=== PATIENT | male | born 1955 | race Caucasian/White ===

== ENCOUNTER 2017-04-26 12:38 | Inpatient (IN) | payer OTHER ==
[~2017-04-26] VITALS: Ht 182.9 cm; Wt 77.1 kg
[2017-04-26] MEDS ORDERED: Morphine Sulfate 10mg/ml Inj IVP ONE (13:15)
[2017-04-26 14:29] LABS: BASOPHILS % (AUTO) 1.2 % (0.0-2.0); EOSINOPHILS % (AUTO) 3.4 % (0.0-3.0); LYMPHOCYTES % (AUTO) 35.4 % (20.0-45.0); MEAN CORPUSCULAR HEMOGLOBIN 37.7 PG (27.0-31.0); MEAN CORPUSCULAR HGB CONC 34.9 G/DL (32.0-36.0); MEAN CORPUSCULAR VOLUME 108 FL (80-99); MONOCYTES % (AUTO) 9.2 % (1.0-10.0); NEUTROPHILS % (AUTO) 50.8 % (45.0-75.0); PLATELET COUNT 184 K/UL (150-450); RED BLOOD COUNT 4.31 M/UL (4.70-6.10); RED CELL DISTRIBUTION WIDTH 10.5 % (11.6-14.8); WHITE BLOOD COUNT 5.6 K/UL (4.8-10.8)
[2017-04-26 14:30] VITALS: BP 120/73
[2017-04-26 14:38] LABS: APPEARANCE,URINE CLEAR; KETONES,URINE NEGATIVE (NEGATIVE); LEUKOCYTE ESTERASE ,URINE NEGATIVE (NEGATIVE); NITRITE,URINE NEGATIVE (NEGATIVE); PH,URINE 5 (4.5-8.0); PROTEIN,URINE NEGATIVE (NEGATIVE); UROBILINOGEN,URINE NORMAL MG/DL (0.0-1.0)
[2017-04-26 14:48] LABS: ALANINE AMINOTRANSFERASE 189 U/L (12-78); ALBUMIN/GLOBULIN RATIO 0.9 (1.0-2.7); AMYLASE 159 U/L (25-115); ANION GAP 12 mmol/L (5-15); ASPARTATE AMINO TRANSFERASE 104 U/L (15-37); CALCIUM 9.3 MG/DL (8.5-10.1); CARBON DIOXIDE 22 MMOL/L (21-32); CHLORIDE 107 MMOL/L (98-107); CREATININE 0.9 MG/DL (0.55-1.30); GLOMERULAR FILTRATION RATE > 60 mL/min (>60); LIPASE 690 U/L (73-393); POTASSIUM 4.2 MMOL/L (3.5-5.1); SODIUM 141 MMOL/L (136-145); TOTAL PROTEIN 9.3 G/DL (6.4-8.2)
[2017-04-26] MEDS ORDERED: Morphine Sulfate 4mg/ml Inj IVP ONE (16:00)
--- NOTE | 2017-04-26 16:20 | Diagnostic Imaging Report ---
Indication: Abdominal pain Technique: Continuous helical transaxial imaging of the abdomen and pelvis was obtained from the lung bases to the pubic symphysis during intravenous contrast administration. Coronal 2-D reformats were also obtained. Study obtained in a Siemens sensation [address] Automatic Exposure Control was utilized. Total Dose length Product (DLP): [address] Dose Index Volume (CTDIvol): 12.57, 0.15 mGy Comparison: None Findings: There is mild posterior basilar atelectasis. Gallbladder is distended but otherwise unremarkable. The liver is low in attenuation consistent with fatty infiltration. Surgical clips noted at the gastric hiatus at the diaphragm level. A small hiatal hernia is noted. The pancreas and spleen unremarkable. There is no adrenal mass. Tiny low-density lesions demonstrated within both kidneys. The above the umbilicus the linea alba is markedly attenuated with suggestion of multiple small areas of mesenteric fat herniation into the subcutaneous fat. There is also an umbilical hernia containing fat. Diverticula noted in the sigmoid colon. No free fluid or free air identified. Moderate arterial calcifications are present. Moderate facet hypertrophy and sclerosis noted at the lower lumbar spine. Impression: Is fatty liver. Atherosclerotic disease. Multiple epigastric fat-containing hernias and a small umbilical hernia containing fat Diverticulosis of the colon. Surgery at the diaphragmatic hiatus. Small hiatal hernia noted. Lower lumbar facet arthropathy The CT scanner at [facility] is accredited by the [employer] and the scans are performed using dose optimization techniques as appropriate to a performed exam including Automatic Exposure control.
[2017-04-26 16:29] VITALS: BP 97/66
[2017-04-26 17:00] VITALS: BP 110/74
[2017-04-26] MEDS ORDERED: Miralax 17gm pkt ORAL PRN (17:00)
[2017-04-26] MEDS ORDERED: Mylanta II UD 30ml ORAL PRN (17:00)
[2017-04-26] MEDS ORDERED: D5 1/2NS 1,000 ML IV SCH (17:30)
[2017-04-26] MEDS: D5 1/2NS 1,000 ML IV SCH (18:43)
[2017-04-26 20:00] VITALS: BP 110/74
--- NOTE | 2017-04-26 20:22 | History and Physical ---
History of Present Illness General Reason for Hospitalization: Abdominal Pain Present Illness Allergies: Coded Allergies: No Known Allergies (Unverified , 06/01/16) Medication History No Active Prescriptions or Reported Meds Patient History Healthcare decision maker Resuscitation status Full Code Advanced Directive on File Family History Family History: Patient reports no known family medical history. Physical Exam Last 24 Hour Vital Signs Date Time Temp Pulse Resp B/P (MAP) Pulse Ox O2 Delivery O2 Flow Rate FiO2 04/26/17 20:00 97.3 72 19 110/74 95 Room Air 04/26/17 17:00 97.3 82 18 110/74 93 Room Air 04/26/17 16:30 98.1 78 20 113/72 94 Room Air 04/26/17 16:29 98.1 78 20 97/66 94 Room Air 04/26/17 14:30 97.9 90 15 120/73 98 Room Air 04/26/17 12:47 97.9 106 20 119/71 98 Room Air Intake and Output 04/26/17 04/27/17 19:00 07:00 Intake Total 1000 ml Output Total 550 ml Balance 450 ml Intake IV Total 1000 ml Output Urine Total 550 ml # Voids 3 Laboratory Tests Test 04/26/17 13:25 04/26/17 13:29 Urine Color Pale yellow Urine Appearance Clear Urine pH 5 (4.5-8.0) Urine Specific [place] 1.005 (1.005-1.035) Urine Protein Negative (NEGATIVE) Urine Glucose (UA) Negative (NEGATIVE) Urine Ketones Negative (NEGATIVE) Urine Occult Blood Negative (NEGATIVE) Urine Nitrite Negative (NEGATIVE) Urine Bilirubin Negative (NEGATIVE) Urine Urobilinogen Normal MG/DL (0.0-1.0) Urine Leukocyte Esterase Negative (NEGATIVE) White Blood Count 5.6 K/UL (4.8-10.8) Red Blood Count 4.31 M/UL (4.70-6.10) L Hemoglobin 16.2 G/DL (14.2-18.0) Hematocrit 46.6 % (42.0-52.0) Mean Corpuscular Volume 108 FL (80-99) H Mean Corpuscular Hemoglobin 37.7 PG (27.0-31.0) H Mean Corpuscular Hemoglobin Concent 34.9 G/DL (32.0-36.0) Red Cell Distribution Width 10.5 % (11.6-14.8) L Platelet Count 184 K/UL (150-450) Mean Platelet Volume 7.0 FL (6.5-10.1) Neutrophils (%) (Auto) 50.8 % (45.0-75.0) Lymphocytes (%) (Auto) 35.4 % (20.0-45.0) Monocytes (%) (Auto) 9.2 % (1.0-10.0) Eosinophils (%) (Auto) 3.4 % (0.0-3.0) H Basophils (%) (Auto) 1.2 % (0.0-2.0) Prothrombin Time 10.0 SEC (9.30-11.50) Prothromb Time International Ratio 1.0 (0.9-1.1) Activated Partial Thromboplast Time 28 SEC (23-33) Sodium Level 141 MMOL/L (136-145) Potassium Level 4.2 MMOL/L (3.5-5.1) Chloride Level 107 MMOL/L (98-107) Carbon Dioxide Level 22 MMOL/L (21-32) Anion Gap 12 mmol/L (5-15) Blood Urea Nitrogen 11 mg/dL (7-18) Creatinine 0.9 MG/DL (0.55-1.30) Estimat Glomerular Filtration Rate > 60 mL/min (>60) Glucose Level 85 MG/DL (74-106) Calcium Level 9.3 MG/DL (8.5-10.1) Total Bilirubin 0.3 MG/DL (0.2-1.0) Aspartate Amino Transf (AST/SGOT) 104 U/L (15-37) H Alanine Aminotransferase (ALT/SGPT) 189 U/L (12-78) H Alkaline Phosphatase 55 U/L (46-116) Troponin I 0.000 ng/mL (0.000-0.056) Total Protein 9.3 G/DL (6.4-8.2) H Albumin 4.3 G/DL (3.4-5.0) Globulin 5.0 g/dL Albumin/Globulin Ratio 0.9 (1.0-2.7) L Amylase Level 159 U/L (25-115) H Lipase 690 U/L (73-393) H Serum Alcohol 340 mg/dL Height (Feet): 6 Height (Inches): 0.00 Weight (Pounds): 170 Medications Current Medications Medications (Trade) Dose Ordered Sig/Mukesh Route PRN Reason Start Time Stop Time Status Last Admin Dose Admin Acetaminophen (Tylenol) 650 mg Q4H PRN ORAL Mild Pain (Pain Scale 1-3) 04/26/17 17:00 05/26/17 16:59 Al Hydroxide/Mg Hydroxide (Mylanta II) 30 ml Q6H PRN ORAL dyspepsia 04/26/17 17:00 05/26/17 16:59 Dextrose (Dextrose 50%) STAT PRN IV Hypoglycemia 04/26/17 17:00 05/26/17 16:59 Dextrose/Sodium Chloride 1,000 ml @ 125 mls/hr Q8H IV 04/26/17 17:30 05/26/17 17:29 04/26/17 18:43 Diphenhydramine HCl (Benadryl) 25 mg Q6H PRN ORAL Itching/Pruritis 04/26/17 17:00 05/26/17 16:59 Docusate Sodium (Colace) 100 mg EVERY 12 HOURS ORAL 04/26/17 21:00 05/26/17 20:59 Folic Acid 1 mg/ Magnesium Sulfate 2000 mg/ Multivitamins 10 ml/Sodium Chloride 1,014.2 ml @ 125 mls/ hr Q24H IV 04/26/17 20:00 05/26/17 19:59 Ondansetron HCl (Zofran) 4 mg Q6H PRN IVP Nausea & Vomiting 04/26/17 17:00 05/26/17 16:59 Pantoprazole (Protonix) 40 mg DAILY IV 04/26/17 18:00 05/26/17 17:59 Polyethylene Glycol (Miralax) 17 gm HSPRN PRN ORAL Constipation 04/26/17 17:00 05/26/17 16:59 Thiamine HCl 100 mg/Dextrose 56 ml @ 112 mls/hr Q24H IVPB 04/26/17 20:00 05/26/17 19:59 Guzman Garcia M.D. Apr 26, 2017 20:22
[2017-04-26] MEDS: Thiamine 100mg in D5W 55ml IVPB SCH (20:49)
[2017-04-26] MEDS: Folic Acid 1 MG, Magnesium Sulfate 2,000 MG, Multivitamin - 12 Injection 10 ML in NS w/... IV SCH (20:49)
[2017-04-26] MEDS: Docusate 100mg cap ORAL SCH (20:50)
[2017-04-26] MEDS: Pantoprazole Inj IV SCH (20:51)
[2017-04-26] MEDS: Morphine Sulfate 4mg/ml Inj IVP PRN (22:08)
[2017-04-26 23:53] VITALS: BP 125/84
[2017-04-27] MEDS: D5 1/2NS 1,000 ML IV SCH ×3 (01:28→17:57)
[2017-04-27 04:00] VITALS: BP 116/81
[2017-04-27] MEDS: Morphine Sulfate 4mg/ml Inj IVP PRN ×2 (05:54→11:45)
[2017-04-27 07:14] LABS: MEAN CORPUSCULAR HEMOGLOBIN 36.1 PG (27.0-31.0); MEAN CORPUSCULAR HGB CONC 31.8 G/DL (32.0-36.0); MEAN CORPUSCULAR VOLUME 114 FL (80-99); MEAN PLATELET VOLUME 6.7 FL (6.5-10.1); PLATELET COUNT 137 K/UL (150-450); RED BLOOD COUNT 3.92 M/UL (4.70-6.10); RED CELL DISTRIBUTION WIDTH 10.8 % (11.6-14.8); WHITE BLOOD COUNT 5.6 K/UL (4.8-10.8)
[2017-04-27 07:43] LABS: ALANINE AMINOTRANSFERASE 157 U/L (12-78); ANION GAP 12 mmol/L (5-15); ASPARTATE AMINO TRANSFERASE 80 U/L (15-37); CALCIUM 8.6 MG/DL (8.5-10.1); CARBON DIOXIDE 22 MMOL/L (21-32); CHLORIDE 110 MMOL/L (98-107); CREATININE 0.9 MG/DL (0.55-1.30); GLOMERULAR FILTRATION RATE > 60 mL/min (>60); MAGNESIUM 2.7 MG/DL (1.8-2.4); POTASSIUM 4.6 MMOL/L (3.5-5.1); SODIUM 144 MMOL/L (136-145); TOTAL PROTEIN 7.5 G/DL (6.4-8.2)
[2017-04-27] MEDS: Docusate 100mg cap ORAL SCH ×2 (08:39→21:58)
[2017-04-27] MEDS: Pantoprazole Inj IV SCH (08:39)
[2017-04-27 08:46] VITALS: BP 135/89
[2017-04-27 10:29] LABS: ANISOCYTOSIS 1+; BAND NEUTROPHILS % (MANUAL) 0 % (0-8); BASOPHILS % (MANUAL) 0 % (0-2); EOSINOPHILS % (MANUAL) 2 % (0-3); LYMPHOCYTES % (MANUAL) 22 % (20-45); MACROCYTES 2+; NEUTROPHILS % (MANUAL) 68 % (45-75); PLATELET ESTIMATE DECREASED; TOTAL CELLS COUNTED 100
[2017-04-27 10:30] LABS: PLATELET MORPHOLOGY NORMAL
[2017-04-27 12:02] VITALS: BP 134/83
[2017-04-27] MEDS ORDERED: chlordiazePOXIDE 25mg Cap ORAL PRN (12:45)
[2017-04-27] MEDS ORDERED: Thiamine HCl 100 MG, Folic Acid 1 MG, Magnesium Sulfate 2,000 MG, Multivitamin - 12 Inj... IV SCH ×5 (12:45)
--- NOTE | 2017-04-27 12:53 | GI Initial Consult Note ---
History of Present Illness General Date patient seen: Apr 27, 2017 Time patient seen: 12:48 Reason for Hospitalization: Abdominal Pain Referring physician: CAREN DUBON Reason for Consultation: PANCREATITIS Present Illness HPI Patient is a 61-year-old male presented after increased abdominal pain after recent heavy alcohol intake. Patient reported having increased abdominal bloating. Patient prior history of pancreatitis. Patient states that he had a partial gastrectomy in the past and had prior abdominal surgery. Pain did not radiate he denied any hematemesis or bloody stools. Patient reports having a no fever he reported having pain for several days. Pt seen this morning awake A &Ox4 NAD c/o of LUQ 5/10 pain. The patient denies any medical history. However , states he's been a heavy drinker his entire life; approximately 4-5 40 ounces of beer per day over the past 30+ years. Pt is also a tobacco user, denies any drug above. Denies any N/V or any diarrhea at this time. States he's had a colonoscopy within the past 5 years with unremarkable results. History of Hep C. He presents today with elevated lipase levels of 690 , transaminitis, and serum alcohol of 340. Home Meds No Active Prescriptions or Reported Meds Med list reviewed/reconciled: Yes Allergies: Coded Allergies: No Known Allergies (Unverified , 06/01/16) Patient History History Provided By: Patient, Medical Record Family History Narrative Past Medical History: No History, Except For Social History: Reports: alcohol use, smoking Review of Systems All Other Systems: negative except mentioned in HPI Physical Exam Vital Signs Date Time Temp Pulse Resp B/P (MAP) Pulse Ox O2 Delivery O2 Flow Rate FiO2 04/26/17 12:47 97.9 106 20 119/71 98 Room Air Sp02 EP Interpretation: reviewed, normal Labs Laboratory Tests Test 04/26/17 13:25 04/26/17 13:29 04/27/17 05:15 Urine Color Pale yellow Urine Appearance Clear Urine pH 5 (4.5-8.0) Urine Specific [place] 1.005 (1.005-1.035) Urine Protein Negative (NEGATIVE) Urine Glucose (UA) Negative (NEGATIVE) Urine Ketones Negative (NEGATIVE) Urine Occult Blood Negative (NEGATIVE) Urine Nitrite Negative (NEGATIVE) Urine Bilirubin Negative (NEGATIVE) Urine Urobilinogen Normal MG/DL (0.0-1.0) Urine Leukocyte Esterase Negative (NEGATIVE) White Blood Count 5.6 K/UL (4.8-10.8) 5.6 K/UL (4.8-10.8) Red Blood Count 4.31 M/UL (4.70-6.10) L 3.92 M/UL (4.70-6.10) L Hemoglobin 16.2 G/DL (14.2-18.0) 14.2 G/DL (14.2-18.0) Hematocrit 46.6 % (42.0-52.0) 44.5 % (42.0-52.0) Mean Corpuscular Volume 108 FL (80-99) H 114 FL (80-99) H Mean Corpuscular Hemoglobin 37.7 PG (27.0-31.0) H 36.1 PG (27.0-31.0) H Mean Corpuscular Hemoglobin Concent 34.9 G/DL (32.0-36.0) 31.8 G/DL (32.0-36.0) L Red Cell Distribution Width 10.5 % (11.6-14.8) L 10.8 % (11.6-14.8) L Platelet Count 184 K/UL (150-450) 137 K/UL (150-450) L Mean Platelet Volume 7.0 FL (6.5-10.1) 6.7 FL (6.5-10.1) Neutrophils (%) (Auto) 50.8 % (45.0-75.0) % (45.0-75.0) Lymphocytes (%) (Auto) 35.4 % (20.0-45.0) % (20.0-45.0) Monocytes (%) (Auto) 9.2 % (1.0-10.0) % (1.0-10.0) Eosinophils (%) (Auto) 3.4 % (0.0-3.0) H % (0.0-3.0) Basophils (%) (Auto) 1.2 % (0.0-2.0) % (0.0-2.0) Prothrombin Time 10.0 SEC (9.30-11.50) Prothromb Time International Ratio 1.0 (0.9-1.1) Activated Partial Thromboplast Time 28 SEC (23-33) Sodium Level 141 MMOL/L (136-145) 144 MMOL/L (136-145) Potassium Level 4.2 MMOL/L (3.5-5.1) 4.6 MMOL/L (3.5-5.1) Chloride Level 107 MMOL/L (98-107) 110 MMOL/L (98-107) H Carbon Dioxide Level 22 MMOL/L (21-32) 22 MMOL/L (21-32) Anion Gap 12 mmol/L (5-15) 12 mmol/L (5-15) Blood Urea Nitrogen 11 mg/dL (7-18) 9 mg/dL (7-18) Creatinine 0.9 MG/DL (0.55-1.30) 0.9 MG/DL (0.55-1.30) Estimat Glomerular Filtration Rate > 60 mL/min (>60) > 60 mL/min (>60) Glucose Level 85 MG/DL (74-106) 71 MG/DL (74-106) L Calcium Level 9.3 MG/DL (8.5-10.1) 8.6 MG/DL (8.5-10.1) Total Bilirubin 0.3 MG/DL (0.2-1.0) 0.5 MG/DL (0.2-1.0) Aspartate Amino Transf (AST/SGOT) 104 U/L (15-37) H 80 U/L (15-37) H Alanine Aminotransferase (ALT/SGPT) 189 U/L (12-78) H 157 U/L (12-78) H Alkaline Phosphatase 55 U/L (46-116) 47 U/L (46-116) Troponin I 0.000 ng/mL (0.000-0.056) Total Protein 9.3 G/DL (6.4-8.2) H 7.5 G/DL (6.4-8.2) Albumin 4.3 G/DL (3.4-5.0) 3.7 G/DL (3.4-5.0) Globulin 5.0 g/dL 3.8 g/dL Albumin/Globulin Ratio 0.9 (1.0-2.7) L 1.0 (1.0-2.7) Amylase Level 159 U/L (25-115) H Lipase 690 U/L (73-393) H Serum Alcohol 340 mg/dL Differential Total Cells Counted 100 Neutrophils % (Manual) 68 % (45-75) Lymphocytes % (Manual) 22 % (20-45) Monocytes % (Manual) 8 % (1-10) Eosinophils % (Manual) 2 % (0-3) Basophils % (Manual) 0 % (0-2) Band Neutrophils 0 % (0-8) Platelet Estimate Decreased L Platelet Morphology Normal Anisocytosis 1+ Macrocytosis 2+ Phosphorus Level 3.5 MG/DL (2.5-4.9) Magnesium Level 2.7 MG/DL (1.8-2.4) H General Appearance: well appearing, no apparent distress, alert Head: normocephalic EENT: PERRL/EOMI, normal ENT inspection Neck: supple Respiratory: normal breath sounds, no respiratory distress Cardiovascular: normal rate Gastrointestinal: normal inspection, non tender, soft, normal bowel sounds, non -distended Rectal: deferred Genitourinary: deferred Musculoskeletal: normal inspection, back normal Neurologic: normal inspection, alert, oriented x3, responsive Psychiatric: normal inspection, judgement/insight normal, memory normal Skin: normal inspection, normal color, no rash, warm/dry, palpation normal, well hydrated Lymphatic: normal inspection, no adenopathy Current Medications Current Medications Medications (Trade) Dose Ordered Sig/M[place]esh Route PRN Reason Start Time Stop Time Status Last Admin Dose Admin Acetaminophen (Tylenol) 650 mg Q4H PRN ORAL Mild Pain (Pain Scale 1-3) 04/26/17 17:00 05/26/17 16:59 Al Hydroxide/Mg Hydroxide (Mylanta II) 30 ml Q6H PRN ORAL dyspepsia 04/26/17 17:00 05/26/17 16:59 Dextrose (Dextrose 50%) STAT PRN IV Hypoglycemia 04/26/17 17:00 05/26/17 16:59 Dextrose/Sodium Chloride 1,000 ml @ 125 mls/hr Q8H IV 04/26/17 17:30 05/26/17 17:29 04/27/17 06:20 Diphenhydramine HCl (Benadryl) 25 mg Q6H PRN ORAL Itching/Pruritis 04/26/17 17:00 05/26/17 16:59 Docusate Sodium (Colace) 100 mg EVERY 12 HOURS ORAL 04/26/17 21:00 05/26/17 20:59 04/27/17 08:39 Folic Acid 1 mg/ Magnesium Sulfate 2000 mg/ Multivitamins 10 ml/Sodium Chloride 1,014.2 ml @ 125 mls/ hr Q24H IV 04/26/17 20:00 05/26/17 19:59 04/26/17 20:49 Morphine Sulfate (Morphine Sulfate) 4 mg Q4H PRN IVP For Moderate to Severe Pain 04/26/17 21:30 05/03/17 21:29 04/27/17 11:45 Ondansetron HCl (Zofran) 4 mg Q6H PRN IVP Nausea & Vomiting 04/26/17 17:00 05/26/17 16:59 04/27/17 08:38 Pantoprazole (Protonix) 40 mg DAILY IV 04/26/17 18:00 05/26/17 17:59 04/27/17 08:39 Polyethylene Glycol (Miralax) 17 gm HSPRN PRN ORAL Constipation 04/26/17 17:00 05/26/17 16:59 Thiamine HCl 100 mg/Dextrose 56 ml @ 112 mls/hr Q24H IVPB 04/26/17 20:00 05/26/17 19:59 04/26/17 20:49 GI: Plan Problems: (1) Pancreatitis, acute (2) Alcohol abuse (3) Abnormal LFTs Plan CT AP noted >> fatty liver abdominal U/S pending serum ETOH 340 elevated lipase 360 CLD, adv as tolerated banana bag IV pain mgmt Librium prn hepatitis panel ppi fu labs, lipase Discussed with Dr. Yip. Thank you for this patient referral, we will follow. Keyana Neely N.P. Apr 27, 2017 12:53
[2017-04-27 15:39] VITALS: BP 111/73
--- NOTE | 2017-04-27 15:43 | History and Physical ---
History of Present Illness General Date patient seen: Apr 27, 2017 Reason for Hospitalization: Abdominal Pain Present Illness HPI 61 y/o male with a PMH of Hepatitis C, gastric ulcer s/p partial gastrectomy, and appendectomy who presents with recent heavy alcohol intake. He reports prior history of pancreatitis x 2. He reports epigastric pain that is constant and stabbing in nature. Reports non-bloody, nonbilious emesis. Reports tremors. States that he has been a heavy drinker for the last 40 years Denies diarrhea, constipation, fevers, chills, sob, cp. States that he had a colonoscopy several years ago with unremarkable results. He presents today with elevated lipase levels of 690, transaminitis, and serum alcohol of 340. Allergies: Coded Allergies: No Known Allergies (Unverified , 06/01/16) Medication History No Active Prescriptions or Reported Meds Patient History History Provided By: Patient Healthcare decision maker Resuscitation status Full Code Advanced Directive on File Family History Family History: Patient reports no known family medical history. Review of Systems Constitutional: Reports: other - tremors Eye: Reports: no symptoms ENT: Reports: no symptoms Respiratory: Reports: no symptoms Cardiovascular: Reports: no symptoms Gastrointestinal: Reports: abdominal pain, nausea, vomiting Genitourinary: Reports: no symptoms Musculoskeletal: Reports: no symptoms Skin: Reports: no symptoms Psychiatric: Reports: no symptoms Neurological: Reports: no symptoms Endocrine: Reports: no symptoms Physical Exam General Appearance: no apparent distress HEENT: normocephalic, atraumatic Neck: non-tender, normal alignment, supple Respiratory/Chest: chest wall non-tender, lungs clear, normal breath sounds Cardiovascular/Chest: normal peripheral pulses, regular rhythm, tachycardia Abdomen: normal bowel sounds, soft, other - tenderness Extremities: normal range of motion Skin Exam: normal pigmentation, warm/dry 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, no motor/sensory deficits, alert, oriented x 3 Last 24 Hour Vital Signs Date Time Temp Pulse Resp B/P (MAP) Pulse Ox O2 Delivery O2 Flow Rate FiO2 04/27/17 12:15 98.2 04/27/17 12:02 98.2 61 20 134/83 95 Room Air 04/27/17 08:46 97.7 72 20 135/89 96 Room Air 04/27/17 04:00 97.8 65 18 116/81 95 Room Air 04/26/17 23:53 97.9 66 18 125/84 95 Room Air 04/26/17 20:00 97.3 72 19 110/74 95 Room Air 04/26/17 17:00 97.3 82 18 110/74 93 Room Air 04/26/17 16:30 98.1 78 20 113/72 94 Room Air 04/26/17 16:29 98.1 78 20 97/66 94 Room Air Intake and Output 04/27/17 04/28/17 19:00 07:00 Intake Total 420 ml Balance 420 ml Intake Oral 420 ml # Voids 3 # Bowel Movements 1 Laboratory Tests Test 04/27/17 05:15 White Blood Count 5.6 K/UL (4.8-10.8) Red Blood Count 3.92 M/UL (4.70-6.10) L Hemoglobin 14.2 G/DL (14.2-18.0) Hematocrit 44.5 % (42.0-52.0) Mean Corpuscular Volume 114 FL (80-99) H Mean Corpuscular Hemoglobin 36.1 PG (27.0-31.0) H Mean Corpuscular Hemoglobin Concent 31.8 G/DL (32.0-36.0) L Red Cell Distribution Width 10.8 % (11.6-14.8) L Platelet Count 137 K/UL (150-450) L Mean Platelet Volume 6.7 FL (6.5-10.1) Neutrophils (%) (Auto) % (45.0-75.0) Lymphocytes (%) (Auto) % (20.0-45.0) Monocytes (%) (Auto) % (1.0-10.0) Eosinophils (%) (Auto) % (0.0-3.0) Basophils (%) (Auto) % (0.0-2.0) Differential Total Cells Counted 100 Neutrophils % (Manual) 68 % (45-75) Lymphocytes % (Manual) 22 % (20-45) Monocytes % (Manual) 8 % (1-10) Eosinophils % (Manual) 2 % (0-3) Basophils % (Manual) 0 % (0-2) Band Neutrophils 0 % (0-8) Platelet Estimate Decreased L Platelet Morphology Normal Anisocytosis 1+ Macrocytosis 2+ Sodium Level 144 MMOL/L (136-145) Potassium Level 4.6 MMOL/L (3.5-5.1) Chloride Level 110 MMOL/L (98-107) H Carbon Dioxide Level 22 MMOL/L (21-32) Anion Gap 12 mmol/L (5-15) Blood Urea Nitrogen 9 mg/dL (7-18) Creatinine 0.9 MG/DL (0.55-1.30) Estimat Glomerular Filtration Rate > 60 mL/min (>60) Glucose Level 71 MG/DL (74-106) L Calcium Level 8.6 MG/DL (8.5-10.1) Phosphorus Level 3.5 MG/DL (2.5-4.9) Magnesium Level 2.7 MG/DL (1.8-2.4) H Total Bilirubin 0.5 MG/DL (0.2-1.0) Aspartate Amino Transf (AST/SGOT) 80 U/L (15-37) H Alanine Aminotransferase (ALT/SGPT) 157 U/L (12-78) H Alkaline Phosphatase 47 U/L (46-116) Total Protein 7.5 G/DL (6.4-8.2) Albumin 3.7 G/DL (3.4-5.0) Globulin 3.8 g/dL Albumin/Globulin Ratio 1.0 (1.0-2.7) Height (Feet): 6 Height (Inches): 0.00 Weight (Pounds): 170 Medications Current Medications Medications (Trade) Dose Ordered Sig/[place] Route PRN Reason Start Time Stop Time Status Last Admin Dose Admin Acetaminophen (Tylenol) 650 mg Q4H PRN ORAL Mild Pain (Pain Scale 1-3) 04/26/17 17:00 05/26/17 16:59 Al Hydroxide/Mg Hydroxide (Mylanta II) 30 ml Q6H PRN ORAL dyspepsia 04/26/17 17:00 05/26/17 16:59 Chlordiazepoxide (Librium) 25 mg Q6H PRN ORAL Agitation 04/27/17 12:45 05/04/17 12:44 Dextrose (Dextrose 50%) STAT PRN IV Hypoglycemia 04/26/17 17:00 05/26/17 16:59 Dextrose/Sodium Chloride 1,000 ml @ 125 mls/hr Q8H IV 04/26/17 17:30 05/26/17 17:29 04/27/17 06:20 Diphenhydramine HCl (Benadryl) 25 mg Q6H PRN ORAL Itching/Pruritis 04/26/17 17:00 05/26/17 16:59 Docusate Sodium (Colace) 100 mg EVERY 12 HOURS ORAL 04/26/17 21:00 05/26/17 20:59 04/27/17 08:39 Folic Acid 1 mg/ Magnesium Sulfate 2000 mg/ Multivitamins 10 ml/Sodium Chloride 1,014.2 ml @ 125 mls/ hr Q24H IV 04/26/17 20:00 05/26/17 19:59 04/26/17 20:49 Morphine Sulfate (Morphine Sulfate) 4 mg Q4H PRN IVP For Moderate to Severe Pain 04/26/17 21:30 05/03/17 21:29 04/27/17 11:45 Ondansetron HCl (Zofran) 4 mg Q6H PRN IVP Nausea & Vomiting 04/26/17 17:00 05/26/17 16:59 04/27/17 08:38 Pantoprazole (Protonix) 40 mg DAILY IV 04/26/17 18:00 05/26/17 17:59 04/27/17 08:39 Polyethylene Glycol (Miralax) 17 gm HSPRN PRN ORAL Constipation 04/26/17 17:00 05/26/17 16:59 Thiamine HCl 100 mg/Dextrose 56 ml @ 112 mls/hr Q24H IVPB 04/26/17 20:00 05/26/17 19:59 04/26/17 20:49 Assessment/Plan Problem List: (1) Pancreatitis, acute ICD Codes: K85.90 - Acute pancreatitis without necrosis or infection, unspecified SNOMED: 161384764 (2) Alcohol abuse ICD Codes: F10.10 - Alcohol abuse, uncomplicated SNOMED: 61989718, 07544326 (3) Abnormal LFTs ICD Codes: R79.89 - Other specified abnormal findings of blood chemistry SNOMED: 281314616 (4) Fatty liver ICD Codes: K76.0 - Fatty (change of) liver, not elsewhere classified SNOMED: 185913862 Status: stable Assessment/Plan - Admit to inpatient - IVF - banana bag daily - librium prn - pain control and antiemetics - PPi - Trend lipase - Hepatitis panel - CLD and advance as tolerated - GI consulted. appreciate recs -- CT a/p reviewed showing fatty liver -- abdominal U/S pending d/w patient, RN Lexus Gray N.P. Apr 27, 2017 15:43
[2017-04-27 20:00] VITALS: BP 118/76
[2017-04-27] MEDS: Thiamine 100mg in D5W 55ml IVPB SCH (21:58)
[2017-04-27] MEDS: Folic Acid 1 MG, Magnesium Sulfate 2,000 MG, Multivitamin - 12 Injection 10 ML in NS w/... IV SCH (21:59)
[2017-04-28] VITALS: BP 123/85
[2017-04-28] MEDS: D5 1/2NS 1,000 ML IV SCH ×3 (01:53→10:21)
[2017-04-28 04:00] VITALS: BP 125/86
[2017-04-28 08:00] VITALS: BP 121/69
[2017-04-28 08:39] LABS: MEAN CORPUSCULAR HEMOGLOBIN 36.2 PG (27.0-31.0); MEAN CORPUSCULAR HGB CONC 32.2 G/DL (32.0-36.0); MEAN CORPUSCULAR VOLUME 112 FL (80-99); MEAN PLATELET VOLUME 7.3 FL (6.5-10.1); PLATELET COUNT 122 K/UL (150-450); RED BLOOD COUNT 3.99 M/UL (4.70-6.10); RED CELL DISTRIBUTION WIDTH 10.7 % (11.6-14.8); WHITE BLOOD COUNT 5.5 K/UL (4.8-10.8)
[2017-04-28 08:43] LABS: AMYLASE 110 U/L (25-115); ANION GAP 8 mmol/L (5-15); CALCIUM 8.7 MG/DL (8.5-10.1); CARBON DIOXIDE 25 MMOL/L (21-32); CHLORIDE 104 MMOL/L (98-107); GLOMERULAR FILTRATION RATE > 60 mL/min (>60); LIPASE 351 U/L (73-393); SODIUM 137 MMOL/L (136-145)
[2017-04-28] MEDS: Docusate 100mg cap ORAL SCH (08:59)
[2017-04-28 09:53] LABS: BAND NEUTROPHILS % (MANUAL) 1 % (0-8); BASOPHILS % (MANUAL) 1 % (0-2); LYMPHOCYTES % (MANUAL) 20 % (20-45); NEUTROPHILS % (MANUAL) 75 % (45-75); TOTAL CELLS COUNTED 100
[2017-04-28 09:54] LABS: EOSINOPHILS % (MANUAL) 0 % (0-3); PLATELET ESTIMATE DECREASED; PLATELET MORPHOLOGY NORMAL
--- NOTE | 2017-04-28 10:02 | Diagnostic Imaging Report ---
Indication:Abdominal pain. Elevated liver function tests. Elevated pancreatic enzymes Technique: Grayscale and duplex Doppler imaging of the abdomen performed. Comparison: None Findings: The liver is echogenic consistent with fatty infiltration. No gallstones are demonstrated. Some prominence of the CBD noted, nonspecific. This may be normal. Please correlate clinically. Small cysts are present within the right kidney. Pancreas is not seen due to bowel gas. There is no free fluid. Impression: Mild fatty liver. Pancreas not visualized due to bowel gas. Please refer to the CT abdomen report
[2017-04-28] MEDS: Pantoprazole Inj IV SCH (10:20)
[2017-04-28 11:53] VITALS: BP 122/71
[2017-04-28] MEDS ORDERED: Tubing IV Secondary IV ONE (11:59)
--- NOTE | 2017-04-28 13:16 | Discharge Summary ---
Discharge Summary Hospital Course Date of Admission Apr 26, 2017 at 15:31 Date of Discharge 04/28/17 Admitting Diagnosis pancreatitis Reason for Hospitalization: acute pancreatitis HPI 61 y/o male with a PMH of Hepatitis C, gastric ulcer s/p partial gastrectomy, and appendectomy who presents with recent heavy alcohol intake. He reports prior history of pancreatitis x 2. He reports epigastric pain that is constant and stabbing in nature. Reports non-bloody, nonbilious emesis. Reports tremors. States that he has been a heavy drinker for the last 40 years Denies diarrhea, constipation, fevers, chills, sob, cp. States that he had a colonoscopy several years ago with unremarkable results. He presents today with elevated lipase levels of 690, transaminitis, and serum alcohol of 340. Consultations GI Hospital Course Pt was admitted and seen by GI. He was kept NPO and on IVFs. Once improved, he was started on clear liquid diet and slowly advanced as tolerated. His LFTs downtrended. CT a/p showed no acute abnormality. U/S abd showed fatty liver. Discharge Medications Medication Profile: No Active Prescriptions or Reported Meds Discharge Condition Upon Discharge: stable Discharge Disposition Patient was discharged to Home (01) Discharge Diagnoses: (1) Pancreatitis, acute (2) Fatty liver (3) Alcohol abuse (4) Abnormal LFTs Guzman Garcia M.D. Apr 28, 2017 13:16
--- NOTE | 2017-04-28 14:37 | GI Progress Note ---
Assessment/Plan Problems: (1) Fatty liver ICD Codes: K76.0 - Fatty (change of) liver, not elsewhere classified SNOMED: 378534134 (2) Alcohol abuse ICD Codes: F10.10 - Alcohol abuse, uncomplicated SNOMED: 97235069, 26239505 (3) Pancreatitis, acute ICD Codes: K85.90 - Acute pancreatitis without necrosis or infection, unspecified SNOMED: 712604298 (4) Abnormal LFTs ICD Codes: R79.89 - Other specified abnormal findings of blood chemistry SNOMED: 553423694 Status: stable Status Narrative Discussed with Dr. Yip. Assessment/Plan CT AP noted >> fatty liver abdominal U/S pending serum ETOH 340 elevated lipase 360 okay for DC per GI standpoint regular diet pain mgmt Librium prn hepatitis panel ppi fu labs, lipase ETOH cessation education given Subjective Gastrointestinal/Abdominal: Reports: no symptoms Subjective ready to home Objective Last 24 Hour Vital Signs Date Time Temp Pulse Resp B/P (MAP) Pulse Ox O2 Delivery O2 Flow Rate FiO2 04/28/17 11:53 97.9 69 19 122/71 97 Room Air 04/28/17 08:00 98.3 72 19 121/69 96 Room Air 04/28/17 04:00 97.5 76 17 125/86 96 Room Air 04/28/17 00:00 97.6 70 18 123/85 96 Room Air 04/27/17 20:00 97.8 68 18 118/76 94 Room Air 04/27/17 15:39 98.4 58 19 111/73 94 Room Air Intake and Output 04/28/17 04/29/17 19:00 07:00 Intake Total 725 ml Output Total 700 ml Balance 25 ml Intake Oral 350 ml IV Total 375 ml Output Urine Total 700 ml Laboratory Tests Test 04/28/17 08:00 White Blood Count 5.5 K/UL (4.8-10.8) Red Blood Count 3.99 M/UL (4.70-6.10) L Hemoglobin 14.4 G/DL (14.2-18.0) Hematocrit 44.8 % (42.0-52.0) Mean Corpuscular Volume 112 FL (80-99) H Mean Corpuscular Hemoglobin 36.2 PG (27.0-31.0) H Mean Corpuscular Hemoglobin Concent 32.2 G/DL (32.0-36.0) Red Cell Distribution Width 10.7 % (11.6-14.8) L Platelet Count 122 K/UL (150-450) L Mean Platelet Volume 7.3 FL (6.5-10.1) Neutrophils (%) (Auto) % (45.0-75.0) Lymphocytes (%) (Auto) % (20.0-45.0) Monocytes (%) (Auto) % (1.0-10.0) Eosinophils (%) (Auto) % (0.0-3.0) Basophils (%) (Auto) % (0.0-2.0) Differential Total Cells Counted 100 Neutrophils % (Manual) 75 % (45-75) Lymphocytes % (Manual) 20 % (20-45) Monocytes % (Manual) 3 % (1-10) Eosinophils % (Manual) 0 % (0-3) Basophils % (Manual) 1 % (0-2) Band Neutrophils 1 % (0-8) Platelet Estimate Decreased L Platelet Morphology Normal Sodium Level 137 MMOL/L (136-145) Potassium Level 4.0 MMOL/L (3.5-5.1) Chloride Level 104 MMOL/L (98-107) Carbon Dioxide Level 25 MMOL/L (21-32) Anion Gap 8 mmol/L (5-15) Blood Urea Nitrogen 10 mg/dL (7-18) Creatinine 1.0 MG/DL (0.55-1.30) Estimat Glomerular Filtration Rate > 60 mL/min (>60) Glucose Level 152 MG/DL (74-106) H Calcium Level 8.7 MG/DL (8.5-10.1) Amylase Level 110 U/L (25-115) Lipase 351 U/L (73-393) Hepatitis A IgM Antibody Pending Hepatitis B Surface Antigen Pending Hepatitis B Core IgM Antibody Pending Hepatitis C Antibody Pending Height (Feet): 6 Height (Inches): 0.00 Weight (Pounds): 170 General Appearance: WD/WN, no apparent distress, alert Cardiovascular: normal rate Respiratory/Chest: normal breath sounds, no respiratory distress Abdominal Exam: normal bowel sounds, non tender, soft Extremities: normal range of motion, non-tender Keyana Neely N.PAng Apr 28, 2017 14:37
--- NOTE | 2017-04-30 00:15 | Emergency Room Report ---
History of Present Illness General Chief Complaint: Abdominal Pain Source: Patient Present Illness HPI 61-year-old male presents to the emergency department complaining of 10 on a 10 in severity epigastric and right upper quadrant abdominal pain x2 days with associated nausea and vomiting. Patient also reports that he spat up some blood -tinged due to. Patient denies bright red blood in his vomit. Patient denies black tarry stools or blood in the stool. Patient reports history of pancreatitis and alcohol use he states that he had alcohol use yesterday. Patient denies fevers, chills. He denies dizziness, syncope, chest pain, palpitations or rashes. He denies recent travel or ill contacts he denies constipation or diarrhea. Patient states that he feels that his abdomen is very bloated or distended. Patient denies appreciable abdominal tenderness. Allergies: Coded Allergies: No Known Allergies (Unverified , 06/01/16) Patient History Past Medical History: see triage record, other - ETOH and Pancreatitis Past Surgical History: none Pertinent Family History: none Social History: Reports: alcohol use Reviewed Nursing Documentation: PMH: Agreed, PSxH: Agreed Nursing Documentation-PMH Past Medical History: No History, Except For Hx Cardiac Problems: No Hx Cancer: No Hx Gastrointestinal Problems: Yes - pancreatitis History Of Psychiatric Problem: Yes - etoh abuse Hx Neurological Problems: No Review of Systems All Other Systems: negative except mentioned in HPI Physical Exam Vital Signs Date Time Temp Pulse Resp B/P (MAP) Pulse Ox O2 Delivery O2 Flow Rate FiO2 04/26/17 12:47 97.9 106 20 119/71 98 Room Air Sp02 EP Interpretation: reviewed, normal General Appearance: alert, GCS 15, mild distress, Chronically Ill Head: normocephalic, atraumatic Eyes: bilateral eye normal inspection, bilateral eye PERRL ENT: hearing grossly normal, no angioedema, normal voice Neck: full range of motion, supple/symm/no masses Respiratory: lungs clear, normal breath sounds, no respiratory distress, no wheezing, speaking full sentences Cardiovascular #1: regular rate, rhythm, no edema, normal capillary refill Gastrointestinal: normal bowel sounds, soft, tenderness - Epigastric ttp to deep palpation, no caput medusae, no jaundice or distention ntoed. Rectal: deferred Musculoskeletal: back normal, gait/station normal, normal range of motion, non- tender Neurologic: alert, oriented x3, responsive, motor strength/tone normal, sensory intact, speech normal, grossly normal Skin: normal color, no rash, warm/dry, well hydrated, other - no jaundice Medical Decision Making PA Attestation Dr. rodney is my supervising Physician whom patient management has been discussed with. Diagnostic Impression: Primary Impression: Pancreatitis, acute Qualified Codes: K85.20 - Alcohol induced acute pancreatitis without necrosis or infection ER Course 61-year-old male presents to the emergency department complaining of 10 on a 10 in severity epigastric and right upper quadrant abdominal pain x2 days with associated nausea and vomiting. Patient also reports that he spat up some blood -tinged due to. Patient denies bright red blood in his vomit. Patient denies black tarry stools or blood in the stool. Patient reports history of pancreatitis and alcohol use he states that he had alcohol use yesterday. Patient denies fevers, chills. He denies dizziness, syncope, chest pain, palpitations or rashes. He denies recent travel or ill contacts he denies constipation or diarrhea. Patient states that he feels that his abdomen is very bloated or distended. Patient denies appreciable abdominal tenderness. Ddx considered but are not limited to Diverticulitis, acute appy, diarrhea,UC, PUD, GE, pancreatitis, gallstone Vital signs: are WNL, pt. is afebrile H&PE are most consistent with Alcoholic Pancreatitis. ORDERS: -CBC, CMP: no leukocytosis, WNL Hb/HCT , Elevated LFT's, normal cr. - Elevated Lipase: 690, Amylase: 159 -Serum ETOH: 360 -Troponin: 0.00 -PT/PTT : WNL -UA: Unremarkable - EKG: - CT Abdomen & Pelvis with contrast: Fatty liver, hiatal and small umbillical hernia, previous surgical clips, and diverticulosis of the colon Per official radiology report- Please see report for specific details. ED INTERVENTIONS: -IV access -Pepcid IV -- 1000NS, Zantac 50mg, and ofran 4mg. DISPOSITION: at this time pt. will be admitted to Dr. Kinsey for Acute alcoholic pancreatitis. Dr. Kinsey agreed to admit the pt. and to continue pt. care management. Labs Test 04/27/17 05:15 04/28/17 08:00 White Blood Count 5.6 K/UL (4.8-10.8) 5.5 K/UL (4.8-10.8) Red Blood Count 3.92 M/UL (4.70-6.10) 3.99 M/UL (4.70-6.10) Hemoglobin 14.2 G/DL (14.2-18.0) 14.4 G/DL (14.2-18.0) Hematocrit 44.5 % (42.0-52.0) 44.8 % (42.0-52.0) Mean Corpuscular Volume 114 FL (80-99) 112 FL (80-99) Mean Corpuscular Hemoglobin 36.1 PG (27.0-31.0) 36.2 PG (27.0-31.0) Mean Corpuscular Hemoglobin Concent 31.8 G/DL (32.0-36.0) 32.2 G/DL (32.0-36.0) Red Cell Distribution Width 10.8 % (11.6-14.8) 10.7 % (11.6-14.8) Platelet Count 137 K/UL (150-450) 122 K/UL (150-450) Mean Platelet Volume 6.7 FL (6.5-10.1) 7.3 FL (6.5-10.1) Neutrophils (%) (Auto) % (45.0-75.0) % (45.0-75.0) Lymphocytes (%) (Auto) % (20.0-45.0) % (20.0-45.0) Monocytes (%) (Auto) % (1.0-10.0) % (1.0-10.0) Eosinophils (%) (Auto) % (0.0-3.0) % (0.0-3.0) Basophils (%) (Auto) % (0.0-2.0) % (0.0-2.0) Differential Total Cells Counted 100 100 Neutrophils % (Manual) 68 % (45-75) 75 % (45-75) Lymphocytes % (Manual) 22 % (20-45) 20 % (20-45) Monocytes % (Manual) 8 % (1-10) 3 % (1-10) Eosinophils % (Manual) 2 % (0-3) 0 % (0-3) Basophils % (Manual) 0 % (0-2) 1 % (0-2) Band Neutrophils 0 % (0-8) 1 % (0-8) Platelet Estimate Decreased Decreased Platelet Morphology Normal Normal Anisocytosis 1+ Macrocytosis 2+ Sodium Level 144 MMOL/L (136-145) 137 MMOL/L (136-145) Potassium Level 4.6 MMOL/L (3.5-5.1) 4.0 MMOL/L (3.5-5.1) Chloride Level 110 MMOL/L (98-107) 104 MMOL/L (98-107) Carbon Dioxide Level 22 MMOL/L (21-32) 25 MMOL/L (21-32) Anion Gap 12 mmol/L (5-15) 8 mmol/L (5-15) Blood Urea Nitrogen 9 mg/dL (7-18) 10 mg/dL (7-18) Creatinine 0.9 MG/DL (0.55-1.30) 1.0 MG/DL (0.55-1.30) Estimat Glomerular Filtration Rate > 60 mL/min (>60) > 60 mL/min (>60) Glucose Level 71 MG/DL (74-106) 152 MG/DL (74-106) Calcium Level 8.6 MG/DL (8.5-10.1) 8.7 MG/DL (8.5-10.1) Phosphorus Level 3.5 MG/DL (2.5-4.9) Magnesium Level 2.7 MG/DL (1.8-2.4) Total Bilirubin 0.5 MG/DL (0.2-1.0) Aspartate Amino Transf (AST/SGOT) 80 U/L (15-37) Alanine Aminotransferase (ALT/SGPT) 157 U/L (12-78) Alkaline Phosphatase 47 U/L (46-116) Total Protein 7.5 G/DL (6.4-8.2) Albumin 3.7 G/DL (3.4-5.0) Globulin 3.8 g/dL Albumin/Globulin Ratio 1.0 (1.0-2.7) Amylase Level 110 U/L (25-115) Lipase 351 U/L (73-393) EKG Diagnostic Results EP Interpretation: Dr. Herzog Rate: normal - 86 BPM Rhythm: NSR ST Segments: no acute changes ASA given to the pt in ED: No PA Scribe Text This EKG interpretation of Dr. Herzog was scribed by ALISE Mclaughlin Last Vital Signs Date Time Temp Pulse Resp B/P (MAP) Pulse Ox O2 Delivery O2 Flow Rate FiO2 04/28/17 11:53 97.9 69 19 122/71 97 Room Air Disposition: ADMITTED INPATIENT Condition: Serious Scripts No Active Prescriptions or Reported Meds Referrals: NOT CHOSEN IPA/MD,REFERRING (PCP) Patient Instructions: Acute Pancreatitis, [id number] Carolynn Mclaughlin Apr 30, 2017 00:15
--- NOTE | 2017-05-07 16:28 | Cardiology Report ---
APPROVED REPORT EKG Measurement Heart [id number] Normal sinus rhythm Low voltage QRS Septal infarct, age undetermined Abnormal ECG
== END 2017-04-28 12:00 | disposition home or self-care (01) | DRG 440 ==
LOC: EMR 14:43 → 3E 15:31 → EDBEDREQ 15:56 → 3E 17:01
DX: K85.20 Alcohol induced acute pancreatitis without necrosis or infection (principal); K76.0 Fatty (change of) liver, not elsewhere classified; B19.20 Unspecified viral hepatitis C without hepatic coma; F10.10 Alcohol abuse, uncomplicated; Y90.8 Blood alcohol level of 240 mg/100 ml or more
CPT/HCPCS: 36415; 74177; 76700; 80048; 80053; 80329; 81003; 82150; 83690; 83735; 84100; 84484; 85007; 85025; 85610; 85730; 86705; 86709; 86803; 87340; 93005; 99285; J2405

== ENCOUNTER 2018-03-11 06:05 | Emergency (ER) | payer OTHER ==
[~2018-03-11] VITALS: Ht 172.7 cm; Wt 77.1 kg
[2018-03-11] MEDS ORDERED: Morphine Sulfate 4mg/ml Inj (IV USE ONLY) IVP ONE (06:15)
[2018-03-11 06:31] VITALS: BP 143/100
[2018-03-11 06:32] LABS: BASOPHILS % (AUTO) 1.2 % (0.0-2.0); EOSINOPHILS % (AUTO) 1.8 % (0.0-3.0); HEMATOCRIT 48.6 % (42.0-52.0); HEMOGLOBIN 17.2 G/DL (14.2-18.0); LYMPHOCYTES % (AUTO) 15.8 % (20.0-45.0); MEAN CORPUSCULAR VOLUME 105 FL (80-99); NEUTROPHILS % (AUTO) 69.2 % (45.0-75.0); PLATELET COUNT 164 K/UL (150-450); RED BLOOD COUNT 4.65 M/UL (4.70-6.10); RED CELL DISTRIBUTION WIDTH 10.6 % (11.6-14.8); WHITE BLOOD COUNT 6.1 K/UL (4.8-10.8)
[2018-03-11 06:42] LABS: ANION GAP 9 mmol/L (5-15); BLOOD UREA NITROGEN 20 mg/dL (7-18); CARBON DIOXIDE 27 MMOL/L (21-32); CHLORIDE 104 MMOL/L (98-107); POTASSIUM 5.2 MMOL/L (3.5-5.1); SODIUM 140 MMOL/L (136-145)
[2018-03-11 06:46] LABS: ALANINE AMINOTRANSFERASE 136 U/L (12-78); ALBUMIN 4.2 G/DL (3.4-5.0); ALBUMIN/GLOBULIN RATIO 0.8 (1.0-2.7); ALKALINE PHOSPHATASE 59 U/L (46-116); ASPARTATE AMINO TRANSFERASE 110 U/L (15-37); BILIRUBIN,TOTAL 0.6 MG/DL (0.2-1.0)
[2018-03-11] MEDS ORDERED: HYDROmorphone 1mg/ml Carpuject IVP ONE (07:15)
[2018-03-11] MEDS ORDERED: LORazepam Inj 2mg/ml 1ml IV ONE (07:15)
[2018-03-11] MEDS ORDERED: ZOFRAN4 M3 ORAL (09:19)
[2018-03-11] MEDS ORDERED: LORAZEPAM1 MG ORAL (09:19)
[2018-03-11 09:30] VITALS: BP 126/92
--- NOTE | 2018-03-11 14:12 | Emergency Room Report ---
History of Present Illness General Chief Complaint: Abdominal Pain Source: Patient Present Illness Allergies: Coded Allergies: No Known Allergies (Unverified , 06/01/16) Nursing Documentation-PMH Hx Cardiac Problems: No Hx Cancer: No Hx Gastrointestinal Problems: Yes - Pancreatitis Hx Neurological Problems: No Physical Exam Vital Signs Date Time Temp Pulse Resp B/P (MAP) Pulse Ox O2 Delivery O2 Flow Rate FiO2 03/11/18 05:56 97.9 100 15 143/100 98 97.9 Medical Decision Making Diagnostic Impression: Primary Impression: Pancreatitis, acute ER Course Please refer to the initial note for the history exam and presentation Patient at this time had continued discomfort and required repeat pain medication dosing Blood work reveals elevated lipase level there is also some mild elevation of the liver function test Patient does report significant alcohol intake on repeat history After further observation, hydration and pain control Patient has done better At this time feels that he would like to go home and attempt outpatient trial Patient will be given prescriptions for home and requires close follow-up Labs Test 03/11/18 06:10 White Blood Count 6.1 K/UL (4.8-10.8) Red Blood Count 4.65 M/UL (4.70-6.10) Hemoglobin 17.2 G/DL (14.2-18.0) Hematocrit 48.6 % (42.0-52.0) Mean Corpuscular Volume 105 FL (80-99) Mean Corpuscular Hemoglobin 37.0 PG (27.0-31.0) Mean Corpuscular Hemoglobin Concent 35.4 G/DL (32.0-36.0) Red Cell Distribution Width 10.6 % (11.6-14.8) Platelet Count 164 K/UL (150-450) Mean Platelet Volume 8.1 FL (6.5-10.1) Neutrophils (%) (Auto) 69.2 % (45.0-75.0) Lymphocytes (%) (Auto) 15.8 % (20.0-45.0) Monocytes (%) (Auto) 12.0 % (1.0-10.0) Eosinophils (%) (Auto) 1.8 % (0.0-3.0) Basophils (%) (Auto) 1.2 % (0.0-2.0) Sodium Level 140 MMOL/L (136-145) Potassium Level 5.2 MMOL/L (3.5-5.1) Chloride Level 104 MMOL/L (98-107) Carbon Dioxide Level 27 MMOL/L (21-32) Anion Gap 9 mmol/L (5-15) Blood Urea Nitrogen 20 mg/dL (7-18) Creatinine 1.0 MG/DL (0.55-1.30) Estimat Glomerular Filtration Rate > 60 mL/min (>60) Glucose Level 117 MG/DL (74-106) Calcium Level 10.0 MG/DL (8.5-10.1) Total Bilirubin 0.6 MG/DL (0.2-1.0) Aspartate Amino Transf (AST/SGOT) 110 U/L (15-37) Alanine Aminotransferase (ALT/SGPT) 136 U/L (12-78) Alkaline Phosphatase 59 U/L (46-116) Total Protein 9.4 G/DL (6.4-8.2) Albumin 4.2 G/DL (3.4-5.0) Globulin 5.2 g/dL Albumin/Globulin Ratio 0.8 (1.0-2.7) Lipase 666 U/L (73-393) Serum Alcohol < 3 mg/dL Last Vital Signs Date Time Temp Pulse Resp B/P (MAP) Pulse Ox O2 Delivery O2 Flow Rate FiO2 03/11/18 09:30 98.2 75 15 126/92 97 98.2 Status: improved Disposition: HOME, SELF-CARE Condition: Improved Scripts Ondansetron* (ZOFRAN*) 4 Mg Tablet 4 MG ORAL Q8HR PRN for Nausea & Vomiting, #12 TAB Prov: Darrin Atwood DO 03/11/18 Lorazepam* (LORAZEPAM*) 1 Mg Tablet 1 MG ORAL BID, #8 TAB Prov: Darrin Atwood DO 03/11/18 Referrals: NOT CHOSEN IPA/MD,REFERRING (PCP) Patient Instructions: Acute Pancreatitis, [id number], Abdominal Pain, Adult Additional Instructions: Patient is provided with the discharge instructions notified to follow up with primary doctor in the next 2-3 days otherwise return to the er with any worsening symptoms. Please note that this report is being documented using [employer] technology. This can lead to erroneous entry secondary to incorrect interpretation by the dictating instrument. Darrin Atwood DO Mar 11, 2018 14:12
--- NOTE | 2018-03-11 21:09 | Emergency Room Report ---
History of Present Illness General Chief Complaint: Abdominal Pain Source: Patient Present Illness HPI 62-year-old male presents ED for evaluation of abdominal pain and vomiting. Started last night. Brought in by EMS. Patient states its his "pancreatitis acting up again". Patient states he ate a fatty steak last night. He also drank a sixpack of beer. Patient states he does drink every day. Pain is sharp , epigastric, 8 out of 10, nonradiating. Denies chest pain or shortness of breath. No other aggravating or relieving factors. No other associated symptoms Allergies: Coded Allergies: No Known Allergies (Unverified , 06/01/16) Patient History Past Medical History: other - pancreatitis Past Surgical History: none Pertinent Family History: none Social History: Reports: alcohol use; Denies: smoking, drug use Immunizations: UTD Reviewed Nursing Documentation: PMH: Agreed; PSxH: Agreed Nursing Documentation-PMH Hx Cardiac Problems: No Hx Cancer: No Hx Gastrointestinal Problems: Yes - Pancreatitis Hx Neurological Problems: No Review of Systems All Other Systems: negative except mentioned in HPI Physical Exam Vital Signs Date Time Temp Pulse Resp B/P (MAP) Pulse Ox O2 Delivery O2 Flow Rate FiO2 03/11/18 05:56 97.9 100 15 143/100 98 97.9 Sp02 EP Interpretation: reviewed, normal General Appearance: no apparent distress, alert, GCS 15, non-toxic Head: normocephalic, atraumatic Eyes: bilateral eye normal inspection, bilateral eye PERRL ENT: hearing grossly normal, normal pharynx, no angioedema, normal voice Neck: full range of motion, supple/symm/no masses Respiratory: chest non-tender, lungs clear, normal breath sounds, speaking full sentences Cardiovascular #1: regular rate, rhythm, no edema Cardiovascular #2: 2+ carotid (R), 2+ carotid (L), 2+ radial (R), 2+ radial (L) , 2+ dorsalis pedis (R), 2+ dorsalis pedis (L) Gastrointestinal: normal bowel sounds, soft, non-distended, no guarding, no rebound, tenderness - epigastric Rectal: deferred Genitourinary: normal inspection, no CVA tenderness Musculoskeletal: back normal, gait/station normal, normal range of motion, non- tender Neurologic: alert, oriented x3, responsive, motor strength/tone normal, sensory intact, speech normal Psychiatric: judgement/insight normal, memory normal, mood/affect normal, no suicidal/homicidal ideation Reflexes: 3+ bicep (R), 3+ bicep (L), 3+ tricep (R), 3+ tricep (L), 3+ knee (R) , 3+ knee (L) Skin: normal color, no rash, warm/dry, well hydrated Lymphatic: no adenopathy Medical Decision Making Diagnostic Impression: Primary Impression: Pancreatitis, acute Last Vital Signs Date Time Temp Pulse Resp B/P (MAP) Pulse Ox O2 Delivery O2 Flow Rate FiO2 03/11/18 09:30 98.2 75 15 126/92 97 98.2 Condition: Improved Scripts Ondansetron* (ZOFRAN*) 4 Mg Tablet 4 MG ORAL Q8HR PRN for Nausea & Vomiting, #12 TAB Prov: Darrin Atwood DO 03/11/18 Lorazepam* (LORAZEPAM*) 1 Mg Tablet 1 MG ORAL BID, #8 TAB Prov: Darrin Atwood DO 03/11/18 Referrals: NOT CHOSEN IPA/MD,REFERRING (PCP) Patient Instructions: Acute Pancreatitis, [id number], Abdominal Pain, Adult Additional Instructions: Patient is provided with the discharge instructions notified to follow up with primary doctor in the next 2-3 days otherwise return to the er with any worsening symptoms. Please note that this report is being documented using [employer] technology. This can lead to erroneous entry secondary to incorrect interpretation by the dictating instrument. Roberto Herzog MD Mar 11, 2018 21:09
== END 2018-03-11 09:30 | disposition home or self-care (01) ==
LOC: EDBD 06:05 → EMR 06:35
DX: K85.90 Acute pancreatitis without necrosis or infection, unspecified (principal); Z72.89 Other problems related to lifestyle
CPT/HCPCS: 36415; 80053; 83690; 85025; 96361; 96374; 96375; 96376; 99284; G0480; J1170; J2270; J2405; S0028; 80329

== ENCOUNTER 2018-07-02 16:16 | Inpatient (IN) | payer OTHER ==
[~2018-07-02] VITALS: Ht 172.7 cm; Wt 72.1 kg
[~2018-07-02 16:16] MED LIST: LORAZEPAM1 MG ORAL; ZOFRAN4 M3 ORAL
--- NOTE | 2018-07-02 16:25 | Emergency Room Report ---
History of Present Illness Present Illness HPI Patient is a 62-year-old male who presented after increased abdominal pain. Patient gradual onset of symptoms. Patient was noted to have increased discomfort to his lower abdomen.He reports being an alcoholic. Patient states that he had been drinking earlier in the day. He had prior episodes of pancreatitis in the past. He had previous exploratory surgery on his abdomen. He was noted to have some prior history of hernia. Allergies: Coded Allergies: No Known Allergies (Unverified , 06/01/16) Patient History Past Medical History: see triage record Reviewed Nursing Documentation: PMH: Agreed; PSxH: Agreed Nursing Documentation-PMH Hx Cardiac Problems: No Hx Cancer: No Hx Gastrointestinal Problems: Yes - pancreatitis Hx Neurological Problems: No Review of Systems All Other Systems: negative except mentioned in HPI Physical Exam Sp02 EP Interpretation: reviewed, normal General Appearance: normal inspection, well appearing, alert, GCS 15, Chronically Ill Head: atraumatic ENT: normal ENT inspection, hearing grossly normal, normal voice Neck: normal inspection, full range of motion, supple, no bony tend Respiratory: normal inspection, lungs clear, normal breath sounds, no respiratory distress, no retraction, no wheezing Cardiovascular #1: regular rate, rhythm, no edema Gastrointestinal: normal inspection, normal bowel sounds, non tender, soft, no guarding, no hernia, tenderness, hernia Genitourinary: no CVA tenderness Musculoskeletal: normal inspection, back normal, normal range of motion Neurologic: normal inspection, alert, oriented x3, responsive, 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 .Patient presented for abdominal pain. Differential diagnoses included ischemic bowel, appendicitis, perforated viscus, abdominal aortic aneurysm, inferior myocardial infarction, viral gastroenteritis. Because of complexity of patient's case laboratory testing and imaging studies were ordered.Patient was noted to have prior history of pancreatitis. Patient is given IV antiemetics as well as IV pain medications. Patient denies any current hematemesis but states he has had some episodes in the past week. He had previous admission for similar symptoms. Patient was noted to have some elevations of her latest liver function tests and prior history of abdominal surgeries. Dr. Genaro Siddiqi was contacted for Dr. Ordoñez for inpatient management due to prior admission. Labs Test 07/02/18 16:45 07/02/18 16:55 Urine Color Pale yellow Urine Appearance Clear Urine pH 6.5 (4.5-8.0) Urine Specific [place] 1.005 (1.005-1.035) Urine Protein Negative (NEGATIVE) Urine Glucose (UA) Negative (NEGATIVE) Urine Ketones Negative (NEGATIVE) Urine Blood Negative (NEGATIVE) Urine Nitrite Negative (NEGATIVE) Urine Bilirubin Negative (NEGATIVE) Urine Urobilinogen Normal MG/DL (0.0-1.0) Urine Leukocyte Esterase Negative (NEGATIVE) White Blood Count 7.0 K/UL (4.8-10.8) Red Blood Count 4.20 M/UL (4.70-6.10) Hemoglobin 15.5 G/DL (14.2-18.0) Hematocrit 44.1 % (42.0-52.0) Mean Corpuscular Volume 105 FL (80-99) Mean Corpuscular Hemoglobin 36.8 PG (27.0-31.0) Mean Corpuscular Hemoglobin Concent 35.1 G/DL (32.0-36.0) Red Cell Distribution Width 10.4 % (11.6-14.8) Platelet Count 146 K/UL (150-450) Mean Platelet Volume 6.8 FL (6.5-10.1) Neutrophils (%) (Auto) 61.7 % (45.0-75.0) Lymphocytes (%) (Auto) 24.1 % (20.0-45.0) Monocytes (%) (Auto) 11.4 % (1.0-10.0) Eosinophils (%) (Auto) 1.2 % (0.0-3.0) Basophils (%) (Auto) 1.5 % (0.0-2.0) Prothrombin Time 10.2 SEC (9.30-11.50) Prothromb Time International Ratio 1.0 (0.9-1.1) Activated Partial Thromboplast Time 31 SEC (23-33) Sodium Level 133 MMOL/L (136-145) Potassium Level 3.9 MMOL/L (3.5-5.1) Chloride Level 99 MMOL/L (98-107) Carbon Dioxide Level 20 MMOL/L (21-32) Anion Gap 14 mmol/L (5-15) Blood Urea Nitrogen 7 mg/dL (7-18) Creatinine 0.8 MG/DL (0.55-1.30) Estimat Glomerular Filtration Rate > 60 mL/min (>60) Glucose Level 83 MG/DL (74-106) Calcium Level 9.1 MG/DL (8.5-10.1) Total Bilirubin 0.4 MG/DL (0.2-1.0) Aspartate Amino Transf (AST/SGOT) 446 U/L (15-37) Alanine Aminotransferase (ALT/SGPT) 532 U/L (12-78) Alkaline Phosphatase 60 U/L (46-116) Troponin I 0.000 ng/mL (0.000-0.056) Total Protein 9.3 G/DL (6.4-8.2) Albumin 4.2 G/DL (3.4-5.0) Globulin 5.1 g/dL Albumin/Globulin Ratio 0.8 (1.0-2.7) Lipase 687 U/L (73-393) EKG Diagnostic Results Rate: normal - 100 Rhythm: NSR ST Segments: no acute changes Rhythm Strip Diag. Results EP Interpretation: yes Rhythm: NSR, no PVC's, no ectopy Status: improved Disposition: ADMITTED INPATIENT Condition: Stable Scripts No Active Prescriptions or Reported Meds Venkatesh Easley MD Jul 02, 2018 16:25
[2018-07-02 16:34] VITALS: BP 170/100
--- NOTE | 2018-07-02 16:34 | NUR ---
ED Nurse Note: PT CAME TO ED FROM HOME C/O ABDOMINAL PAIN 03/28. PT KEEPS GRABBING UPPER AND LOWER RIGHT SIDE ABDOMNIAL QUADRANT.
[2018-07-02] MEDS ORDERED: Pantoprazole Inj IV ONE (16:45)
[2018-07-02] MEDS ORDERED: Morphine Sulfate 4mg/ml Inj (IV USE ONLY) IVP ONE ×2 (16:45→18:15)
[2018-07-02 17:13] LABS: APPEARANCE,URINE CLEAR; BILIRUBIN, URINE NEGATIVE (NEGATIVE); COLOR,URINE PALE YELLOW; GLUCOSE, URINE (UA) NEGATIVE (NEGATIVE); KETONES,URINE NEGATIVE (NEGATIVE); LEUKOCYTE ESTERASE ,URINE NEGATIVE (NEGATIVE); NITRITE,URINE NEGATIVE (NEGATIVE); PH,URINE 6.5 (4.5-8.0); PROTEIN,URINE NEGATIVE (NEGATIVE); UROBILINOGEN,URINE NORMAL MG/DL (0.0-1.0)
[2018-07-02 17:25] LABS: BASOPHILS % (AUTO) 1.5 % (0.0-2.0); EOSINOPHILS % (AUTO) 1.2 % (0.0-3.0); HEMATOCRIT 44.1 % (42.0-52.0); HEMOGLOBIN 15.5 G/DL (14.2-18.0); LYMPHOCYTES % (AUTO) 24.1 % (20.0-45.0); MEAN CORPUSCULAR VOLUME 105 FL (80-99); MONOCYTES % (AUTO) 11.4 % (1.0-10.0); NEUTROPHILS % (AUTO) 61.7 % (45.0-75.0); PLATELET COUNT 146 K/UL (150-450); RED CELL DISTRIBUTION WIDTH 10.4 % (11.6-14.8)
[2018-07-02 17:27] LABS: ANION GAP 14 mmol/L (5-15); BLOOD UREA NITROGEN 7 mg/dL (7-18); CALCIUM 9.1 MG/DL (8.5-10.1); CARBON DIOXIDE 20 MMOL/L (21-32); CHLORIDE 99 MMOL/L (98-107); CREATININE 0.8 MG/DL (0.55-1.30); POTASSIUM 3.9 MMOL/L (3.5-5.1); SODIUM 133 MMOL/L (136-145)
[2018-07-02 17:30] LABS: ALANINE AMINOTRANSFERASE 532 U/L (12-78); ALBUMIN 4.2 G/DL (3.4-5.0); ALBUMIN/GLOBULIN RATIO 0.8 (1.0-2.7); ALKALINE PHOSPHATASE 60 U/L (46-116); ASPARTATE AMINO TRANSFERASE 446 U/L (15-37); BILIRUBIN,TOTAL 0.4 MG/DL (0.2-1.0)
[2018-07-02 18:21] VITALS: BP 170/100
[2018-07-02 18:30] VITALS: BP 118/74
--- NOTE | 2018-07-02 19:23 | NUR ---
HAND-OFF: Report received from Cathy HERRERA, also aske to call up to give report for patient, accepted.
--- NOTE | 2018-07-02 19:36 | NUR ---
ED Nurse Note: Patient resting comfofrtably with nio complaints.
--- NOTE | 2018-07-02 20:48 | NUR ---
ED Nurse Note: patient had one foot on the floor off the edge of the gurney. Asked patient to sit all the way up on bed and helped him to find a comfortable position.
--- NOTE | 2018-07-02 21:30 | NUR ---
ED Nurse Note: Patient processed for admission, called in report to sanya, patient is a&OX4, ambulatory with steady gait. patient accompanied by undergraduate internship to floor IV saline locked.
[2018-07-02 21:39] VITALS: BP 140/99
--- NOTE | 2018-07-02 21:39 | NUR ---
NURSE NOTES: Patient received from E.R Patient vss, afebrile . no sob/ no n/v noted .Patient is a 62 -yrs old male c/o increased abdominal pain . pain gradual onset of symptoms. patient was noted to have increased discomfort to his lower abdomen .morphine sulfate 4 mg ivp given ER. Patient re assess with good relief . he report being an alcoholic .patient states that . he had prior episode of pancreatitis in the past. he had previous exploratory surgery on his abdomen.he was noted to have some prior history hernia. LFA g#20 H/L Patent and intact . patient personal belongings checked and signed .Family notified patient location .patient keep NPO as MD ordered . scds on bilateral lower ext.. Patient verbalized he's understanding. call light within reach bed in low position at all times. will continue to monitor
[2018-07-02] MEDS: Morphine Sulfate 4mg/ml Inj (IV USE ONLY) IVP PRN (21:55)
[2018-07-02] MEDS: Folic Acid 1 MG, Magnesium Sulfate 2,000 MG, Multivitamin - 12 Injection 10 ML in Sodiu... IV SCH (22:59)
[2018-07-02] MEDS: Thiamine 100mg in D5W 55ml IVPB SCH (23:00)
[2018-07-03] VITALS: BP 136/88
[2018-07-03] MEDS: Morphine Sulfate 4mg/ml Inj (IV USE ONLY) IVP PRN ×2 (03:26→08:41)
[2018-07-03 04:00] VITALS: BP 128/84
[2018-07-03 07:16] LABS: BASOPHILS % (AUTO) 0.8 % (0.0-2.0); HEMATOCRIT 41.8 % (42.0-52.0); HEMOGLOBIN 14.7 G/DL (14.2-18.0); LYMPHOCYTES % (AUTO) 15.5 % (20.0-45.0); MEAN CORPUSCULAR VOLUME 105 FL (80-99); MONOCYTES % (AUTO) 10.4 % (1.0-10.0); NEUTROPHILS % (AUTO) 70.2 % (45.0-75.0); PLATELET COUNT 131 K/UL (150-450); RED BLOOD COUNT 3.99 M/UL (4.70-6.10); RED CELL DISTRIBUTION WIDTH 10.9 % (11.6-14.8); WHITE BLOOD COUNT 5.3 K/UL (4.8-10.8)
[2018-07-03 07:25] LABS: ANION GAP 12 mmol/L (5-15); BLOOD UREA NITROGEN 9 mg/dL (7-18); CALCIUM 8.6 MG/DL (8.5-10.1); CARBON DIOXIDE 22 MMOL/L (21-32); CHLORIDE 108 MMOL/L (98-107); CREATININE 0.8 MG/DL (0.55-1.30); POTASSIUM 4.3 MMOL/L (3.5-5.1); SODIUM 142 MMOL/L (136-145)
--- NOTE | 2018-07-03 07:40 | NUR ---
HAND-OFF: Report given to rosa m NewmanPatient in stable conditions.
--- NOTE | 2018-07-03 07:53 | NUR ---
Pt in bed a/o x 4 c/o in no acute distress. Dr. Siddiqi came in this AM to see pt. CIWA score 4. Patent IV to left AC running meds as ordered. Pt on NPO status due to abd us ordered this AM. Pt left in bed in low position, call light within reach. Discussed with patient plan of care, safety, and withdrawal symptoms to report.
--- NOTE | 2018-07-03 07:58 | History and Physical ---
History of Present Illness General Date patient seen: Jul 03, 2018 Time patient seen: 07:34 Reason for Hospitalization: Abdominal Pain Present Illness HPI 62 yo male with h/o alcohol abuse presents with complaints of severe abdominal pain with nausea/vomiting. Patient states he drinks alcohol every day, drinks about a gallon a day. Denies every withdrawing from alcohol because he drinks every day and has not quit. States he drinks "gallons of beer every day". States he lives at home with his Bonnie Crenshaw. Denies knowing of any medical conditions in the past, denies known cirrhosis, denies psych illness. Admits to smoking 1ppd, denies drug use. Patient states he has mid epigastric abdominal pain which has improved a bit now, states his nausea currently has improved. Denies fevers or chills. Denies diarrhea/constipation. social hx reviewed: drinks "gallons" of beer per day, smoke 1ppd, denies drug use past fam hx reviewed: denies any sig past fam hx that he is aware of code status reviewed: FULL CODE Allergies: Coded Allergies: No Known Allergies (Unverified , 06/01/16) Medication History No Active Prescriptions or Reported Meds Patient History History Provided By: Patient, Medical Record Healthcare decision maker Resuscitation status Full Code Advanced Directive on File Family History Family History: Patient reports no known family medical history. Review of Systems All Other Systems: negative except mentioned in HPI ROS Narrative 14 point ROS reviewed and negative except dictated as above HPI. Physical Exam General Appearance: WD/WN, alert, mild distress Lines, tubes and drains: peripheral HEENT: normocephalic, atraumatic, anicteric, PERRL, other - dry mucous membrane Neck: non-tender, normal alignment Respiratory/Chest: chest wall non-tender, lungs clear, normal breath sounds, no respiratory distress, no accessory muscle use Cardiovascular/Chest: normal peripheral pulses, normal rate, regular rhythm Abdomen: normal bowel sounds, soft, no organomegaly, no mass, other - mild epigastric ttp Extremities: normal range of motion, non-tender, normal inspection, no calf tenderness, normal capillary refill, non-pitting Skin Exam: normal pigmentation, warm/dry Neurologic: no motor/sensory deficits, alert, oriented x 3, responsive, normal mood/affect Last 24 Hour Vital Signs Date Time Temp Pulse Resp B/P (MAP) Pulse Ox O2 Delivery O2 Flow Rate FiO2 1/15/19 04:00 98.5 77 20 128/84 (99) 98 07/03/18 03:56 97.8 07/03/18 00:00 97.8 76 19 136/88 (104) 97 07/02/18 21:39 Room Air 07/02/18 21:39 97.6 79 20 140/99 (113) 97 07/02/18 21:30 98.2 77 17 112/84 96 Room Air 07/02/18 18:30 92 19 118/74 97 Room Air 07/02/18 16:34 66 18 Room Air 07/02/18 16:34 98.1 18 170/100 98 Room Air 07/02/18 16:24 98.1 66 18 170/100 98 Room Air Intake and Output 07/02/18 07/03/18 19:00 07:00 Intake Total 931 ml Output Total 280 ml Balance 651 ml Intake IV Total 931 ml Output Urine Total 280 ml # Voids 2 3 # Bowel Movements 1 Laboratory Tests Test 07/02/18 16:45 07/02/18 16:55 07/03/18 05:30 Urine Color Pale yellow Urine Appearance Clear Urine pH 6.5 (4.5-8.0) Urine Specific Rock 1.005 (1.005-1.035) Urine Protein Negative (NEGATIVE) Urine Glucose (UA) Negative (NEGATIVE) Urine Ketones Negative (NEGATIVE) Urine Blood Negative (NEGATIVE) Urine Nitrite Negative (NEGATIVE) Urine Bilirubin Negative (NEGATIVE) Urine Urobilinogen Normal MG/DL (0.0-1.0) Urine Leukocyte Esterase Negative (NEGATIVE) White Blood Count 7.0 K/UL (4.8-10.8) 5.3 K/UL (4.8-10.8) Red Blood Count 4.20 M/UL (4.70-6.10) L 3.99 M/UL (4.70-6.10) L Hemoglobin 15.5 G/DL (14.2-18.0) 14.7 G/DL (14.2-18.0) Hematocrit 44.1 % (42.0-52.0) 41.8 % (42.0-52.0) L Mean Corpuscular Volume 105 FL (80-99) H 105 FL (80-99) H Mean Corpuscular Hemoglobin 36.8 PG (27.0-31.0) H 36.7 PG (27.0-31.0) H Mean Corpuscular Hemoglobin Concent 35.1 G/DL (32.0-36.0) 35.1 G/DL (32.0-36.0) Red Cell Distribution Width 10.4 % (11.6-14.8) L 10.9 % (11.6-14.8) L Platelet Count 146 K/UL (150-450) L 131 K/UL (150-450) L Mean Platelet Volume 6.8 FL (6.5-10.1) 6.7 FL (6.5-10.1) Neutrophils (%) (Auto) 61.7 % (45.0-75.0) 70.2 % (45.0-75.0) Lymphocytes (%) (Auto) 24.1 % (20.0-45.0) 15.5 % (20.0-45.0) L Monocytes (%) (Auto) 11.4 % (1.0-10.0) H 10.4 % (1.0-10.0) H Eosinophils (%) (Auto) 1.2 % (0.0-3.0) 3.0 % (0.0-3.0) Basophils (%) (Auto) 1.5 % (0.0-2.0) 0.8 % (0.0-2.0) Prothrombin Time 10.2 SEC (9.30-11.50) Prothromb Time International Ratio 1.0 (0.9-1.1) Activated Partial Thromboplast Time 31 SEC (23-33) Sodium Level 133 MMOL/L (136-145) L 142 MMOL/L (136-145) Potassium Level 3.9 MMOL/L (3.5-5.1) 4.3 MMOL/L (3.5-5.1) Chloride Level 99 MMOL/L (98-107) 108 MMOL/L (98-107) H Carbon Dioxide Level 20 MMOL/L (21-32) L 22 MMOL/L (21-32) Anion Gap 14 mmol/L (5-15) 12 mmol/L (5-15) Blood Urea Nitrogen 7 mg/dL (7-18) 9 mg/dL (7-18) Creatinine 0.8 MG/DL (0.55-1.30) 0.8 MG/DL (0.55-1.30) Estimat Glomerular Filtration Rate > 60 mL/min (>60) > 60 mL/min (>60) Glucose Level 83 MG/DL (74-106) 69 MG/DL (74-106) L Calcium Level 9.1 MG/DL (8.5-10.1) 8.6 MG/DL (8.5-10.1) Magnesium Level 2.2 MG/DL (1.8-2.4) Total Bilirubin 0.4 MG/DL (0.2-1.0) Aspartate Amino Transf (AST/SGOT) 446 U/L (15-37) H Alanine Aminotransferase (ALT/SGPT) 532 U/L (12-78) H Alkaline Phosphatase 60 U/L (46-116) Troponin I 0.000 ng/mL (0.000-0.056) Total Protein 9.3 G/DL (6.4-8.2) H Albumin 4.2 G/DL (3.4-5.0) Globulin 5.1 g/dL Albumin/Globulin Ratio 0.8 (1.0-2.7) L Lipase 687 U/L (73-393) H Height (Feet): 5 Height (Inches): 9.00 Weight (Pounds): 160 Medications Current Medications Medications (Trade) Dose Ordered Sig/Mukesh Route PRN Reason Start Time Stop Time Status Last Admin Dose Admin Folic Acid 1 mg/ Magnesium Sulfate 2000 mg/ Multivitamins 10 ml/Sodium Chloride 1,014.2 ml @ 125 mls/ hr Q24H IV 07/02/18 22:00 08/01/18 21:59 07/02/18 22:59 Morphine Sulfate (Morphine Sulfate) 4 mg Q4H PRN IVP For Pain 07/02/18 21:15 07/09/18 21:14 07/03/18 03:26 Ondansetron HCl (Zofran) 4 mg Q6H PRN IVP Nausea & Vomiting 07/02/18 21:15 08/01/18 21:14 Thiamine HCl 100 mg/Dextrose 56 ml @ 112 mls/hr Q24H IVPB 07/02/18 22:00 08/01/18 21:59 07/02/18 23:00 Assessment/Plan Status: stable Assessment/Plan #Alcohol Pancreatitis #Intractable abdominal pain #intractable nausea/vomiting #Transaminitis #Alcohol Hepatitis - LFTs 446/532 - Lipase 687 - due to alcohol abuse - INR 1.0 - discriminant function, 4.5 , no need for steroids - US abd, concerns for cirrhosis - ppi - PRN antiemetics, zofran prn - Banana bag - close lab monitoring - IVF - CIWA - monitor carefully for withdrawals - NPO, adat as sx improve.. - Admit Inpatient Alcohol Abuse - educated on cessation for 15 mins - patient states he understands and will try to quit - RN notified to monitor carefully with withdrawals - prn ativan - ciwa Tobacco abuse - smokes 1ppd - educated on smoking cessation for over 15 mins, states he understands the risks of smoking and will try to quit diet: NPO DVT Prophylaxis: SCD, HSQ Code Status: Full Hospital Classification Declaration: Based on this initial evaluation, and depending on the patient's clinical course, I anticipate that this patient will require hospitalization for [] days for [] and close respiratory/hemodynamic monitoring. I have reviewed all labs, imaging and medications Disposition: Once the patient is stable to leave the hospital, I anticipate the patient will likely be discharged to the following environment: home with HH vs SNF I spent 70 minutes on this patient's case, and 45 minutes were dedicated to counseling and/or care coordination. Discussed with patient/family, nursing staff, SW/CM regarding clinical status, treatment course, and disposition planning. Time of note may not reflect time of encounter. ------- Date of Discussion: 07/03/18 A [id number] discussion with the patient regarding the patient's advanced care planning took place during this hospitalization on the above date. The discussion included the explanation and discussion of advance directives and associated forms/documents, as well as the patient's current code status. We also discussed at length the patient's medical conditions (both acute and chronic), general prognosis, treatment options, and goals of care. The following summarizes the discussion: Advance Care Planning/Goals of Care: - Will attempt to fill out an AD and/or POLST with the patient prior to discharge, if not already completed - Continue current evaluation and management of any acute and chronic medical issues - Will continue to support the patient/family - Will continue to discuss both short- and long-term goals of care DPOA-HC/Surrogate Decision Maker: : Bonnie Crenshaw Code Status: Full Code AD Forms/Documents Completed: Deferred A total of 34 minutes was spent on this discussion, including counseling, answering questions, and completing, if any, pertinent advanced care planning forms/documents. Eulogio Siddiqi MD Jul 03, 2018 07:58
[2018-07-03 08:00] VITALS: BP 130/80
--- NOTE | 2018-07-03 08:15 | NUR ---
NURSE NOTES: Received orders from Dr. Siddiqi this am on his rounds for Ativan, heparin, and clear liquid diet after abd us. Refer to orders
--- NOTE | 2018-07-03 08:58 | NUR ---
Contacted Dr. Siddiqi notified of platelet 131, per him ok to give Heparin SQ with platelet count of 131.
[2018-07-03] MEDS: Heparin 5000 units/ml inj SUBQ SCH ×2 (09:06→22:07)
[2018-07-03 12:00] VITALS: BP 119/74
[2018-07-03] MEDS: LORazepam Inj 2mg/ml 1ml IV PRN ×3 (12:19→21:58)
--- NOTE | 2018-07-03 15:20 | Diagnostic Imaging Report ---
Indication:Abdominal pain Technique: Grayscale and duplex Doppler imaging of the abdomen performed. Comparison: None Findings: The liver is echogenic consistent with fatty infiltration. Gallstones are present. Sonographic Peralta's is negative per technologist.. The demonstrated part of the pancreas, aorta and IVC show no abnormalities. Several small renal cysts are noted within the right kidney. The CBD is 8 mm which accounting for age may be normal. Correlate clinically. The spleen is normal in size. Doppler evaluation of the main portal vein shows patency. There is no ascites. No hydronephrosis seen. Impression: Cholelithiasis. Fatty liver. 8 mm CBD. This may be normal for patient's age. Correlate clinically Multiple cysts within the right kidney
[2018-07-03 16:00] VITALS: BP 124/83
--- NOTE | 2018-07-03 16:20 | NUR ---
CASE MANAGEMENT: REVIEW 62/M PRESENTED TO ED FROM HOME CC: ABD PAIN SI: ALCOHOLIC PANCREATITIS T 98.1 HR 64 RR 19 BP 119/74 SAT 95% ROOM AIR LIPASE 687 IS: NS IVF BOLUS X1 MORPHINE IV X1 PROTONIX IV X1 ZOFRAN IV X1 INTERQUAL CRITERIA MET: PATIENT ADMITTED TO MED/SURG UNIT 07/02/2018 DCP: PATIENT IS FROM HOME CASE MANAGEMENT: REVIEW SI: ALCOHOLIC PANCREATITIS T 98.1 HR 64 RR 19 BP 119/74 SAT 95% ROOM AIR GLUCOSE 69 IS: HEPARIN SQ Q12HR BANANA BAG IV X1 B1 IVF IV Q24HR ZOFRAN IV Q6HR CLEAR LIQUID PO DIET MED/SURG UNIT STATUS DCP: PATIENT IS FROM HOME
--- NOTE | 2018-07-03 17:19 | Cardiology Report ---
APPROVED REPORT EKG Measurement Heart [id number] Normal sinus rhythm Anterior infarct, age undetermined Abnormal ECG
--- NOTE | 2018-07-03 18:04 | NUR ---
Notified Dr. Siddiqi of abd us results Impression: Cholelithiasis, fatty liver, 8mm CBD, mutliple cysts within the right kidney. Confirmed results, no new orders given. Will continue to monitor.
--- NOTE | 2018-07-03 19:20 | NUR ---
HAND-OFF: Report given to JAVIER Fernandes. Pt left in stable condition, a/o x 4 in no acute distress. Suction at bedside, bed in low position. Call light within reach.
--- NOTE | 2018-07-03 19:21 | NUR ---
NURSE NOTES: Report taken from JAVIER Craft. Patient awake and alert in bed but fatigued. Abdominal pain 6/10, tenderness in LUQ. On room air. Skin is intact. IV site c/d/i and patent. Patient has been exhibiting some minor withdrawal symptoms, continue to evaluate. bed in lowest position, call light within reach.
--- NOTE | 2018-07-03 19:43 | NUR ---
HAND-OFF: Report given to JAVIER Sanchez. Pt left in stable condition, a/o x 4. Wound VAC in place, JUNE drain tubes patent. FOOT PIECE ASSEMBLER dialudid at bedside. Call light within reach, skid socks on, bed in low position. Addendum: 07/03/18 at 1946 by Luana Arteaga RN Disregard note, wrong pt.
[2018-07-03 20:00] VITALS: BP 129/91
[2018-07-03] MEDS: Thiamine 100mg in D5W 55ml IVPB SCH (21:58)
[2018-07-03] MEDS: Folic Acid 1 MG, Magnesium Sulfate 2,000 MG, Multivitamin - 12 Injection 10 ML in Sodiu... IV SCH (21:58)
--- NOTE | 2018-07-03 22:10 | NUR ---
NURSE NOTES: Administered Heparin with platelet count of 131. MD was contacted earlier in the day and gave the ok to administer. Possibly place call to MD in the am after morning labs are complete.
[2018-07-04] VITALS: BP 142/95
[2018-07-04 04:00] VITALS: BP 133/97
--- NOTE | 2018-07-04 07:37 | NUR ---
NURSE NOTES: Patient alert x4, in room air, no sign of distress and shortness of breath. Skin intact. IV LAC, banana bag running at 125 cc. Urinal at the bed side within reach. Patient's platelet 131, will check today lab. Call light within reach. Will keep monitoring and administering medications as schedules.
--- NOTE | 2018-07-04 07:45 | NUR ---
HAND-OFF: Report given to JAVIER Potter.
[2018-07-04 08:00] VITALS: BP 123/89
--- NOTE | 2018-07-04 08:30 | General Progress Note ---
Assessment/Plan Status: not improved Assessment/Plan #Alcohol Pancreatitis #Intractable abdominal pain #intractable nausea/vomiting #Transaminitis #Alcohol Hepatitis #Alcohol withdrawals #Fatty Liver Disease - LFTs 446/532 - Lipase 687 - due to alcohol abuse - INR 1.0 - discriminant function, 4.5 , no need for steroids - US abd completed and reviewed, showing fatty liver disease. GS present, no obstruction noted. neg vickers's sign - ppi - PRN antiemetics, zofran prn - Banana bag - close lab monitoring - IVF - CIWA, requiring ativan - monitor carefully for withdrawals - NPO, adat as sx improve.. - pending AM labs Alcohol Abuse - educated on cessation for 15 mins - patient states he understands and will try to quit - RN notified to monitor carefully with withdrawals - prn ativan - ciwa Tobacco abuse - smokes 1ppd - educated on smoking cessation for over 15 mins, states he understands the risks of smoking and will try to quit diet: NPO DVT Prophylaxis: SCD, HSQ Code Status: Full Hospital Classification Declaration: Based on this initial evaluation, and depending on the patient's clinical course, I anticipate that this patient will require hospitalization for [] days for [] and close respiratory/hemodynamic monitoring. I have reviewed all labs, imaging and medications Disposition: Once the patient is stable to leave the hospital, I anticipate the patient will likely be discharged to the following environment: home with vs SNF I spent 48 minutes on this patient's case, and 31 minutes were dedicated to counseling and/or care coordination. Discussed with patient/family, nursing staff, SW/CM regarding clinical status, treatment course, and disposition planning. Time of note may not reflect time of encounter. ------- Date of Discussion: 07/03/18 A [id number] discussion with the patient regarding the patient's advanced care planning took place during this hospitalization on the above date. The discussion included the explanation and discussion of advance directives and associated forms/documents, as well as the patient's current code status. We also discussed at length the patient's medical conditions (both acute and chronic), general prognosis, treatment options, and goals of care. The following summarizes the discussion: Advance Care Planning/Goals of Care: - Will attempt to fill out an AD and/or POLST with the patient prior to discharge, if not already completed - Continue current evaluation and management of any acute and chronic medical issues - Will continue to support the patient/family - Will continue to discuss both short- and long-term goals of care DPOA-HC/Surrogate Decision Maker: : Bonnie Crenshaw Code Status: Full Code AD Forms/Documents Completed: Deferred A total of 34 minutes was spent on this discussion, including counseling, answering questions, and completing, if any, pertinent advanced care planning forms/documents. Subjective Date patient seen: Jul 04, 2018 Time patient seen: 08:24 Allergies: Coded Allergies: No Known Allergies (Unverified , 06/01/16) Subjective f/u pancreatitis, alcoholic hepatitis, nausea, alcohol abuse patient states he is very "shaky" still with alot of abdominal pain feels nausous when trying to eat, tried jel-o and did not feel well after ROS: 14 point ROS negative except for the above Objective Last 24 Hour Vital Signs Date Time Temp Pulse Resp B/P (MAP) Pulse Ox O2 Delivery O2 Flow Rate FiO2 07/04/18 04:00 98.8 75 19 133/97 (109) 93 07/04/18 00:00 98.7 84 17 142/95 (111) 94 07/03/18 21:00 Room Air 07/03/18 20:00 98.6 79 19 129/91 (104) 93 07/03/18 16:00 98.7 67 18 124/83 (97) 94 07/03/18 12:00 98.1 64 19 119/74 (89) 95 07/03/18 09:11 98.5 07/03/18 09:00 Room Air Intake and Output 07/03/18 07/04/18 18:59 06:59 Intake Total 600 ml 200 ml Output Total 700 ml 400 ml Balance -100 ml -200 ml Intake Oral 600 ml 200 ml Output Urine Total 700 ml 400 ml # Voids 2 Height (Feet): 5 Height (Inches): 9.00 Weight (Pounds): 160 Objective General Appearance: WD/WN, alert, mild distress Lines, tubes and drains: peripheral HEENT: normocephalic, atraumatic, anicteric, PERRL, other - dry mucous membrane Neck: non-tender, normal alignment Respiratory/Chest: chest wall non-tender, lungs clear, normal breath sounds, no respiratory distress, no accessory muscle use Cardiovascular/Chest: normal peripheral pulses, normal rate, regular rhythm Abdomen: normal bowel sounds, soft, no organomegaly, no mass, other - mild epigastric ttp Extremities: normal range of motion, non-tender, normal inspection, no calf tenderness, normal capillary refill, non-pitting Skin Exam: normal pigmentation, warm/dry Neurologic: no motor/sensory deficits, alert, oriented x 3, responsive, normal mood/affect Eulogio Siddiqi MD Jul 04, 2018 08:30
[2018-07-04 09:17] LABS: BASOPHILS % (AUTO) 0.9 % (0.0-2.0); HEMATOCRIT 44.2 % (42.0-52.0); HEMOGLOBIN 15.7 G/DL (14.2-18.0); MEAN CORPUSCULAR VOLUME 103 FL (80-99); MONOCYTES % (AUTO) 12.1 % (1.0-10.0); NEUTROPHILS % (AUTO) 71.1 % (45.0-75.0); PLATELET COUNT 130 K/UL (150-450); RED BLOOD COUNT 4.27 M/UL (4.70-6.10); RED CELL DISTRIBUTION WIDTH 10.6 % (11.6-14.8); WHITE BLOOD COUNT 5.3 K/UL (4.8-10.8)
[2018-07-04 09:34] LABS: ANION GAP 9 mmol/L (5-15); BLOOD UREA NITROGEN 11 mg/dL (7-18); CALCIUM 8.9 MG/DL (8.5-10.1); CARBON DIOXIDE 24 MMOL/L (21-32); CHLORIDE 103 MMOL/L (98-107); CREATININE 0.9 MG/DL (0.55-1.30); POTASSIUM 3.9 MMOL/L (3.5-5.1); SODIUM 136 MMOL/L (136-145)
--- NOTE | 2018-07-04 09:57 | NUR ---
NURSE NOTES: Stokes to give Heparin, platelet 130.
[2018-07-04] MEDS: Heparin 5000 units/ml inj SUBQ SCH ×2 (09:59→21:39)
[2018-07-04 12:00] VITALS: BP 133/88
--- NOTE | 2018-07-04 13:54 | NUR ---
NURSE NOTES: I called to pharmacy to request for Banana bag for artist color separation, Lj from pharmacy said, let the artist color separation call the pharmacy 30 minutes before the due time.
--- NOTE | 2018-07-04 15:30 | Consultation ---
History of Present Illness General Date patient seen: Jul 04, 2018 Chief Complaint: Abdominal Pain Present Illness Allergies: Coded Allergies: No Known Allergies (Unverified , 06/01/16) Medication History No Active Prescriptions or Reported Meds Patient History Healthcare decision maker Resuscitation status Full Code Advanced Directive on File Physical Exam Last 24 Hour Vital Signs Date Time Temp Pulse Resp B/P (MAP) Pulse Ox O2 Delivery O2 Flow Rate FiO2 07/04/18 12:00 98.8 77 19 133/88 (103) 95 07/04/18 09:00 Room Air 07/04/18 08:00 98.9 79 20 123/89 (100) 93 07/04/18 04:00 98.8 75 19 133/97 (109) 93 07/04/18 00:00 98.7 84 17 142/95 (111) 94 07/03/18 21:00 Room Air 07/03/18 20:00 98.6 79 19 129/91 (104) 93 07/03/18 16:00 98.7 67 18 124/83 (97) 94 Intake and Output 07/03/18 07/04/18 19:00 07:00 Intake Total 600 ml 200 ml Output Total 700 ml 400 ml Balance -100 ml -200 ml Intake Oral 600 ml 200 ml Output Urine Total 700 ml 400 ml # Voids 2 Laboratory Tests Test 07/04/18 08:52 White Blood Count 5.3 K/UL (4.8-10.8) Red Blood Count 4.27 M/UL (4.70-6.10) L Hemoglobin 15.7 G/DL (14.2-18.0) Hematocrit 44.2 % (42.0-52.0) Mean Corpuscular Volume 103 FL (80-99) H Mean Corpuscular Hemoglobin 36.7 PG (27.0-31.0) H Mean Corpuscular Hemoglobin Concent 35.5 G/DL (32.0-36.0) Red Cell Distribution Width 10.6 % (11.6-14.8) L Platelet Count 130 K/UL (150-450) L Mean Platelet Volume 7.2 FL (6.5-10.1) Neutrophils (%) (Auto) 71.1 % (45.0-75.0) Lymphocytes (%) (Auto) 13.0 % (20.0-45.0) L Monocytes (%) (Auto) 12.1 % (1.0-10.0) H Eosinophils (%) (Auto) 3.0 % (0.0-3.0) Basophils (%) (Auto) 0.9 % (0.0-2.0) Sodium Level 136 MMOL/L (136-145) Potassium Level 3.9 MMOL/L (3.5-5.1) Chloride Level 103 MMOL/L (98-107) Carbon Dioxide Level 24 MMOL/L (21-32) Anion Gap 9 mmol/L (5-15) Blood Urea Nitrogen 11 mg/dL (7-18) Creatinine 0.9 MG/DL (0.55-1.30) Estimat Glomerular Filtration Rate > 60 mL/min (>60) Glucose Level 138 MG/DL (74-106) H Calcium Level 8.9 MG/DL (8.5-10.1) Height (Feet): 5 Height (Inches): 9.00 Weight (Pounds): 160 Medications Current Medications Medications (Trade) Dose Ordered Sig/Mukesh Route PRN Reason Start Time Stop Time Status Last Admin Dose Admin Folic Acid 1 mg/ Magnesium Sulfate 2000 mg/ Multivitamins 10 ml/Sodium Chloride 1,014.2 ml @ 125 mls/ hr Q24H IV 07/02/18 22:00 08/01/18 21:59 07/03/18 21:58 Heparin Sodium (Porcine) (Heparin 5000 units/ml) 5,000 units Q12HR SUBQ 07/03/18 09:00 08/02/18 08:59 07/04/18 09:59 Lorazepam (Ativan 2mg/ml 1ml) 1 mg Q4H PRN IV For Anxiety 07/03/18 07:45 07/10/18 07:44 07/03/18 21:58 Morphine Sulfate (Morphine Sulfate) 4 mg Q4H PRN IVP For Pain 07/02/18 21:15 07/09/18 21:14 07/03/18 08:41 Ondansetron HCl (Zofran) 4 mg Q6H PRN IVP Nausea & Vomiting 07/02/18 21:15 08/01/18 21:14 07/03/18 21:58 Thiamine HCl 100 mg/Dextrose 56 ml @ 112 mls/hr Q24H IVPB 07/02/18 22:00 08/01/18 21:59 07/03/18 21:58 Assessment/Plan Assessment/Plan Hematology Consultation Note DOS: 07/04/18 RFC: Thrombocytopenia REQ MD: Tracy DAVILA Patient is a 62-year-old male who presented after increased abdominal pain. Patient gradual onset of symptoms. Patient was noted to have increased discomfort to his lower abdomen.He reports being an alcoholic. Patient states that he had been drinking earlier in the day. He had prior episodes of pancreatitis in the past. He had previous exploratory surgery on his abdomen. He was noted to have some prior history of hernia. Potential dc soon but noted to have a dropping plt count and heme was consulted. Allergies: No Known Allergies (Unverified , 06/01/16) Past Medical History: see triage record Reviewed Nursing Documentation: PMH: Agreed; PSxH: Agreed Hx Cardiac Problems: No Hx Cancer: No Hx Gastrointestinal Problems: Yes - pancreatitis Hx Neurological Problems: No ROS: Constitutional: No fever, no chills, no night sweats, no fatigue Skin: No rashes, lumps, itchiness, dryness HEENT: No WHITE, ear ache, visual changes, double vision, nosebleeds, sore throat, lumps, swollen glands Breasts: No lumps, pain, discharge Pulmonary: No cough, sputum, shortness of breath, coughing up blood, hemoptysis Cardiovascular: No chest pain, tightness, palpitations, syncope, claudication, orthopnea, PND GI: No nausea, vomiting, diarrhea, melena, hematochezia, change in appetite, abdominal pain : No dysuria, frequency, urgency, urinary incontinence, foamy urine Musculoskeletal: No joint swelling or muscle pain, trauma, back pain Neurologic: No dizziness, fainting, seizures, changes in smell or taste Psychiatric: No nervousness, stress, or depression, anxiety, hallucinations Endocrine: No weight change, heat or cold intolerance, tremor, insomnia Physical Exam General Appearance: A+O x3, NAD HEENT: normocephalic, atraumatic Neck: non-tender, normal alignment Respiratory/Chest: chest wall non-tender, lungs clear Cardiovascular/Chest: normal peripheral pulses, normal rate Abdomen: normal bowel sounds, non tender Extremities: normal range of motion Laboratory Tests Test 06/01/16 21:30 06/02/16 05:10 White Blood Count 5.8 K/UL (4.8-10.8) 3.7 K/UL (4.8-10.8) L Red Blood Count 4.27 M/UL (4.70-6.10) L 4.00 M/UL (4.70-6.10) L Hemoglobin 15.8 G/DL (14.2-18.0) 14.4 G/DL (14.2-18.0) Hematocrit 45.9 % (42.0-52.0) 42.6 % (42.0-52.0) Mean Corpuscular Volume 108 FL (80-99) H 107 FL (80-99) H Mean Corpuscular Hemoglobin 36.9 PG (27.0-31.0) H 36.1 PG (27.0-31.0) H Mean Corpuscular Hemoglobin Concent 34.3 G/DL (32.0-36.0) 33.9 G/DL (32.0-36.0) Red Cell Distribution Width 11.5 % (11.6-14.8) L 11.5 % (11.6-14.8) L Platelet Count 159 K/UL (150-450) 144 K/UL (150-450) L Mean Platelet Volume 7.5 FL (6.5-10.1) 7.0 FL (6.5-10.1) Neutrophils (%) (Auto) 47.4 % (45.0-75.0) 45.5 % (45.0-75.0) Lymphocytes (%) (Auto) 36.6 % (20.0-45.0) 37.2 % (20.0-45.0) Monocytes (%) (Auto) 12.2 % (1.0-10.0) H 12.8 % (1.0-10.0) H Eosinophils (%) (Auto) 2.3 % (0.0-3.0) 3.5 % (0.0-3.0) H Basophils (%) (Auto) 1.5 % (0.0-2.0) 0.9 % (0.0-2.0) Urine Color Yellow Urine Appearance Clear Urine pH 5 (4.5-8.0) Urine Specific [place] 1.005 (1.005-1.035) Urine Protein Negative (NEGATIVE) Urine Glucose (UA) Negative (NEGATIVE) Urine Ketones Negative (NEGATIVE) Urine Occult Blood Negative (NEGATIVE) Urine Nitrite Negative (NEGATIVE) Urine Bilirubin Negative (NEGATIVE) Urine Urobilinogen Normal MG/DL (0.0-1.0) Urine Leukocyte Esterase Negative (NEGATIVE) Sodium Level 140 mEQ/L (135-145) 143 mEQ/L (135-145) Potassium Level 5.0 mEQ/L (3.4-4.9) H 4.1 mEQ/L (3.4-4.9) Chloride Level 101 mEQ/L (98-107) 104 mEQ/L (98-107) Carbon Dioxide Level 19 mEQ/L (20-30) L 24 mEQ/L (20-30) Anion Gap 20 (5-15) H 15 (5-15) Blood Urea Nitrogen 18 mg/dL (7-23) 15 mg/dL (7-23) Creatinine 0.9 mg/dL (0.7-1.2) 0.9 mg/dL (0.7-1.2) Estimat Glomerular Filtration Rate > 60 mL/min (>60) > 60 mL/min (>60) Glucose Level 99 mg/dL (74-106) 95 mg/dL (74-106) Calcium Level 9.5 mg/dL (8.6-10.2) 8.8 mg/dL (8.6-10.2) Total Bilirubin 0.2 mg/dL (0.0-1.2) 0.3 mg/dL (0.0-1.2) Aspartate Amino Transf (AST/SGOT) 187 U/L (5-40) H 174 U/L (5-40) H Alanine Aminotransferase (ALT/SGPT) 177 U/L (3-41) H 164 U/L (3-41) H Alkaline Phosphatase 50 U/L (40-129) 46 U/L (40-129) Troponin I < 0.30 ng/mL (<=0.30) Total Protein 8.4 g/dL (6.6-8.7) 7.6 g/dL (6.6-8.7) Albumin 4.7 g/dL (3.5-5.2) 4.2 g/dL (3.5-5.2) Globulin 3.7 g/dL Albumin/Globulin Ratio 1.2 (1.0-2.7) Lipase 600 U/L (< 60) H Serum Alcohol 322 mg/dL Phosphorus Level 3.5 mg/dL (2.5-4.8) Magnesium Level 2.0 mg/dL (1.7-2.5) Direct Bilirubin 0.1 mg/dL (0.1-0.3) Height (Feet): 5 Height (Inches): 8.00 Weight (Pounds): 156 Medications Current Medications Medications (Trade) Dose Ordered Sig/Mukesh Route PRN Reason Start Time Stop Time Status Last Admin Dose Admin Acetaminophen (Tylenol) 650 mg Q6H PRN ORAL Mild Pain/Temp > 100.5 06/02/16 01:15 07/02/16 01:14 Acetaminophen/ Hydrocodone Bitart ([place] 5/325) 1 tab Q4H PRN ORAL Severe Pain (Pain Scale 7-10) 06/02/16 01:15 06/09/16 01:14 06/02/16 11:10 Folic Acid 1 mg/ Magnesium Sulfate 2000 mg/ Multivitamins 10 ml/Sodium Chloride 1,014.2 ml @ 125 mls/ hr Q24H IV 06/02/16 11:00 07/02/16 10:59 06/02/16 11:12 Heparin Sodium (Porcine) (Heparin 5000 units/ml) 5,000 units EVERY 12 HOURS SUBQ 06/02/16 09:00 07/02/16 08:59 06/02/16 07:58 Lorazepam 1 mg 1 mg Q4H PRN IV For Anxiety 06/02/16 01:15 06/09/16 01:14 Pantoprazole (Protonix) 40 mg DAILY IVP 06/02/16 09:00 07/02/16 08:59 06/02/16 07:57 Thiamine HCl/ Dextrose (Vitamin B1/D5W 50ml) 51 ml @ 100 mls/hr Q24H IVPB 06/02/16 11:00 07/02/16 10:59 06/02/16 11:11 Assessment/Plan # Thrombocytopenia is likely related to underlying reactive processs from pancreatitis, acute, as well as alcoholic intoxication and myelosuppresion --> also patient has a history of hepatitis C from prior admission --> smear has been reviewed --> transfuse if plt is less than 20k --> heparin sq is okay if needed for dvt ppx # Erythrocytosis is likely related to dehydration --> hgb goal >7, no evidence of bleeding currently --> given ivf already # Pancreatitis with alcohol abuse # Transaminitis --> likely related to etoh abuse --> in past seen by gi # Alcohol abuse -- recommend cessation The timing of this note does not necessarily reflect the time of the patient was seen Greatly appreciate consultation! Guy Salazar MD Jul 04, 2018 15:30
[2018-07-04 16:00] VITALS: BP 121/83
--- NOTE | 2018-07-04 16:34 | NUR ---
CASE MANAGEMENT: REVIEW SI: ALCOHOLIC PANCREATITIS T 98.8 HR 77 RR 19 BP 142/95 SAT 93% ROOM AIR LYMPH 13.0 MONO 12.1 IS: HEPARIN SQ Q12HR BANANA BAG IVF@125ML/HR VIT B1 IV Q24HR ZOFRAN IV Q6HR PRN NPO MED/SURG STATUS DCP: PATIENT IS FROM HOME
--- NOTE | 2018-07-04 17:41 | NUR ---
Social Service Note SW met with patient to assess for substance dependency. Patient is a chronic alcoholic. Patient states he drinks beer daily and loves how it tastes and makes him feel. Patient states many years ago he received treatment for ETOH dependency. Patient believe that rehab would not be helpful at this time. Education provided. Patient however was [facility] arranged a follow up with the [place] [facility]. Patient will need to be seen [facility] a [facility] physician first and they would need to refer patient into treatment programing and social service follow up. Follow up appoint to be provided in discharge instructions. Patient states he will return home upon discharge. Patient believes he will require transportation. Will monitor and be available as needed. Outpatient Appointment: [place] [facility] Team [facility] [place] [id number] Gemma Gee MondayJuly 13 at 7am
--- NOTE | 2018-07-04 19:38 | NUR ---
HAND-OFF: Report given to JAVIER Carbajal.
--- NOTE | 2018-07-04 19:40 | NUR ---
NURSE NOTES: Report taken from JAVIER Potter. Patient is awake and alert in bed. On room air. No complaint of pain but patient is packing machine tender in the RUQ area of his abdomen with palpation. States that he is hungry and cannot continue the clear liquid diet, is unhappy. RN contacted MD awaiting return call. skin is c/d/i. IV c/d/i. Continue to monitor, bed in lowest position, call light within reach.
[2018-07-04 20:00] VITALS: BP 132/65
--- NOTE | 2018-07-04 21:00 | NUR ---
NURSE NOTES: MD returned call. New order in for new diet advancement.
[2018-07-04] MEDS: Thiamine 100mg in D5W 55ml IVPB SCH (22:14)
[2018-07-04] MEDS: Folic Acid 1 MG, Magnesium Sulfate 2,000 MG, Multivitamin - 12 Injection 10 ML in Sodiu... IV SCH (22:14)
[2018-07-05] VITALS (7 sets, daily range): BP systolic 126–174; BP diastolic 85–110
[2018-07-05] MEDS: Morphine Sulfate 4mg/ml Inj (IV USE ONLY) IVP PRN ×3 (00:50→08:59)
[2018-07-05] MEDS: LORazepam Inj 2mg/ml 1ml IV PRN ×2 (03:52→18:44)
--- NOTE | 2018-07-05 07:23 | NUR ---
HAND-OFF: Report given to Yudy Kumar RN.
[2018-07-05 07:24] LABS: BASOPHILS % (AUTO) 0.5 % (0.0-2.0); EOSINOPHILS % (AUTO) 0.1 % (0.0-3.0); HEMATOCRIT 45.2 % (42.0-52.0); HEMOGLOBIN 16.2 G/DL (14.2-18.0); LYMPHOCYTES % (AUTO) 8.5 % (20.0-45.0); MEAN CORPUSCULAR VOLUME 104 FL (80-99); MONOCYTES % (AUTO) 9.8 % (1.0-10.0); NEUTROPHILS % (AUTO) 81.1 % (45.0-75.0); PLATELET COUNT 142 K/UL (150-450); RED BLOOD COUNT 4.33 M/UL (4.70-6.10); RED CELL DISTRIBUTION WIDTH 10.8 % (11.6-14.8); WHITE BLOOD COUNT 7.4 K/UL (4.8-10.8)
[2018-07-05 07:44] LABS: ANION GAP 14 mmol/L (5-15); BLOOD UREA NITROGEN 6 mg/dL (7-18); CALCIUM 9.3 MG/DL (8.5-10.1); CARBON DIOXIDE 20 MMOL/L (21-32); CHLORIDE 100 MMOL/L (98-107); CREATININE 0.8 MG/DL (0.55-1.30); POTASSIUM 3.9 MMOL/L (3.5-5.1); SODIUM 134 MMOL/L (136-145)
--- NOTE | 2018-07-05 07:46 | Discharge Summary ---
Discharge Summary Hospital Course Date of Admission Jul 02, 2018 at 19:08 Date of Discharge 07/05/18 Admitting Diagnosis alcoholic pancreatitis HPI Hossein Chow is a 62 year old male who was admitted on Jul 02, 2018 at 19:08 for Alcoholic Pancreatitis patient is an alcohol abuser, noted to have fatty liver on US, has h/o hep c thrombocytopenia due to myelosuppression/alcohol abuse patient tolerating diet today no acute events overnight abd pain improved no withdrawal sx currently stable for dc home Hospital Course #Alcohol Pancreatitis #Intractable abdominal pain #intractable nausea/vomiting #Transaminitis #Alcohol Hepatitis #Alcohol withdrawals #Fatty Liver Disease - LFTs 446/532 - Lipase 687 - due to alcohol abuse - INR 1.0 - discriminant function, 4.5 , no need for steroids - US abd completed and reviewed, showing fatty liver disease. GS present, no obstruction noted. neg vickers's sign - ppi - PRN antiemetics, zofran prn - Banana bag - close lab monitoring - IVF - CIWA, requiring ativan - monitor carefully for withdrawals - tolerating diet now Alcohol Abuse - educated on cessation for 15 mins - patient states he understands and will try to quit - RN notified to monitor carefully with withdrawals - prn ativan - ciwa Tobacco abuse - smokes 1ppd - educated on smoking cessation for over 15 mins, states he understands the risks of smoking and will try to quit diet: NPO DVT Prophylaxis: SCD, HSQ Code Status: Full Hospital Classification Declaration: Based on this initial evaluation, and depending on the patient's clinical course, I anticipate that this patient will require hospitalization for 2-3days for alcohol abuse, pancreatitis and close respiratory/hemodynamic monitoring. I have reviewed all labs, imaging and medications Disposition: Once the patient is stable to leave the hospital, I anticipate the patient will likely be discharged to the following environment: home I spent over 40 minutes on this patient's case, counseling and/or care and discharge/dispo planning. Discussed with patient/family, nursing staff, SW/CM regarding clinical status, treatment course, and disposition planning. Time of note may not reflect time of encounter. ------- Date of Discussion: 07/03/18 A [id number] discussion with the patient regarding the patient's advanced care planning took place during this hospitalization on the above date. The discussion included the explanation and discussion of advance directives and associated forms/documents, as well as the patient's current code status. We also discussed at length the patient's medical conditions (both acute and chronic), general prognosis, treatment options, and goals of care. The following summarizes the discussion: Advance Care Planning/Goals of Care: - Will attempt to fill out an AD and/or POLST with the patient prior to discharge, if not already completed - Continue current evaluation and management of any acute and chronic medical issues - Will continue to support the patient/family - Will continue to discuss both short- and long-term goals of care DPOA-HC/Surrogate Decision Maker: : Bonnie Crenshaw Code Status: Full Code AD Forms/Documents Completed: Deferred A total of 34 minutes was spent on this discussion, including counseling, answering questions, and completing, if any, pertinent advanced care planning forms/documents. Discharge Medications Medication Profile: No Active Prescriptions or Reported Meds Discharge Condition Upon Discharge: stable Discharge Disposition Patient was discharged to home Discharge Diagnoses: (1) Hepatitis C (2) Pancreatitis, acute (3) Alcoholic pancreatitis (4) Alcohol abuse (5) Fatty liver Eulogio Siddiqi MD Jul 05, 2018 07:46
--- NOTE | 2018-07-05 07:47 | NUR ---
NURSE NOTES: Received report from JAVIER Carbajal. Rounding done with outgoing nurse. Patient a/o x4 and having breakfast. c/o abdominal pain 12/26 and will give the pain medicine as ordered. Bed in lowest position and call light within reach. Will continue to monitor.
--- NOTE | 2018-07-05 08:30 | NUR ---
NURSE NOTES: Patient a/o x4. BP 174/107 mmHg with c/o 9/[address] Siddiqi notified. ordered. 1. Cancel d/c order 2. Librium 50mg TID po Noted and carried out.
[2018-07-05] MEDS: Heparin 5000 units/ml inj SUBQ SCH ×2 (09:00→21:16)
[2018-07-05] MEDS: chlordiazePOXIDE 25mg Cap ORAL SCH ×4 (09:36→21:15)
--- NOTE | 2018-07-05 10:00 | NUR ---
NURSE NOTES: BP 162/101 mmHg after Morphine 4mg and librium 50mg were given. Dr. Siddiqi notified. ordered Clonidine 0.1 mg po one time. Noted and carried out.
--- NOTE | 2018-07-05 11:45 | NUR ---
NURSE NOTES: BP 160/85 and HR [address] Siddiqi notified and aware.
--- NOTE | 2018-07-05 13:18 | General Progress Note ---
Assessment/Plan Assessment/Plan # Thrombocytopenia is likely related to underlying reactive processs from pancreatitis, acute, as well as alcoholic intoxication and myelosuppression --> also patient has a history of hepatitis C from prior admission --> smear has been reviewed --> transfuse if plt is less than 20k --> heparin sq is okay if needed for dvt ppx # Erythrocytosis is likely related to dehydration --> hgb goal >7, no evidence of bleeding currently --> given ivf already # Pancreatitis with alcohol abuse --> recommend etoh cessation # Transaminitis --> likely related to etoh abuse --> in past seen by gi # Alcohol abuse -- recommend cessation The timing of this note does not necessarily reflect the time of the patient was seen Greatly appreciate consultation! Subjective Cardiovascular: Denies: no symptoms, chest pain, edema, irregular heart rate, lightheadedness, palpitations, syncope, other Respiratory: Denies: no symptoms, cough, orthopnea, shortness of breath, SOB with excertion, SOB at rest, sputum, stridor, wheezing, other Gastrointestinal/Abdominal: Denies: no symptoms, abdomen distended, abdominal pain, black stools, tarry stools, blood in stool, constipated, diarrhea, difficulty swallowing, nausea, poor appetite, poor fluid intake, rectal bleeding , vomiting, other Genitourinary: Denies: no symptoms, burning, discharge, frequency, flank pain, hematuria, incontinence, pain, urgency, other Neurologic/Psychiatric: Denies: no symptoms, anxiety, depressed, emotional problems, headache, numbness, paresthesia, pre-existing deficit, seizure, tingling, tremors, weakness, other Hematologic/Lymphatic: Denies: no symptoms, anemia, easy bleeding, easy bruising, other Allergies: Coded Allergies: No Known Allergies (Unverified , 06/01/16) Subjective 07/05: bp was high today and dc was cancelled until tomorow, on librium Objective Last 24 Hour Vital Signs Date Time Temp Pulse Resp B/P (MAP) Pulse Ox O2 Delivery O2 Flow Rate FiO2 07/05/18 12:00 97.3 74 19 160/85 (110) 99 07/05/18 10:34 162/102 07/05/18 10:00 73 162/102 (122) 07/05/18 09:00 Room Air 07/05/18 08:00 98.1 81 19 174/107 (129) 98 07/05/18 04:00 98.2 67 19 139/93 (108) 97 07/05/18 00:00 98.5 81 18 136/90 (105) 97 07/04/18 21:00 Room Air 07/04/18 20:00 99.1 67 18 132/65 (87) 96 07/04/18 16:00 99.3 72 19 121/83 (96) 96 Intake and Output 07/04/18 07/05/18 18:59 06:59 Intake Total 1400 ml 400 ml Balance 1400 ml 400 ml Intake Oral 1400 ml 400 ml # Voids 3 3 # Bowel Movements 1 Laboratory Tests 07/05/18 06:12: White Blood Count 7.4, Red Blood Count 4.33L, Hemoglobin 16.2, Hematocrit 45.2, Mean Corpuscular Volume 104H, Mean Corpuscular Hemoglobin 37.4H, Mean Corpuscular Hemoglobin Concent 35.8, Red Cell Distribution Width 10.8L, Platelet Count 142L, Mean Platelet Volume 7.6, Neutrophils (%) (Auto) 81.1H, Lymphocytes (%) (Auto) 8.5L, Monocytes (%) (Auto) 9.8, Eosinophils (%) (Auto) 0.1, Basophils (%) (Auto) 0.5, Sodium Level 134L, Potassium Level 3.9, Chloride Level 100, Carbon Dioxide Level 20L, Anion Gap 14, Blood Urea Nitrogen 6L, Creatinine 0.8, Estimat Glomerular Filtration Rate > 60, Glucose Level 138H, Calcium Level 9.3 Height (Feet): 5 Height (Inches): 9.00 Weight (Pounds): 160 Objective Physical Exam General Appearance: A+O x3, NAD HEENT: normocephalic, atraumatic Neck: non-tender, normal alignment Respiratory/Chest: chest wall non-tender, lungs clear Cardiovascular/Chest: normal peripheral pulses, normal rate Abdomen: normal bowel sounds, non tender Extremities: normal range of motion Guy Salazar MD Jul 05, 2018 13:18
--- NOTE | 2018-07-05 13:47 | General Progress Note ---
Assessment/Plan Status: not improved Assessment/Plan #Alcohol Pancreatitis #Intractable abdominal pain #intractable nausea/vomiting #Transaminitis #Alcohol Hepatitis #Alcohol withdrawals #Fatty Liver Disease - LFTs 446/532 - Lipase 687 - due to alcohol abuse - INR 1.0 - discriminant function, 4.5 , no need for steroids - US abd completed and reviewed, showing fatty liver disease. GS present, no obstruction noted. neg vickers's sign - ppi - PRN antiemetics, zofran prn - Banana bag - close lab monitoring - IVF - CIWA, requiring ativan - started librium - monitor carefully for withdrawals - tolerating diet now Alcohol Abuse - educated on cessation for 15 mins - patient states he understands and will try to quit - RN notified to monitor carefully with withdrawals - prn ativan - ciwa - started librium Uncontrolled HTN - clonidine 0.1 mg po prn - start amlodipine 10mg qday Tobacco abuse - smokes 1ppd - educated on smoking cessation for over 15 mins, states he understands the risks of smoking and will try to quit diet: NPO DVT Prophylaxis: SCD, HSQ Code Status: Full Hospital Classification Declaration: Based on this initial evaluation, and depending on the patient's clinical course, I anticipate that this patient will require hospitalization for 2-3days for alcohol abuse, pancreatitis and close respiratory/hemodynamic monitoring. I have reviewed all labs, imaging and medications Disposition: Once the patient is stable to leave the hospital, I anticipate the patient will likely be discharged to the following environment: home I spent over 55 minutes on this patient's case, and over 50% of that time was spent on counseling and/or care . Discussed with patient/family, nursing staff , SW/CM regarding clinical status, treatment course, and disposition planning. Time of note may not reflect time of encounter. ------- Date of Discussion: 07/03/18 A [id number] discussion with the patient regarding the patient's advanced care planning took place during this hospitalization on the above date. The discussion included the explanation and discussion of advance directives and associated forms/documents, as well as the patient's current code status. We also discussed at length the patient's medical conditions (both acute and chronic), general prognosis, treatment options, and goals of care. The following summarizes the discussion: Advance Care Planning/Goals of Care: - Will attempt to fill out an AD and/or POLST with the patient prior to discharge, if not already completed - Continue current evaluation and management of any acute and chronic medical issues - Will continue to support the patient/family - Will continue to discuss both short- and long-term goals of care DPOA-HC/Surrogate Decision Maker: : Bonnie Crenshaw Code Status: Full Code AD Forms/Documents Completed: Deferred A total of 34 minutes was spent on this discussion, including counseling, answering questions, and completing, if any, pertinent advanced care planning forms/documents. Subjective Date patient seen: Jul 05, 2018 Time patient seen: 05:45 Allergies: Coded Allergies: No Known Allergies (Unverified , 06/01/16) Subjective f/u pancreatitis, alcoholic hepatitis, nausea, alcohol abuse patient still very shaky now with uncontrolled HTN denies any chest pain did not tolerate diet,has been having severe abdominal pain ROS: 14 point ROS negative except for the above Objective Last 24 Hour Vital Signs Date Time Temp Pulse Resp B/P (MAP) Pulse Ox O2 Delivery O2 Flow Rate FiO2 07/05/18 12:00 97.3 74 19 160/85 (110) 99 07/05/18 10:34 162/102 07/05/18 10:00 73 162/102 (122) 07/05/18 09:00 Room Air 07/05/18 08:00 98.1 81 19 174/107 (129) 98 07/05/18 04:00 98.2 67 19 139/93 (108) 97 07/05/18 00:00 98.5 81 18 136/90 (105) 97 07/04/18 21:00 Room Air 07/04/18 20:00 99.1 67 18 132/65 (87) 96 07/04/18 16:00 99.3 72 19 121/83 (96) 96 Intake and Output 07/04/18 07/05/18 18:59 06:59 Intake Total 1400 ml 400 ml Balance 1400 ml 400 ml Intake Oral 1400 ml 400 ml # Voids 3 3 # Bowel Movements 1 Laboratory Tests 07/05/18 06:12: White Blood Count 7.4, Red Blood Count 4.33L, Hemoglobin 16.2, Hematocrit 45.2, Mean Corpuscular Volume 104H, Mean Corpuscular Hemoglobin 37.4H, Mean Corpuscular Hemoglobin Concent 35.8, Red Cell Distribution Width 10.8L, Platelet Count 142L, Mean Platelet Volume 7.6, Neutrophils (%) (Auto) 81.1H, Lymphocytes (%) (Auto) 8.5L, Monocytes (%) (Auto) 9.8, Eosinophils (%) (Auto) 0.1, Basophils (%) (Auto) 0.5, Sodium Level 134L, Potassium Level 3.9, Chloride Level 100, Carbon Dioxide Level 20L, Anion Gap 14, Blood Urea Nitrogen 6L, Creatinine 0.8, Estimat Glomerular Filtration Rate > 60, Glucose Level 138H, Calcium Level 9.3 Height (Feet): 5 Height (Inches): 9.00 Weight (Pounds): 160 Objective General Appearance: WD/WN, alert, mild distress Lines, tubes and drains: peripheral HEENT: normocephalic, atraumatic, anicteric, PERRL, other - dry mucous membrane Neck: non-tender, normal alignment Respiratory/Chest: chest wall non-tender, lungs clear, normal breath sounds, no respiratory distress, no accessory muscle use Cardiovascular/Chest: normal peripheral pulses, normal rate, regular rhythm Abdomen: normal bowel sounds, soft, no organomegaly, no mass, other - mild epigastric ttp Extremities: normal range of motion, non-tender, normal inspection, no calf tenderness, normal capillary refill, non-pitting Skin Exam: normal pigmentation, warm/dry Neurologic: no motor/sensory deficits, alert, oriented x 3, responsive, normal mood/affect Eulogio Siddiqi MD Jul 05, 2018 13:47
--- NOTE | 2018-07-05 18:20 | NUR ---
NURSE NOTES: Patient HR 120 BP 136/[address] Siddiqi notified and ordered. 1. Change Librium 50 mg TID to QID 2. give prn ativan noted and carried out.
--- NOTE | 2018-07-05 18:28 | NUR ---
CASE MANAGEMENT: REVIEW SI: ALCOHOLIC PANCREATITIS . ASPIRATION PNEUMONIA T 97.3 HR 74 RR 19 BP 160/85 SAT 99% ROOM AIR NA 134 IS: HEPARIN SQ Q12HR BANANA BAG IVF@125ML/HR VIT B1 IV Q24HR ZOFRAN IV Q6HR PRN CLEAR LIQUID PO DIET MED/SURG STATUS DCP: PATIENT IS FROM HOME
--- NOTE | 2018-07-05 19:31 | NUR ---
HAND-OFF: Report given to JAVIER Philippe.
--- NOTE | 2018-07-05 19:38 | NUR ---
NURSE NOTES: patient received. patient in no acute distress at this time. patient resting at this time. patient does not appear to be in any pain at this time. patient IV intact and asymptomatic. urinal at bedside. bed in lowest position and locked. call light within reach. will continue to monitor.
[2018-07-05] MEDS: Thiamine 100mg in D5W 55ml IVPB SCH (21:15)
[2018-07-05] MEDS: Folic Acid 1 MG, Magnesium Sulfate 2,000 MG, Multivitamin - 12 Injection 10 ML in Sodiu... IV SCH (21:15)
--- NOTE | 2018-07-05 23:47 | NUR ---
HAND-OFF: Report given to nataliia askew.
--- NOTE | 2018-07-05 23:48 | NUR ---
NURSE NOTES: Received patient in no apparent distress. Patient is sleeping. IV site patent and intact. Bed in lowest position. Call light within reach. Will continue to monitor.
[2018-07-06] VITALS: BP 130/87
[2018-07-06 04:00] VITALS: BP 138/85
[2018-07-06] MEDS: Morphine Sulfate 4mg/ml Inj (IV USE ONLY) IVP PRN ×4 (04:06→18:08)
--- NOTE | 2018-07-06 07:10 | NUR ---
HAND-OFF: Report given to Yudy Kumar RN.
--- NOTE | 2018-07-06 07:37 | NUR ---
NURSE NOTES: Received report from JAVIER Galarza. Rounding done with outgoing nurse. Patient asleep. Call light within reach and will continue to monitor.
[2018-07-06 07:41] LABS: HEMATOCRIT 46.5 % (42.0-52.0); HEMOGLOBIN 16.7 G/DL (14.2-18.0); MEAN CORPUSCULAR VOLUME 103 FL (80-99); PLATELET COUNT 160 K/UL (150-450); RED BLOOD COUNT 4.52 M/UL (4.70-6.10); RED CELL DISTRIBUTION WIDTH 10.9 % (11.6-14.8); WHITE BLOOD COUNT 18.6 K/UL (4.8-10.8)
[2018-07-06 07:50] LABS: ANION GAP 12 mmol/L (5-15); BLOOD UREA NITROGEN 11 mg/dL (7-18); CALCIUM 8.9 MG/DL (8.5-10.1); CARBON DIOXIDE 22 MMOL/L (21-32); CHLORIDE 96 MMOL/L (98-107); POTASSIUM 3.8 MMOL/L (3.5-5.1); SODIUM 130 MMOL/L (136-145)
[2018-07-06 08:00] VITALS: BP 149/95
[2018-07-06] MEDS: chlordiazePOXIDE 25mg Cap ORAL SCH ×4 (08:33→21:09)
[2018-07-06] MEDS: Heparin 5000 units/ml inj SUBQ SCH ×2 (08:35→21:11)
[2018-07-06 10:51] LABS: HEMATOCRIT 48.4 % (42.0-52.0); HEMOGLOBIN 17.2 G/DL (14.2-18.0); MEAN CORPUSCULAR VOLUME 101 FL (80-99); PLATELET COUNT 154 K/UL (150-450); RED BLOOD COUNT 4.78 M/UL (4.70-6.10); RED CELL DISTRIBUTION WIDTH 10.3 % (11.6-14.8); WHITE BLOOD COUNT 18.6 K/UL (4.8-10.8)
[2018-07-06 11:54] LABS: APPEARANCE,URINE SLIGHTLY CLOUDY; BILIRUBIN, URINE 2+ (NEGATIVE); COLOR,URINE BROWN; GLUCOSE, URINE (UA) NEGATIVE (NEGATIVE); KETONES,URINE NEGATIVE (NEGATIVE); LEUKOCYTE ESTERASE ,URINE 1+ (NEGATIVE); NITRITE,URINE NEGATIVE (NEGATIVE); PH,URINE 5 (4.5-8.0); PROTEIN,URINE 3+ (NEGATIVE); UROBILINOGEN,URINE 12 MG/DL (0.0-1.0)
[2018-07-06 12:00] VITALS: BP 132/96
--- NOTE | 2018-07-06 12:30 | General Progress Note ---
Assessment/Plan Status: stable Assessment/Plan #Sepsis #Aspiration pneumonia - tachycardia with HR 110 with WBC 18, concerns for aspiration pneumonia - zosyn - bcx x 2 - cxr pending - ua neg - fluids #Alcohol Pancreatitis #Intractable abdominal pain #intractable nausea/vomiting #Transaminitis #Alcohol Hepatitis #Alcohol withdrawals #Fatty Liver Disease - LFTs 446/532 - Lipase 687 - due to alcohol abuse - INR 1.0 - discriminant function, 4.5 , no need for steroids - US abd completed and reviewed, showing fatty liver disease. GS present, no obstruction noted. neg vickers's sign - ppi - PRN antiemetics, zofran prn - Banana bag - close lab monitoring - IVF - CIWA, requiring ativan - increased librium dosing - monitor carefully for withdrawals - has been vomiting all day yesterday, is not tolerating diet, give d5ns and a bolus of NS Alcohol Abuse - educated on cessation for 15 mins - patient states he understands and will try to quit - RN notified to monitor carefully with withdrawals - prn ativan - ciwa - started librium, increased frequency today Uncontrolled HTN - clonidine 0.1 mg po prn - start amlodipine 10mg qday Tobacco abuse - smokes 1ppd - educated on smoking cessation for over 15 mins, states he understands the risks of smoking and will try to quit diet: NPO DVT Prophylaxis: SCD, HSQ Code Status: Full Hospital Classification Declaration: Based on this initial evaluation, and depending on the patient's clinical course, I anticipate that this patient will require hospitalization for 2-3days for alcohol abuse, pancreatitis and close respiratory/hemodynamic monitoring. I have reviewed all labs, imaging and medications Disposition: Once the patient is stable to leave the hospital, I anticipate the patient will likely be discharged to the following environment: home I spent over 50 minutes on this patient's case, and over 50% of that time was spent on counseling and/or care . Discussed with patient/family, nursing staff , BUTCH/URSULA regarding clinical status, treatment course, and disposition planning. Time of note may not reflect time of encounter. ------- Date of Discussion: 07/03/18 A [id number] discussion with the patient regarding the patient's advanced care planning took place during this hospitalization on the above date. The discussion included the explanation and discussion of advance directives and associated forms/documents, as well as the patient's current code status. We also discussed at length the patient's medical conditions (both acute and chronic), general prognosis, treatment options, and goals of care. The following summarizes the discussion: Advance Care Planning/Goals of Care: - Will attempt to fill out an AD and/or POLST with the patient prior to discharge, if not already completed - Continue current evaluation and management of any acute and chronic medical issues - Will continue to support the patient/family - Will continue to discuss both short- and long-term goals of care DPOA-HC/Surrogate Decision Maker: : Bonnie Crenshaw Code Status: Full Code AD Forms/Documents Completed: Deferred A total of 34 minutes was spent on this discussion, including counseling, answering questions, and completing, if any, pertinent advanced care planning forms/documents. Subjective Date patient seen: Jul 06, 2018 Time patient seen: 12:29 Allergies: Coded Allergies: No Known Allergies (Unverified , 06/01/16) Subjective f/u pancreatitis, alcoholic hepatitis, nausea, alcohol abuse not tolerating diet anymore vomited all day yesterday will not drink fluids feels weak and shaky denies chest pain or sob denies fevers but admits to chills denies diarrhea/constipation but still has epigastric burning pain ROS: 14 point ROS negative except for the above Objective Last 24 Hour Vital Signs Date Time Temp Pulse Resp B/P (MAP) Pulse Ox O2 Delivery O2 Flow Rate FiO2 07/06/18 12:00 99.8 116 20 132/96 (108) 95 07/06/18 09:00 Room Air 07/06/18 08:33 118 149/95 07/06/18 08:00 100.3 118 19 149/95 (113) 94 07/06/18 04:00 98.8 110 20 138/85 (102) 95 07/06/18 00:00 100.0 116 20 130/87 (101) 95 07/05/18 21:00 Room Air 07/05/18 20:00 100.0 116 20 126/85 (99) 94 07/05/18 16:41 167/110 07/05/18 16:00 99.1 92 19 167/110 (129) 98 07/05/18 14:01 74 160/85 Intake and Output 07/05/18 07/06/18 18:59 06:59 Intake Total 400 ml 875 ml Output Total 350 ml Balance 50 ml 875 ml Intake Oral 400 ml IV Total 875 ml Output Urine Total 350 ml # Voids 4 3 Laboratory Tests 07/06/18 06:46: White Blood Count 18.6#H, Red Blood Count 4.52L, Hemoglobin 16.7, Hematocrit 46.5, Mean Corpuscular Volume 103H, Mean Corpuscular Hemoglobin 37.1H, Mean Corpuscular Hemoglobin Concent 36.0, Red Cell Distribution Width 10.9L, Platelet Count 160, Mean Platelet Volume 7.2, Neutrophils (%) (Auto) , Lymphocytes (%) (Auto) , Monocytes (%) (Auto) , Eosinophils (%) (Auto) , Basophils (%) (Auto) , Differential Total Cells Counted 100, Neutrophils % ( Manual) 78H, Lymphocytes % (Manual) 3L, Monocytes % (Manual) 14H, Eosinophils % (Manual) 0, Basophils % (Manual) 0, Band Neutrophils 5, Platelet Estimate Adequate, Platelet Morphology Normal, Red Blood Cell Morphology Normal, Sodium Level 130L, Potassium Level 3.8, Chloride Level 96L, Carbon Dioxide Level 22, Anion Gap 12, Blood Urea Nitrogen 11, Creatinine 1.0, Estimat Glomerular Filtration Rate > 60, Glucose Level 149H, Calcium Level 8.9 07/06/18 10:20: White Blood Count 18.6H, Red Blood Count 4.78, Hemoglobin 17.2, Hematocrit 48.4 , Mean Corpuscular Volume 101H, Mean Corpuscular Hemoglobin 35.9H, Mean Corpuscular Hemoglobin Concent 35.4, Red Cell Distribution Width 10.3L, Platelet Count 154, Mean Platelet Volume 7.7, Neutrophils (%) (Auto) , Lymphocytes (%) (Auto) , Monocytes (%) (Auto) , Eosinophils (%) (Auto) , Basophils (%) (Auto) , Differential Total Cells Counted 100, Neutrophils % ( Manual) 79H, Lymphocytes % (Manual) 3L, Monocytes % (Manual) 15H, Eosinophils % (Manual) 0, Basophils % (Manual) 0, Band Neutrophils 3, Platelet Estimate Adequate, Platelet Morphology Normal, Anisocytosis 1+, Macrocytosis 1+ 07/06/18 11:30: Urine Color Brown, Urine Appearance Slightly cloudy, Urine pH 5, Urine Specific [place] 1.025, Urine Protein 3+H, Urine Glucose (UA) Negative, Urine Ketones Negative, Urine Blood 2+H, Urine Nitrite Negative, Urine Bilirubin 2+H, Urine Ictotest [Pending], Urine Urobilinogen 12H, Urine Leukocyte Esterase 1+H, Urine RBC [Pending], Urine WBC [Pending], Urine Squamous Epithelial Cells [Pending], Urine Bacteria [Pending] Height (Feet): 5 Height (Inches): 9.00 Weight (Pounds): 160 Objective General Appearance: WD/WN, alert, mild distress Lines, tubes and drains: peripheral HEENT: normocephalic, atraumatic, anicteric, PERRL, other - dry mucous membrane Neck: non-tender, normal alignment Respiratory/Chest: chest wall non-tender, lungs clear, normal breath sounds, no respiratory distress, no accessory muscle use Cardiovascular/Chest: normal peripheral pulses, normal rate, regular rhythm Abdomen: normal bowel sounds, soft, no organomegaly, no mass, other - mild epigastric ttp Extremities: normal range of motion, non-tender, normal inspection, no calf tenderness, normal capillary refill, non-pitting. +asterixis Skin Exam: normal pigmentation, warm/dry Neurologic: no motor/sensory deficits, alert, oriented x 3, responsive, normal mood/affect Eulogio Siddiqi MD Jul 06, 2018 12:30
--- NOTE | 2018-07-06 13:15 | NUR ---
RADIOLOGY DEPT CHEST X-RAY DONE.-P.DYE
--- NOTE | 2018-07-06 13:25 | NUR ---
RD ASSESSMENT & RECOMMENDATIONS SEE CARE ACTIVITY FOR COMPLETE ASSESSMENT DAILY ESTIMATED NEEDS: Needs based on Pancreatitis, 72.6kg 25-30 kcals/kg 8486-8132 total kcals 1-1.5 g protein/kg 73-109 g total protein 25-30 mL/kg 9757-5774 total fluid mLs NUTRITION DIAGNOSIS: Altered nutrition-related lab values R/T liver dysfunction, pancreatitis, clinical condition, HTN as evidenced by elev LFTs, elev lipase (687), low Na (130), episodes of elev BPs (174/107, 167/110). CURRENT DIET:CLEAR LIQUID PO DIET RECOMMENDATIONS: Advance diet per MD-> LOW FAT, LOW NA ADDITIONAL RECOMMENDATIONS: 1) Ensure CLEAR TID while on CLD 2) Monitor Lipase and LFTs 3) Monitor BGs, need for carb controlled diet, SSI - A1C 5.8 4) Calibrated bedscale wt for accurate CBW .
[2018-07-06] MEDS ORDERED: D5NS 1,000 ML IV SCH (13:30)
[2018-07-06] MEDS: Piperacillin/Tazobactam 3.375 GM in D5W 110 ML IVPB SCH ×2 (13:52→21:09)
[2018-07-06] MEDS ORDERED: Pantoprazole Inj IVP SCH (14:00)
--- NOTE | 2018-07-06 15:28 | Diagnostic Imaging Report ---
Indication: Cough Comparison: None A single view chest radiograph was obtained. Findings: No definite infiltrate or pulmonary vascular congestion identified. The heart is normal in size. The bones are osteopenic. Surgical clips noted in the upper abdomen. Impression: No acute disease
[2018-07-06] MEDS: LORazepam Inj 2mg/ml 1ml IV PRN ×2 (15:45→20:44)
[2018-07-06 16:00] VITALS: BP 141/98
--- NOTE | 2018-07-06 18:25 | NUR ---
CASE MANAGEMENT: REVIEW SI: ALCOHOLIC PANCREATITIS . ASPIRATION PNEUMONIA T 99.8 HR 116 RR 20 BP 149/95 SAT 94% ROOM AIR WBC 18.6 NA 130 IS: HEPARIN SQ Q12HR BANANA BAG IVF@125ML/HR VIT B1 IV Q24HR ZOFRAN IV Q6HR PRN CLEAR LIQUID PO DIET MED/SURG STATUS DCP: PATIENT IS FROM HOME
--- NOTE | 2018-07-06 19:35 | NUR ---
NURSE NOTES: Received pt. and report from Yudy Kumar RN. Observe pt. resting in bed, A/O x 3, IV site is Lt forearm 22g saline locked. Pt. is currently on clear liquid diet. Bed is in the lowest position and locked, call light within. No acute distress noted at this time. Will continue plan of care.
--- NOTE | 2018-07-06 19:43 | NUR ---
HAND-OFF: Report given to My, RN.
[2018-07-06 20:00] VITALS: BP 163/97
--- NOTE | 2018-07-06 20:25 | General Progress Note ---
Assessment/Plan Assessment/Plan # Thrombocytopenia is likely related to underlying reactive processs from pancreatitis, acute, as well as alcoholic intoxication and myelosuppression --> also patient has a history of hepatitis C from prior admission --> smear has been reviewed --> heparin sq is okay if needed for dvt ppx # Erythrocytosis is likely related to dehydration --> hgb goal >7, no evidence of bleeding currently --> given ivf already # Leukocytosis no e/o annie infection --> could be due to reactive process # Pancreatitis with alcohol abuse --> recommend etoh cessation # Transaminitis --> likely related to etoh abuse --> in past seen by gi # Alcohol abuse -- recommend cessation The timing of this note does not necessarily reflect the time of the patient was seen Greatly appreciate consultation! Subjective Constitutional: Denies: no symptoms, chills, diaphoresis, fever, malaise, weakness, other HEENT: Denies: no symptoms, eye pain, blurred vision, tearing, double vision, ear pain, ear discharge, nose pain, nose congestion, throat pain, throat swelling, mouth pain, mouth swelling, other Cardiovascular: Denies: no symptoms, chest pain, edema, irregular heart rate, lightheadedness, palpitations, syncope, other Respiratory: Denies: no symptoms, cough, orthopnea, shortness of breath, SOB with excertion, SOB at rest, sputum, stridor, wheezing, other Neurologic/Psychiatric: Denies: no symptoms, anxiety, depressed, emotional problems, headache, numbness, paresthesia, pre-existing deficit, seizure, tingling, tremors, weakness, other Endocrine: Denies: no symptoms, excessive sweating, flushing, intolerance to cold, intolerance to heat, increased hunger, increased thirst, increased urine, unexplained weight gain, unexplained weight loss, other Hematologic/Lymphatic: Denies: no symptoms, anemia, easy bleeding, easy bruising, other Allergies: Coded Allergies: No Known Allergies (Unverified , 06/01/16) Subjective 07/05: bp was high today and dc was cancelled until tomorow, on librium 07/06: wbc was high though other counts are better, no f/c Objective Last 24 Hour Vital Signs Date Time Temp Pulse Resp B/P (MAP) Pulse Ox O2 Delivery O2 Flow Rate FiO2 07/06/18 16:00 98.7 109 19 141/98 (112) 94 07/06/18 12:00 99.8 116 20 132/96 (108) 95 07/06/18 09:00 Room Air 07/06/18 08:33 118 149/95 07/06/18 08:00 100.3 118 19 149/95 (113) 94 07/06/18 04:00 98.8 110 20 138/85 (102) 95 07/06/18 00:00 100.0 116 20 130/87 (101) 95 07/05/18 21:00 Room Air Intake and Output 07/05/18 07/06/18 19:00 07:00 Intake Total 400 ml 875 ml Output Total 350 ml Balance 50 ml 875 ml Intake Oral 400 ml IV Total 875 ml Output Urine Total 350 ml # Voids 4 3 Laboratory Tests 07/06/18 06:46: White Blood Count 18.6#H, Red Blood Count 4.52L, Hemoglobin 16.7, Hematocrit 46.5, Mean Corpuscular Volume 103H, Mean Corpuscular Hemoglobin 37.1H, Mean Corpuscular Hemoglobin Concent 36.0, Red Cell Distribution Width 10.9L, Platelet Count 160, Mean Platelet Volume 7.2, Neutrophils (%) (Auto) , Lymphocytes (%) (Auto) , Monocytes (%) (Auto) , Eosinophils (%) (Auto) , Basophils (%) (Auto) , Differential Total Cells Counted 100, Neutrophils % ( Manual) 78H, Lymphocytes % (Manual) 3L, Monocytes % (Manual) 14H, Eosinophils % (Manual) 0, Basophils % (Manual) 0, Band Neutrophils 5, Platelet Estimate Adequate, Platelet Morphology Normal, Red Blood Cell Morphology Normal, Sodium Level 130L, Potassium Level 3.8, Chloride Level 96L, Carbon Dioxide Level 22, Anion Gap 12, Blood Urea Nitrogen 11, Creatinine 1.0, Estimat Glomerular Filtration Rate > 60, Glucose Level 149H, Calcium Level 8.9 07/06/18 10:20: White Blood Count 18.6H, Red Blood Count 4.78, Hemoglobin 17.2, Hematocrit 48.4 , Mean Corpuscular Volume 101H, Mean Corpuscular Hemoglobin 35.9H, Mean Corpuscular Hemoglobin Concent 35.4, Red Cell Distribution Width 10.3L, Platelet Count 154, Mean Platelet Volume 7.7, Neutrophils (%) (Auto) , Lymphocytes (%) (Auto) , Monocytes (%) (Auto) , Eosinophils (%) (Auto) , Basophils (%) (Auto) , Differential Total Cells Counted 100, Neutrophils % ( Manual) 79H, Lymphocytes % (Manual) 3L, Monocytes % (Manual) 15H, Eosinophils % (Manual) 0, Basophils % (Manual) 0, Band Neutrophils 3, Platelet Estimate Adequate, Platelet Morphology Normal, Anisocytosis 1+, Macrocytosis 1+ 07/06/18 11:30: Urine Color Brown, Urine Appearance Slightly cloudy, Urine pH 5, Urine Specific [place] 1.025, Urine Protein 3+H, Urine Glucose (UA) Negative, Urine Ketones Negative, Urine Blood 2+H, Urine Nitrite Negative, Urine Bilirubin 2+H, Urine Ictotest Negative, Urine Urobilinogen 12H, Urine Leukocyte Esterase 1+H, Urine RBC 2-4H, Urine WBC 2-4, Urine Squamous Epithelial Cells ModerateH, Urine Bacteria Few, Urine Mucus FewH Height (Feet): 5 Height (Inches): 9.00 Weight (Pounds): 160 Objective Physical Exam General Appearance: A+O x3, NAD HEENT: normocephalic, atraumatic Neck: non-tender, normal alignment Respiratory/Chest: chest wall non-tender, lungs clear Cardiovascular/Chest: normal peripheral pulses, normal rate Abdomen: normal bowel sounds, non tender Extremities: normal range of motion Guy Salazar MD Jul 06, 2018 20:25
[2018-07-06] MEDS: Folic Acid 1 MG, Magnesium Sulfate 2,000 MG, Multivitamin - 12 Injection 10 ML in Sodiu... IV SCH (22:36)
[2018-07-06] MEDS: Thiamine 100mg in D5W 55ml IVPB SCH (22:36)
[2018-07-07] VITALS: BP 120/84
[2018-07-07 04:00] VITALS: BP 128/90
[2018-07-07] MEDS: Piperacillin/Tazobactam 3.375 GM in D5W 110 ML IVPB SCH ×3 (05:06→21:26)
--- NOTE | 2018-07-07 07:40 | NUR ---
NURSE NOTES: received pt from MY, RN, pt was sleeping, alertx1, slurred speech, will monitor closely.
--- NOTE | 2018-07-07 07:51 | NUR ---
HAND-OFF: Report given to JAVIER Grace. Plan of care endorsed.
[2018-07-07 07:58] LABS: MEAN CORPUSCULAR VOLUME 103 FL (80-99); PLATELET COUNT 145 K/UL (150-450); RED BLOOD COUNT 4.13 M/UL (4.70-6.10); RED CELL DISTRIBUTION WIDTH 10.8 % (11.6-14.8); WHITE BLOOD COUNT 16.7 K/UL (4.8-10.8)
[2018-07-07 07:59] LABS: HEMATOCRIT 42.9 % (42.0-52.0)
[2018-07-07 08:00] VITALS: BP 126/86
[2018-07-07 08:09] LABS: ANION GAP 10 mmol/L (5-15); BLOOD UREA NITROGEN 14 mg/dL (7-18); CALCIUM 8.3 MG/DL (8.5-10.1); CARBON DIOXIDE 21 MMOL/L (21-32); CHLORIDE 101 MMOL/L (98-107); CREATININE 1.1 MG/DL (0.55-1.30); POTASSIUM 3.5 MMOL/L (3.5-5.1); SODIUM 131 MMOL/L (136-145)
[2018-07-07] MEDS: Heparin 5000 units/ml inj SUBQ SCH ×2 (09:00→19:57)
[2018-07-07] MEDS: chlordiazePOXIDE 25mg Cap ORAL SCH ×6 (09:00→21:26)
[2018-07-07] MEDS: Pantoprazole Inj IVP SCH (09:17)
--- NOTE | 2018-07-07 09:30 | NUR ---
NURSE NOTES: pt was unable to administer 9 o'clock med due to no swallow
--- NOTE | 2018-07-07 11:05 | General Progress Note ---
Assessment/Plan Status: stable Assessment/Plan #Sepsis #Aspiration pneumonia - tachycardia with HR 110 with WBC 18, concerns for aspiration pneumonia - zosyn - bcx x 2 - cxr neg acute - ua neg - fluids #Alcohol Pancreatitis #Intractable abdominal pain #intractable nausea/vomiting #Transaminitis #Alcohol Hepatitis #Alcohol withdrawals #Fatty Liver Disease - LFTs 446/532 - Lipase 687 - due to alcohol abuse - INR 1.0 - discriminant function, 4.5 , no need for steroids - US abd completed and reviewed, showing fatty liver disease. GS present, no obstruction noted. neg vickers's sign - ppi - PRN antiemetics, zofran prn - Banana bag - close lab monitoring - IVF - CIWA, requiring ativan - increased librium dosing - monitor carefully for withdrawals - not tolerating diet, give d5ns and a bolus of NS - check CMP again today Alcohol Abuse - educated on cessation for 15 mins - patient states he understands and will try to quit - RN notified to monitor carefully with withdrawals - prn ativan - ciwa - started librium, increased frequency today Uncontrolled HTN - clonidine 0.1 mg po prn - start amlodipine 10mg qday Tobacco abuse - smokes 1ppd - educated on smoking cessation for over 15 mins, states he understands the risks of smoking and will try to quit diet: NPO DVT Prophylaxis: SCD, HSQ Code Status: Full Hospital Classification Declaration: Based on this initial evaluation, and depending on the patient's clinical course, I anticipate that this patient will require hospitalization for 2-3days for alcohol abuse, pancreatitis and close respiratory/hemodynamic monitoring. I have reviewed all labs, imaging and medications Disposition: Once the patient is stable to leave the hospital, I anticipate the patient will likely be discharged to the following environment: home I spent over 50 minutes on this patient's case, and over 50% of that time was spent on counseling and/or care . Discussed with patient/family, nursing staff , SW/CM regarding clinical status, treatment course, and disposition planning. Time of note may not reflect time of encounter. ------- Date of Discussion: 07/03/18 A uwhm-he-ikvw discussion with the patient regarding the patient's advanced care planning took place during this hospitalization on the above date. The discussion included the explanation and discussion of advance directives and associated forms/documents, as well as the patient's current code status. We also discussed at length the patient's medical conditions (both acute and chronic), general prognosis, treatment options, and goals of care. The following summarizes the discussion: Advance Care Planning/Goals of Care: - Will attempt to fill out an AD and/or POLST with the patient prior to discharge, if not already completed - Continue current evaluation and management of any acute and chronic medical issues - Will continue to support the patient/family - Will continue to discuss both short- and long-term goals of care DPOA-HC/Surrogate Decision Maker: : Bonnie Crenshaw Code Status: Full Code AD Forms/Documents Completed: Deferred A total of 34 minutes was spent on this discussion, including counseling, answering questions, and completing, if any, pertinent advanced care planning forms/documents. Subjective Date patient seen: Jul 07, 2018 Time patient seen: 11:01 Allergies: Coded Allergies: No Known Allergies (Unverified , 06/01/16) Subjective f/u pancreatitis, alcoholic hepatitis, nausea, alcohol abuse still having a difficult time taking in diet, on liquid diet at the moment still with severe abdominal pain and nausea, has nonbloody vomit overnight states pain medications help feels better with librium and ativan denies fevers but admits to chills denies diarrhea/constipation but still has epigastric burning pain ROS: 14 point ROS negative except for the above Objective Last 24 Hour Vital Signs Date Time Temp Pulse Resp B/P (MAP) Pulse Ox O2 Delivery O2 Flow Rate FiO2 07/07/18 07:46 Nasal Cannula 2.0 07/07/18 04:00 99.5 114 19 128/90 (103) 97 07/07/18 00:00 98.7 120 19 120/84 (96) 96 07/06/18 21:00 Room Air 07/06/18 20:00 99.7 125 20 163/97 (119) 97 07/06/18 16:00 98.7 109 19 141/98 (112) 94 07/06/18 12:00 99.8 116 20 132/96 (108) 95 Intake and Output 07/06/18 07/07/18 19:00 07:00 Intake Total 681 ml 245 ml Output Total 400 ml 350 ml Balance 281 ml -105 ml Intake Oral 681 ml 245 ml Output Urine Total 400 ml 350 ml # Voids 1 2 Laboratory Tests 07/06/18 11:30: Urine Color Brown, Urine Appearance Slightly cloudy, Urine pH 5, Urine Specific [place] 1.025, Urine Protein 3+H, Urine Glucose (UA) Negative, Urine Ketones Negative, Urine Blood 2+H, Urine Nitrite Negative, Urine Bilirubin 2+H, Urine Ictotest Negative, Urine Urobilinogen 12H, Urine Leukocyte Esterase 1+H, Urine RBC 2-4H, Urine WBC 2-4, Urine Squamous Epithelial Cells ModerateH, Urine Bacteria Few, Urine Mucus FewH 07/07/18 06:55: White Blood Count 16.7H, Red Blood Count 4.13L, Hemoglobin 15.0, Hematocrit 42.9 , Mean Corpuscular Volume 103H, Mean Corpuscular Hemoglobin 36.3H, Mean Corpuscular Hemoglobin Concent 35.4, Red Cell Distribution Width 10.8L, Platelet Count 145L, Mean Platelet Volume 7.2, Neutrophils (%) (Auto) , Lymphocytes (%) (Auto) , Monocytes (%) (Auto) , Eosinophils (%) (Auto) , Basophils (%) (Auto) , Neutrophils % (Manual) [Pending], Lymphocytes % (Manual) [Pending], Platelet Estimate [Pending], Platelet Morphology [Pending], Sodium Level 131L, Potassium Level 3.5, Chloride Level 101, Carbon Dioxide Level 21, Anion Gap 10, Blood Urea Nitrogen 14, Creatinine 1.1, Estimat Glomerular Filtration Rate > 60, Glucose Level 110H, Calcium Level 8.3L Height (Feet): 5 Height (Inches): 9.00 Weight (Pounds): 160 Objective General Appearance: WD/WN, alert, mild distress Lines, tubes and drains: peripheral HEENT: normocephalic, atraumatic, anicteric, PERRL, other - dry mucous membrane Neck: non-tender, normal alignment Respiratory/Chest: chest wall non-tender, lungs clear, normal breath sounds, no respiratory distress, no accessory muscle use Cardiovascular/Chest: normal peripheral pulses, normal rate, regular rhythm Abdomen: normal bowel sounds, soft, no organomegaly, no mass, other - mild epigastric ttp Extremities: normal range of motion, non-tender, normal inspection, no calf tenderness, normal capillary refill, non-pitting. +asterixis Skin Exam: normal pigmentation, warm/dry Neurologic: no motor/sensory deficits, alert, oriented x 3, responsive, normal mood/affect Eulogio Siddiqi MD Jul 07, 2018 11:05
--- NOTE | 2018-07-07 11:15 | NUR ---
CASE MANAGEMENT: REVIEW 07/07/2018 SI: HYPERGLYCEMIA . T 98.1 HR 128 RR 19 B/P 126/86 SATS 100% ON 2L/NC WBC 16.7 NA 131 GLU 110 CA 8.3 IS: LANTUS 32UNITS SUBQ Q24HR NOVOLOG 8UNITS SUBQ TIAC ZOSYN IV Q8HR LYRICA PO BID NS IVF @100 ML/HR MED/SURG STATUS DCP: PATIENT IS FROM HOME
[2018-07-07 11:21] LABS: ALANINE AMINOTRANSFERASE 162 U/L (12-78); ALBUMIN 2.7 G/DL (3.4-5.0); ALBUMIN/GLOBULIN RATIO 0.6 (1.0-2.7); ALKALINE PHOSPHATASE 95 U/L (46-116); ANION GAP 13 mmol/L (5-15); ASPARTATE AMINO TRANSFERASE 92 U/L (15-37); BILIRUBIN,TOTAL 1.9 MG/DL (0.2-1.0); BLOOD UREA NITROGEN 15 mg/dL (7-18); CALCIUM 8.6 MG/DL (8.5-10.1); CARBON DIOXIDE 19 MMOL/L (21-32); CHLORIDE 100 MMOL/L (98-107); CREATININE 1.2 MG/DL (0.55-1.30); POTASSIUM 3.5 MMOL/L (3.5-5.1); SODIUM 132 MMOL/L (136-145)
[2018-07-07 11:29] LABS: BILIRUBIN,DIRECT 1.1 MG/DL (0.0-0.3)
[2018-07-07 12:00] VITALS: BP 137/95
[2018-07-07 16:00] VITALS: BP 128/72
--- NOTE | 2018-07-07 17:46 | NUR ---
NURSE NOTES: unable to administer Librium because pt was unable to swallow med.
--- NOTE | 2018-07-07 19:24 | NUR ---
HAND-OFF: Report given to JAVIER Muñoz. Pt was stable condition.
--- NOTE | 2018-07-07 19:30 | NUR ---
NURSE NOTES: Pt lying in bed w/bed in lowest position and call light within reach. Pt A&Ox1, VSS, and in no apparent distress; pt somewhat lethargic and confused. IV sites intact/asymptomatic & H/L'd and skin intact. Will continue to monitor.
[2018-07-07] MEDS ORDERED: NS 500ML ONE (19:53)
[2018-07-07] MEDS ORDERED: Tubing IV Secondary IV ONE (19:53)
[2018-07-07 20:30] VITALS: BP 149/91
[2018-07-07] MEDS: Folic Acid 1 MG, Magnesium Sulfate 2,000 MG, Multivitamin - 12 Injection 10 ML in Sodiu... IV SCH (22:17)
[2018-07-07] MEDS: Thiamine 100mg in D5W 55ml IVPB SCH (22:17)
[2018-07-08] VITALS: BP 135/96
--- NOTE | 2018-07-08 03:30 | NUR ---
NURSE NOTES: Patient's sister called to give some more history on pt, but info she provided already in chart. Will endorse to oncoming nurse.
[2018-07-08 04:00] VITALS: BP 148/88
[2018-07-08] MEDS: Piperacillin/Tazobactam 3.375 GM in D5W 110 ML IVPB SCH ×3 (05:02→21:32)
--- NOTE | 2018-07-08 07:29 | NUR ---
HAND-OFF: Report given to Yudy Kumar RN.
[2018-07-08 08:00] VITALS: BP 130/84
--- NOTE | 2018-07-08 08:00 | NUR ---
NURSE NOTES: Received report from JAVIER Urban. Rounding done with outgoing nurse. Patient asleep. Condom catheter is in placed. Call light within reach and will continue to monitor.
[2018-07-08] MEDS: Pantoprazole Inj IVP SCH (08:55)
[2018-07-08] MEDS: chlordiazePOXIDE 25mg Cap ORAL SCH ×4 (08:55→21:07)
[2018-07-08] MEDS: Heparin 5000 units/ml inj SUBQ SCH ×2 (09:00→21:07)
[2018-07-08] MEDS: Morphine Sulfate 4mg/ml Inj (IV USE ONLY) IVP PRN (09:05)
--- NOTE | 2018-07-08 09:48 | General Progress Note ---
Assessment/Plan Assessment/Plan #Sepsis #Aspiration pneumonia - tachycardia with HR 110 with WBC 18, concerns for aspiration pneumonia - zosyn - bcx x 2 - cxr neg acute - ua neg - fluids - pending AM labs - improving slowly #Alcohol Pancreatitis #Intractable abdominal pain #intractable nausea/vomiting #Transaminitis #Alcohol Hepatitis #Alcohol withdrawals #Fatty Liver Disease - LFTs 446/532 - Lipase 687 - due to alcohol abuse - INR 1.0 - discriminant function, 4.5 , no need for steroids - US abd completed and reviewed, showing fatty liver disease. GS present, no obstruction noted. neg vickers's sign - ppi - PRN antiemetics, zofran prn - Banana bag - close lab monitoring - IVF - CIWA, requiring ativan - increased librium dosing - monitor carefully for withdrawals - not tolerating diet, give d5ns and a bolus of NS - check CMP again today Alcohol Abuse - educated on cessation for 15 mins - patient states he understands and will try to quit - RN notified to monitor carefully with withdrawals - prn ativan - ciwa - started librium, increased frequency today Uncontrolled HTN - clonidine 0.1 mg po prn - start amlodipine 10mg qday Tobacco abuse - smokes 1ppd - educated on smoking cessation for over 15 mins, states he understands the risks of smoking and will try to quit diet: NPO DVT Prophylaxis: SCD, HSQ Code Status: Full Hospital Classification Declaration: Based on this initial evaluation, and depending on the patient's clinical course, I anticipate that this patient will require hospitalization for 2-3days for alcohol abuse, pancreatitis and close respiratory/hemodynamic monitoring. I have reviewed all labs, imaging and medications Disposition: Once the patient is stable to leave the hospital, I anticipate the patient will likely be discharged to the following environment: home I spent over 50 minutes on this patient's case, and over 50% of that time was spent on counseling and/or care . Discussed with patient/family, nursing staff , BUTCH/URSULA regarding clinical status, treatment course, and disposition planning. Time of note may not reflect time of encounter. ------- Date of Discussion: 07/03/18 A skla-ad-wind discussion with the patient regarding the patient's advanced care planning took place during this hospitalization on the above date. The discussion included the explanation and discussion of advance directives and associated forms/documents, as well as the patient's current code status. We also discussed at length the patient's medical conditions (both acute and chronic), general prognosis, treatment options, and goals of care. The following summarizes the discussion: Advance Care Planning/Goals of Care: - Will attempt to fill out an AD and/or POLST with the patient prior to discharge, if not already completed - Continue current evaluation and management of any acute and chronic medical issues - Will continue to support the patient/family - Will continue to discuss both short- and long-term goals of care DPOA-HC/Surrogate Decision Maker: : Bonnie Crenshaw Code Status: Full Code AD Forms/Documents Completed: Deferred A total of 34 minutes was spent on this discussion, including counseling, answering questions, and completing, if any, pertinent advanced care planning forms/documents. Subjective Date patient seen: Jul 08, 2018 Time patient seen: 09:46 Allergies: Coded Allergies: No Known Allergies (Unverified , 06/01/16) Subjective f/u pancreatitis, alcoholic hepatitis, nausea, alcohol abuse, alcohol withdrawals no diarrhea/constipation pending AM Labs no fevers/chills feels shaky and very weak pending PT eval nausea improving slightly, still having occasional vomiting episodes. not eating much, tried liquid diet yesterday encouraged to inc diet intake today ROS: 14 point ROS negative except for the above Objective Last 24 Hour Vital Signs Date Time Temp Pulse Resp B/P (MAP) Pulse Ox O2 Delivery O2 Flow Rate FiO2 07/08/18 08:56 107 130/84 07/08/18 08:00 100.0 107 19 130/84 (99) 95 07/08/18 04:00 98.5 111 20 148/88 (108) 95 07/08/18 00:00 98.1 109 20 135/96 (109) 96 07/07/18 21:00 Room Air 07/07/18 20:30 98.5 117 18 149/91 (110) 96 07/07/18 16:00 99.3 105 18 128/72 (90) 100 07/07/18 13:41 99.9 07/07/18 12:00 100.8 122 20 137/95 (109) 100 Intake and Output 07/07/18 07/08/18 19:00 07:00 Intake Total 120 ml 1223.5 ml Output Total 475 ml Balance -355 ml 1223.5 ml Intake Oral 120 ml IV Total 1223.5 ml Output Urine Total 475 ml # Voids 3 Height (Feet): 5 Height (Inches): 9.00 Weight (Pounds): 160 Objective General Appearance: WD/WN, alert, mild distress Lines, tubes and drains: peripheral HEENT: normocephalic, atraumatic, anicteric, PERRL, other - dry mucous membrane Neck: non-tender, normal alignment Respiratory/Chest: chest wall non-tender, lungs clear, normal breath sounds, no respiratory distress, no accessory muscle use Cardiovascular/Chest: normal peripheral pulses, normal rate, regular rhythm Abdomen: normal bowel sounds, soft, no organomegaly, no mass, other - mild epigastric ttp Extremities: normal range of motion, non-tender, normal inspection, no calf tenderness, normal capillary refill, non-pitting. +asterixis Skin Exam: normal pigmentation, warm/dry Neurologic: no motor/sensory deficits, alert, oriented x 3, responsive, normal mood/affect Eulogio Siddiqi MD Jul 08, 2018 09:48
[2018-07-08 10:52] LABS: HEMATOCRIT 41.3 % (42.0-52.0); HEMOGLOBIN 14.6 G/DL (14.2-18.0); MEAN CORPUSCULAR VOLUME 104 FL (80-99); PLATELET COUNT 195 K/UL (150-450); RED BLOOD COUNT 3.98 M/UL (4.70-6.10); RED CELL DISTRIBUTION WIDTH 10.6 % (11.6-14.8); WHITE BLOOD COUNT 17.1 K/UL (4.8-10.8)
--- NOTE | 2018-07-08 10:55 | NUR ---
CASE MANAGEMENT: REVIEW 07/08/2018 SI: HYPERGLYCEMIA . T 100 HR 107 RR 19 B/P 130/84 SATS 95% ON RA AML PENDING IS: LANTUS 32UNITS SUBQ Q24HR NOVOLOG 8UNITS SUBQ TIAC ZOSYN IV Q8HR LYRICA PO BID NS IVF @100 ML/HR MED/SURG STATUS DCP: PATIENT IS FROM HOME
[2018-07-08 11:39] LABS: ALANINE AMINOTRANSFERASE 106 U/L (12-78); ALBUMIN 2.4 G/DL (3.4-5.0); ALBUMIN/GLOBULIN RATIO 0.5 (1.0-2.7); ALKALINE PHOSPHATASE 100 U/L (46-116); ANION GAP 12 mmol/L (5-15); ASPARTATE AMINO TRANSFERASE 68 U/L (15-37); BILIRUBIN,TOTAL 1.7 MG/DL (0.2-1.0); BLOOD UREA NITROGEN 10 mg/dL (7-18); CALCIUM 8.6 MG/DL (8.5-10.1); CARBON DIOXIDE 22 MMOL/L (21-32); CHLORIDE 102 MMOL/L (98-107); CREATININE 0.9 MG/DL (0.55-1.30); POTASSIUM 3.3 MMOL/L (3.5-5.1); SODIUM 135 MMOL/L (136-145)
[2018-07-08 11:42] LABS: BILIRUBIN,DIRECT 1.2 MG/DL (0.0-0.3)
[2018-07-08 12:00] VITALS: BP 125/81
[2018-07-08 16:00] VITALS: BP 138/91
--- NOTE | 2018-07-08 19:32 | NUR ---
HAND-OFF: Report given to JAVIER De La Cruz.
[2018-07-08 20:00] VITALS: BP 140/90
[2018-07-08] MEDS: Thiamine 100mg in D5W 55ml IVPB SCH (21:08)
[2018-07-08] MEDS: Folic Acid 1 MG, Magnesium Sulfate 2,000 MG, Multivitamin - 12 Injection 10 ML in Sodiu... IV SCH (21:31)
[2018-07-09] VITALS: BP 117/79
[2018-07-09 04:00] VITALS: BP 129/88
[2018-07-09] MEDS: Morphine Sulfate 4mg/ml Inj (IV USE ONLY) IVP PRN (04:42)
[2018-07-09] MEDS: Piperacillin/Tazobactam 3.375 GM in D5W 110 ML IVPB SCH ×3 (04:45→20:46)
[2018-07-09 05:52] LABS: HEMATOCRIT 38.8 % (42.0-52.0); HEMOGLOBIN 13.6 G/DL (14.2-18.0); MEAN CORPUSCULAR VOLUME 104 FL (80-99); PLATELET COUNT 218 K/UL (150-450); RED BLOOD COUNT 3.72 M/UL (4.70-6.10); RED CELL DISTRIBUTION WIDTH 10.8 % (11.6-14.8); WHITE BLOOD COUNT 16.3 K/UL (4.8-10.8)
[2018-07-09 06:16] LABS: ALANINE AMINOTRANSFERASE 103 U/L (12-78); ALBUMIN 2.3 G/DL (3.4-5.0); ALBUMIN/GLOBULIN RATIO 0.5 (1.0-2.7); ALKALINE PHOSPHATASE 106 U/L (46-116); ANION GAP 11 mmol/L (5-15); ASPARTATE AMINO TRANSFERASE 88 U/L (15-37); BILIRUBIN,TOTAL 1.4 MG/DL (0.2-1.0); BLOOD UREA NITROGEN 12 mg/dL (7-18); CALCIUM 8.7 MG/DL (8.5-10.1); CARBON DIOXIDE 22 MMOL/L (21-32); CHLORIDE 103 MMOL/L (98-107); CREATININE 0.8 MG/DL (0.55-1.30); POTASSIUM 3.3 MMOL/L (3.5-5.1); SODIUM 136 MMOL/L (136-145)
[2018-07-09 07:05] LABS: BILIRUBIN,DIRECT 0.8 MG/DL (0.0-0.3)
--- NOTE | 2018-07-09 07:30 | NUR ---
HAND OFF TO DAVID KENNEY RN
--- NOTE | 2018-07-09 07:48 | NUR ---
NURSE NOTES: Received report from JAVIER De La Cruz. Patient a/o x1-2 and confused. IV patent and no respiratory distress noted. Denies any pain at this time. Bed in lowest position and call light within reach. Will continue to monitor.
[2018-07-09 08:00] VITALS: BP 129/87
[2018-07-09] MEDS: chlordiazePOXIDE 25mg Cap ORAL SCH ×4 (08:41→20:46)
[2018-07-09] MEDS: Pantoprazole Inj IVP SCH (08:41)
[2018-07-09] MEDS: Heparin 5000 units/ml inj SUBQ SCH ×2 (08:43→20:46)
--- NOTE | 2018-07-09 09:05 | NUR ---
NURSE NOTES: K+ 3.[address] Siddiqi notified. ordered kcl 40 meq po one time. Noted and carried out.
--- NOTE | 2018-07-09 10:54 | General Progress Note ---
Assessment/Plan Status: stable Assessment/Plan #Sepsis #Aspiration pneumonia - tachycardia with HR 110 with WBC 18, concerns for aspiration pneumonia - zosyn - improving - bcx x 2 ngtd - cxr neg acute - ua neg - fluids - improving slowly #Alcohol Pancreatitis #Intractable abdominal pain #intractable nausea/vomiting #Transaminitis #Alcohol Hepatitis #Alcohol withdrawals #Fatty Liver Disease - LFTs 446/532 - Lipase 687 - due to alcohol abuse - INR 1.0 - discriminant function, 4.5 , no need for steroids - US abd completed and reviewed, showing fatty liver disease. GS present, no obstruction noted. neg vickers's sign - ppi - PRN antiemetics, zofran prn - Banana bag - close lab monitoring - IVF - CIWA, requiring ativan - increased librium dosing - monitor carefully for withdrawals Alcohol Abuse - educated on cessation for 15 mins - patient states he understands and will try to quit - RN notified to monitor carefully with withdrawals - prn ativan - ciwa - started librium, increased frequency today Uncontrolled HTN - clonidine 0.1 mg po prn - start amlodipine 10mg qday Tobacco abuse - smokes 1ppd - educated on smoking cessation for over 15 mins, states he understands the risks of smoking and will try to quit diet: NPO DVT Prophylaxis: SCD, HSQ Code Status: Full Hospital Classification Declaration: Based on this initial evaluation, and depending on the patient's clinical course, I anticipate that this patient will require hospitalization for 2-3days for alcohol abuse, pancreatitis and close respiratory/hemodynamic monitoring. I have reviewed all labs, imaging and medications Disposition: Once the patient is stable to leave the hospital, I anticipate the patient will likely be discharged to the following environment: home I spent over 50 minutes on this patient's case, and over 50% of that time was spent on counseling and/or care . Discussed with patient/family, nursing staff , SW/CM regarding clinical status, treatment course, and disposition planning. Time of note may not reflect time of encounter. ------- Date of Discussion: 07/03/18 A exbm-wb-wozr discussion with the patient regarding the patient's advanced care planning took place during this hospitalization on the above date. The discussion included the explanation and discussion of advance directives and associated forms/documents, as well as the patient's current code status. We also discussed at length the patient's medical conditions (both acute and chronic), general prognosis, treatment options, and goals of care. The following summarizes the discussion: Advance Care Planning/Goals of Care: - Will attempt to fill out an AD and/or POLST with the patient prior to discharge, if not already completed - Continue current evaluation and management of any acute and chronic medical issues - Will continue to support the patient/family - Will continue to discuss both short- and long-term goals of care DPOA-HC/Surrogate Decision Maker: : Bonnie Crenshaw Code Status: Full Code AD Forms/Documents Completed: Deferred A total of 34 minutes was spent on this discussion, including counseling, answering questions, and completing, if any, pertinent advanced care planning forms/documents. Subjective Date patient seen: Jul 09, 2018 Time patient seen: 10:52 Allergies: Coded Allergies: No Known Allergies (Unverified , 06/01/16) Subjective f/u pancreatitis, alcoholic hepatitis, nausea, alcohol abuse, alcohol withdrawals no diarrhea/constipation no fevers/chills feels shaky and very weak pending PT eval still nauseous, very lethargic today, did not drink much fluid yesterday due to mental status encouraged to inc diet intake today ROS: 14 point ROS negative except for the above Objective Last 24 Hour Vital Signs Date Time Temp Pulse Resp B/P (MAP) Pulse Ox O2 Delivery O2 Flow Rate FiO2 07/09/18 08:41 101 129/87 07/09/18 08:00 97.8 101 20 129/87 (101) 94 07/09/18 04:42 99.1 07/09/18 04:00 99.0 99 20 129/88 (102) 95 07/09/18 00:00 99.1 92 20 117/79 (92) 95 07/08/18 21:00 Room Air 07/08/18 20:00 98.9 109 20 140/90 (107) 99 07/08/18 16:00 98.0 109 19 138/91 (107) 99 07/08/18 12:00 97.7 104 20 125/81 (96) 98 Intake and Output 07/08/18 07/09/18 19:00 07:00 Intake Total 200 ml 1210.0 ml Output Total 600 ml 425 ml Balance -400 ml 785.0 ml Intake Oral 200 ml 240 ml IV Total 970.0 ml Output Urine Total 600 ml 425 ml # Voids 2 Laboratory Tests 07/09/18 04:55: White Blood Count 16.3H, Red Blood Count 3.72L, Hemoglobin 13.6L, Hematocrit 38.8L, Mean Corpuscular Volume 104H, Mean Corpuscular Hemoglobin 36.5H, Mean Corpuscular Hemoglobin Concent 35.0, Red Cell Distribution Width 10.8L, Platelet Count 218, Mean Platelet Volume 6.6, Neutrophils (%) (Auto) , Lymphocytes (%) (Auto) , Monocytes (%) (Auto) , Eosinophils (%) (Auto) , Basophils (%) (Auto) , Differential Total Cells Counted 100, Neutrophils % ( Manual) 91H, Lymphocytes % (Manual) 2L, Monocytes % (Manual) 7, Eosinophils % ( Manual) 0, Basophils % (Manual) 0, Band Neutrophils 0, Platelet Estimate Adequate, Platelet Morphology Normal, Macrocytosis 1+, Sodium Level 136, Potassium Level 3.3L, Chloride Level 103, Carbon Dioxide Level 22, Anion Gap 11 , Blood Urea Nitrogen 12, Creatinine 0.8, Estimat Glomerular Filtration Rate > 60, Glucose Level 97, Calcium Level 8.7, Total Bilirubin 1.4H, Direct Bilirubin 0.8H, Aspartate Amino Transf (AST/SGOT) 88H, Alanine Aminotransferase (ALT/SGPT ) 103H, Alkaline Phosphatase 106, Total Protein 7.4, Albumin 2.3L, Globulin 5.1 , Albumin/Globulin Ratio 0.5L Height (Feet): 5 Height (Inches): 9.00 Weight (Pounds): 160 Objective General Appearance: WD/WN, alert, mild distress Lines, tubes and drains: peripheral HEENT: normocephalic, atraumatic, anicteric, PERRL, other - dry mucous membrane Neck: non-tender, normal alignment Respiratory/Chest: chest wall non-tender, lungs clear, normal breath sounds, no respiratory distress, no accessory muscle use Cardiovascular/Chest: normal peripheral pulses, normal rate, regular rhythm Abdomen: normal bowel sounds, soft, no organomegaly, no mass, other - mild epigastric ttp Extremities: normal range of motion, non-tender, normal inspection, no calf tenderness, normal capillary refill, non-pitting. +asterixis Skin Exam: normal pigmentation, warm/dry Neurologic: no motor/sensory deficits, alert, oriented x 3, responsive, normal mood/affect Eulogio Siddiqi MD Jul 09, 2018 10:54
[2018-07-09 12:00] VITALS: BP 126/79
--- NOTE | 2018-07-09 14:18 | NUR ---
PHLEBOTOMY SERVICES REPRESENTATIVEPRODUCT APPLICATIONS ENGINEER SI: ALCOHOLIC PANCREATITIS T. 97.9 HR 106 RR 18 B/P 126/79 WBC 16.3 K 3.3 IS: IVF D5KCL @ 150ML/HR ZOSYN IV THIAMINE IV MED/SURG STATUS
--- NOTE | 2018-07-09 15:20 | NUR ---
NURSE NOTES: PO2 91% checked. Dr. Siddiqi notified and said no O2 treatment for the patient. Will continue to monitor.
[2018-07-09 16:00] VITALS: BP 135/88
--- NOTE | 2018-07-09 16:26 | NUR ---
CHARGE NURSE NOTE: Pt is hot to touch, redness of the face noted. Temp.99.7F. Resp. rate 22, [id number]%,heart rate 107bpm bp135/88. notified. Abdominal ultrasound ordered for 07/10/18. Pt will be on NPO after midnight.Primary RN will give him Tylenol.
--- NOTE | 2018-07-09 17:00 | NUR ---
NURSE NOTES: Patient stat "I need cigarette. I want to smoke." Dr. Siddiqi notified and ordered Nicotine patch 14mg. Noted and carried out.
--- NOTE | 2018-07-09 19:43 | NUR ---
HAND-OFF: Report given to JAVIER Urban.
[2018-07-09 20:00] VITALS: BP 131/88
[2018-07-09] MEDS: Thiamine 100mg in D5W 55ml IVPB SCH (20:45)
--- NOTE | 2018-07-09 20:45 | NUR ---
NURSE NOTES: Pt lying in bed w/bed in lowest position and call light within reach. Pt A&Ox1, VSS, and in no apparent distress at this time. IV sites intact/asymptomatic w/IVF @ 150 ml/hr; condom cath in place; and skin intact. Will continue to monitor.
[2018-07-10 00:12] VITALS: BP 135/82
[2018-07-10 04:05] VITALS: BP 134/89
[2018-07-10] MEDS: Piperacillin/Tazobactam 3.375 GM in D5W 110 ML IVPB SCH ×3 (05:00→21:44)
--- NOTE | 2018-07-10 07:29 | NUR ---
HAND-OFF: Report given to JAVIER Garcia.
--- NOTE | 2018-07-10 07:45 | NUR ---
NURSE NOTES: WALKING ROUNDS DONE WITH OUTGOING RN.PATIENT IN BED AROUSABLE BY TACTILE STIMULI. AO X1 TO NAME. DOES NOT DISPLAY EYE CONTACT WHEN ASKED. SLOW TO RESPOND TO QUESTIONS. DISCUSSED PLAN OF CARE FOR THE DAY. BED IN LOW AND LOCKED POSITION. BED ALARM ACTIVATED.CALL LIGHT WITHIN REACH. MD TO SEE PATIENT THIS A.M.
--- NOTE | 2018-07-10 07:54 | General Progress Note ---
Assessment/Plan Status: stable Assessment/Plan #Sepsis #Aspiration pneumonia - tachycardia with HR 110 with WBC 18, concerns for aspiration pneumonia - zosyn - improving - bcx x 2 ngtd - pending AM labs - cxr neg acute - ua neg - fluids #Acute Metabolic Encephalopathy - due to sepsis vs alcohol withdrawals - cont to monitor withdrawals and cont abx - pending AM labs - fluids #Alcohol Pancreatitis #Intractable abdominal pain #intractable nausea/vomiting #Transaminitis #Alcohol Hepatitis #Alcohol withdrawals #Fatty Liver Disease - LFTs 446/532 - Lipase 687 - due to alcohol abuse - INR 1.0 - discriminant function, 4.5 , no need for steroids - US abd completed and reviewed, showing fatty liver disease. GS present, no obstruction noted. neg vickers's sign - ppi - PRN antiemetics, zofran prn - Banana bag - close lab monitoring - IVF - CIWA, requiring ativan - increased librium dosing - monitor carefully for withdrawals #Failure to thrive - due to alcohol withdrawals - alcoholic pancreatitis - pending CT abd/pelvis - fluids - poor PO intake - folder tier consult #Alcohol Abuse - educated on cessation for 15 mins - patient states he understands and will try to quit - RN notified to monitor carefully with withdrawals - prn ativan - ciwa - started librium, increased frequency today #Uncontrolled HTN - clonidine 0.1 mg po prn - amlodipine 10mg qday - due to withdrawals #Tobacco abuse - smokes 1ppd - educated on smoking cessation for over 15 mins, states he understands the risks of smoking and will try to quit diet: NPO DVT Prophylaxis: SCD, HSQ Code Status: Full Hospital Classification Declaration: Based on this initial evaluation, and depending on the patient's clinical course, I anticipate that this patient will require hospitalization for 2-3days for alcohol abuse, pancreatitis and close respiratory/hemodynamic monitoring. I have reviewed all labs, imaging and medications Disposition: Once the patient is stable to leave the hospital, I anticipate the patient will likely be discharged to the following environment: home I spent over 50 minutes on this patient's case, and over 50% of that time was spent on counseling and/or care . Discussed with patient/family, nursing staff , SW/CM regarding clinical status, treatment course, and disposition planning. Time of note may not reflect time of encounter. ------- Date of Discussion: 07/03/18 A [id number] discussion with the patient regarding the patient's advanced care planning took place during this hospitalization on the above date. The discussion included the explanation and discussion of advance directives and associated forms/documents, as well as the patient's current code status. We also discussed at length the patient's medical conditions (both acute and chronic), general prognosis, treatment options, and goals of care. The following summarizes the discussion: Advance Care Planning/Goals of Care: - Will attempt to fill out an AD and/or POLST with the patient prior to discharge, if not already completed - Continue current evaluation and management of any acute and chronic medical issues - Will continue to support the patient/family - Will continue to discuss both short- and long-term goals of care DPOA-HC/Surrogate Decision Maker: : Bonnie Crenshaw Code Status: Full Code AD Forms/Documents Completed: Deferred A total of 34 minutes was spent on this discussion, including counseling, answering questions, and completing, if any, pertinent advanced care planning forms/documents. Subjective Date patient seen: Jul 10, 2018 Time patient seen: 07:50 Allergies: Coded Allergies: No Known Allergies (Unverified , 06/01/16) Subjective f/u pancreatitis, alcoholic hepatitis, nausea, alcohol abuse, alcohol withdrawals no diarrhea/constipation no fevers/chills feels shaky and very weak pending PT eval lethargic not eating much due to abd pain/nausea/alcohol withdrawals pending CT abd today ROS: 14 point ROS negative except for the above Objective Last 24 Hour Vital Signs Date Time Temp Pulse Resp B/P (MAP) Pulse Ox O2 Delivery O2 Flow Rate FiO2 07/10/18 04:05 99.2 105 20 134/89 (104) 94 07/10/18 00:12 98.7 91 19 135/82 (99) 93 07/09/18 21:00 Room Air 07/09/18 20:00 98.9 96 18 131/88 (102) 92 07/09/18 16:00 98.9 107 18 135/88 (104) 92 07/09/18 12:00 97.9 106 18 126/79 (95) 95 07/09/18 09:00 Room Air 07/09/18 08:41 101 129/87 07/09/18 08:00 97.8 101 20 129/87 (101) 94 Intake and Output 07/09/18 07/10/18 19:00 07:00 Intake Total 1536.0 ml 1863.5 ml Output Total 1300 ml Balance 1536.0 ml 563.5 ml Intake Oral 676 ml IV Total 860.0 ml 1863.5 ml Output Urine Total 1300 ml # Voids 1 Height (Feet): 5 Height (Inches): 9.00 Weight (Pounds): 160 Objective General Appearance: WD/WN, alert, mild distress Lines, tubes and drains: peripheral HEENT: normocephalic, atraumatic, anicteric, PERRL, other - dry mucous membrane Neck: non-tender, normal alignment Respiratory/Chest: chest wall non-tender, lungs clear, normal breath sounds, no respiratory distress, no accessory muscle use Cardiovascular/Chest: normal peripheral pulses, normal rate, regular rhythm Abdomen: normal bowel sounds, soft, no organomegaly, no mass, other - mild epigastric ttp Extremities: normal range of motion, non-tender, normal inspection, no calf tenderness, normal capillary refill, non-pitting. +asterixis Skin Exam: normal pigmentation, warm/dry Neurologic: no motor/sensory deficits, alert, oriented x 3, responsive, normal mood/affect Eulogio Siddiqi MD Jul 10, 2018 07:54
[2018-07-10 08:00] VITALS: BP 126/84
--- NOTE | 2018-07-10 08:00 | NUR ---
REHAB MED PT NOTE CONSULT RECEIVED, HOWEVER PATIENT NOT APPROPRIATE FOR SKILLED PT AT THIS TIME. UPON EVAL, PATIENT LETHARGIC AND UNABLE TO FOLLOW COMMANDS. RN AWARE.
[2018-07-10 08:31] LABS: HEMATOCRIT 39.6 % (42.0-52.0); MEAN CORPUSCULAR VOLUME 104 FL (80-99); PLATELET COUNT 279 K/UL (150-450); RED BLOOD COUNT 3.81 M/UL (4.70-6.10); RED CELL DISTRIBUTION WIDTH 11.4 % (11.6-14.8); WHITE BLOOD COUNT 13.9 K/UL (4.8-10.8)
[2018-07-10 08:56] LABS: ANION GAP 12 mmol/L (5-15); BLOOD UREA NITROGEN 7 mg/dL (7-18); CALCIUM 8.7 MG/DL (8.5-10.1); CARBON DIOXIDE 20 MMOL/L (21-32); CHLORIDE 106 MMOL/L (98-107); CREATININE 0.9 MG/DL (0.55-1.30); POTASSIUM 3.3 MMOL/L (3.5-5.1); SODIUM 138 MMOL/L (136-145)
[2018-07-10 09:01] LABS: ALANINE AMINOTRANSFERASE 119 U/L (12-78); ALBUMIN 2.2 G/DL (3.4-5.0); ALBUMIN/GLOBULIN RATIO 0.4 (1.0-2.7); ALKALINE PHOSPHATASE 145 U/L (46-116); ASPARTATE AMINO TRANSFERASE 117 U/L (15-37); BILIRUBIN,TOTAL 1.2 MG/DL (0.2-1.0)
[2018-07-10 09:12] LABS: BILIRUBIN,DIRECT 0.8 MG/DL (0.0-0.3)
--- NOTE | 2018-07-10 10:30 | NUR ---
NURSE NOTES: CT ABD/PELVIS ORDERED WITH CMP AND CBC. PATIENT MORE AROUSABLE. DISPLAYS EYE CONTACT AND ABLE TO HAVE AN APPROPRIATE CONVERSATION. AOX 2-3. ASSISTED WITH ADLS. PATIENT ABLE TO BRUSH HIS TEETH WITH GUIDANCE.PATIENT C/O ABD PAIN UPON PALPATING. HAD BM X1 THIS A.M. DRANK CT CONTRAST. NO DISPLAY OF COUGHING; ABLE TO SWALLOW W/O DIFFICULTY.
[2018-07-10] MEDS: chlordiazePOXIDE 25mg Cap ORAL SCH ×4 (11:24→21:44)
[2018-07-10] MEDS: Morphine Sulfate 4mg/ml Inj (IV USE ONLY) IVP PRN ×2 (11:25→16:45)
[2018-07-10] MEDS: Heparin 5000 units/ml inj SUBQ SCH ×2 (11:26→21:45)
--- NOTE | 2018-07-10 11:33 | NUR ---
NURSE NOTES: PATIENT RETURNED FROM CT LETHARGIC AND UNABLE TO HAVE A CONVERSATION WAS PREVIOUSLY THIS A.M. OR DISPLAY ANY EYE CONTACT. NOTED CHANGE IN CONDITION. PLACED CALL TO DR. GARLAND;REPORTED FINDINGS. SUGGESTED CT HEAD TO BE DONE. ORDER RECEIVED.
[2018-07-10] MEDS ORDERED: Isovue-300 100ml vial INJ PRN (11:45)
[2018-07-10 12:00] VITALS: BP 139/88
--- NOTE | 2018-07-10 13:11 | NUR ---
HAND-OFF: Report given to LATA SERRANO RN.
--- NOTE | 2018-07-10 13:15 | NUR ---
RD ASSESSMENT & RECOMMENDATIONS SEE CARE ACTIVITY FOR COMPLETE ASSESSMENT DAILY ESTIMATED NEEDS: Needs based on Pancreatitis, 72.6kg 25-30 kcals/kg 0308-6915 total kcals 1-1.5 g protein/kg 73-109 g total protein 25-30 mL/kg 5367-9320 total fluid mLs NUTRITION DIAGNOSIS: Altered nutrition-related lab values R/T liver dysfunction, pancreatitis, clinical condition, HTN as evidenced by elev LFTs, elev T bili, Hep C antibody >11, elev lipase (687), low Na (130-> wnl), lwo K 3.3,episodes of elev BPs (174/107, 167/110). CURRENT DIET: CLEAR LIQUID PO DIET RECOMMENDATIONS: Advance diet per MD-> LOW FAT, LOW NA ADDITIONAL RECOMMENDATIONS: 1) Ensure CLEAR TID while on CLD (250 kcal each) -> add extra CLD items in b/w meals for increased kcal intake 2) Updated lipase as able 3) Monitor BGs, need for carb controlled diet, SSI - A1C 5.8 4) Calibrated bedscale wt for accurate CBW -> Obtain a standing weight as able 5) Consider TPN if unable to tolerated po via GI
--- NOTE | 2018-07-10 13:20 | NUR ---
NURSE NOTES: Received report from Radha HERRERA. Patient returned from head CT. IV running KCL per order. Patient is alert and oriented x2. No s/s acute distress. Side rails upx3, bed low and locked, call light in reach. Will continue to monitor.
--- NOTE | 2018-07-10 14:02 | Diagnostic Imaging Report ---
Indication: Altered mental status Technique: spiral acquisitions obtained through the brain. Angled axial and coronal 5 x 5 mm slices were reconstructed. No IV contrast utilized. Radiation dose was minimized using automated exposure control Total dose length product 1421.83 mGycm. CTDIvol(s) 70.38 mGy Comparison: none FINDINGS: No acute hemorrhage or edema. No mass effect or midline shift. There is age-related enlargement of the ventricles and extra axial CSF spaces. There is encephalomalacia in the right inferior frontal region. There is periventricular deep white matter ischemic change. Normal ahn-white differentiation otherwise. Visualized orbits are unremarkable. Visualized sinuses are unremarkable. Intact calvarium. IMPRESSION: Chronic and age-related changes. Negative for acute intracranial bleed or mass effect Right inferior frontal encephalomalacia, consistent with remote insult, either ischemic or traumatic The CT scanner at [facility] is accredited by the [employer] and the scans are performed using protocols designed to limit radiation exposure to as low as reasonably achievable to attain images of sufficient resolution adequate for diagnostic evaluation
[2018-07-10] MEDS ORDERED: Tubing IV Secondary IV ONE (14:32)
[2018-07-10] MEDS ORDERED: NS 275ml ONE (14:32)
--- NOTE | 2018-07-10 14:47 | NUR ---
ST NOTE: BEDSIDE SWALLOW EVAL RECEIVED BEDSIDE SWALLOW EVAL ORDER CHART REVIEWED PRIOR THE EVALUATION. PT IS A 62-YEAR-OLD MALE WHO WAS ADMITTED DUE TO ALCOHOLIC PANCREATITIS. DYSPHAGIA RISK FACTORS: ETOH, GERD, SMOKING(1PK/DAY). PER MD'S NOTE, CONCERNED ASPIRATION PNA DUE TO WBC IS HIGH. PER CXR: NO ACUTE DISEASE PER HEAD CT: Chronic and age-related changes. Negative for acute intracranial bleed or mass effect Right inferior frontal encephalomalacia, consistent with remote insult, either ischemic or traumatic PLOF: PT RESIDES AT HOME WITH FAMILY. CURRENT STATUS: PT IS ON CLEAR LIQUID DIET. PT SEEN AT BEDSIDE IN AM AND PM. PT WAS NPO IN AM FOR CT ABDOMEN FOR ABDOMINAL PAIN. SEEN AT BEDSIDE IN AM. ALERT, AND ABLE TO TOLERATE THE BARIUM(THIN LIQUIDS) VIA STRAW GOOD ORAL TRANSIT TIME TIME AND OROPHARYNGEAL TRANSIT TIME, FAIR TO GOOD LARYNGEAL ELEVATION, NO OVERT S/S OF ASPIRATION. SEEN PT IN PM TO RE-ASSESS PT'S SWALLOWING FUNCTION, PER LATA HERRERA, PT IS LESS ALERT AND UNABLE TO TOLERATE LIQUIDS AND PUREED. PT SEEMS MORE ALTERED. ORIENTED X 1(THINKS HE IS AT HOME), NO EYE TRACKING WHEN REQUESTED. GIVEN PO TRIALS: THIN(STRAW), NECTAR THICK(TSP) ONLY PER RN, PT IS HAVING DIFFICULTY WITH PUREED FOOD(APPLE SAUCE). INITIAL IMPRESSION: DECREASED LABIAL AND LINGUAL MOVEMENT AND COORDINATION. POOR LABIAL SEAL WHEN GIVEN PO TRIALS WITH TSP. MILD INCREASED ORAL TRANSIT TIME AND OROPHARYNGEAL TRANSIT TIME, FAIR TO GOOD LARYNGEAL ELEVATION, NO OVERT S/S OF ASPIRATION WITH THIN LIQUIDS. PT DID NOT INTAKE NECTAR THICK LIQUIDS. DUE TO PT'S MENTAL STATUS IS POOR, PT HAS RISK FOR ASPIRATION. RECOMMENDATIONS: 1. KEEP PT NPO FOR NOW 2. WILL RE-ASSESS PT'S SWALLOWING FUNCTION. D/W LATA HERRERA. POSTED NPO SIGN.
--- NOTE | 2018-07-10 15:43 | Diagnostic Imaging Report ---
Indication: Abdominal pain Technique: Spiral acquisitions obtained through the abdomen and pelvis. Patient given oral contrast. No IV contrast utilized, per referring physician request.. Multiplanar reconstructions were generated. Total dose length product 706.17 mGycm. CTDIvol(s) 11.86 mGy. Dose reduction achieved using automated exposure control Comparison: 04/26/2017 CT. Also abdominal ultrasound dated 07/03/2018 Findings: Interim development of marked gallbladder wall thickening and marked infiltration of the pericholecystic fat. Only questionable small gallstones are evident. Note, however, that ultrasound of 07/03/2018 did in fact demonstrate cholelithiasis. No definite biliary ductal dilatation. Lack of IV contrast limits assessment of the solid organs. The liver is grossly unremarkable. The pancreas, spleen, adrenals, kidneys are all unremarkable. No retroperitoneal or mesenteric mass or adenopathy. No pelvic mass or adenopathy. The prostate is prominent. The appendix is not definitely identified, but no findings to suggest acute appendicitis are evident. There is colonic diverticulosis. No evidence of acute diverticulitis. No small bowel distention. Ingested contrast is seen throughout the entirety of the small bowel and throughout the entirety of the colon, indicating absence of obstructive pathology. No free or loculated intraperitoneal gas or fluid is evident. Small fat-containing ventral hernias are again demonstrated. Surgical clips are seen in the region of the gastroesophageal junction Right renal cyst described on prior CT and ultrasound are not evident on this current noninfused exam. Small fat-containing ventral hernias are again demonstrated. Extensive consolidation and atelectasis is seen at the right lung base. The bones demonstrate degenerative spondylosis changes. Impression: Marked gallbladder distention, wall thickening, and infiltration of the pericholecystic fat in patient with known history of cholelithiasis. Findings are highly suspicious for acute cholecystitis. Hepatobiliary nuclear scan may be useful to confirm Colonic diverticulosis. No evidence of diverticulitis Extensive consolidation and atelectasis at the right lung base Incidental findings as noted, including small fat-containing ventral hernias, evidence prior gastroesophageal region surgery, degenerative spondylosis Findings discussed by phone with Dr. Marques at the time of interpretation The CT scanner at [facility] is accredited by the [employer] and the scans are performed using protocols designed to limit radiation exposure to as low as reasonably achievable to attain images of sufficient resolution adequate for diagnostic evaluation.
[2018-07-10 16:00] VITALS: BP 139/75
--- NOTE | 2018-07-10 16:35 | NUR ---
NURSE NOTES: Noted patient's heart rate increased. Patient appears agitated, is moaning, states he is in pain. Offered patient pain medication but he refused. Encouraged patient to deep breath, repositioned for comfort. Will continue to monitor.
--- NOTE | 2018-07-10 17:26 | NUR ---
NURSE NOTES: Patient visibly calmer now, sleeping, no s/s acute distress. HR reassessed at 106. Will continue to monitor.
--- NOTE | 2018-07-10 17:34 | NUR ---
NURSE NOTES: Administered last bag of KCL. Unable to administer last bag from prior order due to medication being hung late and order falling off, patient was unhooked from IV while in CT causing first three bags to be hung late. Will continue to monitor.
--- NOTE | 2018-07-10 18:01 | Consultation ---
History of Present Illness General Date patient seen: Jul 10, 2018 Chief Complaint: Abdominal Pain Reason for Consultation: cholecysititis Present Illness HPI 62 year old male presented with abdominal pain. +EtOH heavy history. Diagnosed with alcohol induced pancreatitis. Since admitted for care and management. Leukocytosis, fevers, abd pain. Labs noted. US on admission with cholelithiasis. CT recently performed with marked GB distention concerning for acute cholecystitis. Surgery called to evaluate. patient seen, chart reviewed, patient examined. patient currently seems to be experiencing withdrawal and only responds to pain on exam. Allergies: Coded Allergies: No Known Allergies (Unverified , 06/01/16) Medication History No Active Prescriptions or Reported Meds Patient History Limited by: medical condition History Provided By: Medical Record, PMD Healthcare decision maker Resuscitation status Full Code Advanced Directive on File Past Medical/Surgical History Past Medical/Surgical History: (1) Cholecystitis, acute (2) Abnormal LFTs (3) Alcohol abuse (4) Pancreatitis, acute (5) Alcoholic pancreatitis (6) Fatty liver (7) Hepatitis C Review of Systems ROS Narrative cannot obtain given medical condition Physical Exam General Appearance: no apparent distress, lethargic Lines, tubes and drains: peripheral HEENT: mucous membranes moist Neck: normal inspection Respiratory/Chest: normal breath sounds, no respiratory distress, no accessory muscle use Cardiovascular/Chest: normal rate, tachycardia Abdomen: normal bowel sounds, soft, distended, tender, other - palpable gallbladder in RUQ Extremities: normal inspection Skin Exam: warm/dry Neurologic: unresponsiveness Last 24 Hour Vital Signs Date Time Temp Pulse Resp B/P (MAP) Pulse Ox O2 Delivery O2 Flow Rate FiO2 07/10/18 17:24 106 22 07/10/18 17:15 100.0 07/10/18 16:00 100.0 153 24 139/75 (96) 98 07/10/18 12:00 98.6 103 20 139/88 (105) 99 07/10/18 11:24 105 126/84 07/10/18 09:00 Room Air 07/10/18 08:00 98.5 105 20 126/84 (98) 98 07/10/18 04:05 99.2 105 20 134/89 (104) 94 07/10/18 00:12 98.7 91 19 135/82 (99) 93 07/09/18 21:00 Room Air 07/09/18 20:00 98.9 96 18 131/88 (102) 92 Intake and Output 07/09/18 07/10/18 19:00 07:00 Intake Total 1536.0 ml 2041.0 ml Output Total 1300 ml Balance 1536.0 ml 741.0 ml Intake Oral 676 ml IV Total 860.0 ml 2041.0 ml Output Urine Total 1300 ml # Voids 1 Laboratory Tests Test 07/10/18 08:05 White Blood Count 13.9 K/UL (4.8-10.8) H Red Blood Count 3.81 M/UL (4.70-6.10) L Hemoglobin 14.0 G/DL (14.2-18.0) L Hematocrit 39.6 % (42.0-52.0) L Mean Corpuscular Volume 104 FL (80-99) H Mean Corpuscular Hemoglobin 36.8 PG (27.0-31.0) H Mean Corpuscular Hemoglobin Concent 35.4 G/DL (32.0-36.0) Red Cell Distribution Width 11.4 % (11.6-14.8) L Platelet Count 279 K/UL (150-450) Mean Platelet Volume 7.1 FL (6.5-10.1) Neutrophils (%) (Auto) % (45.0-75.0) Lymphocytes (%) (Auto) % (20.0-45.0) Monocytes (%) (Auto) % (1.0-10.0) Eosinophils (%) (Auto) % (0.0-3.0) Basophils (%) (Auto) % (0.0-2.0) Differential Total Cells Counted 100 Neutrophils % (Manual) 82 % (45-75) H Lymphocytes % (Manual) 6 % (20-45) L Monocytes % (Manual) 11 % (1-10) H Eosinophils % (Manual) 0 % (0-3) Basophils % (Manual) 1 % (0-2) Band Neutrophils 0 % (0-8) Platelet Estimate Adequate Platelet Morphology Normal Anisocytosis 1+ Macrocytosis 1+ Sodium Level 138 MMOL/L (136-145) Potassium Level 3.3 MMOL/L (3.5-5.1) L Chloride Level 106 MMOL/L (98-107) Carbon Dioxide Level 20 MMOL/L (21-32) L Anion Gap 12 mmol/L (5-15) Blood Urea Nitrogen 7 mg/dL (7-18) Creatinine 0.9 MG/DL (0.55-1.30) Estimat Glomerular Filtration Rate > 60 mL/min (>60) Glucose Level 135 MG/DL (74-106) H Calcium Level 8.7 MG/DL (8.5-10.1) Total Bilirubin 1.2 MG/DL (0.2-1.0) H Direct Bilirubin 0.8 MG/DL (0.0-0.3) H Aspartate Amino Transf (AST/SGOT) 117 U/L (15-37) H Alanine Aminotransferase (ALT/SGPT) 119 U/L (12-78) H Alkaline Phosphatase 145 U/L (46-116) H Total Protein 7.4 G/DL (6.4-8.2) Albumin 2.2 G/DL (3.4-5.0) L Globulin 5.2 g/dL Albumin/Globulin Ratio 0.4 (1.0-2.7) L Height (Feet): 5 Height (Inches): 9.00 Weight (Pounds): 160 Medications Current Medications Medications (Trade) Dose Ordered Sig/Mukesh Route PRN Reason Start Time Stop Time Status Last Admin Dose Admin Acetaminophen (Tylenol) 650 mg Q8H PRN ORAL Mild Pain/Temp > 100.5 07/07/18 13:00 08/06/18 12:59 07/09/18 16:27 Amlodipine Besylate (Norvasc) 10 mg DAILY ORAL 07/05/18 13:49 08/04/18 13:48 07/10/18 11:24 Barium Sulfate (Readi-Cat 2) 450 ml NOW PRN ORAL Radiology Procedure 07/09/18 19:30 07/11/18 19:21 Chlordiazepoxide (Librium) 50 mg QID ORAL 07/05/18 21:00 07/12/18 20:59 07/10/18 13:32 Clonidine HCl (Catapres Tab) 0.1 mg Q8H PRN ORAL hypertension 07/05/18 13:45 08/04/18 13:44 07/05/18 16:41 Dextrose/ Electrolytes 1,000 ml @ 150 mls/hr Q6H40M IV 07/09/18 12:00 08/08/18 11:59 07/10/18 15:56 Heparin Sodium (Porcine) (Heparin 5000 units/ml) 5,000 units Q12HR SUBQ 07/03/18 09:00 08/02/18 08:59 07/10/18 11:26 Iopamidol (Isovue-300 100ml) 100 ml NOW PRN INJ Radiology Procedure 07/10/18 11:45 07/12/18 11:43 Morphine Sulfate (Morphine Sulfate) 4 mg Q4H PRN IVP For Pain 07/10/18 10:45 07/17/18 10:44 07/10/18 16:45 Nicotine (Nicoderm) 1 patch Q24H TDERMAL 07/09/18 18:00 08/08/18 17:59 07/09/18 17:42 Ondansetron HCl (Zofran) 4 mg Q6H PRN IVP Nausea & Vomiting 07/02/18 21:15 08/01/18 21:14 07/06/18 12:43 Pantoprazole (Protonix) 40 mg DAILY ORAL 07/10/18 09:00 08/09/18 08:59 07/10/18 11:24 Piperacillin Sod/ Tazobactam Sod 3.375 gm/Dextrose 110 ml @ 27.5 mls/hr Q8H IVPB 07/06/18 13:00 07/13/18 12:59 07/10/18 13:32 Potassium Chloride 100 ml @ 100 mls/hr Q1H IVPB 07/10/18 18:00 07/10/18 18:59 07/10/18 17:29 Thiamine HCl 100 mg/Dextrose 56 ml @ 112 mls/hr Q24H IVPB 07/02/18 22:00 08/01/18 21:59 07/09/18 20:45 Assessment/Plan Problem List: (1) Cholecystitis, acute Assessment & Plan: Acute cholecystitis low grade fevers tachycardia US / CT noted labs noted exam with palpable GB in RUQ pancreatitis -npo -iv fluids -iv abx -AM labs -MRCP -cholecystectomy vs cholecystostomy. will follow with recs thank you ICD Codes: K81.0 - Acute cholecystitis SNOMED: [id number] [place] Jul 10, 2018 18:01
--- NOTE | 2018-07-10 19:47 | NUR ---
HAND-OFF: Report given to Wilmar HERRERA. Patient stable.
--- NOTE | 2018-07-10 20:00 | NUR ---
NURSE NOTES: Pt lying in bed w/bed in lowest position and call light within reach. Pt A&Ox1, VSS, and in no apparent distress at this time. IV sites intact/asymptomatic w/IVF @ 150 ml/hr and skin intact. Will continue to monitor.
[2018-07-10 20:45] VITALS: BP 111/75
[2018-07-10] MEDS: Pantoprazole Inj IVP SCH (21:44)
[2018-07-10] MEDS: Thiamine 100mg in D5W 55ml IVPB SCH (21:44)
--- NOTE | 2018-07-10 22:06 | General Progress Note ---
Assessment/Plan Assessment/Plan # Thrombocytopenia is likely related to underlying reactive processs from pancreatitis, acute, as well as alcoholic intoxication and myelosuppression --> also patient has a history of hepatitis C from prior admission --> smear has been reviewed --> heparin sq is okay if needed for dvt ppx # Erythrocytosis is likely related to dehydration --> hgb goal >7, no evidence of bleeding currently --> given ivf already # Leukocytosis no e/o annie infection --> could be due to reactive process # Pancreatitis with alcohol abuse --> recommend etoh cessation # Transaminitis --> likely related to etoh abuse --> in past seen by gi # Alcohol abuse -- recommend cessation The timing of this note does not necessarily reflect the time of the patient was seen Greatly appreciate consultation! Subjective Constitutional: Denies: no symptoms, chills, diaphoresis, fever, malaise, weakness, other HEENT: Denies: no symptoms, eye pain, blurred vision, tearing, double vision, ear pain, ear discharge, nose pain, nose congestion, throat pain, throat swelling, mouth pain, mouth swelling, other Cardiovascular: Denies: no symptoms, chest pain, edema, irregular heart rate, lightheadedness, palpitations, syncope, other Respiratory: Denies: no symptoms, cough, orthopnea, shortness of breath, SOB with excertion, SOB at rest, sputum, stridor, wheezing, other Gastrointestinal/Abdominal: Denies: no symptoms, abdomen distended, abdominal pain, black stools, tarry stools, blood in stool, constipated, diarrhea, difficulty swallowing, nausea, poor appetite, poor fluid intake, rectal bleeding , vomiting, other Genitourinary: Denies: no symptoms, burning, discharge, frequency, flank pain, hematuria, incontinence, pain, urgency, other Neurologic/Psychiatric: Denies: no symptoms, anxiety, depressed, emotional problems, headache, numbness, paresthesia, pre-existing deficit, seizure, tingling, tremors, weakness, other Endocrine: Denies: no symptoms, excessive sweating, flushing, intolerance to cold, intolerance to heat, increased hunger, increased thirst, increased urine, unexplained weight gain, unexplained weight loss, other Hematologic/Lymphatic: Denies: no symptoms, anemia, easy bleeding, easy bruising, other Allergies: Coded Allergies: No Known Allergies (Unverified , 12/14/16) Subjective 07/05: bp was high today and dc was cancelled until tomorow, on librium 07/06: wbc was high though other counts are better, no f/c 07/10: seen by bedside, heart rate increased, appears agitated, wbc 13.9 Objective Last 24 Hour Vital Signs Date Time Temp Pulse Resp B/P (MAP) Pulse Ox O2 Delivery O2 Flow Rate FiO2 07/10/18 20:45 99.1 99 20 111/75 (87) 94 07/10/18 17:24 106 22 07/10/18 17:15 100.0 07/10/18 16:00 100.0 153 24 139/75 (96) 98 07/10/18 12:00 98.6 103 20 139/88 (105) 99 07/10/18 11:24 105 126/84 07/10/18 09:00 Room Air 07/10/18 08:00 98.5 105 20 126/84 (98) 98 07/10/18 04:05 99.2 105 20 134/89 (104) 94 07/10/18 00:12 98.7 91 19 135/82 (99) 93 Intake and Output 07/09/18 07/10/18 19:00 07:00 Intake Total 1536.0 ml 2041.0 ml Output Total 1300 ml Balance 1536.0 ml 741.0 ml Intake Oral 676 ml IV Total 860.0 ml 2041.0 ml Output Urine Total 1300 ml # Voids 1 Laboratory Tests 07/10/18 08:05: White Blood Count 13.9H, Red Blood Count 3.81L, Hemoglobin 14.0L, Hematocrit 39.6L, Mean Corpuscular Volume 104H, Mean Corpuscular Hemoglobin 36.8H, Mean Corpuscular Hemoglobin Concent 35.4, Red Cell Distribution Width 11.4L, Platelet Count 279, Mean Platelet Volume 7.1, Neutrophils (%) (Auto) , Lymphocytes (%) (Auto) , Monocytes (%) (Auto) , Eosinophils (%) (Auto) , Basophils (%) (Auto) , Differential Total Cells Counted 100, Neutrophils % ( Manual) 82H, Lymphocytes % (Manual) 6L, Monocytes % (Manual) 11H, Eosinophils % (Manual) 0, Basophils % (Manual) 1, Band Neutrophils 0, Platelet Estimate Adequate, Platelet Morphology Normal, Anisocytosis 1+, Macrocytosis 1+, Sodium Level 138, Potassium Level 3.3L, Chloride Level 106, Carbon Dioxide Level 20L, Anion Gap 12, Blood Urea Nitrogen 7, Creatinine 0.9, Estimat Glomerular Filtration Rate > 60, Glucose Level 135H, Calcium Level 8.7, Total Bilirubin 1.2H, Direct Bilirubin 0.8H, Aspartate Amino Transf (AST/SGOT) 117H, Alanine Aminotransferase (ALT/SGPT) 119H, Alkaline Phosphatase 145H, Total Protein 7.4, Albumin 2.2L, Globulin 5.2, Albumin/Globulin Ratio 0.4L Height (Feet): 5 Height (Inches): 9.00 Weight (Pounds): 160 Objective Physical Exam General Appearance: A+O x3, NAD HEENT: normocephalic, atraumatic Neck: non-tender, normal alignment Respiratory/Chest: chest wall non-tender, lungs clear Cardiovascular/Chest: normal peripheral pulses, normal rate Abdomen: normal bowel sounds, non tender Extremities: normal range of motion Guy Salazar MD Jul 10, 2018 22:06
[2018-07-11 00:29] VITALS: BP 135/70
[2018-07-11 04:30] VITALS: BP 132/87
[2018-07-11] MEDS: Piperacillin/Tazobactam 3.375 GM in D5W 110 ML IVPB SCH ×3 (05:01→21:55)
[2018-07-11 07:16] LABS: BASOPHILS % (AUTO) 0.8 % (0.0-2.0); EOSINOPHILS % (AUTO) 0.5 % (0.0-3.0); HEMATOCRIT 44.3 % (42.0-52.0); HEMOGLOBIN 15.3 G/DL (14.2-18.0); LYMPHOCYTES % (AUTO) 4.5 % (20.0-45.0); MEAN CORPUSCULAR VOLUME 106 FL (80-99); MONOCYTES % (AUTO) 11.2 % (1.0-10.0); NEUTROPHILS % (AUTO) 83.1 % (45.0-75.0); PLATELET COUNT 365 K/UL (150-450); RED BLOOD COUNT 4.19 M/UL (4.70-6.10); RED CELL DISTRIBUTION WIDTH 12.4 % (11.6-14.8); WHITE BLOOD COUNT 15.6 K/UL (4.8-10.8)
--- NOTE | 2018-07-11 07:17 | NUR ---
HAND-OFF: Report given to JAVIER Yadav.
--- NOTE | 2018-07-11 07:22 | NUR ---
NURSE NOTES: Received report from JAVIER Urban. patient in bed, awake, alert, no distress noted. no c/o pain. IV intact, running. Condom catheter in place, draining well. bed lowest position. call light within reach. will continue to monitor.
[2018-07-11 07:39] LABS: ALANINE AMINOTRANSFERASE 120 U/L (12-78); ALBUMIN 2.1 G/DL (3.4-5.0); ALBUMIN/GLOBULIN RATIO 0.4 (1.0-2.7); ALKALINE PHOSPHATASE 151 U/L (46-116); ANION GAP 11 mmol/L (5-15); ASPARTATE AMINO TRANSFERASE 112 U/L (15-37); BILIRUBIN,TOTAL 1.1 MG/DL (0.2-1.0); BLOOD UREA NITROGEN 5 mg/dL (7-18); CALCIUM 8.8 MG/DL (8.5-10.1); CARBON DIOXIDE 22 MMOL/L (21-32); CHLORIDE 107 MMOL/L (98-107); CREATININE 0.9 MG/DL (0.55-1.30); POTASSIUM 3.9 MMOL/L (3.5-5.1); SODIUM 139 MMOL/L (136-145)
[2018-07-11 07:42] LABS: BILIRUBIN,DIRECT 0.5 MG/DL (0.0-0.3)
[2018-07-11 08:00] VITALS: BP 135/85
--- NOTE | 2018-07-11 08:08 | NUR ---
NURSE NOTES: patient has a MRCP. patient is confused, claim technician Orion request some medication for the procedure. notified dr. sousa and received order of Ativan 2mg IV once for procedure. order noted and carried out.
[2018-07-11] MEDS ORDERED: LORazepam Inj 2mg/ml 1ml IV SCH (08:09)
--- NOTE | 2018-07-11 08:13 | General Progress Note ---
Assessment/Plan Status: not improved Assessment/Plan #Sepsis #Acute cholecystitis - zosyn - improving - bcx x 2 ngtd - gen surg consulted - mrcp - cholecystectomy vs cholecystostomy - pain control - appreciate surg recs - fluids - not tolerating diet #Acute Metabolic Encephalopathy - due to sepsis vs alcohol withdrawals - cont to monitor withdrawals and cont abx - pending AM labs - fluids #Alcohol Pancreatitis #Intractable abdominal pain #intractable nausea/vomiting #Transaminitis #Alcohol Hepatitis #Alcohol withdrawals #Fatty Liver Disease #Hepatitis C - LFTs 446/532 - Lipase 687 - due to alcohol abuse - INR 1.0 - discriminant function, 4.5 , no need for steroids - US abd completed and reviewed, showing fatty liver disease. GS present, no obstruction noted. neg vickers's sign - ppi - PRN antiemetics, zofran prn - Banana bag - close lab monitoring - IVF - CIWA, requiring ativan - increased librium dosing - monitor carefully for withdrawals #Failure to thrive - due to alcohol withdrawals - alcoholic pancreatitis - pending CT abd/pelvis - fluids - poor PO intake - household appliance installer consult #Alcohol Abuse - educated on cessation for 15 mins - patient states he understands and will try to quit - RN notified to monitor carefully with withdrawals - prn ativan - ciwa - started librium, increased frequency today #Uncontrolled HTN - clonidine 0.1 mg po prn - amlodipine 10mg qday - due to withdrawals #Tobacco abuse - smokes 1ppd - educated on smoking cessation for over 15 mins, states he understands the risks of smoking and will try to quit diet: NPO DVT Prophylaxis: SCD, HSQ Code Status: Full Hospital Classification Declaration: Based on this initial evaluation, and depending on the patient's clinical course, I anticipate that this patient will require hospitalization for 2-3days for alcohol abuse, pancreatitis and close respiratory/hemodynamic monitoring. I have reviewed all labs, imaging and medications Disposition: Once the patient is stable to leave the hospital, I anticipate the patient will likely be discharged to the following environment: home I spent over 50 minutes on this patient's case, and over 50% of that time was spent on counseling and/or care . Discussed with patient/family, nursing staff , SW/CM regarding clinical status, treatment course, and disposition planning. Time of note may not reflect time of encounter. ------- Date of Discussion: 07/03/18 A [id number] discussion with the patient regarding the patient's advanced care planning took place during this hospitalization on the above date. The discussion included the explanation and discussion of advance directives and associated forms/documents, as well as the patient's current code status. We also discussed at length the patient's medical conditions (both acute and chronic), general prognosis, treatment options, and goals of care. The following summarizes the discussion: Advance Care Planning/Goals of Care: - Will attempt to fill out an AD and/or POLST with the patient prior to discharge, if not already completed - Continue current evaluation and management of any acute and chronic medical issues - Will continue to support the patient/family - Will continue to discuss both short- and long-term goals of care DPOA-HC/Surrogate Decision Maker: : Bonnie Crenshaw Code Status: Full Code AD Forms/Documents Completed: Deferred A total of 34 minutes was spent on this discussion, including counseling, answering questions, and completing, if any, pertinent advanced care planning forms/documents. Subjective Date patient seen: Jul 11, 2018 Time patient seen: 08:09 Allergies: Coded Allergies: No Known Allergies (Unverified , 06/01/16) Subjective f/u pancreatitis, cholecystitis, sepsis, alcoholic hepatitis, nausea, alcohol abuse, alcohol withdrawals no diarrhea/constipation no fevers/chills feels shaky and very weak very weak, not talking much, very lethargic not eating much due to abd pain/nausea/alcohol withdrawals MRCP today ROS: 14 point ROS negative except for the above Objective Last 24 Hour Vital Signs Date Time Temp Pulse Resp B/P (MAP) Pulse Ox O2 Delivery O2 Flow Rate FiO2 07/11/18 04:30 99.0 102 19 132/87 (102) 94 07/11/18 00:29 98.8 101 20 135/70 (91) 93 07/10/18 21:00 Room Air 07/10/18 20:45 99.1 99 20 111/75 (87) 94 07/10/18 17:24 106 22 07/10/18 17:15 100.0 07/10/18 16:00 100.0 153 24 139/75 (96) 98 07/10/18 12:00 98.6 103 20 139/88 (105) 99 07/10/18 11:24 105 126/84 07/10/18 09:00 Room Air Intake and Output 07/10/18 07/11/18 19:00 07:00 Intake Total 1612.5 ml 1141.0 ml Output Total 2150 ml Balance 1612.5 ml -1009.0 ml Intake Oral 50 ml IV Total 1562.5 ml 1141.0 ml Output Urine Total 2150 ml # Voids 1 # Bowel Movements 1 Laboratory Tests 07/11/18 06:25: White Blood Count 15.6H, Red Blood Count 4.19L, Hemoglobin 15.3, Hematocrit 44.3 , Mean Corpuscular Volume 106H, Mean Corpuscular Hemoglobin 36.6H, Mean Corpuscular Hemoglobin Concent 34.6, Red Cell Distribution Width 12.4, Platelet Count 365, Mean Platelet Volume 6.8, Neutrophils (%) (Auto) 83.1H, Lymphocytes ( %) (Auto) 4.5L, Monocytes (%) (Auto) 11.2H, Eosinophils (%) (Auto) 0.5, Basophils (%) (Auto) 0.8, Erythrocyte Sedimentation Rate [Pending], Sodium Level 139, Potassium Level 3.9, Chloride Level 107, Carbon Dioxide Level 22, Anion Gap 11, Blood Urea Nitrogen 5L, Creatinine 0.9, Estimat Glomerular Filtration Rate > 60, Glucose Level 111H, Lactic Acid Level 2.00, Calcium Level 8.8, Total Bilirubin 1.1H, Direct Bilirubin 0.5H, Aspartate Amino Transf (AST/ SGOT) 112H, Alanine Aminotransferase (ALT/SGPT) 120H, Alkaline Phosphatase 151H , Ammonia 44H, C-Reactive Protein, Quantitative 15.4H, Total Protein 7.3, Albumin 2.1L, Globulin 5.2, Albumin/Globulin Ratio 0.4L, Amylase Level 184H, Lipase 1983H Height (Feet): 5 Height (Inches): 9.00 Weight (Pounds): 160 Objective General Appearance: WD/WN, alert, mild distress Lines, tubes and drains: peripheral HEENT: normocephalic, atraumatic, anicteric, PERRL, other - dry mucous membrane Neck: non-tender, normal alignment Respiratory/Chest: chest wall non-tender, lungs clear, normal breath sounds, no respiratory distress, no accessory muscle use Cardiovascular/Chest: normal peripheral pulses, normal rate, regular rhythm Abdomen: normal bowel sounds, soft, no organomegaly, no mass, other - RUQ ttp Extremities: normal range of motion, non-tender, normal inspection, no calf tenderness, normal capillary refill, non-pitting. +asterixis Skin Exam: normal pigmentation, warm/dry Neurologic: no motor/sensory deficits, alert, oriented x 3, responsive, normal mood/affect Eulogio Siddiqi MD Jul 11, 2018 08:13
[2018-07-11] MEDS: Pantoprazole Inj IVP SCH ×2 (08:39→21:54)
[2018-07-11] MEDS: chlordiazePOXIDE 25mg Cap ORAL SCH ×4 (08:39→21:59)
[2018-07-11] MEDS: Heparin 5000 units/ml inj SUBQ SCH ×2 (08:42→21:56)
--- NOTE | 2018-07-11 10:19 | NUR ---
NURSE NOTES:Clarified order of US with Dr. Siddiqi and received order of cancel the procedure. Notified Deborah/US. order noted and carried out.
--- NOTE | 2018-07-11 11:22 | NUR ---
REHAB MED PT NOTE PATIENT UNAVAILABLE AT THIS TIME, WILL REATTEMPT ABLE.
[2018-07-11 12:00] VITALS: BP 136/87
--- NOTE | 2018-07-11 12:00 | Diagnostic Imaging Report ---
Indication: Abdominal pain, alcohol-induced pancreatitis, leukocytosis, fevers, abdominal pain Technique: Coronal and axial single shot fast spin-echo breath-hold, axial T2 FRFSE, 2-D thick slab MRCP, AXIAL 2-D FIESTA fat saturated, axial 3-D dual echo breath-hold, water weighted axial LAVA FLEX, revealed 3-D MRCP images were obtained of the abdomen. MIP reconstructions were generated of the bile ducts Comparison: Reference made to CT scan 07/10/2018 Findings: There is some image degradation due to motion artifact. The gallbladder is distended. It contains sludge and small gallstones. The gallbladder wall is markedly edematous. There is infiltration of the pericholecystic fat as well as some free pericholecystic fluid. The common bile duct is normal in caliber. Apparent linear filling defects on some of the sequences are not corroborated on the MRCP sequences, are likely artifactual. There is a 2 cm long focal area of type narrowing of the downstream common hepatic duct. A small amount of free fluid is seen over the dome of the liver. There is bilateral perinephric fluid as well as a small amount of fluid in the right paracolic gutter. There are enlarged peripancreatic nodes, measuring up to 2.3 cm in diameter and in retrospect also visible on recent CT No focal liver lesions. The pancreatic duct is normal in caliber and the pancreas is unremarkable. The spleen, adrenals, left kidney are unremarkable. There are probable small right renal cysts. There are trace bilateral pleural effusions. There is extensive consolidation of the lower lobe of the right lung. Impression: Cholelithiasis, also previously reported. Marked gallbladder wall thickening/edema and infiltration of the pericholecystic fat as well as some pericholecystic free fluid, also previously reported and suspicious for acute cholecystitis Free fluid elsewhere within the right upper quadrant, as described above and likely related to the gallbladder abnormality No evidence of choledocholithiasis. However, there is suggestion of a tight stricture of the downstream common hepatic duct. Appearance is nonspecific as regards etiology,. Indicate extrinsic compression due to surrounding edema or could be secondary to tumor. Consider ERCP for better characterization if clinically indicated Peripancreatic lymphadenopathy, most likely reactive given the above but could be neoplastic Trace bilateral pleural effusions. Extensive right lower lobe consolidation, also previously reported Bilateral perinephric fluid, nonspecific Probable small right renal cysts
--- NOTE | 2018-07-11 12:05 | NUR ---
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 99.0 HR 102 RR 20 B/P 132/87 RA O2 SAT @ 99% WBC 15.6 ESR 24 AMYLASE 44 LIPASE 1982 IS: IVF D5KCL@ 150ML/HR PROTONIX IV ZOSYN IV THIAMINE IV HEPARIN SUBC MED/SURG STATUS
--- NOTE | 2018-07-11 12:30 | NUR ---
NURSE NOTES: Patient temperature was 100.4 at 12pm, apply ice and light sheet. temperature went down 99.2 at this time. patient no distress, no pain noted
--- NOTE | 2018-07-11 14:12 | Surgery Progress Note ---
Surgery Progress Note Subjective Additional Comments MRCP noted. labs noted. RUQ tender. Objective Last 24 Hour Vital Signs Date Time Temp Pulse Resp B/P (MAP) Pulse Ox O2 Delivery O2 Flow Rate FiO2 07/11/18 12:00 100.4 102 20 136/87 (103) 93 07/11/18 09:00 Room Air 07/11/18 08:39 99 135/85 07/11/18 08:00 99.0 99 20 135/85 (102) 93 07/11/18 04:30 99.0 102 19 132/87 (102) 94 07/11/18 00:29 98.8 101 20 135/70 (91) 93 07/10/18 21:00 Room Air 07/10/18 20:45 99.1 99 20 111/75 (87) 94 07/10/18 17:24 106 22 07/10/18 17:15 100.0 07/10/18 16:00 100.0 153 24 139/75 (96) 98 I&O Intake and Output 07/10/18 07/11/18 19:00 07:00 Intake Total 1612.5 ml 1168.5 ml Output Total 2150 ml Balance 1612.5 ml -981.5 ml Intake Oral 50 ml IV Total 1562.5 ml 1168.5 ml Output Urine Total 2150 ml # Voids 1 # Bowel Movements 1 Drains: none Cardiovascular: RSR Respiratory: clear Abdomen: soft, distended, tenderness, present bowel sounds Extremities: no cyanosis Laboratory Tests Test 07/11/18 06:25 07/11/18 08:50 White Blood Count 15.6 K/UL (4.8-10.8) H Red Blood Count 4.19 M/UL (4.70-6.10) L Hemoglobin 15.3 G/DL (14.2-18.0) Hematocrit 44.3 % (42.0-52.0) Mean Corpuscular Volume 106 FL (80-99) H Mean Corpuscular Hemoglobin 36.6 PG (27.0-31.0) H Mean Corpuscular Hemoglobin Concent 34.6 G/DL (32.0-36.0) Red Cell Distribution Width 12.4 % (11.6-14.8) Platelet Count 365 K/UL (150-450) Mean Platelet Volume 6.8 FL (6.5-10.1) Neutrophils (%) (Auto) 83.1 % (45.0-75.0) H Lymphocytes (%) (Auto) 4.5 % (20.0-45.0) L Monocytes (%) (Auto) 11.2 % (1.0-10.0) H Eosinophils (%) (Auto) 0.5 % (0.0-3.0) Basophils (%) (Auto) 0.8 % (0.0-2.0) Erythrocyte Sedimentation Rate 23 MM/HR (0-20) H Sodium Level 139 MMOL/L (136-145) Potassium Level 3.9 MMOL/L (3.5-5.1) Chloride Level 107 MMOL/L (98-107) Carbon Dioxide Level 22 MMOL/L (21-32) Anion Gap 11 mmol/L (5-15) Blood Urea Nitrogen 5 mg/dL (7-18) L Creatinine 0.9 MG/DL (0.55-1.30) Estimat Glomerular Filtration Rate > 60 mL/min (>60) Glucose Level 111 MG/DL (74-106) H Lactic Acid Level 2.00 mmol/L (0.4-2.0) 1.10 mmol/L (0.66-2.22) Calcium Level 8.8 MG/DL (8.5-10.1) Total Bilirubin 1.1 MG/DL (0.2-1.0) H Direct Bilirubin 0.5 MG/DL (0.0-0.3) H Aspartate Amino Transf (AST/SGOT) 112 U/L (15-37) H Alanine Aminotransferase (ALT/SGPT) 120 U/L (12-78) H Alkaline Phosphatase 151 U/L (46-116) H Ammonia 44 umol/L (11-32) H C-Reactive Protein, Quantitative 15.4 mg/dL (0.00-0.90) H Total Protein 7.3 G/DL (6.4-8.2) Albumin 2.1 G/DL (3.4-5.0) L Globulin 5.2 g/dL Albumin/Globulin Ratio 0.4 (1.0-2.7) L Amylase Level 184 U/L (25-115) H Lipase 1983 U/L (73-393) H Plan Problems: (1) Cholecystitis, acute Assessment & Plan: Acute cholecystitis low grade fevers tachycardia US / CT noted labs noted exam with palpable GB in RUQ pancreatitis MRCP noted -npo -iv fluids -iv abx -AM labs -ERCP tomorrow per GI -cholecystectomy vs cholecystostomy to follow once hepatic duct obstruction identified and etiology determined will follow with recs thank you [place] Jul 11, 2018 14:12
--- NOTE | 2018-07-11 14:16 | GI Initial Consult Note ---
History of Present Illness General Date patient seen: Jul 11, 2018 Time patient seen: 14:15 Reason for Hospitalization: Abdominal Pain Referring physician: CAREN DUBON Reason for Consultation: Common Hepatic Duct Stricture Present Illness HPI Patient is a 62-year-old male who presented after increased abdominal pain. Patient gradual onset of symptoms. Patient was noted to have increased discomfort to his lower abdomen.He reports being an alcoholic. Patient states that he had been drinking earlier in the day. He had prior episodes of pancreatitis in the past. He had previous exploratory surgery on his abdomen. He was noted to have some prior history of hernia. GI consulted for possible tight stricture of the downstream common hepatic duct as seen on recent MRCP. Also noted within the MRCP with cholelithiasis. No evidence of choledocholithiasis.Initial HPI as noted above. Patient presented with increased reports of abdominal pain which is still present. Labs reviewed ; patient presented with leukocytosis, no anemia, LFT elevation, elevated lipase level of 1983 and positive hepatic C serology. No known history of endoscopically or colonoscopy. Home Meds No Active Prescriptions or Reported Meds Med list reviewed/reconciled: Yes Allergies: Coded Allergies: No Known Allergies (Unverified , 06/01/16) Patient History History Provided By: Patient, Medical Record PMH Narrative Past Medical History: see triage record Reviewed Nursing Documentation: PMH: Agreed; PSxH: Agreed Nursing Documentation-PMH Hx Cardiac Problems: No Hx Cancer: No Hx Gastrointestinal Problems: Yes - pancreatitis Hx Neurological Problems: No Social History: Reports: alcohol use - chronic user Review of Systems All Other Systems: negative except mentioned in HPI Physical Exam Vital Signs Date Time Temp Pulse Resp B/P (MAP) Pulse Ox O2 Delivery O2 Flow Rate FiO2 07/07/18 07:46 Room Air 07/07/18 08:00 98.1 128 19 126/86 (99) 100 Sp02 EP Interpretation: reviewed, normal Labs Laboratory Tests Test 07/11/18 06:25 07/11/18 08:50 White Blood Count 15.6 K/UL (4.8-10.8) H Red Blood Count 4.19 M/UL (4.70-6.10) L Hemoglobin 15.3 G/DL (14.2-18.0) Hematocrit 44.3 % (42.0-52.0) Mean Corpuscular Volume 106 FL (80-99) H Mean Corpuscular Hemoglobin 36.6 PG (27.0-31.0) H Mean Corpuscular Hemoglobin Concent 34.6 G/DL (32.0-36.0) Red Cell Distribution Width 12.4 % (11.6-14.8) Platelet Count 365 K/UL (150-450) Mean Platelet Volume 6.8 FL (6.5-10.1) Neutrophils (%) (Auto) 83.1 % (45.0-75.0) H Lymphocytes (%) (Auto) 4.5 % (20.0-45.0) L Monocytes (%) (Auto) 11.2 % (1.0-10.0) H Eosinophils (%) (Auto) 0.5 % (0.0-3.0) Basophils (%) (Auto) 0.8 % (0.0-2.0) Erythrocyte Sedimentation Rate 23 MM/HR (0-20) H Sodium Level 139 MMOL/L (136-145) Potassium Level 3.9 MMOL/L (3.5-5.1) Chloride Level 107 MMOL/L (98-107) Carbon Dioxide Level 22 MMOL/L (21-32) Anion Gap 11 mmol/L (5-15) Blood Urea Nitrogen 5 mg/dL (7-18) L Creatinine 0.9 MG/DL (0.55-1.30) Estimat Glomerular Filtration Rate > 60 mL/min (>60) Glucose Level 111 MG/DL (74-106) H Lactic Acid Level 2.00 mmol/L (0.4-2.0) 1.10 mmol/L (0.66-2.22) Calcium Level 8.8 MG/DL (8.5-10.1) Total Bilirubin 1.1 MG/DL (0.2-1.0) H Direct Bilirubin 0.5 MG/DL (0.0-0.3) H Aspartate Amino Transf (AST/SGOT) 112 U/L (15-37) H Alanine Aminotransferase (ALT/SGPT) 120 U/L (12-78) H Alkaline Phosphatase 151 U/L (46-116) H Ammonia 44 umol/L (11-32) H C-Reactive Protein, Quantitative 15.4 mg/dL (0.00-0.90) H Total Protein 7.3 G/DL (6.4-8.2) Albumin 2.1 G/DL (3.4-5.0) L Globulin 5.2 g/dL Albumin/Globulin Ratio 0.4 (1.0-2.7) L Amylase Level 184 U/L (25-115) H Lipase 1983 U/L (73-393) H General Appearance: well appearing, no apparent distress, alert Head: normocephalic EENT: PERRL/EOMI, normal ENT inspection Neck: supple Respiratory: normal breath sounds, no respiratory distress Cardiovascular: normal rate Gastrointestinal: normal inspection, non tender, soft, normal bowel sounds, non -distended Rectal: deferred Genitourinary: deferred Musculoskeletal: normal inspection, back normal Neurologic: normal inspection, alert, oriented x3, responsive Psychiatric: normal inspection, judgement/insight normal, memory normal Skin: normal inspection, normal color, no rash, warm/dry, palpation normal, well hydrated Lymphatic: normal inspection, no adenopathy Current Medications Current Medications Medications (Trade) Dose Ordered Sig/[place] Route PRN Reason Start Time Stop Time Status Last Admin Dose Admin Acetaminophen (Tylenol) 650 mg Q8H PRN ORAL Mild Pain/Temp > 100.5 07/07/18 13:00 08/06/18 12:59 07/09/18 16:27 Amlodipine Besylate (Norvasc) 10 mg DAILY ORAL 07/05/18 13:49 08/04/18 13:48 07/11/18 08:39 Barium Sulfate (Readi-Cat 2) 450 ml NOW PRN ORAL Radiology Procedure 07/09/18 19:30 07/11/18 19:21 Chlordiazepoxide (Librium) 50 mg QID ORAL 07/05/18 21:00 07/12/18 20:59 07/11/18 08:39 Clonidine HCl (Catapres Tab) 0.1 mg Q8H PRN ORAL hypertension 07/05/18 13:45 08/04/18 13:44 07/05/18 16:41 Dextrose/ Electrolytes 1,000 ml @ 150 mls/hr Q6H40M IV 07/09/18 12:00 08/08/18 11:59 07/11/18 11:13 Heparin Sodium (Porcine) (Heparin 5000 units/ml) 5,000 units Q12HR SUBQ 07/03/18 09:00 08/02/18 08:59 07/11/18 08:42 Iopamidol (Isovue-300 100ml) 100 ml NOW PRN INJ Radiology Procedure 07/10/18 11:45 07/12/18 11:43 Morphine Sulfate (Morphine Sulfate) 4 mg Q4H PRN IVP For Pain 07/10/18 10:45 07/17/18 10:44 07/10/18 16:45 Nicotine (Nicoderm) 1 patch Q24H TDERMAL 07/09/18 18:00 08/08/18 17:59 07/10/18 18:24 Ondansetron HCl (Zofran) 4 mg Q6H PRN IVP Nausea & Vomiting 07/02/18 21:15 08/01/18 21:14 07/06/18 12:43 Pantoprazole (Protonix) 40 mg EVERY 12 HOURS IVP 07/10/18 21:00 08/09/18 20:59 07/11/18 08:39 Piperacillin Sod/ Tazobactam Sod 3.375 gm/Dextrose 110 ml @ 27.5 mls/hr Q8H IVPB 07/06/18 13:00 07/13/18 12:59 07/11/18 05:01 Thiamine HCl 100 mg/Dextrose 56 ml @ 112 mls/hr Q24H IVPB 07/02/18 22:00 08/01/18 21:59 07/10/18 21:44 GI: Plan Problems: (1) Fatty liver (2) Hepatitis C (3) Cholecystitis, acute (4) Abnormal LFTs (5) Alcoholic pancreatitis (6) Pancreatitis, acute (7) Alcohol abuse Plan MRCP reviewed. Noted possible stricture downstream of the hepatic common duct. Elevated lipase levels Elevated LFT ERCP to be scheduled tomorrow. -Maintain n.p.o. plus IV fluids -Hold all blood thinners tonight Pain management ppi Trend lipase, LFTs Antibiotics Outpatient hep C treatment We will follow with additional recommendations post procedure Discussed with Dr. Ypi. Thank you for this patient referral, we will follow. The patient was seen and examined at bedside and all new and available data was reviewed in the patients chart. I agree with the above findings, impression and plan. (Patient seen earlier today. Signature stamp does not reflect patient encounter time.). - MD Florinda [facility] ELECTRIC SHOVEL OPERATOR Jul 11, 2018 14:15
--- NOTE | 2018-07-11 14:42 | NUR ---
ST NOTE: SWALLOW/SPEECH/COGNITIONS STATUS PT SEEN AT BEDSIDE IN AM AND PM. AWAKE WITH MAX CUES. SLEEPY ALL THE TIME AND SEEMS SLIGHTLY CONFUSED PROBABLY RELATED TO ALCOHOL WITHDRAWALS. PER RNALISHA, PT HAS A TEMPERATURE(100.4) AROUND NOON. GIVEN PO TRIAL: THIN(STRAW) AND NECTAR THICK(TSP) MILD INCREASED ORAL TRANSIT TIME, BUT GOOD OROPHARYNGEAL TRANSIT TIME, ADEQUATE LARYNGEAL ELEVATION, NO OVERT S/S OF ASPIRATION. CONTINUE NPO FOR NOW. ONCE PT BECOMES MORE ALERT, CONSIDER SLOWLY INITIATE CLEAR LIQUIDS DIET WITH STRICT ASPIRATION PRECAUTIONS WITH 1TO1 ASSIST/SUPERVISION. D/W THE STAFF.
[2018-07-11 16:00] VITALS: BP 141/87
[2018-07-11] MEDS: Morphine Sulfate 4mg/ml Inj (IV USE ONLY) IVP PRN (17:50)
--- NOTE | 2018-07-11 19:14 | General Progress Note ---
Assessment/Plan Assessment/Plan # Thrombocytopenia is likely related to underlying reactive processs from pancreatitis, acute, as well as alcoholic intoxication and myelosuppression --> also patient has a history of hepatitis C from prior admission --> smear has been reviewed --> heparin sq is okay if needed for dvt ppx # Erythrocytosis is likely related to dehydration --> hgb goal >7, no evidence of bleeding currently --> given ivf already # Leukocytosis no e/o annie infection --> could be due to reactive process v cholecystitis --> peripheral smear has been reviewed --> ercp tomorrow per surg/gi # Pancreatitis with alcohol abuse --> recommend etoh cessation --> amylase and lipase prn # Transaminitis --> likely related to etoh abuse --> in past seen by gi # Alcohol abuse -- recommend cessation The timing of this note does not necessarily reflect the time of the patient was seen Greatly appreciate consultation! Subjective HEENT: Denies: no symptoms, eye pain, blurred vision, tearing, double vision, ear pain, ear discharge, nose pain, nose congestion, throat pain, throat swelling, mouth pain, mouth swelling, other Cardiovascular: Denies: no symptoms, chest pain, edema, irregular heart rate, lightheadedness, palpitations, syncope, other Respiratory: Denies: no symptoms, cough, orthopnea, shortness of breath, SOB with excertion, SOB at rest, sputum, stridor, wheezing, other Gastrointestinal/Abdominal: Denies: no symptoms, abdomen distended, abdominal pain, black stools, tarry stools, blood in stool, constipated, diarrhea, difficulty swallowing, nausea, poor appetite, poor fluid intake, rectal bleeding , vomiting, other Genitourinary: Denies: no symptoms, burning, discharge, frequency, flank pain, hematuria, incontinence, pain, urgency, other Neurologic/Psychiatric: Denies: no symptoms, anxiety, depressed, emotional problems, headache, numbness, paresthesia, pre-existing deficit, seizure, tingling, tremors, weakness, other Endocrine: Denies: no symptoms, excessive sweating, flushing, intolerance to cold, intolerance to heat, increased hunger, increased thirst, increased urine, unexplained weight gain, unexplained weight loss, other Allergies: Coded Allergies: No Known Allergies (Unverified , 06/01/16) Subjective 07/05: bp was high today and dc was cancelled until tomorow, on librium 07/06: wbc was high though other counts are better, no f/c 07/10: seen by bedside, heart rate increased, appears agitated, wbc 13.9 07/11: to get ercp tomorrow, surgery and gi following Objective Last 24 Hour Vital Signs Date Time Temp Pulse Resp B/P (MAP) Pulse Ox O2 Delivery O2 Flow Rate FiO2 07/11/18 16:00 99.7 105 20 141/87 (105) 94 07/11/18 12:00 100.4 102 20 136/87 (103) 93 07/11/18 09:00 Room Air 07/11/18 08:39 99 135/85 07/11/18 08:00 99.0 99 20 135/85 (102) 93 07/11/18 04:30 99.0 102 19 132/87 (102) 94 07/11/18 00:29 98.8 101 20 135/70 (91) 93 07/10/18 21:00 Room Air 07/10/18 20:45 99.1 99 20 111/75 (87) 94 Intake and Output 07/10/18 07/11/18 19:00 07:00 Intake Total 1612.5 ml 1168.5 ml Output Total 2150 ml Balance 1612.5 ml -981.5 ml Intake Oral 50 ml IV Total 1562.5 ml 1168.5 ml Output Urine Total 2150 ml # Voids 1 # Bowel Movements 1 Laboratory Tests 07/11/18 06:25: White Blood Count 15.6H, Red Blood Count 4.19L, Hemoglobin 15.3, Hematocrit 44.3 , Mean Corpuscular Volume 106H, Mean Corpuscular Hemoglobin 36.6H, Mean Corpuscular Hemoglobin Concent 34.6, Red Cell Distribution Width 12.4, Platelet Count 365, Mean Platelet Volume 6.8, Neutrophils (%) (Auto) 83.1H, Lymphocytes ( %) (Auto) 4.5L, Monocytes (%) (Auto) 11.2H, Eosinophils (%) (Auto) 0.5, Basophils (%) (Auto) 0.8, Erythrocyte Sedimentation Rate 23H, Sodium Level 139, Potassium Level 3.9, Chloride Level 107, Carbon Dioxide Level 22, Anion Gap 11, Blood Urea Nitrogen 5L, Creatinine 0.9, Estimat Glomerular Filtration Rate > 60 , Glucose Level 111H, Lactic Acid Level 2.00, Calcium Level 8.8, Total Bilirubin 1.1H, Direct Bilirubin 0.5H, Aspartate Amino Transf (AST/SGOT) 112H, Alanine Aminotransferase (ALT/SGPT) 120H, Alkaline Phosphatase 151H, Ammonia 44H , C-Reactive Protein, Quantitative 15.4H, Total Protein 7.3, Albumin 2.1L, Globulin 5.2, Albumin/Globulin Ratio 0.4L, Amylase Level 184H, Lipase 1983H 07/11/18 08:50: Lactic Acid Level 1.10 Height (Feet): 5 Height (Inches): 9.00 Weight (Pounds): 160 Objective Physical Exam General Appearance: A+O x3, NAD HEENT: normocephalic, atraumatic Neck: non-tender, normal alignment Respiratory/Chest: chest wall non-tender, lungs clear Cardiovascular/Chest: normal peripheral pulses, normal rate Abdomen: normal bowel sounds, non tender Extremities: normal range of motion Guy Salazar MD Jul 11, 2018 19:14
--- NOTE | 2018-07-11 19:38 | NUR ---
HAND-OFF: Report given to JAVIER Teague.
--- NOTE | 2018-07-11 19:40 | NUR ---
NURSE NOTES: Received patient report from Christa HERRERA. Patient is in bed resting at this time appearing to be in no distress at this time. Patient does not verbalize any pain or discomfort at this time. Bed is in lowest position with call light within reach. Will continue to monitor and follow plan of care.
[2018-07-11 20:00] VITALS: BP 119/87
[2018-07-11] MEDS: Thiamine 100mg in D5W 55ml IVPB SCH (21:55)
[2018-07-12] VITALS (31 sets, daily range): BP systolic 90–158; BP diastolic 64–93
[2018-07-12] MEDS: Morphine Sulfate 4mg/ml Inj (IV USE ONLY) IVP PRN (00:21)
[2018-07-12] MEDS: Piperacillin/Tazobactam 3.375 GM in D5W 110 ML IVPB SCH ×2 (05:00→13:00)
[2018-07-12 07:15] LABS: INR 1.1 (0.9-1.1)
[2018-07-12] MEDS ORDERED: DiphenhydrAMINE 50mg/ml Inj IVP PRN ×3 (07:15→21:00)
[2018-07-12] MEDS ORDERED: fentaNYL 100 mcg/2 mL IV PRN ×2 (07:15→18:38)
[2018-07-12] MEDS ORDERED: Atropine Inj 1mg/10ml Syr IV PRN (07:15)
[2018-07-12] MEDS ORDERED: Midazolam 2mg/2ml Inj IVP PRN ×2 (07:15→18:40)
--- NOTE | 2018-07-12 07:21 | Anethesia Preoperative Eval ---
Anesthesia Pre-op PMH/ROS General Date of Evaluation: Jul 12, 2018 Time of Evaluation: 07:18 Anesthesiologist: eve ASA Score: ASA 3 Mallampati Score Class I : Soft palate, uvula, fauces, pillars visible Class II: Soft palate, uvula, fauces visible Class III: Soft palate, base of uvula visible Class IV: Only hard plate visible Mallampati Classification: Class II Surgeon: sujit Diagnosis: common bile duct stricture Surgical Procedure: ercp Anesthesia History: none Social History: current smoker, alcohol use Family History: no anesthesia problems Allergies: Coded Allergies: No Known Allergies (Unverified , 06/01/16) Medications: see eMAR Patient NPO?: Yes Past Medical History Gastrointestinal/Genitourinary: Reports: GERD, other - hep c, pancreatitis, gi bleed, Neurologic/Psychiatric: Reports: depression/anxiety, other - substance abuse Endocrine: Reports: other - hypoglycemia HEENT: Reports: other - decreased visual acuity PSxH Narrative: appendectomy Anesthesia Pre-op Phys. Exam Physician Exam Last Vital Signs Date Time Temp Pulse Resp B/P (MAP) Pulse Ox O2 Delivery O2 Flow Rate FiO2 07/12/18 04:00 97.8 95 21 124/75 (91) 93 07/11/18 21:00 Room Air 07/07/18 07:46 Constitutional: NAD Neurologic: CN 2-12 intact, other - obtunded Cardiovascular: RRR Respiratory: CTA Gastrointestinal: S/NT/ND Airway Exam Mallampati Score: Class II MO: limited Neck: flexible TMD: 2fb ROM: limited Teeth: missing Anesthesia Pre-op A/P Labs Hematology Test 07/12/18 05:22 White Blood Count Pending Red Blood Count Pending Hemoglobin Pending Hematocrit Pending Mean Corpuscular Volume Pending Mean Corpuscular Hemoglobin Pending Mean Corpuscular Hemoglobin Concent Pending Red Cell Distribution Width Pending Platelet Count Pending Mean Platelet Volume Pending Neutrophils (%) (Auto) Pending Lymphocytes (%) (Auto) Pending Monocytes (%) (Auto) Pending Eosinophils (%) (Auto) Pending Basophils (%) (Auto) Pending Coagulation Test 07/12/18 05:22 Prothrombin Time Pending Prothromb Time International Ratio Pending Activated Partial Thromboplast Time Pending Chemistry Test 07/11/18 08:50 07/12/18 05:22 Lactic Acid Level 1.10 mmol/L (0.66-2.22) Sodium Level Pending Potassium Level Pending Chloride Level Pending Carbon Dioxide Level Pending Blood Urea Nitrogen Pending Creatinine Pending Estimat Glomerular Filtration Rate Pending Glucose Level Pending Calcium Level Pending Total Bilirubin Pending Aspartate Amino Transf (AST/SGOT) Pending Alanine Aminotransferase (ALT/SGPT) Pending Alkaline Phosphatase Pending Total Protein Pending Albumin Pending Globulin Pending Amylase Level Pending Lipase Pending Risk Assessment & Plan Assessment: asa3 Plan: mac Status Change Before Surgery: No Pre-Antibiotics Drug: Cathy Rangel MD Jul 12, 2018 07:21
[2018-07-12 07:23] LABS: ALANINE AMINOTRANSFERASE 115 U/L (12-78); ALBUMIN 2.2 G/DL (3.4-5.0); ALBUMIN/GLOBULIN RATIO 0.4 (1.0-2.7); ALKALINE PHOSPHATASE 184 U/L (46-116); AMYLASE 149 U/L (25-115); ANION GAP 11 mmol/L (5-15); ASPARTATE AMINO TRANSFERASE 103 U/L (15-37); BILIRUBIN,TOTAL 1.2 MG/DL (0.2-1.0); BLOOD UREA NITROGEN 12 mg/dL (7-18); CALCIUM 8.9 MG/DL (8.5-10.1); CARBON DIOXIDE 23 MMOL/L (21-32); CHLORIDE 104 MMOL/L (98-107); CREATININE 0.8 MG/DL (0.55-1.30); POTASSIUM 3.5 MMOL/L (3.5-5.1); SODIUM 138 MMOL/L (136-145)
[2018-07-12 07:24] LABS: BILIRUBIN,DIRECT 0.9 MG/DL (0.0-0.3)
[2018-07-12 07:34] LABS: BASOPHILS % (AUTO) 0.4 % (0.0-2.0); EOSINOPHILS % (AUTO) 0.5 % (0.0-3.0); HEMATOCRIT 41.4 % (42.0-52.0); HEMOGLOBIN 14.3 G/DL (14.2-18.0); LYMPHOCYTES % (AUTO) 4.9 % (20.0-45.0); MEAN CORPUSCULAR VOLUME 106 FL (80-99); MONOCYTES % (AUTO) 10.6 % (1.0-10.0); NEUTROPHILS % (AUTO) 83.6 % (45.0-75.0); PLATELET COUNT 429 K/UL (150-450); RED CELL DISTRIBUTION WIDTH 11.9 % (11.6-14.8); WHITE BLOOD COUNT 15.9 K/UL (4.8-10.8)
--- NOTE | 2018-07-12 07:57 | NUR ---
HAND-OFF: Report given to Amalia HERRERA.
--- NOTE | 2018-07-12 08:08 | NUR ---
NURSE NOTES: Pt received awake being assisted with meal tray. Current plan of care will be followed
--- NOTE | 2018-07-12 08:23 | General Progress Note ---
Assessment/Plan Status: not improved Assessment/Plan #Sepsis #Acute cholecystitis - zosyn - improving - bcx x 2 ngtd - gen surg consulted - cholecystectomy vs cholecystostomy - all imaging reviewed, GI consulted - pain control - appreciate surg recs - fluids - not tolerating diet #Acute Metabolic Encephalopathy - due to sepsis vs alcohol withdrawals - cont to monitor withdrawals and cont abx - fluids #Pleural Effusions - b/l - per mrcp - due to fluids - small dose lasix x 1 #Alcohol Pancreatitis #Intractable abdominal pain #intractable nausea/vomiting #Transaminitis #Alcohol Hepatitis #Alcohol withdrawals #Fatty Liver Disease #Hepatitis C - LFTs 446/532 - Lipase 687 - due to alcohol abuse - INR 1.0 - discriminant function, 4.5 , no need for steroids - US abd completed and reviewed, showing fatty liver disease. GS present, no obstruction noted - ppi - PRN antiemetics, zofran prn - Banana bag - close lab monitoring - IVF - CIWA, requiring ativan - increased librium dosing - monitor carefully for withdrawals #Failure to thrive - due to alcohol withdrawals - alcoholic pancreatitis - pending CT abd/pelvis - fluids - poor PO intake - production planner scheduler consult #Alcohol Abuse - educated on cessation for 15 mins - patient states he understands and will try to quit - RN notified to monitor carefully with withdrawals - prn ativan - ciwa - started librium, increased frequency today #Uncontrolled HTN - clonidine 0.1 mg po prn - amlodipine 10mg qday - due to withdrawals #Tobacco abuse - smokes 1ppd - educated on smoking cessation for over 15 mins, states he understands the risks of smoking and will try to quit diet: NPO DVT Prophylaxis: SCD, HSQ Code Status: Full Hospital Classification Declaration: Based on this initial evaluation, and depending on the patient's clinical course, I anticipate that this patient will require hospitalization for 2-3days for alcohol abuse, pancreatitis and close respiratory/hemodynamic monitoring. I have reviewed all labs, imaging and medications Disposition: Once the patient is stable to leave the hospital, I anticipate the patient will likely be discharged to the following environment: home I spent over 50 minutes on this patient's case, and over 50% of that time was spent on counseling and/or care . Discussed with patient/family, nursing staff , SW/CM regarding clinical status, treatment course, and disposition planning. Time of note may not reflect time of encounter. ------- Date of Discussion: 07/03/18 A [id number] discussion with the patient regarding the patient's advanced care planning took place during this hospitalization on the above date. The discussion included the explanation and discussion of advance directives and associated forms/documents, as well as the patient's current code status. We also discussed at length the patient's medical conditions (both acute and chronic), general prognosis, treatment options, and goals of care. The following summarizes the discussion: Advance Care Planning/Goals of Care: - Will attempt to fill out an AD and/or POLST with the patient prior to discharge, if not already completed - Continue current evaluation and management of any acute and chronic medical issues - Will continue to support the patient/family - Will continue to discuss both short- and long-term goals of care DPOA-HC/Surrogate Decision Maker: : Bonnie Crenshaw Code Status: Full Code AD Forms/Documents Completed: Deferred A total of 34 minutes was spent on this discussion, including counseling, answering questions, and completing, if any, pertinent advanced care planning forms/documents. Subjective Date patient seen: Jul 12, 2018 Time patient seen: 08:20 Allergies: Coded Allergies: No Known Allergies (Unverified , 06/01/16) Subjective f/u pancreatitis, cholecystitis, sepsis, alcoholic hepatitis, nausea, alcohol abuse, alcohol withdrawals no diarrhea/constipation no fevers/chills feels shaky and very weak very weak, not talking much, very lethargic not eating much due to abd pain/nausea/alcohol withdrawals likely plan for possible ERCP, stricture noted on MRCP, possible cholecystectomy vs cholecystostomy requiring 2L ncl due to sob, pleural effusions noted on cxr, will give small dose of lasix ROS: 14 point ROS negative except for the above Objective Last 24 Hour Vital Signs Date Time Temp Pulse Resp B/P (MAP) Pulse Ox O2 Delivery O2 Flow Rate FiO2 07/12/18 04:00 97.8 95 21 124/75 (91) 93 07/12/18 00:00 99.5 105 20 137/89 (105) 94 07/11/18 21:00 Room Air 07/11/18 20:00 99.5 94 20 119/87 (98) 93 07/11/18 16:00 99.7 105 20 141/87 (105) 94 07/11/18 12:00 100.4 102 20 136/87 (103) 93 07/11/18 09:00 Room Air 07/11/18 08:39 99 135/85 Intake and Output 07/11/18 07/12/18 18:59 06:59 Intake Total 642.5 ml 150 ml Output Total 700 ml 700 ml Balance -57.5 ml -550 ml IV Total 642.5 ml 150 ml Output Urine Total 700 ml 700 ml Laboratory Tests 07/11/18 08:50: Lactic Acid Level 1.10 07/12/18 05:22: White Blood Count 15.9H, Red Blood Count 3.90L, Hemoglobin 14.3, Hematocrit 41.4L, Mean Corpuscular Volume 106H, Mean Corpuscular Hemoglobin 36.5H, Mean Corpuscular Hemoglobin Concent 34.4, Red Cell Distribution Width 11.9, Platelet Count 429, Mean Platelet Volume 7.2, Neutrophils (%) (Auto) 83.6H, Lymphocytes ( %) (Auto) 4.9L, Monocytes (%) (Auto) 10.6H, Eosinophils (%) (Auto) 0.5, Basophils (%) (Auto) 0.4, Prothrombin Time 11.6H, Prothromb Time International Ratio 1.1, Activated Partial Thromboplast Time 29, Sodium Level 138, Potassium Level 3.5, Chloride Level 104, Carbon Dioxide Level 23, Anion Gap 11, Blood Urea Nitrogen 12, Creatinine 0.8, Estimat Glomerular Filtration Rate > 60, Glucose Level 102, Calcium Level 8.9, Total Bilirubin 1.2H, Direct Bilirubin 0.9H, Aspartate Amino Transf (AST/SGOT) 103H, Alanine Aminotransferase (ALT/SGPT ) 115H, Alkaline Phosphatase 184H, Total Protein 7.7, Albumin 2.2L, Globulin 5.5 , Albumin/Globulin Ratio 0.4L, Amylase Level 149H, Lipase 1163H Height (Feet): 5 Height (Inches): 9.00 Weight (Pounds): 160 Objective General Appearance: WD/WN, alert, mild distress Lines, tubes and drains: peripheral HEENT: normocephalic, atraumatic, anicteric, PERRL, other - dry mucous membrane Neck: non-tender, normal alignment Respiratory/Chest: chest wall non-tender, lungs clear, normal breath sounds, no respiratory distress, no accessory muscle use Cardiovascular/Chest: normal peripheral pulses, normal rate, regular rhythm Abdomen: normal bowel sounds, soft, no organomegaly, no mass, other - RUQ ttp Extremities: normal range of motion, non-tender, normal inspection, no calf tenderness, normal capillary refill, non-pitting. +asterixis Skin Exam: normal pigmentation, warm/dry Neurologic: no motor/sensory deficits, alert, oriented x 3, responsive, normal mood/affect Eulogio Siddiqi MD Jul 12, 2018 08:23
--- NOTE | 2018-07-12 08:24 | NUR ---
NURSE NOTES: Pt is non verbal at this time. Dr Siddiqi here made aware of inspiratory congestion. Audible without a stethoscope. orders for a breathing tx> made aware of color of urine as well annalisa in color. Follow call made to rt to inform them of new orders for rt
[2018-07-12] MEDS: chlordiazePOXIDE 25mg Cap ORAL SCH ×4 (09:00→21:35)
[2018-07-12] MEDS: Pantoprazole Inj IVP SCH (09:00)
[2018-07-12] MEDS: Heparin 5000 units/ml inj SUBQ SCH (09:00)
[2018-07-12] MEDS ORDERED: Iothalamate Meglumine 60% 30ML INJ ONE ×3 (09:31→18:24)
[2018-07-12] MEDS ORDERED: Propofol 200mg/20ml IV ONE ×2 (10:00→18:10)
[2018-07-12] MEDS ORDERED: Lidocaine 1% MPF 10mg/ml 5ml ONE ×2 (10:00→18:10)
[2018-07-12] MEDS ORDERED: Midazolam 2mg/2ml Inj ONE (10:00)
[2018-07-12] MEDS ORDERED: fentaNYL 100 mcg/2 mL IV ONE (10:00)
[2018-07-12] MEDS ORDERED: Zemuron 50mg/5ml Inj IV ONE ×3 (10:00→19:22)
--- NOTE | 2018-07-12 10:00 | NUR ---
NURSE NOTES: Patient left for procedure. Making some noises and awake. Rambling and repeating some words. Will update notes if necessary
--- NOTE | 2018-07-12 10:08 | Pre-Procedure Note/Attestation ---
Pre-Procedure Note/Attestation Complete Prior to Procedure Planned Procedure: not applicable Procedure Narrative: ercp Indications for Procedure Pre-Operative Diagnosis: biliary stricture Attestation I attest that I discussed the nature of the procedure; its benefits; risks and complications; and alternatives (and the risks and benefits of such alternatives ), prior to the procedure, with the patient (or the patient's legal branch customer service representative). I attest that, if there was a reasonable possibility of needing a blood transfusion, the patient (or the patient's legal branch customer service representative) was given the [facility] standardized written summary, pursuant to the Bill Mirella Blood Safety Act ([place] Health and Safety Code # 1645, as amended). I attest that I re-evaluated the patient just prior to the surgery and that there has been no change in the patient's H&P, except as documented below: Toñito Yip MD Jul 12, 2018 10:08
[2018-07-12] MEDS ORDERED: NS 500ML IVPB ONE (10:11)
[2018-07-12] MEDS ORDERED: Albuterol/Ipratropium 3ml neb HHN SCH ×2 (11:00→19:00)
--- NOTE | 2018-07-12 11:22 | NUR ---
REHAB MED PT NOTE PATIENT AWAY FOR SURGERY, UNABLE TO SEE, WILL REATTEMPT ABLE.
--- NOTE | 2018-07-12 11:44 | Immediate Post-Op Evaluation ---
Immediate Post-Op Evalulation Immediate Post-Op Evalulation Procedure: ercp, sphincterotomy, stent placement Date of Evaluation: Jul 12, 2018 Time of Evaluation: 11:44 IV Fluids: 600ml 0.9ns Blood Products: none Estimated Blood Loss: negligible Blood Pressure Systolic: 113 Blood Pressure Diastolic: 77 Pulse Rate: 102 Respiratory Rate: 18 O2 Sat by Pulse Oximetry: 97 Temperature (Fahrenheit): 98.2 Pain Score (1-10): 0 Nausea: No Vomiting: No Complications none Patient Status: awake, reacts, patent, extubated Hydration Status: adequate Drug: Cathy Rangel MD Jul 12, 2018 11:44
--- NOTE | 2018-07-12 11:47 | 48 Hour Post Anesthesia Eval ---
Post Anesthesia Evaluation Procedure: ercp, sphincterotomy, stent placement Date of Evaluation: Jul 12, 2018 Time of Evaluation: 11:46 Blood Pressure Systolic: 117 0: 49 Pulse Rate: 100 Respiratory Rate: 18 Temperature (Fahrenheit): 98.2 O2 Sat by Pulse Oximetry: 97 Airway: patent Nausea: No Vomiting: No Pain Intensity: 0 Hydration Status: adequate Cardiopulmonary Status: stable Mental Status/LOC: patient returned to baseline Post-Anesthesia Complications: none Follow-up care needed: N/A Cathy Hampton MD Jul 12, 2018 11:47
--- NOTE | 2018-07-12 12:00 | NUR ---
SINUS TACH RATE 138-144 / MIN .SUCTIONED PRN . DR PALMER CALLED TO NOTIFY . SAT 94% TO 95% ON 3L N/C
--- NOTE | 2018-07-12 12:07 | Endoscopy Procedure Note ---
Endoscopy Procedure Note General Indication for Procedure: CBD stricture Procedures Performed: ERCP Operative Findings/Diagnosis: same Specimen: none Pt Tolerated Procedure Well: Yes Estimated Blood Loss: none Anesthesia Anesthesiologist: eve Anesthesia: MAC Inserted Devices Implant(s) used?: No GI Core Measures 50 yrs or older w/o bx or poly: Not Applicable 10yrs. F/U not recommended: Not Applicable Toñito Yip MD Jul 12, 2018 12:07
[2018-07-12] MEDS ORDERED: Esmolol 100mg/10ml Inj ONE (12:21)
[2018-07-12] MEDS ORDERED: Esmolol 100mg/10ml Inj IV ONE (12:30)
[2018-07-12] MEDS ORDERED: Esmolol 100mg/10ml Inj IV SCH (12:39)
--- NOTE | 2018-07-12 12:50 | NUR ---
DR REYNA UPDATED OF PATIENTS STATUS AND HR REMAINS TACHYCARDIC AT 132-141. WITH ORDERS GIVEN WITH ORDERS
[2018-07-12] MEDS ORDERED: LORazepam Inj 2mg/ml 1ml ONE (13:12)
[2018-07-12] MEDS ORDERED: LORazepam Inj 2mg/ml 1ml IV SCH (13:15)
--- NOTE | 2018-07-12 13:15 | NUR ---
DR GARLAND UPDATED PTS STATUS .PT AWAKE AND HAVING TREMORS . ATIVAN 1 MG IVP GIVEN ORDERED
--- NOTE | 2018-07-12 13:30 | NUR ---
NURSE NOTES: Received patient from JAVIER Ochoa. Patient is post ERCP with sphincterectomy and stent placement. Patient was sinus tachycardia post surgery that was unrelieved by ativan, esmolol, and catapres. Patient was transferred to [facility] after surgery due to the unresolved sinus tachycardia. Patient BP 136/64, HR 143, SpO2 90%, temp 100.5, and RR 20. Patient was on a bear hugger in post-op so patient's temp will be monitored closely and reassessed in 15 min. Patient is drowsy and alert only to name at this time. Patient is unable to answer questions. Patient has thick secretions. Suction at the bedside. Patient is on 3L NC at this time. Patient has a urine pouch that is patent and intact with annalisa colored urine. MD aware of urine color. Patient skin intact at this time. Patient has a left forearm 22G PIV that is patent and asymptomatic and running D5 0.9% NS at 150mL/hr at this time. Patient bed in low position with bed alarm on and call light in reach at this time.
--- NOTE | 2018-07-12 13:50 | General Progress Note ---
Assessment/Plan Assessment/Plan # Thrombocytopenia is likely related to underlying reactive processs from pancreatitis, acute, as well as alcoholic intoxication and myelosuppression --> also patient has a history of hepatitis C from prior admission --> smear has been reviewed --> heparin sq is okay if needed for dvt ppx # Erythrocytosis is likely related to dehydration --> hgb goal >7, no evidence of bleeding currently --> given ivf already # Leukocytosis no e/o annie infection --> could be due to reactive process v cholecystitis --> peripheral smear has been reviewed --> ercp tomorrow per surg/gi # Pancreatitis with alcohol abuse --> recommend etoh cessation --> amylase and lipase prn # Transaminitis --> likely related to etoh abuse --> in past seen by gi # Alcohol abuse -- recommend cessation The timing of this note does not necessarily reflect the time of the patient was seen Greatly appreciate consultation! Subjective ROS Limited/Unobtainable: Yes Allergies: Coded Allergies: No Known Allergies (Unverified , 06/01/16) Subjective 07/05: bp was high today and dc was cancelled until tomorow, on librium 07/06: wbc was high though other counts are better, no f/c 07/10: seen by bedside, heart rate increased, appears agitated, wbc 13.9 07/11: to get ercp tomorrow, surgery and gi following 07/12 ercp, sphincterotomy, stent placement surgery done today, currently having tremors and tachy. wbc 15.9, hgb 14, plt 429 Objective Last 24 Hour Vital Signs Date Time Temp Pulse Resp B/P (MAP) Pulse Ox O2 Delivery O2 Flow Rate FiO2 07/12/18 13:24 98.4 146 24 133/86 94 Nasal Cannula 3 07/12/18 13:19 138/87 07/12/18 13:15 146 25 142/92 94 Nasal Cannula 3 07/12/18 13:00 149 26 138/89 94 Nasal Cannula 3 07/12/18 12:50 139 25 125/88 94 Nasal Cannula 3 07/12/18 12:40 143 26 127/90 94 Nasal Cannula 3 07/12/18 12:30 134 24 125/89 95 Nasal Cannula 3 07/12/18 12:20 145 26 136/88 95 Nasal Cannula 3 07/12/18 12:05 144 28 137/93 94 Nasal Cannula 3 07/12/18 11:50 136 25 142/92 96 Simple Mask 6 07/12/18 11:47 100 18 97 07/12/18 11:45 99 20 117/79 98 Simple Mask 6 07/12/18 11:44 102 18 97 07/12/18 11:40 101 16 124/86 96 Simple Mask 6 07/12/18 11:32 98.2 102 14 113/77 98 Simple Mask 6 07/12/18 09:00 Room Air 07/12/18 08:00 98.4 73 18 158/90 (112) 100 07/12/18 04:00 97.8 95 21 124/75 (91) 93 07/12/18 00:00 99.5 105 20 137/89 (105) 94 07/11/18 21:00 Room Air 07/11/18 20:00 99.5 94 20 119/87 (98) 93 07/11/18 16:00 99.7 105 20 141/87 (105) 94 Intake and Output 07/11/18 07/12/18 19:00 07:00 Intake Total 642.5 ml 150 ml Output Total 700 ml 700 ml Balance -57.5 ml -550 ml IV Total 642.5 ml 150 ml Output Urine Total 700 ml 700 ml Laboratory Tests 07/12/18 05:22: White Blood Count 15.9H, Red Blood Count 3.90L, Hemoglobin 14.3, Hematocrit 41.4L, Mean Corpuscular Volume 106H, Mean Corpuscular Hemoglobin 36.5H, Mean Corpuscular Hemoglobin Concent 34.4, Red Cell Distribution Width 11.9, Platelet Count 429, Mean Platelet Volume 7.2, Neutrophils (%) (Auto) 83.6H, Lymphocytes ( %) (Auto) 4.9L, Monocytes (%) (Auto) 10.6H, Eosinophils (%) (Auto) 0.5, Basophils (%) (Auto) 0.4, Prothrombin Time 11.6H, Prothromb Time International Ratio 1.1, Activated Partial Thromboplast Time 29, Sodium Level 138, Potassium Level 3.5, Chloride Level 104, Carbon Dioxide Level 23, Anion Gap 11, Blood Urea Nitrogen 12, Creatinine 0.8, Estimat Glomerular Filtration Rate > 60, Glucose Level 102, Calcium Level 8.9, Total Bilirubin 1.2H, Direct Bilirubin 0.9H, Aspartate Amino Transf (AST/SGOT) 103H, Alanine Aminotransferase (ALT/SGPT ) 115H, Alkaline Phosphatase 184H, Total Protein 7.7, Albumin 2.2L, Globulin 5.5 , Albumin/Globulin Ratio 0.4L, Amylase Level 149H, Lipase 1163H Height (Feet): 5 Height (Inches): 9.00 Weight (Pounds): 160 Objective Physical Exam General Appearance: A+O x3, NAD HEENT: normocephalic, atraumatic Neck: non-tender, normal alignment Respiratory/Chest: chest wall non-tender, lungs clear Cardiovascular/Chest: normal peripheral pulses, normal rate Abdomen: normal bowel sounds, non tender Extremities: normal range of motion Guy Salazar MD Jul 12, 2018 13:50
--- NOTE | 2018-07-12 14:04 | NUR ---
NURSE NOTES: Received report from JAVIER Anthony.
--- NOTE | 2018-07-12 14:24 | NUR ---
ST NOTE: PT TRANSFERRED TO [facility]EL [facility], [facility]. PLEASE RE-ORDER ST EVAL WHEN PT IS MEDICALLY STABLE.
[2018-07-12] MEDS ORDERED: chlordiazePOXIDE 25mg Cap ORAL SCH (14:39)
--- NOTE | 2018-07-12 14:45 | NUR ---
NURSE NOTES: DR. Siddiqi updated on patient's status and arrival to floor. Patient still tachycardic in 140s. Meds given by surgery reported. Received telephone order to give 18:00 dose of Librium now, order verified, noted and carried out. Will continue to monitor and report to covering RN, Marleen Cunningham.
--- NOTE | 2018-07-12 14:50 | Diagnostic Imaging Report ---
INDICATION: Pain, intraoperative TECHNIQUE: Intraoperative imaging Fluoroscopy time: 329.5 seconds Total dose: 78.01 mGy Total number of images: 6 COMPARISON: None FINDINGS: Intraoperative images demonstrate normal caliber to minimally ectatic extra hepatic bile ducts. Gas bubbles are demonstrated after resume sphincterotomy and deployment of balloon extraction catheter. Subsequent images document placement of an endobiliary stent. IMPRESSION: Intraoperative imaging, as described
[2018-07-12] MEDS ORDERED: Morphine Sulfate 4mg/ml Inj (IV USE ONLY) IVP PRN ×2 (15:40→23:45)
--- NOTE | 2018-07-12 15:58 | Surgery Progress Note ---
Surgery Progress Note Subjective Additional Comments ERCP today. still with RUQ tenderness and palpable GB Objective Last 24 Hour Vital Signs Date Time Temp Pulse Resp B/P (MAP) Pulse Ox O2 Delivery O2 Flow Rate FiO2 07/12/18 15:56 Nasal Cannula 07/12/18 13:45 143 07/12/18 13:24 98.4 146 24 133/86 94 Nasal Cannula 3 07/12/18 13:19 138/87 07/12/18 13:15 146 25 142/92 94 Nasal Cannula 3 07/12/18 13:00 149 26 138/89 94 Nasal Cannula 3 07/12/18 12:50 139 25 125/88 94 Nasal Cannula 3 07/12/18 12:40 143 26 127/90 94 Nasal Cannula 3 07/12/18 12:30 134 24 125/89 95 Nasal Cannula 3 07/12/18 12:20 145 26 136/88 95 Nasal Cannula 3 07/12/18 12:05 144 28 137/93 94 Nasal Cannula 3 07/12/18 11:50 136 25 142/92 96 Simple Mask 6 07/12/18 11:47 100 18 97 07/12/18 11:45 99 20 117/79 98 Simple Mask 6 07/12/18 11:44 102 18 97 07/12/18 11:40 101 16 124/86 96 Simple Mask 6 07/12/18 11:32 98.2 102 14 113/77 98 Simple Mask 6 07/12/18 09:00 Room Air 07/12/18 08:00 98.4 73 18 158/90 (112) 100 07/12/18 04:00 97.8 95 21 124/75 (91) 93 07/12/18 00:00 99.5 105 20 137/89 (105) 94 07/11/18 21:00 Room Air 07/11/18 20:00 99.5 94 20 119/87 (98) 93 07/11/18 16:00 99.7 105 20 141/87 (105) 94 I&O Intake and Output 07/11/18 07/12/18 19:00 07:00 Intake Total 642.5 ml 150 ml Output Total 700 ml 700 ml Balance -57.5 ml -550 ml IV Total 642.5 ml 150 ml Output Urine Total 700 ml 700 ml Drains: none Cardiovascular: RSR Respiratory: clear Abdomen: soft, tenderness, present bowel sounds Extremities: other Laboratory Tests Test 07/12/18 05:22 White Blood Count 15.9 K/UL (4.8-10.8) H Red Blood Count 3.90 M/UL (4.70-6.10) L Hemoglobin 14.3 G/DL (14.2-18.0) Hematocrit 41.4 % (42.0-52.0) L Mean Corpuscular Volume 106 FL (80-99) H Mean Corpuscular Hemoglobin 36.5 PG (27.0-31.0) H Mean Corpuscular Hemoglobin Concent 34.4 G/DL (32.0-36.0) Red Cell Distribution Width 11.9 % (11.6-14.8) Platelet Count 429 K/UL (150-450) Mean Platelet Volume 7.2 FL (6.5-10.1) Neutrophils (%) (Auto) 83.6 % (45.0-75.0) H Lymphocytes (%) (Auto) 4.9 % (20.0-45.0) L Monocytes (%) (Auto) 10.6 % (1.0-10.0) H Eosinophils (%) (Auto) 0.5 % (0.0-3.0) Basophils (%) (Auto) 0.4 % (0.0-2.0) Prothrombin Time 11.6 SEC (9.30-11.50) H Prothromb Time International Ratio 1.1 (0.9-1.1) Activated Partial Thromboplast Time 29 SEC (23-33) Sodium Level 138 MMOL/L (136-145) Potassium Level 3.5 MMOL/L (3.5-5.1) Chloride Level 104 MMOL/L (98-107) Carbon Dioxide Level 23 MMOL/L (21-32) Anion Gap 11 mmol/L (5-15) Blood Urea Nitrogen 12 mg/dL (7-18) Creatinine 0.8 MG/DL (0.55-1.30) Estimat Glomerular Filtration Rate > 60 mL/min (>60) Glucose Level 102 MG/DL (74-106) Calcium Level 8.9 MG/DL (8.5-10.1) Total Bilirubin 1.2 MG/DL (0.2-1.0) H Direct Bilirubin 0.9 MG/DL (0.0-0.3) H Aspartate Amino Transf (AST/SGOT) 103 U/L (15-37) H Alanine Aminotransferase (ALT/SGPT) 115 U/L (12-78) H Alkaline Phosphatase 184 U/L (46-116) H Total Protein 7.7 G/DL (6.4-8.2) Albumin 2.2 G/DL (3.4-5.0) L Globulin 5.5 g/dL Albumin/Globulin Ratio 0.4 (1.0-2.7) L Amylase Level 149 U/L (25-115) H Lipase 1163 U/L (73-393) H Plan Problems: (1) Cholecystitis, acute Assessment & Plan: Acute cholecystitis low grade fevers tachycardia US / CT noted labs noted exam with palpable GB in RUQ pancreatitis MRCP noted s/p ERCP -npo -iv fluids -iv abx -AM labs -cholecystectomy vs cholecystostomy soon will follow with recs thank you Salinas Antonio Jul 12, 2018 15:58
--- NOTE | 2018-07-12 16:05 | Pre-Procedure Note/Attestation ---
Pre-Procedure Note/Attestation Complete Prior to Procedure Planned Procedure: not applicable Procedure Narrative: laparoscopic cholecystectomy possible open Indications for Procedure Pre-Operative Diagnosis: acute cholecystitis Attestation I attest that I discussed the nature of the procedure; its benefits; risks and complications; and alternatives (and the risks and benefits of such alternatives ), prior to the procedure, with the patient (or the patient's legal senior sales representative). I attest that, if there was a reasonable possibility of needing a blood transfusion, the patient (or the patient's legal senior sales representative) was given the [facility] standardized written summary, pursuant to the Bill Mirella Blood Safety Act ([place] Health and Safety Code # 1645, as amended). I attest that I re-evaluated the patient just prior to the surgery and that there has been no change in the patient's H&P, except as documented below: Salinas Antonio Jul 12, 2018 16:05
--- NOTE | 2018-07-12 17:57 | NUR ---
NURSE NOTES: Patient had Librium ahead of schedule per Dr Siddiqi. Patient did not receive the 1800 dose as it was too close to the last dose that he received.
[2018-07-12] MEDS ORDERED: Sodium Chloride 10ml vial INJ ONE (18:10)
[2018-07-12] MEDS ORDERED: Dexamethasone 4mg/ml vial ONE (18:10)
[2018-07-12] MEDS ORDERED: Acetaminophen (Non formulary) 100 ML IV ONE (18:15)
[2018-07-12] MEDS ORDERED: Phenylephrine 10mg/ml Vial ONE (18:16)
[2018-07-12] MEDS ORDERED: Lidocaine 1% Plain 30 ml INJ ONE ×2 (18:17→19:40)
[2018-07-12] MEDS ORDERED: Bupivacaine w/Epi 0.5% 30ml Vial INJ ONE (18:23)
[2018-07-12] MEDS ORDERED: NeoSporin Gu Irrig 1ml Amp IRRIG ONE (18:24)
[2018-07-12] MEDS ORDERED: Bacitracin 50000 Units Vial ONE (18:24)
[2018-07-12] MEDS ORDERED: NS Irrig 1000ml ONE (18:30)
[2018-07-12] MEDS ORDERED: LR 1000ml ONE (18:30)
[2018-07-12] MEDS ORDERED: Propofol 1,000mg/ 100ml btl IV ONE (18:30)
[2018-07-12] MEDS ORDERED: Sterile Water Irrig 1000ml IRRIG ONE (18:30)
[2018-07-12] MEDS ORDERED: NS Irrig 4000ml IRRIG ONE (18:30)
[2018-07-12] MEDS ORDERED: Hydromorphone 0.5mg/0.5ml inj IVP PRN ×2 (18:39→21:00)
[2018-07-12] MEDS ORDERED: Norco 5mg/325mg tab ORAL PRN (18:39)
[2018-07-12] MEDS ORDERED: HYDROcodone/Acetamin 7.5/325 tab ORAL PRN (18:39)
[2018-07-12] MEDS ORDERED: oxyCODONE HCL/Acetaminophen 5/325mg ORAL PRN (18:39)
[2018-07-12] MEDS ORDERED: LORazepam Inj 2mg/ml 1ml IV PRN ×2 (18:40→21:00)
[2018-07-12] MEDS ORDERED: Metoclopramide 10mg/2ml Inj IVP PRN (18:40)
[2018-07-12] MEDS ORDERED: Atropine Sulfate 0.4mg/ml inj IVP PRN (18:41)
[2018-07-12] MEDS ORDERED: Meperidine 50mg/ml Inj(FOR RIGORS ONLY) IVP PRN (18:42)
[2018-07-12] MEDS ORDERED: LR 1000ml 1,000 ML IVLG SCH (18:42)
--- NOTE | 2018-07-12 18:45 | NUR ---
HAND-OFF: Report given to JAVIER Amin. Patient going to surgery and then patient will be transported to ICU. Patient VS stable at this time with no sign of acute distress at this time.
--- NOTE | 2018-07-12 19:00 | Procedure Note ---
DATE OF PROCEDURE: 07/12/2018 SURGEON: Toñito Yip M.D. PROCEDURE: ERCP with sphincterotomy, balloon assistance common bile duct sweep and stent placement. ANESTHESIA: See anesthesia sheet. INSTRUMENT: Olympus adult flexible ERCP scope. INDICATION: Biliary stricture. REASON FOR PROCEDURE: The procedure, risks, benefits, and possible consequences, including hemorrhage, aspiration, perforation and infection, and alternative treatments, were explained to the patient/legal guardian by Dr. Toñito Yip and the patient/legal guardian understood and accepted these risks. PROCEDURE IN DETAIL: After informed consent was obtained and the patient was adequately sedated, the ERCP scope was advanced from mouth into the second portion of the duodenum. The patient had a large duodenal diverticulum. Ampulla was at about 2 o'clock position making the procedure challenging. Using a sphincterotome, we attempted to cannulate the common bile duct. I would say about 4 times we cannulate the pancreatic duct before we were able to cannulate the common bile duct. Initial cholangiogram showed common bile duct to roughly about 8 to 9 mm in size. There was a small short stricture at the ampulla possibly from the diverticulum. No intrabiliary duct dilatation. At this time, over a guidewire we performed 90% of sphincterotomy. After the sphincterotomy was performed, a lot of actually pus came out from the common bile duct, which was interesting. Then, we sweep the duct with the balloon. An 8.5 mm balloon was used to sweep the duct multiple times and removed lots of sludge and some pus. Then, over a guidewire, a 10-Spanish 5 cm stent was successfully placed in the distal common bile duct. The patient tolerated the procedure very well without any complication. SUMMARY OF FINDINGS: 1. 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 2. Status post ERCP with sphincterotomy, balloon assistance sludge and some pus extraction from the common bile duct and then stent placement. RECOMMENDATIONS: 1. The patient will need repeat ERCP in 6 to 8 weeks for stent removal. 2. Follow labs. 3. Continue antibiotics. 4. Start clear liquid diet and advance as tolerated. I want to thank, Dr. Kinsey, for this kind referral. Toñito Oliver Yip DR: VIOLA JOB#: [id number] CC: [email or web address]
--- NOTE | 2018-07-12 19:09 | Immediate Post-Op Evaluation ---
Immediate Post-Op Evalulation Immediate Post-Op Evalulation Procedure: Open Cholecystectomy Date of Evaluation: Jul 12, 2018 Time of Evaluation: 21:17 IV Fluids: 1000 Blood Products: 0 Estimated Blood Loss: 100 Urinary Output: 200 Blood Pressure Systolic: 92 Blood Pressure Diastolic: 66 Pulse Rate: 83 Respiratory Rate: 20 - mech vent O2 Sat by Pulse Oximetry: 100 Temperature (Fahrenheit): 98.6 Pain Score (1-10): 0 Nausea: No Vomiting: No Complications To ICU Intubated. Patient Status: no response, patent, ventilated, none Hydration Status: adequate Dru Grams Ancef IV Given Within 1 Hr of Incision: Yes Time Given: 16:51 Macario Lockwood MD Jul 12, 2018 19:09
--- NOTE | 2018-07-12 19:35 | NUR ---
HAND-OFF: Report given to JAVIER Arceo. Suzanne in surgery at this time. Patient to be transferred to ICU following surgery. Adis will receive the patient. Endorsed to follow up.
--- NOTE | 2018-07-12 20:51 | Brief Operative Note ---
Immediate Post Operative Note Operative Note Pre-op Diagnosis: acute cholecystitis Procedure: laparoscopic converted to open cholecystectomy Post-op Diagnosis: purulent gangrenous cholecystitis Surgeon: nicole Anesthesiologist: wilfredo Anesthesia: general Specimen: yes Complications: none Condition: stable Fluids: see records Estimated Blood Loss: minimal - 100 Drains: JUNE Implant(s) used?: No Salinas Antonio Jul 12, 2018 20:51
[2018-07-12] MEDS ORDERED: Levophed 4mg/4mL Inj IV ONE (20:52)
[2018-07-12] MEDS ORDERED: Heparin 5000 units/ml inj SUBQ SCH (21:00)
[2018-07-12] MEDS ORDERED: Piperacillin/Tazobactam 3.375 GM in D5W 110 ML IVPB SCH (21:00)
[2018-07-12] MEDS ORDERED: Milk of Magnesia 30ml Ud ORAL PRN (21:00)
[2018-07-12] MEDS ORDERED: HYDROmorphone 1mg/ml Carpuject IVP PRN (21:00)
[2018-07-12] MEDS ORDERED: Pantoprazole Inj IVP SCH (21:00)
--- NOTE | 2018-07-12 21:00 | NUR ---
NURSE NOTES: Patient received from OR Nurse, s/p open cholecystectomy. Patient is Mechanically Ventilated at this time AC 14, 500tv, FiO2 of 50% and peep of 5. Patient is NPO except for PO meds. Patient noted to have JUNE drain draining bright red blood. Patient is diaphoretic and having fever of 100.9F Patient is ETOH and also currently being treated for ETOH withdraws.
--- NOTE | 2018-07-12 21:30 | NUR ---
NURSE NOTES: Dr. Antonio ordered for Serrano catheter for monitoring I/O's, NGT for PO meds, KUB for s/p NGT placement. Tylenol provided for fever Cooling measure initiated Scheduled medications provided. New 20G @ L AC area Bilateral soft wrist restraints initiated Patient receiving Maintenance fluids of D51/2 NS w/ 20mEq KCL
[2018-07-12] MEDS ORDERED: Thiamine HCl 100 MG in D5W 55 ML IVPB SCH (22:00)
[2018-07-12] MEDS: Thiamine HCl 100 MG in D5W 55 ML IVPB SCH (22:00)
--- NOTE | 2018-07-12 22:00 | NUR ---
NURSE NOTES: Patient still sedated, hypoactive bowel sounds. KUB confirms NGT placement. Patient repositioned. Patient is still diaphoretic. SpO2 is 95% RR 18. BP has been normotensive since admission in the unit. JUNE draining dark red blood. Patient remains on FiO2 of 50%.
--- NOTE | 2018-07-12 22:45 | Operative Note - Dictated ---
DATE OF OPERATION: 07/12/2018 PREOPERATIVE DIAGNOSIS: Acute cholecystitis. POSTOPERATIVE DIAGNOSIS: Acute purulent gangrenous cholecystitis. OPERATION PERFORMED: Laparoscopic converted to open cholecystectomy. ATTENDING SURGEON: Salinas Antonio M.D. TRANSCRIPTION SPECIALIST: None. ANESTHESIOLOGIST: Macario Lockwood M.D. ANESTHESIA: General [facility] DEPARTMENT. ESTIMATED BLOOD LOSS: 100 mL. IV FLUIDS: Please see anesthesia records. COMPLICATIONS: None. DRAINS: A 19-Telugu Jhonny drain left in the right upper quadrant. WOUND CLASSIFICATION: Class 3. ANTIBIOTICS: The patient is on IV Zosyn. COUNTS: Sponge and needle count correct x2. SPECIMENS: 1. Gallbladder. 2. Peritoneal culture. 3. Gallbladder culture. INDICATIONS FOR PROCEDURE: This is a 62-year-old male with multiple medical comorbidities, who was admitted to [facility] for alcoholic pancreatitis at which time during his hospital course, he began to worsen with elevated LFTs and alcohol withdrawal. During admission, he was noted to have worsening abdominal pain and CT scan with concerns for acute cholecystitis with a marked gallbladder distention, wall thickening, infiltration, and pericholecystic fat in a patient with known cholelithiasis, which was identified on ultrasound during admission, which did not identify any Peralta sign or significant gallbladder disease. MRCP was performed, which identified an area of concern in the common bile duct in which ERCP was performed today by Gastroenterology identifying duodenal diverticulum, common bile duct, and pus in the biliary tract. The patient's clinical course continued to deteriorate and therefore, decision was made to take the patient to the operating room for cholecystectomy given clinical indications. The risks, benefits, and alternatives were discussed with the patient's who consented for procedure given that he was not in the mental capacity to do so at that time. OPERATIVE NOTE: The patient was taken to the operating room and placed on the operating table in supine position with bilateral arms out. All bony prominences were well padded. SCDs were placed. Preoperative time-out was taken in identifying the patient, procedure, operative staff, and surgical staff. General anesthesia was induced. The patient was intubated. The abdomen was clipped, prepped, and draped in the standard surgical fashion. The patient was already on scheduled IV antibiotics for acute active inflammatory process. An infraumbilical incision was made using a fresh #15 scalpel and carried down to the fascia, which was elevated and incised. Entry into the abdomen was obtained using the open Nichole technique without complication. A 12 mm Nichole trocar was inserted and the abdomen was insufflated to 12 to 15 mmHg. The patient tolerated the insufflation well. Laparoscope was inserted and the abdomen was inspected. There were significant adhesions from the patient's prior laparotomy. In the right upper quadrant, the gallbladder was identified to be significantly edematous with gangrene noted and thick omental adhesions around the gallbladder. A secondary trocar was placed in the right lateral subcostal position under direct visualization. A 5 mm trocar was inserted and the graspers were used to gently dissect down the peritoneal adhesions as well as the omental adhesions over the gallbladder. With the slightest dissection of the omental adhesions to the gallbladder, purulent fluid began to evacuate. At this time, given these findings, decision was made to convert to open as further laparoscopic attempt would potentially be unsafe. The abdomen was desufflated and secondary trocars were removed under direct visualization followed by removal of the umbilical trocar site. A #10 scalpel was used to make a right subcostal incision. Incision was carried down through the subcutaneous tissue, fascia, rectus muscle, and posterior rectus sheath using electrocautery. Entry into the abdomen was obtained without complication. A Bookwalter retractor was placed and appropriate exposure was obtained. Purulent fluid from the gallbladder around it were evacuated. Some was sent for cultures. The gallbladder was very distended with a gangrenous wall. An area of gangrene was identified and entered and the gallbladder was evacuated of a purulent bilious fluid and sludge sediment. This was sent for culture as well. Once this completed, the dome of the gallbladder was grasped and the gallbladder was removed off the liver bed using the top-down technique. Most of the gallbladder adhesion to the liver bed was gangrenous. Once near the infundibulum, manual grasping was used to identify the cystic duct. Following this, the cystic artery was slowly dissected out and identified. The cystic artery was ligated using a #0 silk suture. Following this, the cystic duct was ligated using #0 silk suture. The gallbladder was then divided from the cystic duct and sent off to pathology for review. The abdomen was irrigated with approximately 6 liters of warm normal saline until clear. Good hemostasis was obtained from the liver bed using electrocautery. Following this, there was no leakage of bile and good hemostasis was noted and we began the conclusion of our procedure. A 19-Telugu Jhonny drain was inserted and placed in the right upper quadrant. Two pieces of Surgicel was placed in the gallbladder fossa. At this time, the infraumbilical fascial site incision was closed using a [id number] #0 Vicryl suture. Following this, the right subcostal incision was closed using a #0 PDS loop running suture. The subcutaneous tissues were irrigated and cleansed and skin reapproximated using surgical kenneth. Drain was placed to bulb suction and the dressings were applied. The patient tolerated the procedure well. Given the patient's preoperative septic condition, currently inactive DTs, and operative findings, a decision was made to leave the patient intubated and taken to the intensive care unit for overnight monitoring. Salinas Antonio M.D. DR: KOKO JOB#: [id number] CC: VENANCIO
[2018-07-12] MEDS: Albuterol/Ipratropium 3ml neb HHN SCH (23:15)
[2018-07-12] MEDS: LORazepam Inj 2mg/ml 1ml IV PRN (23:57)
[2018-07-13] VITALS (31 sets, daily range): BP systolic 80–146; BP diastolic 20–83
[2018-07-13] MEDS ORDERED: HYDROmorphone 1mg/ml Carpuject IVP PRN
--- NOTE | 2018-07-13 | NUR ---
NURSE NOTES: Patients temperature now is 97.4F, Patient now transitioned to Sinus Tachy with current HR of 111, asymptomatic . Patient less diaphoretic but still ongoing. BP has been stable, Ativan PRN given. Maintenance fluids running. IV lines remains intact.
[2018-07-13] MEDS: Hydromorphone 0.5mg/0.5ml inj IVP PRN (00:46)
--- NOTE | 2018-07-13 02:00 | NUR ---
NURSE NOTES: Patient repositioned, Dilaudid 0.5mg given for pain, VS has remained stable, SpO2 99%, still on 50% FiO2. Normotensive, RR 18, no fever. Will continue to monitor.
[2018-07-13] MEDS ORDERED: DiphenhydrAMINE 50mg/ml Inj IVP PRN (03:00)
[2018-07-13] MEDS: Albuterol/Ipratropium 3ml neb HHN SCH ×6 (03:17→23:17)
--- NOTE | 2018-07-13 04:00 | NUR ---
NURSE NOTES: Patient cleaned and repositioned. Patient still remains sedated/asleep. Vitals have been stable, no fevers, temperature now is 98.3F. Fio2 is 40% and saturating at around 97-99%. Patient isn't diaphoretic at this point, patient is dry. Sanguineous fluid in JUNE drain. Abdominal dressing remains dry and intact. Oral care was delivered. Maintenance fluids running.
[2018-07-13] MEDS ORDERED: Piperacillin/Tazobactam 3.375 GM in D5W 110 ML IVPB SCH (05:00)
[2018-07-13 05:18] LABS: HEMATOCRIT 34.2 % (42.0-52.0); HEMOGLOBIN 11.6 G/DL (14.2-18.0); MEAN CORPUSCULAR VOLUME 108 FL (80-99); PLATELET COUNT 432 K/UL (150-450); RED BLOOD COUNT 3.16 M/UL (4.70-6.10); RED CELL DISTRIBUTION WIDTH 12.4 % (11.6-14.8)
[2018-07-13 05:35] LABS: WHITE BLOOD COUNT 22.9 K/UL (4.8-10.8)
[2018-07-13 05:47] LABS: ALANINE AMINOTRANSFERASE 85 U/L (12-78); ALBUMIN 1.7 G/DL (3.4-5.0); ALBUMIN/GLOBULIN RATIO 0.4 (1.0-2.7); ALKALINE PHOSPHATASE 114 U/L (46-116); ANION GAP 11 mmol/L (5-15); ASPARTATE AMINO TRANSFERASE 74 U/L (15-37); BILIRUBIN,TOTAL 0.7 MG/DL (0.2-1.0); BLOOD UREA NITROGEN 15 mg/dL (7-18); CALCIUM 7.5 MG/DL (8.5-10.1); CARBON DIOXIDE 23 MMOL/L (21-32); CHLORIDE 107 MMOL/L (98-107); CREATININE 1.1 MG/DL (0.55-1.30); POTASSIUM 4.1 MMOL/L (3.5-5.1); SODIUM 141 MMOL/L (136-145)
--- NOTE | 2018-07-13 06:00 | NUR ---
NURSE NOTES: Patient repositioned. Vitals have remains stable throughout the PM shift, No acute events overnight. Patient is dry and cleaned. FiO2 right now is at 40%. Patient is still asleep at this time. Lab called to notify me of WBC of 22.9. Dressing remains dry and intact. JUNE drainage amount for PM shift is 60ml, sanguinous in color. IV lines remains patent and intact. NAD at this time.
[2018-07-13 06:17] LABS: AMYLASE 142 U/L (25-115)
--- NOTE | 2018-07-13 06:58 | 48 Hour Post Anesthesia Eval ---
Post Anesthesia Evaluation Procedure: Open Cholecystectomy Date of Evaluation: Jul 13, 2018 Time of Evaluation: 06:20 Blood Pressure Systolic: 120 0: 78 Pulse Rate: 101 Respiratory Rate: 21 Temperature (Fahrenheit): 98.1 O2 Sat by Pulse Oximetry: 98 Airway: other - intubated, on mechanical ventilation Nausea: No Vomiting: No Pain Intensity: 0 Hydration Status: adequate Cardiopulmonary Status: at pre-op baseline Mental Status/LOC: other - sedated, sleeping but arousable Post-Anesthesia Complications: 0 Follow-up care needed: N/A - further care as per primary team Lacy Olvera MD Jul 13, 2018 06:58
--- NOTE | 2018-07-13 07:17 | NUR ---
HAND-OFF: Report given to Rosalia HERRERA.
--- NOTE | 2018-07-13 07:18 | NUR ---
NURSE NOTES: Received pt from JAVIER Arceo. Pt is mechanically ventilated with ETT 8/24cm at lipline, AC 14, TV 500, FIo2 40%, PEEP +5, SPo2 98%, chest rise and fall noted. NGT on right nare, clamped/NPO. Afebrile. LAC 20G running D5NS w/20KCL @150cc/hr and LW 22G patent and asymptomatic. ABD dressing intact, clean and dry. JUNE drain on right lower abd sanguineous drainage noted. Bilateral soft wrist restraints, skin intact and warm to touch. SR to ST, highest HR 110. BP stable. No s/sx of acute distress noted. F/C draining cloudy yellow urine well. Bed locked, alarmed and in lowest position. Will continue plan of care.
--- NOTE | 2018-07-13 07:25 | NUR ---
Received pt on AC, placed pt on IMV PS 8 per weaning protocol. Pt currently tolerating. Also dropped pt's FiO2 to 30%. Will continue to monitor. Addendum: 07/13/18 at 0727 by JOSE LOVE RT Amended: Links added.
--- NOTE | 2018-07-13 08:38 | General Progress Note ---
Assessment/Plan Status: not improved Assessment/Plan #Sepsis #Acute purulent gangrenous cholecystitis. #acute Hypoxic respiratory failure #Acute Metabolic Encephalopathy - due to alcohol withdrawal and sepsis - zosyn - improving - bcx x 2 ngtd - s/p ercp 07/12 - gen surg consulted, s/p lap jocelyn converted to open jocelyn 07/12 - kept intubated and sedated, unable to extubate postop, could not maintain airway - cont vent management, simv, tv 500, peep 5, fio2 30%, wean vent as tolerated - pain control - appreciate surg recs - fluids - not tolerating diet #Pleural Effusions - b/l - per mrcp - stable - intubated now #Alcohol Pancreatitis #Intractable abdominal pain #intractable nausea/vomiting #Transaminitis #Alcohol Hepatitis #Alcohol withdrawals #Fatty Liver Disease #Hepatitis C - LFTs 446/532 - Lipase 687 - due to alcohol abuse - INR 1.0 - discriminant function, 4.5 , no need for steroids - US abd completed and reviewed, showing fatty liver disease. GS present, no obstruction noted - ppi - PRN antiemetics, zofran prn - Banana bag - close lab monitoring - IVF - CIWA, requiring ativan - increased librium dosing - monitor carefully for withdrawals #Failure to thrive - due to alcohol withdrawals - alcoholic pancreatitis - pending CT abd/pelvis - fluids - poor PO intake - workday financials consultant consult #Alcohol Abuse - educated on cessation for 15 mins - patient states he understands and will try to quit - RN notified to monitor carefully with withdrawals - prn ativan - ciwa - started librium, increased frequency today #Uncontrolled HTN - clonidine 0.1 mg po prn - amlodipine 10mg qday - due to withdrawals #Tobacco abuse - smokes 1ppd - educated on smoking cessation for over 15 mins, states he understands the risks of smoking and will try to quit diet: NPO DVT Prophylaxis: SCD, HSQ Code Status: Full Hospital Classification Declaration: Based on this initial evaluation, and depending on the patient's clinical course, I anticipate that this patient will require hospitalization for 2-3days for alcohol abuse, pancreatitis and close respiratory/hemodynamic monitoring. I have reviewed all labs, imaging and medications Disposition: Once the patient is stable to leave the hospital, I anticipate the patient will likely be discharged to the following environment: home I spent over 50 minutes on this patient's case, and over 50% of that time was spent on counseling and/or care . Discussed with patient/family, nursing staff , SW/CM regarding clinical status, treatment course, and disposition planning. over 30 mins of critical care time have been spent on this patient including vent management Time of note may not reflect time of encounter. ------- Date of Discussion: 07/03/18 A [id number] discussion with the patient regarding the patient's advanced care planning took place during this hospitalization on the above date. The discussion included the explanation and discussion of advance directives and associated forms/documents, as well as the patient's current code status. We also discussed at length the patient's medical conditions (both acute and chronic), general prognosis, treatment options, and goals of care. The following summarizes the discussion: Advance Care Planning/Goals of Care: - Will attempt to fill out an AD and/or POLST with the patient prior to discharge, if not already completed - Continue current evaluation and management of any acute and chronic medical issues - Will continue to support the patient/family - Will continue to discuss both short- and long-term goals of care DPOA-HC/Surrogate Decision Maker: : Bonnie Crenshaw Code Status: Full Code AD Forms/Documents Completed: Deferred A total of 34 minutes was spent on this discussion, including counseling, answering questions, and completing, if any, pertinent advanced care planning forms/documents. Subjective Date patient seen: Jul 13, 2018 Time patient seen: 08:30 Allergies: Coded Allergies: No Known Allergies (Unverified , 06/01/16) Subjective f/u pancreatitis, cholecystitis, sepsis, alcoholic hepatitis, nausea, alcohol abuse, alcohol withdrawals s/p ercp 07/12 and subsequent open jocelyn, full of pus, gangrenous jocelny, drain left in intubated, sedated no acute events overnight stable ROS: unable to obtain due patient being intubated/sedated Objective Last 24 Hour Vital Signs Date Time Temp Pulse Resp B/P (MAP) Pulse Ox O2 Delivery O2 Flow Rate FiO2 07/13/18 07:39 100 21 98 Mechanical Ventilator 30 07/13/18 07:24 101 21 98 Mechanical Ventilator 40 07/13/18 07:24 30 07/13/18 07:20 98 24 30 07/13/18 07:00 98.0 105 24 117/81 97 Mechanical Ventilator 40 07/13/18 06:58 101 21 98 07/13/18 06:30 105 24 115/77 97 Mechanical Ventilator 40 07/13/18 06:00 98.2 101 21 120/78 98 40 07/13/18 05:30 97 18 106/69 100 Mechanical Ventilator 40 07/13/18 05:28 99 19 40 07/13/18 05:00 98 22 118/77 97 Mechanical Ventilator 40 07/13/18 04:30 94 16 103/66 97 Mechanical Ventilator 40 07/13/18 04:00 93 07/13/18 04:00 Mechanical Ventilator 07/13/18 04:00 40 07/13/18 04:00 98.3 93 19 111/70 Mechanical Ventilator 40 07/13/18 03:30 86 14 90/64 99 Mechanical Ventilator 40 07/13/18 03:25 86 16 98 Mechanical Ventilator 40 07/13/18 03:15 40 07/13/18 03:15 87 17 98 Mechanical Ventilator 40 07/13/18 03:14 87 17 40 07/13/18 03:00 85 18 98/69 99 Mechanical Ventilator 40 07/13/18 02:30 85 19 88/64 99 Mechanical Ventilator 40 07/13/18 02:00 40 07/13/18 02:00 87 16 86/62 99 Mechanical Ventilator 40 07/13/18 01:30 97 14 80/58 97 Mechanical Ventilator 50 07/13/18 01:00 100 15 83/58 96 Mechanical Ventilator 50 07/13/18 01:00 94 21 50 07/13/18 00:30 111 22 109/74 95 Mechanical Ventilator 50 07/13/18 00:00 50 07/13/18 00:00 111 07/13/18 00:00 97.4 106 23 102/75 93 Mechanical Ventilator 50 07/13/18 00:00 Mechanical Ventilator 07/12/18 23:45 105 21 112/86 95 Mechanical Ventilator 50 07/12/18 23:30 98 18 103/71 97 Mechanical Ventilator 50 07/12/18 23:20 96 14 98 Mechanical Ventilator 50 07/12/18 23:15 95 14 101/68 97 Mechanical Ventilator 50 07/12/18 23:09 50 07/12/18 23:09 95 19 94 Mechanical Ventilator 50 07/12/18 23:08 95 19 50 07/12/18 23:00 94 19 105/71 94 Mechanical Ventilator 50 07/12/18 22:45 93 19 105/71 94 Mechanical Ventilator 50 07/12/18 22:30 87 17 102/70 97 Mechanical Ventilator 50 07/12/18 22:15 87 17 107/70 96 Mechanical Ventilator 50 07/12/18 22:00 86 16 100/66 96 Mechanical Ventilator 50 07/12/18 21:45 86 16 105/71 96 Mechanical Ventilator 50 07/12/18 21:30 86 17 96/65 95 Mechanical Ventilator 50 07/12/18 21:15 90 16 100/66 93 Mechanical Ventilator 50 07/12/18 21:00 50 07/12/18 21:00 100.9 88 14 90/64 95 Mechanical Ventilator 50 07/12/18 21:00 100/66 07/12/18 21:00 88 07/12/18 20:59 88 14 50 07/12/18 20:57 83 20 100 07/12/18 20:54 86 14 96/65 96 Mechanical Ventilator 50 07/12/18 20:49 90 15 121/77 96 Mechanical Ventilator 50 07/12/18 20:00 Mechanical Ventilator 07/12/18 19:59 Nasal Cannula 07/12/18 19:59 Nasal Cannula 07/12/18 16:00 97.8 104 18 125/81 (96) 94 07/12/18 16:00 Room Air 07/12/18 16:00 105 07/12/18 15:57 Nasal Cannula 07/12/18 15:56 Nasal Cannula 07/12/18 15:06 88 18 Nasal Cannula 3.0 07/12/18 13:45 100.6 143 20 136/64 (88) 90 07/12/18 13:45 143 07/12/18 13:24 98.4 146 24 133/86 94 Nasal Cannula 3 07/12/18 13:19 138/87 07/12/18 13:15 146 25 142/92 94 Nasal Cannula 3 07/12/18 13:00 149 26 138/89 94 Nasal Cannula 3 07/12/18 12:50 139 25 125/88 94 Nasal Cannula 3 07/12/18 12:40 143 26 127/90 94 Nasal Cannula 3 07/12/18 12:30 134 24 125/89 95 Nasal Cannula 3 07/12/18 12:20 145 26 136/88 95 Nasal Cannula 3 07/12/18 12:05 144 28 137/93 94 Nasal Cannula 3 07/12/18 11:50 136 25 142/92 96 Simple Mask 6 07/12/18 11:47 100 18 97 07/12/18 11:45 99 20 117/79 98 Simple Mask 6 07/12/18 11:44 102 18 97 07/12/18 11:40 101 16 124/86 96 Simple Mask 6 07/12/18 11:32 98.2 102 14 113/77 98 Simple Mask 6 07/12/18 09:00 Room Air Intake and Output 07/12/18 07/13/18 18:59 06:59 Intake Total 2187.5 ml 1345.5 ml Output Total 500 ml 765 ml Balance 1687.5 ml 580.5 ml IV Total 2187.5 ml 1345.5 ml Output Urine Total 500 ml 705 ml Drainage Total 60 ml Laboratory Tests 07/12/18 21:26: Arterial Blood pH 7.321L, Arterial Blood Partial Pressure CO2 42.4, Arterial Blood Partial Pressure O2 88.7, Arterial Blood HCO3 21.4L, Arterial Blood Oxygen Saturation 95.8, Arterial Blood Base Excess -4.5L, Michael Test Positive 07/13/18 04:30: White Blood Count 22.9*H, Red Blood Count 3.16L, Hemoglobin 11.6L, Hematocrit 34.2L, Mean Corpuscular Volume 108H, Mean Corpuscular Hemoglobin 36.9H, Mean Corpuscular Hemoglobin Concent 34.0, Red Cell Distribution Width 12.4, Platelet Count 432, Mean Platelet Volume 6.7, Neutrophils (%) (Auto) , Lymphocytes (%) ( Auto) , Monocytes (%) (Auto) , Eosinophils (%) (Auto) , Basophils (%) (Auto) , Neutrophils % (Manual) [Pending], Lymphocytes % (Manual) [Pending], Platelet Estimate [Pending], Platelet Morphology [Pending], Sodium Level 141, Potassium Level 4.1, Chloride Level 107, Carbon Dioxide Level 23, Anion Gap 11, Blood Urea Nitrogen 15, Creatinine 1.1, Estimat Glomerular Filtration Rate > 60, Glucose Level 252#H, Calcium Level 7.5L, Magnesium Level 2.0, Total Bilirubin 0.7, Aspartate Amino Transf (AST/SGOT) 74H, Alanine Aminotransferase (ALT/SGPT) 85H, Alkaline Phosphatase 114, Total Protein 6.3L, Albumin 1.7L, Globulin 4.6, Albumin/Globulin Ratio 0.4L, Amylase Level 142H, Lipase 864H Height (Feet): 5 Height (Inches): 9.00 Weight (Pounds): 160 Objective General Appearance: intubated/sedated Lines, tubes and drains: peripheral HEENT: normocephalic, atraumatic, anicteric, PERRL, other - dry mucous membrane Neck: non-tender, normal alignment Respiratory/Chest: chest wall non-tender, mechanical breath sounds, no respiratory distress, no accessory muscle use Cardiovascular/Chest: normal peripheral pulses, normal rate, regular rhythm Abdomen: normal bowel sounds, soft, no organomegaly, no mass, drain in place, Extremities: normal range of motion, non-tender, normal inspection, no calf tenderness, normal capillary refill, non-pitting. +asterixis Skin Exam: normal pigmentation, warm/dry Neurologic: no motor/sensory deficits, alert, oriented x 3, responsive, normal mood/affect Eulogio Siddiqi MD Jul 13, 2018 08:38
[2018-07-13] MEDS: Pantoprazole Inj IVP SCH ×2 (08:49→20:33)
[2018-07-13] MEDS: Docusate 100mg cap ORAL SCH ×2 (08:49→17:25)
[2018-07-13] MEDS: chlordiazePOXIDE 25mg Cap ORAL SCH ×4 (08:49→20:34)
[2018-07-13] MEDS: Heparin 5000 units/ml inj SUBQ SCH ×2 (08:50→20:34)
[2018-07-13] MEDS ORDERED: Docusate 100mg cap ORAL SCH (09:00)
--- NOTE | 2018-07-13 09:54 | NUR ---
NURSE NOTES: Pt kept dry and clean. Turned and repositioned. Suction provided. Surgical dressing c/d/i, 20cc sanguineous drainage from JUNE noted.
--- NOTE | 2018-07-13 10:46 | NUR ---
Social Work This SW met with patient who is currently in the ICU, intubated, sedated at this time. Patient has a history of substance abuse, does not want treatment and planning to follow up with [facility] services upon discharge. Patient was making own decisions prior (independent with all ADLs and ambulation). Pending current progress at this time. This Sw left a message with significant other, Bonnie Chow @ [phone]. Awaiting call return at this time; Sw to follow up with patient as well, when more alert/oriented regarding any discharge planning needs (as needed).
--- NOTE | 2018-07-13 11:01 | NUR ---
NURSE NOTES: Pt tolerating well on SIMV w/ PS 8, Fio2 30%. SPO2 100%, RR 22. Will continue to monitor.
--- NOTE | 2018-07-13 11:02 | Diagnostic Imaging Report ---
Indication: Post nasogastric tube placement Technique: One view of the upper abdomen Comparison: none Findings: There is a nasogastric tube in place, tip projected level gastric antrum body junction, in good position. Surgical clips are seen in the gastroesophageal junction region. Surgical skin kenneth are seen in the right upper quadrant. There is a plastic endobiliary stent. Contrast, presumably from prior abdomen CT and/or ERCP, is seen within the colon. What may be a surgical drain is seen in the right upper quadrant. The visualized bowel gas pattern is unremarkable Impression: Satisfactory nasogastric intubation Postsurgical changes, as described
--- NOTE | 2018-07-13 11:54 | GI Progress Note ---
Assessment/Plan Problems: (1) Abnormal LFTs ICD Codes: R79.89 - Other specified abnormal findings of blood chemistry SNOMED: 224081347 (2) Cholecystitis, acute ICD Codes: K81.0 - Acute cholecystitis SNOMED: 67847944 (3) Hepatitis C ICD Codes: B19.20 - Unspecified viral hepatitis C without hepatic coma SNOMED: 62967608 (4) Fatty liver ICD Codes: K76.0 - Fatty (change of) liver, not elsewhere classified SNOMED: 197106446 (5) Alcoholic pancreatitis ICD Codes: K85.20 - Alcohol induced acute pancreatitis without necrosis or infection SNOMED: 923805276 (6) Pancreatitis, acute ICD Codes: K85.90 - Acute pancreatitis without necrosis or infection, unspecified SNOMED: 948906755 Status: stable Status Narrative Discussed with Dr. Yip. Assessment/Plan SUMMARY OF FINDINGS: 1. 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 2. Status post ERCP with sphincterotomy, balloon assistance sludge and some pus extraction from the common bile duct and then stent placement. s/p open jocelyn, now in ICU RECOMMENDATIONS: follow up surgical recommendations maintain NPO + IVFs ppi prn transfusions abx The patient will need repeat ERCP in 6 to 8 weeks for stent removal. The patient was seen and examined at bedside and all new and available data was reviewed in the patients chart. I agree with the above findings, impression and plan. (Patient seen earlier today. Signature stamp does not reflect patient encounter time.). - Toñito Yip MD Subjective Subjective limited Objective Last 24 Hour Vital Signs Date Time Temp Pulse Resp B/P (MAP) Pulse Ox O2 Delivery O2 Flow Rate FiO2 07/13/18 11:40 109 26 96 Mechanical Ventilator 30 07/13/18 11:40 109 25 30 07/13/18 11:40 30 07/13/18 11:00 106 20 134/77 100 Mechanical Ventilator 40 07/13/18 11:00 106 24 30 07/13/18 10:20 101 20 30 07/13/18 10:00 101 20 109/70 96 Mechanical Ventilator 40 07/13/18 09:00 104 20 107/70 97 Mechanical Ventilator 40 07/13/18 08:52 99 24 30 07/13/18 08:49 109 83/56 07/13/18 08:00 98.6 109 21 123/81 98 Mechanical Ventilator 40 07/13/18 08:00 103 07/13/18 08:00 Mechanical Ventilator 07/13/18 07:39 100 21 98 Mechanical Ventilator 30 07/13/18 07:24 101 21 98 Mechanical Ventilator 30 07/13/18 07:24 30 07/13/18 07:20 98 24 30 07/13/18 07:00 98.0 105 24 117/81 97 Mechanical Ventilator 40 07/13/18 06:58 101 21 98 07/13/18 06:30 105 24 115/77 97 Mechanical Ventilator 40 07/13/18 06:00 98.2 101 21 120/78 98 40 07/13/18 05:30 97 18 106/69 100 Mechanical Ventilator 40 07/13/18 05:28 99 19 40 07/13/18 05:00 98 22 118/77 97 Mechanical Ventilator 40 07/13/18 04:30 94 16 103/66 97 Mechanical Ventilator 40 07/13/18 04:00 93 07/13/18 04:00 Mechanical Ventilator 07/13/18 04:00 40 07/13/18 04:00 98.3 93 19 111/70 Mechanical Ventilator 40 07/13/18 03:30 86 14 90/64 99 Mechanical Ventilator 40 07/13/18 03:25 86 16 98 Mechanical Ventilator 40 07/13/18 03:15 40 07/13/18 03:15 87 17 98 Mechanical Ventilator 40 07/13/18 03:14 87 17 40 07/13/18 03:00 85 18 98/69 99 Mechanical Ventilator 40 07/13/18 02:30 85 19 88/64 99 Mechanical Ventilator 40 07/13/18 02:00 40 07/13/18 02:00 87 16 86/62 99 Mechanical Ventilator 40 07/13/18 01:30 97 14 80/58 97 Mechanical Ventilator 50 07/13/18 01:00 100 15 83/58 96 Mechanical Ventilator 50 07/13/18 01:00 94 21 50 07/13/18 00:30 111 22 109/74 95 Mechanical Ventilator 50 07/13/18 00:00 50 07/13/18 00:00 111 07/13/18 00:00 97.4 106 23 102/75 93 Mechanical Ventilator 50 07/13/18 00:00 Mechanical Ventilator 07/12/18 23:45 105 21 112/86 95 Mechanical Ventilator 50 07/12/18 23:30 98 18 103/71 97 Mechanical Ventilator 50 07/12/18 23:20 96 14 98 Mechanical Ventilator 50 07/12/18 23:15 95 14 101/68 97 Mechanical Ventilator 50 07/12/18 23:09 50 07/12/18 23:09 95 19 94 Mechanical Ventilator 50 07/12/18 23:08 95 19 50 07/12/18 23:00 94 19 105/71 94 Mechanical Ventilator 50 07/12/18 22:45 93 19 105/71 94 Mechanical Ventilator 50 07/12/18 22:30 87 17 102/70 97 Mechanical Ventilator 50 07/12/18 22:15 87 17 107/70 96 Mechanical Ventilator 50 07/12/18 22:00 86 16 100/66 96 Mechanical Ventilator 50 07/12/18 21:45 86 16 105/71 96 Mechanical Ventilator 50 07/12/18 21:30 86 17 96/65 95 Mechanical Ventilator 50 07/12/18 21:15 90 16 100/66 93 Mechanical Ventilator 50 07/12/18 21:00 50 07/12/18 21:00 100.9 88 14 90/64 95 Mechanical Ventilator 50 07/12/18 21:00 100/66 07/12/18 21:00 88 07/12/18 20:59 88 14 50 07/12/18 20:57 83 20 100 07/12/18 20:54 86 14 96/65 96 Mechanical Ventilator 50 07/12/18 20:49 90 15 121/77 96 Mechanical Ventilator 50 07/12/18 20:00 Mechanical Ventilator 07/12/18 19:59 Nasal Cannula 07/12/18 19:59 Nasal Cannula 07/12/18 16:00 97.8 104 18 125/81 (96) 94 07/12/18 16:00 Room Air 07/12/18 16:00 105 07/12/18 15:57 Nasal Cannula 07/12/18 15:56 Nasal Cannula 07/12/18 15:06 88 18 Nasal Cannula 3.0 07/12/18 13:45 100.6 143 20 136/64 (88) 90 07/12/18 13:45 143 07/12/18 13:24 98.4 146 24 133/86 94 Nasal Cannula 3 07/12/18 13:19 138/87 07/12/18 13:15 146 25 142/92 94 Nasal Cannula 3 07/12/18 13:00 149 26 138/89 94 Nasal Cannula 3 07/12/18 12:50 139 25 125/88 94 Nasal Cannula 3 07/12/18 12:40 143 26 127/90 94 Nasal Cannula 3 07/12/18 12:30 134 24 125/89 95 Nasal Cannula 3 07/12/18 12:20 145 26 136/88 95 Nasal Cannula 3 07/12/18 12:05 144 28 137/93 94 Nasal Cannula 3 07/12/18 11:50 136 25 142/92 96 Simple Mask 6 Intake and Output 07/12/18 07/13/18 18:59 06:59 Intake Total 2187.5 ml 1345.5 ml Output Total 500 ml 765 ml Balance 1687.5 ml 580.5 ml IV Total 2187.5 ml 1345.5 ml Output Urine Total 500 ml 705 ml Drainage Total 60 ml Laboratory Tests Test 07/12/18 21:26 07/13/18 04:30 Arterial Blood pH 7.321 (7.350-7.450) Arterial Blood Partial Pressure CO2 42.4 mmHg (35.0-45.0) Arterial Blood Partial Pressure O2 88.7 mmHg (75.0-100.0) Arterial Blood HCO3 21.4 mmol/L (22.0-26.0) L Arterial Blood Oxygen Saturation 95.8 % (95-100) Arterial Blood Base Excess -4.5 (-2-2) L Michael Test Positive White Blood Count 22.9 K/UL (4.8-10.8) *H Red Blood Count 3.16 M/UL (4.70-6.10) L Hemoglobin 11.6 G/DL (14.2-18.0) L Hematocrit 34.2 % (42.0-52.0) L Mean Corpuscular Volume 108 FL (80-99) H Mean Corpuscular Hemoglobin 36.9 PG (27.0-31.0) H Mean Corpuscular Hemoglobin Concent 34.0 G/DL (32.0-36.0) Red Cell Distribution Width 12.4 % (11.6-14.8) Platelet Count 432 K/UL (150-450) Mean Platelet Volume 6.7 FL (6.5-10.1) Neutrophils (%) (Auto) % (45.0-75.0) Lymphocytes (%) (Auto) % (20.0-45.0) Monocytes (%) (Auto) % (1.0-10.0) Eosinophils (%) (Auto) % (0.0-3.0) Basophils (%) (Auto) % (0.0-2.0) Differential Total Cells Counted 100 Neutrophils % (Manual) 67 % (45-75) Lymphocytes % (Manual) 2 % (20-45) L Monocytes % (Manual) 4 % (1-10) Eosinophils % (Manual) 0 % (0-3) Basophils % (Manual) 0 % (0-2) Myelocytes % 2 % (0-0) H Band Neutrophils 25 % (0-8) H Platelet Estimate Adequate Platelet Morphology Normal Macrocytosis 2+ Sodium Level 141 MMOL/L (136-145) Potassium Level 4.1 MMOL/L (3.5-5.1) Chloride Level 107 MMOL/L (98-107) Carbon Dioxide Level 23 MMOL/L (21-32) Anion Gap 11 mmol/L (5-15) Blood Urea Nitrogen 15 mg/dL (7-18) Creatinine 1.1 MG/DL (0.55-1.30) Estimat Glomerular Filtration Rate > 60 mL/min (>60) Glucose Level 252 MG/DL (74-106) #H Calcium Level 7.5 MG/DL (8.5-10.1) L Magnesium Level 2.0 MG/DL (1.8-2.4) Total Bilirubin 0.7 MG/DL (0.2-1.0) Aspartate Amino Transf (AST/SGOT) 74 U/L (15-37) H Alanine Aminotransferase (ALT/SGPT) 85 U/L (12-78) H Alkaline Phosphatase 114 U/L (46-116) Total Protein 6.3 G/DL (6.4-8.2) L Albumin 1.7 G/DL (3.4-5.0) L Globulin 4.6 g/dL Albumin/Globulin Ratio 0.4 (1.0-2.7) L Amylase Level 142 U/L (25-115) H Lipase 864 U/L (73-393) H Height (Feet): 5 Height (Inches): 9.00 Weight (Pounds): 160 General Appearance: WD/WN, no apparent distress, alert Cardiovascular: normal rate Respiratory/Chest: normal breath sounds, no respiratory distress, other - mechanical vent Abdominal Exam: normal bowel sounds, non tender, soft Extremities: non-tender Sonja Neely NP Jul 13, 2018 11:54
[2018-07-13] MEDS: Zosyn 4.5gm q8h **Extended infusion IVPB SCH ×4 (12:52→20:33)
--- NOTE | 2018-07-13 13:29 | General Progress Note ---
Assessment/Plan Assessment/Plan # Thrombocytopenia is likely related to underlying reactive processs from pancreatitis, acute, as well as alcoholic intoxication and myelosuppression --> also patient has a history of hepatitis C from prior admission --> smear has been reviewed --> heparin sq is okay if needed for dvt ppx # Erythrocytosis is likely related to dehydration --> hgb goal >7, no evidence of bleeding currently --> given ivf already # Leukocytosis no e/o annie infection --> could be due to reactive process v cholecystitis --> wbc trend: 22--> --> peripheral smear has been reviewed --> ercp tomorrow per surg/gi # Pancreatitis with alcohol abuse --> recommend etoh cessation --> amylase and lipase prn # Transaminitis --> likely related to etoh abuse --> in past seen by gi # Alcohol abuse -- recommend cessation The timing of this note does not necessarily reflect the time of the patient was seen Greatly appreciate consultation! Subjective Constitutional: Denies: no symptoms, chills, diaphoresis, fever, malaise, weakness, other HEENT: Denies: no symptoms, eye pain, blurred vision, tearing, double vision, ear pain, ear discharge, nose pain, nose congestion, throat pain, throat swelling, mouth pain, mouth swelling, other Cardiovascular: Denies: no symptoms, chest pain, edema, irregular heart rate, lightheadedness, palpitations, syncope, other Respiratory: Denies: no symptoms, cough, orthopnea, shortness of breath, SOB with excertion, SOB at rest, sputum, stridor, wheezing, other Gastrointestinal/Abdominal: Denies: no symptoms, abdomen distended, abdominal pain, black stools, tarry stools, blood in stool, constipated, diarrhea, difficulty swallowing, nausea, poor appetite, poor fluid intake, rectal bleeding , vomiting, other Genitourinary: Denies: no symptoms, burning, discharge, frequency, flank pain, hematuria, incontinence, pain, urgency, other Neurologic/Psychiatric: Denies: no symptoms, anxiety, depressed, emotional problems, headache, numbness, paresthesia, pre-existing deficit, seizure, tingling, tremors, weakness, other Endocrine: Denies: no symptoms, excessive sweating, flushing, intolerance to cold, intolerance to heat, increased hunger, increased thirst, increased urine, unexplained weight gain, unexplained weight loss, other Hematologic/Lymphatic: Denies: no symptoms, anemia, easy bleeding, easy bruising, other Allergies: Coded Allergies: No Known Allergies (Unverified , 06/01/16) Subjective 07/05: bp was high today and dc was cancelled until tomorow, on librium 07/06: wbc was high though other counts are better, no f/c 07/10: seen by bedside, heart rate increased, appears agitated, wbc 13.9 07/11: to get ercp tomorrow, surgery and gi following 07/12 ercp, sphincterotomy, stent placement surgery done today, currently having tremors and tachy. wbc 15.9, hgb 14, plt 429 07/13: Pt is intubated, seen by bedside,wbc 22, on abx, no acute distress Objective Last 24 Hour Vital Signs Date Time Temp Pulse Resp B/P (MAP) Pulse Ox O2 Delivery O2 Flow Rate FiO2 07/13/18 13:07 107 20 30 07/13/18 12:00 110 24 98 Mechanical Ventilator 30 07/13/18 11:40 109 26 96 Mechanical Ventilator 30 07/13/18 11:40 109 25 30 07/13/18 11:40 30 07/13/18 11:00 106 20 134/77 100 Mechanical Ventilator 40 07/13/18 11:00 106 24 30 07/13/18 10:20 101 20 30 07/13/18 10:00 101 20 109/70 96 Mechanical Ventilator 40 07/13/18 09:00 104 20 107/70 97 Mechanical Ventilator 40 07/13/18 08:52 99 24 30 07/13/18 08:49 109 83/56 07/13/18 08:00 98.6 109 21 123/81 98 Mechanical Ventilator 40 07/13/18 08:00 103 07/13/18 08:00 Mechanical Ventilator 07/13/18 07:39 100 21 98 Mechanical Ventilator 30 07/13/18 07:24 101 21 98 Mechanical Ventilator 30 07/13/18 07:24 30 07/13/18 07:20 98 24 30 07/13/18 07:00 98.0 105 24 117/81 97 Mechanical Ventilator 40 07/13/18 06:58 101 21 98 07/13/18 06:30 105 24 115/77 97 Mechanical Ventilator 40 07/13/18 06:00 98.2 101 21 120/78 98 40 07/13/18 05:30 97 18 106/69 100 Mechanical Ventilator 40 07/13/18 05:28 99 19 40 07/13/18 05:00 98 22 118/77 97 Mechanical Ventilator 40 07/13/18 04:30 94 16 103/66 97 Mechanical Ventilator 40 07/13/18 04:00 93 07/13/18 04:00 Mechanical Ventilator 07/13/18 04:00 40 07/13/18 04:00 98.3 93 19 111/70 Mechanical Ventilator 40 07/13/18 03:30 86 14 90/64 99 Mechanical Ventilator 40 07/13/18 03:25 86 16 98 Mechanical Ventilator 40 07/13/18 03:15 40 07/13/18 03:15 87 17 98 Mechanical Ventilator 40 07/13/18 03:14 87 17 40 07/13/18 03:00 85 18 98/69 99 Mechanical Ventilator 40 07/13/18 02:30 85 19 88/64 99 Mechanical Ventilator 40 07/13/18 02:00 40 07/13/18 02:00 87 16 86/62 99 Mechanical Ventilator 40 07/13/18 01:30 97 14 80/58 97 Mechanical Ventilator 50 07/13/18 01:00 100 15 83/58 96 Mechanical Ventilator 50 07/13/18 01:00 94 21 50 07/13/18 00:30 111 22 109/74 95 Mechanical Ventilator 50 07/13/18 00:00 50 07/13/18 00:00 111 07/13/18 00:00 97.4 106 23 102/75 93 Mechanical Ventilator 50 07/13/18 00:00 Mechanical Ventilator 07/12/18 23:45 105 21 112/86 95 Mechanical Ventilator 50 07/12/18 23:30 98 18 103/71 97 Mechanical Ventilator 50 07/12/18 23:20 96 14 98 Mechanical Ventilator 50 07/12/18 23:15 95 14 101/68 97 Mechanical Ventilator 50 07/12/18 23:09 50 07/12/18 23:09 95 19 94 Mechanical Ventilator 50 07/12/18 23:08 95 19 50 07/12/18 23:00 94 19 105/71 94 Mechanical Ventilator 50 07/12/18 22:45 93 19 105/71 94 Mechanical Ventilator 50 07/12/18 22:30 87 17 102/70 97 Mechanical Ventilator 50 07/12/18 22:15 87 17 107/70 96 Mechanical Ventilator 50 07/12/18 22:00 86 16 100/66 96 Mechanical Ventilator 50 07/12/18 21:45 86 16 105/71 96 Mechanical Ventilator 50 07/12/18 21:30 86 17 96/65 95 Mechanical Ventilator 50 07/12/18 21:15 90 16 100/66 93 Mechanical Ventilator 50 07/12/18 21:00 50 07/12/18 21:00 100.9 88 14 90/64 95 Mechanical Ventilator 50 07/12/18 21:00 100/66 07/12/18 21:00 88 07/12/18 20:59 88 14 50 07/12/18 20:57 83 20 100 07/12/18 20:54 86 14 96/65 96 Mechanical Ventilator 50 07/12/18 20:49 90 15 121/77 96 Mechanical Ventilator 50 07/12/18 20:00 Mechanical Ventilator 07/12/18 19:59 Nasal Cannula 07/12/18 19:59 Nasal Cannula 07/12/18 16:00 97.8 104 18 125/81 (96) 94 07/12/18 16:00 Room Air 07/12/18 16:00 105 07/12/18 15:57 Nasal Cannula 07/12/18 15:56 Nasal Cannula 07/12/18 15:06 88 18 Nasal Cannula 3.0 07/12/18 13:45 100.6 143 20 136/64 (88) 90 07/12/18 13:45 143 Intake and Output 07/12/18 07/13/18 19:00 07:00 Intake Total 2187.5 ml 1523.0 ml Output Total 500 ml 795 ml Balance 1687.5 ml 728.0 ml IV Total 2187.5 ml 1523.0 ml Output Urine Total 500 ml 735 ml Drainage Total 60 ml Laboratory Tests 07/12/18 21:26: Arterial Blood pH 7.321L, Arterial Blood Partial Pressure CO2 42.4, Arterial Blood Partial Pressure O2 88.7, Arterial Blood HCO3 21.4L, Arterial Blood Oxygen Saturation 95.8, Arterial Blood Base Excess -4.5L, Michael Test Positive 07/13/18 04:30: White Blood Count 22.9*H, Red Blood Count 3.16L, Hemoglobin 11.6L, Hematocrit 34.2L, Mean Corpuscular Volume 108H, Mean Corpuscular Hemoglobin 36.9H, Mean Corpuscular Hemoglobin Concent 34.0, Red Cell Distribution Width 12.4, Platelet Count 432, Mean Platelet Volume 6.7, Neutrophils (%) (Auto) , Lymphocytes (%) ( Auto) , Monocytes (%) (Auto) , Eosinophils (%) (Auto) , Basophils (%) (Auto) , Differential Total Cells Counted 100, Neutrophils % (Manual) 67, Lymphocytes % ( Manual) 2L, Monocytes % (Manual) 4, Eosinophils % (Manual) 0, Basophils % ( Manual) 0, Myelocytes % 2H, Band Neutrophils 25H, Platelet Estimate Adequate, Platelet Morphology Normal, Macrocytosis 2+, Sodium Level 141, Potassium Level 4.1, Chloride Level 107, Carbon Dioxide Level 23, Anion Gap 11, Blood Urea Nitrogen 15, Creatinine 1.1, Estimat Glomerular Filtration Rate > 60, Glucose Level 252#H, Calcium Level 7.5L, Magnesium Level 2.0, Total Bilirubin 0.7, Aspartate Amino Transf (AST/SGOT) 74H, Alanine Aminotransferase (ALT/SGPT) 85H, Alkaline Phosphatase 114, Total Protein 6.3L, Albumin 1.7L, Globulin 4.6, Albumin/Globulin Ratio 0.4L, Amylase Level 142H, Lipase 864H 07/13/18 11:47: Arterial Blood pH 7.490H, Arterial Blood Partial Pressure CO2 27.8L, Arterial Blood Partial Pressure O2 69.4L, Arterial Blood HCO3 20.7L, Arterial Blood Oxygen Saturation 94.2L, Arterial Blood Base Excess -1.7, Michael Test Positive Height (Feet): 5 Height (Inches): 9.00 Weight (Pounds): 160 Objective Physical Exam General Appearance: A+O x3, NAD HEENT: normocephalic, atraumatic Neck: non-tender, normal alignment Respiratory/Chest: chest wall non-tender, lungs clear Cardiovascular/Chest: normal peripheral pulses, normal rate Abdomen: normal bowel sounds, non tender Extremities: normal range of motion Guy Salazar MD Jul 13, 2018 13:29
--- NOTE | 2018-07-13 13:38 | NUR ---
RD ASSESSMENT & RECOMMENDATIONS SEE CARE ACTIVITY FOR COMPLETE ASSESSMENT DAILY ESTIMATED NEEDS: Needs based on Pancreatitis, 72.6kg 25-30 kcals/kg 1054-0453 total kcals 1-1.5 g protein/kg 73-109 g total protein 25-30 mL/kg 3684-6321 total fluid mLs NUTRITION DIAGNOSIS: * Altered nutrition-related lab values R/T liver dysfunction, pancreatitis, clinical condition as evidenced by elev LFTs, trend down, elev T bili, now wnl, , Hep C antibody >11, elev lipase (864), low Na (130-> wnl), low K 3.3. * Swallowing difficulty R/T dysphagia, decreased alertness, respiratory status as evidenced by previously recommended NPO per [employer], now post op, orally intubated and unable to be extubated in ICU. CURRENT DIET:NPO PO DIET RECOMMENDATIONS: Diet per surgeon s/p extubation ENTERAL NUTRITION RECOMMENDATIONS: CONSULT RD FOR TF IF PT REMAINS INTUBATED AND GI FUNCTION RETURNS IN THE NEXT 2-3 DAYS. PARENTERAL NUTRITION RECOMMENDATIONS: CONSULT RD FOR TPN IF PT UNABLE TO USE GI FOR FEEDS IN THE NEXT 2-3 DAYS. ADDITIONAL RECOMMENDATIONS: 1) Monitor NPO status- mostly NPO/CLD status x 11 days (1 day of soft diet) 2) When on CLD, add Ensure CLEAR TID (250 kcal each) 3) Consider TPN if unable to toleratefeeds via GI in the next 2-3 days 4) Calibrated bedscale wt for accurate CBW 5) Monitor BGs, need for hypoglycemic agents- A1C 5.8 . .
--- NOTE | 2018-07-13 13:40 | NUR ---
NURSE NOTES: No s/sx of acute distress noted. Pt tolerating weaning well. Kept dry and clean. turned and repositioned. IVF infusing well.
--- NOTE | 2018-07-13 14:05 | General Progress Note ---
Progress Note Progress Note s/p open jocelyn gangrenous purulent cholecystitis drain with dark red output wound okay still intubated on vent labs noted cont abx wean vent as tolerated drain care leave dressings [place] Antonio Jul 13, 2018 14:05
--- NOTE | 2018-07-13 15:05 | NUR ---
NURSE NOTES: Patient vomitted green emesis, notified Dr. Antonio. Received orders to put patient in low intermittent suction.
--- NOTE | 2018-07-13 16:58 | NUR ---
Pt remains on AC mode. SBT trials were done. Pt tolerated fairly well, However pt is very drowsy and does not easily follow commands. Tube is secure and in place. Alarms are on and audible. No s/s of resp distress noted. Addendum: 07/13/18 at 1700 by JOSE LOVE RT Amended: Links added.
--- NOTE | 2018-07-13 17:33 | NUR ---
NURSE NOTES: Pt's mentation still the same, a little more awake than this morning but still lethargic and unable to follow simple commands. Completed weaning trial but noted tachypnea RR 28-30 around 1530.
--- NOTE | 2018-07-13 19:24 | NUR ---
HAND-OFF: Report given to Jose Ho RN using SBAR. No change in condition.
--- NOTE | 2018-07-13 19:55 | NUR ---
NURSE NOTES: Patient weakly open eyes to voice, did not followed commands, able to move extremities, on ETT to vent ac14/ tv500 /fio2 30% /peep 5, o2 saturation 100% noted, NGT with lower intermittent suction, dark greenish brown color outed, abdomen soft with JUNE drain x1, serosanguineous discharge outed, cleaned and dried abdominal dressing status, F/C intact and patent, yellow urine outed, 2 point soft restraints for safety, SCD'S to both legs, provided call light within reach, made lower bed position, will continue to monitor.
[2018-07-13] MEDS ORDERED: Milk of Magnesia 30ml Ud ORAL PRN (21:00)
[2018-07-13] MEDS: Thiamine HCl 100 MG in D5W 55 ML IVPB SCH (21:39)
--- NOTE | 2018-07-13 22:00 | NUR ---
NURSE NOTES: Repositioned, released restraints and reapplied for safety, will continue to monitor.
[2018-07-14] VITALS (24 sets, daily range): BP systolic 80–134; BP diastolic 53–85
--- NOTE | 2018-07-14 | NUR ---
NURSE NOTES: No pain or distress noted, JUNE intact and patent, sanguinous discharge outed, will continuous to monitor.
--- NOTE | 2018-07-14 02:00 | NUR ---
NURSE NOTES: Patient asleep status, oral care was done and repositioned.
[2018-07-14] MEDS: Hydromorphone 0.5mg/0.5ml inj IVP PRN (02:39)
--- NOTE | 2018-07-14 02:39 | NUR ---
NURSE NOTES: Patient open eyes, 3/10 of pain noted that given Dilaudid 0.5mg by ivp slowly as prn ordered, will continue to monitor.
[2018-07-14] MEDS: Albuterol/Ipratropium 3ml neb HHN SCH ×6 (03:00→23:21)
--- NOTE | 2018-07-14 03:14 | NUR ---
NURSE NOTES: Called Dr. Kinsey that Dr. Lala on the line, informed MD regarding pt's HR 150's/min, EKG was done at 0305am : SVT with occasional premature ventricular complexes. Received new order and carried out.
[2018-07-14] MEDS ORDERED: Metoprolol 25mg tab ORAL ONE (03:30)
[2018-07-14] MEDS: LORazepam Inj 2mg/ml 1ml IV PRN ×2 (03:31→19:49)
[2018-07-14] MEDS: Zosyn 4.5gm q8h **Extended infusion IVPB SCH ×6 (04:52→20:32)
--- NOTE | 2018-07-14 05:20 | NUR ---
NURSE NOTES: Morning care and oral care was done, no bowel movement status.
--- NOTE | 2018-07-14 06:30 | NUR ---
NURSE NOTES: Vital sign stabled, no pain or distress noted at this time, will continue plan of care.
--- NOTE | 2018-07-14 07:12 | NUR ---
HAND-OFF: Report given to GEN/JAVIER.
--- NOTE | 2018-07-14 07:15 | NUR ---
RESPIRATORY NOTE: Received pt orally intubated with ETT 8.0@ 24cm lips line, secured by anchor fast with current settings: AC 14-500ml-30% FiO2- peep of 5, saturates at 98%, tachypneic RR 24bpm. Sang rhonchi breath sounds present upon auscultation, sxn moderate amount of white rdz secretions without incident. No acute resp distress noted. Alarms are set and audible, vent is plugged into the red outlet, ambu bag is at bedside. Breathing tx given without any adverse effect. Will continue to monitor pt closely.
[2018-07-14 07:28] LABS: HEMATOCRIT 23.8 % (42.0-52.0); MEAN CORPUSCULAR VOLUME 107 FL (80-99); PLATELET COUNT 461 K/UL (150-450); RED BLOOD COUNT 2.22 M/UL (4.70-6.10); RED CELL DISTRIBUTION WIDTH 12.5 % (11.6-14.8); WHITE BLOOD COUNT 18.2 K/UL (4.8-10.8)
[2018-07-14 07:42] LABS: ALANINE AMINOTRANSFERASE 62 U/L (12-78); ALBUMIN 1.6 G/DL (3.4-5.0); ALBUMIN/GLOBULIN RATIO 0.4 (1.0-2.7); ALKALINE PHOSPHATASE 74 U/L (46-116); ANION GAP 9 mmol/L (5-15); ASPARTATE AMINO TRANSFERASE 65 U/L (15-37); BILIRUBIN,TOTAL 0.3 MG/DL (0.2-1.0); BLOOD UREA NITROGEN 9 mg/dL (7-18); CALCIUM 7.6 MG/DL (8.5-10.1); CARBON DIOXIDE 23 MMOL/L (21-32); CHLORIDE 113 MMOL/L (98-107); CREATININE 0.8 MG/DL (0.55-1.30); POTASSIUM 3.6 MMOL/L (3.5-5.1); SODIUM 145 MMOL/L (136-145)
--- NOTE | 2018-07-14 07:45 | NUR ---
NURSE NOTES: Received patient from JAVIER Ho. Patient resting in bed, lethargic. orally intubated, ETT 8.0, 24cm at lip line, AC14, TV 500, Fio2 30%, PEEP 5, saturating 99%. No acute distress noted. Right nare NGT intact and patent, on low intermittent suction. Right abd JUNE drain with serosanguineous drainage noted. abd surgical dressing intact, clean and dry. No s/sx bleeding noted. On SCDs. Serrano cath intact and patent, draining yellow urine by gravity. Pt on bilateral soft wrist restraints, skin intact and warm. Left AC 20G, Left wrist 22G intact, running D5NS w/ 20meq KCl at 150ml/hr. Call light within reach. Bed in lowest position. Call light within reach. Will continue to monitor.
--- NOTE | 2018-07-14 08:25 | General Progress Note ---
Assessment/Plan Problem List: (1) Cholecystitis, acute ICD Codes: K81.0 - Acute cholecystitis SNOMED: 31469488 (2) Abnormal LFTs ICD Codes: R79.89 - Other specified abnormal findings of blood chemistry SNOMED: 628511167 (3) Fatty liver ICD Codes: K76.0 - Fatty (change of) liver, not elsewhere classified SNOMED: 414327227 Assessment/Plan Assessment/Plan SUMMARY OF FINDINGS: 1. 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 2. Status post ERCP with sphincterotomy, balloon assistance sludge and some pus extraction from the common bile duct and then stent placement. s/p open jocelyn, now in ICU RECOMMENDATIONS: follow up surgical recommendations maintain NPO + IVFs ppi prn transfusions abx The patient will need repeat ERCP in 6 to 8 weeks for stent removal. Subjective ROS Limited/Unobtainable: No Allergies: Coded Allergies: No Known Allergies (Unverified , 06/01/16) Objective Last 24 Hour Vital Signs Date Time Temp Pulse Resp B/P (MAP) Pulse Ox O2 Delivery O2 Flow Rate FiO2 07/14/18 08:00 30 07/14/18 08:00 Mechanical Ventilator 07/14/18 07:15 30 07/14/18 07:15 89 25 100 Mechanical Ventilator 30 07/14/18 07:05 88 24 98 Mechanical Ventilator 30 07/14/18 07:03 88 24 30 07/14/18 07:00 94 21 101/64 99 Mechanical Ventilator 30 07/14/18 06:00 83 21 97/59 98 Mechanical Ventilator 30 07/14/18 05:34 83 21 30 07/14/18 05:00 83 21 95/63 98 Mechanical Ventilator 30 07/14/18 04:06 79 07/14/18 04:00 30 07/14/18 04:00 Mechanical Ventilator 07/14/18 04:00 98.0 81 20 93/61 97 Mechanical Ventilator 30 07/14/18 03:35 152 116/71 07/14/18 03:34 151 07/14/18 03:17 Mechanical Ventilator 07/14/18 03:16 149 24 97 Mechanical Ventilator 30 07/14/18 03:15 149 24 30 07/14/18 03:00 99 22 116/71 97 Mechanical Ventilator 30 07/14/18 02:59 153 07/14/18 02:00 104 26 132/69 98 Mechanical Ventilator 30 07/14/18 01:15 101 27 30 07/14/18 01:00 101 28 134/73 99 Mechanical Ventilator 30 07/14/18 00:00 98.1 104 24 123/80 98 Mechanical Ventilator 30 07/14/18 00:00 30 07/14/18 00:00 Mechanical Ventilator 07/13/18 23:34 102 07/13/18 23:26 98 16 100 Mechanical Ventilator 30 07/13/18 23:16 30 07/13/18 23:16 104 26 99 Mechanical Ventilator 30 07/13/18 23:15 104 26 30 07/13/18 23:00 104 24 130/72 97 Mechanical Ventilator 30 07/13/18 22:00 97 27 113/70 97 Mechanical Ventilator 30 07/13/18 21:00 105 25 121/73 97 Mechanical Ventilator 30 07/13/18 21:00 121/73 07/13/18 20:55 104 25 30 07/13/18 20:00 98.9 108 29 132/76 99 Mechanical Ventilator 30 07/13/18 20:00 30 07/13/18 20:00 Mechanical Ventilator 07/13/18 19:32 104 18 100 Mechanical Ventilator 30 07/13/18 19:31 100 07/13/18 19:22 103 27 100 Mechanical Ventilator 30 07/13/18 19:22 30 07/13/18 19:21 103 27 30 07/13/18 19:00 103 25 132/78 100 Mechanical Ventilator 30 07/13/18 18:00 102 21 119/71 100 Mechanical Ventilator 40 07/13/18 17:00 109 20 146/83 97 Mechanical Ventilator 40 07/13/18 16:56 102 27 30 07/13/18 16:00 110 07/13/18 16:00 Mechanical Ventilator 07/13/18 16:00 99.9 112 20 141/80 95 Mechanical Ventilator 40 07/13/18 15:31 106 17 100 Mechanical Ventilator 30 07/13/18 15:24 110 24 97 Mechanical Ventilator 30 07/13/18 15:24 30 07/13/18 15:00 109 20 136/20 100 Mechanical Ventilator 40 07/13/18 14:58 110 27 30 07/13/18 14:00 102 20 116/72 100 Mechanical Ventilator 40 07/13/18 14:00 99.8 07/13/18 13:07 107 20 30 1/25/19 13:00 104 20 115/71 100 Mechanical Ventilator 40 07/13/18 12:00 110 24 98 Mechanical Ventilator 30 07/13/18 12:00 Mechanical Ventilator 07/13/18 12:00 106 07/13/18 12:00 100.3 105 20 115/77 100 Mechanical Ventilator 40 07/13/18 11:40 109 26 96 Mechanical Ventilator 30 07/13/18 11:40 109 25 30 07/13/18 11:40 30 07/13/18 11:00 106 20 134/77 100 Mechanical Ventilator 40 07/13/18 11:00 106 24 30 07/13/18 10:20 101 20 30 07/13/18 10:00 101 20 109/70 96 Mechanical Ventilator 40 07/13/18 09:00 104 20 107/70 97 Mechanical Ventilator 40 07/13/18 08:52 99 24 30 07/13/18 08:49 109 83/56 Intake and Output 07/13/18 07/14/18 19:00 07:00 Intake Total 1800 ml 2054.5 ml Output Total 995 ml 670 ml Balance 805 ml 1384.5 ml IV Total 1800 ml 2024.5 ml Other 30 ml Output Urine Total 710 ml 550 ml Gastric Drainage Total 80 ml Emesis 200 ml Drainage Total 85 ml 40 ml Laboratory Tests 07/13/18 11:47: Arterial Blood pH 7.490H, Arterial Blood Partial Pressure CO2 27.8L, Arterial Blood Partial Pressure O2 69.4L, Arterial Blood HCO3 20.7L, Arterial Blood Oxygen Saturation 94.2L, Arterial Blood Base Excess -1.7, Michael Test Positive 07/14/18 06:40: White Blood Count 18.2H, Red Blood Count 2.22L, Hemoglobin 8.0#L, Hematocrit 23.8#L, Mean Corpuscular Volume 107H, Mean Corpuscular Hemoglobin 36.2H, Mean Corpuscular Hemoglobin Concent 33.8, Red Cell Distribution Width 12.5, Platelet Count 461H, Mean Platelet Volume 7.1, Neutrophils (%) (Auto) , Lymphocytes (%) ( Auto) , Monocytes (%) (Auto) , Eosinophils (%) (Auto) , Basophils (%) (Auto) , Neutrophils % (Manual) [Pending], Lymphocytes % (Manual) [Pending], Platelet Estimate [Pending], Platelet Morphology [Pending], Sodium Level 145, Potassium Level 3.6, Chloride Level 113H, Carbon Dioxide Level 23, Anion Gap 9, Blood Urea Nitrogen 9, Creatinine 0.8, Estimat Glomerular Filtration Rate > 60, Glucose Level 127#H, Calcium Level 7.6L, Total Bilirubin 0.3, Aspartate Amino Transf (AST/SGOT) 65H, Alanine Aminotransferase (ALT/SGPT) 62, Alkaline Phosphatase 74, Total Protein 6.1L, Albumin 1.6L, Globulin 4.5, Albumin/ Globulin Ratio 0.4L Height (Feet): 5 Height (Inches): 9.00 Weight (Pounds): 160 General Appearance: no apparent distress EENT: normal ENT inspection Neck: supple Cardiovascular: tachycardia Respiratory/Chest: decreased breath sounds Abdomen: normal bowel sounds, non tender, soft Extremities: non-tender Toñito Yip MD Jul 14, 2018 08:25
[2018-07-14] MEDS: Pantoprazole Inj IVP SCH ×2 (08:34→20:31)
[2018-07-14] MEDS: chlordiazePOXIDE 25mg Cap ORAL SCH ×4 (08:35→20:33)
[2018-07-14] MEDS: Heparin 5000 units/ml inj SUBQ SCH ×2 (08:38→20:33)
[2018-07-14] MEDS: Docusate 100mg/10ml Liq NG SCH ×2 (08:53→17:45)
--- NOTE | 2018-07-14 09:13 | NUR ---
RESPIRATORY NOTE: Put pt on CPAP PS 10, 30% FiO2 -peep of 5, pt is tolerating well so far. No acute resp distress noted. RN Mikaela Munoz made aware. Will continue to monitor pt closely.
--- NOTE | 2018-07-14 09:39 | General Progress Note ---
Assessment/Plan Assessment/Plan #Sepsis #Acute purulent gangrenous cholecystitis. #acute Hypoxic respiratory failure #Acute Metabolic Encephalopathy - due to alcohol withdrawal and sepsis - zosyn - improving - bcx x 2 ngtd - s/p ercp 07/12 - gen surg consulted, s/p lap jocelyn converted to open jocelyn 07/12 - kept intubated and sedated, unable to extubate postop, could not maintain airway - cont vent management, simv, tv 500, peep 5, fio2 30%, wean vent as tolerated - pain control - appreciate surg recs - fluids - not tolerating diet #Pleural Effusions - b/l - per mrcp - stable - intubated now #Alcohol Pancreatitis #Intractable abdominal pain #intractable nausea/vomiting #Transaminitis #Alcohol Hepatitis #Alcohol withdrawals #Fatty Liver Disease #Hepatitis C - LFTs 446/532 - Lipase 687 - due to alcohol abuse - INR 1.0 - discriminant function, 4.5 , no need for steroids - US abd completed and reviewed, showing fatty liver disease. GS present, no obstruction noted - ppi - PRN antiemetics, zofran prn - Banana bag - close lab monitoring - IVF - CIWA, requiring ativan - increased librium dosing - monitor carefully for withdrawals #Failure to thrive - due to alcohol withdrawals - alcoholic pancreatitis - pending CT abd/pelvis - fluids - poor PO intake - broommaking supervisor consult #Alcohol Abuse - educated on cessation for 15 mins - patient states he understands and will try to quit - RN notified to monitor carefully with withdrawals - prn ativan - ciwa - started librium, increased frequency today #Uncontrolled HTN - clonidine 0.1 mg po prn - amlodipine 10mg qday - due to withdrawals #Tobacco abuse - smokes 1ppd - educated on smoking cessation for over 15 mins, states he understands the risks of smoking and will try to quit diet: NPO DVT Prophylaxis: SCD, HSQ Code Status: Full Hospital Classification Declaration: Based on this initial evaluation, and depending on the patient's clinical course, I anticipate that this patient will require hospitalization for 2-3days for alcohol abuse, pancreatitis and close respiratory/hemodynamic monitoring. I have reviewed all labs, imaging and medications Disposition: Once the patient is stable to leave the hospital, I anticipate the patient will likely be discharged to the following environment: home I spent over 50 minutes on this patient's case, and over 50% of that time was spent on counseling and/or care . Discussed with patient/family, nursing staff , SW/CM regarding clinical status, treatment course, and disposition planning. over 30 mins of critical care time have been spent on this patient including vent management Time of note may not reflect time of encounter. ------- Date of Discussion: 07/03/18 A [id number] discussion with the patient regarding the patient's advanced care planning took place during this hospitalization on the above date. The discussion included the explanation and discussion of advance directives and associated forms/documents, as well as the patient's current code status. We also discussed at length the patient's medical conditions (both acute and chronic), general prognosis, treatment options, and goals of care. The following summarizes the discussion: Advance Care Planning/Goals of Care: - Will attempt to fill out an AD and/or POLST with the patient prior to discharge, if not already completed - Continue current evaluation and management of any acute and chronic medical issues - Will continue to support the patient/family - Will continue to discuss both short- and long-term goals of care DPOA-HC/Surrogate Decision Maker: : Bonnie Crenshaw Code Status: Full Code AD Forms/Documents Completed: Deferred A total of 34 minutes was spent on this discussion, including counseling, answering questions, and completing, if any, pertinent advanced care planning forms/documents. Subjective Date patient seen: Jul 14, 2018 Time patient seen: 09:38 Allergies: Coded Allergies: No Known Allergies (Unverified , 06/01/16) Subjective f/u pancreatitis, cholecystitis, sepsis, alcoholic hepatitis, nausea, alcohol abuse, alcohol withdrawals s/p ercp 07/12 and subsequent open jocelyn, full of pus, gangrenous jocelyn, drain left in intubated, sedated no acute events overnight stable ROS: unable to obtain due patient being intubated/sedated Objective Last 24 Hour Vital Signs Date Time Temp Pulse Resp B/P (MAP) Pulse Ox O2 Delivery O2 Flow Rate FiO2 07/14/18 08:34 94 112/69 07/14/18 08:00 30 07/14/18 08:00 Mechanical Ventilator 07/14/18 08:00 98.0 96 24 112/69 99 Mechanical Ventilator 30 07/14/18 07:15 30 07/14/18 07:15 89 25 100 Mechanical Ventilator 30 07/14/18 07:05 88 24 98 Mechanical Ventilator 30 07/14/18 07:03 88 24 30 07/14/18 07:00 94 21 101/64 99 Mechanical Ventilator 30 07/14/18 06:00 83 21 97/59 98 Mechanical Ventilator 30 07/14/18 05:34 83 21 30 07/14/18 05:00 83 21 95/63 98 Mechanical Ventilator 30 07/14/18 04:06 79 07/14/18 04:00 30 07/14/18 04:00 Mechanical Ventilator 07/14/18 04:00 98.0 81 20 93/61 97 Mechanical Ventilator 30 07/14/18 03:35 152 116/71 07/14/18 03:34 151 07/14/18 03:17 Mechanical Ventilator 07/14/18 03:16 149 24 97 Mechanical Ventilator 30 07/14/18 03:15 149 24 30 07/14/18 03:00 99 22 116/71 97 Mechanical Ventilator 30 07/14/18 02:59 153 07/14/18 02:00 104 26 132/69 98 Mechanical Ventilator 30 07/14/18 01:15 101 27 30 07/14/18 01:00 101 28 134/73 99 Mechanical Ventilator 30 07/14/18 00:00 98.1 104 24 123/80 98 Mechanical Ventilator 30 07/14/18 00:00 30 07/14/18 00:00 Mechanical Ventilator 07/13/18 23:34 102 07/13/18 23:26 98 16 100 Mechanical Ventilator 30 07/13/18 23:16 30 07/13/18 23:16 104 26 99 Mechanical Ventilator 30 07/13/18 23:15 104 26 30 07/13/18 23:00 104 24 130/72 97 Mechanical Ventilator 30 07/13/18 22:00 97 27 113/70 97 Mechanical Ventilator 30 07/13/18 21:00 105 25 121/73 97 Mechanical Ventilator 30 07/13/18 21:00 121/73 07/13/18 20:55 104 25 30 07/13/18 20:00 98.9 108 29 132/76 99 Mechanical Ventilator 30 07/13/18 20:00 30 07/13/18 20:00 Mechanical Ventilator 07/13/18 19:32 104 18 100 Mechanical Ventilator 30 07/13/18 19:31 100 07/13/18 19:22 103 27 100 Mechanical Ventilator 30 07/13/18 19:22 30 07/13/18 19:21 103 27 30 07/13/18 19:00 103 25 132/78 100 Mechanical Ventilator 30 07/13/18 18:00 102 21 119/71 100 Mechanical Ventilator 40 07/13/18 17:00 109 20 146/83 97 Mechanical Ventilator 40 07/13/18 16:56 102 27 30 07/13/18 16:00 110 07/13/18 16:00 Mechanical Ventilator 07/13/18 16:00 99.9 112 20 141/80 95 Mechanical Ventilator 40 07/13/18 15:31 106 17 100 Mechanical Ventilator 30 07/13/18 15:24 110 24 97 Mechanical Ventilator 30 07/13/18 15:24 30 07/13/18 15:00 109 20 136/20 100 Mechanical Ventilator 40 07/13/18 14:58 110 27 30 07/13/18 14:00 102 20 116/72 100 Mechanical Ventilator 40 07/13/18 14:00 99.8 07/13/18 13:07 107 20 30 07/13/18 13:00 104 20 115/71 100 Mechanical Ventilator 40 07/13/18 12:00 110 24 98 Mechanical Ventilator 30 07/13/18 12:00 Mechanical Ventilator 07/13/18 12:00 106 07/13/18 12:00 100.3 105 20 115/77 100 Mechanical Ventilator 40 07/13/18 11:40 109 26 96 Mechanical Ventilator 30 07/13/18 11:40 109 25 30 07/13/18 11:40 30 07/13/18 11:00 106 20 134/77 100 Mechanical Ventilator 40 07/13/18 11:00 106 24 30 07/13/18 10:20 101 20 30 07/13/18 10:00 101 20 109/70 96 Mechanical Ventilator 40 Intake and Output 07/13/18 07/14/18 19:00 07:00 Intake Total 1800 ml 2054.5 ml Output Total 995 ml 670 ml Balance 805 ml 1384.5 ml IV Total 1800 ml 2024.5 ml Other 30 ml Output Urine Total 710 ml 550 ml Gastric Drainage Total 80 ml Emesis 200 ml Drainage Total 85 ml 40 ml Laboratory Tests 07/13/18 11:47: Arterial Blood pH 7.490H, Arterial Blood Partial Pressure CO2 27.8L, Arterial Blood Partial Pressure O2 69.4L, Arterial Blood HCO3 20.7L, Arterial Blood Oxygen Saturation 94.2L, Arterial Blood Base Excess -1.7, Michael Test Positive 07/14/18 06:40: White Blood Count 18.2H, Red Blood Count 2.22L, Hemoglobin 8.0#L, Hematocrit 23.8#L, Mean Corpuscular Volume 107H, Mean Corpuscular Hemoglobin 36.2H, Mean Corpuscular Hemoglobin Concent 33.8, Red Cell Distribution Width 12.5, Platelet Count 461H, Mean Platelet Volume 7.1, Neutrophils (%) (Auto) , Lymphocytes (%) ( Auto) , Monocytes (%) (Auto) , Eosinophils (%) (Auto) , Basophils (%) (Auto) , Differential Total Cells Counted 100, Neutrophils % (Manual) 81H, Lymphocytes % (Manual) 5L, Monocytes % (Manual) 6, Eosinophils % (Manual) 0, Basophils % ( Manual) 0, Band Neutrophils 8, Platelet Estimate IncreasedH, Platelet Morphology Normal, Macrocytosis 1+, Sodium Level 145, Potassium Level 3.6, Chloride Level 113H, Carbon Dioxide Level 23, Anion Gap 9, Blood Urea Nitrogen 9 , Creatinine 0.8, Estimat Glomerular Filtration Rate > 60, Glucose Level 127#H, Calcium Level 7.6L, Total Bilirubin 0.3, Aspartate Amino Transf (AST/SGOT) 65H, Alanine Aminotransferase (ALT/SGPT) 62, Alkaline Phosphatase 74, Total Protein 6.1L, Albumin 1.6L, Globulin 4.5, Albumin/Globulin Ratio 0.4L Height (Feet): 5 Height (Inches): 9.00 Weight (Pounds): 160 Objective General Appearance: intubated/sedated Lines, tubes and drains: peripheral HEENT: normocephalic, atraumatic, anicteric, PERRL, other - dry mucous membrane Neck: non-tender, normal alignment Respiratory/Chest: chest wall non-tender, mechanical breath sounds, no respiratory distress, no accessory muscle use Cardiovascular/Chest: normal peripheral pulses, normal rate, regular rhythm Abdomen: normal bowel sounds, soft, no organomegaly, no mass, drain in place, Extremities: normal range of motion, non-tender, normal inspection, no calf tenderness, normal capillary refill, non-pitting. +asterixis Skin Exam: normal pigmentation, warm/dry Neurologic: no motor/sensory deficits, alert, oriented x 3, responsive, normal mood/affect Eulogio Siddiqi MD Jul 14, 2018 09:38
--- NOTE | 2018-07-14 09:45 | NUR ---
NURSE NOTES: Dr. Siddiqi at bedside, updated on pt's condition. No new orders at this time.
--- NOTE | 2018-07-14 10:30 | NUR ---
NURSE NOTES: Patient was repositioned. oral care and melchor care provided. no respiratory distress noted at this time. VSS.
--- NOTE | 2018-07-14 10:39 | NUR ---
RESPIRATORY NOTE: Decreased PS to 8, pt is still tolerating well. RN Mikaela Munoz made aware.Will continue to monitor.
[2018-07-14] MEDS ORDERED: fentaNYL 100 mcg/2 mL IV ONE (10:50)
[2018-07-14] MEDS ORDERED: Midazolam 2mg/2ml Inj ONE (10:50)
--- NOTE | 2018-07-14 13:00 | NUR ---
NURSE NOTES: ABG ordered under wrong MD, ABG was ordered by Dr. Siddiqi.
--- NOTE | 2018-07-14 13:15 | NUR ---
RESPIRATORY NOTE: ABG drawn without incident, reported to RN Mikaela Munoz, and put in the system. Awaiting for MD's order. Will continue to monitor closely in the meantime.
--- NOTE | 2018-07-14 13:37 | NUR ---
NURSE NOTES: Notified Dr. Siddiqi regarding ABG results, no new orders at this time.
--- NOTE | 2018-07-14 13:50 | NUR ---
NURSE NOTES: pt pulled out NGT, reinserted NGT to right nare, pt tolerated well. awaiting for KUB result to confirm placement.
--- NOTE | 2018-07-14 14:53 | Diagnostic Imaging Report ---
EXAM: XR Abdomen, 1 View CLINICAL HISTORY: NGT TECHNIQUE: Frontal supine view of the abdomen/pelvis. COMPARISON: No relevant prior studies available. FINDINGS: Gastrointestinal tract: Residual contrast in the colon. Bones/joints: No acute fracture. Soft tissues: Skin kenneth. Surgical clips in the upper abdomen. Vasculature: Biliary stent. Tubes, lines and devices: Enteric tube in the stomach. IMPRESSION: Enteric tube in the stomach.
--- NOTE | 2018-07-14 15:55 | NUR ---
NURSE NOTES: Patient resting in bed, no s/sx of pain at this time. abd dressing intact and patent, NGT to low intermittent suction, greenish drainage noted.
--- NOTE | 2018-07-14 16:26 | NUR ---
NURSE NOTES: pt had small soft bowel movement. pt kept clean and dry.
--- NOTE | 2018-07-14 17:00 | NUR ---
RESPIRATORY NOTE: Put pt back on AC mode with the same previous setting due to increasing WOB RR> 40bpm, low Vt, high HR 110 bpm. Pt is calm and resting now. No SOB or acute resp distress noted. Will continue to monitor. Addendum: 07/14/18 at 1702 by Bandar Engle Jackson RT JAVIER Munoz made aware.
[2018-07-14] MEDS ORDERED: Sterile Water Irrig 1000ml IRRIG ONE (17:15)
[2018-07-14] MEDS ORDERED: NS 275ml ONE (17:15)
[2018-07-14] MEDS ORDERED: Tubing IV Secondary IV ONE (17:15)
--- NOTE | 2018-07-14 18:20 | NUR ---
NURSE NOTES: patient had small BMx1, kept clean and dry.
--- NOTE | 2018-07-14 18:37 | General Progress Note ---
Progress Note Progress Note s/p open jocelyn gangrenous purulent cholecystitis drain with dark red output wound okay still intubated on vent labs noted hb trending down if continues to drop tomorrow transfuse prbc. cont abx wean vent as tolerated drain care leave dressings Sal[place] Antonio Jul 14, 2018 18:37
--- NOTE | 2018-07-14 19:08 | NUR ---
HAND-OFF: Report given to JAVIER Ho.
--- NOTE | 2018-07-14 19:45 | NUR ---
NURSE NOTES: Patient weakly open eyes to voice, did not followed commands, able to move extremities, on ETT to vent ac14/ tv500 /fio2 30% /peep 5, o2 saturation 98% noted, NGT to right nares with lower intermittent suction status, dark greenish outed, abdomen soft with JUNE drain x1, sanguineous discharge outed, cleaned and dried abdominal dressing status, F/C intact and patent, yellow urine outed, 2 point soft restraints for safety, on SCD'S to both legs, peripheral line to left ac and forearm, intact and patent, ongoing D5% NS W/ KCL 20meq at 150ml/hr via left ac peripheral line, provided call light within reach, made lower bed position, will continue to monitor.
--- NOTE | 2018-07-14 19:49 | NUR ---
NURSE NOTES: Patient anxious, resistance to care, given Ativan 1mg by ivp slowly as prn ordered, will continue to monitor.
--- NOTE | 2018-07-14 19:49 | General Progress Note ---
Assessment/Plan Assessment/Plan Anemia of chronic disease (or of iron deficiency) due to underlying chronic medical issues, multifactorial --> Anemia workup has been ordered --> No evidence of hemolysis is noted, peripheral smear has been reviewed. --> Hgb goal >7. Transfuse prn. --> Epogen or iron at this time is not particularly indicated --> Medications have been reviewed # Thrombocytopenia is likely related to underlying reactive processs from pancreatitis, acute, as well as alcoholic intoxication and myelosuppression --> also patient has a history of hepatitis C from prior admission --> smear has been reviewed --> heparin sq is okay if needed for dvt ppx # Erythrocytosis is likely related to dehydration --> hgb goal >7, no evidence of bleeding currently --> given ivf already # Leukocytosis no e/o annie infection --> could be due to reactive process v cholecystitis --> wbc trend: 22--> --> peripheral smear has been reviewed --> ercp tomorrow per surg/gi # Pancreatitis with alcohol abuse --> recommend etoh cessation --> amylase and lipase prn # Transaminitis --> likely related to etoh abuse --> in past seen by gi # Alcohol abuse -- recommend cessation The timing of this note does not necessarily reflect the time of the patient was seen Greatly appreciate consultation! Subjective Constitutional: Denies: no symptoms, chills, diaphoresis, fever, malaise, weakness, other HEENT: Denies: no symptoms, eye pain, blurred vision, tearing, double vision, ear pain, ear discharge, nose pain, nose congestion, throat pain, throat swelling, mouth pain, mouth swelling, other Cardiovascular: Denies: no symptoms, chest pain, edema, irregular heart rate, lightheadedness, palpitations, syncope, other Respiratory: Denies: no symptoms, cough, orthopnea, shortness of breath, SOB with excertion, SOB at rest, sputum, stridor, wheezing, other Gastrointestinal/Abdominal: Denies: no symptoms, abdomen distended, abdominal pain, black stools, tarry stools, blood in stool, constipated, diarrhea, difficulty swallowing, nausea, poor appetite, poor fluid intake, rectal bleeding , vomiting, other Genitourinary: Denies: no symptoms, burning, discharge, frequency, flank pain, hematuria, incontinence, pain, urgency, other Neurologic/Psychiatric: Denies: no symptoms, anxiety, depressed, emotional problems, headache, numbness, paresthesia, pre-existing deficit, seizure, tingling, tremors, weakness, other Endocrine: Denies: no symptoms, excessive sweating, flushing, intolerance to cold, intolerance to heat, increased hunger, increased thirst, increased urine, unexplained weight gain, unexplained weight loss, other Hematologic/Lymphatic: Denies: no symptoms, anemia, easy bleeding, easy bruising, other Allergies: Coded Allergies: No Known Allergies (Unverified , 06/01/16) Subjective 07/05: bp was high today and dc was cancelled until tomorow, on librium 07/06: wbc was high though other counts are better, no f/c 07/10: seen by bedside, heart rate increased, appears agitated, wbc 13.9 07/11: to get ercp tomorrow, surgery and gi following 07/12 ercp, sphincterotomy, stent placement surgery done today, currently having tremors and tachy. wbc 15.9, hgb 14, plt 429 07/13: Pt is intubated, seen by bedside,wbc 22, on abx, no acute distress 07/14: awake and comfortable, still intubated on vent, labs noted hb trending down, wbc 18, hgb 8. Objective Last 24 Hour Vital Signs Date Time Temp Pulse Resp B/P (MAP) Pulse Ox O2 Delivery O2 Flow Rate FiO2 07/14/18 19:00 106 25 116/75 100 Mechanical Ventilator 30 07/14/18 18:56 108 28 97 Mechanical Ventilator 30 07/14/18 18:55 106 26 100 Mechanical Ventilator 30 07/14/18 18:55 108 28 30 07/14/18 18:00 105 25 130/70 98 Mechanical Ventilator 30 07/14/18 17:00 105 27 122/85 100 Mechanical Ventilator 30 07/14/18 16:53 112 29 30 07/14/18 16:52 110 40 30 07/14/18 16:00 112 07/14/18 16:00 98.9 113 25 125/69 98 Mechanical Ventilator 30 07/14/18 16:00 Mechanical Ventilator 07/14/18 16:00 30 07/14/18 15:03 107 25 100 Mechanical Ventilator 30 07/14/18 15:00 113 25 130/74 99 Mechanical Ventilator 30 07/14/18 14:53 102 26 98 Mechanical Ventilator 30 07/14/18 14:52 103 26 30 07/14/18 14:00 103 25 125/69 97 Mechanical Ventilator 30 07/14/18 13:00 100 24 116/70 100 Mechanical Ventilator 30 07/14/18 13:00 95 21 30 07/14/18 12:00 99 07/14/18 12:00 99.3 100 22 116/68 97 Mechanical Ventilator 30 07/14/18 12:00 Mechanical Ventilator 07/14/18 11:00 100 23 111/61 98 Mechanical Ventilator 30 07/14/18 10:50 07/14/18 10:50 101 21 97 Mechanical Ventilator 30 07/14/18 10:39 90 19 30 07/14/18 10:39 90 19 98 Mechanical Ventilator 30 07/14/18 10:00 96 21 103/62 98 Mechanical Ventilator 30 07/14/18 09:13 93 21 30 07/14/18 09:00 93 19 115/65 98 Mechanical Ventilator 30 07/14/18 09:00 30 07/14/18 08:34 94 112/69 07/14/18 08:00 30 07/14/18 08:00 Mechanical Ventilator 07/14/18 08:00 98.0 96 24 112/69 99 Mechanical Ventilator 30 07/14/18 08:00 89 07/14/18 07:15 07/14/18 07:15 89 25 100 Mechanical Ventilator 30 07/14/18 07:05 88 24 98 Mechanical Ventilator 30 07/14/18 07:03 88 24 30 07/14/18 07:00 94 21 101/64 99 Mechanical Ventilator 30 07/14/18 06:00 83 21 97/59 98 Mechanical Ventilator 30 07/14/18 05:34 83 21 30 07/14/18 05:00 83 21 95/63 98 Mechanical Ventilator 30 07/14/18 04:06 79 07/14/18 04:00 30 07/14/18 04:00 Mechanical Ventilator 07/14/18 04:00 98.0 81 20 93/61 97 Mechanical Ventilator 30 07/14/18 03:35 152 116/71 07/14/18 03:34 151 07/14/18 03:17 Mechanical Ventilator 07/14/18 03:16 149 24 97 Mechanical Ventilator 30 07/14/18 03:15 149 24 30 07/14/18 03:00 99 22 116/71 97 Mechanical Ventilator 30 07/14/18 02:59 153 07/14/18 02:00 104 26 132/69 98 Mechanical Ventilator 30 07/14/18 01:15 101 27 30 07/14/18 01:00 101 28 134/73 99 Mechanical Ventilator 30 07/14/18 00:00 98.1 104 24 123/80 98 Mechanical Ventilator 30 07/14/18 00:00 30 07/14/18 00:00 Mechanical Ventilator 07/13/18 23:34 102 07/13/18 23:26 98 16 100 Mechanical Ventilator 30 07/13/18 23:16 30 07/13/18 23:16 104 26 99 Mechanical Ventilator 30 07/13/18 23:15 104 26 30 07/13/18 23:00 104 24 130/72 97 Mechanical Ventilator 30 07/13/18 22:00 97 27 113/70 97 Mechanical Ventilator 30 07/13/18 21:00 105 25 121/73 97 Mechanical Ventilator 30 07/13/18 21:00 121/73 07/13/18 20:55 104 25 30 07/13/18 20:00 98.9 108 29 132/76 99 Mechanical Ventilator 30 07/13/18 20:00 30 07/13/18 20:00 Mechanical Ventilator Intake and Output 07/13/18 07/14/18 19:00 07:00 Intake Total 1800 ml 2054.5 ml Output Total 995 ml 670 ml Balance 805 ml 1384.5 ml IV Total 1800 ml 2024.5 ml Other 30 ml Output Urine Total 710 ml 550 ml Gastric Drainage Total 80 ml Emesis 200 ml Drainage Total 85 ml 40 ml Laboratory Tests 07/14/18 06:40: White Blood Count 18.2H, Red Blood Count 2.22L, Hemoglobin 8.0#L, Hematocrit 23.8#L, Mean Corpuscular Volume 107H, Mean Corpuscular Hemoglobin 36.2H, Mean Corpuscular Hemoglobin Concent 33.8, Red Cell Distribution Width 12.5, Platelet Count 461H, Mean Platelet Volume 7.1, Neutrophils (%) (Auto) , Lymphocytes (%) ( Auto) , Monocytes (%) (Auto) , Eosinophils (%) (Auto) , Basophils (%) (Auto) , Differential Total Cells Counted 100, Neutrophils % (Manual) 81H, Lymphocytes % (Manual) 5L, Monocytes % (Manual) 6, Eosinophils % (Manual) 0, Basophils % ( Manual) 0, Band Neutrophils 8, Platelet Estimate IncreasedH, Platelet Morphology Normal, Macrocytosis 1+, Sodium Level 145, Potassium Level 3.6, Chloride Level 113H, Carbon Dioxide Level 23, Anion Gap 9, Blood Urea Nitrogen 9 , Creatinine 0.8, Estimat Glomerular Filtration Rate > 60, Glucose Level 127#H, Calcium Level 7.6L, Total Bilirubin 0.3, Aspartate Amino Transf (AST/SGOT) 65H, Alanine Aminotransferase (ALT/SGPT) 62, Alkaline Phosphatase 74, Total Protein 6.1L, Albumin 1.6L, Globulin 4.5, Albumin/Globulin Ratio 0.4L 07/14/18 13:15: Arterial Blood pH 7.496H, Arterial Blood Partial Pressure CO2 29.6L, Arterial Blood Partial Pressure O2 80.9, Arterial Blood HCO3 22.4, Arterial Blood Oxygen Saturation 95.7, Arterial Blood Base Excess -0.5, Michael Test Positive Height (Feet): 5 Height (Inches): 9.00 Weight (Pounds): 160 Objective Physical Exam General Appearance: A+O x3, NAD HEENT: normocephalic, atraumatic Neck: non-tender, normal alignment Respiratory/Chest: chest wall non-tender, lungs clear Cardiovascular/Chest: normal peripheral pulses, normal rate Abdomen: normal bowel sounds, non tender Extremities: normal range of motion Guy Salazar MD Jul 14, 2018 19:49
--- NOTE | 2018-07-14 20:08 | NUR ---
NURSE NOTES: Patient has had pain, given Dilaudid 2mg by ivp slowly as orn for severe pain, will continue to monitor.
[2018-07-14] MEDS: Metoprolol 25mg tab NG SCH (20:30)
[2018-07-14] MEDS: Thiamine HCl 100 MG in D5W 55 ML IVPB SCH (21:48)
--- NOTE | 2018-07-14 22:00 | NUR ---
NURSE NOTES: Released restraints and reapplied for safety.
--- NOTE | 2018-07-14 22:30 | NUR ---
NURSE NOTES: Stopped NGT lower intermittent suction that started Jevity 1.2 at 10ml/hr as ordered, goal is 55ml/hr, will continue to monitor.
[2018-07-15] VITALS (24 sets, daily range): BP systolic 84–151; BP diastolic 50–86
--- NOTE | 2018-07-15 00:30 | NUR ---
NURSE NOTES: No n/v or distress noted, kept hob over 30 degree, will continue to monitor.
--- NOTE | 2018-07-15 02:00 | NUR ---
NURSE NOTES: Patient asleep status, no distress noted.
[2018-07-15] MEDS: Albuterol/Ipratropium 3ml neb HHN SCH ×6 (03:32→22:53)
--- NOTE | 2018-07-15 04:30 | NUR ---
NURSE NOTES: Morning care and oral care was done, no bowel movement at this time.
--- NOTE | 2018-07-15 04:50 | NUR ---
NURSE NOTES: Heart rate 140[address] st noted after blood drawn, will continue to monitor.
[2018-07-15] MEDS: Zosyn 4.5gm q8h **Extended infusion IVPB SCH ×6 (04:59→21:00)
--- NOTE | 2018-07-15 05:29 | NUR ---
NURSE NOTES: Given Dilaudid 1mg by ivp slowly as prn for pain, will continue to monitor.
--- NOTE | 2018-07-15 06:25 | NUR ---
NURSE NOTES: Patient asleep status, no pain or distress noted at this time.
[2018-07-15 07:04] LABS: HEMATOCRIT 20.4 % (42.0-52.0); MEAN CORPUSCULAR VOLUME 109 FL (80-99); PLATELET COUNT 596 K/UL (150-450); RED BLOOD COUNT 1.87 M/UL (4.70-6.10); RED CELL DISTRIBUTION WIDTH 12.9 % (11.6-14.8); WHITE BLOOD COUNT 16.4 K/UL (4.8-10.8)
--- NOTE | 2018-07-15 07:09 | NUR ---
HAND-OFF: Report given to GEN/JAVIER.
--- NOTE | 2018-07-15 07:16 | NUR ---
RESPIRATORY NOTE: Patient received mechanically ventilated on PB 840 with current ordered vent settings. Patient is orally intubated with ETT size 8.0 with 24cm at the lip. The ETT tube is secured with an anchor fast. Patient presents with bilateral coarse breath sounds and small amount of thick pale/yellow secretions were suctioned without incident. There is an ambu bag available at the bedside and the vent is connected to a red outlet. Vent alarms are functional and audible. Will continue to monitor.
[2018-07-15 07:26] LABS: HEMOGLOBIN 6.8 G/DL (14.2-18.0)
[2018-07-15 07:32] LABS: ALANINE AMINOTRANSFERASE 60 U/L (12-78); ALBUMIN 1.7 G/DL (3.4-5.0); ALBUMIN/GLOBULIN RATIO 0.4 (1.0-2.7); ALKALINE PHOSPHATASE 83 U/L (46-116); AMYLASE 150 U/L (25-115); ANION GAP 10 mmol/L (5-15); ASPARTATE AMINO TRANSFERASE 58 U/L (15-37); BILIRUBIN,TOTAL 0.3 MG/DL (0.2-1.0); BLOOD UREA NITROGEN 8 mg/dL (7-18); CALCIUM 7.9 MG/DL (8.5-10.1); CARBON DIOXIDE 22 MMOL/L (21-32); CHLORIDE 113 MMOL/L (98-107); CREATININE 0.9 MG/DL (0.55-1.30); POTASSIUM 3.5 MMOL/L (3.5-5.1); SODIUM 145 MMOL/L (136-145)
--- NOTE | 2018-07-15 07:45 | NUR ---
NURSE NOTES: Received patient from JAVIER Ho. Patient resting in bed, briefly opens eyes to voice, unable to follow commands. Orally intubated, ETT 8.0, 24cm at lip line, AC14, TV 500, Fio2 30%, PEEP 5, saturating 100%. No acute distress noted. Right nare NGT intact and patent, running Jevity 1.2 @20ml/hr, 45ml residual. Right abd JUNE drain with serosanguineous drainage noted. Abd surgical dressing intact, clean and dry. No s/sx bleeding noted. On SCDs. Serrano cath intact and patent, draining yellow urine by gravity. Pt on bilateral soft wrist restraints, skin intact and warm. Left AC 20G, Left wrist 22G intact, running D5NS w/ 20meq KCl at 150ml/hr. Call light within reach. Bed in lowest position. Call light within reach. Will continue to monitor.
--- NOTE | 2018-07-15 08:11 | General Progress Note ---
Assessment/Plan Problem List: (1) Cholecystitis, acute ICD Codes: K81.0 - Acute cholecystitis SNOMED: 12592958 (2) Abnormal LFTs ICD Codes: R79.89 - Other specified abnormal findings of blood chemistry SNOMED: 258595739 (3) Fatty liver ICD Codes: K76.0 - Fatty (change of) liver, not elsewhere classified SNOMED: 579750186 Assessment/Plan Assessment/Plan SUMMARY OF FINDINGS: 1. 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 2. Status post ERCP with sphincterotomy, balloon assistance sludge and some pus extraction from the common bile duct and then stent placement. s/p open jocelyn, now in ICU RECOMMENDATIONS: follow up surgical recommendations tube feeding ordered per surg ppi prn transfusions abx The patient will need repeat ERCP in 6 to 8 weeks for stent removal. Subjective ROS Limited/Unobtainable: No Allergies: Coded Allergies: No Known Allergies (Unverified , 06/01/16) Objective Last 24 Hour Vital Signs Date Time Temp Pulse Resp B/P (MAP) Pulse Ox O2 Delivery O2 Flow Rate FiO2 07/15/18 07:37 90 20 100 Mechanical Ventilator 30 07/15/18 07:27 88 21 100 Mechanical Ventilator 30 07/15/18 07:12 88 21 30 07/15/18 07:00 87 16 85/57 100 Mechanical Ventilator 30 07/15/18 06:00 92 14 88/50 100 Mechanical Ventilator 30 07/15/18 05:15 139 21 30 07/15/18 05:00 138 24 133/68 99 Mechanical Ventilator 30 07/15/18 04:00 30 07/15/18 04:00 98.5 90 16 122/64 100 Mechanical Ventilator 30 07/15/18 04:00 Mechanical Ventilator 07/15/18 03:44 90 07/15/18 03:41 89 16 100 Mechanical Ventilator 30 07/15/18 03:31 87 20 98 Mechanical Ventilator 30 07/15/18 03:30 87 20 30 07/15/18 03:00 86 15 119/64 99 Mechanical Ventilator 30 07/15/18 02:00 81 15 108/61 99 Mechanical Ventilator 30 07/15/18 01:33 81 25 30 07/15/18 01:00 80 14 110/65 100 Mechanical Ventilator 30 07/15/18 00:00 98.4 78 14 84/53 100 Mechanical Ventilator 30 07/15/18 00:00 Mechanical Ventilator 07/15/18 00:00 30 07/14/18 23:30 77 22 100 Mechanical Ventilator 30 07/14/18 23:20 75 17 100 Mechanical Ventilator 30 07/14/18 23:19 75 07/14/18 23:19 75 17 30 07/14/18 23:00 75 13 80/54 100 Mechanical Ventilator 30 07/14/18 22:00 76 13 82/53 98 Mechanical Ventilator 30 07/14/18 21:00 120 17 86/64 98 Mechanical Ventilator 30 07/14/18 21:00 129/79 07/14/18 20:57 126 21 30 07/14/18 20:30 137 129/79 07/14/18 20:00 98.8 144 16 87/59 98 Mechanical Ventilator 30 07/14/18 20:00 30 07/14/18 20:00 Mechanical Ventilator 07/14/18 19:33 111 07/14/18 19:00 106 25 116/75 100 Mechanical Ventilator 30 07/14/18 18:56 108 28 97 Mechanical Ventilator 30 07/14/18 18:55 106 26 100 Mechanical Ventilator 30 07/14/18 18:55 108 28 30 07/14/18 18:00 105 25 130/70 98 Mechanical Ventilator 30 07/14/18 17:00 105 27 122/85 100 Mechanical Ventilator 30 07/14/18 16:53 112 29 30 07/14/18 16:52 110 40 30 07/14/18 16:00 112 07/14/18 16:00 98.9 113 25 125/69 98 Mechanical Ventilator 30 07/14/18 16:00 Mechanical Ventilator 07/14/18 16:00 30 07/14/18 15:03 107 25 100 Mechanical Ventilator 30 07/14/18 15:00 113 25 130/74 99 Mechanical Ventilator 30 07/14/18 14:53 102 26 98 Mechanical Ventilator 30 07/14/18 14:52 103 26 30 07/14/18 14:00 103 25 125/69 97 Mechanical Ventilator 30 07/14/18 13:00 100 24 116/70 100 Mechanical Ventilator 30 07/14/18 13:00 95 21 30 07/14/18 12:00 99 07/14/18 12:00 99.3 100 22 116/68 97 Mechanical Ventilator 30 07/14/18 12:00 Mechanical Ventilator 07/14/18 11:00 100 23 111/61 98 Mechanical Ventilator 30 07/14/18 10:50 07/14/18 10:50 101 21 97 Mechanical Ventilator 30 07/14/18 10:39 90 19 30 07/14/18 10:39 90 19 98 Mechanical Ventilator 30 07/14/18 10:00 96 21 103/62 98 Mechanical Ventilator 30 07/14/18 09:13 93 21 30 07/14/18 09:00 93 19 115/65 98 Mechanical Ventilator 30 07/14/18 09:00 30 07/14/18 08:34 94 112/69 Intake and Output 07/14/18 07/15/18 19:00 07:00 Intake Total 2058.0 ml 2186.0 ml Output Total 1375 ml 880 ml Balance 683.0 ml 1306.0 ml IV Total 1928.0 ml 2021.0 ml Tube Feeding 115 ml Other 130 ml 50 ml Output Urine Total 1140 ml 810 ml Gastric Drainage Total 200 ml 50 ml Drainage Total 35 ml 20 ml # Bowel Movements 2 Laboratory Tests 07/14/18 13:15: Arterial Blood pH 7.496H, Arterial Blood Partial Pressure CO2 29.6L, Arterial Blood Partial Pressure O2 80.9, Arterial Blood HCO3 22.4, Arterial Blood Oxygen Saturation 95.7, Arterial Blood Base Excess -0.5, Michael Test Positive 07/15/18 05:00: White Blood Count 16.4H, Red Blood Count 1.87L, Hemoglobin 6.8*L, Hematocrit 20.4L, Mean Corpuscular Volume 109H, Mean Corpuscular Hemoglobin 36.3H, Mean Corpuscular Hemoglobin Concent 33.3, Red Cell Distribution Width 12.9, Platelet Count 596H, Mean Platelet Volume 6.6, Neutrophils (%) (Auto) , Lymphocytes (%) ( Auto) , Monocytes (%) (Auto) , Eosinophils (%) (Auto) , Basophils (%) (Auto) , Neutrophils % (Manual) [Pending], Lymphocytes % (Manual) [Pending], Platelet Estimate [Pending], Platelet Morphology [Pending], Prothrombin Time 10.9, Prothromb Time International Ratio 1.0, Activated Partial Thromboplast Time 25, Sodium Level 145, Potassium Level 3.5, Chloride Level 113H, Carbon Dioxide Level 22, Anion Gap 10, Blood Urea Nitrogen 8, Creatinine 0.9, Estimat Glomerular Filtration Rate > 60, Glucose Level 104, Calcium Level 7.9L, Total Bilirubin 0.3, Aspartate Amino Transf (AST/SGOT) 58H, Alanine Aminotransferase ( ALT/SGPT) 60, Alkaline Phosphatase 83, Total Protein 6.4, Albumin 1.7L, Globulin 4.7, Albumin/Globulin Ratio 0.4L, Amylase Level 150H, Lipase 1016H Height (Feet): 5 Height (Inches): 9.00 Weight (Pounds): 160 General Appearance: lethargic EENT: normal ENT inspection Neck: supple Cardiovascular: tachycardia Respiratory/Chest: decreased breath sounds Abdomen: hypoactive bowel sounds, distended Extremities: non-tender Toñito Yip MD Jul 15, 2018 08:11
--- NOTE | 2018-07-15 08:14 | General Progress Note ---
Assessment/Plan Problem List: (1) Cholecystitis, acute ICD Codes: K81.0 - Acute cholecystitis SNOMED: 95657770 (2) Abnormal LFTs ICD Codes: R79.89 - Other specified abnormal findings of blood chemistry SNOMED: 744092099 (3) Fatty liver ICD Codes: K76.0 - Fatty (change of) liver, not elsewhere classified SNOMED: 917550296 Assessment/Plan Assessment/Plan SUMMARY OF FINDINGS: 1. 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 2. Status post ERCP with sphincterotomy, balloon assistance sludge and some pus extraction from the common bile duct and then stent placement. s/p open jocelyn, now in ICU RECOMMENDATIONS: follow up surgical recommendations hold NGTF, patient has pancreatitis now ivf keep npo ppi prn transfusions>> 2units for today abx The patient will need repeat ERCP in 6 to 8 weeks for stent removal. Subjective ROS Limited/Unobtainable: No Allergies: Coded Allergies: No Known Allergies (Unverified , 06/01/16) Objective Last 24 Hour Vital Signs Date Time Temp Pulse Resp B/P (MAP) Pulse Ox O2 Delivery O2 Flow Rate FiO2 07/15/18 07:37 90 20 100 Mechanical Ventilator 30 07/15/18 07:27 88 21 100 Mechanical Ventilator 30 07/15/18 07:12 88 21 30 07/15/18 07:00 87 16 85/57 100 Mechanical Ventilator 30 07/15/18 06:00 92 14 88/50 100 Mechanical Ventilator 30 07/15/18 05:15 139 21 30 07/15/18 05:00 138 24 133/68 99 Mechanical Ventilator 30 07/15/18 04:00 30 07/15/18 04:00 98.5 90 16 122/64 100 Mechanical Ventilator 30 07/15/18 04:00 Mechanical Ventilator 07/15/18 03:44 90 07/15/18 03:41 89 16 100 Mechanical Ventilator 30 07/15/18 03:31 87 20 98 Mechanical Ventilator 30 07/15/18 03:30 87 20 30 07/15/18 03:00 86 15 119/64 99 Mechanical Ventilator 30 07/15/18 02:00 81 15 108/61 99 Mechanical Ventilator 30 07/15/18 01:33 81 25 30 07/15/18 01:00 80 14 110/65 100 Mechanical Ventilator 30 07/15/18 00:00 98.4 78 14 84/53 100 Mechanical Ventilator 30 07/15/18 00:00 Mechanical Ventilator 07/15/18 00:00 30 07/14/18 23:30 77 22 100 Mechanical Ventilator 30 07/14/18 23:20 75 17 100 Mechanical Ventilator 30 07/14/18 23:19 75 07/14/18 23:19 75 17 30 07/14/18 23:00 75 13 80/54 100 Mechanical Ventilator 30 07/14/18 22:00 76 13 82/53 98 Mechanical Ventilator 30 07/14/18 21:00 120 17 86/64 98 Mechanical Ventilator 30 07/14/18 21:00 129/79 07/14/18 20:57 126 21 30 07/14/18 20:30 137 129/79 07/14/18 20:00 98.8 144 16 87/59 98 Mechanical Ventilator 30 07/14/18 20:00 30 07/14/18 20:00 Mechanical Ventilator 07/14/18 19:33 111 07/14/18 19:00 106 25 116/75 100 Mechanical Ventilator 30 07/14/18 18:56 108 28 97 Mechanical Ventilator 30 07/14/18 18:55 106 26 100 Mechanical Ventilator 30 07/14/18 18:55 108 28 30 07/14/18 18:00 105 25 130/70 98 Mechanical Ventilator 30 07/14/18 17:00 105 27 122/85 100 Mechanical Ventilator 30 07/14/18 16:53 112 29 30 07/14/18 16:52 110 40 30 07/14/18 16:00 112 07/14/18 16:00 98.9 113 25 125/69 98 Mechanical Ventilator 30 07/14/18 16:00 Mechanical Ventilator 07/14/18 16:00 30 07/14/18 15:03 107 25 100 Mechanical Ventilator 30 07/14/18 15:00 113 25 130/74 99 Mechanical Ventilator 30 07/14/18 14:53 102 26 98 Mechanical Ventilator 30 07/14/18 14:52 103 26 30 07/14/18 14:00 103 25 125/69 97 Mechanical Ventilator 30 07/14/18 13:00 100 24 116/70 100 Mechanical Ventilator 30 07/14/18 13:00 95 21 30 07/14/18 12:00 99 07/14/18 12:00 99.3 100 22 116/68 97 Mechanical Ventilator 30 07/14/18 12:00 Mechanical Ventilator 07/14/18 11:00 100 23 111/61 98 Mechanical Ventilator 30 07/14/18 10:50 07/14/18 10:50 101 21 97 Mechanical Ventilator 30 07/14/18 10:39 90 19 30 07/14/18 10:39 90 19 98 Mechanical Ventilator 30 07/14/18 10:00 96 21 103/62 98 Mechanical Ventilator 30 07/14/18 09:13 93 21 30 07/14/18 09:00 93 19 115/65 98 Mechanical Ventilator 30 07/14/18 09:00 30 07/14/18 08:34 94 112/69 Intake and Output 07/14/18 07/15/18 19:00 07:00 Intake Total 2058.0 ml 2186.0 ml Output Total 1375 ml 880 ml Balance 683.0 ml 1306.0 ml IV Total 1928.0 ml 2021.0 ml Tube Feeding 115 ml Other 130 ml 50 ml Output Urine Total 1140 ml 810 ml Gastric Drainage Total 200 ml 50 ml Drainage Total 35 ml 20 ml # Bowel Movements 2 Laboratory Tests 07/14/18 13:15: Arterial Blood pH 7.496H, Arterial Blood Partial Pressure CO2 29.6L, Arterial Blood Partial Pressure O2 80.9, Arterial Blood HCO3 22.4, Arterial Blood Oxygen Saturation 95.7, Arterial Blood Base Excess -0.5, Michael Test Positive 07/15/18 05:00: White Blood Count 16.4H, Red Blood Count 1.87L, Hemoglobin 6.8*L, Hematocrit 20.4L, Mean Corpuscular Volume 109H, Mean Corpuscular Hemoglobin 36.3H, Mean Corpuscular Hemoglobin Concent 33.3, Red Cell Distribution Width 12.9, Platelet Count 596H, Mean Platelet Volume 6.6, Neutrophils (%) (Auto) , Lymphocytes (%) ( Auto) , Monocytes (%) (Auto) , Eosinophils (%) (Auto) , Basophils (%) (Auto) , Neutrophils % (Manual) [Pending], Lymphocytes % (Manual) [Pending], Platelet Estimate [Pending], Platelet Morphology [Pending], Prothrombin Time 10.9, Prothromb Time International Ratio 1.0, Activated Partial Thromboplast Time 25, Sodium Level 145, Potassium Level 3.5, Chloride Level 113H, Carbon Dioxide Level 22, Anion Gap 10, Blood Urea Nitrogen 8, Creatinine 0.9, Estimat Glomerular Filtration Rate > 60, Glucose Level 104, Calcium Level 7.9L, Total Bilirubin 0.3, Aspartate Amino Transf (AST/SGOT) 58H, Alanine Aminotransferase ( ALT/SGPT) 60, Alkaline Phosphatase 83, Total Protein 6.4, Albumin 1.7L, Globulin 4.7, Albumin/Globulin Ratio 0.4L, Amylase Level 150H, Lipase 1016H Height (Feet): 5 Height (Inches): 9.00 Weight (Pounds): 160 General Appearance: lethargic EENT: normal ENT inspection Neck: supple Cardiovascular: tachycardia Respiratory/Chest: decreased breath sounds Abdomen: hypoactive bowel sounds, distended, tender Extremities: non-tender Toñito Yip MD Jul 15, 2018 08:14
--- NOTE | 2018-07-15 08:40 | NUR ---
NURSE NOTES: Dr. Yip at [facility], tube feeding was stopped, keep NPO per Dr. Yip.
--- NOTE | 2018-07-15 08:50 | NUR ---
NURSE NOTES: Consent for blood transfusion obtained from pt's , Bonnie Chow.
--- NOTE | 2018-07-15 08:52 | General Progress Note ---
Assessment/Plan Status: unchanged Assessment/Plan #Sepsis #Acute purulent gangrenous cholecystitis. #acute Hypoxic respiratory failure #Acute Metabolic Encephalopathy - due to alcohol withdrawal and sepsis - zosyn - bcx x 2 ngtd - s/p ercp 07/12 - gen surg consulted, s/p lap jocelyn converted to open jocelyn 07/12 - kept intubated and sedated, unable to extubate postop, could not maintain airway - cont vent management, simv, tv 500, peep 5, fio2 30%, wean vent as tolerated - pulm consulted - pain control - appreciate surg recs - fluids - tube feeds held per GI #Acute Blood Loss Anemia - due to recent surgery - no overt bleeding noted currently - hgb 6.8, transfuse 2U #Pleural Effusions - b/l - per mrcp - stable - intubated now - pulm consulted #Alcohol Pancreatitis #Intractable abdominal pain #intractable nausea/vomiting #Transaminitis #Alcohol Hepatitis #Alcohol withdrawals #Fatty Liver Disease #Hepatitis C - LFTs 446/532 - Lipase 687 - due to alcohol abuse - INR 1.0 - discriminant function, 4.5 , no need for steroids - US abd completed and reviewed, showing fatty liver disease. 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 #Alcohol Abuse - educated on cessation for 15 mins - patient states he understands and will try to quit - RN notified to monitor carefully with withdrawals - prn ativan - ciwa - started librium, increased frequency today #Uncontrolled HTN - clonidine 0.1 mg po prn - amlodipine 10mg qday - due to withdrawals #Tobacco abuse - smokes 1ppd - educated on smoking cessation for over 15 mins, states he understands the risks of smoking and will try to quit diet: NPO DVT Prophylaxis: SCD, HSQ Code Status: Full Hospital Classification Declaration: Based on this initial evaluation, and depending on the patient's clinical course, I anticipate that this patient will require hospitalization for 2-3days for alcohol abuse, pancreatitis and close respiratory/hemodynamic monitoring. I have reviewed all labs, imaging and medications Disposition: Once the patient is stable to leave the hospital, I anticipate the patient will likely be discharged to the following environment: home I spent over 50 minutes on this patient's case, and over 50% of that time was spent on counseling and/or care . Discussed with patient/family, nursing staff , SW/CM regarding clinical status, treatment course, and disposition planning. over 30 mins of critical care time have been spent on this patient including vent management Time of note may not reflect time of encounter. ------- Date of Discussion: 07/03/18 A [id number] discussion with the patient regarding the patient's advanced care planning took place during this hospitalization on the above date. The discussion included the explanation and discussion of advance directives and associated forms/documents, as well as the patient's current code status. We also discussed at length the patient's medical conditions (both acute and chronic), general prognosis, treatment options, and goals of care. The following summarizes the discussion: Advance Care Planning/Goals of Care: - Will attempt to fill out an AD and/or POLST with the patient prior to discharge, if not already completed - Continue current evaluation and management of any acute and chronic medical issues - Will continue to support the patient/family - Will continue to discuss both short- and long-term goals of care DPOA-HC/Surrogate Decision Maker: : Bonnie Crenshaw Code Status: Full Code AD Forms/Documents Completed: Deferred A total of 34 minutes was spent on this discussion, including counseling, answering questions, and completing, if any, pertinent advanced care planning forms/documents. Subjective Date patient seen: Jul 15, 2018 Time patient seen: 08:49 Allergies: Coded Allergies: No Known Allergies (Unverified , 06/01/16) Subjective f/u pancreatitis, cholecystitis, sepsis, alcoholic hepatitis, nausea, alcohol abuse, alcohol withdrawals s/p ercp 07/12 and subsequent open jocelyn, full of pus, gangrenous jocelyn, drain left in intubated, sedated hgb dropped, transfusing 2U now - tube feeds held per gi ROS: unable to obtain due patient being intubated/sedated Objective Last 24 Hour Vital Signs Date Time Temp Pulse Resp B/P (MAP) Pulse Ox O2 Delivery O2 Flow Rate FiO2 07/15/18 08:00 Mechanical Ventilator 07/15/18 08:00 30 07/15/18 08:00 98.9 87 15 99/60 100 Mechanical Ventilator 30 07/15/18 07:37 90 20 100 Mechanical Ventilator 30 07/15/18 07:27 88 21 100 Mechanical Ventilator 30 07/15/18 07:12 88 21 30 07/15/18 07:00 87 16 85/57 100 Mechanical Ventilator 30 07/15/18 06:00 92 14 88/50 100 Mechanical Ventilator 30 07/15/18 05:15 139 21 30 07/15/18 05:00 138 24 133/68 99 Mechanical Ventilator 30 07/15/18 04:00 30 07/15/18 04:00 98.5 90 16 122/64 100 Mechanical Ventilator 30 07/15/18 04:00 Mechanical Ventilator 07/15/18 03:44 90 07/15/18 03:41 89 16 100 Mechanical Ventilator 30 07/15/18 03:31 87 20 98 Mechanical Ventilator 30 07/15/18 03:30 87 20 30 07/15/18 03:00 86 15 119/64 99 Mechanical Ventilator 30 07/15/18 02:00 81 15 108/61 99 Mechanical Ventilator 30 07/15/18 01:33 81 25 30 07/15/18 01:00 80 14 110/65 100 Mechanical Ventilator 30 07/15/18 00:00 98.4 78 14 84/53 100 Mechanical Ventilator 30 07/15/18 00:00 Mechanical Ventilator 07/15/18 00:00 30 07/14/18 23:30 77 22 100 Mechanical Ventilator 30 07/14/18 23:20 75 17 100 Mechanical Ventilator 30 07/14/18 23:19 75 07/14/18 23:19 75 17 30 07/14/18 23:00 75 13 80/54 100 Mechanical Ventilator 30 07/14/18 22:00 76 13 82/53 98 Mechanical Ventilator 30 07/14/18 21:00 120 17 86/64 98 Mechanical Ventilator 30 07/14/18 21:00 129/79 07/14/18 20:57 126 21 30 07/14/18 20:30 137 129/79 07/14/18 20:00 98.8 144 16 87/59 98 Mechanical Ventilator 30 07/14/18 20:00 30 07/14/18 20:00 Mechanical Ventilator 07/14/18 19:33 111 07/14/18 19:00 106 25 116/75 100 Mechanical Ventilator 30 07/14/18 18:56 108 28 97 Mechanical Ventilator 30 07/14/18 18:55 106 26 100 Mechanical Ventilator 30 07/14/18 18:55 108 28 30 07/14/18 18:00 105 25 130/70 98 Mechanical Ventilator 30 07/14/18 17:00 105 27 122/85 100 Mechanical Ventilator 30 07/14/18 16:53 112 29 30 07/14/18 16:52 110 40 30 07/14/18 16:00 112 07/14/18 16:00 98.9 113 25 125/69 98 Mechanical Ventilator 30 07/14/18 16:00 Mechanical Ventilator 07/14/18 16:00 30 07/14/18 15:03 107 25 100 Mechanical Ventilator 30 07/14/18 15:00 113 25 130/74 99 Mechanical Ventilator 30 07/14/18 14:53 102 26 98 Mechanical Ventilator 30 07/14/18 14:52 103 26 30 07/14/18 14:00 103 25 125/69 97 Mechanical Ventilator 30 07/14/18 13:00 100 24 116/70 100 Mechanical Ventilator 30 07/14/18 13:00 95 21 30 07/14/18 12:00 99 07/14/18 12:00 99.3 100 22 116/68 97 Mechanical Ventilator 30 07/14/18 12:00 Mechanical Ventilator 07/14/18 11:00 100 23 111/61 98 Mechanical Ventilator 30 07/14/18 10:50 07/14/18 10:50 101 21 97 Mechanical Ventilator 30 07/14/18 10:39 90 19 30 07/14/18 10:39 90 19 98 Mechanical Ventilator 30 07/14/18 10:00 96 21 103/62 98 Mechanical Ventilator 30 07/14/18 09:13 93 21 30 07/14/18 09:00 93 19 115/65 98 Mechanical Ventilator 30 07/14/18 09:00 30 Intake and Output 07/14/18 07/15/18 19:00 07:00 Intake Total 2058.0 ml 2186.0 ml Output Total 1375 ml 880 ml Balance 683.0 ml 1306.0 ml IV Total 1928.0 ml 2021.0 ml Tube Feeding 115 ml Other 130 ml 50 ml Output Urine Total 1140 ml 810 ml Gastric Drainage Total 200 ml 50 ml Drainage Total 35 ml 20 ml # Bowel Movements 2 Laboratory Tests 07/14/18 13:15: Arterial Blood pH 7.496H, Arterial Blood Partial Pressure CO2 29.6L, Arterial Blood Partial Pressure O2 80.9, Arterial Blood HCO3 22.4, Arterial Blood Oxygen Saturation 95.7, Arterial Blood Base Excess -0.5, Michael Test Positive 07/15/18 05:00: White Blood Count 16.4H, Red Blood Count 1.87L, Hemoglobin 6.8*L, Hematocrit 20.4L, Mean Corpuscular Volume 109H, Mean Corpuscular Hemoglobin 36.3H, Mean Corpuscular Hemoglobin Concent 33.3, Red Cell Distribution Width 12.9, Platelet Count 596H, Mean Platelet Volume 6.6, Neutrophils (%) (Auto) , Lymphocytes (%) ( Auto) , Monocytes (%) (Auto) , Eosinophils (%) (Auto) , Basophils (%) (Auto) , Neutrophils % (Manual) [Pending], Lymphocytes % (Manual) [Pending], Platelet Estimate [Pending], Platelet Morphology [Pending], Prothrombin Time 10.9, Prothromb Time International Ratio 1.0, Activated Partial Thromboplast Time 25, Sodium Level 145, Potassium Level 3.5, Chloride Level 113H, Carbon Dioxide Level 22, Anion Gap 10, Blood Urea Nitrogen 8, Creatinine 0.9, Estimat Glomerular Filtration Rate > 60, Glucose Level 104, Calcium Level 7.9L, Total Bilirubin 0.3, Aspartate Amino Transf (AST/SGOT) 58H, Alanine Aminotransferase ( ALT/SGPT) 60, Alkaline Phosphatase 83, Total Protein 6.4, Albumin 1.7L, Globulin 4.7, Albumin/Globulin Ratio 0.4L, Amylase Level 150H, Lipase 1016H Height (Feet): 5 Height (Inches): 9.00 Weight (Pounds): 160 Objective General Appearance: intubated/sedated Lines, tubes and drains: peripheral HEENT: normocephalic, atraumatic, anicteric, PERRL, other - dry mucous membrane Neck: non-tender, normal alignment Respiratory/Chest: chest wall non-tender, mechanical breath sounds, no respiratory distress, no accessory muscle use Cardiovascular/Chest: normal peripheral pulses, normal rate, regular rhythm Abdomen: normal bowel sounds, soft, no organomegaly, no mass, drain in place, Extremities: normal range of motion, non-tender, normal inspection, no calf tenderness, normal capillary refill, non-pitting. +asterixis Skin Exam: normal pigmentation, warm/dry Neurologic: no motor/sensory deficits, alert, oriented x 3, responsive, normal mood/affect Eulogio Siddiqi MD Jul 15, 2018 08:52
[2018-07-15] MEDS: Docusate 100mg/10ml Liq NG SCH ×2 (09:00→17:47)
[2018-07-15] MEDS: Metoprolol 25mg tab NG SCH (09:39)
[2018-07-15] MEDS: Pantoprazole Inj IVP SCH ×2 (09:39→20:32)
[2018-07-15] MEDS: Heparin 5000 units/ml inj SUBQ SCH ×2 (09:41→20:35)
[2018-07-15] MEDS: chlordiazePOXIDE 25mg Cap ORAL SCH ×4 (09:41→21:22)
--- NOTE | 2018-07-15 10:00 | NUR ---
NURSE NOTES: patient was repositioned, VSS, kept clean and dry. NPO. no s/sx pain noted at this time.
--- NOTE | 2018-07-15 10:17 | Diagnostic Imaging Report ---
EXAM: XR Chest, 1 View CLINICAL HISTORY: F/U TECHNIQUE: Frontal view of the chest. COMPARISON: Chest x-ray 07/06/18 FINDINGS: Lungs: Right lower lobe opacity. Pleural space: Small right pleural effusion. No pneumothorax. Heart: Mild cardiomegaly. Mediastinum: Unremarkable. Bones/joints: Unremarkable. Tubes, lines and devices: Endotracheal tube 4.5 cm above the maxine, good position. NG tube traverses diaphragm, tip is not seen. Upper abdomen: Surgical clips midepigastric region of the abdomen. Elevated right hemidiaphragm. IMPRESSION: 1. Endotracheal tube good position. 2. Right lower lobe opacity and small right pleural effusion.
--- NOTE | 2018-07-15 11:10 | Cardiology Report ---
APPROVED REPORT EKG Measurement Heart [id number] MI 120P [id number] Probably atrial tachycardia Nonspecific ST and T wave abnormality Abnormal ECG
[2018-07-15] MEDS ORDERED: Albuterol/Ipratropium 3ml neb HHN PRN (11:45)
--- NOTE | 2018-07-15 11:50 | Pulmonolgy Critical Care Note ---
Critical Care - Asmt/Plan Problems: (1) Respiratory disorder with ventilator dependence (2) Gangrenous cholecystitis (3) S/P cholecystectomy (4) Abnormal LFTs (5) Cholecystitis, acute (6) Hepatitis C (7) Alcoholic pancreatitis (8) Pancreatitis, acute (9) Alcohol abuse (10) Fatty liver (11) Tobacco use (12) Blood loss anemia (13) Pneumonia Respiratory: monitor respiratory rate, adjust FIO2 - Titrate down FiO2 and PEEP to keep SaO2 > 92%, ABG, weaning trial - in am, other - RTC & PRN HHN's, continue Nicotine patch Cardiac: continue to monitor HR/BP, other - TTE Renal: keep IV fluid, check electrolytes Infectious Disease: check cultures, continue antibiotics - Zosyn Gastrointestinal: other - F/U surg and GI recs, NPO, TF's when able, wound care , monitor JUNE, trend amylase/lipase/LFTs Endocrine: monitor blood sugar Hematologic: monitor H/H, other - Transufse as needed Neurologic: keep patient comfortable, other - Banana bag daily Prophylaxis: Protonix, Heparin Disposition: keep in ICU Time Spent (Minutes): 60 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, GI, 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ERY, HEME-ONC Discussed with: nurses, consultants Critical Care - Objective Last 24 Hour Vital Signs Date Time Temp Pulse Resp B/P (MAP) Pulse Ox O2 Delivery O2 Flow Rate FiO2 07/15/18 11:14 91 22 100 Mechanical Ventilator 30 07/15/18 11:00 90 16 98/59 97 Mechanical Ventilator 30 07/15/18 10:53 91 22 30 07/15/18 10:00 87 16 106/64 98 Mechanical Ventilator 30 07/15/18 09:40 97 102/62 07/15/18 09:39 98 102/62 07/15/18 09:05 89 23 30 07/15/18 09:00 94 16 102/62 100 Mechanical Ventilator 30 07/15/18 08:00 Mechanical Ventilator 07/15/18 08:00 30 07/15/18 08:00 89 07/15/18 08:00 98.9 87 15 99/60 100 Mechanical Ventilator 30 07/15/18 07:37 90 20 100 Mechanical Ventilator 30 07/15/18 07:27 88 21 100 Mechanical Ventilator 30 07/15/18 07:12 88 21 30 07/15/18 07:00 87 16 85/57 100 Mechanical Ventilator 30 07/15/18 06:00 92 14 88/50 100 Mechanical Ventilator 30 07/15/18 05:15 139 21 30 07/15/18 05:00 138 24 133/68 99 Mechanical Ventilator 30 07/15/18 04:00 30 07/15/18 04:00 98.5 90 16 122/64 100 Mechanical Ventilator 30 07/15/18 04:00 Mechanical Ventilator 07/15/18 03:44 90 07/15/18 03:41 89 16 100 Mechanical Ventilator 30 07/15/18 03:31 87 20 98 Mechanical Ventilator 30 07/15/18 03:30 87 20 30 07/15/18 03:00 86 15 119/64 99 Mechanical Ventilator 30 07/15/18 02:00 81 15 108/61 99 Mechanical Ventilator 30 07/15/18 01:33 81 25 30 07/15/18 01:00 80 14 110/65 100 Mechanical Ventilator 30 07/15/18 00:00 98.4 78 14 84/53 100 Mechanical Ventilator 30 07/15/18 00:00 Mechanical Ventilator 07/15/18 00:00 30 07/14/18 23:30 77 22 100 Mechanical Ventilator 30 07/14/18 23:20 75 17 100 Mechanical Ventilator 30 07/14/18 23:19 75 07/14/18 23:19 75 17 30 07/14/18 23:00 75 13 80/54 100 Mechanical Ventilator 30 07/14/18 22:00 76 13 82/53 98 Mechanical Ventilator 30 07/14/18 21:00 120 17 86/64 98 Mechanical Ventilator 30 07/14/18 21:00 129/79 07/14/18 20:57 126 21 30 07/14/18 20:30 137 129/79 07/14/18 20:00 98.8 144 16 87/59 98 Mechanical Ventilator 30 07/14/18 20:00 30 07/14/18 20:00 Mechanical Ventilator 07/14/18 19:33 111 07/14/18 19:00 106 25 116/75 100 Mechanical Ventilator 30 07/14/18 18:56 108 28 97 Mechanical Ventilator 30 07/14/18 18:55 106 26 100 Mechanical Ventilator 30 07/14/18 18:55 108 28 30 07/14/18 18:00 105 25 130/70 98 Mechanical Ventilator 30 07/14/18 17:00 105 27 122/85 100 Mechanical Ventilator 30 07/14/18 16:53 112 29 30 07/14/18 16:52 110 40 30 07/14/18 16:00 112 07/14/18 16:00 98.9 113 25 125/69 98 Mechanical Ventilator 30 07/14/18 16:00 Mechanical Ventilator 07/14/18 16:00 30 07/14/18 15:03 107 25 100 Mechanical Ventilator 30 07/14/18 15:00 113 25 130/74 99 Mechanical Ventilator 30 07/14/18 14:53 102 26 98 Mechanical Ventilator 30 07/14/18 14:52 103 26 30 07/14/18 14:00 103 25 125/69 97 Mechanical Ventilator 30 07/14/18 13:00 100 24 116/70 100 Mechanical Ventilator 30 07/14/18 13:00 95 21 30 07/14/18 12:00 99 07/14/18 12:00 99.3 100 22 116/68 97 Mechanical Ventilator 30 07/14/18 12:00 Mechanical Ventilator Status: somnolent, other - intubated Condition: critical HEENT: atraumatic, normocephalic, other - NGT, ETT Lungs: rhonchi Heart: HR/BP stable Abdomen: other - Wound dressed JUNE mild TTP hypoactive BS Extremities: no C/C/E Micro: Microbiology Date/Time Source Procedure Growth Status 07/12/18 20:50 Peritoneal Fluid Gram Stain - Final Resulted 07/12/18 20:50 Peritoneal Fluid Aerobic Culture - Preliminary NO GROWTH Resulted 07/12/18 20:50 Peritoneal Fluid Anaerobic Culture Pending Resulted 07/12/18 20:00 Gallbladder Fluid Gram Stain - Final Resulted 07/12/18 20:00 Body Fluid Culture - Preliminary Gram Negative Bacillus 1 Resulted Accucheck: 91 Blood Sugars: BS controlled Critical Care - Subjective ROS Limited/Unobtainable: Yes ICU Day: 4 Intubation Day: 4 Interval Events: EtOh panc Gang jocelyn S/P open 07/12 Intubated on vent, no sig secretions Started on TF's, amylase and lipase inc, TF's held Getting PRBC today Off pressors Stable on vent - hugo CPAP x 4 hours yesterday Condition: critical IV Access: peripheral EKG Rhythm: Sinus Rhythm FI02: 30 Vent Support Breath Rate: 14 Vent Support Mode: AC Vent Tidal Volume: 500 Sputum Amount: Small PEEP: 5.0 PIP: 15 Secretions: Small white Fluids: [id number]@ 150 Drips: N/A Tube Feeding Amount: 20 I&O: Intake and Output 07/14/18 07/15/18 19:00 07:00 Intake Total 2058.0 ml 2186.0 ml Output Total 1375 ml 880 ml Balance 683.0 ml 1306.0 ml IV Total 1928.0 ml 2021.0 ml Tube Feeding 115 ml Other 130 ml 50 ml Output Urine Total 1140 ml 810 ml Gastric Drainage Total 200 ml 50 ml Drainage Total 35 ml 20 ml # Bowel Movements 2 Subjective: KEO CXR: PVC, RLL opacity ET-Tube: 8.0 ET Position: 24 Labs: Laboratory Tests Test 07/14/18 13:15 07/15/18 05:00 Arterial Blood pH 7.496 (7.350-7.450) Arterial Blood Partial Pressure CO2 29.6 mmHg (35.0-45.0) L Arterial Blood Partial Pressure O2 80.9 mmHg (75.0-100.0) Arterial Blood HCO3 22.4 mmol/L (22.0-26.0) Arterial Blood Oxygen Saturation 95.7 % (95-100) Arterial Blood Base Excess -0.5 (-2-2) Michael Test Positive White Blood Count 16.4 K/UL (4.8-10.8) H Red Blood Count 1.87 M/UL (4.70-6.10) L Hemoglobin 6.8 G/DL (14.2-18.0) *L Hematocrit 20.4 % (42.0-52.0) L Mean Corpuscular Volume 109 FL (80-99) H Mean Corpuscular Hemoglobin 36.3 PG (27.0-31.0) H Mean Corpuscular Hemoglobin Concent 33.3 G/DL (32.0-36.0) Red Cell Distribution Width 12.9 % (11.6-14.8) Platelet Count 596 K/UL (150-450) H Mean Platelet Volume 6.6 FL (6.5-10.1) Neutrophils (%) (Auto) % (45.0-75.0) Lymphocytes (%) (Auto) % (20.0-45.0) Monocytes (%) (Auto) % (1.0-10.0) Eosinophils (%) (Auto) % (0.0-3.0) Basophils (%) (Auto) % (0.0-2.0) Differential Total Cells Counted 100 Neutrophils % (Manual) 70 % (45-75) Lymphocytes % (Manual) 14 % (20-45) L Monocytes % (Manual) 8 % (1-10) Eosinophils % (Manual) 2 % (0-3) Basophils % (Manual) 0 % (0-2) Myelocytes % 1 % (0-0) H Band Neutrophils 5 % (0-8) Platelet Estimate Increased H Platelet Morphology Normal Polychromasia Occasional Macrocytosis 2+ Prothrombin Time 10.9 SEC (9.30-11.50) Prothromb Time International Ratio 1.0 (0.9-1.1) Activated Partial Thromboplast Time 25 SEC (23-33) Sodium Level 145 MMOL/L (136-145) Potassium Level 3.5 MMOL/L (3.5-5.1) Chloride Level 113 MMOL/L (98-107) H Carbon Dioxide Level 22 MMOL/L (21-32) Anion Gap 10 mmol/L (5-15) Blood Urea Nitrogen 8 mg/dL (7-18) Creatinine 0.9 MG/DL (0.55-1.30) Estimat Glomerular Filtration Rate > 60 mL/min (>60) Glucose Level 104 MG/DL (74-106) Calcium Level 7.9 MG/DL (8.5-10.1) L Total Bilirubin 0.3 MG/DL (0.2-1.0) Aspartate Amino Transf (AST/SGOT) 58 U/L (15-37) H Alanine Aminotransferase (ALT/SGPT) 60 U/L (12-78) Alkaline Phosphatase 83 U/L (46-116) Total Protein 6.4 G/DL (6.4-8.2) Albumin 1.7 G/DL (3.4-5.0) L Globulin 4.7 g/dL Albumin/Globulin Ratio 0.4 (1.0-2.7) L Amylase Level 150 U/L (25-115) H Lipase 1016 U/L (73-393) H Trenton Ladd MD Jul 15, 2018 11:50
--- NOTE | 2018-07-15 12:20 | NUR ---
NURSE NOTES: blood transfusion ongoing, VSS. no reaction noted at this time. will continue to monitor.
--- NOTE | 2018-07-15 12:25 | NUR ---
NURSE NOTES: Dr. Ladd in facility, updated on pt's status. aware of ABG results.
[2018-07-15] MEDS ORDERED: Folic Acid 1 MG, Magnesium Sulfate 2,000 MG, Multivitamin - 12 Injection 10 ML in Sodiu... IV SCH (14:00)
[2018-07-15] MEDS ORDERED: Thiamine HCl 100 MG in D5W 55 ML IVPB SCH (14:00)
--- NOTE | 2018-07-15 14:20 | NUR ---
NURSE NOTES: pt noted with temp 100.1, shortly after blood transfusion. tylenol given.
--- NOTE | 2018-07-15 15:35 | NUR ---
NURSE NOTES: abd dressing removed by Dr. Antonio. surgical site clean and dry. open to air per .
--- NOTE | 2018-07-15 16:38 | General Progress Note ---
Progress Note Progress Note s/p open jocelyn gangrenous purulent cholecystitis drain with dark red output wound okay still intubated on vent labs noted hb trending down abd soft, non distended. likely hematoma in abdomen but wound anticipate much more distention or rigid if that much blood. he is responsive and does not have tenderness except at incision site. possible component can be resuscitation. if does not respond to transfusion or continues to trend down will anticipate return to OR if necessary cont abx wean vent as tolerated drain care leave dressings [place] Antonio Jul 15, 2018 16:38
--- NOTE | 2018-07-15 17:00 | NUR ---
NURSE NOTES: patient noted with temp 100.0 orally, 2nd bag of PRBC not started. cooling measures provided. will continue to monitor.
[2018-07-15] MEDS ORDERED: NS 275ml ONE (17:21)
[2018-07-15] MEDS ORDERED: NS 500ML ONE (17:24)
[2018-07-15] MEDS ORDERED: Tubing IV Secondary IV ONE (17:24)
--- NOTE | 2018-07-15 19:11 | NUR ---
RESPIRATORY NOTE: PT. RECEIVED STABLE ON AC 14, 500, 30%, +5. ALARMS ON AND AUDIBLE. VENT CIRCUIT AND SX TUBING SECURE AND OUT OF THE WAY. NO S/S OF RESPIRATORY DISTRESS NOTED AT THIS TIME. WILL CONTINUE TO MONITOR.
--- NOTE | 2018-07-15 19:15 | NUR ---
HAND-OFF: Report given to JAVIER Arceo.
--- NOTE | 2018-07-15 20:00 | NUR ---
NURSE NOTES: Received patient from JAVIER Pruett. Patient resting in bed, briefly opens eyes to voice, unable to follow commands. Orally intubated, ETT 8.0, 24cm at lip line, AC14, TV 500, Fio2 30%, PEEP 5, saturating 100%. No acute distress noted. Right nare NGT intact and patent. Right abd JUNE drain with serosanguineous drainage noted. Abd surgical area is open to air . No s/sx bleeding noted. On SCDs. Serrano cath intact and patent, draining yellow urine by gravity. Pt on bilateral soft wrist restraints, skin intact and warm. Left AC 20G, Left wrist 22G intact, running D5NS w/ 20meq KCl at 150ml/hr. Call light within reach. Bed in lowest position. Call light within reach. Will continue to monitor.
--- NOTE | 2018-07-15 20:01 | NUR ---
NURSE NOTES: second unit of PRBC hung. Temperature is 98.7F. Vitals remains stable, patients IV lines remain patent.
[2018-07-15] MEDS: Thiamine HCl 100 MG in D5W 55 ML IVPB SCH (20:33)
[2018-07-15] MEDS: Folic Acid 1 MG, Magnesium Sulfate 2,000 MG, Multivitamin - 12 Injection 10 ML in Sodiu... IV SCH (21:30)
--- NOTE | 2018-07-15 22:00 | NUR ---
NURSE NOTES: PRBC finished transfusing, no adverse reaction observed. Banana bag hung. NO acute distress at this time, patient repositioned.
[2018-07-15] MEDS: LORazepam Inj 2mg/ml 1ml IV PRN (23:41)
[2018-07-16] VITALS (24 sets, daily range): BP systolic 91–150; BP diastolic 54–94
--- NOTE | 2018-07-16 | NUR ---
NURSE NOTES: Patient repositioned and provided oral care, Ativan 1mg provided. BP remains stable. IV lines remains patent and intact.
--- NOTE | 2018-07-16 02:00 | NUR ---
NURSE NOTES: Patient repositioned and suctioned. Maintenance fluids running, IV line remain patent. NAD.
[2018-07-16] MEDS: Albuterol/Ipratropium 3ml neb HHN SCH ×6 (03:04→23:15)
--- NOTE | 2018-07-16 04:00 | NUR ---
NURSE NOTES: Patient cleaned and repositioned, oral secretions suctioned. VS remains stable, NAD, no fever. Blood drawn and sent to lab. Patient awake, opens eyes but doesn't follow commands.
[2018-07-16] MEDS: Zosyn 4.5gm q8h **Extended infusion IVPB SCH ×6 (05:00→20:27)
--- NOTE | 2018-07-16 05:04 | NUR ---
RESPIRATORY NOTE: PT. REMAINED STABLE ON CMV WITH CURRENT SETTINGS. SX PRN WITHOUT ADVERSE REACTION. VENT. CIRCUIT AND SX TUBING SECURE AND OUT OF THE WAY. NO S/S OF RESPIRATORY DISTRESS NOTED AT THIS TIME.
[2018-07-16 05:38] LABS: HEMATOCRIT 28.2 % (42.0-52.0); HEMOGLOBIN 9.7 G/DL (14.2-18.0); MEAN CORPUSCULAR VOLUME 101 FL (80-99); PLATELET COUNT 613 K/UL (150-450); RED BLOOD COUNT 2.79 M/UL (4.70-6.10); WHITE BLOOD COUNT 14.8 K/UL (4.8-10.8)
[2018-07-16 05:56] LABS: INR 1.1 (0.9-1.1)
[2018-07-16 05:58] LABS: ALANINE AMINOTRANSFERASE 58 U/L (12-78); ALBUMIN 1.9 G/DL (3.4-5.0); ALBUMIN/GLOBULIN RATIO 0.4 (1.0-2.7); ALKALINE PHOSPHATASE 81 U/L (46-116); AMYLASE 189 U/L (25-115); ANION GAP 9 mmol/L (5-15); ASPARTATE AMINO TRANSFERASE 61 U/L (15-37); BILIRUBIN,TOTAL 0.6 MG/DL (0.2-1.0); BLOOD UREA NITROGEN 4 mg/dL (7-18); CALCIUM 8.3 MG/DL (8.5-10.1); CARBON DIOXIDE 22 MMOL/L (21-32); CHLORIDE 109 MMOL/L (98-107); CREATININE 0.7 MG/DL (0.55-1.30); POTASSIUM 3.4 MMOL/L (3.5-5.1); SODIUM 140 MMOL/L (136-145)
--- NOTE | 2018-07-16 06:00 | NUR ---
NURSE NOTES: Patient repositioned, and suctioned oral secretions, no acute activities observed overnight, patient remains awake, now is able to knod to commands. No seizure activity observed, no fever and is not diaphoretic.
--- NOTE | 2018-07-16 06:01 | NUR ---
NURSE NOTES: 60ml serosanguineous output from Jordan Hassan drain.
--- NOTE | 2018-07-16 06:06 | NUR ---
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 99.0 HR 93 RR 28 B/P 150/74 AC 14 TV 500 FIO2 30% PEEP 5 WBC 14.8 K 3.4 AMYLASE 189 LIPASE 1355 IS: IVF D5KCL@ 150ML/HR ZOSYN IV THIAMINE IV BANANA BAG IV ICU STATUS
--- NOTE | 2018-07-16 07:00 | NUR ---
HAND-OFF: Report given to Nikkie HERRERA.
--- NOTE | 2018-07-16 07:00 | NUR ---
Received Patient on Vent ACVC VT 500, RR 14, FIO2 30%, PEEP +5. Patient is intubated with 8.0 tube at 24 cm lip line, secured with anchor fast. Breath sounds reveal bilateral rhonchi. Suction thin clear secretions. Vent plugged into red outlet. Alarms are on and audible. Will continue to monitor throughout the day.
--- NOTE | 2018-07-16 07:55 | NUR ---
Weaning started. Patient placed on PS +8, PEEP +5, Fio2 30%. Tolerating well. Will continue to monitor.
--- NOTE | 2018-07-16 08:00 | NUR ---
NURSE NOTES: Report received from JAVIER Arceo.Asleep with no s/s acute distress.Responsive to tactile stimuli. ETT in place size 8/24 lip line and AC 14 Vt 500 FiO2 30% Peep 5. Placed on CPAP 8 and tolerate well . Afebrile at this time with OGT placement intact , NPO at this time.Left wrist/22 and Left AC/20 running D5NS with 20Kcl at 150cc with no apparent infiltration.Potassium 3.4 will follow up with primary.Abdomen noted to be distended will follow up with GI physician. Bilateral soft wrist restraints with no skin impairment.Right JUNE drain on right lower quadrant draining serosanguineous drainage and right upper quadrant abdomen and lower umbilical surgical incision site open to air with small amount of serous exudate.Area clean and dry. Will continue to monitor.
[2018-07-16] MEDS: chlordiazePOXIDE 25mg Cap ORAL SCH ×4 (09:12→20:27)
[2018-07-16] MEDS: Docusate 100mg/10ml Liq NG SCH ×2 (09:12→18:36)
[2018-07-16] MEDS: Heparin 5000 units/ml inj SUBQ SCH ×2 (09:14→20:28)
[2018-07-16] MEDS: Metoprolol 25mg tab NG SCH (09:15)
[2018-07-16] MEDS: Pantoprazole Inj IVP SCH ×2 (09:15→20:27)
--- NOTE | 2018-07-16 09:15 | NUR ---
NURSE NOTES: Unable to scan after multiple attempts, roover not working
--- NOTE | 2018-07-16 09:29 | General Progress Note ---
Assessment/Plan Assessment/Plan #Sepsis #Acute purulent gangrenous cholecystitis. #acute Hypoxic respiratory failure #Acute Metabolic Encephalopathy - due to alcohol withdrawal and sepsis - zosyn - bcx x 2 ngtd - s/p ercp 07/12 - gen surg consulted, s/p lap jocelyn converted to open jocelyn 07/12 - kept intubated and sedated, unable to extubate postop, could not maintain airway - cont vent management, simv, tv 500, peep 5, fio2 30%, wean vent as tolerated, cpap trials - pulm consulted - pain control - appreciate surg recs - fluids - tube feeds held per GI #Acute Blood Loss Anemia - due to recent surgery - no overt bleeding noted currently - hgb 6.8 07/15, transfuse 2U yesterday, 9.7 (07/16) #Pleural Effusions - b/l - per mrcp - stable - intubated now - pulm consulted #Alcohol Pancreatitis #Intractable abdominal pain #intractable nausea/vomiting #Transaminitis #Alcohol Hepatitis #Alcohol withdrawals #Fatty Liver Disease #Hepatitis C - LFTs 446/532 - Lipase 687 - due to alcohol abuse - INR 1.0 - discriminant function, 4.5 , no need for steroids - US abd completed and reviewed, showing fatty liver disease. GS present, no obstruction noted - ppi - PRN antiemetics, zofran prn - Banana bag - close lab monitoring - IVF - monitor carefully for withdrawals - tube feeds held due to worsening pancreatitis #Failure to thrive - due to alcohol withdrawals and the above - alcoholic pancreatitis - fluids #Alcohol Abuse - educated on cessation for 15 mins - patient states he understands and will try to quit - RN notified to monitor carefully with withdrawals - prn ativan - ciwa #Uncontrolled HTN - clonidine 0.1 mg po prn - amlodipine 10mg qday - due to withdrawals #Tobacco abuse - smokes 1ppd - educated on smoking cessation for over 15 mins, states he understands the risks of smoking and will try to quit diet: NPO DVT Prophylaxis: SCD, HSQ Code Status: Full Hospital Classification Declaration: Based on this initial evaluation, and depending on the patient's clinical course, I anticipate that this patient will require hospitalization for 2-3days for alcohol abuse, pancreatitis and close respiratory/hemodynamic monitoring. I have reviewed all labs, imaging and medications Disposition: Once the patient is stable to leave the hospital, I anticipate the patient will likely be discharged to the following environment: home I spent over 50 minutes on this patient's case, and over 50% of that time was spent on counseling and/or care . Discussed with patient/family, nursing staff , SW/CM regarding clinical status, treatment course, and disposition planning. over 30 mins of critical care time have been spent on this patient including vent management Time of note may not reflect time of encounter. ------- Date of Discussion: 07/03/18 A [id number] discussion with the patient regarding the patient's advanced care planning took place during this hospitalization on the above date. The discussion included the explanation and discussion of advance directives and associated forms/documents, as well as the patient's current code status. We also discussed at length the patient's medical conditions (both acute and chronic), general prognosis, treatment options, and goals of care. The following summarizes the discussion: Advance Care Planning/Goals of Care: - Will attempt to fill out an AD and/or POLST with the patient prior to discharge, if not already completed - Continue current evaluation and management of any acute and chronic medical issues - Will continue to support the patient/family - Will continue to discuss both short- and long-term goals of care DPOA-HC/Surrogate Decision Maker: : Bonnie Crenshaw Code Status: Full Code AD Forms/Documents Completed: Deferred A total of 34 minutes was spent on this discussion, including counseling, answering questions, and completing, if any, pertinent advanced care planning forms/documents. Subjective Date patient seen: Jul 16, 2018 Time patient seen: 09:25 Allergies: Coded Allergies: No Known Allergies (Unverified , 06/01/16) Subjective f/u pancreatitis, cholecystitis, sepsis, alcoholic hepatitis, nausea, alcohol abuse, alcohol withdrawals s/p ercp 07/12 and subsequent open jocelyn, full of pus, gangrenous jocelyn, drain left in intubated, sedated hgb dropped, transfusing 2U now TF held ROS: unable to obtain due patient being intubated/sedated Objective Last 24 Hour Vital Signs Date Time Temp Pulse Resp B/P (MAP) Pulse Ox O2 Delivery O2 Flow Rate FiO2 07/16/18 09:15 88 127/68 07/16/18 09:15 90 127/68 07/16/18 09:01 100 07/16/18 09:00 88 22 120/68 100 Mechanical Ventilator 30 07/16/18 09:00 90 21 30 07/16/18 08:00 98.4 88 23 127/68 100 Mechanical Ventilator 30 07/16/18 07:56 93 23 30 07/16/18 07:00 99 29 129/70 100 Mechanical Ventilator 30 91 07/16/18 06:50 97 20 100 Mechanical Ventilator 30 07/16/18 06:46 90 24 30 07/16/18 06:42 98 22 100 Mechanical Ventilator 30 07/16/18 06:00 91 22 131/74 100 Mechanical Ventilator 30 91 07/16/18 05:04 96 28 30 07/16/18 05:00 96 26 136/78 100 Mechanical Ventilator 30 96 07/16/18 04:00 99.0 93 23 150/76 100 Mechanical Ventilator 30 93 07/16/18 04:00 Mechanical Ventilator 07/16/18 04:00 30 07/16/18 04:00 89 07/16/18 03:12 94 19 100 Mechanical Ventilator 30 07/16/18 03:04 95 23 100 Mechanical Ventilator 30 07/16/18 03:04 95 23 30 07/16/18 03:00 86 23 137/78 100 Mechanical Ventilator 30 86 07/16/18 02:00 86 23 122/71 100 Mechanical Ventilator 30 86 07/16/18 01:09 93 24 30 07/16/18 01:00 90 22 126/73 100 Mechanical Ventilator 30 96 07/16/18 00:00 99.3 95 18 144/78 100 Mechanical Ventilator 30 96 07/16/18 00:00 30 07/16/18 00:00 Mechanical Ventilator 07/16/18 00:00 96 07/15/18 23:03 96 26 100 Mechanical Ventilator 30 07/15/18 23:00 96 18 139/82 100 Mechanical Ventilator 30 96 07/15/18 22:53 97 26 99 Mechanical Ventilator 30 07/15/18 22:53 97 26 30 07/15/18 22:00 94 21 139/80 100 Mechanical Ventilator 30 94 07/15/18 21:36 93 23 30 07/15/18 21:00 94 21 141/84 100 Mechanical Ventilator 30 94 07/15/18 20:00 30 07/15/18 20:00 98.7 99 23 138/76 100 Mechanical Ventilator 30 99 07/15/18 20:00 94 07/15/18 20:00 Mechanical Ventilator 07/15/18 19:27 97 28 100 Mechanical Ventilator 30 07/15/18 19:17 103 27 100 Mechanical Ventilator 30 07/15/18 19:11 103 27 30 07/15/18 19:00 99 22 151/80 99 Mechanical Ventilator 30 07/15/18 18:00 98.9 96 22 146/86 99 Mechanical Ventilator 30 07/15/18 17:00 95 22 120/68 99 Mechanical Ventilator 30 07/15/18 16:54 92 22 30 07/15/18 16:00 99.4 99 22 118/72 99 Mechanical Ventilator 30 07/15/18 16:00 102 07/15/18 16:00 30 07/15/18 16:00 Mechanical Ventilator 07/15/18 15:30 99.6 07/15/18 15:18 96 24 98 Mechanical Ventilator 30 07/15/18 15:08 101 26 96 Mechanical Ventilator 30 07/15/18 15:00 100.1 99 22 118/72 99 Mechanical Ventilator 30 07/15/18 14:56 100 26 30 07/15/18 14:00 99 16 122/71 99 Mechanical Ventilator 30 07/15/18 13:00 101 16 115/75 97 Mechanical Ventilator 30 07/15/18 12:55 101 25 30 07/15/18 12:00 98.3 100 16 112/68 97 Mechanical Ventilator 30 07/15/18 12:00 Mechanical Ventilator 07/15/18 12:00 30 07/15/18 12:00 100 07/15/18 11:24 91 22 100 Mechanical Ventilator 30 07/15/18 11:14 91 22 100 Mechanical Ventilator 30 07/15/18 11:00 90 16 98/59 97 Mechanical Ventilator 30 07/15/18 10:53 91 22 30 07/15/18 10:00 87 16 106/64 98 Mechanical Ventilator 30 07/15/18 09:40 97 102/62 07/15/18 09:39 98 102/62 Intake and Output 07/15/18 07/16/18 19:00 07:00 Intake Total 2257.5 ml 3296.0 ml Output Total 1540 ml 2245 ml Balance 717.5 ml 1051.0 ml Free Water 30 ml 150 ml IV Total 1957.5 ml 3146.0 ml Tube Feeding 20 ml Blood Product 250 ml Output Urine Total 1485 ml 2185 ml Drainage Total 55 ml 60 ml # Bowel Movements 3 Laboratory Tests 07/15/18 11:55: Arterial Blood pH 7.465H, Arterial Blood Partial Pressure CO2 29.4L, Arterial Blood Partial Pressure O2 74.1L, Arterial Blood HCO3 20.7L, Arterial Blood Oxygen Saturation 94.7L, Arterial Blood Base Excess -2.6L, Michael Test Positive 07/16/18 04:50: White Blood Count 14.8H, Red Blood Count 2.79L, Hemoglobin 9.7#L, Hematocrit 28.2#L, Mean Corpuscular Volume 101H, Mean Corpuscular Hemoglobin 34.6H, Mean Corpuscular Hemoglobin Concent 34.2, Red Cell Distribution Width 15.0H, Platelet Count 613H, Mean Platelet Volume 6.3L, Neutrophils (%) (Auto) , Lymphocytes (%) (Auto) , Monocytes (%) (Auto) , Eosinophils (%) (Auto) , Basophils (%) (Auto) , Differential Total Cells Counted 100, Neutrophils % ( Manual) 85H, Lymphocytes % (Manual) 7L, Monocytes % (Manual) 6, Eosinophils % ( Manual) 1, Basophils % (Manual) 1, Band Neutrophils 0, Platelet Estimate IncreasedH, Platelet Morphology Normal, Hypochromasia 2+, Anisocytosis 1+, Prothrombin Time 11.2, Prothromb Time International Ratio 1.1, Activated Partial Thromboplast Time 27, Sodium Level 140, Potassium Level 3.4L, Chloride Level 109H, Carbon Dioxide Level 22, Anion Gap 9, Blood Urea Nitrogen 4L, Creatinine 0.7, Estimat Glomerular Filtration Rate > 60, Glucose Level 125H, Calcium Level 8.3L, Total Bilirubin 0.6, Aspartate Amino Transf (AST/SGOT) 61H, Alanine Aminotransferase (ALT/SGPT) 58, Alkaline Phosphatase 81, Total Protein 6.9, Albumin 1.9L, Globulin 5.0, Albumin/Globulin Ratio 0.4L, Amylase Level 189H , Lipase 1355H 07/16/18 08:55: Arterial Blood pH 7.462H, Arterial Blood Partial Pressure CO2 30.3L, Arterial Blood Partial Pressure O2 91.8, Arterial Blood HCO3 21.2L, Arterial Blood Oxygen Saturation 96.6, Arterial Blood Base Excess -1.9, Michael Test Positive Height (Feet): 5 Height (Inches): 9.00 Weight (Pounds): 160 Objective General Appearance: intubated/sedated Lines, tubes and drains: peripheral HEENT: normocephalic, atraumatic, anicteric, PERRL, other - dry mucous membrane Neck: non-tender, normal alignment Respiratory/Chest: chest wall non-tender, mechanical breath sounds, no respiratory distress, no accessory muscle use Cardiovascular/Chest: normal peripheral pulses, normal rate, regular rhythm Abdomen: normal bowel sounds, soft, no organomegaly, no mass, drain in place, Extremities: normal range of motion, non-tender, normal inspection, no calf tenderness, normal capillary refill, non-pitting. +asterixis Skin Exam: normal pigmentation, warm/dry Neurologic: no motor/sensory deficits, alert, oriented x 3, responsive, normal mood/affect Eulogio Siddiqi MD Jul 16, 2018 09:29
--- NOTE | 2018-07-16 10:35 | NUR ---
Extubated patient. Placed on Venti mask 10LPM 45% FIO2 tolerating well.
--- NOTE | 2018-07-16 10:40 | NUR ---
NURSE NOTES: Pt remains on CPAP 8 and tolerate well saturation at 100%. ABG done and relayed to Dr Ladd with order to extubate pt.Breathing exercises teaching provided. Pt extubated at 1035 and tolerate well.Placed on Venti mask at 45% , tolerate well with saturation at 99% at this time.Made aware of Potassium 3.4 with one time order 40meq IVPB. Order noted and carried out.Pt also noted with open blister lower left quadrant and close blister right lower quadrant.Protocol treatment initiated.Treatment nurse made aware. Will continue to monitor.
--- NOTE | 2018-07-16 11:35 | Pulmonolgy Critical Care Note ---
Critical Care - Asmt/Plan Problems: (1) Respiratory disorder with ventilator dependence (2) Gangrenous cholecystitis (3) S/P cholecystectomy (4) Abnormal LFTs (5) Cholecystitis, acute (6) Hepatitis C (7) Alcoholic pancreatitis (8) Pancreatitis, acute (9) Alcohol abuse (10) Fatty liver (11) Tobacco use (12) Blood loss anemia (13) Pneumonia Respiratory: monitor respiratory rate, adjust FIO2 - Titrate down to keep SaO2 > 92%, other - Pulm hygiene/mobilize, HHN's Cardiac: continue to monitor HR/BP, other - F/U TTE result Renal: keep IV fluid, check electrolytes Infectious Disease: check cultures, continue antibiotics Gastrointestinal: other - F/U GI and surg recs, wound care, trend LFT's and lipase, start enternal feeds when ok with surgery Endocrine: monitor blood sugar Hematologic: other - PRn transfusion Neurologic: keep patient comfortable Prophylaxis: Protonix, Heparin Disposition: keep in ICU Time Spent (Minutes): 40 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, GI, other - surgery and heme-onc Discussed with: nurses, consultants Critical Care - Objective Last 24 Hour Vital Signs Date Time Temp Pulse Resp B/P (MAP) Pulse Ox O2 Delivery O2 Flow Rate FiO2 07/16/18 11:00 134 24 144/94 99 Mechanical Ventilator 30 07/16/18 10:38 Venturi Mask 10.0 45 07/16/18 10:37 134 28 99 Venturi Mask 10.0 45 07/16/18 10:37 Venturi Mask 10.0 45 07/16/18 10:00 133 24 144/94 98 Mechanical Ventilator 30 07/16/18 09:15 88 127/68 07/16/18 09:15 90 127/68 07/16/18 09:01 100 07/16/18 09:00 88 22 120/68 100 Mechanical Ventilator 30 07/16/18 09:00 90 21 30 07/16/18 09:00 30 07/16/18 08:00 92 07/16/18 08:00 98.4 88 23 127/68 100 Mechanical Ventilator 30 07/16/18 08:00 Mechanical Ventilator 07/16/18 08:00 30 07/16/18 07:56 93 23 30 07/16/18 07:00 99 29 129/70 100 Mechanical Ventilator 30 91 07/16/18 06:50 97 20 100 Mechanical Ventilator 30 07/16/18 06:46 90 24 30 07/16/18 06:42 98 22 100 Mechanical Ventilator 30 07/16/18 06:00 91 22 131/74 100 Mechanical Ventilator 30 91 07/16/18 05:04 96 28 30 07/16/18 05:00 96 26 136/78 100 Mechanical Ventilator 30 96 07/16/18 04:00 99.0 93 23 150/76 100 Mechanical Ventilator 30 93 07/16/18 04:00 Mechanical Ventilator 07/16/18 04:00 30 07/16/18 04:00 89 07/16/18 03:12 94 19 100 Mechanical Ventilator 30 07/16/18 03:04 95 23 100 Mechanical Ventilator 30 07/16/18 03:04 95 23 30 07/16/18 03:00 86 23 137/78 100 Mechanical Ventilator 30 86 07/16/18 02:00 86 23 122/71 100 Mechanical Ventilator 30 86 07/16/18 01:09 93 24 30 07/16/18 01:00 90 22 126/73 100 Mechanical Ventilator 30 96 07/16/18 00:00 99.3 95 18 144/78 100 Mechanical Ventilator 30 96 07/16/18 00:00 30 07/16/18 00:00 Mechanical Ventilator 07/16/18 00:00 96 07/15/18 23:03 96 26 100 Mechanical Ventilator 30 07/15/18 23:00 96 18 139/82 100 Mechanical Ventilator 30 96 07/15/18 22:53 97 26 99 Mechanical Ventilator 30 07/15/18 22:53 97 26 30 07/15/18 22:00 94 21 139/80 100 Mechanical Ventilator 30 94 07/15/18 21:36 93 23 30 07/15/18 21:00 94 21 141/84 100 Mechanical Ventilator 30 94 07/15/18 20:00 30 07/15/18 20:00 98.7 99 23 138/76 100 Mechanical Ventilator 30 99 07/15/18 20:00 94 07/15/18 20:00 Mechanical Ventilator 07/15/18 19:27 97 28 100 Mechanical Ventilator 30 07/15/18 19:17 103 27 100 Mechanical Ventilator 30 07/15/18 19:11 103 27 30 07/15/18 19:00 99 22 151/80 99 Mechanical Ventilator 30 07/15/18 18:00 98.9 96 22 146/86 99 Mechanical Ventilator 30 07/15/18 17:00 95 22 120/68 99 Mechanical Ventilator 30 07/15/18 16:54 92 22 30 07/15/18 16:00 99.4 99 22 118/72 99 Mechanical Ventilator 30 07/15/18 16:00 102 07/15/18 16:00 30 07/15/18 16:00 Mechanical Ventilator 07/15/18 15:30 99.6 07/15/18 15:18 96 24 98 Mechanical Ventilator 30 07/15/18 15:08 101 26 96 Mechanical Ventilator 30 07/15/18 15:00 100.1 99 22 118/72 99 Mechanical Ventilator 30 07/15/18 14:56 100 26 30 07/15/18 14:00 99 16 122/71 99 Mechanical Ventilator 30 07/15/18 13:00 101 16 115/75 97 Mechanical Ventilator 30 07/15/18 12:55 101 25 30 07/15/18 12:00 98.3 100 16 112/68 97 Mechanical Ventilator 30 07/15/18 12:00 Mechanical Ventilator 07/15/18 12:00 30 07/15/18 12:00 100 Status: awake, other - non verbal Condition: improving HEENT: atraumatic, normocephalic Lungs: rhonchi Heart: HR/BP stable Abdomen: soft, non-tender, active bowel sounds, other - dressed, JUNE Extremities: no C/C/E Accucheck: 91 Blood Sugars: BS controlled Critical Care - Subjective ROS Limited/Unobtainable: Yes ICU Day: 5 Intubation Day: Ex this am Interval Events: Passed SBT, extubated Lipase inc, WCt better, HH stable No distress Condition: improving IV Access: peripheral EKG Rhythm: Sinus Tachycardia FI02: 30 Vent Support Breath Rate: 14 Vent Support Mode: CPAP Vent Tidal Volume: 500 Sputum Amount: Small PEEP: 5.0 PIP: 15 Secretions: Thin clear Fluids: [id number] Drips: N/A Tube Feeding Amount: 20 I&O: Intake and Output 07/15/18 07/16/18 19:00 07:00 Intake Total 2257.5 ml 3296.0 ml Output Total 1540 ml 2245 ml Balance 717.5 ml 1051.0 ml Free Water 30 ml 150 ml IV Total 1957.5 ml 3146.0 ml Tube Feeding 20 ml Blood Product 250 ml Output Urine Total 1485 ml 2185 ml Drainage Total 55 ml 60 ml # Bowel Movements 3 Subjective: KEO ET-Tube: 8.0 ET Position: 24 Labs: Laboratory Tests Test 07/15/18 11:55 07/16/18 04:50 07/16/18 08:55 Arterial Blood pH 7.465 (7.350-7.450) 7.462 (7.350-7.450) Arterial Blood Partial Pressure CO2 29.4 mmHg (35.0-45.0) L 30.3 mmHg (35.0-45.0) L Arterial Blood Partial Pressure O2 74.1 mmHg (75.0-100.0) L 91.8 mmHg (75.0-100.0) Arterial Blood HCO3 20.7 mmol/L (22.0-26.0) L 21.2 mmol/L (22.0-26.0) L Arterial Blood Oxygen Saturation 94.7 % (95-100) L 96.6 % (95-100) Arterial Blood Base Excess -2.6 (-2-2) L -1.9 (-2-2) Michael Test Positive Positive White Blood Count 14.8 K/UL (4.8-10.8) H Red Blood Count 2.79 M/UL (4.70-6.10) L Hemoglobin 9.7 G/DL (14.2-18.0) #L Hematocrit 28.2 % (42.0-52.0) #L Mean Corpuscular Volume 101 FL (80-99) H Mean Corpuscular Hemoglobin 34.6 PG (27.0-31.0) H Mean Corpuscular Hemoglobin Concent 34.2 G/DL (32.0-36.0) Red Cell Distribution Width 15.0 % (11.6-14.8) H Platelet Count 613 K/UL (150-450) H Mean Platelet Volume 6.3 FL (6.5-10.1) L Neutrophils (%) (Auto) % (45.0-75.0) Lymphocytes (%) (Auto) % (20.0-45.0) Monocytes (%) (Auto) % (1.0-10.0) Eosinophils (%) (Auto) % (0.0-3.0) Basophils (%) (Auto) % (0.0-2.0) Differential Total Cells Counted 100 Neutrophils % (Manual) 85 % (45-75) H Lymphocytes % (Manual) 7 % (20-45) L Monocytes % (Manual) 6 % (1-10) Eosinophils % (Manual) 1 % (0-3) Basophils % (Manual) 1 % (0-2) Band Neutrophils 0 % (0-8) Platelet Estimate Increased H Platelet Morphology Normal Hypochromasia 2+ Anisocytosis 1+ Prothrombin Time 11.2 SEC (9.30-11.50) Prothromb Time International Ratio 1.1 (0.9-1.1) Activated Partial Thromboplast Time 27 SEC (23-33) Sodium Level 140 MMOL/L (136-145) Potassium Level 3.4 MMOL/L (3.5-5.1) L Chloride Level 109 MMOL/L (98-107) H Carbon Dioxide Level 22 MMOL/L (21-32) Anion Gap 9 mmol/L (5-15) Blood Urea Nitrogen 4 mg/dL (7-18) L Creatinine 0.7 MG/DL (0.55-1.30) Estimat Glomerular Filtration Rate > 60 mL/min (>60) Glucose Level 125 MG/DL (74-106) H Calcium Level 8.3 MG/DL (8.5-10.1) L Total Bilirubin 0.6 MG/DL (0.2-1.0) Aspartate Amino Transf (AST/SGOT) 61 U/L (15-37) H Alanine Aminotransferase (ALT/SGPT) 58 U/L (12-78) Alkaline Phosphatase 81 U/L (46-116) Total Protein 6.9 G/DL (6.4-8.2) Albumin 1.9 G/DL (3.4-5.0) L Globulin 5.0 g/dL Albumin/Globulin Ratio 0.4 (1.0-2.7) L Amylase Level 189 U/L (25-115) H Lipase 1355 U/L (73-393) H Trenton Ladd MD Jul 16, 2018 11:35
--- NOTE | 2018-07-16 11:44 | NUR ---
NURSE NOTES: Seen by Dr Ladd, will follow up with new orders
--- NOTE | 2018-07-16 11:53 | GI Progress Note ---
Assessment/Plan Problems: (1) Abnormal LFTs ICD Codes: R79.89 - Other specified abnormal findings of blood chemistry SNOMED: 550805285 (2) Cholecystitis, acute ICD Codes: K81.0 - Acute cholecystitis SNOMED: 66215507 (3) Hepatitis C ICD Codes: B19.20 - Unspecified viral hepatitis C without hepatic coma SNOMED: 27635403 (4) Fatty liver ICD Codes: K76.0 - Fatty (change of) liver, not elsewhere classified SNOMED: 065966090 (5) Alcoholic pancreatitis ICD Codes: K85.20 - Alcohol induced acute pancreatitis without necrosis or infection SNOMED: 009752332 (6) Pancreatitis, acute ICD Codes: K85.90 - Acute pancreatitis without necrosis or infection, unspecified SNOMED: 297696970 Status: unchanged Status Narrative Discussed with Dr. Yip. Assessment/Plan SUMMARY OF FINDINGS: 1. 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 2. Status post ERCP with sphincterotomy, balloon assistance sludge and some pus extraction from the common bile duct and then stent placement. s/p open jocelyn, now in ICU RECOMMENDATIONS: follow up surgical recommendations hold NGTF, patient has pancreatitis now ivf keep npo ppi prn transfusions>> 2units for today abx The patient will need repeat ERCP in 6 to 8 weeks for stent removal. The patient was seen and examined at bedside and all new and available data was reviewed in the patients chart. I agree with the above findings, impression and plan. (Patient seen earlier today. Signature stamp does not reflect patient encounter time.). - Toñito Yip MD Subjective Subjective limited Objective Last 24 Hour Vital Signs Date Time Temp Pulse Resp B/P (MAP) Pulse Ox O2 Delivery O2 Flow Rate FiO2 07/16/18 11:00 134 24 144/94 99 Mechanical Ventilator 30 07/16/18 10:38 Venturi Mask 10.0 45 07/16/18 10:37 134 28 99 Venturi Mask 10.0 45 07/16/18 10:37 Venturi Mask 10.0 45 07/16/18 10:00 133 24 144/94 98 Mechanical Ventilator 30 07/16/18 09:15 88 127/68 07/16/18 09:15 90 127/68 07/16/18 09:01 100 07/16/18 09:00 88 22 120/68 100 Mechanical Ventilator 30 07/16/18 09:00 90 21 30 07/16/18 09:00 30 07/16/18 08:00 92 07/16/18 08:00 98.4 88 23 127/68 100 Mechanical Ventilator 30 07/16/18 08:00 Mechanical Ventilator 07/16/18 08:00 30 07/16/18 07:56 93 23 30 07/16/18 07:00 99 29 129/70 100 Mechanical Ventilator 30 91 07/16/18 06:50 97 20 100 Mechanical Ventilator 30 07/16/18 06:46 90 24 30 07/16/18 06:42 98 22 100 Mechanical Ventilator 30 07/16/18 06:00 91 22 131/74 100 Mechanical Ventilator 30 91 07/16/18 05:04 96 28 30 07/16/18 05:00 96 26 136/78 100 Mechanical Ventilator 30 96 07/16/18 04:00 99.0 93 23 150/76 100 Mechanical Ventilator 30 93 07/16/18 04:00 Mechanical Ventilator 07/16/18 04:00 30 07/16/18 04:00 89 07/16/18 03:12 94 19 100 Mechanical Ventilator 30 07/16/18 03:04 95 23 100 Mechanical Ventilator 30 07/16/18 03:04 95 23 30 07/16/18 03:00 86 23 137/78 100 Mechanical Ventilator 30 86 07/16/18 02:00 86 23 122/71 100 Mechanical Ventilator 30 86 07/16/18 01:09 93 24 30 07/16/18 01:00 90 22 126/73 100 Mechanical Ventilator 30 96 07/16/18 00:00 99.3 95 18 144/78 100 Mechanical Ventilator 30 96 07/16/18 00:00 30 07/16/18 00:00 Mechanical Ventilator 07/16/18 00:00 96 07/15/18 23:03 96 26 100 Mechanical Ventilator 30 07/15/18 23:00 96 18 139/82 100 Mechanical Ventilator 30 96 07/15/18 22:53 97 26 99 Mechanical Ventilator 30 07/15/18 22:53 97 26 30 07/15/18 22:00 94 21 139/80 100 Mechanical Ventilator 30 94 07/15/18 21:36 93 23 30 07/15/18 21:00 94 21 141/84 100 Mechanical Ventilator 30 94 07/15/18 20:00 30 07/15/18 20:00 98.7 99 23 138/76 100 Mechanical Ventilator 30 99 07/15/18 20:00 94 07/15/18 20:00 Mechanical Ventilator 07/15/18 19:27 97 28 100 Mechanical Ventilator 30 07/15/18 19:17 103 27 100 Mechanical Ventilator 30 07/15/18 19:11 103 27 30 07/15/18 19:00 99 22 151/80 99 Mechanical Ventilator 30 07/15/18 18:00 98.9 96 22 146/86 99 Mechanical Ventilator 30 07/15/18 17:00 95 22 120/68 99 Mechanical Ventilator 30 07/15/18 16:54 92 22 30 07/15/18 16:00 99.4 99 22 118/72 99 Mechanical Ventilator 30 07/15/18 16:00 102 07/15/18 16:00 30 07/15/18 16:00 Mechanical Ventilator 07/15/18 15:30 99.6 07/15/18 15:18 96 24 98 Mechanical Ventilator 30 07/15/18 15:08 101 26 96 Mechanical Ventilator 30 07/15/18 15:00 100.1 99 22 118/72 99 Mechanical Ventilator 30 07/15/18 14:56 100 26 30 07/15/18 14:00 99 16 122/71 99 Mechanical Ventilator 30 07/15/18 13:00 101 16 115/75 97 Mechanical Ventilator 30 07/15/18 12:55 101 25 30 07/15/18 12:00 98.3 100 16 112/68 97 Mechanical Ventilator 30 07/15/18 12:00 Mechanical Ventilator 07/15/18 12:00 30 07/15/18 12:00 100 Intake and Output 07/15/18 07/16/18 19:00 07:00 Intake Total 2257.5 ml 3296.0 ml Output Total 1540 ml 2245 ml Balance 717.5 ml 1051.0 ml Free Water 30 ml 150 ml IV Total 1957.5 ml 3146.0 ml Tube Feeding 20 ml Blood Product 250 ml Output Urine Total 1485 ml 2185 ml Drainage Total 55 ml 60 ml # Bowel Movements 3 Laboratory Tests Test 07/15/18 11:55 07/16/18 04:50 07/16/18 08:55 Arterial Blood pH 7.465 (7.350-7.450) 7.462 (7.350-7.450) Arterial Blood Partial Pressure CO2 29.4 mmHg (35.0-45.0) L 30.3 mmHg (35.0-45.0) L Arterial Blood Partial Pressure O2 74.1 mmHg (75.0-100.0) L 91.8 mmHg (75.0-100.0) Arterial Blood HCO3 20.7 mmol/L (22.0-26.0) L 21.2 mmol/L (22.0-26.0) L Arterial Blood Oxygen Saturation 94.7 % (95-100) L 96.6 % (95-100) Arterial Blood Base Excess -2.6 (-2-2) L -1.9 (-2-2) Michael Test Positive Positive White Blood Count 14.8 K/UL (4.8-10.8) H Red Blood Count 2.79 M/UL (4.70-6.10) L Hemoglobin 9.7 G/DL (14.2-18.0) #L Hematocrit 28.2 % (42.0-52.0) #L Mean Corpuscular Volume 101 FL (80-99) H Mean Corpuscular Hemoglobin 34.6 PG (27.0-31.0) H Mean Corpuscular Hemoglobin Concent 34.2 G/DL (32.0-36.0) Red Cell Distribution Width 15.0 % (11.6-14.8) H Platelet Count 613 K/UL (150-450) H Mean Platelet Volume 6.3 FL (6.5-10.1) L Neutrophils (%) (Auto) % (45.0-75.0) Lymphocytes (%) (Auto) % (20.0-45.0) Monocytes (%) (Auto) % (1.0-10.0) Eosinophils (%) (Auto) % (0.0-3.0) Basophils (%) (Auto) % (0.0-2.0) Differential Total Cells Counted 100 Neutrophils % (Manual) 85 % (45-75) H Lymphocytes % (Manual) 7 % (20-45) L Monocytes % (Manual) 6 % (1-10) Eosinophils % (Manual) 1 % (0-3) Basophils % (Manual) 1 % (0-2) Band Neutrophils 0 % (0-8) Platelet Estimate Increased H Platelet Morphology Normal Hypochromasia 2+ Anisocytosis 1+ Prothrombin Time 11.2 SEC (9.30-11.50) Prothromb Time International Ratio 1.1 (0.9-1.1) Activated Partial Thromboplast Time 27 SEC (23-33) Sodium Level 140 MMOL/L (136-145) Potassium Level 3.4 MMOL/L (3.5-5.1) L Chloride Level 109 MMOL/L (98-107) H Carbon Dioxide Level 22 MMOL/L (21-32) Anion Gap 9 mmol/L (5-15) Blood Urea Nitrogen 4 mg/dL (7-18) L Creatinine 0.7 MG/DL (0.55-1.30) Estimat Glomerular Filtration Rate > 60 mL/min (>60) Glucose Level 125 MG/DL (74-106) H Calcium Level 8.3 MG/DL (8.5-10.1) L Total Bilirubin 0.6 MG/DL (0.2-1.0) Aspartate Amino Transf (AST/SGOT) 61 U/L (15-37) H Alanine Aminotransferase (ALT/SGPT) 58 U/L (12-78) Alkaline Phosphatase 81 U/L (46-116) Total Protein 6.9 G/DL (6.4-8.2) Albumin 1.9 G/DL (3.4-5.0) L Globulin 5.0 g/dL Albumin/Globulin Ratio 0.4 (1.0-2.7) L Amylase Level 189 U/L (25-115) H Lipase 1355 U/L (73-393) H Height (Feet): 5 Height (Inches): 9.00 Weight (Pounds): 160 General Appearance: no apparent distress Respiratory/Chest: other - [facility] vent Sonja Neely NP Jul 16, 2018 11:53
--- NOTE | 2018-07-16 12:21 | NUR ---
NURSE NOTES: Seen by Dr Reyes, packing and dressing TID . Seen also by Keshawn-CIRCUITRY NEGATIVE INSPECTOR continue on NPO, kept on close monitoring.Turned and repositioned.Mouth care done.
--- NOTE | 2018-07-16 12:30 | General Progress Note ---
Progress Note Progress Note s/p open jocelyn gangrenous purulent cholecystitis drain with dark red output wound okay still intubated on vent labs noted hb trending down - responded to transfusion. abd soft, non distended. likely hematoma in abdomen but wound anticipate much more distention or rigid if that much blood. he is responsive and does not have tenderness except at incision site. possible component can be resuscitation. wound kenneth removed from middle portion to let seroma drain. packing and dressing TID cont abx wean vent as tolerated drain care leave dressings [place] Antonio Jul 16, 2018 12:30
--- NOTE | 2018-07-16 14:10 | NUR ---
NURSE NOTES: Patient asleep,tolerate well breathing exercise education continue to be encouraged.No apparent s/s acute distress.Will continue to monitor
--- NOTE | 2018-07-16 14:22 | General Progress Note ---
Assessment/Plan Assessment/Plan Anemia of chronic disease (or of iron deficiency) due to underlying chronic medical issues, multifactorial --> Anemia workup has been ordered --> No evidence of hemolysis is noted, peripheral smear has been reviewed. --> Hgb goal >7. Transfuse prn. --> Epogen or iron at this time is not particularly indicated --> Medications have been reviewed # Thrombocytopenia is likely related to underlying reactive processs from pancreatitis, acute, as well as alcoholic intoxication and myelosuppression --> also patient has a history of hepatitis C from prior admission --> smear has been reviewed --> heparin sq is okay if needed for dvt ppx # Erythrocytosis is likely related to dehydration --> hgb goal >7, no evidence of bleeding currently --> given ivf already # Leukocytosis no e/o annie infection --> could be due to reactive process v cholecystitis --> wbc trend: 22-->18-->16-->14 --> peripheral smear has been reviewed --> ercp tomorrow per surg/gi # Pancreatitis with alcohol abuse --> recommend etoh cessation --> amylase and lipase prn # Transaminitis --> likely related to etoh abuse --> in past seen by gi # Alcohol abuse -- recommend cessation The timing of this note does not necessarily reflect the time of the patient was seen Greatly appreciate consultation! Subjective Constitutional: Denies: no symptoms, chills, diaphoresis, fever, malaise, weakness, other HEENT: Denies: no symptoms, eye pain, blurred vision, tearing, double vision, ear pain, ear discharge, nose pain, nose congestion, throat pain, throat swelling, mouth pain, mouth swelling, other Cardiovascular: Denies: no symptoms, chest pain, edema, irregular heart rate, lightheadedness, palpitations, syncope, other Respiratory: Denies: no symptoms, cough, orthopnea, shortness of breath, SOB with excertion, SOB at rest, sputum, stridor, wheezing, other Gastrointestinal/Abdominal: Denies: no symptoms, abdomen distended, abdominal pain, black stools, tarry stools, blood in stool, constipated, diarrhea, difficulty swallowing, nausea, poor appetite, poor fluid intake, rectal bleeding , vomiting, other Genitourinary: Denies: no symptoms, burning, discharge, frequency, flank pain, hematuria, incontinence, pain, urgency, other Neurologic/Psychiatric: Denies: no symptoms, anxiety, depressed, emotional problems, headache, numbness, paresthesia, pre-existing deficit, seizure, tingling, tremors, weakness, other Endocrine: Denies: no symptoms, excessive sweating, flushing, intolerance to cold, intolerance to heat, increased hunger, increased thirst, increased urine, unexplained weight gain, unexplained weight loss, other Allergies: Coded Allergies: No Known Allergies (Unverified , 06/01/16) Subjective 07/05: bp was high today and dc was cancelled until tomorow, on librium 07/06: wbc was high though other counts are better, no f/c 07/10: seen by bedside, heart rate increased, appears agitated, wbc 13.9 07/11: to get ercp tomorrow, surgery and gi following 07/12 ercp, sphincterotomy, stent placement surgery done today, currently having tremors and tachy. wbc 15.9, hgb 14, plt 429 07/13: Pt is intubated, seen by bedside,wbc 22, on abx, no acute distress 07/14: awake and comfortable, still intubated on vent, labs noted hb trending down, wbc 18, hgb 8. 07/16: seen by bedside, awake, comfortable, wbc 14, hgb 9, plt 613 Objective Last 24 Hour Vital Signs Date Time Temp Pulse Resp B/P (MAP) Pulse Ox O2 Delivery O2 Flow Rate FiO2 07/16/18 13:20 99.8 07/16/18 13:00 133 13 144/94 96 Mechanical Ventilator 30 07/16/18 12:00 98.2 141 24 126/86 100 Mechanical Ventilator 30 07/16/18 12:00 Venturi Mask 8.0 Venturi Mask 07/16/18 11:00 134 24 144/94 99 Mechanical Ventilator 30 07/16/18 10:38 Venturi Mask 10.0 45 07/16/18 10:37 134 28 99 Venturi Mask 10.0 45 07/16/18 10:37 Venturi Mask 10.0 45 07/16/18 10:00 133 24 144/94 98 Mechanical Ventilator 30 07/16/18 09:15 88 127/68 07/16/18 09:15 90 127/68 07/16/18 09:01 100 1/28/19 09:00 88 22 120/68 100 Mechanical Ventilator 30 07/16/18 09:00 90 21 30 07/16/18 09:00 30 07/16/18 08:00 92 07/16/18 08:00 98.4 88 23 127/68 100 Mechanical Ventilator 30 07/16/18 08:00 Mechanical Ventilator 07/16/18 08:00 30 07/16/18 07:56 93 23 30 07/16/18 07:00 99 29 129/70 100 Mechanical Ventilator 30 91 07/16/18 06:50 97 20 100 Mechanical Ventilator 30 07/16/18 06:46 90 24 30 07/16/18 06:42 98 22 100 Mechanical Ventilator 30 07/16/18 06:00 91 22 131/74 100 Mechanical Ventilator 30 91 07/16/18 05:04 96 28 30 07/16/18 05:00 96 26 136/78 100 Mechanical Ventilator 30 96 07/16/18 04:00 99.0 93 23 150/76 100 Mechanical Ventilator 30 93 07/16/18 04:00 Mechanical Ventilator 07/16/18 04:00 30 07/16/18 04:00 89 07/16/18 03:12 94 19 100 Mechanical Ventilator 30 07/16/18 03:04 95 23 100 Mechanical Ventilator 30 07/16/18 03:04 95 23 30 07/16/18 03:00 86 23 137/78 100 Mechanical Ventilator 30 86 07/16/18 02:00 86 23 122/71 100 Mechanical Ventilator 30 86 07/16/18 01:09 93 24 30 07/16/18 01:00 90 22 126/73 100 Mechanical Ventilator 30 96 07/16/18 00:00 99.3 95 18 144/78 100 Mechanical Ventilator 30 96 07/16/18 00:00 30 07/16/18 00:00 Mechanical Ventilator 07/16/18 00:00 96 07/15/18 23:03 96 26 100 Mechanical Ventilator 30 07/15/18 23:00 96 18 139/82 100 Mechanical Ventilator 30 96 07/15/18 22:53 97 26 99 Mechanical Ventilator 30 07/15/18 22:53 97 26 30 07/15/18 22:00 94 21 139/80 100 Mechanical Ventilator 30 94 07/15/18 21:36 93 23 30 07/15/18 21:00 94 21 141/84 100 Mechanical Ventilator 30 94 07/15/18 20:00 30 07/15/18 20:00 98.7 99 23 138/76 100 Mechanical Ventilator 30 99 07/15/18 20:00 94 07/15/18 20:00 Mechanical Ventilator 07/15/18 19:27 97 28 100 Mechanical Ventilator 30 07/15/18 19:17 103 27 100 Mechanical Ventilator 30 07/15/18 19:11 103 27 30 07/15/18 19:00 99 22 151/80 99 Mechanical Ventilator 30 07/15/18 18:00 98.9 96 22 146/86 99 Mechanical Ventilator 30 07/15/18 17:00 95 22 120/68 99 Mechanical Ventilator 30 07/15/18 16:54 92 22 30 07/15/18 16:00 99.4 99 22 118/72 99 Mechanical Ventilator 30 07/15/18 16:00 102 07/15/18 16:00 30 07/15/18 16:00 Mechanical Ventilator 07/15/18 15:30 99.6 07/15/18 15:18 96 24 98 Mechanical Ventilator 30 07/15/18 15:08 101 26 96 Mechanical Ventilator 30 07/15/18 15:00 100.1 99 22 118/72 99 Mechanical Ventilator 30 07/15/18 14:56 100 26 30 Intake and Output 07/15/18 07/16/18 19:00 07:00 Intake Total 2257.5 ml 3296.0 ml Output Total 1540 ml 2245 ml Balance 717.5 ml 1051.0 ml Free Water 30 ml 150 ml IV Total 1957.5 ml 3146.0 ml Tube Feeding 20 ml Blood Product 250 ml Output Urine Total 1485 ml 2185 ml Drainage Total 55 ml 60 ml # Bowel Movements 3 Laboratory Tests 07/16/18 04:50: White Blood Count 14.8H, Red Blood Count 2.79L, Hemoglobin 9.7#L, Hematocrit 28.2#L, Mean Corpuscular Volume 101H, Mean Corpuscular Hemoglobin 34.6H, Mean Corpuscular Hemoglobin Concent 34.2, Red Cell Distribution Width 15.0H, Platelet Count 613H, Mean Platelet Volume 6.3L, Neutrophils (%) (Auto) , Lymphocytes (%) (Auto) , Monocytes (%) (Auto) , Eosinophils (%) (Auto) , Basophils (%) (Auto) , Differential Total Cells Counted 100, Neutrophils % ( Manual) 85H, Lymphocytes % (Manual) 7L, Monocytes % (Manual) 6, Eosinophils % ( Manual) 1, Basophils % (Manual) 1, Band Neutrophils 0, Platelet Estimate IncreasedH, Platelet Morphology Normal, Hypochromasia 2+, Anisocytosis 1+, Prothrombin Time 11.2, Prothromb Time International Ratio 1.1, Activated Partial Thromboplast Time 27, Sodium Level 140, Potassium Level 3.4L, Chloride Level 109H, Carbon Dioxide Level 22, Anion Gap 9, Blood Urea Nitrogen 4L, Creatinine 0.7, Estimat Glomerular Filtration Rate > 60, Glucose Level 125H, Calcium Level 8.3L, Total Bilirubin 0.6, Aspartate Amino Transf (AST/SGOT) 61H, Alanine Aminotransferase (ALT/SGPT) 58, Alkaline Phosphatase 81, Total Protein 6.9, Albumin 1.9L, Globulin 5.0, Albumin/Globulin Ratio 0.4L, Amylase Level 189H , Lipase 1355H 07/16/18 08:55: Arterial Blood pH 7.462H, Arterial Blood Partial Pressure CO2 30.3L, Arterial Blood Partial Pressure O2 91.8, Arterial Blood HCO3 21.2L, Arterial Blood Oxygen Saturation 96.6, Arterial Blood Base Excess -1.9, Michael Test Positive Height (Feet): 5 Height (Inches): 9.00 Weight (Pounds): 160 Objective Physical Exam General Appearance: A+O x3, NAD HEENT: normocephalic, atraumatic Neck: non-tender, normal alignment Respiratory/Chest: chest wall non-tender, lungs clear Cardiovascular/Chest: normal peripheral pulses, normal rate Abdomen: normal bowel sounds, non tender Extremities: normal range of motion Guy Salazar MD Jul 16, 2018 14:22
--- NOTE | 2018-07-16 15:20 | NUR ---
RD ASSESSMENT & RECOMMENDATIONS SEE CARE ACTIVITY FOR COMPLETE ASSESSMENT DAILY ESTIMATED NEEDS: Needs based on Pancreatitis, 72.6kg 25-30 kcals/kg 2366-5286 total kcals 1-1.5 g protein/kg 73-109 g total protein 25-30 mL/kg 5300-3742 total fluid mLs NUTRITION DIAGNOSIS: * Altered nutrition-related lab values R/T liver dysfunction, pancreatitis, clinical condition as evidenced by elev LFTs, trend down, elev T bili, now wnl, , Hep C antibody >11, elev lipase and amylase, low Na (130-> wnl), low K 3.3. * Swallowing difficulty R/T dysphagia, decreased alertness, respiratory status as evidenced by previously recommended NPO per EMERGENCY COMMUNICATIONS OFFICER, intubated, now extubated, remains NPO ICU status. (UPDATED) CURRENT DIET: NPO PO DIET RECOMMENDATIONS: Diet per surgeon s/p extubation ADDITIONAL RECOMMENDATIONS: 1) Monitor NPO status- mostly NPO/CLD status x 11 days (1 day of soft diet) 2) REC TPN TO MEET EST NEEDS FOR PROLONGED NPO STATUS -> if unable to tolerate feeds via GI 3) Calibrated bedscale wt for accurate CBW 4) Monitor BGs, need for hypoglycemic agents- A1C 5.8 5) When on CLD, add Ensure CLEAR TID (250 kcal each) .
--- NOTE | 2018-07-16 15:25 | NUR ---
Social Work This Sw followed up with spouse, ([phone]) and suggested applying for [facility] if needing alf care @ SNF. Spouse stating she does not want to apply, stating patient has to be the one to approve for this. This SW informed Lachelle, who was given the referral by BUTCH Marks. Spouse explained she plans to take patient home and will provide 24 hour care. Pending progress at this time.
[2018-07-16] MEDS ORDERED: Lidocaine 1% Plain 30 ml INJ PRN (15:30)
[2018-07-16] MEDS ORDERED: Heparin 2000 units/Ns 1000ml INJ PRN (15:30)
--- NOTE | 2018-07-16 15:42 | NUR ---
NURSE NOTES: Received call from Keshawn HRIS SPECIALIST for Stat Picc line placement to possibly start TPN tomorrow.Order noted and carried out. Telephone consent obtained from Claudine Nicole.
--- NOTE | 2018-07-16 19:15 | NUR ---
NURSE NOTES: Report received from JAVIER Lundy. Pt opens eyes spontaneously, responsive to pain, non-verbal. poultry hatchery manager shows SR. Pt currently on venturi mask @ 45% FiO2, 8L. Pt has a melchor cathter in place, patent and draining well. A RLQ gonzales baldwin drain is present and draining appropriately. RUQ open incision present and packed with gauze. Multiple blisters present and covered with optifoam, and a lower abdominal wound is stapled and clean. Pt has a LW22g and LAC20g with [id number] running @ 150 ml/hr. Bed in lowest position, call light within reach, bed alarms placed. Will continue to monitor and with patients plan of care.
[2018-07-16] MEDS: Dyna-Hex 2% Top Sol 2oz TOPIC SCH (20:00)
--- NOTE | 2018-07-16 21:30 | NUR ---
NURSE NOTES: Pt currently resting comfortably. No signs of acute distress. VSS. Pt repositioned. Will continue to monitor
--- NOTE | 2018-07-16 21:30 | NUR ---
NURSE NOTES: Fever noted of 102.6. Ice packs provided. Fan on. Acetaminophen administered rectally. will recheck temperature and continue to monitor.
[2018-07-16] MEDS: Acetaminophen 650 MG SUPP RECTAL PRN (21:34)
[2018-07-16] MEDS: Folic Acid 1 MG, Magnesium Sulfate 2,000 MG, Multivitamin - 12 Injection 10 ML in Sodiu... IV SCH (21:57)
[2018-07-16] MEDS: Thiamine HCl 100 MG in D5W 55 ML IVPB SCH (21:57)
[2018-07-17] VITALS (24 sets, daily range): BP systolic 96–148; BP diastolic 57–82
--- NOTE | 2018-07-17 | NUR ---
NURSE NOTES: Pt awake, repositioned and cleaned. 1 BM noted, loose stool. VSS. Will continue to monitor.
--- NOTE | 2018-07-17 02:10 | NUR ---
NURSE NOTES: Pt repositioned, Resting comfortably. VSS. Temperature controlled. Will continue to monitor.
[2018-07-17] MEDS: Albuterol/Ipratropium 3ml neb HHN SCH ×3 (03:30→19:13)
--- NOTE | 2018-07-17 04:00 | NUR ---
NURSE NOTES: Pt resting comfortably. Cleaned once more, dressings changed and pt repositioned. VSS. Will continue to monitor.
[2018-07-17] MEDS: Zosyn 4.5gm q8h **Extended infusion IVPB SCH ×6 (05:32→20:53)
[2018-07-17 05:53] LABS: HEMATOCRIT 30.7 % (42.0-52.0); HEMOGLOBIN 10.4 G/DL (14.2-18.0); MEAN CORPUSCULAR VOLUME 103 FL (80-99); PLATELET COUNT 689 K/UL (150-450); RED BLOOD COUNT 2.99 M/UL (4.70-6.10); RED CELL DISTRIBUTION WIDTH 14.9 % (11.6-14.8); WHITE BLOOD COUNT 21.5 K/UL (4.8-10.8)
[2018-07-17 05:58] LABS: INR 1.1 (0.9-1.1)
[2018-07-17 06:09] LABS: ALANINE AMINOTRANSFERASE 53 U/L (12-78); ALBUMIN 1.8 G/DL (3.4-5.0); ALBUMIN/GLOBULIN RATIO 0.3 (1.0-2.7); ALKALINE PHOSPHATASE 79 U/L (46-116); ANION GAP 7 mmol/L (5-15); ASPARTATE AMINO TRANSFERASE 55 U/L (15-37); BLOOD UREA NITROGEN 5 mg/dL (7-18); CALCIUM 8.5 MG/DL (8.5-10.1); CARBON DIOXIDE 24 MMOL/L (21-32); CHLORIDE 108 MMOL/L (98-107); CREATININE 0.8 MG/DL (0.55-1.30); SODIUM 139 MMOL/L (136-145)
--- NOTE | 2018-07-17 07:30 | NUR ---
NURSE NOTES: Report received from Emily HERRERA. Pt alert and oriented x 1-2, able to make needs known. Pt connected to lunchroom monitor, ST 110s. Pt on 45% venturi mask. OGT noted and clamped. Serrano draining clear yellow urine to gravity. LLQ JUNE draining sanguineous fluid. RUQ abdominal surgical dressing clean, dry and intact. LW 22 G and LAC 20G with D5NS +20K at 150 cc/hr. Safety measures in place with bed locked and in lowest position, side rails x3 up and bed alarm on. Will continue to monitor and continue plan of care.
[2018-07-17 07:54] LABS: BILIRUBIN,TOTAL 0.6 MG/DL (0.2-1.0)
[2018-07-17] MEDS: Pantoprazole Inj IVP SCH ×2 (08:04→20:50)
[2018-07-17] MEDS: chlordiazePOXIDE 25mg Cap ORAL SCH ×4 (08:05→20:50)
[2018-07-17] MEDS: Heparin 5000 units/ml inj SUBQ SCH ×2 (08:08→20:51)
[2018-07-17] MEDS: Metoprolol 25mg tab NG SCH (08:08)
[2018-07-17] MEDS: Docusate 100mg/10ml Liq NG SCH ×2 (08:09→18:00)
[2018-07-17] MEDS ORDERED: Lidocaine 1% Plain 30 ml INJ PRN (08:45)
[2018-07-17] MEDS ORDERED: Heparin 2000 units/Ns 1000ml INJ PRN (08:45)
--- NOTE | 2018-07-17 09:00 | NUR ---
NURSE NOTES: PICC team here to insert PICC. No acute distress. Will continue to monitor.
--- NOTE | 2018-07-17 09:54 | NUR ---
RD ASSESSMENT & RECOMMENDATIONS SEE CARE ACTIVITY FOR COMPLETE ASSESSMENT DAILY ESTIMATED NEEDS: Needs based on Pancreatitis, 72.6kg 25-30 kcals/kg 8512-4155 total kcals 1-1.5 g protein/kg 73-109 g total protein 25-30 mL/kg 6547-4023 total fluid mLs NUTRITION DIAGNOSIS: * Altered nutrition-related lab values R/T liver dysfunction, pancreatitis, clinical condition as evidenced by elev LFTs, trend down, elev T bili, now wnl, , Hep C antibody >11, elev lipase and amylase, low Na (130-> wnl), low K 3.3. * Swallowing difficulty R/T dysphagia, decreased alertness, respiratory status as evidenced by previously recommended NPO per INTERPRETER, intubated, now extubated, remains NPO ICU status-> TPN pending. (UPDATED) CURRENT DIET: NPO PARENTERAL NUTRITION RECOMMENDATIONS: D/AA Rate: 70 IL Rate: 8 Total Rate: 78 Volume: 1872 % Dextrose: 20 % AA: 5.5 Energy (kcals/kg): 1896 Protein (g/kg protein): 92 Nonprotein KCALS: 1526 GIR (mg CHO/kg/min): 3.2 % Fat KCALS: 20 NCP: N Ratio: 104:1 TPN Comment: - Rec D20%, AA 5.5% @70ml/hr + 20% IL @8ml-> all 3:1 - Start @18ml for 6 hrs, advance by 1ml q4-6 hrs to goal - TPN @goal provides 1872 kcal (26 kcal/kg), 92g prot (1.3g/kg) - Monitor BG, lytes, LFT's daily on TPN - IL 20% - GIR <5 - NPC >100:1 ADDITIONAL RECOMMENDATIONS: 1) Monitor NPO status- mostly NPO/CLD status x 11 days (1 day of soft diet) 2) REC TPN TO MEET EST NEEDS FOR PROLONGED NPO STATUS -> TPN recs as above 3) Calibrated bedscale wt for accurate CBW 4) Monitor BGs, need for hypoglycemic agents- A1C 5.8 .
--- NOTE | 2018-07-17 10:21 | Diagnostic Imaging Report ---
Indications: Needs long-term IV access for total parenteral nutrition Technique: Procedure performed at bedside. Procedural timeout performed. Ultrasound confirms patent compressible left basilic vein. Total sterile technique, including sterile probe cover and sterile gel, sterile gloves, hand hygiene, hat, mask,, sterile gown, large sterile drape, and preparation with 2% chlorhexidine utilized. Local anesthesia with 1% lidocaine. Under real-time ultrasound guidance, puncture basilic vein using 21-gauge needle, passage 0.018 guidewire, exchange for 5 Cameroonian peel-away sheath. 5 Cam[place]onian Bard dual-lumen power PICC cut to 44 cm. It was inserted through the peel-away sheath. Peel-away sheath and guidewire removed. Catheter fixed to the skin. Both catheter ports aspirated and flushed. Patient tolerated procedure well, without immediate complication. Followup chest x-ray obtained, documents catheter tip position at the high right atrium Impression: Successful bedside placement of left arm PICC under sonographic guidance, as described above.
--- NOTE | 2018-07-17 10:55 | NUR ---
NURSE NOTES: Changed abdominal gauze dressing. Surgical wound pink with scant drainage. Will continue to monitor.
--- NOTE | 2018-07-17 11:21 | NUR ---
NURSE NOTES: Dr Boateng here covering for Dr Siddiqi/Dr Kinsey. No new orders. No acute distress. Will continue to monitor.
--- NOTE | 2018-07-17 11:58 | General Progress Note ---
Progress Note Progress Note s/p open jocelyn gangrenous purulent cholecystitis drain with dark red output wound okay on face mask labs noted hb stable leukocytosis abd soft, non distended. likely hematoma in abdomen but wound anticipate much more distention or rigid if that much blood. he is responsive and does not have tenderness except at incision site. possible component can be resuscitation. wound kenneth removed from middle portion to let seroma drain. packing and dressing TID cont abx drain care [place] Antonio Jul 17, 2018 11:58
--- NOTE | 2018-07-17 13:57 | GI Progress Note ---
Assessment/Plan Problems: (1) Abnormal LFTs ICD Codes: R79.89 - Other specified abnormal findings of blood chemistry SNOMED: 378667289 (2) Cholecystitis, acute ICD Codes: K81.0 - Acute cholecystitis SNOMED: 20177955 (3) Hepatitis C ICD Codes: B19.20 - Unspecified viral hepatitis C without hepatic coma SNOMED: 32894475 (4) Fatty liver ICD Codes: K76.0 - Fatty (change of) liver, not elsewhere classified SNOMED: 899087765 (5) Alcoholic pancreatitis ICD Codes: K85.20 - Alcohol induced acute pancreatitis without necrosis or infection SNOMED: 904431034 (6) Pancreatitis, acute ICD Codes: K85.90 - Acute pancreatitis without necrosis or infection, unspecified SNOMED: 996192503 Status: unchanged Status Narrative Discussed with Dr. Yip. Assessment/Plan SUMMARY OF FINDINGS: 1. 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 2. Status post ERCP with sphincterotomy, balloon assistance sludge and some pus extraction from the common bile duct and then stent placement. s/p open jocelyn, now in ICU with pancreatitis RECOMMENDATIONS: follow up surgical recommendations hold NGTF, patient has pancreatitis now, start TPN tonight keep npo prn transfusions trend lipase fu labs The patient will need repeat ERCP in 6 to 8 weeks for stent removal. The patient was seen and examined at bedside and all new and available data was reviewed in the patients chart. I agree with the above findings, impression and plan. (Patient seen earlier today. Signature stamp does not reflect patient encounter time.). - Toñito Yip MD Subjective Subjective limited Objective Last 24 Hour Vital Signs Date Time Temp Pulse Resp B/P (MAP) Pulse Ox O2 Delivery O2 Flow Rate FiO2 07/17/18 13:00 101.0 111 34 148/79 96 Venturi Mask 45 07/17/18 12:00 105 07/17/18 12:00 105 16 139/76 96 Venturi Mask 45 07/17/18 12:00 Venturi Mask 8.0 Venturi Mask 07/17/18 11:00 104 18 127/72 96 Venturi Mask 45 07/17/18 10:00 96 12 116/71 100 Venturi Mask 45 07/17/18 09:00 100 26 124/69 98 Venturi Mask 45 07/17/18 08:08 85 99/67 1/29/19 08:08 85 99/67 07/17/18 08:00 98.7 87 12 99/67 100 Venturi Mask 45 07/17/18 08:00 Venturi Mask 8.0 Venturi Mask 07/17/18 08:00 87 07/17/18 07:18 120 20 98 Venturi Mask 10.0 45 07/17/18 07:00 118 12 102/71 100 Venturi Mask 45 07/17/18 06:58 117 20 Venturi Mask 10.0 45 07/17/18 06:56 117 22 99 Venturi Mask 10.0 45 07/17/18 06:00 122 11 103/68 97 Venturi Mask 45 07/17/18 05:00 125 11 110/75 97 Venturi Mask 45 07/17/18 04:00 86 07/17/18 04:00 98.6 124 12 113/73 98 Venturi Mask 45 07/17/18 04:00 Venturi Mask 8.0 Venturi Mask 07/17/18 03:51 124 12 97 Venturi Mask 10.0 45 07/17/18 03:30 101 26 98 Venturi Mask 10.0 45 07/17/18 03:00 88 10 96/57 97 Venturi Mask 45 07/17/18 02:00 98 24 130/75 99 Venturi Mask 45 07/17/18 01:00 98 26 120/72 100 Venturi Mask 45 07/17/18 00:00 101 07/17/18 00:00 103 26 114/69 97 Venturi Mask 45 07/17/18 00:00 Venturi Mask 8.0 Venturi Mask 07/16/18 23:27 106 25 98 Venturi Mask 10.0 45 07/16/18 23:14 101 26 98 Venturi Mask 10.0 45 07/16/18 23:00 102 26 117/68 98 Venturi Mask 45 07/16/18 22:15 100.3 07/16/18 22:00 106 25 118/69 97 Venturi Mask 45 07/16/18 21:00 102.6 111 25 133/79 97 Venturi Mask 45 07/16/18 20:00 104 16 118/71 99 Venturi Mask 45 07/16/18 20:00 105 07/16/18 20:00 Venturi Mask 8.0 Venturi Mask 07/16/18 19:45 105 15 98 Venturi Mask 10.0 45 07/16/18 19:15 102 15 95 Venturi Mask 10.0 45 07/16/18 19:10 102 15 Venturi Mask 10.0 45 07/16/18 19:00 104 13 126/72 94 Mechanical Ventilator 30 07/16/18 18:00 100 13 114/80 94 Mechanical Ventilator 30 07/16/18 17:00 95 13 102/67 94 Mechanical Ventilator 30 07/16/18 16:00 115 07/16/18 16:00 Venturi Mask 8.0 Venturi Mask 07/16/18 16:00 99.8 83 24 98/68 100 Mechanical Ventilator 30 07/16/18 15:00 86 13 96/56 94 Mechanical Ventilator 30 07/16/18 15:00 Venturi Mask 10.0 45 07/16/18 15:00 134 28 99 Venturi Mask 10.0 45 07/16/18 14:00 98 13 91/54 96 Mechanical Ventilator 30 Intake and Output 07/16/18 07/17/18 19:00 07:00 Intake Total 2325.0 ml 1041.7 ml Output Total 3350 ml 3270 ml Balance -1025.0 ml -2228.3 ml Free Water 160 ml IV Total 2165.0 ml 1041.7 ml Output Urine Total 3290 ml 3240 ml Drainage Total 60 ml 30 ml # Bowel Movements 1 5 Laboratory Tests Test 07/17/18 05:00 White Blood Count 21.5 K/UL (4.8-10.8) H Red Blood Count 2.99 M/UL (4.70-6.10) L Hemoglobin 10.4 G/DL (14.2-18.0) L Hematocrit 30.7 % (42.0-52.0) L Mean Corpuscular Volume 103 FL (80-99) H Mean Corpuscular Hemoglobin 34.9 PG (27.0-31.0) H Mean Corpuscular Hemoglobin Concent 34.0 G/DL (32.0-36.0) Red Cell Distribution Width 14.9 % (11.6-14.8) H Platelet Count 689 K/UL (150-450) H Mean Platelet Volume 6.1 FL (6.5-10.1) L Neutrophils (%) (Auto) % (45.0-75.0) Lymphocytes (%) (Auto) % (20.0-45.0) Monocytes (%) (Auto) % (1.0-10.0) Eosinophils (%) (Auto) % (0.0-3.0) Basophils (%) (Auto) % (0.0-2.0) Differential Total Cells Counted 100 Neutrophils % (Manual) 85 % (45-75) H Lymphocytes % (Manual) 6 % (20-45) L Monocytes % (Manual) 5 % (1-10) Eosinophils % (Manual) 2 % (0-3) Basophils % (Manual) 0 % (0-2) Band Neutrophils 2 % (0-8) Platelet Estimate Increased H Platelet Morphology Normal Macrocytosis 1+ Prothrombin Time 11.2 SEC (9.30-11.50) Prothromb Time International Ratio 1.1 (0.9-1.1) Activated Partial Thromboplast Time 27 SEC (23-33) Sodium Level 139 MMOL/L (136-145) Potassium Level 4.0 MMOL/L (3.5-5.1) Chloride Level 108 MMOL/L (98-107) H Carbon Dioxide Level 24 MMOL/L (21-32) Anion Gap 7 mmol/L (5-15) Blood Urea Nitrogen 5 mg/dL (7-18) L Creatinine 0.8 MG/DL (0.55-1.30) Estimat Glomerular Filtration Rate > 60 mL/min (>60) Glucose Level 99 MG/DL (74-106) Calcium Level 8.5 MG/DL (8.5-10.1) Total Bilirubin 0.6 MG/DL (0.2-1.0) Aspartate Amino Transf (AST/SGOT) 55 U/L (15-37) H Alanine Aminotransferase (ALT/SGPT) 53 U/L (12-78) Alkaline Phosphatase 79 U/L (46-116) Total Protein 7.1 G/DL (6.4-8.2) Albumin 1.8 G/DL (3.4-5.0) L Globulin 5.3 g/dL Albumin/Globulin Ratio 0.3 (1.0-2.7) L Lipase 1138 U/L (73-393) H Height (Feet): 5 Height (Inches): 9.00 Weight (Pounds): 160 General Appearance: no apparent distress Cardiovascular: normal rate Respiratory/Chest: normal breath sounds, no respiratory distress Abdominal Exam: normal bowel sounds, non tender, soft, other - PICC Extremities: non-tender Sonja Neely NP Jul 17, 2018 13:57
--- NOTE | 2018-07-17 15:29 | Pulmonolgy Critical Care Note ---
Critical Care - Asmt/Plan Problems: (1) Respiratory disorder with ventilator dependence (2) Gangrenous cholecystitis (3) S/P cholecystectomy (4) Abnormal LFTs (5) Cholecystitis, acute (6) Hepatitis C (7) Alcoholic pancreatitis (8) Pancreatitis, acute (9) Alcohol abuse (10) Fatty liver (11) Tobacco use (12) Blood loss anemia (13) Pneumonia Respiratory: adjust FIO2 - Titrate down to keep SaO2 > 92%, ABG, other - HHN's Cardiac: continue to monitor HR/BP Renal: keep IV fluid, check electrolytes Infectious Disease: check cultures, continue antibiotics Gastrointestinal: other - NPO, TPN, F/U surg and GI recs Endocrine: monitor blood sugar Hematologic: monitor H/H Neurologic: keep patient comfortable, other - Monitor MS - ABG, ammonia, CT head Prophylaxis: Protonix, Heparin Disposition: keep in ICU Time Spent (Minutes): 40 Notes Reviewed: binding printer, GI, other - surgery Discussed with: nurses, consultants Critical Care - Objective Last 24 Hour Vital Signs Date Time Temp Pulse Resp B/P (MAP) Pulse Ox O2 Delivery O2 Flow Rate FiO2 07/17/18 15:00 111 24 141/80 96 Venturi Mask 45 07/17/18 14:00 104 21 128/74 97 Venturi Mask 45 07/17/18 13:00 101.0 111 34 148/79 96 Venturi Mask 45 07/17/18 12:00 105 07/17/18 12:00 105 16 139/76 96 Venturi Mask 45 07/17/18 12:00 Venturi Mask 8.0 Venturi Mask 07/17/18 11:00 104 18 127/72 96 Venturi Mask 45 07/17/18 10:00 96 12 116/71 100 Venturi Mask 45 07/17/18 09:00 100 26 124/69 98 Venturi Mask 45 07/17/18 08:08 85 99/67 07/17/18 08:08 85 99/67 07/17/18 08:00 98.7 87 12 99/67 100 Venturi Mask 45 07/17/18 08:00 Venturi Mask 8.0 Venturi Mask 07/17/18 08:00 87 07/17/18 07:18 120 20 98 Venturi Mask 10.0 45 07/17/18 07:00 118 12 102/71 100 Venturi Mask 45 07/17/18 06:58 117 20 Venturi Mask 10.0 45 07/17/18 06:56 117 22 99 Venturi Mask 10.0 45 07/17/18 06:00 122 11 103/68 97 Venturi Mask 45 07/17/18 05:00 125 11 110/75 97 Venturi Mask 45 07/17/18 04:00 86 07/17/18 04:00 98.6 124 12 113/73 98 Venturi Mask 45 07/17/18 04:00 Venturi Mask 8.0 Venturi Mask 07/17/18 03:51 124 12 97 Venturi Mask 10.0 45 07/17/18 03:30 101 26 98 Venturi Mask 10.0 45 07/17/18 03:00 88 10 96/57 97 Venturi Mask 45 07/17/18 02:00 98 24 130/75 99 Venturi Mask 45 07/17/18 01:00 98 26 120/72 100 Venturi Mask 45 07/17/18 00:00 101 07/17/18 00:00 103 26 114/69 97 Venturi Mask 45 07/17/18 00:00 Venturi Mask 8.0 Venturi Mask 07/16/18 23:27 106 25 98 Venturi Mask 10.0 45 07/16/18 23:14 101 26 98 Venturi Mask 10.0 45 07/16/18 23:00 102 26 117/68 98 Venturi Mask 45 07/16/18 22:15 100.3 07/16/18 22:00 106 25 118/69 97 Venturi Mask 45 07/16/18 21:00 102.6 111 25 133/79 97 Venturi Mask 45 07/16/18 20:00 104 16 118/71 99 Venturi Mask 45 07/16/18 20:00 105 07/16/18 20:00 Venturi Mask 8.0 Venturi Mask 07/16/18 19:45 105 15 98 Venturi Mask 10.0 45 07/16/18 19:15 102 15 95 Venturi Mask 10.0 45 07/16/18 19:10 102 15 Venturi Mask 10.0 45 07/16/18 19:00 104 13 126/72 94 Mechanical Ventilator 30 07/16/18 18:00 100 13 114/80 94 Mechanical Ventilator 30 07/16/18 17:00 95 13 102/67 94 Mechanical Ventilator 30 07/16/18 16:00 115 07/16/18 16:00 Venturi Mask 8.0 Venturi Mask 07/16/18 16:00 99.8 83 24 98/68 100 Mechanical Ventilator 30 Status: obtunded Condition: critical HEENT: atraumatic, normocephalic Lungs: rhonchi Heart: HR/BP stable Abdomen: soft, active bowel sounds, other - wound dressed JUNE Extremities: no C/C/E Accucheck: 91 Blood Sugars: BS controlled Critical Care - Subjective ROS Limited/Unobtainable: Yes ICU Day: 6 Intubation Day: Ext Interval Events: Ext on VM Tm 101 Lethargic but arousable WCt 21 Plan to start TPN tonight Condition: critical IV Access: PICC EKG Rhythm: Sinus Tachycardia FI02: 45 Vent Support Breath Rate: 14 Vent Support Mode: CPAP Vent Tidal Volume: 500 Sputum Amount: None PEEP: 5.0 PIP: 15 Fluids: D51/2NS20K@150 Drips: N/A Tube Feeding Amount: 20 I&O: Intake and Output 07/16/18 07/17/18 19:00 07:00 Intake Total 2325.0 ml 1041.7 ml Output Total 3350 ml 3270 ml Balance -1025.0 ml -2228.3 ml Free Water 160 ml IV Total 2165.0 ml 1041.7 ml Output Urine Total 3290 ml 3240 ml Drainage Total 60 ml 30 ml # Bowel Movements 1 5 Subjective: KEO ET-Tube: 8.0 ET Position: 24 Labs: Laboratory Tests Test 07/17/18 05:00 White Blood Count 21.5 K/UL (4.8-10.8) H Red Blood Count 2.99 M/UL (4.70-6.10) L Hemoglobin 10.4 G/DL (14.2-18.0) L Hematocrit 30.7 % (42.0-52.0) L Mean Corpuscular Volume 103 FL (80-99) H Mean Corpuscular Hemoglobin 34.9 PG (27.0-31.0) H Mean Corpuscular Hemoglobin Concent 34.0 G/DL (32.0-36.0) Red Cell Distribution Width 14.9 % (11.6-14.8) H Platelet Count 689 K/UL (150-450) H Mean Platelet Volume 6.1 FL (6.5-10.1) L Neutrophils (%) (Auto) % (45.0-75.0) Lymphocytes (%) (Auto) % (20.0-45.0) Monocytes (%) (Auto) % (1.0-10.0) Eosinophils (%) (Auto) % (0.0-3.0) Basophils (%) (Auto) % (0.0-2.0) Differential Total Cells Counted 100 Neutrophils % (Manual) 85 % (45-75) H Lymphocytes % (Manual) 6 % (20-45) L Monocytes % (Manual) 5 % (1-10) Eosinophils % (Manual) 2 % (0-3) Basophils % (Manual) 0 % (0-2) Band Neutrophils 2 % (0-8) Platelet Estimate Increased H Platelet Morphology Normal Macrocytosis 1+ Prothrombin Time 11.2 SEC (9.30-11.50) Prothromb Time International Ratio 1.1 (0.9-1.1) Activated Partial Thromboplast Time 27 SEC (23-33) Sodium Level 139 MMOL/L (136-145) Potassium Level 4.0 MMOL/L (3.5-5.1) Chloride Level 108 MMOL/L (98-107) H Carbon Dioxide Level 24 MMOL/L (21-32) Anion Gap 7 mmol/L (5-15) Blood Urea Nitrogen 5 mg/dL (7-18) L Creatinine 0.8 MG/DL (0.55-1.30) Estimat Glomerular Filtration Rate > 60 mL/min (>60) Glucose Level 99 MG/DL (74-106) Calcium Level 8.5 MG/DL (8.5-10.1) Total Bilirubin 0.6 MG/DL (0.2-1.0) Aspartate Amino Transf (AST/SGOT) 55 U/L (15-37) H Alanine Aminotransferase (ALT/SGPT) 53 U/L (12-78) Alkaline Phosphatase 79 U/L (46-116) Total Protein 7.1 G/DL (6.4-8.2) Albumin 1.8 G/DL (3.4-5.0) L Globulin 5.3 g/dL Albumin/Globulin Ratio 0.3 (1.0-2.7) L Lipase 1138 U/L (73-393) H Trenton Ladd MD Jul 17, 2018 15:29
--- NOTE | 2018-07-17 15:32 | NUR ---
NURSE NOTES: Dr Ladd here to see pt. CT head, ABG and ammonia level ordered. Will continue to monitor.
--- NOTE | 2018-07-17 17:34 | General Progress Note ---
Assessment/Plan Status: stable Assessment/Plan #Sepsis #Acute purulent gangrenous cholecystitis. #acute Hypoxic respiratory failure #Acute Metabolic Encephalopathy - due to alcohol withdrawal and sepsis - zosyn - bcx x 2 ngtd - s/p ercp 07/12 - gen surg consulted, s/p lap jocelyn converted to open jocelyn 07/12 - pulm consulted - pain control - appreciate surg recs - fluids - tube feeds held per GI -s/p extubation 07/16/18, saturating well on supplemental O2, titrate O2 goal of SaO2 >92% #Acute Blood Loss Anemia - due to recent surgery - no overt bleeding noted currently - hgb 6.8 07/15, transfuse 2U 9.7 (07/16) -Hb stable #Pleural Effusions - b/l - per mrcp - stable - intubated now - pulm consulted #Alcohol Pancreatitis #Intractable abdominal pain #intractable nausea/vomiting #Transaminitis #Alcohol Hepatitis #Alcohol withdrawals #Fatty Liver Disease #Hepatitis C - LFTs 446/532 - Lipase 687 - due to alcohol abuse - INR 1.0 - discriminant function, 4.5 , no need for steroids - US abd completed and reviewed, showing fatty liver disease. GS present, no obstruction noted - ppi - PRN antiemetics, zofran prn - Banana bag - close lab monitoring - IVF - monitor carefully for withdrawals - tube feeds held due to worsening pancreatitis -PICC line placed, will start on TPN tonight - Per GI, will need ERCP in 6-8 weeks for stent removal #Failure to thrive - due to alcohol withdrawals and the above - alcoholic pancreatitis - fluids #Alcohol Abuse - educated on cessation for 15 mins - patient states he understands and will try to quit - RN notified to monitor carefully with withdrawals - prn ativan - ciwa #Uncontrolled HTN - clonidine 0.1 mg po prn - amlodipine 10mg qday - due to withdrawals #Tobacco abuse - smokes 1ppd - educated on smoking cessation for over 15 mins, states he understands the risks of smoking and will try to quit diet: NPO TPN to be started tonight Subjective Date patient seen: Jul 17, 2018 Time patient seen: 11:00 ROS Limited/Unobtainable: Yes Allergies: Coded Allergies: No Known Allergies (Unverified , 12/14/16) Subjective Pt extubated last night, saturating well on supplemental O2 Objective Last 24 Hour Vital Signs Date Time Temp Pulse Resp B/P (MAP) Pulse Ox O2 Delivery O2 Flow Rate FiO2 07/17/18 16:00 100.0 109 27 137/80 96 Venturi Mask 45 07/17/18 16:00 Venturi Mask 8.0 Venturi Mask 07/17/18 15:00 111 24 141/80 96 Venturi Mask 45 07/17/18 14:00 104 21 128/74 97 Venturi Mask 45 07/17/18 13:00 101.0 111 34 148/79 96 Venturi Mask 45 07/17/18 12:00 105 07/17/18 12:00 105 16 139/76 96 Venturi Mask 45 07/17/18 12:00 Venturi Mask 8.0 Venturi Mask 07/17/18 11:00 104 18 127/72 96 Venturi Mask 45 07/17/18 10:00 96 12 116/71 100 Venturi Mask 45 07/17/18 09:00 100 26 124/69 98 Venturi Mask 45 07/17/18 08:08 85 99/67 07/17/18 08:08 85 99/67 07/17/18 08:00 98.7 87 12 99/67 100 Venturi Mask 45 07/17/18 08:00 Venturi Mask 8.0 Venturi Mask 07/17/18 08:00 87 07/17/18 07:18 120 20 98 Venturi Mask 10.0 45 07/17/18 07:00 118 12 102/71 100 Venturi Mask 45 07/17/18 06:58 117 20 Venturi Mask 10.0 45 07/17/18 06:56 117 22 99 Venturi Mask 10.0 45 07/17/18 06:00 122 11 103/68 97 Venturi Mask 45 07/17/18 05:00 125 11 110/75 97 Venturi Mask 45 07/17/18 04:00 86 07/17/18 04:00 98.6 124 12 113/73 98 Venturi Mask 45 07/17/18 04:00 Venturi Mask 8.0 Venturi Mask 07/17/18 03:51 124 12 97 Venturi Mask 10.0 45 07/17/18 03:30 101 26 98 Venturi Mask 10.0 45 07/17/18 03:00 88 10 96/57 97 Venturi Mask 45 07/17/18 02:00 98 24 130/75 99 Venturi Mask 45 07/17/18 01:00 98 26 120/72 100 Venturi Mask 45 07/17/18 00:00 101 07/17/18 00:00 103 26 114/69 97 Venturi Mask 45 07/17/18 00:00 Venturi Mask 8.0 Venturi Mask 07/16/18 23:27 106 25 98 Venturi Mask 10.0 45 07/16/18 23:14 101 26 98 Venturi Mask 10.0 45 07/16/18 23:00 102 26 117/68 98 Venturi Mask 45 07/16/18 22:15 100.3 07/16/18 22:00 106 25 118/69 97 Venturi Mask 45 07/16/18 21:00 102.6 111 25 133/79 97 Venturi Mask 45 07/16/18 20:00 104 16 118/71 99 Venturi Mask 45 07/16/18 20:00 105 07/16/18 20:00 Venturi Mask 8.0 Venturi Mask 07/16/18 19:45 105 15 98 Venturi Mask 10.0 45 07/16/18 19:15 102 15 95 Venturi Mask 10.0 45 07/16/18 19:10 102 15 Venturi Mask 10.0 45 07/16/18 19:00 104 13 126/72 94 Mechanical Ventilator 30 07/16/18 18:00 100 13 114/80 94 Mechanical Ventilator 30 Intake and Output 07/16/18 07/17/18 19:00 07:00 Intake Total 2325.0 ml 1041.7 ml Output Total 3350 ml 3270 ml Balance -1025.0 ml -2228.3 ml Free Water 160 ml IV Total 2165.0 ml 1041.7 ml Output Urine Total 3290 ml 3240 ml Drainage Total 60 ml 30 ml # Bowel Movements 1 5 Laboratory Tests 07/17/18 05:00: White Blood Count 21.5H, Red Blood Count 2.99L, Hemoglobin 10.4L, Hematocrit 30.7L, Mean Corpuscular Volume 103H, Mean Corpuscular Hemoglobin 34.9H, Mean Corpuscular Hemoglobin Concent 34.0, Red Cell Distribution Width 14.9H, Platelet Count 689H, Mean Platelet Volume 6.1L, Neutrophils (%) (Auto) , Lymphocytes (%) (Auto) , Monocytes (%) (Auto) , Eosinophils (%) (Auto) , Basophils (%) (Auto) , Differential Total Cells Counted 100, Neutrophils % ( Manual) 85H, Lymphocytes % (Manual) 6L, Monocytes % (Manual) 5, Eosinophils % ( Manual) 2, Basophils % (Manual) 0, Band Neutrophils 2, Platelet Estimate IncreasedH, Platelet Morphology Normal, Macrocytosis 1+, Prothrombin Time 11.2, Prothromb Time International Ratio 1.1, Activated Partial Thromboplast Time 27, Sodium Level 139, Potassium Level 4.0, Chloride Level 108H, Carbon Dioxide Level 24, Anion Gap 7, Blood Urea Nitrogen 5L, Creatinine 0.8, Estimat Glomerular Filtration Rate > 60, Glucose Level 99, Calcium Level 8.5, Total Bilirubin 0.6, Aspartate Amino Transf (AST/SGOT) 55H, Alanine Aminotransferase ( ALT/SGPT) 53, Alkaline Phosphatase 79, Total Protein 7.1, Albumin 1.8L, Globulin 5.3, Albumin/Globulin Ratio 0.3L, Lipase 1138H 07/17/18 15:27: Arterial Blood pH 7.504H, Arterial Blood Partial Pressure CO2 29.1L, Arterial Blood Partial Pressure O2 55.6L, Arterial Blood HCO3 22.4, Arterial Blood Oxygen Saturation 90.4L, Arterial Blood Base Excess 0.1, Michael Test Positive 07/17/18 16:08: Ammonia 89H Height (Feet): 5 Height (Inches): 9.00 Weight (Pounds): 160 General Appearance: WD/WN, no apparent distress EENT: PERRL/EOMI, normal ENT inspection Neck: non-tender, normal alignment Cardiovascular: normal peripheral pulses, normal rate, regular rhythm Respiratory/Chest: chest wall non-tender, lungs clear, no respiratory distress , no accessory muscle use Abdomen: normal bowel sounds, non tender, soft, no organomegaly Extremities: non-tender, no calf tenderness Edema: no edema noted Arm (L), no edema noted Arm (R), no edema noted Leg (L), no edema noted Leg (R), no edema noted Pedal (L), no edema noted Pedal (R), no edema noted Generalized Neurologic: alert, responsive Skin: normal pigmentation Denice Boateng MD Jul 17, 2018 17:34
--- NOTE | 2018-07-17 19:16 | General Progress Note ---
Assessment/Plan Assessment/Plan Anemia of chronic disease (or of iron deficiency) due to underlying chronic medical issues, multifactorial --> Anemia workup has been ordered --> No evidence of hemolysis is noted, peripheral smear has been reviewed. --> Hgb goal >7. Transfuse prn. --> Epogen or iron at this time is not particularly indicated --> Medications have been reviewed # Thrombocytopenia is likely related to underlying reactive processs from pancreatitis, acute, as well as alcoholic intoxication and myelosuppression --> also patient has a history of hepatitis C from prior admission --> smear has been reviewed --> heparin sq is okay if needed for dvt ppx # Erythrocytosis is likely related to dehydration --> hgb goal >7, no evidence of bleeding currently --> given ivf already # Leukocytosis no e/o annie infection --> could be due to reactive process v cholecystitis --> wbc trend: 22-->18-->16-->14 --> peripheral smear has been reviewed --> ercp tomorrow per surg/gi # Pancreatitis with alcohol abuse --> recommend etoh cessation --> amylase and lipase prn -->Status post ERCP with sphincterotomy # Transaminitis --> likely related to etoh abuse --> in past seen by gi # Alcohol abuse -- recommend cessation The timing of this note does not necessarily reflect the time of the patient was seen Greatly appreciate consultation! Subjective ROS Limited/Unobtainable: Yes Allergies: Coded Allergies: No Known Allergies (Unverified , 06/01/16) Subjective 07/05: bp was high today and dc was cancelled until tomorow, on librium 07/06: wbc was high though other counts are better, no f/c 07/10: seen by bedside, heart rate increased, appears agitated, wbc 13.9 07/11: to get ercp tomorrow, surgery and gi following 07/12 ercp, sphincterotomy, stent placement surgery done today, currently having tremors and tachy. wbc 15.9, hgb 14, plt 429 07/13: Pt is intubated, seen by bedside,wbc 22, on abx, no acute distress 07/14: awake and comfortable, still intubated on vent, labs noted hb trending down, wbc 18, hgb 8. 07/16: seen by bedside, awake, comfortable, wbc 14, hgb 9, plt 613 07/17: awake, comfortable, status post ERCP with sphincterotomy wbc 21, hgb 10, plt 689. Objective Last 24 Hour Vital Signs Date Time Temp Pulse Resp B/P (MAP) Pulse Ox O2 Delivery O2 Flow Rate FiO2 07/17/18 19:00 105 20 140/71 100 Venturi Mask 45 07/17/18 18:00 108 26 131/82 96 Venturi Mask 45 07/17/18 17:00 108 29 129/76 97 Venturi Mask 45 07/17/18 16:00 108 07/17/18 16:00 100.0 109 27 137/80 96 Venturi Mask 45 07/17/18 16:00 Venturi Mask 8.0 Venturi Mask 07/17/18 15:00 111 24 141/80 96 Venturi Mask 45 07/17/18 14:00 104 21 128/74 97 Venturi Mask 45 07/17/18 13:00 101.0 111 34 148/79 96 Venturi Mask 45 07/17/18 12:00 105 07/17/18 12:00 105 16 139/76 96 Venturi Mask 45 07/17/18 12:00 Venturi Mask 8.0 Venturi Mask 07/17/18 11:00 104 18 127/72 96 Venturi Mask 45 07/17/18 10:00 96 12 116/71 100 Venturi Mask 45 07/17/18 09:00 100 26 124/69 98 Venturi Mask 45 07/17/18 08:08 85 99/67 07/17/18 08:08 85 99/67 07/17/18 08:00 98.7 87 12 99/67 100 Venturi Mask 45 07/17/18 08:00 Venturi Mask 8.0 Venturi Mask 07/17/18 08:00 87 07/17/18 07:18 120 20 98 Venturi Mask 10.0 45 07/17/18 07:00 118 12 102/71 100 Venturi Mask 45 07/17/18 06:58 117 20 Venturi Mask 10.0 45 07/17/18 06:56 117 22 99 Venturi Mask 10.0 45 07/17/18 06:00 122 11 103/68 97 Venturi Mask 45 07/17/18 05:00 125 11 110/75 97 Venturi Mask 45 07/17/18 04:00 86 07/17/18 04:00 98.6 124 12 113/73 98 Venturi Mask 45 07/17/18 04:00 Venturi Mask 8.0 Venturi Mask 07/17/18 03:51 124 12 97 Venturi Mask 10.0 45 07/17/18 03:30 101 26 98 Venturi Mask 10.0 45 07/17/18 03:00 88 10 96/57 97 Venturi Mask 45 07/17/18 02:00 98 24 130/75 99 Venturi Mask 45 07/17/18 01:00 98 26 120/72 100 Venturi Mask 45 07/17/18 00:00 101 07/17/18 00:00 103 26 114/69 97 Venturi Mask 45 07/17/18 00:00 Venturi Mask 8.0 Venturi Mask 07/16/18 23:27 106 25 98 Venturi Mask 10.0 45 07/16/18 23:14 101 26 98 Venturi Mask 10.0 45 07/16/18 23:00 102 26 117/68 98 Venturi Mask 45 07/16/18 22:15 100.3 07/16/18 22:00 106 25 118/69 97 Venturi Mask 45 07/16/18 21:00 102.6 111 25 133/79 97 Venturi Mask 45 07/16/18 20:00 104 16 118/71 99 Venturi Mask 45 07/16/18 20:00 105 07/16/18 20:00 Venturi Mask 8.0 Venturi Mask 07/16/18 19:45 105 15 98 Venturi Mask 10.0 45 07/16/18 19:15 102 15 95 Venturi Mask 10.0 45 Intake and Output 07/16/18 07/17/18 19:00 07:00 Intake Total 2325.0 ml 1041.7 ml Output Total 3350 ml 3270 ml Balance -1025.0 ml -2228.3 ml Free Water 160 ml IV Total 2165.0 ml 1041.7 ml Output Urine Total 3290 ml 3240 ml Drainage Total 60 ml 30 ml # Bowel Movements 1 5 Laboratory Tests 07/17/18 05:00: White Blood Count 21.5H, Red Blood Count 2.99L, Hemoglobin 10.4L, Hematocrit 30.7L, Mean Corpuscular Volume 103H, Mean Corpuscular Hemoglobin 34.9H, Mean Corpuscular Hemoglobin Concent 34.0, Red Cell Distribution Width 14.9H, Platelet Count 689H, Mean Platelet Volume 6.1L, Neutrophils (%) (Auto) , Lymphocytes (%) (Auto) , Monocytes (%) (Auto) , Eosinophils (%) (Auto) , Basophils (%) (Auto) , Differential Total Cells Counted 100, Neutrophils % ( Manual) 85H, Lymphocytes % (Manual) 6L, Monocytes % (Manual) 5, Eosinophils % ( Manual) 2, Basophils % (Manual) 0, Band Neutrophils 2, Platelet Estimate IncreasedH, Platelet Morphology Normal, Macrocytosis 1+, Prothrombin Time 11.2, Prothromb Time International Ratio 1.1, Activated Partial Thromboplast Time 27, Sodium Level 139, Potassium Level 4.0, Chloride Level 108H, Carbon Dioxide Level 24, Anion Gap 7, Blood Urea Nitrogen 5L, Creatinine 0.8, Estimat Glomerular Filtration Rate > 60, Glucose Level 99, Calcium Level 8.5, Total Bilirubin 0.6, Aspartate Amino Transf (AST/SGOT) 55H, Alanine Aminotransferase ( ALT/SGPT) 53, Alkaline Phosphatase 79, Total Protein 7.1, Albumin 1.8L, Globulin 5.3, Albumin/Globulin Ratio 0.3L, Lipase 1138H 07/17/18 15:27: Arterial Blood pH 7.504H, Arterial Blood Partial Pressure CO2 29.1L, Arterial Blood Partial Pressure O2 55.6L, Arterial Blood HCO3 22.4, Arterial Blood Oxygen Saturation 90.4L, Arterial Blood Base Excess 0.1, Michael Test Positive 07/17/18 16:08: Ammonia 89H Height (Feet): 5 Height (Inches): 9.00 Weight (Pounds): 160 Objective Physical Exam General Appearance: A+O x3, NAD HEENT: normocephalic, atraumatic Neck: non-tender, normal alignment Respiratory/Chest: chest wall non-tender, lungs clear Cardiovascular/Chest: normal peripheral pulses, normal rate Abdomen: normal bowel sounds, non tender Extremities: normal range of motion Guy Salazar MD Jul 17, 2018 19:16
--- NOTE | 2018-07-17 19:28 | NUR ---
NURSE NOTES: Report given to Dmitri HERRERA
--- NOTE | 2018-07-17 19:30 | NUR ---
NURSE NOTES: Recvd.quiet in bed Lethargic,Resp.slight Labored on exertion.On 45%VM inh.Sat.97-98%.lungs few Rh.Diminished BS at bases.See V/S.Temp.-100.3.Cooling measures cont.to implement.Scope SR-ST.Pos. chg.F/cath.patent diuresis well.See I/O.NGT intact clamped.NPO.IV hydration infusing.
[2018-07-17] MEDS: Dyna-Hex 2% Top Sol 2oz TOPIC SCH (19:55)
[2018-07-17] MEDS: TPN IV SCH (20:24)
[2018-07-17] MEDS: FAT EMULSION 20% IV SCH (20:24)
--- NOTE | 2018-07-17 22:10 | NUR ---
NURSE NOTES: HS care provided.Pos.chg.Backrub with Lotion.Due med.admin.Kept NPO.IV thera.d/c.TPN infusion started.
[2018-07-18] VITALS (26 sets, daily range): BP systolic 113–144; BP diastolic 68–85
[2018-07-18] MEDS ORDERED: Dextrose 50% 25ml Syringe IV PRN
--- NOTE | 2018-07-18 00:05 | NUR ---
NURSE NOTES: See V/S.Scope Rhythm same.Pos.Chg.Suctioned nasally Tk.yellowish beige sec.Cont.to enc.deep breathing/coughing ex.P.Ox-99%.Cont.Monitoring.FSBS-110 No cov.
[2018-07-18] MEDS: Albuterol/Ipratropium 3ml neb HHN SCH ×4 (01:12→19:01)
--- NOTE | 2018-07-18 02:30 | NUR ---
NURSE NOTES: Repositioned,Kept comfortable.Status same.
--- NOTE | 2018-07-18 04:15 | NUR ---
NURSE NOTES: Inct.of loose br.BM.nick Berger chg.Post-op drsng.aseptically cleansed dahiana chg.Blood drawn for cbc/cmp etc.spec.to Lab.VSS.Scope rhythm same.No CP.NPO maintained.Cont.on TPN Thera.Diuresis well.See I/O.
[2018-07-18] MEDS: Zosyn 4.5gm q8h **Extended infusion IVPB SCH ×2 (05:02)
[2018-07-18] MEDS: Insulin NovoLOG Flexpen S/S (Mod) SUBQ SCH ×5 (05:15→23:17)
[2018-07-18 05:47] LABS: HEMOGLOBIN 11.5 G/DL (14.2-18.0); MEAN CORPUSCULAR VOLUME 102 FL (80-99); PLATELET COUNT 754 K/UL (150-450); RED BLOOD COUNT 3.23 M/UL (4.70-6.10); RED CELL DISTRIBUTION WIDTH 13.9 % (11.6-14.8)
[2018-07-18 06:46] LABS: ALANINE AMINOTRANSFERASE 53 U/L (12-78); ALBUMIN 1.9 G/DL (3.4-5.0); ALBUMIN/GLOBULIN RATIO 0.3 (1.0-2.7); ALKALINE PHOSPHATASE 85 U/L (46-116); ANION GAP 11 mmol/L (5-15); ASPARTATE AMINO TRANSFERASE 61 U/L (15-37); BILIRUBIN,TOTAL 0.6 MG/DL (0.2-1.0); BLOOD UREA NITROGEN 7 mg/dL (7-18); CALCIUM 8.7 MG/DL (8.5-10.1); CARBON DIOXIDE 21 MMOL/L (21-32); CHLORIDE 102 MMOL/L (98-107); CREATININE 0.8 MG/DL (0.55-1.30); POTASSIUM 3.9 MMOL/L (3.5-5.1); SODIUM 134 MMOL/L (136-145)
[2018-07-18 06:51] LABS: WHITE BLOOD COUNT 23.6 K/UL (4.8-10.8)
--- NOTE | 2018-07-18 07:27 | NUR ---
HAND-OFF: Report given to JAVIER LOZANO.
--- NOTE | 2018-07-18 08:00 | NUR ---
NURSE NOTES: Received report from Cecilio HERRERA. Pt sleeping in semi fowlers position. RR even and non labored. O2 sat 100% on 45% venti mask. Pt noted with axillary temp 100.0F; cooling measures applied. NGT placement confirmed via auscultation. TPN running at 78cc/hr. Wound dressing dry and intact. JUNE drain noted with approximately 10cc of serosanguineous fluid. Serrano gravity draining annalisa urine. Bed locked in low position with side rails up x3 and call light tin reach.
[2018-07-18] MEDS: Docusate 100mg/10ml Liq NG SCH ×2 (08:10→18:00)
[2018-07-18] MEDS: Pantoprazole Inj IVP SCH ×2 (08:10→20:11)
[2018-07-18] MEDS: Metoprolol 25mg tab NG SCH (08:11)
[2018-07-18] MEDS: Heparin 5000 units/ml inj SUBQ SCH ×2 (08:13→20:12)
--- NOTE | 2018-07-18 08:37 | General Progress Note ---
Assessment/Plan Status: stable Assessment/Plan #Sepsis #Acute purulent gangrenous cholecystitis. #acute Hypoxic respiratory failure #Acute Metabolic Encephalopathy - due to alcohol withdrawal and sepsis - zosyn - bcx x 2 ngtd - s/p ercp 07/12 - gen surg consulted, s/p lap jocelyn converted to open jocelyn 07/12, requiring patient to remain intubated - extuabted on 07/16.19, currently saturating well above 90% on facemask - pulm consult appreciated - pain control - appreciate surg recs - fluids - TPN cont #Acute Blood Loss Anemia - due to recent surgery - no overt bleeding noted currently - hgb 6.8 07/15, transfuse 2U, 9.7 (07/16) - stable #Pleural Effusions - b/l - per mrcp - stable - pulm consult apprecaited #Alcohol Pancreatitis #Intractable abdominal pain #intractable nausea/vomiting #Transaminitis #Alcohol Hepatitis #Alcohol withdrawals #Fatty Liver Disease #Hepatitis C - LFTs 446/532 - Lipase 687 - due to alcohol abuse - INR 1.0 - discriminant function, 4.5 , no need for steroids - US abd completed and reviewed, showing fatty liver disease. GS present, no obstruction noted - ppi - PRN antiemetics, zofran prn - Banana bag - close lab monitoring - IVF - monitor carefully for withdrawals - tube feeds held due to worsening pancreatitis - TPN - Per GI, will need ERCP in 6-8 weeks for stent removal #Failure to thrive - due to alcohol withdrawals and the above - alcoholic pancreatitis - fluids #Alcohol Abuse - educated on cessation for 15 mins - patient states he understands and will try to quit - RN notified to monitor carefully with withdrawals - prn ativan - ciwa #Uncontrolled HTN - clonidine 0.1 mg po prn - amlodipine 10mg qday - due to withdrawals #Tobacco abuse - smokes 1ppd - educated on smoking cessation for over 15 mins, states he understands the risks of smoking and will try to quit diet: NPO DVT Prophylaxis: SCD, HSQ Code Status: Full Hospital Classification Declaration: Based on this initial evaluation, and depending on the patient's clinical course, I anticipate that this patient will require hospitalization for 2-3days for alcohol abuse, pancreatitis and close respiratory/hemodynamic monitoring. I have reviewed all labs, imaging and medications Disposition: Once the patient is stable to leave the hospital, I anticipate the patient will likely be discharged to the following environment: home I spent over 50 minutes on this patient's case, and over 50% of that time was spent on counseling and/or care . Discussed with patient/family, nursing staff , SW/CM regarding clinical status, treatment course, and disposition planning. over 30 mins of critical care time have been spent on this patient including vent management Time of note may not reflect time of encounter. ------- Date of Discussion: 07/03/18 A [id number] discussion with the patient regarding the patient's advanced care planning took place during this hospitalization on the above date. The discussion included the explanation and discussion of advance directives and associated forms/documents, as well as the patient's current code status. We also discussed at length the patient's medical conditions (both acute and chronic), general prognosis, treatment options, and goals of care. The following summarizes the discussion: Advance Care Planning/Goals of Care: - Will attempt to fill out an AD and/or POLST with the patient prior to discharge, if not already completed - Continue current evaluation and management of any acute and chronic medical issues - Will continue to support the patient/family - Will continue to discuss both short- and long-term goals of care DPOA-HC/Surrogate Decision Maker: : Bonnie Crenshaw Code Status: Full Code AD Forms/Documents Completed: Deferred A total of 34 minutes was spent on this discussion, including counseling, answering questions, and completing, if any, pertinent advanced care planning forms/documents. Subjective Date patient seen: Jul 18, 2018 Time patient seen: 08:35 Allergies: Coded Allergies: No Known Allergies (Unverified , 06/01/16) Subjective f/u pancreatitis, cholecystitis, sepsis, alcoholic hepatitis, nausea, alcohol abuse, alcohol withdrawals s/p ercp 07/12 and subsequent open jocelyn, full of pus, gangrenous jocelyn, drain left in extubated 07/16 TF held on TPN stable improving slowly ROS: 14 point ROS reviewed and negative except per above Objective Last 24 Hour Vital Signs Date Time Temp Pulse Resp B/P (MAP) Pulse Ox O2 Delivery O2 Flow Rate FiO2 07/18/18 08:11 115 131/77 07/18/18 08:11 115 131/77 07/18/18 08:00 Venturi Mask 8.0 Venturi Mask 07/18/18 08:00 100.0 117 24 131/77 97 Venturi Mask 45 07/18/18 07:19 115 24 127/73 99 Venturi Mask 45 07/18/18 07:03 115 23 100 Venturi Mask 10.0 45 07/18/18 07:00 115 24 127/73 99 Venturi Mask 45 07/18/18 06:53 108 26 98 Venturi Mask 10.0 45 07/18/18 06:00 107 25 140/80 99 Venturi Mask 45 07/18/18 05:00 106 23 100 Venturi Mask 45 07/18/18 04:00 109 07/18/18 04:00 99.1 109 31 139/84 100 Venturi Mask 45 07/18/18 04:00 Venturi Mask 8.0 Venturi Mask 07/18/18 03:00 108 24 120/74 99 Venturi Mask 45 07/18/18 02:30 111 22 139/76 99 Venturi Mask 45 07/18/18 02:00 109 23 131/75 98 Venturi Mask 45 07/18/18 01:26 108 23 99 Venturi Mask 10.0 45 07/18/18 01:13 107 24 99 Venturi Mask 10.0 45 07/18/18 01:00 110 25 141/75 100 Venturi Mask 45 07/18/18 00:00 106 07/18/18 00:00 99.4 106 25 121/74 99 Venturi Mask 45 07/18/18 00:00 Venturi Mask 8.0 Venturi Mask 07/17/18 23:00 114 22 139/76 97 Venturi Mask 45 07/17/18 22:00 112 21 147/80 99 Venturi Mask 45 07/17/18 21:00 112 27 134/74 97 Venturi Mask 45 07/17/18 20:35 140/72 07/17/18 20:00 100.3 117 21 141/73 98 Venturi Mask 45 07/17/18 20:00 117 07/17/18 20:00 Venturi Mask 8.0 Venturi Mask 07/17/18 19:27 112 20 100 Venturi Mask 10.0 45 07/17/18 19:13 107 28 Venturi Mask 10.0 45 07/17/18 19:13 107 28 Venturi Mask 10.0 45 07/17/18 19:13 107 28 99 Venturi Mask 10.0 45 07/17/18 19:00 105 20 140/71 100 Venturi Mask 45 07/17/18 18:00 108 26 131/82 96 Venturi Mask 45 07/17/18 17:00 108 29 129/76 97 Venturi Mask 45 07/17/18 16:00 108 07/17/18 16:00 100.0 109 27 137/80 96 Venturi Mask 45 07/17/18 16:00 Venturi Mask 8.0 Venturi Mask 07/17/18 15:00 111 24 141/80 96 Venturi Mask 45 07/17/18 14:00 104 21 128/74 97 Venturi Mask 45 07/17/18 13:00 101.0 111 34 148/79 96 Venturi Mask 45 07/17/18 12:00 105 07/17/18 12:00 105 16 139/76 96 Venturi Mask 45 07/17/18 12:00 Venturi Mask 8.0 Venturi Mask 07/17/18 11:00 104 18 127/72 96 Venturi Mask 45 07/17/18 10:00 96 12 116/71 100 Venturi Mask 45 07/17/18 09:00 100 26 124/69 98 Venturi Mask 45 Intake and Output 07/17/18 07/18/18 19:00 07:00 Intake Total 1408.0 ml 1023.0 ml Output Total 1320 ml 1180 ml Balance 88.0 ml -157.0 ml IV Total 1408.0 ml 1023.0 ml Output Urine Total 1300 ml 1120 ml Drainage Total 20 ml 60 ml # Bowel Movements 2 Laboratory Tests 07/17/18 15:27: Arterial Blood pH 7.504H, Arterial Blood Partial Pressure CO2 29.1L, Arterial Blood Partial Pressure O2 55.6L, Arterial Blood HCO3 22.4, Arterial Blood Oxygen Saturation 90.4L, Arterial Blood Base Excess 0.1, Michael Test Positive 07/17/18 16:08: Ammonia 89H 07/18/18 05:00: White Blood Count 23.6*H, Red Blood Count 3.23L, Hemoglobin 11.5L, Hematocrit 33.0L, Mean Corpuscular Volume 102H, Mean Corpuscular Hemoglobin 35.5H, Mean Corpuscular Hemoglobin Concent 34.8, Red Cell Distribution Width 13.9, Platelet Count 754H, Mean Platelet Volume 6.0L, Neutrophils (%) (Auto) , Lymphocytes (%) (Auto) , Monocytes (%) (Auto) , Eosinophils (%) (Auto) , Basophils (%) (Auto) , Neutrophils % (Manual) [Pending], Lymphocytes % (Manual) [Pending], Platelet Estimate [Pending], Platelet Morphology [Pending], Sodium Level 134L, Potassium Level 3.9, Chloride Level 102, Carbon Dioxide Level 21, Anion Gap 11, Blood Urea Nitrogen 7, Creatinine 0.8, Estimat Glomerular Filtration Rate > 60, Glucose Level 118H, Calcium Level 8.7, Total Bilirubin 0.6, Aspartate Amino Transf (AST/SGOT) 61H, Alanine Aminotransferase (ALT/SGPT) 53, Alkaline Phosphatase 85, Total Protein 7.7, Albumin 1.9L, Globulin 5.8, Albumin/Globulin Ratio 0.3L, Lipase 1676H Height (Feet): 5 Height (Inches): 9.00 Weight (Pounds): 160 Objective General Appearance: alert, stable, awake, on facemask supplemental o2. Lines, tubes and drains: peripheral HEENT: normocephalic, atraumatic, anicteric, PERRL, other - dry mucous membrane Neck: non-tender, normal alignment Respiratory/Chest: chest wall non-tender, mechanical breath sounds, no respiratory distress, no accessory muscle use Cardiovascular/Chest: normal peripheral pulses, normal rate, regular rhythm Abdomen: normal bowel sounds, soft, no organomegaly, no mass, drain in place, Extremities: normal range of motion, non-tender, normal inspection, no calf tenderness, normal capillary refill, non-pitting. +asterixis Skin Exam: normal pigmentation, warm/dry Neurologic: no motor/sensory deficits, alert, oriented x 3, responsive, normal mood/affect Eulogio Siddiqi MD Jul 18, 2018 08:37
--- NOTE | 2018-07-18 10:00 | NUR ---
NURSE NOTES: Bedside rounding done by Dr. Antonio and Dr. Yip. Pt continuing to rest. Awaiting for CT scan.
--- NOTE | 2018-07-18 11:50 | NUR ---
NURSE NOTES: Pt to and from CT with this RN. Pt maintained O2 sat98% while on 45% venti mask. ST to CM with HR 102-110 bpm. NAD noted.
--- NOTE | 2018-07-18 11:55 | Diagnostic Imaging Report ---
Indication: Altered mental status Technique: Contiguous 5 mm thick transaxial imaging of the head obtained in a Siemens Sensation [address] scanner. Soft tissue and bone windows generated. Automatic Exposure Control was utilized. Total Dose length Product (DLP): 1312.[address] Dose Index Volume (CTDIvol): 70.38 mGy Comparison: 07/10/2018 Findings: There is moderate prominence of the ventricles, basal cisterns, and cerebral sulci consistent with atrophy. Moderate, nonspecific, white matter hypoattenuation is noted throughout the brain consistent with chronic small vessel disease. Focus of encephalomalacia noted in the inferior right frontal lobe unchanged from the last study. There is no midline shift, edema, acute hemorrhage, mass effect, or abnormal extra-axial fluid collections. Bones and extra osseous soft tissues are unremarkable. 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 No acute findings. Moderate atrophy of the brain. Evidence of chronic small vessel disease involving white matter tracts. The CT scanner at [facility] is accredited by the [employer] and the scans are performed using dose optimization techniques as appropriate to a performed exam including Automatic Exposure control.
--- NOTE | 2018-07-18 12:34 | Pulmonolgy Critical Care Note ---
Critical Care - Asmt/Plan Problems: (1) Respiratory disorder with ventilator dependence (2) Gangrenous cholecystitis (3) S/P cholecystectomy (4) Abnormal LFTs (5) Cholecystitis, acute (6) Hepatitis C (7) Alcoholic pancreatitis (8) Pancreatitis, acute (9) Alcohol abuse (10) Fatty liver (11) Tobacco use (12) Blood loss anemia (13) Pneumonia Respiratory: monitor respiratory rate, adjust FIO2, other - Pulm hygiene, HHN's Cardiac: continue to monitor HR/BP Renal: check electrolytes, other - Off fluids, getting TPN Infectious Disease: check cultures - and C diff, continue antibiotics - zosyn, other - ID eval, consider CT CAP Gastrointestinal: other - NPO, TPN, GI, surg recs, ? 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, surger Discussed with: nurses, consultants Critical Care - Objective Last 24 Hour Vital Signs Date Time Temp Pulse Resp B/P (MAP) Pulse Ox O2 Delivery O2 Flow Rate FiO2 07/18/18 10:00 102 24 124/71 99 Venturi Mask 45 07/18/18 09:00 113 24 122/68 99 Venturi Mask 45 07/18/18 08:11 115 131/77 07/18/18 08:11 115 131/77 07/18/18 08:00 113 07/18/18 08:00 Venturi Mask 8.0 Venturi Mask 07/18/18 08:00 100.0 117 24 131/77 97 Venturi Mask 45 07/18/18 07:19 115 24 127/73 99 Venturi Mask 45 07/18/18 07:03 115 23 100 Venturi Mask 10.0 45 07/18/18 07:00 115 24 127/73 99 Venturi Mask 45 07/18/18 06:53 108 26 98 Venturi Mask 10.0 45 07/18/18 06:00 107 25 140/80 99 Venturi Mask 45 07/18/18 05:00 106 23 100 Venturi Mask 45 07/18/18 04:00 109 07/18/18 04:00 99.1 109 31 139/84 100 Venturi Mask 45 07/18/18 04:00 Venturi Mask 8.0 Venturi Mask 07/18/18 03:00 108 24 120/74 99 Venturi Mask 45 07/18/18 02:30 111 22 139/76 99 Venturi Mask 45 07/18/18 02:00 109 23 131/75 98 Venturi Mask 45 07/18/18 01:26 108 23 99 Venturi Mask 10.0 45 07/18/18 01:13 107 24 99 Venturi Mask 10.0 45 07/18/18 01:00 110 25 141/75 100 Venturi Mask 45 07/18/18 00:00 106 07/18/18 00:00 99.4 106 25 121/74 99 Venturi Mask 45 07/18/18 00:00 Venturi Mask 8.0 Venturi Mask 07/17/18 23:00 114 22 139/76 97 Venturi Mask 45 07/17/18 22:00 112 21 147/80 99 Venturi Mask 45 07/17/18 21:00 112 27 134/74 97 Venturi Mask 45 07/17/18 20:35 140/72 07/17/18 20:00 100.3 117 21 141/73 98 Venturi Mask 45 07/17/18 20:00 117 07/17/18 20:00 Venturi Mask 8.0 Venturi Mask 07/17/18 19:27 112 20 100 Venturi Mask 10.0 45 07/17/18 19:13 107 28 Venturi Mask 10.0 45 07/17/18 19:13 107 28 Venturi Mask 10.0 45 07/17/18 19:13 107 28 99 Venturi Mask 10.0 45 07/17/18 19:00 105 20 140/71 100 Venturi Mask 45 07/17/18 18:00 108 26 131/82 96 Venturi Mask 45 07/17/18 17:00 108 29 129/76 97 Venturi Mask 45 07/17/18 16:00 108 07/17/18 16:00 100.0 109 27 137/80 96 Venturi Mask 45 07/17/18 16:00 Venturi Mask 8.0 Venturi Mask 07/17/18 15:00 111 24 141/80 96 Venturi Mask 45 07/17/18 14:00 104 21 128/74 97 Venturi Mask 45 07/17/18 13:00 101.0 111 34 148/79 96 Venturi Mask 45 Status: obtunded Condition: critical HEENT: atraumatic, normocephalic Lungs: rhonchi Heart: HR/BP stable Abdomen: soft, non-tender, high residual - dressed JUNE Extremities: no C/C/E Accucheck: 120 Blood Sugars: BS controlled Critical Care - Subjective ROS Limited/Unobtainable: Yes ICU Day: 7 Intubation Day: VM Interval Events: TM 100 CT NAD WCt inc AMMONIA elevated lethargic but arousable Condition: critical IV Access: PICC EKG Rhythm: Sinus Tachycardia FI02: 45 Vent Support Breath Rate: 14 Vent Support Mode: CPAP Vent Tidal Volume: 500 Sputum Amount: None PEEP: 5.0 PIP: 15 Secretions: None Fluids: TPN o/w SLIV Drips: N/A Tube Feeding Amount: 20 I&O: Intake and Output 07/17/18 07/18/18 19:00 07:00 Intake Total 1408.0 ml 1023.0 ml Output Total 1320 ml 1180 ml Balance 88.0 ml -157.0 ml IV Total 1408.0 ml 1023.0 ml Output Urine Total 1300 ml 1120 ml Drainage Total 20 ml 60 ml # Bowel Movements 2 Subjective: KEO ET-Tube: 8.0 ET Position: 24 Labs: Laboratory Tests Test 07/17/18 15:27 07/17/18 16:08 07/18/18 05:00 Arterial Blood pH 7.504 (7.350-7.450) Arterial Blood Partial Pressure CO2 29.1 mmHg (35.0-45.0) L Arterial Blood Partial Pressure O2 55.6 mmHg (75.0-100.0) L Arterial Blood HCO3 22.4 mmol/L (22.0-26.0) Arterial Blood Oxygen Saturation 90.4 % (95-100) L Arterial Blood Base Excess 0.1 (-2-2) Michael Test Positive Ammonia 89 umol/L (11-32) H White Blood Count 23.6 K/UL (4.8-10.8) *H Red Blood Count 3.23 M/UL (4.70-6.10) L Hemoglobin 11.5 G/DL (14.2-18.0) L Hematocrit 33.0 % (42.0-52.0) L Mean Corpuscular Volume 102 FL (80-99) H Mean Corpuscular Hemoglobin 35.5 PG (27.0-31.0) H Mean Corpuscular Hemoglobin Concent 34.8 G/DL (32.0-36.0) Red Cell Distribution Width 13.9 % (11.6-14.8) Platelet Count 754 K/UL (150-450) H Mean Platelet Volume 6.0 FL (6.5-10.1) L Neutrophils (%) (Auto) % (45.0-75.0) Lymphocytes (%) (Auto) % (20.0-45.0) Monocytes (%) (Auto) % (1.0-10.0) Eosinophils (%) (Auto) % (0.0-3.0) Basophils (%) (Auto) % (0.0-2.0) Differential Total Cells Counted 100 Neutrophils % (Manual) 91 % (45-75) H Lymphocytes % (Manual) 6 % (20-45) L Monocytes % (Manual) 3 % (1-10) Eosinophils % (Manual) 0 % (0-3) Basophils % (Manual) 0 % (0-2) Band Neutrophils 0 % (0-8) Platelet Estimate Increased H Platelet Morphology Normal Polychromasia 1+ Macrocytosis 1+ Sodium Level 134 MMOL/L (136-145) L Potassium Level 3.9 MMOL/L (3.5-5.1) Chloride Level 102 MMOL/L (98-107) Carbon Dioxide Level 21 MMOL/L (21-32) Anion Gap 11 mmol/L (5-15) Blood Urea Nitrogen 7 mg/dL (7-18) Creatinine 0.8 MG/DL (0.55-1.30) Estimat Glomerular Filtration Rate > 60 mL/min (>60) Glucose Level 118 MG/DL (74-106) H Calcium Level 8.7 MG/DL (8.5-10.1) Total Bilirubin 0.6 MG/DL (0.2-1.0) Aspartate Amino Transf (AST/SGOT) 61 U/L (15-37) H Alanine Aminotransferase (ALT/SGPT) 53 U/L (12-78) Alkaline Phosphatase 85 U/L (46-116) Total Protein 7.7 G/DL (6.4-8.2) Albumin 1.9 G/DL (3.4-5.0) L Globulin 5.8 g/dL Albumin/Globulin Ratio 0.3 (1.0-2.7) L Lipase 1676 U/L (73-393) H Trenton Ladd MD Jul 18, 2018 12:34
--- NOTE | 2018-07-18 12:48 | General Progress Note ---
Assessment/Plan Assessment/Plan Anemia of chronic disease (or of iron deficiency) due to underlying chronic medical issues, multifactorial --> Anemia workup has been ordered --> No evidence of hemolysis is noted, peripheral smear has been reviewed. --> Hgb goal >7. Transfuse prn. --> Epogen or iron at this time is not particularly indicated --> Medications have been reviewed # Thrombocytopenia is likely related to underlying reactive processs from pancreatitis, acute, as well as alcoholic intoxication and myelosuppression --> also patient has a history of hepatitis C from prior admission --> smear has been reviewed --> heparin sq is okay if needed for dvt ppx # Erythrocytosis is likely related to dehydration --> hgb goal >7, no evidence of bleeding currently --> given ivf already # Leukocytosis no e/o annie infection --> could be due to reactive process v cholecystitis --> wbc trend: 22-->18-->16-->14 --> peripheral smear has been reviewed --> ercp tomorrow per surg/gi # Pancreatitis with alcohol abuse --> recommend etoh cessation --> amylase and lipase prn -->Status post ERCP with sphincterotomy # Transaminitis --> likely related to etoh abuse --> in past seen by gi # Alcohol abuse -- recommend cessation The timing of this note does not necessarily reflect the time of the patient was seen Greatly appreciate consultation! Subjective Constitutional: Denies: no symptoms, chills, diaphoresis, fever, malaise, weakness, other HEENT: Denies: no symptoms, eye pain, blurred vision, tearing, double vision, ear pain, ear discharge, nose pain, nose congestion, throat pain, throat swelling, mouth pain, mouth swelling, other Cardiovascular: Denies: no symptoms, chest pain, edema, irregular heart rate, lightheadedness, palpitations, syncope, other Respiratory: Denies: no symptoms, cough, orthopnea, shortness of breath, SOB with excertion, SOB at rest, sputum, stridor, wheezing, other Gastrointestinal/Abdominal: Denies: no symptoms, abdomen distended, abdominal pain, black stools, tarry stools, blood in stool, constipated, diarrhea, difficulty swallowing, nausea, poor appetite, poor fluid intake, rectal bleeding , vomiting, other Genitourinary: Denies: no symptoms, burning, discharge, frequency, flank pain, hematuria, incontinence, pain, urgency, other Neurologic/Psychiatric: Denies: no symptoms, anxiety, depressed, emotional problems, headache, numbness, paresthesia, pre-existing deficit, seizure, tingling, tremors, weakness, other Endocrine: Denies: no symptoms, excessive sweating, flushing, intolerance to cold, intolerance to heat, increased hunger, increased thirst, increased urine, unexplained weight gain, unexplained weight loss, other Hematologic/Lymphatic: Denies: no symptoms, anemia, easy bleeding, easy bruising, other Allergies: Coded Allergies: No Known Allergies (Unverified , 06/01/16) Subjective 07/05: bp was high today and dc was cancelled until tomorow, on librium 07/06: wbc was high though other counts are better, no f/c 07/10: seen by bedside, heart rate increased, appears agitated, wbc 13.9 07/11: to get ercp tomorrow, surgery and gi following 07/12 ercp, sphincterotomy, stent placement surgery done today, currently having tremors and tachy. wbc 15.9, hgb 14, plt 429 07/13: Pt is intubated, seen by bedside,wbc 22, on abx, no acute distress 07/14: awake and comfortable, still intubated on vent, labs noted hb trending down, wbc 18, hgb 8. 07/16: seen by bedside, awake, comfortable, wbc 14, hgb 9, plt 613 07/17: awake, comfortable, status post ERCP with sphincterotomy wbc 21, hgb 10, plt 689. 07/18; seen by bedside, awake comfortable, on venturi mask, wbc 23, plt 754. Objective Last 24 Hour Vital Signs Date Time Temp Pulse Resp B/P (MAP) Pulse Ox O2 Delivery O2 Flow Rate FiO2 07/18/18 12:44 105 24 97 Venturi Mask 10.0 45 07/18/18 10:00 102 24 124/71 99 Venturi Mask 45 07/18/18 09:00 113 24 122/68 99 Venturi Mask 45 07/18/18 08:11 115 131/77 07/18/18 08:11 115 131/77 07/18/18 08:00 113 07/18/18 08:00 Venturi Mask 8.0 Venturi Mask 07/18/18 08:00 100.0 117 24 131/77 97 Venturi Mask 45 07/18/18 07:19 115 24 127/73 99 Venturi Mask 45 07/18/18 07:03 115 23 100 Venturi Mask 10.0 45 07/18/18 07:00 115 24 127/73 99 Venturi Mask 45 07/18/18 06:53 108 26 98 Venturi Mask 10.0 45 07/18/18 06:00 107 25 140/80 99 Venturi Mask 45 07/18/18 05:00 106 23 100 Venturi Mask 45 07/18/18 04:00 109 07/18/18 04:00 99.1 109 31 139/84 100 Venturi Mask 45 07/18/18 04:00 Venturi Mask 8.0 Venturi Mask 07/18/18 03:00 108 24 120/74 99 Venturi Mask 45 07/18/18 02:30 111 22 139/76 99 Venturi Mask 45 07/18/18 02:00 109 23 131/75 98 Venturi Mask 45 07/18/18 01:26 108 23 99 Venturi Mask 10.0 45 07/18/18 01:13 107 24 99 Venturi Mask 10.0 45 07/18/18 01:00 110 25 141/75 100 Venturi Mask 45 07/18/18 00:00 106 07/18/18 00:00 99.4 106 25 121/74 99 Venturi Mask 45 07/18/18 00:00 Venturi Mask 8.0 Venturi Mask 07/17/18 23:00 114 22 139/76 97 Venturi Mask 45 07/17/18 22:00 112 21 147/80 99 Venturi Mask 45 07/17/18 21:00 112 27 134/74 97 Venturi Mask 45 07/17/18 20:35 140/72 07/17/18 20:00 100.3 117 21 141/73 98 Venturi Mask 45 07/17/18 20:00 117 07/17/18 20:00 Venturi Mask 8.0 Venturi Mask 07/17/18 19:27 112 20 100 Venturi Mask 10.0 45 07/17/18 19:13 107 28 Venturi Mask 10.0 45 07/17/18 19:13 107 28 Venturi Mask 10.0 45 07/17/18 19:13 107 28 99 Venturi Mask 10.0 45 07/17/18 19:00 105 20 140/71 100 Venturi Mask 45 07/17/18 18:00 108 26 131/82 96 Venturi Mask 45 07/17/18 17:00 108 29 129/76 97 Venturi Mask 45 07/17/18 16:00 108 07/17/18 16:00 100.0 109 27 137/80 96 Venturi Mask 45 07/17/18 16:00 Venturi Mask 8.0 Venturi Mask 07/17/18 15:00 111 24 141/80 96 Venturi Mask 45 07/17/18 14:00 104 21 128/74 97 Venturi Mask 45 07/17/18 13:00 101.0 111 34 148/79 96 Venturi Mask 45 Intake and Output 07/17/18 07/18/18 19:00 07:00 Intake Total 1408.0 ml 1023.0 ml Output Total 1320 ml 1180 ml Balance 88.0 ml -157.0 ml IV Total 1408.0 ml 1023.0 ml Output Urine Total 1300 ml 1120 ml Drainage Total 20 ml 60 ml # Bowel Movements 2 Laboratory Tests 07/17/18 15:27: Arterial Blood pH 7.504H, Arterial Blood Partial Pressure CO2 29.1L, Arterial Blood Partial Pressure O2 55.6L, Arterial Blood HCO3 22.4, Arterial Blood Oxygen Saturation 90.4L, Arterial Blood Base Excess 0.1, Michael Test Positive 07/17/18 16:08: Ammonia 89H 07/18/18 05:00: White Blood Count 23.6*H, Red Blood Count 3.23L, Hemoglobin 11.5L, Hematocrit 33.0L, Mean Corpuscular Volume 102H, Mean Corpuscular Hemoglobin 35.5H, Mean Corpuscular Hemoglobin Concent 34.8, Red Cell Distribution Width 13.9, Platelet Count 754H, Mean Platelet Volume 6.0L, Neutrophils (%) (Auto) , Lymphocytes (%) (Auto) , Monocytes (%) (Auto) , Eosinophils (%) (Auto) , Basophils (%) (Auto) , Differential Total Cells Counted 100, Neutrophils % (Manual) 91H, Lymphocytes % (Manual) 6L, Monocytes % (Manual) 3, Eosinophils % (Manual) 0, Basophils % ( Manual) 0, Band Neutrophils 0, Platelet Estimate IncreasedH, Platelet Morphology Normal, Polychromasia 1+, Macrocytosis 1+, Sodium Level 134L, Potassium Level 3.9, Chloride Level 102, Carbon Dioxide Level 21, Anion Gap 11, Blood Urea Nitrogen 7, Creatinine 0.8, Estimat Glomerular Filtration Rate > 60, Glucose Level 118H, Calcium Level 8.7, Total Bilirubin 0.6, Aspartate Amino Transf (AST/SGOT) 61H, Alanine Aminotransferase (ALT/SGPT) 53, Alkaline Phosphatase 85, Total Protein 7.7, Albumin 1.9L, Globulin 5.8, Albumin/Globulin Ratio 0.3L, Lipase 1676H Height (Feet): 5 Height (Inches): 9.00 Weight (Pounds): 160 Objective Physical Exam General Appearance: A+O x3, NAD HEENT: normocephalic, atraumatic Neck: non-tender, normal alignment Respiratory/Chest: chest wall non-tender, lungs clear Cardiovascular/Chest: normal peripheral pulses, normal rate Abdomen: normal bowel sounds, non tender Extremities: normal range of motion Guy Salazar MD Jul 18, 2018 12:48
[2018-07-18] MEDS: Lactulose 20gm/30ml UDC ORAL SCH ×2 (13:00→18:00)
[2018-07-18] MEDS ORDERED: Vancomycin 1250mg/D5W 250ml IVPB SCH ×2 (13:30→17:30)
--- NOTE | 2018-07-18 14:00 | NUR ---
NURSE NOTES: Pt noted with large BM. Sponge bath rendered. Pt continues to rest. ST to CM with HR 105bpm. NAD noted. Falling precautions observed.
--- NOTE | 2018-07-18 14:56 | GI Progress Note ---
Assessment/Plan Problems: (1) Abnormal LFTs ICD Codes: R79.89 - Other specified abnormal findings of blood chemistry SNOMED: 694152297 (2) Cholecystitis, acute ICD Codes: K81.0 - Acute cholecystitis SNOMED: 39183284 (3) Hepatitis C ICD Codes: B19.20 - Unspecified viral hepatitis C without hepatic coma SNOMED: 85287021 (4) Fatty liver ICD Codes: K76.0 - Fatty (change of) liver, not elsewhere classified SNOMED: 050600388 (5) Alcoholic pancreatitis ICD Codes: K85.20 - Alcohol induced acute pancreatitis without necrosis or infection SNOMED: 896028818 (6) Pancreatitis, acute ICD Codes: K85.90 - Acute pancreatitis without necrosis or infection, unspecified SNOMED: 654769857 Status: unchanged Status Narrative Discussed with Dr. Yip. Assessment/Plan SUMMARY OF FINDINGS: 1. 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 2. Status post ERCP with sphincterotomy, balloon assistance sludge and some pus extraction from the common bile duct and then stent placement. s/p open jocelyn, now in ICU with pancreatitis hepatitis C positive RECOMMENDATIONS: follow up surgical recommendations TPN prn transfusions trend lipase fu labs The patient will need repeat ERCP in 6 to 8 weeks for stent removal. outpatient Hep C tx The patient was seen and examined at bedside and all new and available data was reviewed in the patients chart. I agree with the above findings, impression and plan. (Patient seen earlier today. Signature stamp does not reflect patient encounter time.). - Toñito Yip MD Subjective Subjective limited Objective Last 24 Hour Vital Signs Date Time Temp Pulse Resp B/P (MAP) Pulse Ox O2 Delivery O2 Flow Rate FiO2 07/18/18 13:00 112 28 119/68 98 Venturi Mask 45 07/18/18 12:44 105 24 97 Venturi Mask 10.0 45 07/18/18 12:22 105 28 126/82 98 Venturi Mask 45 07/18/18 12:00 Venturi Mask 8.0 Venturi Mask 07/18/18 12:00 99 07/18/18 12:00 99.3 99 28 127/75 98 Venturi Mask 45 07/18/18 11:00 105 28 126/82 98 Venturi Mask 45 07/18/18 10:00 102 24 124/71 99 Venturi Mask 45 07/18/18 09:00 113 24 122/68 99 Venturi Mask 45 07/18/18 08:11 115 131/77 07/18/18 08:11 115 131/77 07/18/18 08:00 113 07/18/18 08:00 Venturi Mask 8.0 Venturi Mask 07/18/18 08:00 100.0 117 24 131/77 97 Venturi Mask 45 07/18/18 07:19 115 24 127/73 99 Venturi Mask 45 07/18/18 07:03 115 23 100 Venturi Mask 10.0 45 07/18/18 07:00 115 24 127/73 99 Venturi Mask 45 07/18/18 06:53 108 26 98 Venturi Mask 10.0 45 07/18/18 06:00 107 25 140/80 99 Venturi Mask 45 07/18/18 05:00 106 23 100 Venturi Mask 45 07/18/18 04:00 109 07/18/18 04:00 99.1 109 31 139/84 100 Venturi Mask 45 07/18/18 04:00 Venturi Mask 8.0 Venturi Mask 07/18/18 03:00 108 24 120/74 99 Venturi Mask 45 07/18/18 02:30 111 22 139/76 99 Venturi Mask 45 07/18/18 02:00 109 23 131/75 98 Venturi Mask 45 07/18/18 01:26 108 23 99 Venturi Mask 10.0 45 07/18/18 01:13 107 24 99 Venturi Mask 10.0 45 07/18/18 01:00 110 25 141/75 100 Venturi Mask 45 07/18/18 00:00 106 07/18/18 00:00 99.4 106 25 121/74 99 Venturi Mask 45 07/18/18 00:00 Venturi Mask 8.0 Venturi Mask 07/17/18 23:00 114 22 139/76 97 Venturi Mask 45 07/17/18 22:00 112 21 147/80 99 Venturi Mask 45 07/17/18 21:00 112 27 134/74 97 Venturi Mask 45 07/17/18 20:35 140/72 07/17/18 20:00 100.3 117 21 141/73 98 Venturi Mask 45 07/17/18 20:00 117 07/17/18 20:00 Venturi Mask 8.0 Venturi Mask 07/17/18 19:27 112 20 100 Venturi Mask 10.0 45 07/17/18 19:13 107 28 Venturi Mask 10.0 45 07/17/18 19:13 107 28 Venturi Mask 10.0 45 07/17/18 19:13 107 28 99 Venturi Mask 10.0 45 07/17/18 19:00 105 20 140/71 100 Venturi Mask 45 07/17/18 18:00 108 26 131/82 96 Venturi Mask 45 07/17/18 17:00 108 29 129/76 97 Venturi Mask 45 07/17/18 16:00 108 07/17/18 16:00 100.0 109 27 137/80 96 Venturi Mask 45 07/17/18 16:00 Venturi Mask 8.0 Venturi Mask 07/17/18 15:00 111 24 141/80 96 Venturi Mask 45 Intake and Output 07/17/18 07/18/18 19:00 07:00 Intake Total 1408.0 ml 1023.0 ml Output Total 1320 ml 1180 ml Balance 88.0 ml -157.0 ml IV Total 1408.0 ml 1023.0 ml Output Urine Total 1300 ml 1120 ml Drainage Total 20 ml 60 ml # Bowel Movements 2 Laboratory Tests Test 07/17/18 15:27 07/17/18 16:08 07/18/18 05:00 Arterial Blood pH 7.504 (7.350-7.450) Arterial Blood Partial Pressure CO2 29.1 mmHg (35.0-45.0) L Arterial Blood Partial Pressure O2 55.6 mmHg (75.0-100.0) L Arterial Blood HCO3 22.4 mmol/L (22.0-26.0) Arterial Blood Oxygen Saturation 90.4 % (95-100) L Arterial Blood Base Excess 0.1 (-2-2) Michael Test Positive Ammonia 89 umol/L (11-32) H White Blood Count 23.6 K/UL (4.8-10.8) *H Red Blood Count 3.23 M/UL (4.70-6.10) L Hemoglobin 11.5 G/DL (14.2-18.0) L Hematocrit 33.0 % (42.0-52.0) L Mean Corpuscular Volume 102 FL (80-99) H Mean Corpuscular Hemoglobin 35.5 PG (27.0-31.0) H Mean Corpuscular Hemoglobin Concent 34.8 G/DL (32.0-36.0) Red Cell Distribution Width 13.9 % (11.6-14.8) Platelet Count 754 K/UL (150-450) H Mean Platelet Volume 6.0 FL (6.5-10.1) L Neutrophils (%) (Auto) % (45.0-75.0) Lymphocytes (%) (Auto) % (20.0-45.0) Monocytes (%) (Auto) % (1.0-10.0) Eosinophils (%) (Auto) % (0.0-3.0) Basophils (%) (Auto) % (0.0-2.0) Differential Total Cells Counted 100 Neutrophils % (Manual) 91 % (45-75) H Lymphocytes % (Manual) 6 % (20-45) L Monocytes % (Manual) 3 % (1-10) Eosinophils % (Manual) 0 % (0-3) Basophils % (Manual) 0 % (0-2) Band Neutrophils 0 % (0-8) Platelet Estimate Increased H Platelet Morphology Normal Polychromasia 1+ Macrocytosis 1+ Sodium Level 134 MMOL/L (136-145) L Potassium Level 3.9 MMOL/L (3.5-5.1) Chloride Level 102 MMOL/L (98-107) Carbon Dioxide Level 21 MMOL/L (21-32) Anion Gap 11 mmol/L (5-15) Blood Urea Nitrogen 7 mg/dL (7-18) Creatinine 0.8 MG/DL (0.55-1.30) Estimat Glomerular Filtration Rate > 60 mL/min (>60) Glucose Level 118 MG/DL (74-106) H Calcium Level 8.7 MG/DL (8.5-10.1) Total Bilirubin 0.6 MG/DL (0.2-1.0) Aspartate Amino Transf (AST/SGOT) 61 U/L (15-37) H Alanine Aminotransferase (ALT/SGPT) 53 U/L (12-78) Alkaline Phosphatase 85 U/L (46-116) Total Protein 7.7 G/DL (6.4-8.2) Albumin 1.9 G/DL (3.4-5.0) L Globulin 5.8 g/dL Albumin/Globulin Ratio 0.3 (1.0-2.7) L Lipase 1676 U/L (73-393) H Height (Feet): 5 Height (Inches): 9.00 Weight (Pounds): 160 General Appearance: no apparent distress Cardiovascular: normal rate Respiratory/Chest: normal breath sounds, no respiratory distress Abdominal Exam: normal bowel sounds, non tender, soft Extremities: non-tender Sonja Neely NP Jul 18, 2018 14:56
--- NOTE | 2018-07-18 15:31 | Infectious Diseases Prog Note ---
Assessment/Plan Assessment/Plan Full consult dictated: A) 1) sepsis, leukocytosis, fevers 2) klebsiella gangrenous cholecystitis - s/p cholecystectomy 3) possible pna 4) fungemia risk - TPN P) 1) vancomycin, meropenem, diflucan 2) check cultures, labs and chest x-ray 3) orders entered 4) thank you Subjective Allergies: Coded Allergies: No Known Allergies (Unverified , 06/01/16) Objective Vital Signs Last 24 Hour Vital Signs Date Time Temp Pulse Resp B/P (MAP) Pulse Ox O2 Delivery O2 Flow Rate FiO2 07/18/18 13:00 112 28 119/68 98 Venturi Mask 45 07/18/18 12:44 105 24 97 Venturi Mask 10.0 45 07/18/18 12:22 105 28 126/82 98 Venturi Mask 45 07/18/18 12:00 Venturi Mask 8.0 Venturi Mask 07/18/18 12:00 99 07/18/18 12:00 99.3 99 28 127/75 98 Venturi Mask 45 07/18/18 11:00 105 28 126/82 98 Venturi Mask 45 07/18/18 10:00 102 24 124/71 99 Venturi Mask 45 07/18/18 09:00 113 24 122/68 99 Venturi Mask 45 07/18/18 08:11 115 131/77 07/18/18 08:11 115 131/77 07/18/18 08:00 113 07/18/18 08:00 Venturi Mask 8.0 Venturi Mask 07/18/18 08:00 100.0 117 24 131/77 97 Venturi Mask 45 07/18/18 07:19 115 24 127/73 99 Venturi Mask 45 07/18/18 07:03 115 23 100 Venturi Mask 10.0 45 07/18/18 07:00 115 24 127/73 99 Venturi Mask 45 07/18/18 06:53 108 26 98 Venturi Mask 10.0 45 07/18/18 06:00 107 25 140/80 99 Venturi Mask 45 07/18/18 05:00 106 23 100 Venturi Mask 45 07/18/18 04:00 109 07/18/18 04:00 99.1 109 31 139/84 100 Venturi Mask 45 07/18/18 04:00 Venturi Mask 8.0 Venturi Mask 07/18/18 03:00 108 24 120/74 99 Venturi Mask 45 07/18/18 02:30 111 22 139/76 99 Venturi Mask 45 07/18/18 02:00 109 23 131/75 98 Venturi Mask 45 07/18/18 01:26 108 23 99 Venturi Mask 10.0 45 07/18/18 01:13 107 24 99 Venturi Mask 10.0 45 07/18/18 01:00 110 25 141/75 100 Venturi Mask 45 07/18/18 00:00 106 07/18/18 00:00 99.4 106 25 121/74 99 Venturi Mask 45 07/18/18 00:00 Venturi Mask 8.0 Venturi Mask 07/17/18 23:00 114 22 139/76 97 Venturi Mask 45 07/17/18 22:00 112 21 147/80 99 Venturi Mask 45 07/17/18 21:00 112 27 134/74 97 Venturi Mask 45 07/17/18 20:35 140/72 07/17/18 20:00 100.3 117 21 141/73 98 Venturi Mask 45 07/17/18 20:00 117 07/17/18 20:00 Venturi Mask 8.0 Venturi Mask 07/17/18 19:27 112 20 100 Venturi Mask 10.0 45 07/17/18 19:13 107 28 Venturi Mask 10.0 45 07/17/18 19:13 107 28 Venturi Mask 10.0 45 07/17/18 19:13 107 28 99 Venturi Mask 10.0 45 07/17/18 19:00 105 20 140/71 100 Venturi Mask 45 07/17/18 18:00 108 26 131/82 96 Venturi Mask 45 07/17/18 17:00 108 29 129/76 97 Venturi Mask 45 07/17/18 16:00 108 07/17/18 16:00 100.0 109 27 137/80 96 Venturi Mask 45 07/17/18 16:00 Venturi Mask 8.0 Venturi Mask Height (Feet): 5 Height (Inches): 9.00 Weight (Pounds): 160 Laboratory Tests Test 07/17/18 15:27 07/17/18 16:08 07/18/18 05:00 Arterial Blood pH 7.504 (7.350-7.450) Arterial Blood Partial Pressure CO2 29.1 mmHg (35.0-45.0) L Arterial Blood Partial Pressure O2 55.6 mmHg (75.0-100.0) L Arterial Blood HCO3 22.4 mmol/L (22.0-26.0) Arterial Blood Oxygen Saturation 90.4 % (95-100) L Arterial Blood Base Excess 0.1 (-2-2) Michael Test Positive Ammonia 89 umol/L (11-32) H White Blood Count 23.6 K/UL (4.8-10.8) *H Red Blood Count 3.23 M/UL (4.70-6.10) L Hemoglobin 11.5 G/DL (14.2-18.0) L Hematocrit 33.0 % (42.0-52.0) L Mean Corpuscular Volume 102 FL (80-99) H Mean Corpuscular Hemoglobin 35.5 PG (27.0-31.0) H Mean Corpuscular Hemoglobin Concent 34.8 G/DL (32.0-36.0) Red Cell Distribution Width 13.9 % (11.6-14.8) Platelet Count 754 K/UL (150-450) H Mean Platelet Volume 6.0 FL (6.5-10.1) L Neutrophils (%) (Auto) % (45.0-75.0) Lymphocytes (%) (Auto) % (20.0-45.0) Monocytes (%) (Auto) % (1.0-10.0) Eosinophils (%) (Auto) % (0.0-3.0) Basophils (%) (Auto) % (0.0-2.0) Differential Total Cells Counted 100 Neutrophils % (Manual) 91 % (45-75) H Lymphocytes % (Manual) 6 % (20-45) L Monocytes % (Manual) 3 % (1-10) Eosinophils % (Manual) 0 % (0-3) Basophils % (Manual) 0 % (0-2) Band Neutrophils 0 % (0-8) Platelet Estimate Increased H Platelet Morphology Normal Polychromasia 1+ Macrocytosis 1+ Sodium Level 134 MMOL/L (136-145) L Potassium Level 3.9 MMOL/L (3.5-5.1) Chloride Level 102 MMOL/L (98-107) Carbon Dioxide Level 21 MMOL/L (21-32) Anion Gap 11 mmol/L (5-15) Blood Urea Nitrogen 7 mg/dL (7-18) Creatinine 0.8 MG/DL (0.55-1.30) Estimat Glomerular Filtration Rate > 60 mL/min (>60) Glucose Level 118 MG/DL (74-106) H Calcium Level 8.7 MG/DL (8.5-10.1) Total Bilirubin 0.6 MG/DL (0.2-1.0) Aspartate Amino Transf (AST/SGOT) 61 U/L (15-37) H Alanine Aminotransferase (ALT/SGPT) 53 U/L (12-78) Alkaline Phosphatase 85 U/L (46-116) Total Protein 7.7 G/DL (6.4-8.2) Albumin 1.9 G/DL (3.4-5.0) L Globulin 5.8 g/dL Albumin/Globulin Ratio 0.3 (1.0-2.7) L Lipase 1676 U/L (73-393) H Current Medications Medications (Trade) Dose Ordered Sig/Mukesh Route PRN Reason Start Time Stop Time Status Last Admin Dose Admin Acetaminophen (Tylenol) 650 mg Q4H PRN RECTAL Prn for Temp >100.5 07/15/18 17:30 08/14/18 17:29 07/16/18 21:34 Al Hydroxide/Mg Hydroxide (Mylanta) 15 ml Q6H PRN ORAL DYSPEPSIA 07/13/18 03:00 08/11/18 20:59 Albuterol/ Ipratropium (Albuterol/ Ipratropium) 3 ml Q4H PRN HHN Shortness of Breath 07/15/18 11:45 07/20/18 11:44 Albuterol/ Ipratropium (Albuterol/ Ipratropium) 3 ml Q6HRT HHN 07/17/18 19:00 07/22/18 18:59 07/18/18 12:44 Amlodipine Besylate (Norvasc) 10 mg DAILY ORAL 07/13/18 09:00 08/04/18 13:48 07/18/18 08:11 Chlorhexidine Gluconate (Estrella-Hex 2%) 1 applic DAILY@2000 TOPIC 07/16/18 20:00 08/15/18 19:59 07/17/18 19:55 Clonidine HCl (Catapres Tab) 0.1 mg Q8H PRN ORAL hypertension 07/12/18 23:45 08/04/18 15:37 Dextrose (Dextrose 50%) 25 ml Q30M PRN IV Hypoglycemia 07/18/18 00:00 08/17/18 00:00 Dextrose (Dextrose 50%) 50 ml Q30M PRN IV hypoglycemia 07/18/18 00:00 08/17/18 00:00 Diphenhydramine HCl (Benadryl) 12.5 mg Q6H PRN IVP Itching/Pruritis 07/13/18 03:00 08/11/18 20:59 07/15/18 17:47 Docusate Sodium (Colace) 100 mg TWICE A DAY NG 07/14/18 09:00 08/12/18 08:59 07/18/18 08:10 Fat Emulsion Intravenous 192 ml/Amino Acids/ Electrolytes/ Dextrose 1,872 ml @ 78 mls/hr Q24H IV 07/17/18 20:00 08/16/18 19:59 07/17/18 20:24 Heparin Sodium (Porcine) (Heparin 5000 units/ml) 5,000 units Q12HR SUBQ 07/13/18 09:00 08/02/18 08:59 07/18/18 08:13 Hydromorphone HCl (Dilaudid) 0.5 mg Q3H PRN IVP Pain Score 1-3 07/13/18 00:00 07/19/18 20:59 07/14/18 02:39 Hydromorphone HCl (Dilaudid) 1 mg Q3H PRN IVP pain score 4-6 07/13/18 00:00 07/19/18 20:59 07/15/18 05:29 Hydromorphone HCl (Dilaudid) 2 mg Q3H PRN IVP pain score 7-10 07/13/18 00:00 07/19/18 20:59 07/17/18 02:19 Insulin Aspart (NovoLOG) No Dose Q6HR SUBQ 07/18/18 00:00 08/17/18 00:00 07/18/18 05:15 Lactulose (Cephulac) 30 gm THREE TIMES A DAY ORAL 07/18/18 13:00 08/17/18 12:59 Lorazepam (Ativan 2mg/ml 1ml) 1 mg Q1HR PRN IV For Anxiety 07/12/18 22:00 07/19/18 20:59 07/15/18 23:41 Magnesium Hydroxide (Mom) 30 ml BIDPRN PRN ORAL Constipation 07/13/18 21:00 08/11/18 20:59 Metoprolol Tartrate (Lopressor) 25 mg DAILY NG 07/14/18 20:30 08/13/18 20:29 07/18/18 08:11 Nicotine (Nicoderm) 1 patch Q24H TDERMAL 07/13/18 18:00 08/08/18 17:59 07/17/18 18:22 Norepinephrine Bitartrate 4 mg/ Dextrose 250 ml @ 0 mls/hr Q24H IV 07/13/18 21:00 08/11/18 20:59 Ondansetron HCl (Zofran) 4 mg Q6H PRN IVP Nausea & Vomiting 07/13/18 03:45 08/01/18 15:38 07/16/18 12:50 Pantoprazole (Protonix) 40 mg EVERY 12 HOURS IVP 07/13/18 09:00 08/09/18 20:59 07/18/18 08:10 Phytonadione (Vitamin K) 10 mg QWEEK SUBQ 07/24/18 20:00 08/23/18 19:59 Piperacillin Sod/ Tazobactam Sod 4.5 gm/Sodium Chloride 110 ml @ 27.5 mls/hr Q8H IVPB 07/13/18 13:00 07/20/18 12:59 07/18/18 05:02 Tyler Madsen MD Jul 18, 2018 15:31
--- NOTE | 2018-07-18 16:17 | General Progress Note ---
Progress Note Progress Note s/p open jocelyn gangrenous purulent cholecystitis drain with dark red output wound okay on face mask labs noted - leukocytosis worsening hb stable abd soft, non distended. likely hematoma in abdomen but wound anticipate much more distention or rigid if that much blood. he is responsive and does not have tenderness except at incision site. possible component can be resuscitation. wound kenneth removed from middle portion to let seroma drain. packing and dressing TID cont abx - appreciate ID input drain care [place] nAtonio Jul 18, 2018 16:17
--- NOTE | 2018-07-18 16:30 | NUR ---
NURSE NOTES: Pt resting in bed. RR even jeancarlos non labored. O2 sat 96% in 45% with venti make on. ST to CM with HR 110-118 bpm. NAD noted.
--- NOTE | 2018-07-18 17:40 | NUR ---
[employer] [facility] SI: RESP FAILURE S/P EXTUBATION T. 99.3 HR 116 RR 28 B/P 130/77 VM 45% WBC 23.6 AST [address]=NO ACUTE INTRACRANIAL BLEEDING OR MASS IS: VANCO IV TPN IV MEROPENEM IV ALB HHN HEPARIN SUBC ICU STATUS
--- NOTE | 2018-07-18 18:45 | Consultation ---
DATE OF CONSULTATION: 07/18/2018 INFECTIOUS DISEASE CONSULTATION CONSULTING PHYSICIAN: Tyler Madsen M.D. ATTENDING PHYSICIAN: Maxx Kinsey M.D. REFERRING PHYSICIAN: Eulogio Siddiqi M.D. REASON FOR CONSULTATION: Sepsis, Klebsiella cholecystitis, gangrenous cholecystitis, fevers, leukocytosis. CHIEF COMPLAINT: The patient's chief complaint coming into the hospital is pancreatitis. HISTORY OF PRESENT ILLNESS: This is a 62-year-old male who comes into [facility]. The patient presented with abdominal pain. The patient was diagnosed with pancreatitis. He has history of alcohol abuse. Workup showed, he had on the imaging studies including ultrasound of the abdomen showed cholelithiasis and CT scan of the abdomen and pelvis showed gallbladder distention, wall thickening and infiltration of pericholecystic fat. The patient's chest x-ray at that time was negative. The patient is status post open cholecystectomy and had a gangrenous gallbladder per surgery report. The patient has leukocytosis and fevers that is persistent and likely septic with SIRS criteria. The patient had the surgery on July 12, 2018. The patient is currently on Zosyn. I am going to change the patient to meropenem, vancomycin, and Diflucan. He is on TPN. He is at fungemia risk. MAR was noted. Orders were noted. Records were reviewed. The patient is in ICU on a breathing mask, short of breath. REVIEW OF SYSTEMS: GENERAL: He has generalized fatigue and weakness, not very responsive, open eyes. HEAD AND NECK: There is a breathing mask. CARDIAC: No pressors. GASTROINTESTINAL: No nausea, vomiting. Did come with abdominal pain. Currently, he has diarrhea but he is on lactulose. PULMONARY: He has congestion, short of breath. SKIN: No rash or itching. EXTREMITIES: No extremity pain. NEUROLOGIC: No seizures. Generalized fatigue and weakness. He does have fevers. No pressors at this time. PAST MEDICAL HISTORY: The patient's past medical history includes history of ETOH abuse, came in with abdominal pain, alcoholic pancreatitis, nausea, vomiting. History of tobacco use. No history of diabetes or hypertension mentioned. He is currently anemic also, has thrombocytopenia. ALLERGIES: No known drug allergies. SOCIAL HISTORY: ETOH abuse and smoking use. No history of intravenous drug abuse. FAMILY HISTORY: Noncontributory. MEDICATIONS: Upon reviewing the MAR, he is on the following. He is on vitamin K, lactulose, NovoLog insulin. He is on acetaminophen, albuterol, metoprolol, norepinephrine. Currently, he currently is not on pressors. He is on magnesium hydroxide, Zosyn, which was discontinued and placed on meropenem, vancomycin , and Diflucan. He is on Norvasc daily. He is on heparin, pantoprazole, Zofran, diphenhydramine, , hydromorphone, clonidine. Outside medications were noted and reconciled. PHYSICAL EXAMINATION: VITAL SIGNS: Pulse 112, respiratory rate 28, blood pressure 119/68, O2 saturation 98%, 45% venturi mask. T-max is 102.6. GENERAL: Alert, weak, opens eyes, but not a very good historian. Lethargic. HEAD AND NECK: Oral exam, no thrush. Eye exam, no icterus. Neck is supple. No JVD. Normocephalic. He is on breathing mask. HEART: Regular. No obvious gallop or murmur. ABDOMEN: Soft. Positive bowel sounds. Nontender. LUNGS: Bilateral rhonchi, rales, and crackles. SKIN: No rash. MUSCULOSKELETAL: No effusion. Legs are without cellulitis. PERIPHERAL VASCULAR: No cyanosis or gangrene. GENITOURINARY: He has a Serrano. Urine is slightly cloudy. LINE SITES: Without phlebitis. NEUROLOGIC: Generalized weakness and poorly responsive. LABORATORY DATA: Creatinine is 0.8. White count 23.6, hemoglobin 11.5, platelet count 754. I have ordered cultures and urinalysis. IMAGING STUDIES: Initial chest x-ray was negative. Initial CT scan showed gallbladder distention, wall thickening and infiltration of pericholecystic fat. Ultrasound showed cholelithiasis. Abdominal MRI showed cholelithiasis, gallbladder wall thickening and edema. Chest x-ray of most recently showed right lower lobe opacity and effusion. Cultures have been ordered. ASSESSMENT AND PLAN: 1. The patient is septic, elevated white count, fevers, SIRS criteria. The patient has a Klebsiella gangrenous cholecystitis status post cholecystectomy, had open cholecystectomy. Culture grew out Klebsiella. The patient likely also polymicrobial infection with anaerobes. The patient has possible aspiration health-acquired pneumonia. The patient has high risk for fungemia with TPN and antibiotics, critical clinical critical status. Continue vancomycin and meropenem and Diflucan to cover sepsis, Klebsiella gangrenous cholecystitis, possible pneumonia and fungemia. Continue antibiotics. Check cultures. This patient may need repeat imaging of the abdomen to rule out any underlying postoperative abscess if leukocytosis and fevers persist. Continue meropenem, Diflucan and vancomycin for now. Pending workup. 2. ETOH abuse. 3. Smoking use. 4. Anemia. 5. Thrombocytosis. 6. No history of diabetes, hypertension, but he is on Norvasc. 7. No known allergies. 8. Social history positive for smoking and alcohol use. No history of intravenous drug abuse. 9. MAR was noted. 10. Case discussed with RN. 11. Continue treatment per primary consultants. 12. Case discussed at length the ICU nurse, the patient currently in ICU. 13. Continue skin care protocol and pulmonary treatments for now. Tyler Madsen M.D. DR: Giacomo JOB#: [id number] CC:
--- NOTE | 2018-07-18 19:07 | NUR ---
HAND-OFF: Report given to Zuri HERRERA for continuity of care. All questions answered. NAD noted.
--- NOTE | 2018-07-18 19:10 | NUR ---
NURSE NOTES: Report received from JAVIER Ray. Pt A/Ox2-3. playground monitor shows SR. Pt currently on venturi mask @ 45% FiO2, 8L. Pt has a melchor catheter in place, patent and draining well. A RLQ gonzales baldwin drain is present and draining appropriately. RUQ open incision present and packed with gauze. Multiple blisters present and covered with optifoam, and a lower abdominal wound is stapled, clean and VIVIANE. Pt has a LUADL PICC with TPN running @ 78 ml/hr. Bed in lowest position, call light within reach, bed alarms placed. Will continue to monitor and with patients plan of care.
--- NOTE | 2018-07-18 20:05 | NUR ---
NURSE NOTES: Pt has elevated temperature of 101.9. Tylenol administered. Cooling measures provided. Will recheck temperature in one hour.
[2018-07-18] MEDS: FAT EMULSION 20% IV SCH (20:10)
[2018-07-18] MEDS: Dyna-Hex 2% Top Sol 2oz TOPIC SCH (20:10)
[2018-07-18] MEDS: TPN IV SCH (20:10)
[2018-07-18] MEDS: Acetaminophen 650 MG SUPP RECTAL PRN (20:11)
[2018-07-18] MEDS: Vancomycin 1250mg/D5W 250ml IVPB SCH (20:11)
--- NOTE | 2018-07-18 21:00 | NUR ---
NURSE NOTES: Temperature mora to 102.1. Further cooling measures provided. Will continue to monitor.
--- NOTE | 2018-07-18 22:00 | NUR ---
NURSE NOTES: Pts temperature controlled to 99.1. Pt repositioned and needs were mets. VSS. Shows no signs of acute distress. Will continue to monitor and with pt's plan of care
--- NOTE | 2018-07-18 22:30 | NUR ---
NURSE NOTES: Pt's HR increased to 155. Slightly agitated, difficult to comfort. Ativan administered.
[2018-07-18] MEDS: LORazepam Inj 2mg/ml 1ml IV PRN (22:35)
[2018-07-19] VITALS (19 sets, daily range): BP systolic 106–128; BP diastolic 67–80
--- NOTE | 2018-07-19 00:30 | NUR ---
NURSE NOTES: Pt resting comfortably. All needs have been met. Pt repositioned. No signs of acute distress. VSS. Will continue to monitor.
[2018-07-19] MEDS: Albuterol/Ipratropium 3ml neb HHN SCH ×4 (00:42→20:30)
--- NOTE | 2018-07-19 02:30 | NUR ---
NURSE NOTES: Pt awake and alert. Repositioned. VSS. Will continue to monitor.
--- NOTE | 2018-07-19 04:30 | NUR ---
NURSE NOTES: Pt repositioned and sleeping comfortably. VSS. Will continue to monitor
[2018-07-19 05:27] LABS: HEMATOCRIT 32.2 % (42.0-52.0); HEMOGLOBIN 11.1 G/DL (14.2-18.0); MEAN CORPUSCULAR VOLUME 102 FL (80-99); PLATELET COUNT 692 K/UL (150-450); RED BLOOD COUNT 3.18 M/UL (4.70-6.10); WHITE BLOOD COUNT 21.8 K/UL (4.8-10.8)
[2018-07-19 05:40] LABS: INR 1.1 (0.9-1.1)
[2018-07-19] MEDS: Insulin NovoLOG Flexpen S/S (Mod) SUBQ SCH ×3 (05:59→18:00)
[2018-07-19 06:11] LABS: ALANINE AMINOTRANSFERASE 52 U/L (12-78); ALBUMIN 1.9 G/DL (3.4-5.0); ALBUMIN/GLOBULIN RATIO 0.3 (1.0-2.7); ALKALINE PHOSPHATASE 75 U/L (46-116); ANION GAP 10 mmol/L (5-15); ASPARTATE AMINO TRANSFERASE 60 U/L (15-37); BILIRUBIN,TOTAL 0.4 MG/DL (0.2-1.0); BLOOD UREA NITROGEN 12 mg/dL (7-18); CALCIUM 8.4 MG/DL (8.5-10.1); CARBON DIOXIDE 25 MMOL/L (21-32); CHLORIDE 107 MMOL/L (98-107); CREATININE 0.8 MG/DL (0.55-1.30); POTASSIUM 3.6 MMOL/L (3.5-5.1); SODIUM 142 MMOL/L (136-145)
--- NOTE | 2018-07-19 06:30 | NUR ---
NURSE NOTES: Pt cleaned after bowel movement, repositioned. VSS. In no acute distress. at bedside.
--- NOTE | 2018-07-19 07:45 | NUR ---
NURSE NOTES: Received patient from JAVIER Keating. Patient is asleep, easily arousable, opens eyes spontaneously. pt on 3L O2 via NC, O2 sat 97%. No acute distress noted. ST 110 noted on the monitor. Serrano cath intact and patent, draining yellow urine by gravity. pt noted with OGT, pt kept NPO. abdominal dressings intact, clean and dry. JUNE to right lower abd intact, serosanguineous drainage noted.. lower abdominal kenneth intact and clean, open to air. No s/sx of bleeding noted. Left upper arm double lumen PICC line intact, running TPN at 78ml/hr. Pt's at bedside. Bed in lowest position, call light within reach, bed alarm on. Will continue to monitor and with patients plan of care. Addendum: 07/19/18 at 0843 by GEN FELTON RN correction: pt has NGT
[2018-07-19] MEDS: Lactulose 20gm/30ml UDC ORAL SCH ×3 (08:43→18:00)
[2018-07-19] MEDS: Pantoprazole Inj IVP SCH ×2 (08:43→20:20)
[2018-07-19] MEDS: Metoprolol 25mg tab NG SCH (08:44)
[2018-07-19] MEDS: Docusate 100mg/10ml Liq NG SCH ×2 (08:45→16:51)
[2018-07-19] MEDS: Heparin 5000 units/ml inj SUBQ SCH ×2 (08:46→20:19)
[2018-07-19 08:51] LABS: PHOSPHORUS 2.6 MG/DL (2.5-4.9)
--- NOTE | 2018-07-19 09:14 | General Progress Note ---
Assessment/Plan Assessment/Plan #Sepsis #Acute purulent gangrenous cholecystitis. #acute Hypoxic respiratory failure #Acute Metabolic Encephalopathy - due to alcohol withdrawal and sepsis - zosyn - bcx x 2 ngtd - s/p ercp 07/12 - gen surg consulted, s/p lap jocelyn converted to open jocelyn 07/12 - extubated on 07/16.19 - off o2 ncl - pulm consult appreciated - pain control - appreciate surg recs - fluids - tube feeds #Acute Blood Loss Anemia - due to recent surgery - no overt bleeding noted currently - hgb 6.8 07/15, transfused 2U, 9.7 (07/16) - stable #Pleural Effusions - b/l - per mrcp - stable - pulm consult apprecaited #Alcohol Pancreatitis #Intractable abdominal pain #intractable nausea/vomiting #Transaminitis #Alcohol Hepatitis #Alcohol withdrawals #Fatty Liver Disease #Hepatitis C - LFTs 446/532 - Lipase 687 - due to alcohol abuse - INR 1.0 - discriminant function, 4.5 , no need for steroids - US abd completed and reviewed, showing fatty liver disease. GS present, no obstruction noted - ppi - PRN antiemetics, zofran prn - Banana bag - close lab monitoring - IVF - monitor carefully for withdrawals - tube feeds held due to worsening pancreatitis - TPN - Per GI, will need ERCP in 6-8 weeks for stent removal #Failure to thrive - due to alcohol withdrawals and the above - alcoholic pancreatitis - fluids #Alcohol Abuse - educated on cessation for 15 mins - patient states he understands and will try to quit - RN notified to monitor carefully with withdrawals - prn ativan - ciwa #Uncontrolled HTN - clonidine 0.1 mg po prn - amlodipine 10mg qday - due to withdrawals #Tobacco abuse - smokes 1ppd - educated on smoking cessation for over 15 mins, states he understands the risks of smoking and will try to quit diet: NPO DVT Prophylaxis: SCD, HSQ Code Status: Full Hospital Classification Declaration: Based on this initial evaluation, and depending on the patient's clinical course, I anticipate that this patient will require hospitalization for 2-3days for alcohol abuse, pancreatitis and close respiratory/hemodynamic monitoring. I have reviewed all labs, imaging and medications Disposition: Once the patient is stable to leave the hospital, I anticipate the patient will likely be discharged to the following environment: home I spent over 50 minutes on this patient's case, and over 50% of that time was spent on counseling and/or care . Discussed with patient/family, nursing staff , SW/CM regarding clinical status, treatment course, and disposition planning. over 30 mins of critical care time have been spent on this patient including vent management Time of note may not reflect time of encounter. ------- Date of Discussion: 07/03/18 A [id number] discussion with the patient regarding the patient's advanced care planning took place during this hospitalization on the above date. The discussion included the explanation and discussion of advance directives and associated forms/documents, as well as the patient's current code status. We also discussed at length the patient's medical conditions (both acute and chronic), general prognosis, treatment options, and goals of care. The following summarizes the discussion: Advance Care Planning/Goals of Care: - Will attempt to fill out an AD and/or POLST with the patient prior to discharge, if not already completed - Continue current evaluation and management of any acute and chronic medical issues - Will continue to support the patient/family - Will continue to discuss both short- and long-term goals of care DPOA-HC/Surrogate Decision Maker: : Bonnie Crenshaw Code Status: Full Code AD Forms/Documents Completed: Deferred A total of 34 minutes was spent on this discussion, including counseling, answering questions, and completing, if any, pertinent advanced care planning forms/documents. Subjective Date patient seen: Jul 19, 2018 Time patient seen: 09:12 Allergies: Coded Allergies: No Known Allergies (Unverified , 06/01/16) Subjective f/u pancreatitis, cholecystitis, sepsis, alcoholic hepatitis, nausea, alcohol abuse, alcohol withdrawals s/p ercp 07/12 and subsequent open jocelyn, full of pus, gangrenous jocelyn, drain left in extubated 07/16 TF stable improving slowly awake ROS: 14 point ROS reviewed and negative except per above Objective Last 24 Hour Vital Signs Date Time Temp Pulse Resp B/P (MAP) Pulse Ox O2 Delivery O2 Flow Rate FiO2 07/19/18 08:44 117 110/74 07/19/18 08:44 117 110/74 07/19/18 07:46 112 25 98 Nasal Cannula 3.0 32 07/19/18 07:36 108 26 98 Nasal Cannula 3.0 07/19/18 07:34 97 Nasal Cannula 3.0 07/19/18 07:33 Nasal Cannula 3.0 07/19/18 06:00 116 24 120/70 97 Nasal Cannula 4.0 07/19/18 05:00 99.4 109 28 106/67 97 Nasal Cannula 4.0 07/19/18 04:00 110 07/19/18 04:00 Nasal Cannula 3.0 Venturi Mask 07/19/18 04:00 111 30 112/74 96 Nasal Cannula 4.0 07/19/18 04:00 113 07/19/18 03:00 97 26 113/71 98 Nasal Cannula 4.0 07/19/18 02:00 114 27 127/76 93 Nasal Cannula 4.0 07/19/18 01:00 118 27 128/78 99 Nasal Cannula 4.0 07/19/18 00:50 117 26 99 Nasal Cannula 3.0 32 07/19/18 00:41 109 23 97 Venturi Mask 10.0 45 07/19/18 00:00 112 24 128/78 100 Nasal Cannula 4.0 07/19/18 00:00 Venturi Mask 8.0 Venturi Mask 07/19/18 00:00 90 07/18/18 23:00 111 26 113/73 98 07/18/18 22:27 99.5 07/18/18 22:00 111 23 137/83 97 Venturi Mask 45 07/18/18 21:00 120 22 141/74 97 Venturi Mask 45 07/18/18 20:00 Venturi Mask 8.0 Venturi Mask 07/18/18 20:00 88 07/18/18 20:00 116 28 140/77 95 Venturi Mask 45 07/18/18 19:15 125 28 98 Venturi Mask 10.0 45 07/18/18 19:02 97 Venturi Mask 10.0 45 07/18/18 19:02 Venturi Mask 10.0 45 07/18/18 19:01 120 30 97 Venturi Mask 10.0 45 07/18/18 19:00 116 21 134/85 98 Venturi Mask 45 07/18/18 18:00 115 21 144/78 98 Venturi Mask 45 07/18/18 17:00 118 21 128/79 98 Venturi Mask 45 07/18/18 16:00 99.7 116 21 134/81 98 Venturi Mask 45 07/18/18 16:00 Venturi Mask 8.0 Venturi Mask 07/18/18 16:00 120 07/18/18 15:00 110 21 130/77 98 Venturi Mask 45 07/18/18 14:00 116 21 134/81 98 Venturi Mask 45 07/18/18 13:00 112 28 119/68 98 Venturi Mask 45 07/18/18 12:45 105 22 97 Venturi Mask 10.0 45 07/18/18 12:44 105 24 97 Venturi Mask 10.0 45 07/18/18 12:22 105 28 126/82 98 Venturi Mask 45 07/18/18 12:00 Venturi Mask 8.0 Venturi Mask 07/18/18 12:00 99 07/18/18 12:00 99.3 99 28 127/75 98 Venturi Mask 45 07/18/18 11:00 105 28 126/82 98 Venturi Mask 45 07/18/18 10:00 102 24 124/71 99 Venturi Mask 45 Intake and Output 07/18/18 07/19/18 19:00 07:00 Intake Total 1035.0 ml 727.000 ml Output Total 1655 ml 2450 ml Balance -620.0 ml -1723.000 ml IV Total 1035.0 ml 727.000 ml Output Urine Total 1655 ml 2425 ml Drainage Total 25 ml # Bowel Movements 7 3 Laboratory Tests 07/19/18 04:08: White Blood Count 21.8H, Red Blood Count 3.18L, Hemoglobin 11.1L, Hematocrit 32.2L, Mean Corpuscular Volume 102H, Mean Corpuscular Hemoglobin 35.0H, Mean Corpuscular Hemoglobin Concent 34.5, Red Cell Distribution Width 14.0, Platelet Count 692H, Mean Platelet Volume 6.4L, Neutrophils (%) (Auto) , Lymphocytes (%) (Auto) , Monocytes (%) (Auto) , Eosinophils (%) (Auto) , Basophils (%) (Auto) , Neutrophils % (Manual) [Pending], Lymphocytes % (Manual) [Pending], Platelet Estimate [Pending], Platelet Morphology [Pending], Prothrombin Time 11.5, Prothromb Time International Ratio 1.1, Activated Partial Thromboplast Time 28, Sodium Level 142, Potassium Level 3.6, Chloride Level 107, Carbon Dioxide Level 25, Anion Gap 10, Blood Urea Nitrogen 12, Creatinine 0.8, Estimat Glomerular Filtration Rate > 60, Glucose Level 114H, Calcium Level 8.4L, Phosphorus Level 2.6, Magnesium Level 2.4, Total Bilirubin 0.4, Aspartate Amino Transf (AST/SGOT ) 60H, Alanine Aminotransferase (ALT/SGPT) 52, Alkaline Phosphatase 75, Total Protein 7.9, Albumin 1.9L, Globulin 6.0, Albumin/Globulin Ratio 0.3L, Lipase > 2000H Height (Feet): 5 Height (Inches): 9.00 Weight (Pounds): 160 Objective General Appearance: alert, stable, awake Lines, tubes and drains: peripheral HEENT: normocephalic, atraumatic, anicteric, PERRL Neck: non-tender, normal alignment Respiratory/Chest: chest wall non-tender, mechanical breath sounds, no respiratory distress, no accessory muscle use Cardiovascular/Chest: normal peripheral pulses, normal rate, regular rhythm Abdomen: normal bowel sounds, soft, no organomegaly, no mass, drain in place, Extremities: normal range of motion, non-tender, normal inspection, no calf tenderness, normal capillary refill, non-pitting. +asterixis Skin Exam: normal pigmentation, warm/dry Neurologic: no motor/sensory deficits, alert, oriented x 3, responsive, normal mood/affect Eulogio Siddiqi MD Jul 19, 2018 09:14
--- NOTE | 2018-07-19 09:29 | NUR ---
RADIOLOGY DEPT CHEST X-RAY DONE.-P.DYE
--- NOTE | 2018-07-19 09:33 | NUR ---
VBG: pH7.318 uBX408.8 mmHg pO249.4 mmHg LBU483.0 mmol/L BE-3.3 mmol/L sO287.0 % Note: JAVIER Garcia notified. Addendum: 07/19/18 at 1033 by MILENA DAIGLE, RT RT VBG results entered in ERROR. Results are not for this patient. JAVIER notified.
[2018-07-19] MEDS: Vancomycin 1250mg/D5W 250ml IVPB SCH (09:47)
[2018-07-19 10:04] LABS: APPEARANCE,URINE CLEAR; BILIRUBIN, URINE NEGATIVE (NEGATIVE); GLUCOSE, URINE (UA) NEGATIVE (NEGATIVE); KETONES,URINE 1+ (NEGATIVE); LEUKOCYTE ESTERASE ,URINE 1+ (NEGATIVE); NITRITE,URINE NEGATIVE (NEGATIVE); PH,URINE 6 (4.5-8.0); PROTEIN,URINE 3+ (NEGATIVE); UROBILINOGEN,URINE NORMAL MG/DL (0.0-1.0)
[2018-07-19 10:15] LABS: COLOR,URINE YELLOW
--- NOTE | 2018-07-19 10:15 | NUR ---
NURSE NOTES: Patient had diarrhea x1, pt kept clean and dry. Oral care and melchor care performed. at bedside.
--- NOTE | 2018-07-19 11:13 | GI Progress Note ---
Assessment/Plan Problems: (1) Abnormal LFTs ICD Codes: R79.89 - Other specified abnormal findings of blood chemistry SNOMED: 382852424 (2) Cholecystitis, acute ICD Codes: K81.0 - Acute cholecystitis SNOMED: 24812733 (3) Hepatitis C ICD Codes: B19.20 - Unspecified viral hepatitis C without hepatic coma SNOMED: 36624886 (4) Fatty liver ICD Codes: K76.0 - Fatty (change of) liver, not elsewhere classified SNOMED: 938121451 (5) Alcoholic pancreatitis ICD Codes: K85.20 - Alcohol induced acute pancreatitis without necrosis or infection SNOMED: 261259797 (6) Pancreatitis, acute ICD Codes: K85.90 - Acute pancreatitis without necrosis or infection, unspecified SNOMED: 493491328 Status: stable Status Narrative Discussed with Dr. Yip. Assessment/Plan SUMMARY OF FINDINGS: 1. 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 2. Status post ERCP with sphincterotomy, balloon assistance sludge and some pus extraction from the common bile duct and then stent placement. s/p open jocelyn, now in ICU with pancreatitis hepatitis C positive RECOMMENDATIONS: follow up surgical recommendations TPN prn transfusions trend lipase fu labs The patient will need repeat ERCP in 6 to 8 weeks for stent removal. outpatient Hep C tx The patient was seen and examined at bedside and all new and available data was reviewed in the patients chart. I agree with the above findings, impression and plan. (Patient seen earlier today. Signature stamp does not reflect patient encounter time.). - Toñito Yip MD Subjective Subjective limited Objective Last 24 Hour Vital Signs Date Time Temp Pulse Resp B/P (MAP) Pulse Ox O2 Delivery O2 Flow Rate FiO2 07/19/18 11:00 110 18 120/77 100 Nasal Cannula 3.0 07/19/18 10:00 105 24 116/73 99 Nasal Cannula 3.0 07/19/18 09:00 112 29 109/72 99 Nasal Cannula 3.0 07/19/18 08:44 117 110/74 07/19/18 08:44 117 110/74 07/19/18 08:00 Nasal Cannula 3.0 Venturi Mask 07/19/18 08:00 121 07/19/18 08:00 99.1 121 30 110/74 96 Nasal Cannula 3.0 07/19/18 07:46 112 25 98 Nasal Cannula 3.0 32 07/19/18 07:36 108 26 98 Nasal Cannula 3.0 07/19/18 07:34 97 Nasal Cannula 3.0 07/19/18 07:33 Nasal Cannula 3.0 07/19/18 07:00 116 26 120/70 100 Nasal Cannula 3.0 07/19/18 06:00 116 24 120/70 97 Nasal Cannula 4.0 07/19/18 05:00 99.4 109 28 106/67 97 Nasal Cannula 4.0 07/19/18 04:00 110 07/19/18 04:00 Nasal Cannula 3.0 Venturi Mask 07/19/18 04:00 111 30 112/74 96 Nasal Cannula 4.0 07/19/18 04:00 113 07/19/18 03:00 97 26 113/71 98 Nasal Cannula 4.0 07/19/18 02:00 114 27 127/76 93 Nasal Cannula 4.0 07/19/18 01:00 118 27 128/78 99 Nasal Cannula 4.0 07/19/18 00:50 117 26 99 Nasal Cannula 3.0 32 07/19/18 00:41 109 23 97 Venturi Mask 10.0 45 07/19/18 00:00 112 24 128/78 100 Nasal Cannula 4.0 07/19/18 00:00 Venturi Mask 8.0 Venturi Mask 07/19/18 00:00 90 07/18/18 23:00 111 26 113/73 98 07/18/18 22:27 99.5 07/18/18 22:00 111 23 137/83 97 Venturi Mask 45 07/18/18 21:00 120 22 141/74 97 Venturi Mask 45 07/18/18 20:00 Venturi Mask 8.0 Venturi Mask 07/18/18 20:00 88 07/18/18 20:00 116 28 140/77 95 Venturi Mask 45 07/18/18 19:15 125 28 98 Venturi Mask 10.0 45 07/18/18 19:02 97 Venturi Mask 10.0 45 07/18/18 19:02 Venturi Mask 10.0 45 07/18/18 19:01 120 30 97 Venturi Mask 10.0 45 07/18/18 19:00 116 21 134/85 98 Venturi Mask 45 07/18/18 18:00 115 21 144/78 98 Venturi Mask 45 07/18/18 17:00 118 21 128/79 98 Venturi Mask 45 07/18/18 16:00 99.7 116 21 134/81 98 Venturi Mask 45 07/18/18 16:00 Venturi Mask 8.0 Venturi Mask 07/18/18 16:00 120 07/18/18 15:00 110 21 130/77 98 Venturi Mask 45 07/18/18 14:00 116 21 134/81 98 Venturi Mask 45 07/18/18 13:00 112 28 119/68 98 Venturi Mask 45 07/18/18 12:45 105 22 97 Venturi Mask 10.0 45 07/18/18 12:44 105 24 97 Venturi Mask 10.0 45 07/18/18 12:22 105 28 126/82 98 Venturi Mask 45 07/18/18 12:00 Venturi Mask 8.0 Venturi Mask 07/18/18 12:00 99 07/18/18 12:00 99.3 99 28 127/75 98 Venturi Mask 45 Intake and Output 07/18/18 07/19/18 19:00 07:00 Intake Total 1035.0 ml 805.000 ml Output Total 1655 ml 2550 ml Balance -620.0 ml -1745.000 ml IV Total 1035.0 ml 805.000 ml Output Urine Total 1655 ml 2525 ml Drainage Total 25 ml # Bowel Movements 7 3 Laboratory Tests Test 07/19/18 04:08 07/19/18 08:05 White Blood Count 21.8 K/UL (4.8-10.8) H Red Blood Count 3.18 M/UL (4.70-6.10) L Hemoglobin 11.1 G/DL (14.2-18.0) L Hematocrit 32.2 % (42.0-52.0) L Mean Corpuscular Volume 102 FL (80-99) H Mean Corpuscular Hemoglobin 35.0 PG (27.0-31.0) H Mean Corpuscular Hemoglobin Concent 34.5 G/DL (32.0-36.0) Red Cell Distribution Width 14.0 % (11.6-14.8) Platelet Count 692 K/UL (150-450) H Mean Platelet Volume 6.4 FL (6.5-10.1) L Neutrophils (%) (Auto) % (45.0-75.0) Lymphocytes (%) (Auto) % (20.0-45.0) Monocytes (%) (Auto) % (1.0-10.0) Eosinophils (%) (Auto) % (0.0-3.0) Basophils (%) (Auto) % (0.0-2.0) Differential Total Cells Counted 100 Neutrophils % (Manual) 90 % (45-75) H Lymphocytes % (Manual) 6 % (20-45) L Monocytes % (Manual) 4 % (1-10) Eosinophils % (Manual) 0 % (0-3) Basophils % (Manual) 0 % (0-2) Band Neutrophils 0 % (0-8) Platelet Estimate Increased H Platelet Morphology Normal Macrocytosis 1+ Prothrombin Time 11.5 SEC (9.30-11.50) Prothromb Time International Ratio 1.1 (0.9-1.1) Activated Partial Thromboplast Time 28 SEC (23-33) Sodium Level 142 MMOL/L (136-145) Potassium Level 3.6 MMOL/L (3.5-5.1) Chloride Level 107 MMOL/L (98-107) Carbon Dioxide Level 25 MMOL/L (21-32) Anion Gap 10 mmol/L (5-15) Blood Urea Nitrogen 12 mg/dL (7-18) Creatinine 0.8 MG/DL (0.55-1.30) Estimat Glomerular Filtration Rate > 60 mL/min (>60) Glucose Level 114 MG/DL (74-106) H Calcium Level 8.4 MG/DL (8.5-10.1) L Phosphorus Level 2.6 MG/DL (2.5-4.9) Magnesium Level 2.4 MG/DL (1.8-2.4) Total Bilirubin 0.4 MG/DL (0.2-1.0) Aspartate Amino Transf (AST/SGOT) 60 U/L (15-37) H Alanine Aminotransferase (ALT/SGPT) 52 U/L (12-78) Alkaline Phosphatase 75 U/L (46-116) Total Protein 7.9 G/DL (6.4-8.2) Albumin 1.9 G/DL (3.4-5.0) L Globulin 6.0 g/dL Albumin/Globulin Ratio 0.3 (1.0-2.7) L Lipase > 2000 U/L (73-393) H Urine Color Yellow Urine Appearance Clear Urine pH 6 (4.5-8.0) Urine Specific [place] 1.015 (1.005-1.035) Urine Protein 3+ (NEGATIVE) H Urine Glucose (UA) Negative (NEGATIVE) Urine Ketones 1+ (NEGATIVE) H Urine Blood 3+ (NEGATIVE) H Urine Nitrite Negative (NEGATIVE) Urine Bilirubin Negative (NEGATIVE) Urine Urobilinogen Normal MG/DL (0.0-1.0) Urine Leukocyte Esterase 1+ (NEGATIVE) H Urine RBC 5-10 /HPF (0 - 0) H Urine WBC 2-4 /HPF (0 - 0) Urine Squamous Epithelial Cells Occasional /LPF Urine Bacteria Few /HPF (NONE) Urine Yeast Few /HPF (NONE) H Height (Feet): 5 Height (Inches): 9.00 Weight (Pounds): 160 General Appearance: no apparent distress Cardiovascular: normal rate Respiratory/Chest: normal breath sounds, no respiratory distress Abdominal Exam: soft Sonja Neely NP Jul 19, 2018 11:13
--- NOTE | 2018-07-19 12:00 | NUR ---
NURSE NOTES: patient is awake, able to follow some simple commands. No acute distress noted. Patient was repositioned.
--- NOTE | 2018-07-19 12:11 | Diagnostic Imaging Report ---
Indication: Shortness of breath Technique: One view of the chest Comparison: 07/17/2018 post PICC radiograph Findings: Right-sided pleural effusion and hazy consolidation throughout the right lung is again noted. Apparent elevation of the right hemidiaphragm is again noted. The left lung demonstrates a very faint opacity in the left midlung which is not evident previously. However, interstitial congestion in the left lung has improved. Impression: Persistent right-sided pleural effusion and fairly extensive parenchymal infiltrate or edema Improved left lung interstitial congestion. Focal patchy left lung abnormality was not evident previously, however, and could represent a small area of infiltrate
--- NOTE | 2018-07-19 12:24 | Pulmonolgy Critical Care Note ---
Critical Care - Asmt/Plan Problems: (1) Respiratory disorder with ventilator dependence (2) Gangrenous cholecystitis (3) S/P cholecystectomy (4) Abnormal LFTs (5) Cholecystitis, acute (6) Hepatitis C (7) Alcoholic pancreatitis (8) Pancreatitis, acute (9) Alcohol abuse (10) Fatty liver (11) Tobacco use (12) Blood loss anemia (13) Pneumonia Respiratory: monitor respiratory rate, adjust FIO2, other - HHN's Cardiac: continue to monitor HR/BP Renal: check electrolytes Infectious Disease: check cultures, continue antibiotics - Vanco, Jair, Flucon per ID Gastrointestinal: other - NPO, TPN, GI and kevin recs Endocrine: monitor blood sugar Hematologic: monitor H/H Neurologic: keep patient comfortable Prophylaxis: Protonix, Heparin Disposition: transfer to - [facility] Time Spent (Minutes): 40 Notes Reviewed: sales associate, ID, GI, 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 Discussed with: nurses, consultants Critical Care - Objective Last 24 Hour Vital Signs Date Time Temp Pulse Resp B/P (MAP) Pulse Ox O2 Delivery O2 Flow Rate FiO2 07/19/18 12:00 108 07/19/18 12:00 98.7 102 25 110/70 98 Nasal Cannula 3.0 07/19/18 12:00 Nasal Cannula 3.0 Venturi Mask 07/19/18 11:00 110 18 120/77 100 Nasal Cannula 3.0 07/19/18 10:00 105 24 116/73 99 Nasal Cannula 3.0 07/19/18 09:00 112 29 109/72 99 Nasal Cannula 3.0 07/19/18 08:44 117 110/74 07/19/18 08:44 117 110/74 07/19/18 08:00 Nasal Cannula 3.0 Venturi Mask 07/19/18 08:00 121 07/19/18 08:00 99.1 121 30 110/74 96 Nasal Cannula 3.0 07/19/18 07:46 112 25 98 Nasal Cannula 3.0 32 07/19/18 07:36 108 26 98 Nasal Cannula 3.0 07/19/18 07:34 97 Nasal Cannula 3.0 07/19/18 07:33 Nasal Cannula 3.0 07/19/18 07:00 116 26 120/70 100 Nasal Cannula 3.0 07/19/18 06:00 116 24 120/70 97 Nasal Cannula 4.0 07/19/18 05:00 99.4 109 28 106/67 97 Nasal Cannula 4.0 07/19/18 04:00 110 07/19/18 04:00 Nasal Cannula 3.0 Venturi Mask 07/19/18 04:00 111 30 112/74 96 Nasal Cannula 4.0 07/19/18 04:00 113 07/19/18 03:00 97 26 113/71 98 Nasal Cannula 4.0 07/19/18 02:00 114 27 127/76 93 Nasal Cannula 4.0 07/19/18 01:00 118 27 128/78 99 Nasal Cannula 4.0 07/19/18 00:50 117 26 99 Nasal Cannula 3.0 32 07/19/18 00:41 109 23 97 Venturi Mask 10.0 45 07/19/18 00:00 112 24 128/78 100 Nasal Cannula 4.0 07/19/18 00:00 Venturi Mask 8.0 Venturi Mask 07/19/18 00:00 90 07/18/18 23:00 111 26 113/73 98 07/18/18 22:27 99.5 07/18/18 22:00 111 23 137/83 97 Venturi Mask 45 07/18/18 21:00 120 22 141/74 97 Venturi Mask 45 07/18/18 20:00 Venturi Mask 8.0 Venturi Mask 07/18/18 20:00 88 07/18/18 20:00 116 28 140/77 95 Venturi Mask 45 07/18/18 19:15 125 28 98 Venturi Mask 10.0 45 07/18/18 19:02 97 Venturi Mask 10.0 45 07/18/18 19:02 Venturi Mask 10.0 45 07/18/18 19:01 120 30 97 Venturi Mask 10.0 45 07/18/18 19:00 116 21 134/85 98 Venturi Mask 45 07/18/18 18:00 115 21 144/78 98 Venturi Mask 45 07/18/18 17:00 118 21 128/79 98 Venturi Mask 45 07/18/18 16:00 99.7 116 21 134/81 98 Venturi Mask 45 07/18/18 16:00 Venturi Mask 8.0 Venturi Mask 07/18/18 16:00 120 07/18/18 15:00 110 21 130/77 98 Venturi Mask 45 07/18/18 14:00 116 21 134/81 98 Venturi Mask 45 07/18/18 13:00 112 28 119/68 98 Venturi Mask 45 07/18/18 12:45 105 22 97 Venturi Mask 10.0 45 07/18/18 12:44 105 24 97 Venturi Mask 10.0 45 07/18/18 12:22 105 28 126/82 98 Venturi Mask 45 Status: obtunded Condition: improving HEENT: atraumatic, normocephalic Lungs: clear Heart: HR/BP stable Abdomen: soft, non-tender, active bowel sounds, other - dressed, JUNE Extremities: no C/C/E Accucheck: 135 Blood Sugars: BS controlled Critical Care - Subjective ROS Limited/Unobtainable: Yes ICU Day: 8 Intubation Day: 3L NC Interval Events: AFVSS x ST on 3L MS waxes and wanes Weak cough no SOB no F/C Condition: stable IV Access: PICC - LUE EKG Rhythm: Sinus Tachycardia FI02: 32 Vent Support Breath Rate: 14 Vent Support Mode: CPAP Vent Tidal Volume: 500 Sputum Amount: Large PEEP: 5.0 PIP: 15 Secretions: Large thick secretions Fluids: TPN, SLIV Drips: N/A Tube Feeding Amount: 0 I&O: Intake and Output 07/18/18 07/19/18 19:00 07:00 Intake Total 1035.0 ml 805.000 ml Output Total 1655 ml 2550 ml Balance -620.0 ml -1745.000 ml IV Total 1035.0 ml 805.000 ml Output Urine Total 1655 ml 2525 ml Drainage Total 25 ml # Bowel Movements 7 3 Subjective: KEO ET-Tube: 8.0 ET Position: 24 Labs: Laboratory Tests Test 07/19/18 04:08 07/19/18 08:05 White Blood Count 21.8 K/UL (4.8-10.8) H Red Blood Count 3.18 M/UL (4.70-6.10) L Hemoglobin 11.1 G/DL (14.2-18.0) L Hematocrit 32.2 % (42.0-52.0) L Mean Corpuscular Volume 102 FL (80-99) H Mean Corpuscular Hemoglobin 35.0 PG (27.0-31.0) H Mean Corpuscular Hemoglobin Concent 34.5 G/DL (32.0-36.0) Red Cell Distribution Width 14.0 % (11.6-14.8) Platelet Count 692 K/UL (150-450) H Mean Platelet Volume 6.4 FL (6.5-10.1) L Neutrophils (%) (Auto) % (45.0-75.0) Lymphocytes (%) (Auto) % (20.0-45.0) Monocytes (%) (Auto) % (1.0-10.0) Eosinophils (%) (Auto) % (0.0-3.0) Basophils (%) (Auto) % (0.0-2.0) Differential Total Cells Counted 100 Neutrophils % (Manual) 90 % (45-75) H Lymphocytes % (Manual) 6 % (20-45) L Monocytes % (Manual) 4 % (1-10) Eosinophils % (Manual) 0 % (0-3) Basophils % (Manual) 0 % (0-2) Band Neutrophils 0 % (0-8) Platelet Estimate Increased H Platelet Morphology Normal Macrocytosis 1+ Prothrombin Time 11.5 SEC (9.30-11.50) Prothromb Time International Ratio 1.1 (0.9-1.1) Activated Partial Thromboplast Time 28 SEC (23-33) Sodium Level 142 MMOL/L (136-145) Potassium Level 3.6 MMOL/L (3.5-5.1) Chloride Level 107 MMOL/L (98-107) Carbon Dioxide Level 25 MMOL/L (21-32) Anion Gap 10 mmol/L (5-15) Blood Urea Nitrogen 12 mg/dL (7-18) Creatinine 0.8 MG/DL (0.55-1.30) Estimat Glomerular Filtration Rate > 60 mL/min (>60) Glucose Level 114 MG/DL (74-106) H Calcium Level 8.4 MG/DL (8.5-10.1) L Phosphorus Level 2.6 MG/DL (2.5-4.9) Magnesium Level 2.4 MG/DL (1.8-2.4) Total Bilirubin 0.4 MG/DL (0.2-1.0) Aspartate Amino Transf (AST/SGOT) 60 U/L (15-37) H Alanine Aminotransferase (ALT/SGPT) 52 U/L (12-78) Alkaline Phosphatase 75 U/L (46-116) Total Protein 7.9 G/DL (6.4-8.2) Albumin 1.9 G/DL (3.4-5.0) L Globulin 6.0 g/dL Albumin/Globulin Ratio 0.3 (1.0-2.7) L Lipase > 2000 U/L (73-393) H Urine Color Yellow Urine Appearance Clear Urine pH 6 (4.5-8.0) Urine Specific [place] 1.015 (1.005-1.035) Urine Protein 3+ (NEGATIVE) H Urine Glucose (UA) Negative (NEGATIVE) Urine Ketones 1+ (NEGATIVE) H Urine Blood 3+ (NEGATIVE) H Urine Nitrite Negative (NEGATIVE) Urine Bilirubin Negative (NEGATIVE) Urine Urobilinogen Normal MG/DL (0.0-1.0) Urine Leukocyte Esterase 1+ (NEGATIVE) H Urine RBC 5-10 /HPF (0 - 0) H Urine WBC 2-4 /HPF (0 - 0) Urine Squamous Epithelial Cells Occasional /LPF Urine Bacteria Few /HPF (NONE) Urine Yeast Few /HPF (NONE) H Trenton Ladd MD Jul 19, 2018 12:24
--- NOTE | 2018-07-19 14:10 | NUR ---
NURSE NOTES: patient on 3L O2 via NC, saturating 99%. No respiratory distress noted. VSS.
--- NOTE | 2018-07-19 14:37 | Infectious Diseases Prog Note ---
Assessment/Plan Assessment/Plan ASSESSMENT AND PLAN: 1. sepsis, klebsiella cholecystitis, possible pna, leukocytosis, fevers, sirs - meropenem, vancomycin and diflucan - check cultures - monitor labs, wbc, temps and chest x-ray - icu/supportive care 3. Smoking use. 4. Anemia. 5. Thrombocytosis. 6. No history of diabetes, hypertension, but he is on Norvasc. 7. No known allergies. 8. Social history positive for smoking and alcohol use. No history of intravenous drug abuse. 9. MAR was noted. 10. Case discussed with RN. 11. Continue treatment per primary consultants. 12. Case discussed at length the ICU nurse, the patient currently in ICU. 13. Continue skin care protocol and pulmonary treatments for now. Subjective Constitutional: Reports: fever - fever curve better today , other - more alert HEENT: Reports: congestion - less Respiratory: Reports: shortness of breath - less Cardiovascular: Denies: chest pain Gastrointestinal/Abdominal: Denies: nausea, vomiting, diarrhea Genitourinary: Reports: other - + melchor Neurologic: Denies: headache Psychiatric: Denies: depression Skin: Denies: rash Hematologic: Denies: bleeding Musculoskeletal: Denies: pain Allergies: Coded Allergies: No Known Allergies (Unverified , 06/01/16) Objective Vital Signs Last 24 Hour Vital Signs Date Time Temp Pulse Resp B/P (MAP) Pulse Ox O2 Delivery O2 Flow Rate FiO2 07/19/18 14:00 117 24 100 Nasal Cannula 3.0 32 07/19/18 13:50 102 24 97 Nasal Cannula 3.0 07/19/18 13:00 96 27 110/69 98 Nasal Cannula 3.0 07/19/18 12:00 108 07/19/18 12:00 98.7 102 25 110/70 98 Nasal Cannula 3.0 07/19/18 12:00 Nasal Cannula 3.0 Venturi Mask 07/19/18 11:00 110 18 120/77 100 Nasal Cannula 3.0 07/19/18 10:00 105 24 116/73 99 Nasal Cannula 3.0 07/19/18 09:00 112 29 109/72 99 Nasal Cannula 3.0 07/19/18 08:44 117 110/74 07/19/18 08:44 117 110/74 07/19/18 08:00 Nasal Cannula 3.0 Venturi Mask 07/19/18 08:00 121 07/19/18 08:00 99.1 121 30 110/74 96 Nasal Cannula 3.0 07/19/18 07:46 112 25 98 Nasal Cannula 3.0 32 07/19/18 07:36 108 26 98 Nasal Cannula 3.0 07/19/18 07:34 97 Nasal Cannula 3.0 07/19/18 07:33 Nasal Cannula 3.0 07/19/18 07:00 116 26 120/70 100 Nasal Cannula 3.0 07/19/18 06:00 116 24 120/70 97 Nasal Cannula 4.0 07/19/18 05:00 99.4 109 28 106/67 97 Nasal Cannula 4.0 07/19/18 04:00 110 07/19/18 04:00 Nasal Cannula 3.0 Venturi Mask 07/19/18 04:00 111 30 112/74 96 Nasal Cannula 4.0 07/19/18 04:00 113 07/19/18 03:00 97 26 113/71 98 Nasal Cannula 4.0 07/19/18 02:00 114 27 127/76 93 Nasal Cannula 4.0 07/19/18 01:00 118 27 128/78 99 Nasal Cannula 4.0 07/19/18 00:50 117 26 99 Nasal Cannula 3.0 32 07/19/18 00:41 109 23 97 Venturi Mask 10.0 45 07/19/18 00:00 112 24 128/78 100 Nasal Cannula 4.0 07/19/18 00:00 Venturi Mask 8.0 Venturi Mask 07/19/18 00:00 90 07/18/18 23:00 111 26 113/73 98 07/18/18 22:27 99.5 07/18/18 22:00 111 23 137/83 97 Venturi Mask 45 07/18/18 21:00 120 22 141/74 97 Venturi Mask 45 07/18/18 20:00 Venturi Mask 8.0 Venturi Mask 07/18/18 20:00 88 07/18/18 20:00 116 28 140/77 95 Venturi Mask 45 07/18/18 19:15 125 28 98 Venturi Mask 10.0 45 07/18/18 19:02 97 Venturi Mask 10.0 45 07/18/18 19:02 Venturi Mask 10.0 45 07/18/18 19:01 120 30 97 Venturi Mask 10.0 45 07/18/18 19:00 116 21 134/85 98 Venturi Mask 45 07/18/18 18:00 115 21 144/78 98 Venturi Mask 45 07/18/18 17:00 118 21 128/79 98 Venturi Mask 45 07/18/18 16:00 99.7 116 21 134/81 98 Venturi Mask 45 07/18/18 16:00 Venturi Mask 8.0 Venturi Mask 07/18/18 16:00 120 07/18/18 15:00 110 21 130/77 98 Venturi Mask 45 Height (Feet): 5 Height (Inches): 9.00 Weight (Pounds): 160 General Appearance: no acute distress HEENT: normocephalic, atraumatic, anicteric Respiratory/Chest: no respiratory distress, no accessory muscle use, crackles/ rales, rhonchi - bilaterally Cardiovascular: normal rate, regular rhythm, regularly irregular, no JVD Abdomen: normal bowel sounds, soft, non tender, no organomegaly, non distended , other - incision covered Genitourinary: other - + melchor - urine clear Extremities: no cyanosis Skin: no rash 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 Apparent elevation of the right hemidiaphragm is again noted. The left lung demonstrates a very faint opacity in the left midlung which is not evident previously. However, interstitial congestion in the left lung has improved. Impression: Persistent right-sided pleural effusion and fairly extensive parenchymal infiltrate or edema Improved left lung interstitial congestion. Focal patchy left lung abnormality was not evident previously, however, and could represent a small area of infiltrate Microbiology Date/Time Source Procedure Growth Status 07/06/18 12:30 Blood Blood Culture - Final NO GROWTH AFTER 5 DAYS Complete 07/12/18 20:50 Peritoneal Fluid Gram Stain - Final Complete 07/12/18 20:50 Peritoneal Fluid Aerobic Culture - Final NO GROWTH Complete 07/12/18 20:50 Peritoneal Fluid Anaerobic Culture - Final NO GROWTH AFTER 5 DAYS Complete 07/06/18 11:30 Urine,Clean Catch Urine Culture - Final NO GROWTH AFTER 48 HOURS Complete Laboratory Tests Test 07/19/18 04:08 07/19/18 08:05 White Blood Count 21.8 K/UL (4.8-10.8) H Red Blood Count 3.18 M/UL (4.70-6.10) L Hemoglobin 11.1 G/DL (14.2-18.0) L Hematocrit 32.2 % (42.0-52.0) L Mean Corpuscular Volume 102 FL (80-99) H Mean Corpuscular Hemoglobin 35.0 PG (27.0-31.0) H Mean Corpuscular Hemoglobin Concent 34.5 G/DL (32.0-36.0) Red Cell Distribution Width 14.0 % (11.6-14.8) Platelet Count 692 K/UL (150-450) H Mean Platelet Volume 6.4 FL (6.5-10.1) L Neutrophils (%) (Auto) % (45.0-75.0) Lymphocytes (%) (Auto) % (20.0-45.0) Monocytes (%) (Auto) % (1.0-10.0) Eosinophils (%) (Auto) % (0.0-3.0) Basophils (%) (Auto) % (0.0-2.0) Differential Total Cells Counted 100 Neutrophils % (Manual) 90 % (45-75) H Lymphocytes % (Manual) 6 % (20-45) L Monocytes % (Manual) 4 % (1-10) Eosinophils % (Manual) 0 % (0-3) Basophils % (Manual) 0 % (0-2) Band Neutrophils 0 % (0-8) Platelet Estimate Increased H Platelet Morphology Normal Macrocytosis 1+ Prothrombin Time 11.5 SEC (9.30-11.50) Prothromb Time International Ratio 1.1 (0.9-1.1) Activated Partial Thromboplast Time 28 SEC (23-33) Sodium Level 142 MMOL/L (136-145) Potassium Level 3.6 MMOL/L (3.5-5.1) Chloride Level 107 MMOL/L (98-107) Carbon Dioxide Level 25 MMOL/L (21-32) Anion Gap 10 mmol/L (5-15) Blood Urea Nitrogen 12 mg/dL (7-18) Creatinine 0.8 MG/DL (0.55-1.30) Estimat Glomerular Filtration Rate > 60 mL/min (>60) Glucose Level 114 MG/DL (74-106) H Calcium Level 8.4 MG/DL (8.5-10.1) L Phosphorus Level 2.6 MG/DL (2.5-4.9) Magnesium Level 2.4 MG/DL (1.8-2.4) Total Bilirubin 0.4 MG/DL (0.2-1.0) Aspartate Amino Transf (AST/SGOT) 60 U/L (15-37) H Alanine Aminotransferase (ALT/SGPT) 52 U/L (12-78) Alkaline Phosphatase 75 U/L (46-116) Total Protein 7.9 G/DL (6.4-8.2) Albumin 1.9 G/DL (3.4-5.0) L Globulin 6.0 g/dL Albumin/Globulin Ratio 0.3 (1.0-2.7) L Lipase > 2000 U/L (73-393) H Urine Color Yellow Urine Appearance Clear Urine pH 6 (4.5-8.0) Urine Specific [place] 1.015 (1.005-1.035) Urine Protein 3+ (NEGATIVE) H Urine Glucose (UA) Negative (NEGATIVE) Urine Ketones 1+ (NEGATIVE) H Urine Blood 3+ (NEGATIVE) H Urine Nitrite Negative (NEGATIVE) Urine Bilirubin Negative (NEGATIVE) Urine Urobilinogen Normal MG/DL (0.0-1.0) Urine Leukocyte Esterase 1+ (NEGATIVE) H Urine RBC 5-10 /HPF (0 - 0) H Urine WBC 2-4 /HPF (0 - 0) Urine Squamous Epithelial Cells Occasional /LPF Urine Bacteria Few /HPF (NONE) Urine Yeast Few /HPF (NONE) H Current Medications Medications (Trade) Dose Ordered Sig/[place] Route PRN Reason Start Time Stop Time Status Last Admin Dose Admin Acetaminophen (Tylenol) 650 mg Q4H PRN RECTAL Prn for Temp >100.5 07/15/18 17:30 08/14/18 17:29 07/18/18 20:11 Al Hydroxide/Mg Hydroxide (Mylanta) 15 ml Q6H PRN ORAL DYSPEPSIA 07/13/18 03:00 08/11/18 20:59 Albuterol/ Ipratropium (Albuterol/ Ipratropium) 3 ml Q4H PRN HHN Shortness of Breath 07/15/18 11:45 07/20/18 11:44 Albuterol/ Ipratropium (Albuterol/ Ipratropium) 3 ml Q6HRT HHN 07/17/18 19:00 07/22/18 18:59 07/19/18 13:50 Amlodipine Besylate (Norvasc) 10 mg DAILY ORAL 07/13/18 09:00 08/04/18 13:48 07/19/18 08:44 Chlorhexidine Gluconate (Estrella-Hex 2%) 1 applic DAILY@2000 TOPIC 07/16/18 20:00 08/15/18 19:59 07/18/18 20:10 Clonidine HCl (Catapres Tab) 0.1 mg Q8H PRN ORAL hypertension 07/12/18 23:45 08/04/18 15:37 Dextrose (Dextrose 50%) 25 ml Q30M PRN IV Hypoglycemia 07/18/18 00:00 08/17/18 00:00 Dextrose (Dextrose 50%) 50 ml Q30M PRN IV hypoglycemia 07/18/18 00:00 08/17/18 00:00 Diphenhydramine HCl (Benadryl) 12.5 mg Q6H PRN IVP Itching/Pruritis 07/13/18 03:00 08/11/18 20:59 07/15/18 17:47 Docusate Sodium (Colace) 100 mg TWICE A DAY NG 07/14/18 09:00 08/12/18 08:59 07/18/18 08:10 Fat Emulsion Intravenous 192 ml/Amino Acids/ Electrolytes/ Dextrose 1,872 ml @ 78 mls/hr Q24H IV 07/17/18 20:00 08/16/18 19:59 07/18/18 20:10 Fluconazole/ Sodium Chloride 200 ml @ 200 mls/hr Q24H IV 07/18/18 16:30 07/25/18 16:29 07/18/18 16:48 Heparin Sodium (Porcine) (Heparin 5000 units/ml) 5,000 units Q12HR SUBQ 07/13/18 09:00 08/02/18 08:59 07/19/18 08:46 Hydromorphone HCl (Dilaudid) 0.5 mg Q3H PRN IVP Pain Score 1-3 07/13/18 00:00 07/19/18 20:59 07/14/18 02:39 Hydromorphone HCl (Dilaudid) 1 mg Q3H PRN IVP pain score 4-6 07/13/18 00:00 07/19/18 20:59 07/15/18 05:29 Hydromorphone HCl (Dilaudid) 2 mg Q3H PRN IVP pain score 7-10 07/13/18 00:00 07/19/18 20:59 07/17/18 02:19 Insulin Aspart (NovoLOG) No Dose Q6HR SUBQ 07/18/18 00:00 08/17/18 00:00 07/19/18 12:29 Lactulose (Cephulac) 30 gm THREE TIMES A DAY ORAL 07/18/18 13:00 08/17/18 12:59 07/19/18 12:25 Lorazepam (Ativan 2mg/ml 1ml) 1 mg Q1HR PRN IV For Anxiety 07/12/18 22:00 07/19/18 20:59 07/18/18 22:35 Magnesium Hydroxide (Mom) 30 ml BIDPRN PRN ORAL Constipation 07/13/18 21:00 08/11/18 20:59 Meropenem 1 gm/ Sodium Chloride 100 ml @ 200 mls/hr Q8HR IVPB 07/18/18 16:00 07/23/18 15:59 07/19/18 13:19 Metoprolol Tartrate (Lopressor) 25 mg DAILY NG 07/14/18 20:30 08/13/18 20:29 07/19/18 08:44 Nicotine (Nicoderm) 1 patch Q24H TDERMAL 07/13/18 18:00 08/08/18 17:59 07/18/18 20:09 Norepinephrine Bitartrate 4 mg/ Dextrose 250 ml @ 0 mls/hr Q24H IV 07/13/18 21:00 08/11/18 20:59 Ondansetron HCl (Zofran) 4 mg Q6H PRN IVP Nausea & Vomiting 07/13/18 03:45 08/01/18 15:38 07/16/18 12:50 Pantoprazole (Protonix) 40 mg EVERY 12 HOURS IVP 07/13/18 09:00 08/09/18 20:59 07/19/18 08:43 Phytonadione (Vitamin K) 10 mg QWEEK SUBQ 07/24/18 20:00 08/23/18 19:59 Vancomycin HCl (Vanco rx to dose) 1 ea DAILY PRN MISC Per rx protocol 07/18/18 15:15 08/17/18 15:14 Vancomycin HCl/ Dextrose 250 ml @ 166.667 mls/hr Q12H IVPB 07/18/18 21:00 07/23/18 20:59 07/19/18 09:47 Tyler Madsen MD Jul 19, 2018 14:37
--- NOTE | 2018-07-19 16:12 | NUR ---
NURSE NOTES: abd surgical wound was changed, dry and clean. pt tolerated well.
--- NOTE | 2018-07-19 17:45 | NUR ---
NURSE NOTES: Report received from JAVIER Moreno. Observed pt lying on the bed. Alert and oriented x2. ST with personnel monitor with HR of 110s. NC with 3L, saturating at 99%. NGT at L nares, locked. F/C intact and draining well. JUNE drainage bag with dark red discharge. Surgical site on R upper abdomen and below belly noted. PICC on L UA, running TPN at 78cc/hr. Bed in the lowest position. Side rails up x3. Will continue to monitor. Addendum: 07/20/18 at 0321 by Canelo Shah RN Wrong time.
--- NOTE | 2018-07-19 17:45 | NUR ---
HAND-OFF: Report given to JAVIER Moreno.
--- NOTE | 2018-07-19 18:14 | NUR ---
TRANSFER TO FLOOR: Patient transferred to [facility]. Report given to JAVIER dougherty. Belongings and medications given to primary nurse. pt's , , informed of transfer.
[2018-07-19] MEDS ORDERED: HYDROmorphone 1mg/ml Carpuject IVP PRN (19:00)
[2018-07-19] MEDS ORDERED: Milk of Magnesia 30ml Ud NG PRN (19:00)
[2018-07-19] MEDS ORDERED: Acetaminophen 650 MG SUPP RECTAL PRN (19:00)
[2018-07-19] MEDS ORDERED: DiphenhydrAMINE 50mg/ml Inj IVP PRN (19:00)
[2018-07-19] MEDS ORDERED: Albuterol/Ipratropium 3ml neb HHN PRN (19:00)
[2018-07-19] MEDS ORDERED: LORazepam Inj 2mg/ml 1ml IV PRN (19:00)
[2018-07-19] MEDS ORDERED: Hydromorphone 0.5mg/0.5ml inj IVP PRN (19:00)
--- NOTE | 2018-07-19 19:36 | NUR ---
HAND-OFF: Report given to Chris Shah RN.
--- NOTE | 2018-07-19 19:40 | NUR ---
NURSE NOTES: Report received from JAVIER Moreno. Observed pt lying on the bed. Alert and oriented x2. ST with monitoring and evaluation advisor with HR of 110s. NC with 3L, saturating at 99%. NGT at L nares, locked. F/C intact and draining well. JUNE drainage bag with dark red discharge. Surgical site on R upper abdomen and below belly noted. PICC on L UA, running TPN at 78cc/hr. Bed in the lowest position. Side rails up x3. Will continue to monitor.
--- NOTE | 2018-07-19 20:16 | General Progress Note ---
Assessment/Plan Assessment/Plan Anemia of chronic disease (or of iron deficiency) due to underlying chronic medical issues, multifactorial --> Anemia workup has been ordered --> No evidence of hemolysis is noted, peripheral smear has been reviewed. --> Hgb goal >7. Transfuse prn. --> Epogen or iron at this time is not particularly indicated --> Medications have been reviewed # Thrombocytopenia is likely related to underlying reactive processs from pancreatitis, acute, as well as alcoholic intoxication and myelosuppression --> also patient has a history of hepatitis C from prior admission --> smear has been reviewed --> heparin sq is okay if needed for dvt ppx # Erythrocytosis is likely related to dehydration --> hgb goal >7, no evidence of bleeding currently --> given ivf already # Leukocytosis no e/o annie infection --> could be due to reactive process v cholecystitis --> wbc trend: 22-->18-->16-->14 --> peripheral smear has been reviewed --> ercp tomorrow per surg/gi # Pancreatitis with alcohol abuse --> recommend etoh cessation --> amylase and lipase prn -->Status post ERCP with sphincterotomy # Transaminitis --> likely related to etoh abuse --> in past seen by gi # Alcohol abuse -- recommend cessation The timing of this note does not necessarily reflect the time of the patient was seen Greatly appreciate consultation! Subjective Constitutional: Denies: no symptoms, chills, diaphoresis, fever, malaise, weakness, other HEENT: Denies: no symptoms, eye pain, blurred vision, tearing, double vision, ear pain, ear discharge, nose pain, nose congestion, throat pain, throat swelling, mouth pain, mouth swelling, other Cardiovascular: Denies: no symptoms, chest pain, edema, irregular heart rate, lightheadedness, palpitations, syncope, other Respiratory: Denies: no symptoms, cough, orthopnea, shortness of breath, SOB with excertion, SOB at rest, sputum, stridor, wheezing, other Gastrointestinal/Abdominal: Denies: no symptoms, abdomen distended, abdominal pain, black stools, tarry stools, blood in stool, constipated, diarrhea, difficulty swallowing, nausea, poor appetite, poor fluid intake, rectal bleeding , vomiting, other Genitourinary: Denies: no symptoms, burning, discharge, frequency, flank pain, hematuria, incontinence, pain, urgency, other Neurologic/Psychiatric: Denies: no symptoms, anxiety, depressed, emotional problems, headache, numbness, paresthesia, pre-existing deficit, seizure, tingling, tremors, weakness, other Endocrine: Denies: no symptoms, excessive sweating, flushing, intolerance to cold, intolerance to heat, increased hunger, increased thirst, increased urine, unexplained weight gain, unexplained weight loss, other Hematologic/Lymphatic: Denies: no symptoms, anemia, easy bleeding, easy bruising, other Allergies: Coded Allergies: No Known Allergies (Unverified , 06/01/16) Subjective 07/05: bp was high today and dc was cancelled until tomorow, on librium 07/06: wbc was high though other counts are better, no f/c 07/10: seen by bedside, heart rate increased, appears agitated, wbc 13.9 07/11: to get ercp tomorrow, surgery and gi following 07/12 ercp, sphincterotomy, stent placement surgery done today, currently having tremors and tachy. wbc 15.9, hgb 14, plt 429 07/13: Pt is intubated, seen by bedside,wbc 22, on abx, no acute distress 07/14: awake and comfortable, still intubated on vent, labs noted hb trending down, wbc 18, hgb 8. 07/16: seen by bedside, awake, comfortable, wbc 14, hgb 9, plt 613 07/17: awake, comfortable, status post ERCP with sphincterotomy wbc 21, hgb 10, plt 689. 07/18; seen by bedside, awake comfortable, on venturi mask, wbc 23, plt 754. 07/19: seen by bedside, awake and comfortable, no events, wbc 21 Objective Last 24 Hour Vital Signs Date Time Temp Pulse Resp B/P (MAP) Pulse Ox O2 Delivery O2 Flow Rate FiO2 07/19/18 17:00 104 23 123/74 76 Nasal Cannula 3.0 07/19/18 16:00 98.6 104 25 115/73 99 Nasal Cannula 3.0 07/19/18 16:00 104 07/19/18 16:00 Nasal Cannula 3.0 Venturi Mask 07/19/18 15:00 107 28 110/70 92 Nasal Cannula 3.0 07/19/18 14:00 117 24 100 Nasal Cannula 3.0 32 07/19/18 14:00 111 29 117/71 95 Nasal Cannula 3.0 07/19/18 13:50 102 24 97 Nasal Cannula 3.0 07/19/18 13:00 96 27 110/69 98 Nasal Cannula 3.0 07/19/18 12:00 108 07/19/18 12:00 98.7 102 25 110/70 98 Nasal Cannula 3.0 07/19/18 12:00 Nasal Cannula 3.0 Venturi Mask 07/19/18 11:00 110 18 120/77 100 Nasal Cannula 3.0 07/19/18 10:00 105 24 116/73 99 Nasal Cannula 3.0 07/19/18 09:00 112 29 109/72 99 Nasal Cannula 3.0 07/19/18 08:44 117 110/74 07/19/18 08:44 117 110/74 07/19/18 08:00 Nasal Cannula 3.0 Venturi Mask 07/19/18 08:00 121 07/19/18 08:00 99.1 121 30 110/74 96 Nasal Cannula 3.0 07/19/18 07:46 112 25 98 Nasal Cannula 3.0 32 07/19/18 07:36 108 26 98 Nasal Cannula 3.0 07/19/18 07:34 97 Nasal Cannula 3.0 07/19/18 07:33 Nasal Cannula 3.0 07/19/18 07:00 116 26 120/70 100 Nasal Cannula 3.0 07/19/18 06:00 116 24 120/70 97 Nasal Cannula 4.0 07/19/18 05:00 99.4 109 28 106/67 97 Nasal Cannula 4.0 07/19/18 04:00 110 07/19/18 04:00 Nasal Cannula 3.0 Venturi Mask 07/19/18 04:00 111 30 112/74 96 Nasal Cannula 4.0 07/19/18 04:00 113 07/19/18 03:00 97 26 113/71 98 Nasal Cannula 4.0 07/19/18 02:00 114 27 127/76 93 Nasal Cannula 4.0 07/19/18 01:00 118 27 128/78 99 Nasal Cannula 4.0 07/19/18 00:50 117 26 99 Nasal Cannula 3.0 32 07/19/18 00:41 109 23 97 Venturi Mask 10.0 45 07/19/18 00:00 112 24 128/78 100 Nasal Cannula 4.0 07/19/18 00:00 Venturi Mask 8.0 Venturi Mask 07/19/18 00:00 90 07/18/18 23:00 111 26 113/73 98 07/18/18 22:27 99.5 07/18/18 22:00 111 23 137/83 97 Venturi Mask 45 07/18/18 21:00 120 22 141/74 97 Venturi Mask 45 Intake and Output 07/18/18 07/19/18 19:00 07:00 Intake Total 1035.0 ml 805.000 ml Output Total 1655 ml 2550 ml Balance -620.0 ml -1745.000 ml IV Total 1035.0 ml 805.000 ml Output Urine Total 1655 ml 2525 ml Drainage Total 25 ml # Bowel Movements 7 3 Laboratory Tests 07/19/18 04:08: White Blood Count 21.8H, Red Blood Count 3.18L, Hemoglobin 11.1L, Hematocrit 32.2L, Mean Corpuscular Volume 102H, Mean Corpuscular Hemoglobin 35.0H, Mean Corpuscular Hemoglobin Concent 34.5, Red Cell Distribution Width 14.0, Platelet Count 692H, Mean Platelet Volume 6.4L, Neutrophils (%) (Auto) , Lymphocytes (%) (Auto) , Monocytes (%) (Auto) , Eosinophils (%) (Auto) , Basophils (%) (Auto) , Differential Total Cells Counted 100, Neutrophils % (Manual) 90H, Lymphocytes % (Manual) 6L, Monocytes % (Manual) 4, Eosinophils % (Manual) 0, Basophils % ( Manual) 0, Band Neutrophils 0, Platelet Estimate IncreasedH, Platelet Morphology Normal, Macrocytosis 1+, Prothrombin Time 11.5, Prothromb Time International Ratio 1.1, Activated Partial Thromboplast Time 28, Sodium Level 142, Potassium Level 3.6, Chloride Level 107, Carbon Dioxide Level 25, Anion Gap 10, Blood Urea Nitrogen 12, Creatinine 0.8, Estimat Glomerular Filtration Rate > 60, Glucose Level 114H, Calcium Level 8.4L, Phosphorus Level 2.6, Magnesium Level 2.4, Total Bilirubin 0.4, Aspartate Amino Transf (AST/SGOT) 60H , Alanine Aminotransferase (ALT/SGPT) 52, Alkaline Phosphatase 75, Total Protein 7.9, Albumin 1.9L, Globulin 6.0, Albumin/Globulin Ratio 0.3L, Lipase > 2000H 07/19/18 08:05: Urine Color Yellow, Urine Appearance Clear, Urine pH 6, Urine Specific [place] 1.015, Urine Protein 3+H, Urine Glucose (UA) Negative, Urine Ketones 1+H, Urine Blood 3+H, Urine Nitrite Negative, Urine Bilirubin Negative, Urine Urobilinogen Normal, Urine Leukocyte Esterase 1+H, Urine RBC 5-10H, Urine WBC 2-4, Urine Squamous Epithelial Cells Occasional, Urine Bacteria Few, Urine Yeast FewH Height (Feet): 5 Height (Inches): 9.00 Weight (Pounds): 160 Objective Physical Exam General Appearance: A+O x3, NAD HEENT: normocephalic, atraumatic Neck: non-tender, normal alignment Respiratory/Chest: chest wall non-tender, lungs clear Cardiovascular/Chest: normal peripheral pulses, normal rate Abdomen: normal bowel sounds, non tender Extremities: normal range of motion Guy Salazar MD Jul 19, 2018 20:16
[2018-07-19] MEDS: TPN IV SCH (20:18)
[2018-07-19] MEDS: FAT EMULSION 20% IV SCH (20:18)
[2018-07-19] MEDS: Dyna-Hex 2% Top Sol 2oz TOPIC SCH (20:19)
[2018-07-19] MEDS: VANCOMYCIN IVPB SCH (22:19)
[2018-07-20] VITALS: BP 132/78
[2018-07-20] MEDS: NovoLOG Insulin Flexpen SUBQ SCH ×5 (00:19→23:26)
[2018-07-20] MEDS: Albuterol/Ipratropium 3ml neb HHN SCH ×4 (00:29→19:23)
--- NOTE | 2018-07-20 02:00 | NUR ---
NURSE NOTES: Abd surgical site dressing changed. JUNE drainage bag emptied. Oral care done. No signs of pain noted at this time. No signs of SOB, saturating at 96% with NC O2 3L. Will continue to monitor.
[2018-07-20 04:00] VITALS: BP 121/74
--- NOTE | 2018-07-20 07:41 | NUR ---
HAND-OFF: Report given to JAVIER Gomez. No acute distress noted at this time.
--- NOTE | 2018-07-20 07:45 | General Progress Note ---
Assessment/Plan Assessment/Plan #Sepsis #Acute purulent gangrenous cholecystitis. #klebsiella cholecystitis #acute Hypoxic respiratory failure #Acute Metabolic Encephalopathy - due to alcohol withdrawal and sepsis - meropenem, vancomycin and diflucan - bcx x 2 ngtd - s/p ercp 07/12 - gen surg consulted, s/p lap jocelyn converted to open jocelyn 07/12 - extubated on 07/16.19 - off o2 ncl - pulm consult appreciated - pain control - appreciate surg recs - fluids - tube feeds #Acute Blood Loss Anemia - due to recent surgery - no overt bleeding noted currently - hgb 6.8 07/15, transfused 2U, 9.7 (07/16) - stable #Pleural Effusions - b/l - per mrcp - stable - pulm consult apprecaited #Alcohol Pancreatitis #Intractable abdominal pain #intractable nausea/vomiting #Transaminitis #Alcohol Hepatitis #Alcohol withdrawals #Fatty Liver Disease #Hepatitis C - LFTs 446/532 - Lipase 687 - due to alcohol abuse - INR 1.0 - discriminant function, 4.5 , no need for steroids - US abd completed and reviewed, showing fatty liver disease. GS present, no obstruction noted - ppi - PRN antiemetics, zofran prn - Banana bag - close lab monitoring - IVF - monitor carefully for withdrawals - tube feeds held due to worsening pancreatitis - TPN - Per GI, will need ERCP in 6-8 weeks for stent removal #Failure to thrive - due to alcohol withdrawals and the above - alcoholic pancreatitis - fluids #Alcohol Abuse - educated on cessation for 15 mins - patient states he understands and will try to quit - RN notified to monitor carefully with withdrawals - prn ativan - ciwa #Uncontrolled HTN - clonidine 0.1 mg po prn - amlodipine 10mg qday - due to withdrawals #Tobacco abuse - smokes 1ppd - educated on smoking cessation for over 15 mins, states he understands the risks of smoking and will try to quit diet: NPO DVT Prophylaxis: SCD, HSQ Code Status: Full Hospital Classification Declaration: Based on this initial evaluation, and depending on the patient's clinical course, I anticipate that this patient will require hospitalization for 2-3days for alcohol abuse, pancreatitis and close respiratory/hemodynamic monitoring. I have reviewed all labs, imaging and medications Disposition: Once the patient is stable to leave the hospital, I anticipate the patient will likely be discharged to the following environment: home I spent over 43 minutes on this patient's case, and over 50% of that time was spent on counseling and/or care . Discussed with patient/family, nursing staff , SW/CM regarding clinical status, treatment course, and disposition planning. Time of note may not reflect time of encounter. ------- Date of Discussion: 07/03/18 A [id number] discussion with the patient regarding the patient's advanced care planning took place during this hospitalization on the above date. The discussion included the explanation and discussion of advance directives and associated forms/documents, as well as the patient's current code status. We also discussed at length the patient's medical conditions (both acute and chronic), general prognosis, treatment options, and goals of care. The following summarizes the discussion: Advance Care Planning/Goals of Care: - Will attempt to fill out an AD and/or POLST with the patient prior to discharge, if not already completed - Continue current evaluation and management of any acute and chronic medical issues - Will continue to support the patient/family - Will continue to discuss both short- and long-term goals of care DPOA-HC/Surrogate Decision Maker: : Bonnie Crenshaw Code Status: Full Code AD Forms/Documents Completed: Deferred A total of 34 minutes was spent on this discussion, including counseling, answering questions, and completing, if any, pertinent advanced care planning forms/documents. Subjective Date patient seen: Jul 20, 2018 Time patient seen: 07:43 Allergies: Coded Allergies: No Known Allergies (Unverified , 06/01/16) Subjective f/u pancreatitis, cholecystitis, sepsis, alcoholic hepatitis, nausea, alcohol abuse, alcohol withdrawals s/p ercp 07/12 and subsequent open jocelyn, full of pus, gangrenous jocelyn, drain left in extubated 07/16 transferred out of the icu yesterday afternoon TF stable improving slowly awake ROS: 14 point ROS reviewed and negative except per above Objective Last 24 Hour Vital Signs Date Time Temp Pulse Resp B/P (MAP) Pulse Ox O2 Delivery O2 Flow Rate FiO2 07/20/18 07:37 Nasal Cannula 3.0 32 07/20/18 07:37 105 22 98 Nasal Cannula 3.0 32 07/20/18 07:37 Nasal Cannula 3.0 32 07/20/18 04:00 97.9 111 24 121/74 (90) 97 07/20/18 04:00 Nasal Cannula 3.0 Venturi Mask 07/20/18 03:44 110 07/20/18 00:43 110 24 97 Nasal Cannula 3.0 32 07/20/18 00:29 107 27 96 Nasal Cannula 3.0 32 07/20/18 00:00 Nasal Cannula 3.0 Venturi Mask 07/20/18 00:00 96.6 116 24 132/78 (96) 97 07/19/18 23:54 114 07/19/18 20:50 100.0 07/19/18 20:36 94 Nasal Cannula 3.0 32 07/19/18 20:36 120 27 100 Nasal Cannula 3.0 32 07/19/18 20:36 Nasal Cannula 3.0 32 07/19/18 20:36 120 27 94 Nasal Cannula 3.0 32 07/19/18 20:00 100.0 114 25 124/80 (95) 99 07/19/18 20:00 Nasal Cannula 3.0 Venturi Mask 07/19/18 19:25 112 07/19/18 17:00 104 23 123/74 76 Nasal Cannula 3.0 07/19/18 16:00 98.6 104 25 115/73 99 Nasal Cannula 3.0 07/19/18 16:00 104 07/19/18 16:00 Nasal Cannula 3.0 Venturi Mask 07/19/18 15:00 107 28 110/70 92 Nasal Cannula 3.0 07/19/18 14:00 117 24 100 Nasal Cannula 3.0 32 07/19/18 14:00 111 29 117/71 95 Nasal Cannula 3.0 07/19/18 13:50 102 24 97 Nasal Cannula 3.0 07/19/18 13:00 96 27 110/69 98 Nasal Cannula 3.0 07/19/18 12:00 108 07/19/18 12:00 98.7 102 25 110/70 98 Nasal Cannula 3.0 07/19/18 12:00 Nasal Cannula 3.0 Venturi Mask 07/19/18 11:00 110 18 120/77 100 Nasal Cannula 3.0 07/19/18 10:00 105 24 116/73 99 Nasal Cannula 3.0 07/19/18 09:00 112 29 109/72 99 Nasal Cannula 3.0 07/19/18 08:44 117 110/74 07/19/18 08:44 117 110/74 07/19/18 08:00 Nasal Cannula 3.0 Venturi Mask 07/19/18 08:00 121 07/19/18 08:00 99.1 121 30 110/74 96 Nasal Cannula 3.0 07/19/18 07:46 112 25 98 Nasal Cannula 3.0 32 Intake and Output 07/19/18 07/20/18 18:59 06:59 Intake Total 2243.000 ml 1230.000 ml Output Total 950 ml 930 ml Balance 1293.000 ml 300.000 ml Intake Oral 78 ml Free Water 50 ml IV Total 2115.000 ml 1230.000 ml Tube Feeding 0 ml Output Urine Total 950 ml 850 ml Drainage Total 80 ml # Bowel Movements 2 3 Laboratory Tests 07/19/18 08:05: Urine Color Yellow, Urine Appearance Clear, Urine pH 6, Urine Specific [place] 1.015, Urine Protein 3+H, Urine Glucose (UA) Negative, Urine Ketones 1+H, Urine Blood 3+H, Urine Nitrite Negative, Urine Bilirubin Negative, Urine Urobilinogen Normal, Urine Leukocyte Esterase 1+H, Urine RBC 5-10H, Urine WBC 2-4, Urine Squamous Epithelial Cells Occasional, Urine Bacteria Few, Urine Yeast FewH Height (Feet): 5 Height (Inches): 9.00 Weight (Pounds): 160 Objective General Appearance: alert, stable, awake Lines, tubes and drains: peripheral HEENT: normocephalic, atraumatic, anicteric, PERRL Neck: non-tender, normal alignment Respiratory/Chest: chest wall non-tender, mechanical breath sounds, no respiratory distress, no accessory muscle use Cardiovascular/Chest: normal peripheral pulses, normal rate, regular rhythm Abdomen: normal bowel sounds, soft, no organomegaly, no mass, drain in place, Extremities: normal range of motion, non-tender, normal inspection, no calf tenderness, normal capillary refill, non-pitting. +asterixis Skin Exam: normal pigmentation, warm/dry Neurologic: no motor/sensory deficits, alert, oriented x 3, responsive, normal mood/affect Eulogio Siddiqi MD Jul 20, 2018 07:45
[2018-07-20 08:00] VITALS: BP 125/78
[2018-07-20 08:19] LABS: HEMATOCRIT 37.6 % (42.0-52.0); HEMOGLOBIN 12.5 G/DL (14.2-18.0); MEAN CORPUSCULAR VOLUME 103 FL (80-99); PLATELET COUNT 661 K/UL (150-450); RED BLOOD COUNT 3.64 M/UL (4.70-6.10); RED CELL DISTRIBUTION WIDTH 14.1 % (11.6-14.8); WHITE BLOOD COUNT 18.9 K/UL (4.8-10.8)
[2018-07-20 08:34] LABS: ALANINE AMINOTRANSFERASE 73 U/L (12-78); ALBUMIN/GLOBULIN RATIO 0.3 (1.0-2.7); ALKALINE PHOSPHATASE 103 U/L (46-116); ANION GAP 11 mmol/L (5-15); ASPARTATE AMINO TRANSFERASE 86 U/L (15-37); BILIRUBIN,TOTAL 0.6 MG/DL (0.2-1.0); BLOOD UREA NITROGEN 17 mg/dL (7-18); CARBON DIOXIDE 25 MMOL/L (21-32); CHLORIDE 108 MMOL/L (98-107); CHOLESTEROL 118 MG/DL (< 200); CREATININE 0.8 MG/DL (0.55-1.30); HDL CHOLESTEROL 16 MG/DL (40-60); POTASSIUM 3.7 MMOL/L (3.5-5.1); SODIUM 143 MMOL/L (136-145); TRIGLYCERIDES 133 MG/DL (30-150)
[2018-07-20] MEDS: Lactulose 20gm/30ml UDC NG SCH ×3 (09:47→17:56)
[2018-07-20] MEDS: Pantoprazole Inj IVP SCH ×2 (09:48→20:04)
[2018-07-20] MEDS: Metoprolol 25mg tab NG SCH (09:48)
[2018-07-20] MEDS: Docusate 100mg/10ml Liq NG SCH ×2 (09:48→17:56)
[2018-07-20] MEDS: Heparin 5000 units/ml inj SUBQ SCH ×2 (09:52→20:06)
[2018-07-20] MEDS: VANCOMYCIN IVPB SCH (10:58)
--- NOTE | 2018-07-20 11:40 | GI Progress Note ---
Assessment/Plan Problems: (1) Abnormal LFTs ICD Codes: R79.89 - Other specified abnormal findings of blood chemistry SNOMED: 021496465 (2) Cholecystitis, acute ICD Codes: K81.0 - Acute cholecystitis SNOMED: 87016211 (3) Hepatitis C ICD Codes: B19.20 - Unspecified viral hepatitis C without hepatic coma SNOMED: 38649630 (4) Fatty liver ICD Codes: K76.0 - Fatty (change of) liver, not elsewhere classified SNOMED: 879496535 (5) Alcoholic pancreatitis ICD Codes: K85.20 - Alcohol induced acute pancreatitis without necrosis or infection SNOMED: 378673367 (6) Pancreatitis, acute ICD Codes: K85.90 - Acute pancreatitis without necrosis or infection, unspecified SNOMED: 339389879 Status: unchanged Status Narrative Discussed with Dr. Yip. Assessment/Plan SUMMARY OF FINDINGS: 1. 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 2. Status post ERCP with sphincterotomy, balloon assistance sludge and some pus extraction from the common bile duct and then stent placement. s/p open jocelyn, now in ICU with pancreatitis hepatitis C positive Pancreatitis RECOMMENDATIONS: follow up surgical recommendations Maintain n.p.o. with IV fluids given elevated lipase levels, continue TPN prn transfusions trend lipase fu labs The patient will need repeat ERCP in 6 to 8 weeks for stent removal. outpatient Hep C tx The patient was seen and examined at bedside and all new and available data was reviewed in the patients chart. I agree with the above findings, impression and plan. (Patient seen earlier today. Signature stamp does not reflect patient encounter time.). - Toñito Yip MD Subjective Subjective limited Objective Last 24 Hour Vital Signs Date Time Temp Pulse Resp B/P (MAP) Pulse Ox O2 Delivery O2 Flow Rate FiO2 07/20/18 09:48 107 125/78 07/20/18 09:48 107 125/78 07/20/18 08:00 Nasal Cannula 3.0 Venturi Mask 07/20/18 08:00 100.2 107 28 125/78 (94) 97 07/20/18 07:47 105 18 100 Nasal Cannula 3.0 32 07/20/18 07:37 Nasal Cannula 3.0 32 07/20/18 07:37 106 07/20/18 07:37 105 22 98 Nasal Cannula 3.0 32 07/20/18 07:37 Nasal Cannula 3.0 32 07/20/18 04:00 97.9 111 24 121/74 (90) 97 07/20/18 04:00 Nasal Cannula 3.0 Venturi Mask 07/20/18 03:44 110 07/20/18 00:43 110 24 97 Nasal Cannula 3.0 32 07/20/18 00:29 107 27 96 Nasal Cannula 3.0 32 07/20/18 00:00 Nasal Cannula 3.0 Venturi Mask 07/20/18 00:00 96.6 116 24 132/78 (96) 97 07/19/18 23:54 114 07/19/18 20:50 100.0 07/19/18 20:36 94 Nasal Cannula 3.0 32 07/19/18 20:36 120 27 100 Nasal Cannula 3.0 32 07/19/18 20:36 Nasal Cannula 3.0 32 07/19/18 20:36 120 27 94 Nasal Cannula 3.0 32 07/19/18 20:00 100.0 114 25 124/80 (95) 99 07/19/18 20:00 Nasal Cannula 3.0 Venturi Mask 07/19/18 19:25 112 07/19/18 17:00 104 23 123/74 76 Nasal Cannula 3.0 07/19/18 16:00 98.6 104 25 115/73 99 Nasal Cannula 3.0 07/19/18 16:00 104 07/19/18 16:00 Nasal Cannula 3.0 Venturi Mask 07/19/18 15:00 107 28 110/70 92 Nasal Cannula 3.0 07/19/18 14:00 117 24 100 Nasal Cannula 3.0 32 07/19/18 14:00 111 29 117/71 95 Nasal Cannula 3.0 07/19/18 13:50 102 24 97 Nasal Cannula 3.0 07/19/18 13:00 96 27 110/69 98 Nasal Cannula 3.0 07/19/18 12:00 108 07/19/18 12:00 98.7 102 25 110/70 98 Nasal Cannula 3.0 07/19/18 12:00 Nasal Cannula 3.0 Venturi Mask Intake and Output 07/19/18 07/20/18 19:00 07:00 Intake Total 2165.000 ml 1230.000 ml Output Total 850 ml 930 ml Balance 1315.000 ml 300.000 ml Intake Oral 78 ml Free Water 50 ml IV Total 2037.000 ml 1230.000 ml Tube Feeding 0 ml Output Urine Total 850 ml 850 ml Drainage Total 80 ml # Bowel Movements 2 3 Laboratory Tests Test 07/20/18 08:04 White Blood Count 18.9 K/UL (4.8-10.8) H Red Blood Count 3.64 M/UL (4.70-6.10) L Hemoglobin 12.5 G/DL (14.2-18.0) L Hematocrit 37.6 % (42.0-52.0) L Mean Corpuscular Volume 103 FL (80-99) H Mean Corpuscular Hemoglobin 34.3 PG (27.0-31.0) H Mean Corpuscular Hemoglobin Concent 33.2 G/DL (32.0-36.0) Red Cell Distribution Width 14.1 % (11.6-14.8) Platelet Count 661 K/UL (150-450) H Mean Platelet Volume 6.4 FL (6.5-10.1) L Neutrophils (%) (Auto) % (45.0-75.0) Lymphocytes (%) (Auto) % (20.0-45.0) Monocytes (%) (Auto) % (1.0-10.0) Eosinophils (%) (Auto) % (0.0-3.0) Basophils (%) (Auto) % (0.0-2.0) Differential Total Cells Counted 100 Neutrophils % (Manual) 89 % (45-75) H Lymphocytes % (Manual) 3 % (20-45) L Monocytes % (Manual) 4 % (1-10) Eosinophils % (Manual) 2 % (0-3) Basophils % (Manual) 0 % (0-2) Band Neutrophils 2 % (0-8) Platelet Estimate Increased H Platelet Morphology Normal Macrocytosis 1+ Prothrombin Time 10.7 SEC (9.30-11.50) Prothromb Time International Ratio 1.0 (0.9-1.1) Activated Partial Thromboplast Time 27 SEC (23-33) Sodium Level 143 MMOL/L (136-145) Potassium Level 3.7 MMOL/L (3.5-5.1) Chloride Level 108 MMOL/L (98-107) H Carbon Dioxide Level 25 MMOL/L (21-32) Anion Gap 11 mmol/L (5-15) Blood Urea Nitrogen 17 mg/dL (7-18) Creatinine 0.8 MG/DL (0.55-1.30) Estimat Glomerular Filtration Rate > 60 mL/min (>60) Glucose Level 110 MG/DL (74-106) H Calcium Level 9.0 MG/DL (8.5-10.1) Total Bilirubin 0.6 MG/DL (0.2-1.0) Aspartate Amino Transf (AST/SGOT) 86 U/L (15-37) H Alanine Aminotransferase (ALT/SGPT) 73 U/L (12-78) Alkaline Phosphatase 103 U/L (46-116) Total Protein 8.8 G/DL (6.4-8.2) H Albumin 2.0 G/DL (3.4-5.0) L Globulin 6.8 g/dL Albumin/Globulin Ratio 0.3 (1.0-2.7) L Triglycerides Level 133 MG/DL (30-150) Cholesterol Level 118 MG/DL (< 200) LDL Cholesterol 86 mg/dL (<100) HDL Cholesterol 16 MG/DL (40-60) L Cholesterol/HDL Ratio 7.4 (3.3-4.4) H Lipase > 2000 U/L (73-393) H Vancomycin Level Trough 8.3 ug/mL (5.0-12.0) Height (Feet): 5 Height (Inches): 9.00 Weight (Pounds): 160 General Appearance: no apparent distress, alert Cardiovascular: normal rate Respiratory/Chest: normal breath sounds, no respiratory distress Abdominal Exam: normal bowel sounds, non tender, soft Extremities: non-tender Sonja Neely SPECIAL EDUCATION PARAEDUCATOR Jul 20, 2018 11:40
[2018-07-20 11:48] VITALS: BP 134/80
--- NOTE | 2018-07-20 13:41 | NUR ---
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 100.2 HR 107 RR 28 B/P 134/80 3L NC WBC 18.9 IS: VANCO IV DIFLUCAN IV TPN STEP DOWN STATUS
--- NOTE | 2018-07-20 14:17 | NUR ---
RD ASSESSMENT & RECOMMENDATIONS SEE CARE ACTIVITY FOR COMPLETE ASSESSMENT DAILY ESTIMATED NEEDS: Needs based on Pancreatitis, 72.6kg 25-30 kcals/kg 4157-0106 total kcals 1-1.5 g protein/kg 73-109 g total protein 25-30 mL/kg 0545-1277 total fluid mLs NUTRITION DIAGNOSIS: * Altered nutrition-related lab values R/T liver dysfunction, pancreatitis, clinical condition as evidenced by elev LFTs, trend down, elev T bili, now wnl, , Hep C antibody >11, elev lipase and amylase, low Na (130-> wnl), low K 3.3-> wnl. * Swallowing difficulty R/T dysphagia, decreased alertness, respiratory status as evidenced by previously recommended NPO per ADVERTISING SALES CONSULTANT, intubated, now extubated, currently on TPN. (UPDATED) CURRENT DIET:NPO PO DIET RECOMMENDATIONS: Diet per MD PARENTERAL NUTRITION RECOMMENDATIONS: D/AA Rate: 70 IL Rate: 8 Total Rate: 78 Volume: 1872 % Dextrose: 20 % AA: 5.5 Energy (kcals/kg): 1896 Protein (g/kg protein): 92 Nonprotein KCALS: 1526 GIR (mg CHO/kg/min): 3.2 % Fat KCALS: 20 NCP: N Ratio: 104:1 TPN Comment: - Continue D20%, AA 5.5% @70ml/hr + 20% IL @8ml-> all 3:1 - TPN @goal provides 1872 kcal (26 kcal/kg). 92g prot (1.3g/kg) - Monitor BG, lytes, LFT's daily on TPN - IL 20% of total kcal - GIR <5 - NPC >100:1 ADDITIONAL RECOMMENDATIONS: 1) Monitor lytes, LFTs, BGs daily w/ TPN 2) Diet initiation per MD 3) Calibrated bedscale wt for accurate CBW 4) Monitor lipase level . . .
--- NOTE | 2018-07-20 15:42 | Infectious Diseases Prog Note ---
Assessment/Plan Assessment/Plan ASSESSMENT AND PLAN: 1. sepsis, klebsiella cholecystitis, gram neg pna, leukocytosis, fevers, sirs, fungal uti, fungemia risk - meropenem, vancomycin and diflucan - check cultures final - monitor labs, wbc, temps and chest x-ray - dequan/supportive care 3. Smoking use. 4. Anemia. 5. Thrombocytosis. 6. No history of diabetes, hypertension, but he is on Norvasc. 7. No known allergies. 8. Social history positive for smoking and alcohol use. No history of intravenous drug abuse. 9. MAR was noted. 10. Case discussed with RN. 11. Continue treatment per primary consultants. 12. Case discussed at length the ICU nurse, the patient currently in ICU. 13. Continue skin care protocol and pulmonary treatments for now. Subjective Constitutional: Denies: fever HEENT: Reports: congestion - less Respiratory: Reports: shortness of breath - less Cardiovascular: Denies: chest pain Gastrointestinal/Abdominal: Denies: nausea, vomiting, diarrhea Genitourinary: Reports: other - + melchor Neurologic: Reports: other - more alert ; Denies: headache Psychiatric: Denies: depression Skin: Denies: rash Hematologic: Denies: bleeding Musculoskeletal: Denies: pain Allergies: Coded Allergies: No Known Allergies (Unverified , 06/01/16) Objective Vital Signs Last 24 Hour Vital Signs Date Time Temp Pulse Resp B/P (MAP) Pulse Ox O2 Delivery O2 Flow Rate FiO2 07/20/18 13:00 108 18 100 Nasal Cannula 3.0 32 07/20/18 12:50 102 20 92 Nasal Cannula 3.0 32 07/20/18 12:00 Nasal Cannula 3.0 07/20/18 12:00 108 07/20/18 11:48 99.0 108 23 134/80 (98) 100 07/20/18 09:48 107 125/78 07/20/18 09:48 107 125/78 07/20/18 08:00 Nasal Cannula 3.0 07/20/18 08:00 100.2 107 28 125/78 (94) 97 07/20/18 07:47 105 18 100 Nasal Cannula 3.0 32 07/20/18 07:37 Nasal Cannula 3.0 32 07/20/18 07:37 106 07/20/18 07:37 105 22 98 Nasal Cannula 3.0 32 07/20/18 07:37 Nasal Cannula 3.0 32 07/20/18 04:00 97.9 111 24 121/74 (90) 97 07/20/18 04:00 Nasal Cannula 3.0 Venturi Mask 07/20/18 03:44 110 07/20/18 00:43 110 24 97 Nasal Cannula 3.0 32 07/20/18 00:29 107 27 96 Nasal Cannula 3.0 32 07/20/18 00:00 Nasal Cannula 3.0 Venturi Mask 07/20/18 00:00 96.6 116 24 132/78 (96) 97 07/19/18 23:54 114 07/19/18 20:50 100.0 07/19/18 20:36 94 Nasal Cannula 3.0 32 07/19/18 20:36 120 27 100 Nasal Cannula 3.0 32 07/19/18 20:36 Nasal Cannula 3.0 32 07/19/18 20:36 120 27 94 Nasal Cannula 3.0 32 07/19/18 20:00 100.0 114 25 124/80 (95) 99 07/19/18 20:00 Nasal Cannula 3.0 Venturi Mask 07/19/18 19:25 112 07/19/18 17:00 104 23 123/74 76 Nasal Cannula 3.0 07/19/18 16:00 98.6 104 25 115/73 99 Nasal Cannula 3.0 07/19/18 16:00 104 07/19/18 16:00 Nasal Cannula 3.0 Venturi Mask Height (Feet): 5 Height (Inches): 9.00 Weight (Pounds): 160 General Appearance: no acute distress, other - more alert HEENT: normocephalic, atraumatic, anicteric, mucous membranes moist, EOMI, pharynx normal, supple, no JVD Respiratory/Chest: crackles/rales, rhonchi - bilaterally Cardiovascular: normal rate, regular rhythm, no gallop/murmur, no JVD Abdomen: normal bowel sounds, soft, non tender, no organomegaly, non distended Genitourinary: other - + melchor - urine slt cloudy Extremities: no cyanosis Skin: no rash Neurologic/Psychiatric: technology consultant II-XII 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 Apparent elevation of the right hemidiaphragm is again noted. The left lung demonstrates a very faint opacity in the left midlung which is not evident previously. However, interstitial congestion in the left lung has improved. Impression: Persistent right-sided pleural effusion and fairly extensive parenchymal infiltrate or edema Improved left lung interstitial congestion. Focal patchy left lung abnormality was not evident previously, however, and could represent a small area of infiltrate Microbiology Date/Time Source Procedure Growth Status 07/18/18 20:25 Blood Blood Culture - Preliminary NO GROWTH AFTER 24 HOURS Resulted 07/18/18 20:10 Blood Blood Culture - Preliminary NO GROWTH AFTER 24 HOURS Resulted 07/19/18 07:58 Sputum Induced Gram Stain - Final Resulted 07/19/18 07:58 Sputum Culture - Preliminary Gram Negative Akil Resulted 07/19/18 08:05 Urine,Clean Catch Urine Culture - Preliminary YEAST Resulted Laboratory Tests Test 07/20/18 08:04 White Blood Count 18.9 K/UL (4.8-10.8) H Red Blood Count 3.64 M/UL (4.70-6.10) L Hemoglobin 12.5 G/DL (14.2-18.0) L Hematocrit 37.6 % (42.0-52.0) L Mean Corpuscular Volume 103 FL (80-99) H Mean Corpuscular Hemoglobin 34.3 PG (27.0-31.0) H Mean Corpuscular Hemoglobin Concent 33.2 G/DL (32.0-36.0) Red Cell Distribution Width 14.1 % (11.6-14.8) Platelet Count 661 K/UL (150-450) H Mean Platelet Volume 6.4 FL (6.5-10.1) L Neutrophils (%) (Auto) % (45.0-75.0) Lymphocytes (%) (Auto) % (20.0-45.0) Monocytes (%) (Auto) % (1.0-10.0) Eosinophils (%) (Auto) % (0.0-3.0) Basophils (%) (Auto) % (0.0-2.0) Differential Total Cells Counted 100 Neutrophils % (Manual) 89 % (45-75) H Lymphocytes % (Manual) 3 % (20-45) L Monocytes % (Manual) 4 % (1-10) Eosinophils % (Manual) 2 % (0-3) Basophils % (Manual) 0 % (0-2) Band Neutrophils 2 % (0-8) Platelet Estimate Increased H Platelet Morphology Normal Macrocytosis 1+ Prothrombin Time 10.7 SEC (9.30-11.50) Prothromb Time International Ratio 1.0 (0.9-1.1) Activated Partial Thromboplast Time 27 SEC (23-33) Sodium Level 143 MMOL/L (136-145) Potassium Level 3.7 MMOL/L (3.5-5.1) Chloride Level 108 MMOL/L (98-107) H Carbon Dioxide Level 25 MMOL/L (21-32) Anion Gap 11 mmol/L (5-15) Blood Urea Nitrogen 17 mg/dL (7-18) Creatinine 0.8 MG/DL (0.55-1.30) Estimat Glomerular Filtration Rate > 60 mL/min (>60) Glucose Level 110 MG/DL (74-106) H Calcium Level 9.0 MG/DL (8.5-10.1) Total Bilirubin 0.6 MG/DL (0.2-1.0) Aspartate Amino Transf (AST/SGOT) 86 U/L (15-37) H Alanine Aminotransferase (ALT/SGPT) 73 U/L (12-78) Alkaline Phosphatase 103 U/L (46-116) Total Protein 8.8 G/DL (6.4-8.2) H Albumin 2.0 G/DL (3.4-5.0) L Globulin 6.8 g/dL Albumin/Globulin Ratio 0.3 (1.0-2.7) L Triglycerides Level 133 MG/DL (30-150) Cholesterol Level 118 MG/DL (< 200) LDL Cholesterol 86 mg/dL (<100) HDL Cholesterol 16 MG/DL (40-60) L Cholesterol/HDL Ratio 7.4 (3.3-4.4) H Lipase > 2000 U/L (73-393) H Vancomycin Level Trough 8.3 ug/mL (5.0-12.0) Current Medications Medications (Trade) Dose Ordered Sig/Mukesh Route PRN Reason Start Time Stop Time Status Last Admin Dose Admin Acetaminophen (Tylenol) 650 mg Q4H PRN RECTAL Prn for Temp >100.5 07/19/18 19:00 08/14/18 18:59 07/19/18 20:20 Al Hydroxide/Mg Hydroxide (Mylanta) 15 ml Q6H PRN NG DYSPEPSIA 07/19/18 19:00 08/11/18 18:59 Albuterol/ Ipratropium (Albuterol/ Ipratropium) 3 ml Q4H PRN HHN Shortness of Breath 07/19/18 19:00 07/20/18 18:59 Albuterol/ Ipratropium (Albuterol/ Ipratropium) 3 ml Q6HRT HHN 07/19/18 19:00 07/22/18 18:59 07/20/18 12:50 Amlodipine Besylate (Norvasc) 10 mg DAILY NG 07/20/18 09:00 08/04/18 13:48 07/20/18 09:48 Chlorhexidine Gluconate (Estrella-Hex 2%) 1 applic DAILY@2000 TOPIC 07/19/18 20:00 08/15/18 19:59 07/19/18 20:19 Clonidine HCl (Catapres Tab) 0.1 mg Q8H PRN NG hypertension 07/19/18 19:00 08/04/18 18:59 Dextrose (Dextrose 50%) 25 ml Q30M PRN IV Hypoglycemia 07/19/18 19:00 08/17/18 00:00 Dextrose (Dextrose 50%) 50 ml Q30M PRN IV hypoglycemia 07/19/18 19:00 08/17/18 00:00 Diphenhydramine HCl (Benadryl) 12.5 mg Q6H PRN IVP Itching/Pruritis 07/19/18 19:00 08/11/18 18:59 Docusate Sodium (Colace) 100 mg TWICE A DAY NG 07/20/18 09:00 08/12/18 08:59 07/20/18 09:48 Fat Emulsion Intravenous 192 ml/Amino Acids/ Electrolytes/ Dextrose 1,872 ml @ 78 mls/hr Q24H IV 07/19/18 20:00 08/16/18 19:59 07/19/18 20:18 Fluconazole/ Sodium Chloride 200 ml @ 200 mls/hr Q24H IV 07/20/18 16:30 07/25/18 16:29 Heparin Sodium (Porcine) (Heparin 5000 units/ml) 5,000 units Q12HR SUBQ 07/19/18 21:00 08/02/18 08:59 07/20/18 09:52 Hydromorphone HCl (Dilaudid) 0.5 mg Q3H PRN IVP Pain Score 1-3 07/19/18 19:00 07/22/18 18:59 Hydromorphone HCl (Dilaudid) 1 mg Q3H PRN IVP pain score 4-6 07/19/18 19:00 07/26/18 18:59 Hydromorphone HCl (Dilaudid) 2 mg Q3H PRN IVP pain score 7-10 07/19/18 19:00 07/26/18 18:59 Insulin Aspart (NovoLOG) No Dose Q6HR SUBQ 07/20/18 00:00 08/17/18 00:00 07/20/18 06:06 Lactulose (Cephulac) 30 gm THREE TIMES A DAY NG 07/20/18 09:00 08/17/18 12:59 07/20/18 13:23 Lorazepam (Ativan 2mg/ml 1ml) 1 mg Q1H PRN IV For Anxiety 07/19/18 19:00 07/26/18 18:59 Magnesium Hydroxide (Mom) 30 ml BIDPRN PRN NG Constipation 07/19/18 19:00 08/11/18 18:59 Meropenem 1 gm/ Sodium Chloride 100 ml @ 200 mls/hr Q8HR IVPB 07/19/18 22:00 07/23/18 15:59 07/20/18 13:24 Metoprolol Tartrate (Lopressor) 25 mg DAILY NG 07/20/18 09:00 08/13/18 20:29 07/20/18 09:48 Nicotine (Nicoderm) 1 patch Q24H TDERMAL 07/20/18 18:00 08/08/18 17:59 Ondansetron HCl (Zofran) 4 mg Q6H PRN IVP Nausea & Vomiting 07/19/18 19:00 08/01/18 18:59 Pantoprazole (Protonix) 40 mg EVERY 12 HOURS IVP 07/19/18 21:00 08/09/18 20:59 07/20/18 09:48 Phytonadione (Vitamin K) 10 mg QWEEK SUBQ 07/24/18 20:00 08/23/18 19:59 Vancomycin HCl (Vanco rx to dose) 1 ea DAILY PRN MISC Per rx protocol 07/19/18 19:00 08/18/18 18:59 Vancomycin HCl/ Dextrose 275 ml @ 137.5 mls/ hr Q12H IVPB 07/20/18 18:00 07/25/18 17:59 Tyler Madsen MD Jul 20, 2018 15:42
[2018-07-20 16:00] VITALS: BP 135/81
--- NOTE | 2018-07-20 16:30 | Pulmonology Progress Note ---
Assessment/Plan Assessment/Plan Pulmonary Progress Note Assessment/Plan Problems: (1) Respiratory disorder with ventilator dependence (2) Gangrenous cholecystitis (3) S/P cholecystectomy (4) Abnormal LFTs (5) Cholecystitis, acute (6) Hepatitis C (7) Alcoholic pancreatitis (8) Pancreatitis, acute (9) Alcohol abuse (10) Fatty liver (11) Tobacco use (12) Blood loss anemia (13) Pneumonia Respiratory: monitor respiratory rate, adjust FIO2, other - HHN's Cardiac: continue to monitor HR/BP Renal: check electrolytes Infectious Disease: check cultures, continue antibiotics - Vanco, Jair, Flucon per ID Gastrointestinal: other - NPO, TPN, GI and kevin recs Endocrine: monitor blood sugar Hematologic: monitor H/H Neurologic: keep patient comfortable Prophylaxis: Protonix, Heparin Disposition: transfer to - [facility] Time Spent (Minutes): 40 Notes Reviewed: media services director, ID, GI, 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 Discussed with: nurses, consultants Objective Vital Signs Noted Status: obtunded Condition: improving HEENT: atraumatic, normocephalic Lungs: clear Heart: HR/BP stable Abdomen: soft, non-tender, active bowel sounds, other - dressed, JUNE Extremities: no C/C/E Labs: Laboratory Tests Test 07/19/18 04:08 07/19/18 08:05 White Blood Count 21.8 K/UL (4.8-10.8) H Red Blood Count 3.18 M/UL (4.70-6.10) L Hemoglobin 11.1 G/DL (14.2-18.0) L Hematocrit 32.2 % (42.0-52.0) L Mean Corpuscular Volume 102 FL (80-99) H Mean Corpuscular Hemoglobin 35.0 PG (27.0-31.0) H Mean Corpuscular Hemoglobin Concent 34.5 G/DL (32.0-36.0) Red Cell Distribution Width 14.0 % (11.6-14.8) Platelet Count 692 K/UL (150-450) H Mean Platelet Volume 6.4 FL (6.5-10.1) L Neutrophils (%) (Auto) % (45.0-75.0) Lymphocytes (%) (Auto) % (20.0-45.0) Monocytes (%) (Auto) % (1.0-10.0) Eosinophils (%) (Auto) % (0.0-3.0) Basophils (%) (Auto) % (0.0-2.0) Differential Total Cells Counted 100 Neutrophils % (Manual) 90 % (45-75) H Lymphocytes % (Manual) 6 % (20-45) L Monocytes % (Manual) 4 % (1-10) Eosinophils % (Manual) 0 % (0-3) Basophils % (Manual) 0 % (0-2) Band Neutrophils 0 % (0-8) Platelet Estimate Increased H Platelet Morphology Normal Macrocytosis 1+ Prothrombin Time 11.5 SEC (9.30-11.50) Prothromb Time International Ratio 1.1 (0.9-1.1) Activated Partial Thromboplast Time 28 SEC (23-33) Sodium Level 142 MMOL/L (136-145) Potassium Level 3.6 MMOL/L (3.5-5.1) Chloride Level 107 MMOL/L (98-107) Carbon Dioxide Level 25 MMOL/L (21-32) Anion Gap 10 mmol/L (5-15) Blood Urea Nitrogen 12 mg/dL (7-18) Creatinine 0.8 MG/DL (0.55-1.30) Estimat Glomerular Filtration Rate > 60 mL/min (>60) Glucose Level 114 MG/DL (74-106) H Calcium Level 8.4 MG/DL (8.5-10.1) L Phosphorus Level 2.6 MG/DL (2.5-4.9) Magnesium Level 2.4 MG/DL (1.8-2.4) Total Bilirubin 0.4 MG/DL (0.2-1.0) Aspartate Amino Transf (AST/SGOT) 60 U/L (15-37) H Alanine Aminotransferase (ALT/SGPT) 52 U/L (12-78) Alkaline Phosphatase 75 U/L (46-116) Total Protein 7.9 G/DL (6.4-8.2) Albumin 1.9 G/DL (3.4-5.0) L Globulin 6.0 g/dL Albumin/Globulin Ratio 0.3 (1.0-2.7) L Lipase > 2000 U/L (73-393) H Urine Color Yellow Urine Appearance Clear Urine pH 6 (4.5-8.0) Urine Specific [place] 1.015 (1.005-1.035) Urine Protein 3+ (NEGATIVE) H Urine Glucose (UA) Negative (NEGATIVE) Urine Ketones 1+ (NEGATIVE) H Urine Blood 3+ (NEGATIVE) H Urine Nitrite Negative (NEGATIVE) Urine Bilirubin Negative (NEGATIVE) Urine Urobilinogen Normal MG/DL (0.0-1.0) Urine Leukocyte Esterase 1+ (NEGATIVE) H Urine RBC 5-10 /HPF (0 - 0) H Urine WBC 2-4 /HPF (0 - 0) Urine Squamous Epithelial Cells Occasional /LPF Urine Bacteria Few /HPF (NONE) Urine Yeast Few /HPF (NONE) H Subjective ROS Limited/Unobtainable: No Allergies: Coded Allergies: No Known Allergies (Unverified , 06/01/16) Objective Last 24 Hour Vital Signs Date Time Temp Pulse Resp B/P (MAP) Pulse Ox O2 Delivery O2 Flow Rate FiO2 07/20/18 13:00 108 18 100 Nasal Cannula 3.0 32 07/20/18 12:50 102 20 92 Nasal Cannula 3.0 32 07/20/18 12:00 Nasal Cannula 3.0 07/20/18 12:00 108 07/20/18 11:48 99.0 108 23 134/80 (98) 100 07/20/18 09:48 107 125/78 07/20/18 09:48 107 125/78 07/20/18 08:00 Nasal Cannula 3.0 07/20/18 08:00 100.2 107 28 125/78 (94) 97 07/20/18 07:47 105 18 100 Nasal Cannula 3.0 32 07/20/18 07:37 Nasal Cannula 3.0 32 07/20/18 07:37 106 07/20/18 07:37 105 22 98 Nasal Cannula 3.0 32 07/20/18 07:37 Nasal Cannula 3.0 32 07/20/18 04:00 97.9 111 24 121/74 (90) 97 07/20/18 04:00 Nasal Cannula 3.0 Venturi Mask 07/20/18 03:44 110 07/20/18 00:43 110 24 97 Nasal Cannula 3.0 32 07/20/18 00:29 107 27 96 Nasal Cannula 3.0 32 07/20/18 00:00 Nasal Cannula 3.0 Venturi Mask 07/20/18 00:00 96.6 116 24 132/78 (96) 97 07/19/18 23:54 114 07/19/18 20:50 100.0 07/19/18 20:36 94 Nasal Cannula 3.0 32 07/19/18 20:36 120 27 100 Nasal Cannula 3.0 32 07/19/18 20:36 Nasal Cannula 3.0 32 07/19/18 20:36 120 27 94 Nasal Cannula 3.0 32 07/19/18 20:00 100.0 114 25 124/80 (95) 99 07/19/18 20:00 Nasal Cannula 3.0 Venturi Mask 07/19/18 19:25 112 07/19/18 17:00 104 23 123/74 76 Nasal Cannula 3.0 Intake and Output 07/19/18 07/20/18 19:00 07:00 Intake Total 2165.000 ml 1230.000 ml Output Total 850 ml 930 ml Balance 1315.000 ml 300.000 ml Intake Oral 78 ml Free Water 50 ml IV Total 2037.000 ml 1230.000 ml Tube Feeding 0 ml Output Urine Total 850 ml 850 ml Drainage Total 80 ml # Bowel Movements 2 3 Microbiology Date/Time Source Procedure Growth Status 07/18/18 20:25 Blood Blood Culture - Preliminary NO GROWTH AFTER 24 HOURS Resulted 07/18/18 20:10 Blood Blood Culture - Preliminary NO GROWTH AFTER 24 HOURS Resulted 07/19/18 07:58 Sputum Induced Gram Stain - Final Resulted 07/19/18 07:58 Sputum Culture - Preliminary Gram Negative Akil Resulted 07/19/18 08:05 Urine,Clean Catch Urine Culture - Preliminary YEAST Resulted Laboratory Tests 07/20/18 08:04: White Blood Count 18.9H, Red Blood Count 3.64L, Hemoglobin 12.5L, Hematocrit 37.6L, Mean Corpuscular Volume 103H, Mean Corpuscular Hemoglobin 34.3H, Mean Corpuscular Hemoglobin Concent 33.2, Red Cell Distribution Width 14.1, Platelet Count 661H, Mean Platelet Volume 6.4L, Neutrophils (%) (Auto) , Lymphocytes (%) (Auto) , Monocytes (%) (Auto) , Eosinophils (%) (Auto) , Basophils (%) (Auto) , Differential Total Cells Counted 100, Neutrophils % (Manual) 89H, Lymphocytes % (Manual) 3L, Monocytes % (Manual) 4, Eosinophils % (Manual) 2, Basophils % ( Manual) 0, Band Neutrophils 2, Platelet Estimate IncreasedH, Platelet Morphology Normal, Macrocytosis 1+, Prothrombin Time 10.7, Prothromb Time International Ratio 1.0, Activated Partial Thromboplast Time 27, Sodium Level 143, Potassium Level 3.7, Chloride Level 108H, Carbon Dioxide Level 25, Anion Gap 11, Blood Urea Nitrogen 17, Creatinine 0.8, Estimat Glomerular Filtration Rate > 60, Glucose Level 110H, Calcium Level 9.0, Total Bilirubin 0.6, Aspartate Amino Transf (AST/SGOT) 86H, Alanine Aminotransferase (ALT/SGPT) 73, Alkaline Phosphatase 103, Total Protein 8.8H, Albumin 2.0L, Globulin 6.8, Albumin/Globulin Ratio 0.3L, Triglycerides Level 133, Cholesterol Level 118, LDL Cholesterol 86, HDL Cholesterol 16L, Cholesterol/HDL Ratio 7.4H, Lipase > 2000H, Vancomycin Level Trough 8.3 Current Medications Medications (Trade) Dose Ordered Sig/Mukesh Route PRN Reason Start Time Stop Time Status Last Admin Dose Admin Acetaminophen (Tylenol) 650 mg Q4H PRN RECTAL Prn for Temp >100.5 07/19/18 19:00 08/14/18 18:59 07/19/18 20:20 Al Hydroxide/Mg Hydroxide (Mylanta) 15 ml Q6H PRN NG DYSPEPSIA 07/19/18 19:00 08/11/18 18:59 Albuterol/ Ipratropium (Albuterol/ Ipratropium) 3 ml Q4H PRN HHN Shortness of Breath 07/19/18 19:00 07/20/18 18:59 Albuterol/ Ipratropium (Albuterol/ Ipratropium) 3 ml Q6HRT HHN 07/19/18 19:00 07/22/18 18:59 07/20/18 12:50 Amlodipine Besylate (Norvasc) 10 mg DAILY NG 07/20/18 09:00 08/04/18 13:48 07/20/18 09:48 Chlorhexidine Gluconate (Estrella-Hex 2%) 1 applic DAILY@2000 TOPIC 07/19/18 20:00 08/15/18 19:59 07/19/18 20:19 Clonidine HCl (Catapres Tab) 0.1 mg Q8H PRN NG hypertension 07/19/18 19:00 08/04/18 18:59 Dextrose (Dextrose 50%) 25 ml Q30M PRN IV Hypoglycemia 07/19/18 19:00 08/17/18 00:00 Dextrose (Dextrose 50%) 50 ml Q30M PRN IV hypoglycemia 07/19/18 19:00 08/17/18 00:00 Diphenhydramine HCl (Benadryl) 12.5 mg Q6H PRN IVP Itching/Pruritis 07/19/18 19:00 08/11/18 18:59 Docusate Sodium (Colace) 100 mg TWICE A DAY NG 07/20/18 09:00 08/12/18 08:59 07/20/18 09:48 Fat Emulsion Intravenous 192 ml/Amino Acids/ Electrolytes/ Dextrose 1,872 ml @ 78 mls/hr Q24H IV 07/19/18 20:00 08/16/18 19:59 07/19/18 20:18 Fluconazole/ Sodium Chloride 200 ml @ 200 mls/hr Q24H IV 07/20/18 16:30 07/25/18 16:29 Heparin Sodium (Porcine) (Heparin 5000 units/ml) 5,000 units Q12HR SUBQ 07/19/18 21:00 08/02/18 08:59 07/20/18 09:52 Hydromorphone HCl (Dilaudid) 0.5 mg Q3H PRN IVP Pain Score 1-3 07/19/18 19:00 07/22/18 18:59 Hydromorphone HCl (Dilaudid) 1 mg Q3H PRN IVP pain score 4-6 07/19/18 19:00 07/26/18 18:59 Hydromorphone HCl (Dilaudid) 2 mg Q3H PRN IVP pain score 7-10 07/19/18 19:00 07/26/18 18:59 Insulin Aspart (NovoLOG) No Dose Q6HR SUBQ 07/20/18 00:00 08/17/18 00:00 07/20/18 06:06 Lactulose (Cephulac) 30 gm THREE TIMES A DAY NG 07/20/18 09:00 08/17/18 12:59 07/20/18 13:23 Lorazepam (Ativan 2mg/ml 1ml) 1 mg Q1H PRN IV For Anxiety 07/19/18 19:00 07/26/18 18:59 Magnesium Hydroxide (Mom) 30 ml BIDPRN PRN NG Constipation 07/19/18 19:00 08/11/18 18:59 Meropenem 1 gm/ Sodium Chloride 100 ml @ 200 mls/hr Q8HR IVPB 07/19/18 22:00 07/23/18 15:59 07/20/18 13:24 Metoprolol Tartrate (Lopressor) 25 mg DAILY NG 07/20/18 09:00 08/13/18 20:29 07/20/18 09:48 Nicotine (Nicoderm) 1 patch Q24H TDERMAL 07/20/18 18:00 08/08/18 17:59 Ondansetron HCl (Zofran) 4 mg Q6H PRN IVP Nausea & Vomiting 07/19/18 19:00 08/01/18 18:59 Pantoprazole (Protonix) 40 mg EVERY 12 HOURS IVP 07/19/18 21:00 08/09/18 20:59 07/20/18 09:48 Phytonadione (Vitamin K) 10 mg QWEEK SUBQ 07/24/18 20:00 08/23/18 19:59 Vancomycin HCl (Vanco rx to dose) 1 ea DAILY PRN MISC Per rx protocol 07/19/18 19:00 08/18/18 18:59 Vancomycin HCl/ Dextrose 275 ml @ 137.5 mls/ hr Q12H IVPB 07/20/18 18:00 07/25/18 17:59 Parker Borjas MD Jul 20, 2018 16:30
[2018-07-20] MEDS: Vancomycin 1.5gm/D5W 275ml IVPB SCH (18:41)
--- NOTE | 2018-07-20 19:05 | General Progress Note ---
Assessment/Plan Assessment/Plan Anemia of chronic disease due to underlying chronic medical issues, multifactorial, pancreatitis --> Anemia workup has been ordered/reviewed as well --> No evidence of hemolysis is noted, peripheral smear has been reviewed. --> Hgb goal >7. Transfuse prn. --> Epogen or iron at this time is not particularly indicated --> Medications have been reviewed # Thrombocytopenia is likely related to underlying reactive processs from pancreatitis, acute, as well as alcoholic intoxication and myelosuppression --> also patient has a history of hepatitis C from prior admission --> smear has been reviewed --> heparin sq is okay if needed for dvt ppx # Erythrocytosis is likely related to dehydration --> hgb goal >7, no evidence of bleeding currently --> given ivf already # Leukocytosis no e/o annie infection --> could be due to reactive process v cholecystitis --> wbc trend: 22-->18-->16-->14-->18 --> peripheral smear has been reviewed --> ercp tomorrow per surg/gi # Pancreatitis with alcohol abuse --> recommend etoh cessation --> amylase and lipase prn -->Status post ERCP with sphincterotomy and stent placement # Transaminitis --> likely related to etoh abuse --> in past seen by gi # Alcohol abuse -- recommend cessation The timing of this note does not necessarily reflect the time of the patient was seen Greatly appreciate consultation! Subjective HEENT: Denies: no symptoms, eye pain, blurred vision, tearing, double vision, ear pain, ear discharge, nose pain, nose congestion, throat pain, throat swelling, mouth pain, mouth swelling, other Cardiovascular: Denies: no symptoms, chest pain, edema, irregular heart rate, lightheadedness, palpitations, syncope, other Respiratory: Denies: no symptoms, cough, orthopnea, shortness of breath, SOB with excertion, SOB at rest, sputum, stridor, wheezing, other Gastrointestinal/Abdominal: Denies: no symptoms, abdomen distended, abdominal pain, black stools, tarry stools, blood in stool, constipated, diarrhea, difficulty swallowing, nausea, poor appetite, poor fluid intake, rectal bleeding , vomiting, other Neurologic/Psychiatric: Denies: no symptoms, anxiety, depressed, emotional problems, headache, numbness, paresthesia, pre-existing deficit, seizure, tingling, tremors, weakness, other Endocrine: Denies: no symptoms, excessive sweating, flushing, intolerance to cold, intolerance to heat, increased hunger, increased thirst, increased urine, unexplained weight gain, unexplained weight loss, other Allergies: Coded Allergies: No Known Allergies (Unverified , 06/01/16) Subjective 07/05: bp was high today and dc was cancelled until tomorow, on librium 07/06: wbc was high though other counts are better, no f/c 07/10: seen by bedside, heart rate increased, appears agitated, wbc 13.9 07/11: to get ercp tomorrow, surgery and gi following 07/12 ercp, sphincterotomy, stent placement surgery done today, currently having tremors and tachy. wbc 15.9, hgb 14, plt 429 07/13: Pt is intubated, seen by bedside,wbc 22, on abx, no acute distress 07/14: awake and comfortable, still intubated on vent, labs noted hb trending down, wbc 18, hgb 8. 07/16: seen by bedside, awake, comfortable, wbc 14, hgb 9, plt 613 07/17: awake, comfortable, status post ERCP with sphincterotomy wbc 21, hgb 10, plt 689. 07/18; seen by bedside, awake comfortable, on venturi mask, wbc 23, plt 754. 07/19: seen by bedside, awake and comfortable, no events, wbc 21 07/20: now out of the icu, doing better, wbc improved, remains on abx as per ID Objective Last 24 Hour Vital Signs Date Time Temp Pulse Resp B/P (MAP) Pulse Ox O2 Delivery O2 Flow Rate FiO2 07/20/18 16:00 99.1 104 28 135/81 (99) 96 07/20/18 16:00 Nasal Cannula 3.0 Nasal Cannula 3.0 07/20/18 15:48 105 07/20/18 13:00 108 18 100 Nasal Cannula 3.0 32 07/20/18 12:50 102 20 92 Nasal Cannula 3.0 32 07/20/18 12:00 Nasal Cannula 3.0 07/20/18 12:00 108 07/20/18 11:48 99.0 108 23 134/80 (98) 100 07/20/18 09:48 107 125/78 07/20/18 09:48 107 125/78 07/20/18 08:00 Nasal Cannula 3.0 07/20/18 08:00 100.2 107 28 125/78 (94) 97 07/20/18 07:47 105 18 100 Nasal Cannula 3.0 32 07/20/18 07:37 Nasal Cannula 3.0 32 07/20/18 07:37 106 07/20/18 07:37 105 22 98 Nasal Cannula 3.0 32 07/20/18 07:37 Nasal Cannula 3.0 32 07/20/18 04:00 97.9 111 24 121/74 (90) 97 07/20/18 04:00 Nasal Cannula 3.0 Venturi Mask 07/20/18 03:44 110 07/20/18 00:43 110 24 97 Nasal Cannula 3.0 32 07/20/18 00:29 107 27 96 Nasal Cannula 3.0 32 07/20/18 00:00 Nasal Cannula 3.0 Venturi Mask 07/20/18 00:00 96.6 116 24 132/78 (96) 97 07/19/18 23:54 114 07/19/18 20:50 100.0 07/19/18 20:36 94 Nasal Cannula 3.0 32 07/19/18 20:36 120 27 100 Nasal Cannula 3.0 32 07/19/18 20:36 Nasal Cannula 3.0 32 07/19/18 20:36 120 27 94 Nasal Cannula 3.0 32 07/19/18 20:00 100.0 114 25 124/80 (95) 99 07/19/18 20:00 Nasal Cannula 3.0 Venturi Mask 07/19/18 19:25 112 Intake and Output 07/19/18 07/20/18 19:00 07:00 Intake Total 2165.000 ml 1230.000 ml Output Total 850 ml 930 ml Balance 1315.000 ml 300.000 ml Intake Oral 78 ml Free Water 50 ml IV Total 2037.000 ml 1230.000 ml Tube Feeding 0 ml Output Urine Total 850 ml 850 ml Drainage Total 80 ml # Bowel Movements 2 3 Laboratory Tests 07/20/18 08:04: White Blood Count 18.9H, Red Blood Count 3.64L, Hemoglobin 12.5L, Hematocrit 37.6L, Mean Corpuscular Volume 103H, Mean Corpuscular Hemoglobin 34.3H, Mean Corpuscular Hemoglobin Concent 33.2, Red Cell Distribution Width 14.1, Platelet Count 661H, Mean Platelet Volume 6.4L, Neutrophils (%) (Auto) , Lymphocytes (%) (Auto) , Monocytes (%) (Auto) , Eosinophils (%) (Auto) , Basophils (%) (Auto) , Differential Total Cells Counted 100, Neutrophils % (Manual) 89H, Lymphocytes % (Manual) 3L, Monocytes % (Manual) 4, Eosinophils % (Manual) 2, Basophils % ( Manual) 0, Band Neutrophils 2, Platelet Estimate IncreasedH, Platelet Morphology Normal, Macrocytosis 1+, Prothrombin Time 10.7, Prothromb Time International Ratio 1.0, Activated Partial Thromboplast Time 27, Sodium Level 143, Potassium Level 3.7, Chloride Level 108H, Carbon Dioxide Level 25, Anion Gap 11, Blood Urea Nitrogen 17, Creatinine 0.8, Estimat Glomerular Filtration Rate > 60, Glucose Level 110H, Calcium Level 9.0, Total Bilirubin 0.6, Aspartate Amino Transf (AST/SGOT) 86H, Alanine Aminotransferase (ALT/SGPT) 73, Alkaline Phosphatase 103, Total Protein 8.8H, Albumin 2.0L, Globulin 6.8, Albumin/Globulin Ratio 0.3L, Triglycerides Level 133, Cholesterol Level 118, LDL Cholesterol 86, HDL Cholesterol 16L, Cholesterol/HDL Ratio 7.4H, Lipase > 2000H, Vancomycin Level Trough 8.3 Height (Feet): 5 Height (Inches): 9.00 Weight (Pounds): 160 Objective Physical Exam General Appearance: A+O x3, NAD, ++ asterixis HEENT: normocephalic, atraumatic Neck: non-tender, normal alignment Respiratory/Chest: chest wall non-tender, lungs clear Cardiovascular/Chest: normal peripheral pulses, normal rate Abdomen: normal bowel sounds, non tender Extremities: normal range of motion Guy Salazar MD Jul 20, 2018 19:05
--- NOTE | 2018-07-20 19:25 | NUR ---
NURSE NOTES: Received report from Patricia RN, pt. in bed awake, Alert x's2- no signs or symptoms of acute cardiac or respiratory distress, bed in lowest position and call light within easy reach, bed alarm on side rails up x's 3, safety brakes engaged, comfort measures provided, pt.appears to be sating well on 3L NC at 98% - no distress noted, left NGT intact and patent- for meds only, Serrano intact and draining to gravity, JUNE drain intact and draining to gravity, TPN running at 78cc/hr via AVI PICC- Picc intact and patent, safety measures continued,, will continues with plan of care.
[2018-07-20 20:00] VITALS: BP 134/85
[2018-07-20] MEDS: FAT EMULSION 20% IV SCH (20:00)
[2018-07-20] MEDS: TPN IV SCH (20:00)
[2018-07-20] MEDS: Dyna-Hex 2% Top Sol 2oz TOPIC SCH (20:04)
[2018-07-21] VITALS: BP 124/74
[2018-07-21] MEDS: Albuterol/Ipratropium 3ml neb HHN SCH ×4 (01:26→19:13)
[2018-07-21 04:00] VITALS: BP 130/86
[2018-07-21] MEDS: NovoLOG Insulin Flexpen SUBQ SCH ×4 (06:03→23:59)
[2018-07-21] MEDS: Vancomycin 1.5gm/D5W 275ml IVPB SCH ×2 (06:22→18:35)
[2018-07-21 06:28] LABS: HEMATOCRIT 33.8 % (42.0-52.0); HEMOGLOBIN 11.5 G/DL (14.2-18.0); MEAN CORPUSCULAR VOLUME 102 FL (80-99); PLATELET COUNT 602 K/UL (150-450); RED BLOOD COUNT 3.31 M/UL (4.70-6.10); RED CELL DISTRIBUTION WIDTH 13.7 % (11.6-14.8); WHITE BLOOD COUNT 14.8 K/UL (4.8-10.8)
[2018-07-21 06:57] LABS: ALANINE AMINOTRANSFERASE 91 U/L (12-78); ALBUMIN 1.9 G/DL (3.4-5.0); ALBUMIN/GLOBULIN RATIO 0.3 (1.0-2.7); ALKALINE PHOSPHATASE 111 U/L (46-116); ANION GAP 11 mmol/L (5-15); ASPARTATE AMINO TRANSFERASE 110 U/L (15-37); BILIRUBIN,TOTAL 0.5 MG/DL (0.2-1.0); BLOOD UREA NITROGEN 15 mg/dL (7-18); CALCIUM 8.5 MG/DL (8.5-10.1); CARBON DIOXIDE 24 MMOL/L (21-32); CHLORIDE 107 MMOL/L (98-107); CREATININE 0.7 MG/DL (0.55-1.30); POTASSIUM 3.4 MMOL/L (3.5-5.1); SODIUM 142 MMOL/L (136-145)
--- NOTE | 2018-07-21 07:11 | NUR ---
HAND-OFF: Report given to Patricia RN, pt remains stabel and no signs of distress noted- nurse aware to f/u on potassium trending down.
[2018-07-21 08:00] VITALS: BP 134/78
--- NOTE | 2018-07-21 09:03 | General Progress Note ---
Assessment/Plan Problem List: (1) Cholecystitis, acute ICD Codes: K81.0 - Acute cholecystitis SNOMED: 02512615 (2) Abnormal LFTs ICD Codes: R79.89 - Other specified abnormal findings of blood chemistry SNOMED: 758166497 (3) Fatty liver ICD Codes: K76.0 - Fatty (change of) liver, not elsewhere classified SNOMED: 648611539 Assessment/Plan Assessment/Plan SUMMARY OF FINDINGS: 1. 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 2. Status post ERCP with sphincterotomy, balloon assistance sludge and some pus extraction from the common bile duct and then stent placement. s/p open jocelyn, now in ICU with pancreatitis hepatitis C positive Pancreatitis RECOMMENDATIONS: follow up surgical recommendations Maintain n.p.o. with IV fluids given elevated lipase levels, continue TPN prn transfusions trend lipase fu labs The patient will need repeat ERCP in 6 to 8 weeks for stent removal. outpatient Hep C tx repeat CT ordered for today Subjective ROS Limited/Unobtainable: No Allergies: Coded Allergies: No Known Allergies (Unverified , 06/01/16) Objective Last 24 Hour Vital Signs Date Time Temp Pulse Resp B/P (MAP) Pulse Ox O2 Delivery O2 Flow Rate FiO2 07/21/18 08:00 Nasal Cannula 3.0 Nasal Cannula 3.0 07/21/18 08:00 97.7 102 26 134/78 (96) 97 07/21/18 06:53 97 Nasal Cannula 3.0 32 07/21/18 06:53 Nasal Cannula 3.0 32 07/21/18 06:47 106 18 96 Nasal Cannula 3.0 32 07/21/18 06:45 101 18 97 Nasal Cannula 3.0 32 07/21/18 04:00 113 07/21/18 04:00 Nasal Cannula 3.0 Nasal Cannula 3.0 07/21/18 04:00 97.5 112 21 130/86 (101) 97 07/21/18 01:34 104 25 100 Nasal Cannula 3.0 32 07/21/18 01:26 103 24 95 Nasal Cannula 3.0 32 07/21/18 00:00 Nasal Cannula 3.0 Nasal Cannula 3.0 07/21/18 00:00 100 07/21/18 00:00 97.5 96 25 124/74 (91) 99 07/20/18 20:00 98.6 105 24 134/85 (101) 98 07/20/18 20:00 104 07/20/18 20:00 Nasal Cannula 3.0 Nasal Cannula 3.0 07/20/18 19:30 104 25 100 Nasal Cannula 3.0 32 07/20/18 19:24 Nasal Cannula 3.0 32 07/20/18 19:24 97 Nasal Cannula 3.0 32 07/20/18 19:23 101 24 97 Nasal Cannula 3.0 32 07/20/18 16:00 99.1 104 28 135/81 (99) 96 07/20/18 16:00 Nasal Cannula 3.0 Nasal Cannula 3.0 07/20/18 15:48 105 07/20/18 13:00 108 18 100 Nasal Cannula 3.0 32 07/20/18 12:50 102 20 92 Nasal Cannula 3.0 32 07/20/18 12:00 Nasal Cannula 3.0 07/20/18 12:00 108 07/20/18 11:48 99.0 108 23 134/80 (98) 100 07/20/18 09:48 107 125/78 07/20/18 09:48 107 125/78 Intake and Output 07/20/18 07/21/18 18:59 06:59 Intake Total 1236 ml 1136 ml Output Total 1090 ml 895 ml Balance 146 ml 241 ml IV Total 1236 ml 1136 ml Output Urine Total 1000 ml 850 ml Drainage Total 90 ml 45 ml # Bowel Movements 6 7 Laboratory Tests 07/21/18 04:03: White Blood Count 14.8H, Red Blood Count 3.31L, Hemoglobin 11.5L, Hematocrit 33.8L, Mean Corpuscular Volume 102H, Mean Corpuscular Hemoglobin 34.8H, Mean Corpuscular Hemoglobin Concent 34.1, Red Cell Distribution Width 13.7, Platelet Count 602H, Mean Platelet Volume 6.2L, Neutrophils (%) (Auto) , Lymphocytes (%) (Auto) , Monocytes (%) (Auto) , Eosinophils (%) (Auto) , Basophils (%) (Auto) , Differential Total Cells Counted 100, Neutrophils % (Manual) 86H, Lymphocytes % (Manual) 7L, Monocytes % (Manual) 4, Eosinophils % (Manual) 3, Basophils % ( Manual) 0, Band Neutrophils 0, Platelet Estimate IncreasedH, Platelet Morphology Normal, Anisocytosis 1+, Macrocytosis 1+, Sodium Level 142, Potassium Level 3.4L, Chloride Level 107, Carbon Dioxide Level 24, Anion Gap 11 , Blood Urea Nitrogen 15, Creatinine 0.7, Estimat Glomerular Filtration Rate > 60, Glucose Level 120H, Calcium Level 8.5, Total Bilirubin 0.5, Aspartate Amino Transf (AST/SGOT) 110H, Alanine Aminotransferase (ALT/SGPT) 91H, Alkaline Phosphatase 111, Ammonia 31, Total Protein 7.9, Albumin 1.9L, Globulin 6.0, Albumin/Globulin Ratio 0.3L, Lipase > 2000H Height (Feet): 5 Height (Inches): 9.00 Weight (Pounds): 160 General Appearance: lethargic EENT: PERRL/EOMI Neck: supple Cardiovascular: normal rate Respiratory/Chest: decreased breath sounds Abdomen: soft, hypoactive bowel sounds, tender Extremities: non-tender Toñito Yip MD Jul 21, 2018 09:03
--- NOTE | 2018-07-21 09:14 | General Progress Note ---
Assessment/Plan Assessment/Plan #Sepsis #Acute purulent gangrenous cholecystitis. #klebsiella cholecystitis #acute Hypoxic respiratory failure #Acute Metabolic Encephalopathy - due to alcohol withdrawal and sepsis - meropenem, vancomycin and diflucan - bcx x 2 ngtd - s/p ercp 07/12 - gen surg consulted, s/p lap jocelyn converted to open jocelyn 07/12 - extubated on 07/16.19 - off o2 ncl - pulm consult appreciated - pain control - appreciate surg recs - fluids - tpn #Acute Blood Loss Anemia - due to recent surgery - no overt bleeding noted currently - hgb 6.8 07/15, transfused 2U, 9.7 (07/16) - stable #Pleural Effusions - b/l - per mrcp - stable - pulm consult apprecaited #Alcohol Pancreatitis #Intractable abdominal pain #intractable nausea/vomiting #Transaminitis #Alcohol Hepatitis #Alcohol withdrawals #Fatty Liver Disease #Hepatitis C - LFTs 446/532 - Lipase 687 - due to alcohol abuse - INR 1.0 - discriminant function, 4.5 , no need for steroids - US abd completed and reviewed, showing fatty liver disease. GS present, no obstruction noted - ppi - PRN antiemetics, zofran prn - Banana bag - close lab monitoring - IVF - monitor carefully for withdrawals - tube feeds held due to worsening pancreatitis - TPN - Per GI, will need ERCP in 6-8 weeks for stent removal #Failure to thrive - due to alcohol withdrawals and the above - alcoholic pancreatitis - fluids #Alcohol Abuse - educated on cessation for 15 mins - patient states he understands and will try to quit - RN notified to monitor carefully with withdrawals - prn ativan - ciwa #Uncontrolled HTN - clonidine 0.1 mg po prn - amlodipine 10mg qday - due to withdrawals #Tobacco abuse - smokes 1ppd - educated on smoking cessation for over 15 mins, states he understands the risks of smoking and will try to quit diet: NPO DVT Prophylaxis: SCD, HSQ Code Status: Full Hospital Classification Declaration: Based on this initial evaluation, and depending on the patient's clinical course, I anticipate that this patient will require hospitalization for 2-3days for alcohol abuse, pancreatitis and close respiratory/hemodynamic monitoring. I have reviewed all labs, imaging and medications Disposition: Once the patient is stable to leave the hospital, I anticipate the patient will likely be discharged to the following environment: home I spent over 43 minutes on this patient's case, and over 50% of that time was spent on counseling and/or care . Discussed with patient/family, nursing staff , SW/CM regarding clinical status, treatment course, and disposition planning. Time of note may not reflect time of encounter. ------- Date of Discussion: 07/03/18 A [id number] discussion with the patient regarding the patient's advanced care planning took place during this hospitalization on the above date. The discussion included the explanation and discussion of advance directives and associated forms/documents, as well as the patient's current code status. We also discussed at length the patient's medical conditions (both acute and chronic), general prognosis, treatment options, and goals of care. The following summarizes the discussion: Advance Care Planning/Goals of Care: - Will attempt to fill out an AD and/or POLST with the patient prior to discharge, if not already completed - Continue current evaluation and management of any acute and chronic medical issues - Will continue to support the patient/family - Will continue to discuss both short- and long-term goals of care DPOA-HC/Surrogate Decision Maker: : Bonnie Crenshaw Code Status: Full Code AD Forms/Documents Completed: Deferred A total of 34 minutes was spent on this discussion, including counseling, answering questions, and completing, if any, pertinent advanced care planning forms/documents. Subjective Date patient seen: Jul 21, 2018 Time patient seen: 09:12 Allergies: Coded Allergies: No Known Allergies (Unverified , 06/01/16) Subjective f/u pancreatitis, cholecystitis, sepsis, alcoholic hepatitis, nausea, alcohol abuse, alcohol withdrawals s/p ercp 07/12 and subsequent open jocelyn, full of pus, gangrenous jocelyn, drain left in extubated 07/16 transferred out of the icu yesterday afternoon TPN stable improving slowly awake ROS: 14 point ROS reviewed and negative except per above Objective Last 24 Hour Vital Signs Date Time Temp Pulse Resp B/P (MAP) Pulse Ox O2 Delivery O2 Flow Rate FiO2 07/21/18 08:00 Nasal Cannula 3.0 Nasal Cannula 3.0 07/21/18 08:00 97.7 102 26 134/78 (96) 97 07/21/18 06:53 97 Nasal Cannula 3.0 32 07/21/18 06:53 Nasal Cannula 3.0 32 07/21/18 06:47 106 18 96 Nasal Cannula 3.0 32 07/21/18 06:45 101 18 97 Nasal Cannula 3.0 32 07/21/18 04:00 113 07/21/18 04:00 Nasal Cannula 3.0 Nasal Cannula 3.0 07/21/18 04:00 97.5 112 21 130/86 (101) 97 07/21/18 01:34 104 25 100 Nasal Cannula 3.0 32 07/21/18 01:26 103 24 95 Nasal Cannula 3.0 32 07/21/18 00:00 Nasal Cannula 3.0 Nasal Cannula 3.0 07/21/18 00:00 100 07/21/18 00:00 97.5 96 25 124/74 (91) 99 07/20/18 20:00 98.6 105 24 134/85 (101) 98 07/20/18 20:00 104 07/20/18 20:00 Nasal Cannula 3.0 Nasal Cannula 3.0 07/20/18 19:30 104 25 100 Nasal Cannula 3.0 32 07/20/18 19:24 Nasal Cannula 3.0 32 07/20/18 19:24 97 Nasal Cannula 3.0 32 07/20/18 19:23 101 24 97 Nasal Cannula 3.0 32 07/20/18 16:00 99.1 104 28 135/81 (99) 96 07/20/18 16:00 Nasal Cannula 3.0 Nasal Cannula 3.0 07/20/18 15:48 105 07/20/18 13:00 108 18 100 Nasal Cannula 3.0 32 07/20/18 12:50 102 20 92 Nasal Cannula 3.0 32 07/20/18 12:00 Nasal Cannula 3.0 07/20/18 12:00 108 07/20/18 11:48 99.0 108 23 134/80 (98) 100 07/20/18 09:48 107 125/78 07/20/18 09:48 107 125/78 Intake and Output 07/20/18 07/21/18 18:59 06:59 Intake Total 1236 ml 1136 ml Output Total 1090 ml 895 ml Balance 146 ml 241 ml IV Total 1236 ml 1136 ml Output Urine Total 1000 ml 850 ml Drainage Total 90 ml 45 ml # Bowel Movements 6 7 Laboratory Tests 07/21/18 04:03: White Blood Count 14.8H, Red Blood Count 3.31L, Hemoglobin 11.5L, Hematocrit 33.8L, Mean Corpuscular Volume 102H, Mean Corpuscular Hemoglobin 34.8H, Mean Corpuscular Hemoglobin Concent 34.1, Red Cell Distribution Width 13.7, Platelet Count 602H, Mean Platelet Volume 6.2L, Neutrophils (%) (Auto) , Lymphocytes (%) (Auto) , Monocytes (%) (Auto) , Eosinophils (%) (Auto) , Basophils (%) (Auto) , Differential Total Cells Counted 100, Neutrophils % (Manual) 86H, Lymphocytes % (Manual) 7L, Monocytes % (Manual) 4, Eosinophils % (Manual) 3, Basophils % ( Manual) 0, Band Neutrophils 0, Platelet Estimate IncreasedH, Platelet Morphology Normal, Anisocytosis 1+, Macrocytosis 1+, Sodium Level 142, Potassium Level 3.4L, Chloride Level 107, Carbon Dioxide Level 24, Anion Gap 11 , Blood Urea Nitrogen 15, Creatinine 0.7, Estimat Glomerular Filtration Rate > 60, Glucose Level 120H, Calcium Level 8.5, Total Bilirubin 0.5, Aspartate Amino Transf (AST/SGOT) 110H, Alanine Aminotransferase (ALT/SGPT) 91H, Alkaline Phosphatase 111, Ammonia 31, Total Protein 7.9, Albumin 1.9L, Globulin 6.0, Albumin/Globulin Ratio 0.3L, Lipase > 2000H Height (Feet): 5 Height (Inches): 9.00 Weight (Pounds): 160 Objective General Appearance: alert, stable, awake Lines, tubes and drains: peripheral HEENT: normocephalic, atraumatic, anicteric, PERRL Neck: non-tender, normal alignment Respiratory/Chest: chest wall non-tender, mechanical breath sounds, no respiratory distress, no accessory muscle use Cardiovascular/Chest: normal peripheral pulses, normal rate, regular rhythm Abdomen: normal bowel sounds, soft, no organomegaly, no mass, drain in place, Extremities: normal range of motion, non-tender, normal inspection, no calf tenderness, normal capillary refill, non-pitting. +asterixis Skin Exam: normal pigmentation, warm/dry Neurologic: no motor/sensory deficits, alert, oriented x 3, responsive, normal mood/affect Eulogio Siddiqi MD Jul 21, 2018 09:14
[2018-07-21] MEDS ORDERED: Isovue-300 100ml vial INJ PRN (09:15)
[2018-07-21] MEDS: Docusate 100mg/10ml Liq NG SCH ×2 (09:26→17:10)
[2018-07-21] MEDS: Metoprolol 25mg tab NG SCH (09:26)
[2018-07-21] MEDS: Lactulose 20gm/30ml UDC NG SCH (09:26)
[2018-07-21] MEDS: Pantoprazole Inj IVP SCH ×2 (09:35→20:01)
[2018-07-21] MEDS: Heparin 5000 units/ml inj SUBQ SCH ×2 (09:36→20:02)
[2018-07-21] MEDS ORDERED: Tubing IV Secondary IV ONE ×2 (10:50→14:12)
[2018-07-21 12:00] VITALS: BP 120/81
--- NOTE | 2018-07-21 12:15 | Diagnostic Imaging Report ---
EXAM: XR Chest, 1 View CLINICAL HISTORY: IMP TECHNIQUE: Frontal view of the chest. COMPARISON: Chest x-ray 07/19/18 837 FINDINGS: Lungs: Increasing opacities of the right lung. Pleural space: Slightly increasing right pleural effusion. No pneumothorax. Heart: Unremarkable. No cardiomegaly. Mediastinum: Unremarkable. Bones/joints: Unremarkable. Tubes, lines and devices: Left PICC line tip appears further advanced into the right atrium. NG tube traverses diaphragm, tip is not seen. Upper abdomen: Midepigastric gastric surgical clips. IMPRESSION: 1. Left PICC line tip appears further advanced into the right atrium. 2. Increasing opacities of the right lung. 3. Slightly increasing right pleural effusion. [employer] 07/21/18 12:23 Verify Receipt with Nurse Verified receipt with LAUREN Garvey on for JAVIER Lema on 07/21 12:23 (-08:00)
--- NOTE | 2018-07-21 12:35 | NUR ---
NURSE NOTES: Left message to Dr. Siddiqi regarding the chest xray result today. Regarding PICC placement. Awaiting for call back, held PICC line use at this time.
[2018-07-21] MEDS ORDERED: NS 500ML ONE (14:12)
--- NOTE | 2018-07-21 15:00 | NUR ---
NURSE NOTES: Dr. Siddiqi said that if patient is not having Arrythmia, then continue to use PICC line. Charge nurse and house supp made aware.
[2018-07-21 16:00] VITALS: BP 125/74
--- NOTE | 2018-07-21 17:56 | Pulmonology Progress Note ---
Assessment/Plan Assessment/Plan Pulmonary Progress Note Assessment/Plan Problems: (1) Respiratory disorder with ventilator dependence (2) Gangrenous cholecystitis (3) S/P cholecystectomy (4) Abnormal LFTs (5) Cholecystitis, acute (6) Hepatitis C (7) Alcoholic pancreatitis (8) Pancreatitis, acute (9) Alcohol abuse (10) Fatty liver (11) Tobacco use (12) Blood loss anemia (13) Pneumonia Respiratory: monitor respiratory rate, adjust FIO2, other - HHN's Cardiac: continue to monitor HR/BP Renal: check electrolytes Infectious Disease: check cultures, continue antibiotics - Vanco, Jair, Flucon per ID Gastrointestinal: other - NPO, TPN, GI and kevin recs Endocrine: monitor blood sugar Hematologic: monitor H/H Neurologic: keep patient comfortable Prophylaxis: Protonix, Heparin Disposition: transfer to - [facility] Time Spent (Minutes): 40 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, ID, GI, 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 Discussed with: nurses, consultants Objective Vital Signs Noted Status: obtunded Condition: improving HEENT: atraumatic, normocephalic Lungs: clear Heart: HR/BP stable Abdomen: soft, non-tender, active bowel sounds, other - dressed, JUNE Extremities: no C/C/E Labs: Laboratory Tests Test 07/19/18 04:08 07/19/18 08:05 White Blood Count 21.8 K/UL (4.8-10.8) H Red Blood Count 3.18 M/UL (4.70-6.10) L Hemoglobin 11.1 G/DL (14.2-18.0) L Hematocrit 32.2 % (42.0-52.0) L Mean Corpuscular Volume 102 FL (80-99) H Mean Corpuscular Hemoglobin 35.0 PG (27.0-31.0) H Mean Corpuscular Hemoglobin Concent 34.5 G/DL (32.0-36.0) Red Cell Distribution Width 14.0 % (11.6-14.8) Platelet Count 692 K/UL (150-450) H Mean Platelet Volume 6.4 FL (6.5-10.1) L Neutrophils (%) (Auto) % (45.0-75.0) Lymphocytes (%) (Auto) % (20.0-45.0) Monocytes (%) (Auto) % (1.0-10.0) Eosinophils (%) (Auto) % (0.0-3.0) Basophils (%) (Auto) % (0.0-2.0) Differential Total Cells Counted 100 Neutrophils % (Manual) 90 % (45-75) H Lymphocytes % (Manual) 6 % (20-45) L Monocytes % (Manual) 4 % (1-10) Eosinophils % (Manual) 0 % (0-3) Basophils % (Manual) 0 % (0-2) Band Neutrophils 0 % (0-8) Platelet Estimate Increased H Platelet Morphology Normal Macrocytosis 1+ Prothrombin Time 11.5 SEC (9.30-11.50) Prothromb Time International Ratio 1.1 (0.9-1.1) Activated Partial Thromboplast Time 28 SEC (23-33) Sodium Level 142 MMOL/L (136-145) Potassium Level 3.6 MMOL/L (3.5-5.1) Chloride Level 107 MMOL/L (98-107) Carbon Dioxide Level 25 MMOL/L (21-32) Anion Gap 10 mmol/L (5-15) Blood Urea Nitrogen 12 mg/dL (7-18) Creatinine 0.8 MG/DL (0.55-1.30) Estimat Glomerular Filtration Rate > 60 mL/min (>60) Glucose Level 114 MG/DL (74-106) H Calcium Level 8.4 MG/DL (8.5-10.1) L Phosphorus Level 2.6 MG/DL (2.5-4.9) Magnesium Level 2.4 MG/DL (1.8-2.4) Total Bilirubin 0.4 MG/DL (0.2-1.0) Aspartate Amino Transf (AST/SGOT) 60 U/L (15-37) H Alanine Aminotransferase (ALT/SGPT) 52 U/L (12-78) Alkaline Phosphatase 75 U/L (46-116) Total Protein 7.9 G/DL (6.4-8.2) Albumin 1.9 G/DL (3.4-5.0) L Globulin 6.0 g/dL Albumin/Globulin Ratio 0.3 (1.0-2.7) L Lipase > 2000 U/L (73-393) H Urine Color Yellow Urine Appearance Clear Urine pH 6 (4.5-8.0) Urine Specific [place] 1.015 (1.005-1.035) Urine Protein 3+ (NEGATIVE) H Urine Glucose (UA) Negative (NEGATIVE) Urine Ketones 1+ (NEGATIVE) H Urine Blood 3+ (NEGATIVE) H Urine Nitrite Negative (NEGATIVE) Urine Bilirubin Negative (NEGATIVE) Urine Urobilinogen Normal MG/DL (0.0-1.0) Urine Leukocyte Esterase 1+ (NEGATIVE) H Urine RBC 5-10 /HPF (0 - 0) H Urine WBC 2-4 /HPF (0 - 0) Urine Squamous Epithelial Cells Occasional /LPF Urine Bacteria Few /HPF (NONE) Urine Yeast Few /HPF (NONE) H Subjective ROS Limited/Unobtainable: No Allergies: Coded Allergies: No Known Allergies (Unverified , 06/01/16) Objective Last 24 Hour Vital Signs Date Time Temp Pulse Resp B/P (MAP) Pulse Ox O2 Delivery O2 Flow Rate FiO2 07/21/18 16:34 105 07/21/18 16:00 Nasal Cannula 3.0 Nasal Cannula 3.0 07/21/18 16:00 99.2 107 24 125/74 (91) 95 07/21/18 13:02 99 20 99 Nasal Cannula 3.0 32 07/21/18 12:56 98 18 98 Nasal Cannula 3.0 32 07/21/18 12:01 Nasal Cannula 3.0 Nasal Cannula 3.0 07/21/18 12:00 97.7 101 26 120/81 (94) 97 07/21/18 11:54 100 07/21/18 09:26 102 134/78 07/21/18 09:26 102 134/78 07/21/18 08:30 93 07/21/18 08:01 Nasal Cannula 3.0 Nasal Cannula 3.0 07/21/18 08:00 97.7 102 26 134/78 (96) 97 07/21/18 06:53 97 Nasal Cannula 3.0 32 07/21/18 06:53 Nasal Cannula 3.0 32 07/21/18 06:47 106 18 96 Nasal Cannula 3.0 32 07/21/18 06:45 101 18 97 Nasal Cannula 3.0 32 07/21/18 04:00 113 07/21/18 04:00 Nasal Cannula 3.0 Nasal Cannula 3.0 07/21/18 04:00 97.5 112 21 130/86 (101) 97 07/21/18 01:34 104 25 100 Nasal Cannula 3.0 32 07/21/18 01:26 103 24 95 Nasal Cannula 3.0 32 07/21/18 00:00 Nasal Cannula 3.0 Nasal Cannula 3.0 07/21/18 00:00 100 07/21/18 00:00 97.5 96 25 124/74 (91) 99 07/20/18 20:00 98.6 105 24 134/85 (101) 98 07/20/18 20:00 104 07/20/18 20:00 Nasal Cannula 3.0 Nasal Cannula 3.0 07/20/18 19:30 104 25 100 Nasal Cannula 3.0 32 07/20/18 19:24 Nasal Cannula 3.0 32 07/20/18 19:24 97 Nasal Cannula 3.0 32 07/20/18 19:23 101 24 97 Nasal Cannula 3.0 32 Intake and Output 07/20/18 07/21/18 19:00 07:00 Intake Total 1236 ml 1414 ml Output Total 1090 ml 895 ml Balance 146 ml 519 ml IV Total 1236 ml 1414 ml Output Urine Total 1000 ml 850 ml Drainage Total 90 ml 45 ml # Bowel Movements 6 7 Microbiology Date/Time Source Procedure Growth Status 07/18/18 20:25 Blood Blood Culture - Preliminary NO GROWTH AFTER 48 HOURS Resulted 07/18/18 20:10 Blood Blood Culture - Preliminary NO GROWTH AFTER 48 HOURS Resulted 07/19/18 07:58 Sputum Induced Gram Stain - Final Resulted 07/19/18 07:58 Sputum Culture - Preliminary Gram Negative Akil Nery Albicans Usual Respiratory Carolyn Resulted 07/19/18 08:05 Urine,Clean Catch Urine Culture - Final Nery Albicans Complete Laboratory Tests 07/21/18 04:03: White Blood Count 14.8H, Red Blood Count 3.31L, Hemoglobin 11.5L, Hematocrit 33.8L, Mean Corpuscular Volume 102H, Mean Corpuscular Hemoglobin 34.8H, Mean Corpuscular Hemoglobin Concent 34.1, Red Cell Distribution Width 13.7, Platelet Count 602H, Mean Platelet Volume 6.2L, Neutrophils (%) (Auto) , Lymphocytes (%) (Auto) , Monocytes (%) (Auto) , Eosinophils (%) (Auto) , Basophils (%) (Auto) , Differential Total Cells Counted 100, Neutrophils % (Manual) 86H, Lymphocytes % (Manual) 7L, Monocytes % (Manual) 4, Eosinophils % (Manual) 3, Basophils % ( Manual) 0, Band Neutrophils 0, Platelet Estimate IncreasedH, Platelet Morphology Normal, Anisocytosis 1+, Macrocytosis 1+, Sodium Level 142, Potassium Level 3.4L, Chloride Level 107, Carbon Dioxide Level 24, Anion Gap 11 , Blood Urea Nitrogen 15, Creatinine 0.7, Estimat Glomerular Filtration Rate > 60, Glucose Level 120H, Calcium Level 8.5, Total Bilirubin 0.5, Aspartate Amino Transf (AST/SGOT) 110H, Alanine Aminotransferase (ALT/SGPT) 91H, Alkaline Phosphatase 111, Ammonia 31, Total Protein 7.9, Albumin 1.9L, Globulin 6.0, Albumin/Globulin Ratio 0.3L, Lipase > 2000H Current Medications Medications (Trade) Dose Ordered Sig/Mukesh Route PRN Reason Start Time Stop Time Status Last Admin Dose Admin Acetaminophen (Tylenol) 650 mg Q4H PRN RECTAL Prn for Temp >100.5 07/19/18 19:00 08/14/18 18:59 07/19/18 20:20 Al Hydroxide/Mg Hydroxide (Mylanta) 15 ml Q6H PRN NG DYSPEPSIA 07/19/18 19:00 08/11/18 18:59 Albuterol/ Ipratropium (Albuterol/ Ipratropium) 3 ml Q6HRT HHN 07/19/18 19:00 07/22/18 18:59 07/21/18 13:01 Amlodipine Besylate (Norvasc) 10 mg DAILY NG 07/20/18 09:00 08/04/18 13:48 07/21/18 09:26 Chlorhexidine Gluconate (Estrella-Hex 2%) 1 applic DAILY@2000 TOPIC 07/19/18 20:00 08/15/18 19:59 07/20/18 20:04 Clonidine HCl (Catapres Tab) 0.1 mg Q8H PRN NG hypertension 07/19/18 19:00 08/04/18 18:59 Dextrose (Dextrose 50%) 25 ml Q30M PRN IV Hypoglycemia 07/19/18 19:00 08/17/18 00:00 Dextrose (Dextrose 50%) 50 ml Q30M PRN IV hypoglycemia 07/19/18 19:00 08/17/18 00:00 Diphenhydramine HCl (Benadryl) 12.5 mg Q6H PRN IVP Itching/Pruritis 07/19/18 19:00 08/11/18 18:59 Docusate Sodium (Colace) 100 mg TWICE A DAY NG 07/20/18 09:00 08/12/18 08:59 07/21/18 17:10 Fat Emulsion Intravenous 192 ml/Amino Acids/ Electrolytes/ Dextrose 1,872 ml @ 78 mls/hr Q24H IV 07/19/18 20:00 08/16/18 19:59 07/20/18 20:00 Fluconazole/ Sodium Chloride 200 ml @ 200 mls/hr Q24H IV 07/20/18 16:30 07/25/18 16:29 07/21/18 17:04 Heparin Sodium (Porcine) (Heparin 5000 units/ml) 5,000 units Q12HR SUBQ 07/19/18 21:00 08/02/18 08:59 07/21/18 09:36 Hydromorphone HCl (Dilaudid) 0.5 mg Q3H PRN IVP Pain Score 1-3 07/19/18 19:00 07/22/18 18:59 Hydromorphone HCl (Dilaudid) 1 mg Q3H PRN IVP pain score 4-6 07/19/18 19:00 07/26/18 18:59 Hydromorphone HCl (Dilaudid) 2 mg Q3H PRN IVP pain score 7-10 07/19/18 19:00 07/26/18 18:59 Insulin Aspart (NovoLOG) No Dose Q6HR SUBQ 07/20/18 00:00 08/17/18 00:00 07/21/18 06:03 Lorazepam (Ativan 2mg/ml 1ml) 1 mg Q1H PRN IV For Anxiety 07/19/18 19:00 07/26/18 18:59 Magnesium Hydroxide (Mom) 30 ml BIDPRN PRN NG Constipation 07/19/18 19:00 08/11/18 18:59 Meropenem 1 gm/ Sodium Chloride 100 ml @ 200 mls/hr Q8HR IVPB 07/19/18 22:00 07/23/18 15:59 07/21/18 15:09 Metoprolol Tartrate (Lopressor) 25 mg DAILY NG 07/20/18 09:00 08/13/18 20:29 07/21/18 09:26 Nicotine (Nicoderm) 1 patch Q24H TDERMAL 07/20/18 18:00 08/08/18 17:59 07/21/18 17:10 Ondansetron HCl (Zofran) 4 mg Q6H PRN IVP Nausea & Vomiting 07/19/18 19:00 08/01/18 18:59 Pantoprazole (Protonix) 40 mg EVERY 12 HOURS IVP 07/19/18 21:00 08/09/18 20:59 07/21/18 09:35 Phytonadione (Vitamin K) 10 mg QWEEK SUBQ 07/24/18 20:00 08/23/18 19:59 Vancomycin HCl (Vanco rx to dose) 1 ea DAILY PRN MISC Per rx protocol 07/19/18 19:00 08/18/18 18:59 Vancomycin HCl/ Dextrose 275 ml @ 137.5 mls/ hr Q12H IVPB 07/20/18 18:00 07/25/18 17:59 07/21/18 06:22 Parker Borjas MD Jul 21, 2018 17:56
--- NOTE | 2018-07-21 19:30 | NUR ---
NURSE NOTES: Report received from Patricia Sousa RN. Patient seen in bed in melgar position, alert, responsive. Continues with oxygen 3L/min via N/C with no acute respiratory distress present at this time. no S/Sx of pain present. NGT noted to right nare and is intact. Serrano cath is intact, urine is flowing. Jordan prat drain noted to right abdomen area and is intact. PICC line present to left upper arm and is intact. Currently on TPN at 78cc/hr. Bed is in lowest position. call light is within reach. Will continue to monitor.
[2018-07-21 20:00] VITALS: BP 141/78
[2018-07-21] MEDS: Dyna-Hex 2% Top Sol 2oz TOPIC SCH (20:01)
[2018-07-21] MEDS: FAT EMULSION 20% IV SCH (20:04)
[2018-07-21] MEDS: TPN IV SCH (20:04)
[2018-07-22] VITALS: BP 129/73
[2018-07-22] MEDS: Albuterol/Ipratropium 3ml neb HHN SCH ×3 (01:11→13:44)
[2018-07-22 04:00] VITALS: BP 136/74
[2018-07-22 05:46] LABS: BASOPHILS % (AUTO) 0.6 % (0.0-2.0); EOSINOPHILS % (AUTO) 2.7 % (0.0-3.0); HEMATOCRIT 35.8 % (42.0-52.0); HEMOGLOBIN 12.2 G/DL (14.2-18.0); MEAN CORPUSCULAR VOLUME 102 FL (80-99); MONOCYTES % (AUTO) 4.1 % (1.0-10.0); NEUTROPHILS % (AUTO) 82.5 % (45.0-75.0); PLATELET COUNT 632 K/UL (150-450); RED BLOOD COUNT 3.53 M/UL (4.70-6.10); RED CELL DISTRIBUTION WIDTH 13.8 % (11.6-14.8); WHITE BLOOD COUNT 16.4 K/UL (4.8-10.8)
[2018-07-22] MEDS: NovoLOG Insulin Flexpen SUBQ SCH ×3 (05:47→17:52)
[2018-07-22 05:54] LABS: ALANINE AMINOTRANSFERASE 126 U/L (12-78); ALBUMIN/GLOBULIN RATIO 0.3 (1.0-2.7); ALKALINE PHOSPHATASE 116 U/L (46-116); ANION GAP 9 mmol/L (5-15); ASPARTATE AMINO TRANSFERASE 135 U/L (15-37); BILIRUBIN,TOTAL 0.6 MG/DL (0.2-1.0); BLOOD UREA NITROGEN 15 mg/dL (7-18); CALCIUM 8.9 MG/DL (8.5-10.1); CARBON DIOXIDE 25 MMOL/L (21-32); CHLORIDE 106 MMOL/L (98-107); CREATININE 0.9 MG/DL (0.55-1.30); POTASSIUM 3.7 MMOL/L (3.5-5.1); SODIUM 140 MMOL/L (136-145)
[2018-07-22 06:33] LABS: AMYLASE 315 U/L (25-115)
[2018-07-22] MEDS: Vancomycin 1.5gm/D5W 275ml IVPB SCH ×2 (07:12→18:20)
--- NOTE | 2018-07-22 07:29 | NUR ---
HAND-OFF: Report given to JAVIER Banerjee. Vancomycin 1.5g IV given. Vancomycin trough confirmed with pharmacist trell Diana to administer.
--- NOTE | 2018-07-22 07:30 | NUR ---
NURSE NOTES: Received patient from JAVIER Castellanos. Patient in bed, awake, alert, and verbally responsive. Tolerating 3L NC. In no respiratory distress. Currently NPO. NGT on the right nare is in placed. Receiving TPN ay 78 ml/hour. PICC on AVI no s/s of infiltration. Jordan baldwin drain on the right abdomen. vehicle monitor technician in placed. Serrano catheter in placed and draining via gravity. Per PM Nurse, doctors are aware for the latest chest x-ray that PICC is advanced to the R atrium. Call light within reach. Bed in lowest position with side rails up. Will continue to follow plan of care.
[2018-07-22 08:00] VITALS: BP 132/80
--- NOTE | 2018-07-22 08:28 | General Progress Note ---
Assessment/Plan Problem List: (1) Cholecystitis, acute ICD Codes: K81.0 - Acute cholecystitis SNOMED: 18303947 (2) Abnormal LFTs ICD Codes: R79.89 - Other specified abnormal findings of blood chemistry SNOMED: 359818973 (3) Fatty liver ICD Codes: K76.0 - Fatty (change of) liver, not elsewhere classified SNOMED: 224143913 Assessment/Plan Assessment/Plan SUMMARY OF FINDINGS: 1. 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 2. Status post ERCP with sphincterotomy, balloon assistance sludge and some pus extraction from the common bile duct and then stent placement. s/p open jocelyn, now in ICU with pancreatitis hepatitis C positive Pancreatitis RECOMMENDATIONS: follow up surgical recommendations Maintain n.p.o. with IV fluids given elevated lipase levels, continue TPN prn transfusions fu lipase fu labs The patient will need repeat ERCP in 6 to 8 weeks for stent removal. outpatient Hep C tx repeat CT ordered but canceled per surg recs cont TPN repeat labs Subjective ROS Limited/Unobtainable: No Allergies: Coded Allergies: No Known Allergies (Unverified , 06/01/16) Objective Last 24 Hour Vital Signs Date Time Temp Pulse Resp B/P (MAP) Pulse Ox O2 Delivery O2 Flow Rate FiO2 07/22/18 08:00 97.3 108 23 132/80 (97) 95 07/22/18 07:39 108 22 99 Nasal Cannula 3.0 32 07/22/18 07:21 94 18 98 Nasal Cannula 3.0 28 07/22/18 07:21 Nasal Cannula 3.0 32 07/22/18 07:21 98 Nasal Cannula 3.0 32 07/22/18 04:00 Nasal Cannula 3.0 Nasal Cannula 3.0 07/22/18 04:00 98.2 102 22 136/74 (94) 95 07/22/18 03:38 102 07/22/18 01:23 105 25 99 Nasal Cannula 3.0 32 07/22/18 01:11 103 22 96 Nasal Cannula 3.0 32 07/22/18 00:00 Nasal Cannula 3.0 Nasal Cannula 3.0 07/22/18 00:00 97.9 103 21 129/73 (91) 97 07/21/18 23:37 105 07/21/18 20:00 Nasal Cannula 3.0 Nasal Cannula 3.0 07/21/18 20:00 98.1 113 24 141/78 (99) 96 07/21/18 20:00 110 07/21/18 19:23 105 25 99 Nasal Cannula 3.0 32 07/21/18 19:18 Nasal Cannula 3.0 32 07/21/18 19:18 97 Nasal Cannula 3.0 32 07/21/18 19:13 102 23 97 Nasal Cannula 3.0 32 07/21/18 16:34 105 07/21/18 16:00 Nasal Cannula 3.0 Nasal Cannula 3.0 07/21/18 16:00 99.2 107 24 125/74 (91) 95 07/21/18 13:02 99 20 99 Nasal Cannula 3.0 32 07/21/18 12:56 98 18 98 Nasal Cannula 3.0 32 07/21/18 12:01 Nasal Cannula 3.0 Nasal Cannula 3.0 07/21/18 12:00 97.7 101 26 120/81 (94) 97 07/21/18 11:54 100 07/21/18 09:26 102 134/78 07/21/18 09:26 102 134/78 07/21/18 08:30 93 Intake and Output 07/21/18 07/22/18 19:00 07:00 Intake Total 902 ml 1611.0 ml Output Total 1340 ml 1180 ml Balance -438 ml 431.0 ml IV Total 902 ml 1611.0 ml Output Urine Total 1300 ml 1150 ml Drainage Total 40 ml 30 ml # Bowel Movements 1 5 Laboratory Tests 07/22/18 04:55: White Blood Count 16.4H, Red Blood Count 3.53L, Hemoglobin 12.2L, Hematocrit 35.8L, Mean Corpuscular Volume 102H, Mean Corpuscular Hemoglobin 34.6H, Mean Corpuscular Hemoglobin Concent 34.1, Red Cell Distribution Width 13.8, Platelet Count 632H, Mean Platelet Volume 6.5, Neutrophils (%) (Auto) 82.5H, Lymphocytes (%) (Auto) 10.0L, Monocytes (%) (Auto) 4.1, Eosinophils (%) (Auto) 2.7, Basophils (%) (Auto) 0.6, Sodium Level 140, Potassium Level 3.7, Chloride Level 106, Carbon Dioxide Level 25, Anion Gap 9, Blood Urea Nitrogen 15, Creatinine 0.9, Estimat Glomerular Filtration Rate > 60, Glucose Level 115H, Calcium Level 8.9, Total Bilirubin 0.6, Aspartate Amino Transf (AST/SGOT) 135H, Alanine Aminotransferase (ALT/SGPT) 126H, Alkaline Phosphatase 116, Total Protein 8.3H, Albumin 2.0L, Globulin 6.3, Albumin/Globulin Ratio 0.3L, Amylase Level 315H, Lipase > 2000H, Vancomycin Level Trough 13.2H Height (Feet): 5 Height (Inches): 9.00 Weight (Pounds): 160 General Appearance: lethargic EENT: normal ENT inspection Neck: supple Cardiovascular: tachycardia Respiratory/Chest: decreased breath sounds Abdomen: hypoactive bowel sounds, tender Extremities: non-tender Toñito Yip MD Jul 22, 2018 08:28
[2018-07-22] MEDS: Pantoprazole Inj IVP SCH ×2 (08:42→21:27)
[2018-07-22] MEDS: Docusate 100mg/10ml Liq NG SCH ×2 (08:42→18:00)
[2018-07-22] MEDS: Heparin 5000 units/ml inj SUBQ SCH ×2 (08:44→21:00)
[2018-07-22] MEDS: Metoprolol 25mg tab NG SCH (08:46)
--- NOTE | 2018-07-22 09:31 | General Progress Note ---
Assessment/Plan Assessment/Plan #Sepsis #Acute purulent gangrenous cholecystitis. #klebsiella cholecystitis #acute Hypoxic respiratory failure #Acute Metabolic Encephalopathy - due to alcohol withdrawal and sepsis - meropenem, vancomycin and diflucan - bcx x 2 ngtd - s/p ercp 07/12 - gen surg consulted, s/p lap jocelyn converted to open jocelyn 07/12 - extubated on 07/16.19 - off o2 ncl - pulm consult appreciated - pain control - appreciate surg recs - fluids - tpn #Acute Blood Loss Anemia - due to recent surgery - no overt bleeding noted currently - hgb 6.8 07/15, transfused 2U, 9.7 (07/16) - stable #Pleural Effusions - b/l - per mrcp - stable - pulm consult apprecaited #Alcohol Pancreatitis #Intractable abdominal pain #intractable nausea/vomiting #Transaminitis #Alcohol Hepatitis #Alcohol withdrawals #Fatty Liver Disease #Hepatitis C - LFTs 446/532 - Lipase 687 - due to alcohol abuse - INR 1.0 - discriminant function, 4.5 , no need for steroids - US abd completed and reviewed, showing fatty liver disease. GS present, no obstruction noted - ppi - PRN antiemetics, zofran prn - Banana bag - close lab monitoring - IVF - monitor carefully for withdrawals - tube feeds held due to worsening pancreatitis - TPN - Per GI, will need ERCP in 6-8 weeks for stent removal #Failure to thrive - due to alcohol withdrawals and the above - alcoholic pancreatitis - fluids #Alcohol Abuse - educated on cessation for 15 mins - patient states he understands and will try to quit - RN notified to monitor carefully with withdrawals - prn ativan - ciwa #Uncontrolled HTN - clonidine 0.1 mg po prn - amlodipine 10mg qday - due to withdrawals #Tobacco abuse - smokes 1ppd - educated on smoking cessation for over 15 mins, states he understands the risks of smoking and will try to quit diet: NPO DVT Prophylaxis: SCD, HSQ Code Status: Full Hospital Classification Declaration: Based on this initial evaluation, and depending on the patient's clinical course, I anticipate that this patient will require hospitalization for 2-3days for alcohol abuse, pancreatitis and close respiratory/hemodynamic monitoring. I have reviewed all labs, imaging and medications Disposition: Once the patient is stable to leave the hospital, I anticipate the patient will likely be discharged to the following environment: home I spent over 43 minutes on this patient's case, and over 50% of that time was spent on counseling and/or care . Discussed with patient/family, nursing staff , SW/CM regarding clinical status, treatment course, and disposition planning. Time of note may not reflect time of encounter. ------- Date of Discussion: 07/03/18 A [id number] discussion with the patient regarding the patient's advanced care planning took place during this hospitalization on the above date. The discussion included the explanation and discussion of advance directives and associated forms/documents, as well as the patient's current code status. We also discussed at length the patient's medical conditions (both acute and chronic), general prognosis, treatment options, and goals of care. The following summarizes the discussion: Advance Care Planning/Goals of Care: - Will attempt to fill out an AD and/or POLST with the patient prior to discharge, if not already completed - Continue current evaluation and management of any acute and chronic medical issues - Will continue to support the patient/family - Will continue to discuss both short- and long-term goals of care DPOA-HC/Surrogate Decision Maker: : Bonnie Crenshaw Code Status: Full Code AD Forms/Documents Completed: Deferred A total of 34 minutes was spent on this discussion, including counseling, answering questions, and completing, if any, pertinent advanced care planning forms/documents. Subjective Date patient seen: Jul 22, 2018 Allergies: Coded Allergies: No Known Allergies (Unverified , 06/01/16) Subjective f/u pancreatitis, cholecystitis, sepsis, alcoholic hepatitis, nausea, alcohol abuse, alcohol withdrawals s/p ercp 07/12 and subsequent open jocelyn, full of pus, gangrenous jocelyn, drain left in extubated 07/16 transferred out of the icu yesterday afternoon TPN stable improving slowly awake ROS: 14 point ROS reviewed and negative except per above Objective Last 24 Hour Vital Signs Date Time Temp Pulse Resp B/P (MAP) Pulse Ox O2 Delivery O2 Flow Rate FiO2 07/22/18 08:46 108 132/80 07/22/18 08:46 108 132/80 07/22/18 08:00 97.3 108 23 132/80 (97) 95 07/22/18 07:47 107 07/22/18 07:39 108 22 99 Nasal Cannula 3.0 32 07/22/18 07:21 94 18 98 Nasal Cannula 3.0 28 07/22/18 07:21 Nasal Cannula 3.0 32 07/22/18 07:21 98 Nasal Cannula 3.0 32 07/22/18 04:00 Nasal Cannula 3.0 Nasal Cannula 3.0 07/22/18 04:00 98.2 102 22 136/74 (94) 95 07/22/18 03:38 102 07/22/18 01:23 105 25 99 Nasal Cannula 3.0 32 07/22/18 01:11 103 22 96 Nasal Cannula 3.0 32 07/22/18 00:00 Nasal Cannula 3.0 Nasal Cannula 3.0 07/22/18 00:00 97.9 103 21 129/73 (91) 97 07/21/18 23:37 105 07/21/18 20:00 Nasal Cannula 3.0 Nasal Cannula 3.0 07/21/18 20:00 98.1 113 24 141/78 (99) 96 07/21/18 20:00 110 07/21/18 19:23 105 25 99 Nasal Cannula 3.0 32 07/21/18 19:18 Nasal Cannula 3.0 32 07/21/18 19:18 97 Nasal Cannula 3.0 32 07/21/18 19:13 102 23 97 Nasal Cannula 3.0 32 07/21/18 16:34 105 07/21/18 16:00 Nasal Cannula 3.0 Nasal Cannula 3.0 07/21/18 16:00 99.2 107 24 125/74 (91) 95 07/21/18 13:02 99 20 99 Nasal Cannula 3.0 32 07/21/18 12:56 98 18 98 Nasal Cannula 3.0 32 07/21/18 12:01 Nasal Cannula 3.0 Nasal Cannula 3.0 07/21/18 12:00 97.7 101 26 120/81 (94) 97 07/21/18 11:54 100 Intake and Output 07/21/18 07/22/18 19:00 07:00 Intake Total 902 ml 1611.0 ml Output Total 1340 ml 1180 ml Balance -438 ml 431.0 ml IV Total 902 ml 1611.0 ml Output Urine Total 1300 ml 1150 ml Drainage Total 40 ml 30 ml # Bowel Movements 1 5 Laboratory Tests 07/22/18 04:55: White Blood Count 16.4H, Red Blood Count 3.53L, Hemoglobin 12.2L, Hematocrit 35.8L, Mean Corpuscular Volume 102H, Mean Corpuscular Hemoglobin 34.6H, Mean Corpuscular Hemoglobin Concent 34.1, Red Cell Distribution Width 13.8, Platelet Count 632H, Mean Platelet Volume 6.5, Neutrophils (%) (Auto) 82.5H, Lymphocytes (%) (Auto) 10.0L, Monocytes (%) (Auto) 4.1, Eosinophils (%) (Auto) 2.7, Basophils (%) (Auto) 0.6, Sodium Level 140, Potassium Level 3.7, Chloride Level 106, Carbon Dioxide Level 25, Anion Gap 9, Blood Urea Nitrogen 15, Creatinine 0.9, Estimat Glomerular Filtration Rate > 60, Glucose Level 115H, Calcium Level 8.9, Total Bilirubin 0.6, Aspartate Amino Transf (AST/SGOT) 135H, Alanine Aminotransferase (ALT/SGPT) 126H, Alkaline Phosphatase 116, Total Protein 8.3H, Albumin 2.0L, Globulin 6.3, Albumin/Globulin Ratio 0.3L, Amylase Level 315H, Lipase > 2000H, Vancomycin Level Trough 13.2H Height (Feet): 5 Height (Inches): 9.00 Weight (Pounds): 160 Objective General Appearance: alert, stable, awake Lines, tubes and drains: peripheral HEENT: normocephalic, atraumatic, anicteric, PERRL Neck: non-tender, normal alignment Respiratory/Chest: chest wall non-tender, mechanical breath sounds, no respiratory distress, no accessory muscle use Cardiovascular/Chest: normal peripheral pulses, normal rate, regular rhythm Abdomen: normal bowel sounds, soft, no organomegaly, no mass, drain in place, Extremities: normal range of motion, non-tender, normal inspection, no calf tenderness, normal capillary refill, non-pitting. +asterixis Skin Exam: normal pigmentation, warm/dry Neurologic: no motor/sensory deficits, alert, oriented x 3, responsive, normal mood/affect Eulogio Siddiqi MD Jul 22, 2018 09:31
[2018-07-22] MEDS ORDERED: NS 275ml ONE (10:36)
[2018-07-22] MEDS ORDERED: Tubing IV Secondary IV ONE (10:36)
[2018-07-22 12:00] VITALS: BP 119/74
--- NOTE | 2018-07-22 13:05 | Infectious Diseases Prog Note ---
Assessment/Plan Assessment/Plan ASSESSMENT AND PLAN: 1. sepsis, klebsiella cholecystitis, enterobacter pna, leukocytosis, fevers, sirs, fungal uti, fungemia risk - meropenem, vancomycin and diflucan - monitor labs, wbc, temps and chest x-ray - dequan/supportive care 3. Smoking use. 4. Anemia. 5. Thrombocytosis. 6. No history of diabetes, hypertension, but he is on Norvasc. 7. No known allergies. 8. Social history positive for smoking and alcohol use. No history of intravenous drug abuse. 9. MAR was noted. 10. Case discussed with RN. 11. Continue treatment per primary consultants. 12. Case discussed at length the ICU nurse, the patient currently in ICU. 13. Continue skin care protocol and pulmonary treatments for now. Subjective Constitutional: Denies: fever HEENT: Reports: congestion Respiratory: Reports: shortness of breath - mild Cardiovascular: Denies: chest pain Gastrointestinal/Abdominal: Denies: nausea, vomiting, diarrhea Genitourinary: Reports: other - + melchor Neurologic: Denies: headache Psychiatric: Denies: depression Skin: Denies: rash Hematologic: Denies: bleeding Musculoskeletal: Denies: pain Allergies: Coded Allergies: No Known Allergies (Unverified , 06/01/16) Objective Vital Signs Last 24 Hour Vital Signs Date Time Temp Pulse Resp B/P (MAP) Pulse Ox O2 Delivery O2 Flow Rate FiO2 07/22/18 12:00 97.9 90 22 119/74 (89) 96 07/22/18 12:00 Nasal Cannula 3.0 Nasal Cannula 3.0 07/22/18 08:46 108 132/80 07/22/18 08:46 108 132/80 07/22/18 08:00 Nasal Cannula 3.0 Nasal Cannula 3.0 07/22/18 08:00 97.3 108 23 132/80 (97) 95 07/22/18 07:47 107 07/22/18 07:39 108 22 99 Nasal Cannula 3.0 32 07/22/18 07:21 94 18 98 Nasal Cannula 3.0 28 07/22/18 07:21 Nasal Cannula 3.0 32 07/22/18 07:21 98 Nasal Cannula 3.0 32 07/22/18 04:00 Nasal Cannula 3.0 Nasal Cannula 3.0 07/22/18 04:00 98.2 102 22 136/74 (94) 95 07/22/18 03:38 102 07/22/18 01:23 105 25 99 Nasal Cannula 3.0 32 07/22/18 01:11 103 22 96 Nasal Cannula 3.0 32 07/22/18 00:00 Nasal Cannula 3.0 Nasal Cannula 3.0 07/22/18 00:00 97.9 103 21 129/73 (91) 97 07/21/18 23:37 105 07/21/18 20:00 Nasal Cannula 3.0 Nasal Cannula 3.0 07/21/18 20:00 98.1 113 24 141/78 (99) 96 07/21/18 20:00 110 07/21/18 19:23 105 25 99 Nasal Cannula 3.0 32 07/21/18 19:18 Nasal Cannula 3.0 32 07/21/18 19:18 97 Nasal Cannula 3.0 32 07/21/18 19:13 102 23 97 Nasal Cannula 3.0 32 07/21/18 16:34 105 07/21/18 16:00 Nasal Cannula 3.0 Nasal Cannula 3.0 07/21/18 16:00 99.2 107 24 125/74 (91) 95 07/21/18 13:02 99 20 99 Nasal Cannula 3.0 32 Height (Feet): 5 Height (Inches): 9.00 Weight (Pounds): 160 General Appearance: no acute distress HEENT: normocephalic, atraumatic, anicteric Respiratory/Chest: crackles/rales, rhonchi - bilaterally Cardiovascular: normal rate, regular rhythm Abdomen: normal bowel sounds, soft, non tender, no organomegaly, non distended Genitourinary: other - + melchor - urine clear Extremities: no cyanosis Skin: no rash 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 Apparent elevation of the right hemidiaphragm is again noted. The left lung demonstrates a very faint opacity in the left midlung which is not evident previously. However, interstitial congestion in the left lung has improved. Impression: Persistent right-sided pleural effusion and fairly extensive parenchymal infiltrate or edema Improved left lung interstitial congestion. Focal patchy left lung abnormality was not evident previously, however, and could represent a small area of infiltrate Chest x-ray - 07/22/18 - COMPARISON: Chest x-ray 07/19/18 837 FINDINGS: Lungs: Increasing opacities of the right lung. Pleural space: Slightly increasing right pleural effusion. No pneumothorax. Heart: Unremarkable. No cardiomegaly. Mediastinum: Unremarkable. Bones/joints: Unremarkable. Tubes, lines and devices: Left PICC line tip appears further advanced into the right atrium. NG tube traverses diaphragm, tip is not seen. Upper abdomen: Midepigastric gastric surgical clips. IMPRESSION: 1. Left PICC line tip appears further advanced into the right atrium. 2. Increasing opacities of the right lung. 3. Slightly increasing right pleural effusion. Microbiology Date/Time Source Procedure Growth Status 07/18/18 20:25 Blood Blood Culture - Preliminary NO GROWTH AFTER 72 HOURS Resulted 07/12/18 20:50 Peritoneal Fluid Gram Stain - Final Complete 07/12/18 20:50 Peritoneal Fluid Aerobic Culture - Final NO GROWTH Complete 07/12/18 20:50 Peritoneal Fluid Anaerobic Culture - Final NO GROWTH AFTER 5 DAYS Complete 07/21/18 14:45 Sputum Induced Gram Stain - Final Resulted 07/21/18 14:45 Sputum Induced Sputum Culture Pending Resulted 07/21/18 04:00 Urine,Clean Catch Urine Culture - Preliminary NO GROWTH Resulted Microbiology Date/Time Source Procedure Growth Status 07/21/18 14:45 Sputum Induced Gram Stain - Final Resulted 07/21/18 14:45 Sputum Induced Sputum Culture Pending Resulted 07/21/18 04:00 Urine,Clean Catch Urine Culture - Preliminary NO GROWTH Resulted Laboratory Tests Test 07/22/18 04:55 White Blood Count 16.4 K/UL (4.8-10.8) H Red Blood Count 3.53 M/UL (4.70-6.10) L Hemoglobin 12.2 G/DL (14.2-18.0) L Hematocrit 35.8 % (42.0-52.0) L Mean Corpuscular Volume 102 FL (80-99) H Mean Corpuscular Hemoglobin 34.6 PG (27.0-31.0) H Mean Corpuscular Hemoglobin Concent 34.1 G/DL (32.0-36.0) Red Cell Distribution Width 13.8 % (11.6-14.8) Platelet Count 632 K/UL (150-450) H Mean Platelet Volume 6.5 FL (6.5-10.1) Neutrophils (%) (Auto) 82.5 % (45.0-75.0) H Lymphocytes (%) (Auto) 10.0 % (20.0-45.0) L Monocytes (%) (Auto) 4.1 % (1.0-10.0) Eosinophils (%) (Auto) 2.7 % (0.0-3.0) Basophils (%) (Auto) 0.6 % (0.0-2.0) Sodium Level 140 MMOL/L (136-145) Potassium Level 3.7 MMOL/L (3.5-5.1) Chloride Level 106 MMOL/L (98-107) Carbon Dioxide Level 25 MMOL/L (21-32) Anion Gap 9 mmol/L (5-15) Blood Urea Nitrogen 15 mg/dL (7-18) Creatinine 0.9 MG/DL (0.55-1.30) Estimat Glomerular Filtration Rate > 60 mL/min (>60) Glucose Level 115 MG/DL (74-106) H Calcium Level 8.9 MG/DL (8.5-10.1) Total Bilirubin 0.6 MG/DL (0.2-1.0) Aspartate Amino Transf (AST/SGOT) 135 U/L (15-37) H Alanine Aminotransferase (ALT/SGPT) 126 U/L (12-78) H Alkaline Phosphatase 116 U/L (46-116) Total Protein 8.3 G/DL (6.4-8.2) H Albumin 2.0 G/DL (3.4-5.0) L Globulin 6.3 g/dL Albumin/Globulin Ratio 0.3 (1.0-2.7) L Amylase Level 315 U/L (25-115) H Lipase > 2000 U/L (73-393) H Vancomycin Level Trough 13.2 ug/mL (5.0-12.0) H Current Medications Medications (Trade) Dose Ordered Sig/[place] Route PRN Reason Start Time Stop Time Status Last Admin Dose Admin Acetaminophen (Tylenol) 650 mg Q4H PRN RECTAL Prn for Temp >100.5 07/19/18 19:00 08/14/18 18:59 07/19/18 20:20 Al Hydroxide/Mg Hydroxide (Mylanta) 15 ml Q6H PRN NG DYSPEPSIA 07/19/18 19:00 08/11/18 18:59 Albuterol/ Ipratropium (Albuterol/ Ipratropium) 3 ml Q6HRT HHN 07/19/18 19:00 07/22/18 18:59 07/22/18 07:20 Amlodipine Besylate (Norvasc) 10 mg DAILY NG 07/20/18 09:00 08/04/18 13:48 07/22/18 08:46 Chlorhexidine Gluconate (Estrella-Hex 2%) 1 applic DAILY@2000 TOPIC 07/19/18 20:00 08/15/18 19:59 07/21/18 20:01 Clonidine HCl (Catapres Tab) 0.1 mg Q8H PRN NG hypertension 07/19/18 19:00 08/04/18 18:59 Dextrose (Dextrose 50%) 25 ml Q30M PRN IV Hypoglycemia 07/19/18 19:00 08/17/18 00:00 Dextrose (Dextrose 50%) 50 ml Q30M PRN IV hypoglycemia 07/19/18 19:00 08/17/18 00:00 Diphenhydramine HCl (Benadryl) 12.5 mg Q6H PRN IVP Itching/Pruritis 07/19/18 19:00 08/11/18 18:59 Docusate Sodium (Colace) 100 mg TWICE A DAY NG 07/20/18 09:00 08/12/18 08:59 07/22/18 08:42 Fat Emulsion Intravenous 192 ml/Amino Acids/ Electrolytes/ Dextrose 1,872 ml @ 78 mls/hr Q24H IV 07/19/18 20:00 08/16/18 19:59 07/21/18 20:04 Fluconazole/ Sodium Chloride 200 ml @ 200 mls/hr Q24H IV 07/20/18 16:30 07/25/18 16:29 07/21/18 17:04 Heparin Sodium (Porcine) (Heparin 5000 units/ml) 5,000 units Q12HR SUBQ 07/19/18 21:00 08/02/18 08:59 07/22/18 08:44 Hydromorphone HCl (Dilaudid) 0.5 mg Q3H PRN IVP Pain Score 1-3 07/19/18 19:00 07/22/18 18:59 Hydromorphone HCl (Dilaudid) 1 mg Q3H PRN IVP pain score 4-6 07/19/18 19:00 07/26/18 18:59 Hydromorphone HCl (Dilaudid) 2 mg Q3H PRN IVP pain score 7-10 07/19/18 19:00 07/26/18 18:59 Insulin Aspart (NovoLOG) No Dose Q6HR SUBQ 07/20/18 00:00 08/17/18 00:00 07/22/18 11:53 Lorazepam (Ativan 2mg/ml 1ml) 1 mg Q1H PRN IV For Anxiety 07/19/18 19:00 07/26/18 18:59 Magnesium Hydroxide (Mom) 30 ml BIDPRN PRN NG Constipation 07/19/18 19:00 08/11/18 18:59 Meropenem 1 gm/ Sodium Chloride 100 ml @ 200 mls/hr Q8HR IVPB 07/19/18 22:00 07/23/18 15:59 07/22/18 05:46 Metoprolol Tartrate (Lopressor) 25 mg DAILY NG 07/20/18 09:00 08/13/18 20:29 07/22/18 08:46 Nicotine (Nicoderm) 1 patch Q24H TDERMAL 07/20/18 18:00 08/08/18 17:59 07/21/18 17:10 Ondansetron HCl (Zofran) 4 mg Q6H PRN IVP Nausea & Vomiting 07/19/18 19:00 08/01/18 18:59 Pantoprazole (Protonix) 40 mg EVERY 12 HOURS IVP 07/19/18 21:00 08/09/18 20:59 07/22/18 08:42 Phytonadione (Vitamin K) 10 mg QWEEK SUBQ 07/24/18 20:00 08/23/18 19:59 Vancomycin HCl (Vanco rx to dose) 1 ea DAILY PRN MISC Per rx protocol 07/19/18 19:00 08/18/18 18:59 Vancomycin HCl/ Dextrose 275 ml @ 137.5 mls/ hr Q12H IVPB 07/20/18 18:00 07/25/18 17:59 07/22/18 07:12 Tyler Madsen MD Jul 22, 2018 13:05
--- NOTE | 2018-07-22 14:00 | NUR ---
NURSE NOTES: Dr. Antonio came and checked patient. He said to continue using PICC line, he will not pull it because it's inplace.
--- NOTE | 2018-07-22 15:24 | General Progress Note ---
Assessment/Plan Assessment/Plan Anemia of chronic disease due to underlying chronic medical issues, multifactorial, pancreatitis --> Anemia workup has been ordered/reviewed as well --> No evidence of hemolysis is noted, peripheral smear has been reviewed. --> Hgb goal >7. Transfuse prn. --> Epogen or iron at this time is not particularly indicated --> Medications have been reviewed # Thrombocytopenia is likely related to underlying reactive processs from pancreatitis, acute, as well as alcoholic intoxication and myelosuppression --> also patient has a history of hepatitis C from prior admission --> smear has been reviewed --> heparin sq is okay if needed for dvt ppx # Erythrocytosis is likely related to dehydration --> hgb goal >7, no evidence of bleeding currently --> given ivf already # Leukocytosis no e/o annie infection --> could be due to reactive process v cholecystitis --> wbc trend: 22-->18-->16-->14-->18 --> peripheral smear has been reviewed --> ercp tomorrow per surg/gi # Pancreatitis with alcohol abuse --> recommend etoh cessation --> amylase and lipase prn -->Status post ERCP with sphincterotomy and stent placement # Transaminitis --> likely related to etoh abuse --> in past seen by gi # Alcohol abuse -- recommend cessation The timing of this note does not necessarily reflect the time of the patient was seen Greatly appreciate consultation! Subjective Constitutional: Denies: no symptoms, chills, diaphoresis, fever, malaise, weakness, other HEENT: Denies: no symptoms, eye pain, blurred vision, tearing, double vision, ear pain, ear discharge, nose pain, nose congestion, throat pain, throat swelling, mouth pain, mouth swelling, other Cardiovascular: Denies: no symptoms, chest pain, edema, irregular heart rate, lightheadedness, palpitations, syncope, other Respiratory: Denies: no symptoms, cough, orthopnea, shortness of breath, SOB with excertion, SOB at rest, sputum, stridor, wheezing, other Gastrointestinal/Abdominal: Denies: no symptoms, abdomen distended, abdominal pain, black stools, tarry stools, blood in stool, constipated, diarrhea, difficulty swallowing, nausea, poor appetite, poor fluid intake, rectal bleeding , vomiting, other Genitourinary: Denies: no symptoms, burning, discharge, frequency, flank pain, hematuria, incontinence, pain, urgency, other Neurologic/Psychiatric: Denies: no symptoms, anxiety, depressed, emotional problems, headache, numbness, paresthesia, pre-existing deficit, seizure, tingling, tremors, weakness, other Endocrine: Denies: no symptoms, excessive sweating, flushing, intolerance to cold, intolerance to heat, increased hunger, increased thirst, increased urine, unexplained weight gain, unexplained weight loss, other Hematologic/Lymphatic: Denies: no symptoms, anemia, easy bleeding, easy bruising, other Allergies: Coded Allergies: No Known Allergies (Unverified , 06/01/16) Subjective 07/05: bp was high today and dc was cancelled until tomorow, on librium 07/06: wbc was high though other counts are better, no f/c 07/10: seen by bedside, heart rate increased, appears agitated, wbc 13.9 07/11: to get ercp tomorrow, surgery and gi following 07/12 ercp, sphincterotomy, stent placement surgery done today, currently having tremors and tachy. wbc 15.9, hgb 14, plt 429 07/13: Pt is intubated, seen by bedside,wbc 22, on abx, no acute distress 07/14: awake and comfortable, still intubated on vent, labs noted hb trending down, wbc 18, hgb 8. 07/16: seen by bedside, awake, comfortable, wbc 14, hgb 9, plt 613 07/17: awake, comfortable, status post ERCP with sphincterotomy wbc 21, hgb 10, plt 689. 07/18; seen by bedside, awake comfortable, on venturi mask, wbc 23, plt 754. 07/19: seen by bedside, awake and comfortable, no events, wbc 21 07/20: now out of the icu, doing better, wbc improved, remains on abx as per ID 07/22: Pt is awake, comfortable, wbc 16, lt 632, on abx Objective Last 24 Hour Vital Signs Date Time Temp Pulse Resp B/P (MAP) Pulse Ox O2 Delivery O2 Flow Rate FiO2 07/22/18 13:30 88 20 99 Nasal Cannula 3.0 32 07/22/18 13:15 95 16 98 Nasal Cannula 3.0 28 07/22/18 12:00 97.9 90 22 119/74 (89) 96 07/22/18 12:00 Nasal Cannula 3.0 Nasal Cannula 3.0 07/22/18 11:50 90 07/22/18 08:46 108 132/80 07/22/18 08:46 108 132/80 07/22/18 08:00 Nasal Cannula 3.0 Nasal Cannula 3.0 07/22/18 08:00 97.3 108 23 132/80 (97) 95 07/22/18 07:47 107 07/22/18 07:39 108 22 99 Nasal Cannula 3.0 32 07/22/18 07:21 94 18 98 Nasal Cannula 3.0 28 07/22/18 07:21 Nasal Cannula 3.0 32 07/22/18 07:21 98 Nasal Cannula 3.0 32 07/22/18 04:00 Nasal Cannula 3.0 Nasal Cannula 3.0 07/22/18 04:00 98.2 102 22 136/74 (94) 95 07/22/18 03:38 102 07/22/18 01:23 105 25 99 Nasal Cannula 3.0 32 07/22/18 01:11 103 22 96 Nasal Cannula 3.0 32 07/22/18 00:00 Nasal Cannula 3.0 Nasal Cannula 3.0 07/22/18 00:00 97.9 103 21 129/73 (91) 97 07/21/18 23:37 105 07/21/18 20:00 Nasal Cannula 3.0 Nasal Cannula 3.0 07/21/18 20:00 98.1 113 24 141/78 (99) 96 07/21/18 20:00 110 07/21/18 19:23 105 25 99 Nasal Cannula 3.0 32 07/21/18 19:18 Nasal Cannula 3.0 32 07/21/18 19:18 97 Nasal Cannula 3.0 32 07/21/18 19:13 102 23 97 Nasal Cannula 3.0 32 07/21/18 16:34 105 07/21/18 16:00 Nasal Cannula 3.0 Nasal Cannula 3.0 07/21/18 16:00 99.2 107 24 125/74 (91) 95 Intake and Output 07/21/18 07/22/18 18:59 06:59 Intake Total 1102 ml 1611.0 ml Output Total 1340 ml 1180 ml Balance -238 ml 431.0 ml IV Total 1102 ml 1611.0 ml Output Urine Total 1300 ml 1150 ml Drainage Total 40 ml 30 ml # Bowel Movements 1 5 Laboratory Tests 07/22/18 04:55: White Blood Count 16.4H, Red Blood Count 3.53L, Hemoglobin 12.2L, Hematocrit 35.8L, Mean Corpuscular Volume 102H, Mean Corpuscular Hemoglobin 34.6H, Mean Corpuscular Hemoglobin Concent 34.1, Red Cell Distribution Width 13.8, Platelet Count 632H, Mean Platelet Volume 6.5, Neutrophils (%) (Auto) 82.5H, Lymphocytes (%) (Auto) 10.0L, Monocytes (%) (Auto) 4.1, Eosinophils (%) (Auto) 2.7, Basophils (%) (Auto) 0.6, Sodium Level 140, Potassium Level 3.7, Chloride Level 106, Carbon Dioxide Level 25, Anion Gap 9, Blood Urea Nitrogen 15, Creatinine 0.9, Estimat Glomerular Filtration Rate > 60, Glucose Level 115H, Calcium Level 8.9, Total Bilirubin 0.6, Aspartate Amino Transf (AST/SGOT) 135H, Alanine Aminotransferase (ALT/SGPT) 126H, Alkaline Phosphatase 116, Total Protein 8.3H, Albumin 2.0L, Globulin 6.3, Albumin/Globulin Ratio 0.3L, Amylase Level 315H, Lipase > 2000H, Vancomycin Level Trough 13.2H Height (Feet): 5 Height (Inches): 9.00 Weight (Pounds): 160 Objective Physical Exam General Appearance: A+O x3, NAD, ++ asterixis HEENT: normocephalic, atraumatic Neck: non-tender, normal alignment Respiratory/Chest: chest wall non-tender, lungs clear Cardiovascular/Chest: normal peripheral pulses, normal rate Abdomen: normal bowel sounds, non tender Extremities: normal range of motion Guy Salazar MD Jul 22, 2018 15:24
[2018-07-22 16:00] VITALS: BP 117/76
--- NOTE | 2018-07-22 17:22 | Pulmonology Progress Note ---
Assessment/Plan Assessment/Plan Pulmonary Progress Note Assessment/Plan Problems: (1) Respiratory disorder with ventilator dependence, pulmonary infiltrates (2) Gangrenous cholecystitis (3) S/P cholecystectomy (4) Abnormal LFTs (5) Cholecystitis, acute (6) Hepatitis C (7) Alcoholic pancreatitis (8) Pancreatitis, acute (9) Alcohol abuse (10) Fatty liver (11) Tobacco use (12) Blood loss anemia (13) Pneumonia Respiratory: monitor respiratory rate, adjust FIO2, other - HHN's Cardiac: continue to monitor HR/BP Renal: check electrolytes Infectious Disease: check cultures, continue antibiotics - Vanco, Jair, Flucon per ID Gastrointestinal: other - NPO, TPN, GI and kevin recs Endocrine: monitor blood sugar Hematologic: monitor H/H Neurologic: keep patient comfortable Prophylaxis: Protonix, Heparin Disposition: transfer to - [facility] Time Spent (Minutes): 40 Notes Reviewed: rig superintendent, ID, GI, 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 Discussed with: nurses, consultants Objective Vital Signs Noted Status: obtunded Condition: improving HEENT: atraumatic, normocephalic Lungs: clear Heart: HR/BP stable Abdomen: soft, non-tender, active bowel sounds, other - dressed, JUNE Extremities: no C/C/E Labs: Laboratory Tests Test 07/19/18 04:08 07/19/18 08:05 White Blood Count 21.8 K/UL (4.8-10.8) H Red Blood Count 3.18 M/UL (4.70-6.10) L Hemoglobin 11.1 G/DL (14.2-18.0) L Hematocrit 32.2 % (42.0-52.0) L Mean Corpuscular Volume 102 FL (80-99) H Mean Corpuscular Hemoglobin 35.0 PG (27.0-31.0) H Mean Corpuscular Hemoglobin Concent 34.5 G/DL (32.0-36.0) Red Cell Distribution Width 14.0 % (11.6-14.8) Platelet Count 692 K/UL (150-450) H Mean Platelet Volume 6.4 FL (6.5-10.1) L Neutrophils (%) (Auto) % (45.0-75.0) Lymphocytes (%) (Auto) % (20.0-45.0) Monocytes (%) (Auto) % (1.0-10.0) Eosinophils (%) (Auto) % (0.0-3.0) Basophils (%) (Auto) % (0.0-2.0) Differential Total Cells Counted 100 Neutrophils % (Manual) 90 % (45-75) H Lymphocytes % (Manual) 6 % (20-45) L Monocytes % (Manual) 4 % (1-10) Eosinophils % (Manual) 0 % (0-3) Basophils % (Manual) 0 % (0-2) Band Neutrophils 0 % (0-8) Platelet Estimate Increased H Platelet Morphology Normal Macrocytosis 1+ Prothrombin Time 11.5 SEC (9.30-11.50) Prothromb Time International Ratio 1.1 (0.9-1.1) Activated Partial Thromboplast Time 28 SEC (23-33) Sodium Level 142 MMOL/L (136-145) Potassium Level 3.6 MMOL/L (3.5-5.1) Chloride Level 107 MMOL/L (98-107) Carbon Dioxide Level 25 MMOL/L (21-32) Anion Gap 10 mmol/L (5-15) Blood Urea Nitrogen 12 mg/dL (7-18) Creatinine 0.8 MG/DL (0.55-1.30) Estimat Glomerular Filtration Rate > 60 mL/min (>60) Glucose Level 114 MG/DL (74-106) H Calcium Level 8.4 MG/DL (8.5-10.1) L Phosphorus Level 2.6 MG/DL (2.5-4.9) Magnesium Level 2.4 MG/DL (1.8-2.4) Total Bilirubin 0.4 MG/DL (0.2-1.0) Aspartate Amino Transf (AST/SGOT) 60 U/L (15-37) H Alanine Aminotransferase (ALT/SGPT) 52 U/L (12-78) Alkaline Phosphatase 75 U/L (46-116) Total Protein 7.9 G/DL (6.4-8.2) Albumin 1.9 G/DL (3.4-5.0) L Globulin 6.0 g/dL Albumin/Globulin Ratio 0.3 (1.0-2.7) L Lipase > 2000 U/L (73-393) H Urine Color Yellow Urine Appearance Clear Urine pH 6 (4.5-8.0) Urine Specific [place] 1.015 (1.005-1.035) Urine Protein 3+ (NEGATIVE) H Urine Glucose (UA) Negative (NEGATIVE) Urine Ketones 1+ (NEGATIVE) H Urine Blood 3+ (NEGATIVE) H Urine Nitrite Negative (NEGATIVE) Urine Bilirubin Negative (NEGATIVE) Urine Urobilinogen Normal MG/DL (0.0-1.0) Urine Leukocyte Esterase 1+ (NEGATIVE) H Urine RBC 5-10 /HPF (0 - 0) H Urine WBC 2-4 /HPF (0 - 0) Urine Squamous Epithelial Cells Occasional /LPF Urine Bacteria Few /HPF (NONE) Urine Yeast Few /HPF (NONE) H Subjective ROS Limited/Unobtainable: No Allergies: Coded Allergies: No Known Allergies (Unverified , 06/01/16) Objective Last 24 Hour Vital Signs Date Time Temp Pulse Resp B/P (MAP) Pulse Ox O2 Delivery O2 Flow Rate FiO2 07/22/18 16:00 98.2 101 22 117/76 (90) 95 07/22/18 16:00 Nasal Cannula 3.0 Nasal Cannula 3.0 07/22/18 15:43 101 07/22/18 13:30 88 20 99 Nasal Cannula 3.0 32 07/22/18 13:15 95 16 98 Nasal Cannula 3.0 28 07/22/18 12:00 97.9 90 22 119/74 (89) 96 07/22/18 12:00 Nasal Cannula 3.0 Nasal Cannula 3.0 07/22/18 11:50 90 07/22/18 08:46 108 132/80 07/22/18 08:46 108 132/80 07/22/18 08:00 Nasal Cannula 3.0 Nasal Cannula 3.0 07/22/18 08:00 97.3 108 23 132/80 (97) 95 07/22/18 07:47 107 07/22/18 07:39 108 22 99 Nasal Cannula 3.0 32 07/22/18 07:21 94 18 98 Nasal Cannula 3.0 28 07/22/18 07:21 Nasal Cannula 3.0 32 07/22/18 07:21 98 Nasal Cannula 3.0 32 07/22/18 04:00 Nasal Cannula 3.0 Nasal Cannula 3.0 07/22/18 04:00 98.2 102 22 136/74 (94) 95 07/22/18 03:38 102 07/22/18 01:23 105 25 99 Nasal Cannula 3.0 32 07/22/18 01:11 103 22 96 Nasal Cannula 3.0 32 07/22/18 00:00 Nasal Cannula 3.0 Nasal Cannula 3.0 07/22/18 00:00 97.9 103 21 129/73 (91) 97 07/21/18 23:37 105 07/21/18 20:00 Nasal Cannula 3.0 Nasal Cannula 3.0 07/21/18 20:00 98.1 113 24 141/78 (99) 96 07/21/18 20:00 110 07/21/18 19:23 105 25 99 Nasal Cannula 3.0 32 07/21/18 19:18 Nasal Cannula 3.0 32 07/21/18 19:18 97 Nasal Cannula 3.0 32 07/21/18 19:13 102 23 97 Nasal Cannula 3.0 32 Intake and Output 07/21/18 07/22/18 19:00 07:00 Intake Total 902 ml 1611.0 ml Output Total 1340 ml 1180 ml Balance -438 ml 431.0 ml IV Total 902 ml 1611.0 ml Output Urine Total 1300 ml 1150 ml Drainage Total 40 ml 30 ml # Bowel Movements 1 5 Microbiology Date/Time Source Procedure Growth Status 07/21/18 14:45 Sputum Induced Gram Stain - Final Resulted 07/21/18 14:45 Sputum Induced Sputum Culture Pending Resulted 07/21/18 04:00 Urine,Clean Catch Urine Culture - Preliminary NO GROWTH Resulted Laboratory Tests 07/22/18 04:55: White Blood Count 16.4H, Red Blood Count 3.53L, Hemoglobin 12.2L, Hematocrit 35.8L, Mean Corpuscular Volume 102H, Mean Corpuscular Hemoglobin 34.6H, Mean Corpuscular Hemoglobin Concent 34.1, Red Cell Distribution Width 13.8, Platelet Count 632H, Mean Platelet Volume 6.5, Neutrophils (%) (Auto) 82.5H, Lymphocytes (%) (Auto) 10.0L, Monocytes (%) (Auto) 4.1, Eosinophils (%) (Auto) 2.7, Basophils (%) (Auto) 0.6, Sodium Level 140, Potassium Level 3.7, Chloride Level 106, Carbon Dioxide Level 25, Anion Gap 9, Blood Urea Nitrogen 15, Creatinine 0.9, Estimat Glomerular Filtration Rate > 60, Glucose Level 115H, Calcium Level 8.9, Total Bilirubin 0.6, Aspartate Amino Transf (AST/SGOT) 135H, Alanine Aminotransferase (ALT/SGPT) 126H, Alkaline Phosphatase 116, Total Protein 8.3H, Albumin 2.0L, Globulin 6.3, Albumin/Globulin Ratio 0.3L, Amylase Level 315H, Lipase > 2000H, Vancomycin Level Trough 13.2H Current Medications Medications (Trade) Dose Ordered Sig/[place] Route PRN Reason Start Time Stop Time Status Last Admin Dose Admin Acetaminophen (Tylenol) 650 mg Q4H PRN RECTAL Prn for Temp >100.5 07/19/18 19:00 08/14/18 18:59 07/19/18 20:20 Al Hydroxide/Mg Hydroxide (Mylanta) 15 ml Q6H PRN NG DYSPEPSIA 07/19/18 19:00 08/11/18 18:59 Albuterol/ Ipratropium (Albuterol/ Ipratropium) 3 ml Q6HRT HHN 07/19/18 19:00 07/22/18 18:59 07/22/18 13:44 Amlodipine Besylate (Norvasc) 10 mg DAILY NG 07/20/18 09:00 08/04/18 13:48 07/22/18 08:46 Chlorhexidine Gluconate (Estrella-Hex 2%) 1 applic DAILY@1999 TOPIC 07/19/18 20:00 08/15/18 19:59 07/21/18 20:01 Clonidine HCl (Catapres Tab) 0.1 mg Q8H PRN NG hypertension 07/19/18 19:00 08/04/18 18:59 Dextrose (Dextrose 50%) 25 ml Q30M PRN IV Hypoglycemia 07/19/18 19:00 08/17/18 00:00 Dextrose (Dextrose 50%) 50 ml Q30M PRN IV hypoglycemia 07/19/18 19:00 08/17/18 00:00 Diphenhydramine HCl (Benadryl) 12.5 mg Q6H PRN IVP Itching/Pruritis 07/19/18 19:00 08/11/18 18:59 Docusate Sodium (Colace) 100 mg TWICE A DAY NG 07/20/18 09:00 08/12/18 08:59 07/22/18 08:42 Fat Emulsion Intravenous 192 ml/Amino Acids/ Electrolytes/ Dextrose 1,872 ml @ 78 mls/hr Q24H IV 07/19/18 20:00 08/16/18 19:59 07/21/18 20:04 Fluconazole/ Sodium Chloride 200 ml @ 200 mls/hr Q24H IV 07/20/18 16:30 07/25/18 16:29 07/22/18 16:07 Heparin Sodium (Porcine) (Heparin 5000 units/ml) 5,000 units Q12HR SUBQ 07/19/18 21:00 08/02/18 08:59 07/22/18 08:44 Hydromorphone HCl (Dilaudid) 0.5 mg Q3H PRN IVP Pain Score 1-3 07/19/18 19:00 07/22/18 18:59 Hydromorphone HCl (Dilaudid) 1 mg Q3H PRN IVP pain score 4-6 07/19/18 19:00 07/26/18 18:59 Hydromorphone HCl (Dilaudid) 2 mg Q3H PRN IVP pain score 7-10 07/19/18 19:00 07/26/18 18:59 Insulin Aspart (NovoLOG) No Dose Q6HR SUBQ 07/20/18 00:00 08/17/18 00:00 07/22/18 11:53 Lorazepam (Ativan 2mg/ml 1ml) 1 mg Q1H PRN IV For Anxiety 07/19/18 19:00 07/26/18 18:59 Magnesium Hydroxide (Mom) 30 ml BIDPRN PRN NG Constipation 07/19/18 19:00 08/11/18 18:59 Meropenem 1 gm/ Sodium Chloride 100 ml @ 200 mls/hr Q8HR IVPB 07/22/18 14:00 07/26/18 07:59 07/22/18 13:17 Metoprolol Tartrate (Lopressor) 25 mg DAILY NG 07/20/18 09:00 08/13/18 20:29 07/22/18 08:46 Nicotine (Nicoderm) 1 patch Q24H TDERMAL 07/20/18 18:00 08/08/18 17:59 07/21/18 17:10 Ondansetron HCl (Zofran) 4 mg Q6H PRN IVP Nausea & Vomiting 07/19/18 19:00 08/01/18 18:59 Pantoprazole (Protonix) 40 mg EVERY 12 HOURS IVP 07/19/18 21:00 08/09/18 20:59 07/22/18 08:42 Phytonadione (Vitamin K) 10 mg QWEEK SUBQ 07/24/18 20:00 08/23/18 19:59 Vancomycin HCl (Vanco rx to dose) 1 ea DAILY PRN MISC Per rx protocol 07/19/18 19:00 08/18/18 18:59 Vancomycin HCl/ Dextrose 275 ml @ 137.5 mls/ hr Q12H IVPB 07/20/18 18:00 07/25/18 17:59 07/22/18 07:12 Parker Borjas MD Jul 22, 2018 17:22
--- NOTE | 2018-07-22 19:20 | NUR ---
HAND-OFF: Report given to Marcella Cervantse RN. Patient stable and in no apparent distress.
--- NOTE | 2018-07-22 19:30 | NUR ---
NURSE NOTES: Report received from JAVIER Powers. Observed pt lying on the bed. Alert and oriented x2. ST with school lunch monitor with HR of 103. NC with 3L, saturating at 99%. NGT at L nares, locked. F/C intact and draining well. JUNE drainage bag with dark red discharge. Surgical site on R upper abdomen and below belly noted. PICC on L UA, running TPN at 78cc/hr. Bed in the lowest position. Side rails up x3. Will continue to monitor.
[2018-07-22] MEDS: FAT EMULSION 20% IV SCH (19:50)
[2018-07-22] MEDS: TPN IV SCH (19:50)
[2018-07-22] MEDS: Dyna-Hex 2% Top Sol 2oz TOPIC SCH (19:51)
[2018-07-22 20:00] VITALS: BP 118/76
--- NOTE | 2018-07-22 21:00 | NUR ---
NURSE NOTES: Held Heparin due to bright red output from Jordan baldwin, charge nurse aware.
[2018-07-23] VITALS: BP 126/84
[2018-07-23] MEDS: NovoLOG Insulin Flexpen SUBQ SCH ×4 (00:30→18:10)
[2018-07-23 04:00] VITALS: BP 118/95
[2018-07-23] MEDS: Vancomycin 1.5gm/D5W 275ml IVPB SCH (05:41)
[2018-07-23 05:48] LABS: BASOPHILS % (AUTO) 0.8 % (0.0-2.0); EOSINOPHILS % (AUTO) 3.3 % (0.0-3.0); HEMOGLOBIN 11.9 G/DL (14.2-18.0); LYMPHOCYTES % (AUTO) 9.3 % (20.0-45.0); MEAN CORPUSCULAR VOLUME 101 FL (80-99); MONOCYTES % (AUTO) 6.5 % (1.0-10.0); NEUTROPHILS % (AUTO) 80.2 % (45.0-75.0); PLATELET COUNT 574 K/UL (150-450); RED BLOOD COUNT 3.46 M/UL (4.70-6.10); RED CELL DISTRIBUTION WIDTH 13.6 % (11.6-14.8); WHITE BLOOD COUNT 15.5 K/UL (4.8-10.8)
[2018-07-23 06:26] LABS: ALANINE AMINOTRANSFERASE 123 U/L (12-78); ALBUMIN/GLOBULIN RATIO 0.3 (1.0-2.7); ALKALINE PHOSPHATASE 108 U/L (46-116); AMYLASE 279 U/L (25-115); ANION GAP 7 mmol/L (5-15); ASPARTATE AMINO TRANSFERASE 107 U/L (15-37); BILIRUBIN,TOTAL 0.4 MG/DL (0.2-1.0); BLOOD UREA NITROGEN 15 mg/dL (7-18); CALCIUM 8.4 MG/DL (8.5-10.1); CARBON DIOXIDE 27 MMOL/L (21-32); CHLORIDE 106 MMOL/L (98-107); CREATININE 0.8 MG/DL (0.55-1.30); POTASSIUM 3.8 MMOL/L (3.5-5.1); SODIUM 140 MMOL/L (136-145)
--- NOTE | 2018-07-23 07:34 | NUR ---
HAND-OFF: Report given to Angelica Torres RN.
--- NOTE | 2018-07-23 07:35 | NUR ---
NURSE NOTES: Report received from Marcella Jaime RN.Pt resting in bed awake,alert noted no resp ditress or discomfort,SR on the monitor,Pt NPO on TPN tp AVI PICC line,site intact with TPN running at 78/hr,skin warm and dry,Serrano cath draining yellow urine,drsg to midabd dry and intact with JUNE x1 draining minimal amount of bloody drainage,SR up x2 HOB elevated ,bed lock in lowest position,will continue with plans of care.
[2018-07-23 08:00] VITALS: BP 120/73
--- NOTE | 2018-07-23 08:00 | NUR ---
NURSE NOTES: Dr Anguiano at bedside,informed re bleeding fr incision site during the night,will hold Heparin 5000 SQ.
[2018-07-23] MEDS: Heparin 5000 units/ml inj SUBQ SCH ×2 (09:00→20:42)
[2018-07-23] MEDS: Docusate 100mg/10ml Liq NG SCH ×2 (09:00→17:45)
[2018-07-23] MEDS: Pantoprazole Inj IVP SCH ×2 (09:18→20:42)
[2018-07-23] MEDS: Metoprolol 25mg tab NG SCH (09:18)
--- NOTE | 2018-07-23 10:20 | NUR ---
NURSE NOTES: Dr Boateng at bedside,informed re diarrhea stools x2 ,colace 100 mg hold.
--- NOTE | 2018-07-23 10:20 | NUR ---
NURSE NOTES: Dr Boateng at bedside,covering for the [facility],informed re Diarrhea stools x2,will hold Colace and agreed.
--- NOTE | 2018-07-23 10:37 | GI Progress Note ---
Assessment/Plan Problems: (1) Abnormal LFTs ICD Codes: R79.89 - Other specified abnormal findings of blood chemistry SNOMED: 961467825 (2) Cholecystitis, acute ICD Codes: K81.0 - Acute cholecystitis SNOMED: 22980853 (3) Hepatitis C ICD Codes: B19.20 - Unspecified viral hepatitis C without hepatic coma SNOMED: 86529916 (4) Fatty liver ICD Codes: K76.0 - Fatty (change of) liver, not elsewhere classified SNOMED: 884485008 (5) Alcoholic pancreatitis ICD Codes: K85.20 - Alcohol induced acute pancreatitis without necrosis or infection SNOMED: 279499255 (6) Pancreatitis, acute ICD Codes: K85.90 - Acute pancreatitis without necrosis or infection, unspecified SNOMED: 089961887 Status: progressing Status Narrative Discussed with Dr. Yip. Assessment/Plan SUMMARY OF FINDINGS: 1. 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 2. Status post ERCP with sphincterotomy, balloon assistance sludge and some pus extraction from the common bile duct and then stent placement. s/p open jocelyn, now in ICU with pancreatitis hepatitis C positive Pancreatitis RECOMMENDATIONS: follow up surgical recommendations Maintain n.p.o. with IV fluids given elevated lipase levels, continue TPN prn transfusions fu lipase fu labs The patient will need repeat ERCP in 6 to 8 weeks for stent removal. outpatient Hep C tx repeat CT ordered but canceled per surg recs The patient was seen and examined at bedside and all new and available data was reviewed in the patients chart. I agree with the above findings, impression and plan. (Patient seen earlier today. Signature stamp does not reflect patient encounter time.). - Toñito Yip MD Subjective Subjective limited Objective Last 24 Hour Vital Signs Date Time Temp Pulse Resp B/P (MAP) Pulse Ox O2 Delivery O2 Flow Rate FiO2 07/23/18 09:18 103 120/73 07/23/18 09:18 103 120/73 07/23/18 08:00 97.6 103 120/73 (89) 07/23/18 08:00 105 07/23/18 04:00 Nasal Cannula 3.0 Nasal Cannula 3.0 07/23/18 04:00 103 07/23/18 04:00 98.0 103 22 118/95 (103) 97 07/23/18 00:00 97.9 101 22 126/84 (98) 97 07/23/18 00:00 Nasal Cannula 3.0 Nasal Cannula 3.0 07/23/18 00:00 104 07/22/18 20:28 Nasal Cannula 3.0 32 07/22/18 20:27 96 Nasal Cannula 3.0 32 07/22/18 20:00 Nasal Cannula 3.0 Nasal Cannula 3.0 07/22/18 20:00 102 07/22/18 20:00 98.0 101 22 118/76 (90) 95 07/22/18 18:00 Nasal Cannula 3.0 Nasal Cannula 3.0 07/22/18 16:00 98.2 101 22 117/76 (90) 95 07/22/18 16:00 Nasal Cannula 3.0 Nasal Cannula 3.0 07/22/18 15:43 101 07/22/18 13:30 88 20 99 Nasal Cannula 3.0 32 07/22/18 13:15 95 16 98 Nasal Cannula 3.0 28 07/22/18 12:00 97.9 90 22 119/74 (89) 96 07/22/18 12:00 Nasal Cannula 3.0 Nasal Cannula 3.0 07/22/18 11:50 90 Intake and Output 07/22/18 07/23/18 19:00 07:00 Intake Total 1483.5 ml 1208.5 ml Output Total 1060 ml 1810 ml Balance 423.5 ml -601.5 ml IV Total 1483.5 ml 1208.5 ml Output Urine Total 1050 ml 1800 ml Drainage Total 10 ml 10 ml # Bowel Movements 2 4 Laboratory Tests Test 07/23/18 03:40 White Blood Count 15.5 K/UL (4.8-10.8) H Red Blood Count 3.46 M/UL (4.70-6.10) L Hemoglobin 11.9 G/DL (14.2-18.0) L Hematocrit 35.0 % (42.0-52.0) L Mean Corpuscular Volume 101 FL (80-99) H Mean Corpuscular Hemoglobin 34.4 PG (27.0-31.0) H Mean Corpuscular Hemoglobin Concent 34.0 G/DL (32.0-36.0) Red Cell Distribution Width 13.6 % (11.6-14.8) Platelet Count 574 K/UL (150-450) H Mean Platelet Volume 6.3 FL (6.5-10.1) L Neutrophils (%) (Auto) 80.2 % (45.0-75.0) H Lymphocytes (%) (Auto) 9.3 % (20.0-45.0) L Monocytes (%) (Auto) 6.5 % (1.0-10.0) Eosinophils (%) (Auto) 3.3 % (0.0-3.0) H Basophils (%) (Auto) 0.8 % (0.0-2.0) Sodium Level 140 MMOL/L (136-145) Potassium Level 3.8 MMOL/L (3.5-5.1) Chloride Level 106 MMOL/L (98-107) Carbon Dioxide Level 27 MMOL/L (21-32) Anion Gap 7 mmol/L (5-15) Blood Urea Nitrogen 15 mg/dL (7-18) Creatinine 0.8 MG/DL (0.55-1.30) Estimat Glomerular Filtration Rate > 60 mL/min (>60) Glucose Level 120 MG/DL (74-106) H Calcium Level 8.4 MG/DL (8.5-10.1) L Total Bilirubin 0.4 MG/DL (0.2-1.0) Aspartate Amino Transf (AST/SGOT) 107 U/L (15-37) H Alanine Aminotransferase (ALT/SGPT) 123 U/L (12-78) H Alkaline Phosphatase 108 U/L (46-116) Total Protein 8.2 G/DL (6.4-8.2) Albumin 2.0 G/DL (3.4-5.0) L Globulin 6.2 g/dL Albumin/Globulin Ratio 0.3 (1.0-2.7) L Amylase Level 279 U/L (25-115) H Lipase 1899 U/L (73-393) H Height (Feet): 5 Height (Inches): 9.00 Weight (Pounds): 160 General Appearance: WD/WN, no apparent distress, alert, thin Cardiovascular: normal rate Respiratory/Chest: normal breath sounds, no respiratory distress Abdominal Exam: normal bowel sounds, non tender, soft Extremities: non-tender Sonja Neely PROJECT COORDINATOR Jul 23, 2018 10:37
[2018-07-23 12:00] VITALS: BP 122/70
--- NOTE | 2018-07-23 12:39 | General Progress Note ---
Progress Note Progress Note amylase / lipase trending down leukocytosis trending down exam stable wound improving abd stable cont abx trend labs will take long time to recover from this given baseline [place] Antonio Jul 23, 2018 12:39
--- NOTE | 2018-07-23 13:15 | NUR ---
NURSE NOTES: Pt resting in bed ,stable no c/o abd pain presented.
--- NOTE | 2018-07-23 14:31 | NUR ---
RD ASSESSMENT & RECOMMENDATIONS SEE CARE ACTIVITY FOR COMPLETE ASSESSMENT DAILY ESTIMATED NEEDS: Needs based on Pancreatitis, 72.6kg 25-30 kcals/kg 8372-0615 total kcals 1-1.5 g protein/kg 73-109 g total protein 25-30 mL/kg 8454-3035 total fluid mLs NUTRITION DIAGNOSIS: * Altered nutrition-related lab values R/T liver dysfunction, pancreatitis, clinical condition as evidenced by elev LFTs, trend down, elev T bili, now wnl, , Hep C antibody >11, elev lipase and amylase, low Na (130-> wnl), low K 3.3-> wnl. * Swallowing difficulty R/T dysphagia, decreased alertness, respiratory status as evidenced by previously recommended NPO per HOUSE DECORATOR, intubated, now extubated, currently on TPN. (UPDATED) CURRENT DIET:NPO PO DIET RECOMMENDATIONS: Diet per MD PARENTERAL NUTRITION RECOMMENDATIONS: D/AA Rate: 70 IL Rate: 8 Total Rate: 78 Volume: 1872 % Dextrose: 20 % AA: 5.5 Energy (kcals/kg): 1896 Protein (g/kg protein): 92 Nonprotein KCALS: 1526 GIR (mg CHO/kg/min): 3.2 % Fat KCALS: 20 NCP: N Ratio: 104:1 TPN Comment: - Continue D20%, AA 5.5% @70ml/hr + 20% IL @8ml-> all 3:1 - TPN @goal provides 1872 kcal (26 kcal/kg). 92g prot (1.3g/kg) - Monitor BG, lytes, LFT's daily on TPN - IL 20% of total kcal - GIR <5 - NPC >100:1 ADDITIONAL RECOMMENDATIONS: 1) Monitor lytes, LFTs, BGs daily w/ TPN 2) Diet initiation per MD-> now CLD 3) Calibrated bedscale wt for accurate CBW-> pt w/ added P200 4) Monitor lipase level 5) Monitor tolerance to CLD; ability to lower TPN . .
--- NOTE | 2018-07-23 14:42 | General Progress Note ---
Assessment/Plan Assessment/Plan #Sepsis #Acute purulent gangrenous cholecystitis. #klebsiella cholecystitis #acute Hypoxic respiratory failure #Acute Metabolic Encephalopathy - due to alcohol withdrawal and sepsis - meropenem, vancomycin and diflucan - bcx x 2 ngtd - s/p ercp 07/12 - gen surg consulted, s/p lap jocelyn converted to open jocelyn 07/12 - extubated on 07/16.19 - off o2 ncl - pulm consult appreciated - pain control - appreciate surg recs - fluids - tpn -PT ordered #Acute Blood Loss Anemia - due to recent surgery - no overt bleeding noted currently - hgb 6.8 07/15, transfused 2U, 9.7 (07/16) - stable #Pleural Effusions - b/l - per mrcp - stable - pulm consult appreciated #Alcohol Pancreatitis #Intractable abdominal pain #intractable nausea/vomiting #Transaminitis #Alcohol Hepatitis #Alcohol withdrawals #Fatty Liver Disease #Hepatitis C - LFTs 446/532 - Lipase 687 - due to alcohol abuse - INR 1.0 - discriminant function, 4.5 , no need for steroids - US abd completed and reviewed, showing fatty liver disease. GS present, no obstruction noted - ppi - PRN antiemetics, zofran prn - Banana bag - close lab monitoring - IVF - monitor carefully for withdrawals - tube feeds held due to worsening pancreatitis - TPN - Per GI, will need ERCP in 6-8 weeks for stent removal #Failure to thrive - due to alcohol withdrawals and the above - alcoholic pancreatitis - fluids #Alcohol Abuse - educated on cessation for 15 mins - patient states he understands and will try to quit - RN notified to monitor carefully with withdrawals - prn ativan - ciwa #Uncontrolled HTN - improved - clonidine 0.1 mg po prn - amlodipine 10mg qday - due to withdrawals #Tobacco abuse - smokes 1ppd - educated on smoking cessation for over 15 mins, states he understands the risks of smoking and will try to quit diet: NPO Subjective Date patient seen: Jul 23, 2018 Time patient seen: 10:40 Allergies: Coded Allergies: No Known Allergies (Unverified , 06/01/16) Subjective f/u pancreatitis, cholecystitis, sepsis, alcoholic hepatitis, nausea, alcohol abuse, alcohol withdrawals s/p ercp 07/12 and subsequent open jocelyn, full of pus, gangrenous jocelyn, drain left in extubated 07/16 transferred out of the icu 07/21/18 TPN stable improving slowly awake ROS: 14 point ROS reviewed and negative except per above Objective Last 24 Hour Vital Signs Date Time Temp Pulse Resp B/P (MAP) Pulse Ox O2 Delivery O2 Flow Rate FiO2 07/23/18 09:18 103 120/73 07/23/18 09:18 103 120/73 07/23/18 08:00 97.6 103 120/73 (89) 07/23/18 08:00 Nasal Cannula 3.0 Nasal Cannula 3.0 07/23/18 08:00 105 07/23/18 04:00 Nasal Cannula 3.0 Nasal Cannula 3.0 07/23/18 04:00 103 07/23/18 04:00 98.0 103 22 118/95 (103) 97 07/23/18 00:00 97.9 101 22 126/84 (98) 97 07/23/18 00:00 Nasal Cannula 3.0 Nasal Cannula 3.0 07/23/18 00:00 104 07/22/18 20:28 Nasal Cannula 3.0 32 07/22/18 20:27 96 Nasal Cannula 3.0 32 07/22/18 20:00 Nasal Cannula 3.0 Nasal Cannula 3.0 07/22/18 20:00 102 07/22/18 20:00 98.0 101 22 118/76 (90) 95 07/22/18 18:00 Nasal Cannula 3.0 Nasal Cannula 3.0 07/22/18 16:00 98.2 101 22 117/76 (90) 95 07/22/18 16:00 Nasal Cannula 3.0 Nasal Cannula 3.0 07/22/18 15:43 101 Intake and Output 07/22/18 07/23/18 18:59 06:59 Intake Total 1483.5 ml 1208.5 ml Output Total 1060 ml 1810 ml Balance 423.5 ml -601.5 ml IV Total 1483.5 ml 1208.5 ml Output Urine Total 1050 ml 1800 ml Drainage Total 10 ml 10 ml # Bowel Movements 2 4 Laboratory Tests 07/23/18 03:40: White Blood Count 15.5H, Red Blood Count 3.46L, Hemoglobin 11.9L, Hematocrit 35.0L, Mean Corpuscular Volume 101H, Mean Corpuscular Hemoglobin 34.4H, Mean Corpuscular Hemoglobin Concent 34.0, Red Cell Distribution Width 13.6, Platelet Count 574H, Mean Platelet Volume 6.3L, Neutrophils (%) (Auto) 80.2H, Lymphocytes (%) (Auto) 9.3L, Monocytes (%) (Auto) 6.5, Eosinophils (%) (Auto) 3.3H, Basophils (%) (Auto) 0.8, Sodium Level 140, Potassium Level 3.8, Chloride Level 106, Carbon Dioxide Level 27, Anion Gap 7, Blood Urea Nitrogen 15, Creatinine 0.8, Estimat Glomerular Filtration Rate > 60, Glucose Level 120H, Calcium Level 8.4L, Total Bilirubin 0.4, Aspartate Amino Transf (AST/SGOT) 107H , Alanine Aminotransferase (ALT/SGPT) 123H, Alkaline Phosphatase 108, Total Protein 8.2, Albumin 2.0L, Globulin 6.2, Albumin/Globulin Ratio 0.3L, Amylase Level 279H, Lipase 1899H Height (Feet): 5 Height (Inches): 9.00 Weight (Pounds): 160 Objective Physical Exam General Appearance: alert, stable, awake Lines, tubes and drains: peripheral HEENT: normocephalic, atraumatic, anicteric, PERRL Neck: non-tender, normal alignment Respiratory/Chest: chest wall non-tender, mechanical breath sounds, no respiratory distress, no accessory muscle use Cardiovascular/Chest: normal peripheral pulses, normal rate, regular rhythm Abdomen: normal bowel sounds, soft, no organomegaly, no mass, drain in place, Extremities: normal range of motion, non-tender, normal inspection, no calf tenderness, normal capillary refill, non-pitting. +asterixis Skin Exam: normal pigmentation, warm/dry Neurologic: no motor/sensory deficits, alert, oriented x 3, responsive, normal mood/affect Denice Boateng MD Jul 23, 2018 14:42
--- NOTE | 2018-07-23 14:52 | NUR ---
REHAB/P.T Note: P.T evaluation completed and treatment initiated. Please refer to P.T evaluation for current functional status. Pt is alert, oriented to self and person but not to time and place. Pt follows commands appropriately and cooperative during P.T evaluation /tx. Pt reported pain on the abdomen and feeling exhausted however agreeable to participating in therapy. Pt presented generalized weakness , marked deconditioned state resulting to poor activity tolerance. Pt currently require extended time and MAX A X 1 to turn/roll and to rise from supine to/from sitting . Pt able to sit at the EOB demonstrating decreased trunk extension due to weakness resulting to slouched posture. Pt not able to fully stand despite MAX support and multiple attempt. Pt should benefit from skilled P.T service to improve strength, endurance and balance to improve functional mobility independence and safety. P.T strongly recommend SNF for further rehab VS home with P.T at [place]. Thank you for this referral.
[2018-07-23] MEDS: Vancomycin 1gm/D5W 275ml IVPB SCH ×4 (15:22→22:16)
[2018-07-23 16:00] VITALS: BP 119/78
--- NOTE | 2018-07-23 17:42 | General Progress Note ---
Assessment/Plan Assessment/Plan Anemia of chronic disease due to underlying chronic medical issues, multifactorial, pancreatitis --> Anemia workup has been ordered/reviewed as well --> No evidence of hemolysis is noted, peripheral smear has been reviewed. --> Hgb goal >7. Transfuse prn. --> Epogen or iron at this time is not particularly indicated --> Medications have been reviewed # Thrombocytopenia is likely related to underlying reactive processs from pancreatitis, acute, as well as alcoholic intoxication and myelosuppression --> also patient has a history of hepatitis C from prior admission --> smear has been reviewed --> heparin sq is okay if needed for dvt ppx # Erythrocytosis is likely related to dehydration --> hgb goal >7, no evidence of bleeding currently --> given ivf already # Leukocytosis no e/o annie infection --> could be due to reactive process v cholecystitis --> wbc trend: 22-->18-->16-->14-->18 --> peripheral smear has been reviewed --> ercp tomorrow per surg/gi # Pancreatitis with alcohol abuse --> recommend etoh cessation --> amylase and lipase prn -->Status post ERCP with sphincterotomy and stent placement # Transaminitis --> likely related to etoh abuse --> in past seen by gi # Alcohol abuse -- recommend cessation The timing of this note does not necessarily reflect the time of the patient was seen Greatly appreciate consultation! Subjective ROS Limited/Unobtainable: Yes Allergies: Coded Allergies: No Known Allergies (Unverified , 06/01/16) Subjective 07/05: bp was high today and dc was cancelled until tomorow, on librium 07/06: wbc was high though other counts are better, no f/c 07/10: seen by bedside, heart rate increased, appears agitated, wbc 13.9 07/11: to get ercp tomorrow, surgery and gi following 07/12 ercp, sphincterotomy, stent placement surgery done today, currently having tremors and tachy. wbc 15.9, hgb 14, plt 429 07/13: Pt is intubated, seen by bedside,wbc 22, on abx, no acute distress 07/14: awake and comfortable, still intubated on vent, labs noted hb trending down, wbc 18, hgb 8. 07/16: seen by bedside, awake, comfortable, wbc 14, hgb 9, plt 613 07/17: awake, comfortable, status post ERCP with sphincterotomy wbc 21, hgb 10, plt 689. 07/18; seen by bedside, awake comfortable, on venturi mask, wbc 23, plt 754. 07/19: seen by bedside, awake and comfortable, no events, wbc 21 07/20: now out of the icu, doing better, wbc improved, remains on abx as per ID 07/22: Pt is awake, comfortable, wbc 16, lt 632, on abx 07/23 Pt is awake, comfortable, wbc 15, plt 574, on abx, CXR revelals, Increasing opacities of the right lung and Slightly increasing right pleural effusion Objective Last 24 Hour Vital Signs Date Time Temp Pulse Resp B/P (MAP) Pulse Ox O2 Delivery O2 Flow Rate FiO2 07/23/18 16:00 99 07/23/18 16:00 Nasal Cannula 3.0 Nasal Cannula 3.0 07/23/18 16:00 97.7 100 22 119/78 (92) 97 07/23/18 12:00 Nasal Cannula 3.0 Nasal Cannula 3.0 07/23/18 12:00 98.1 97 22 122/70 (87) 92 07/23/18 12:00 93 07/23/18 09:18 103 120/73 07/23/18 09:18 103 120/73 07/23/18 08:00 97.6 103 120/73 (89) 07/23/18 08:00 Nasal Cannula 3.0 Nasal Cannula 3.0 07/23/18 08:00 105 07/23/18 04:00 Nasal Cannula 3.0 Nasal Cannula 3.0 07/23/18 04:00 103 07/23/18 04:00 98.0 103 22 118/95 (103) 97 07/23/18 00:00 97.9 101 22 126/84 (98) 97 07/23/18 00:00 Nasal Cannula 3.0 Nasal Cannula 3.0 07/23/18 00:00 104 07/22/18 20:28 Nasal Cannula 3.0 32 07/22/18 20:27 96 Nasal Cannula 3.0 32 07/22/18 20:00 Nasal Cannula 3.0 Nasal Cannula 3.0 07/22/18 20:00 102 07/22/18 20:00 98.0 101 22 118/76 (90) 95 07/22/18 18:00 Nasal Cannula 3.0 Nasal Cannula 3.0 Intake and Output 07/22/18 07/23/18 18:59 06:59 Intake Total 1483.5 ml 1208.5 ml Output Total 1060 ml 1810 ml Balance 423.5 ml -601.5 ml IV Total 1483.5 ml 1208.5 ml Output Urine Total 1050 ml 1800 ml Drainage Total 10 ml 10 ml # Bowel Movements 2 4 Laboratory Tests 07/23/18 03:40: White Blood Count 15.5H, Red Blood Count 3.46L, Hemoglobin 11.9L, Hematocrit 35.0L, Mean Corpuscular Volume 101H, Mean Corpuscular Hemoglobin 34.4H, Mean Corpuscular Hemoglobin Concent 34.0, Red Cell Distribution Width 13.6, Platelet Count 574H, Mean Platelet Volume 6.3L, Neutrophils (%) (Auto) 80.2H, Lymphocytes (%) (Auto) 9.3L, Monocytes (%) (Auto) 6.5, Eosinophils (%) (Auto) 3.3H, Basophils (%) (Auto) 0.8, Sodium Level 140, Potassium Level 3.8, Chloride Level 106, Carbon Dioxide Level 27, Anion Gap 7, Blood Urea Nitrogen 15, Creatinine 0.8, Estimat Glomerular Filtration Rate > 60, Glucose Level 120H, Calcium Level 8.4L, Total Bilirubin 0.4, Aspartate Amino Transf (AST/SGOT) 107H , Alanine Aminotransferase (ALT/SGPT) 123H, Alkaline Phosphatase 108, Total Protein 8.2, Albumin 2.0L, Globulin 6.2, Albumin/Globulin Ratio 0.3L, Amylase Level 279H, Lipase 1899H Height (Feet): 5 Height (Inches): 9.00 Weight (Pounds): 160 Objective Physical Exam General Appearance: A+O x3, NAD, ++ asterixis HEENT: normocephalic, atraumatic Neck: non-tender, normal alignment Respiratory/Chest: chest wall non-tender, lungs clear Cardiovascular/Chest: normal peripheral pulses, normal rate Abdomen: normal bowel sounds, non tender Extremities: normal range of motion Guy Salazar MD Jul 23, 2018 17:42
--- NOTE | 2018-07-23 18:57 | Cardiology Report ---
APPROVED REPORT EXAM: Two-dimensional and M-mode echocardiogram with Doppler and color Doppler. INDICATION Congestive Heart Failure M-Mode DIMENSIONS IVSd1.2 (0.7-1.1cm)Left Atrium (MM)3.5 (1.6-4.0cm) LVDd4.8 (3.5-5.6cm)Aortic Root2.5 (2.0-3.7cm) PWd0.9 (0.7-1.1cm)Aortic Cusp Exc.1.8 (1.5-2.0cm) LVDs2.1 (2.5-4.0cm) PWs1.7 cm Normal left ventricular chamber size, systolic function and wall motion. Left ventricular ejection fraction estimated to be 65 %. Mild left ventricular hypertrophy. No evidence of pericardial effusion. All other cardiac chamber sizes are within normal limits. Focal aortic valve sclerosis with adequate cusp excursion. Thickened mitral valve leaflets with normal excursion. Mild mitral annulus and aortic root calcification. Pulmonic valve not well visualized. Normal tricuspid valve structure. Subcostal views not obtainable due to GI tube. A color flow and spectral Doppler study was performed and revealed: No aortic insufficiency. Mild to moderate mitral regurgitation. Normal left ventricular diastolic function. Mild tricuspid regurgitation. Tricuspid systolic velocities suggests peak right ventricular systolic pressure of 50 mmHg, consistent with moderate pulmonary hypertension. Mild pulmonic regurgitation present.
--- NOTE | 2018-07-23 19:35 | NUR ---
HAND-OFF: Report given to Selina Stone RN,no change in pt's status.
--- NOTE | 2018-07-23 19:56 | NUR ---
NURSE NOTES: Received report from Angelica Mcelroy RN. Pt stable in bed with IVF running at prescribed rate. Bed in lowest position with side rails up x2 and aspiration precautions in place. TPN has completed and new bag will be hung. No distress noted. Will continue to monitor.
[2018-07-23 20:00] VITALS: BP 125/84
--- NOTE | 2018-07-23 20:06 | Pulmonology Progress Note ---
Assessment/Plan Problems: (1) Cholecystitis, acute (2) Alcoholic pancreatitis (3) Pancreatitis, acute (4) Alcohol abuse (5) Abnormal LFTs (6) Gangrenous cholecystitis (7) Respiratory disorder with ventilator dependence Assessment & Plan: Extubated and TTF (8) Blood loss anemia (9) Pneumonia (10) Hepatitis C (11) Fatty liver Assessment/Plan Optimize pulmonary hygiene/mobilize as tolerated Titrate down FiO2 to keep SaO2 > 90% PRN HHN's Abx (Jair/Vanco) + flucon per ID CXR F/U GI and surgery recs NPO, TPN, trend Amylase/Lipase, repeat ERCP in the future Montor volumes and renal function DVT Px: Hep SQ FC Subjective Allergies: Coded Allergies: No Known Allergies (Unverified , 06/01/16) Subjective TTF Better AFVSS on 3L On TPN, NPO More alert No cough, no SOB, no F/C Pain better WCt downtrending Amylase/lipase slowly downtrending Objective Last 24 Hour Vital Signs Date Time Temp Pulse Resp B/P (MAP) Pulse Ox O2 Delivery O2 Flow Rate FiO2 07/23/18 16:00 99 07/23/18 16:00 Nasal Cannula 3.0 Nasal Cannula 3.0 07/23/18 16:00 97.7 100 22 119/78 (92) 97 07/23/18 12:00 Nasal Cannula 3.0 Nasal Cannula 3.0 07/23/18 12:00 98.1 97 22 122/70 (87) 92 07/23/18 12:00 93 07/23/18 09:18 103 120/73 07/23/18 09:18 103 120/73 07/23/18 08:00 97.6 103 120/73 (89) 07/23/18 08:00 Nasal Cannula 3.0 Nasal Cannula 3.0 07/23/18 08:00 105 07/23/18 04:00 Nasal Cannula 3.0 Nasal Cannula 3.0 07/23/18 04:00 103 07/23/18 04:00 98.0 103 22 118/95 (103) 97 07/23/18 00:00 97.9 101 22 126/84 (98) 97 07/23/18 00:00 Nasal Cannula 3.0 Nasal Cannula 3.0 07/23/18 00:00 104 07/22/18 20:28 Nasal Cannula 3.0 32 07/22/18 20:27 96 Nasal Cannula 3.0 32 Intake and Output 07/22/18 07/23/18 19:00 07:00 Intake Total 1483.5 ml 1208.5 ml Output Total 1060 ml 1810 ml Balance 423.5 ml -601.5 ml IV Total 1483.5 ml 1208.5 ml Output Urine Total 1050 ml 1800 ml Drainage Total 10 ml 10 ml # Bowel Movements 2 4 General Appearance: no acute distress, cachetic HEENT: normocephalic, atraumatic, anicteric, mucous membranes moist, other - OGT Respiratory/Chest: chest wall non-tender, lungs clear, normal breath sounds, no respiratory distress Cardiovascular: normal peripheral pulses, normal rate, regular rhythm Abdomen: soft, non tender, non distended, other - dressed Extremities: no cyanosis, no clubbing, no edema Microbiology Date/Time Source Procedure Growth Status 07/21/18 14:45 Sputum Induced Gram Stain - Final Complete 07/21/18 14:45 Sputum Culture - Final Nery Albicans Usual Respiratory Carolyn Complete 07/21/18 04:00 Urine,Clean Catch Urine Culture - Preliminary YEAST Resulted Laboratory Tests 07/23/18 03:40: White Blood Count 15.5H, Red Blood Count 3.46L, Hemoglobin 11.9L, Hematocrit 35.0L, Mean Corpuscular Volume 101H, Mean Corpuscular Hemoglobin 34.4H, Mean Corpuscular Hemoglobin Concent 34.0, Red Cell Distribution Width 13.6, Platelet Count 574H, Mean Platelet Volume 6.3L, Neutrophils (%) (Auto) 80.2H, Lymphocytes (%) (Auto) 9.3L, Monocytes (%) (Auto) 6.5, Eosinophils (%) (Auto) 3.3H, Basophils (%) (Auto) 0.8, Sodium Level 140, Potassium Level 3.8, Chloride Level 106, Carbon Dioxide Level 27, Anion Gap 7, Blood Urea Nitrogen 15, Creatinine 0.8, Estimat Glomerular Filtration Rate > 60, Glucose Level 120H, Calcium Level 8.4L, Total Bilirubin 0.4, Aspartate Amino Transf (AST/SGOT) 107H , Alanine Aminotransferase (ALT/SGPT) 123H, Alkaline Phosphatase 108, Total Protein 8.2, Albumin 2.0L, Globulin 6.2, Albumin/Globulin Ratio 0.3L, Amylase Level 279H, Lipase 1899H Current Medications Medications (Trade) Dose Ordered Sig/[place]esh Route PRN Reason Start Time Stop Time Status Last Admin Dose Admin Acetaminophen (Tylenol) 650 mg Q4H PRN RECTAL Prn for Temp >100.5 07/19/18 19:00 08/14/18 18:59 07/19/18 20:20 Al Hydroxide/Mg Hydroxide (Mylanta) 15 ml Q6H PRN NG DYSPEPSIA 07/19/18 19:00 08/11/18 18:59 Amlodipine Besylate (Norvasc) 10 mg DAILY NG 07/20/18 09:00 08/04/18 13:48 07/23/18 09:18 Chlorhexidine Gluconate (Estrella-Hex 2%) 1 applic DAILY@2000 TOPIC 07/19/18 20:00 08/15/18 19:59 07/22/18 19:51 Clonidine HCl (Catapres Tab) 0.1 mg Q8H PRN NG hypertension 07/19/18 19:00 08/04/18 18:59 Dextrose (Dextrose 50%) 25 ml Q30M PRN IV Hypoglycemia 07/19/18 19:00 08/17/18 00:00 Dextrose (Dextrose 50%) 50 ml Q30M PRN IV hypoglycemia 07/19/18 19:00 08/17/18 00:00 Diphenhydramine HCl (Benadryl) 12.5 mg Q6H PRN IVP Itching/Pruritis 07/19/18 19:00 08/11/18 18:59 Docusate Sodium (Colace) 100 mg TWICE A DAY NG 07/20/18 09:00 08/12/18 08:59 07/22/18 08:42 Fat Emulsion Intravenous 192 ml/Amino Acids/ Electrolytes/ Dextrose 1,872 ml @ 78 mls/hr Q24H IV 07/19/18 20:00 08/16/18 19:59 07/22/18 19:50 Fluconazole/ Sodium Chloride 200 ml @ 200 mls/hr Q24H IV 07/20/18 16:30 07/25/18 16:29 07/23/18 17:45 Heparin Sodium (Porcine) (Heparin 5000 units/ml) 5,000 units Q12HR SUBQ 07/19/18 21:00 08/02/18 08:59 07/22/18 08:44 Hydromorphone HCl (Dilaudid) 1 mg Q3H PRN IVP pain score 4-6 07/19/18 19:00 07/26/18 18:59 Hydromorphone HCl (Dilaudid) 2 mg Q3H PRN IVP pain score 7-10 07/19/18 19:00 07/26/18 18:59 Insulin Aspart (NovoLOG) No Dose Q6HR SUBQ 07/20/18 00:00 08/17/18 00:00 07/23/18 18:10 Lorazepam (Ativan 2mg/ml 1ml) 1 mg Q1H PRN IV For Anxiety 07/19/18 19:00 07/26/18 18:59 Magnesium Hydroxide (Mom) 30 ml BIDPRN PRN NG Constipation 07/19/18 19:00 08/11/18 18:59 Meropenem 1 gm/ Sodium Chloride 100 ml @ 200 mls/hr Q8HR IVPB 07/22/18 14:00 07/26/18 07:59 07/23/18 15:13 Metoprolol Tartrate (Lopressor) 25 mg DAILY NG 07/20/18 09:00 08/13/18 20:29 07/23/18 09:18 Nicotine (Nicoderm) 1 patch Q24H TDERMAL 07/20/18 18:00 08/08/18 17:59 07/23/18 17:54 Ondansetron HCl (Zofran) 4 mg Q6H PRN IVP Nausea & Vomiting 07/19/18 19:00 08/01/18 18:59 Pantoprazole (Protonix) 40 mg EVERY 12 HOURS IVP 07/19/18 21:00 08/09/18 20:59 07/23/18 09:18 Phytonadione (Vitamin K) 10 mg QWEEK SUBQ 07/24/18 20:00 08/23/18 19:59 Vancomycin HCl (Vanco rx to dose) 1 ea DAILY PRN MISC Per rx protocol 07/19/18 19:00 08/18/18 18:59 Vancomycin HCl 1 gm/Dextrose 275 ml @ 183.708 mls/hr Q8HR IVPB 07/23/18 14:00 07/28/18 13:59 07/23/18 15:22 Trenton Ladd MD Jul 23, 2018 20:06
[2018-07-23] MEDS ORDERED: Albuterol/Ipratropium 3ml neb HHN PRN (20:15)
[2018-07-23] MEDS: Dyna-Hex 2% Top Sol 2oz TOPIC SCH (20:42)
[2018-07-23] MEDS: FAT EMULSION 20% IV SCH (20:42)
[2018-07-23] MEDS: TPN IV SCH (20:42)
[2018-07-24] VITALS: BP 132/83
[2018-07-24] MEDS: NovoLOG Insulin Flexpen SUBQ SCH ×4 (00:37→17:49)
[2018-07-24 04:00] VITALS: BP 135/86
[2018-07-24 05:31] LABS: BASOPHILS % (AUTO) 0.6 % (0.0-2.0); EOSINOPHILS % (AUTO) 2.5 % (0.0-3.0); HEMATOCRIT 35.9 % (42.0-52.0); HEMOGLOBIN 12.5 G/DL (14.2-18.0); MEAN CORPUSCULAR VOLUME 100 FL (80-99); MONOCYTES % (AUTO) 5.1 % (1.0-10.0); NEUTROPHILS % (AUTO) 83.8 % (45.0-75.0); PLATELET COUNT 602 K/UL (150-450); RED BLOOD COUNT 3.58 M/UL (4.70-6.10); RED CELL DISTRIBUTION WIDTH 13.6 % (11.6-14.8); WHITE BLOOD COUNT 17.6 K/UL (4.8-10.8)
[2018-07-24] MEDS: Vancomycin 1gm/D5W 275ml IVPB SCH ×4 (06:04→14:51)
[2018-07-24 06:22] LABS: ANION GAP 9 mmol/L (5-15); BLOOD UREA NITROGEN 16 mg/dL (7-18); CALCIUM 8.7 MG/DL (8.5-10.1); CARBON DIOXIDE 25 MMOL/L (21-32); CHLORIDE 103 MMOL/L (98-107); CREATININE 0.8 MG/DL (0.55-1.30); PHOSPHORUS 2.8 MG/DL (2.5-4.9); POTASSIUM 3.8 MMOL/L (3.5-5.1); SODIUM 137 MMOL/L (136-145)
--- NOTE | 2018-07-24 07:34 | NUR ---
HAND-OFF: Report given to Chris Terrazas RN. Pt stable.
--- NOTE | 2018-07-24 07:35 | NUR ---
NURSE NOTES: Received report from JAVIER Marks. Pt stable in bed with TPN running at prescribed rate. Bed in lowest position with two side rails up and aspiration precautions in place. TPN has completed and new bag will be hung. No signs and symptoms of acute distress noted at this time. Bed side table and alarm within reach. Will continue to monitor and follow the plan of care. Addendum: 07/24/18 at 1304 by SRAVANTHI MADERA RN RN NURSE NOTES: TPN bag is half full will be changed at night time.
[2018-07-24 08:00] VITALS: BP 143/92
--- NOTE | 2018-07-24 08:00 | General Progress Note ---
Progress Note Progress Note leukocytosis; labs noted lipase trending down recovering -d/c ng tube -start clear liquids [place] Antonio Jul 24, 2018 08:00
[2018-07-24] MEDS: Heparin 5000 units/ml inj SUBQ SCH ×2 (08:21→20:48)
[2018-07-24] MEDS: Metoprolol 25mg tab NG SCH (08:37)
[2018-07-24] MEDS: Pantoprazole Inj IVP SCH ×2 (08:37→20:48)
[2018-07-24] MEDS: Docusate 100mg/10ml Liq NG SCH ×2 (08:37→17:19)
--- NOTE | 2018-07-24 09:43 | NUR ---
RADIOLOGY DEPT CHEST X-RAY DONE.-P.DYE
[2018-07-24 12:00] VITALS: BP 137/86
--- NOTE | 2018-07-24 12:04 | Diagnostic Imaging Report ---
Indication: Dyspnea Comparison: 07/21/2018 A single view chest radiograph was obtained. Findings: Hazy opacity at the right lung base may be a pleural effusion. Heart is enlarged. There is suggestion of mild interstitial edema. PICC line is present on the left. IMPRESSION: Suspected mild interstitial edema and a small right pleural effusion.
--- NOTE | 2018-07-24 12:32 | General Progress Note ---
Assessment/Plan Assessment/Plan #Sepsis #Acute purulent gangrenous cholecystitis. #klebsiella cholecystitis #acute Hypoxic respiratory failure #Acute Metabolic Encephalopathy - due to alcohol withdrawal and sepsis - meropenem, vancomycin and diflucan - bcx x 2 ngtd - s/p ercp 07/12 - gen surg following s/p lap jocelyn converted to open jocelyn 07/12 - extubated on 07/16/18 - off o2 ncl - pulm following appreciated - pain control - appreciate surg recs - fluids - tpn -NG tube removal per surgery today -Advance diet -PT ordered #Acute Blood Loss Anemia - due to recent surgery - no overt bleeding noted currently - hgb 6.8 07/15, transfused 2U, 9.7 (07/16) - stable #Pleural Effusions - b/l - per mrcp - stable - pulm consult appreciated #Alcohol Pancreatitis #Intractable abdominal pain #intractable nausea/vomiting #Transaminitis #Alcohol Hepatitis #Alcohol withdrawals #Fatty Liver Disease #Hepatitis C - LFTs 446/532 - Lipase 687 - due to alcohol abuse - INR 1.0 - discriminant function, 4.5 , no need for steroids - US abd completed and reviewed, showing fatty liver disease. GS present, no obstruction noted - ppi - PRN antiemetics, zofran prn - Banana bag - close lab monitoring - IVF - monitor carefully for withdrawals - tube feeds held due to worsening pancreatitis - TPN - Per GI, will need ERCP in 6-8 weeks for stent removal #Failure to thrive - due to alcohol withdrawals and the above - alcoholic pancreatitis - fluids #Alcohol Abuse - educated on cessation for 15 mins - patient states he understands and will try to quit - RN notified to monitor carefully with withdrawals - prn ativan - ciwa #Uncontrolled HTN - improved - clonidine 0.1 mg po prn - amlodipine 10mg qday - due to withdrawals #Tobacco abuse - smokes 1ppd - educated on smoking cessation for over 15 mins, states he understands the risks of smoking and will try to quit diet: started clears 07/24, Advance as per surgery Subjective Date patient seen: Jul 24, 2018 Time patient seen: 08:00 ROS Limited/Unobtainable: Yes Allergies: Coded Allergies: No Known Allergies (Unverified , 06/01/16) Objective Last 24 Hour Vital Signs Date Time Temp Pulse Resp B/P (MAP) Pulse Ox O2 Delivery O2 Flow Rate FiO2 07/24/18 08:37 115 143/92 07/24/18 08:37 115 143/92 07/24/18 08:00 Nasal Cannula 3.0 Nasal Cannula 3.0 07/24/18 08:00 97.6 115 16 143/92 (109) 94 07/24/18 08:00 114 07/24/18 07:00 97 Nasal Cannula 3.0 32 07/24/18 07:00 Nasal Cannula 3.0 32 07/24/18 04:00 97.5 115 28 135/86 (102) 95 07/24/18 04:00 Nasal Cannula 3.0 Nasal Cannula 3.0 07/24/18 04:00 114 07/24/18 00:00 Nasal Cannula 3.0 Nasal Cannula 3.0 07/24/18 00:00 97.8 112 24 132/83 (99) 93 07/24/18 00:00 110 07/23/18 20:00 Nasal Cannula 3.0 Nasal Cannula 3.0 07/23/18 20:00 109 07/23/18 20:00 97.9 100 22 125/84 (98) 97 07/23/18 16:00 99 07/23/18 16:00 Nasal Cannula 3.0 Nasal Cannula 3.0 07/23/18 16:00 97.7 100 22 119/78 (92) 97 Intake and Output 07/23/18 07/24/18 19:00 07:00 Output Total 1710 ml 900 ml Balance -1710 ml -900 ml Output Urine Total 1700 ml 900 ml Drainage Total 10 ml # Bowel Movements 2 Laboratory Tests 07/24/18 03:40: White Blood Count 17.6H, Red Blood Count 3.58L, Hemoglobin 12.5L, Hematocrit 35.9L, Mean Corpuscular Volume 100H, Mean Corpuscular Hemoglobin 34.9H, Mean Corpuscular Hemoglobin Concent 34.9, Red Cell Distribution Width 13.6, Platelet Count 602H, Mean Platelet Volume 6.3L, Neutrophils (%) (Auto) 83.8H, Lymphocytes (%) (Auto) 8.0L, Monocytes (%) (Auto) 5.1, Eosinophils (%) (Auto) 2.5, Basophils (%) (Auto) 0.6, Sodium Level 137, Potassium Level 3.8, Chloride Level 103, Carbon Dioxide Level 25, Anion Gap 9, Blood Urea Nitrogen 16, Creatinine 0.8, Estimat Glomerular Filtration Rate > 60, Glucose Level 127H, Calcium Level 8.7, Phosphorus Level 2.8, Magnesium Level 2.4, Lipase 1260H Height (Feet): 5 Height (Inches): 9.00 Weight (Pounds): 160 General Appearance: no apparent distress, alert Neck: normal alignment, supple Cardiovascular: normal peripheral pulses, normal rate, regular rhythm Respiratory/Chest: chest wall non-tender, lungs clear Abdomen: normal bowel sounds, non tender Extremities: normal range of motion 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
[2018-07-24] MEDS ORDERED: NS 275ml ONE (12:45)
[2018-07-24] MEDS ORDERED: Tubing IV Secondary IV ONE (12:45)
--- NOTE | 2018-07-24 12:54 | NUR ---
[facility] SI: ALCOHOLIC PANCREATITIS T. 97.5 HR 115 RR 16 B/P 143/92 3L NC O2 SAT @ 98% WBC 17.6 LIPASE 1260 CXR= SMALL PLEURAL EFFUSION IS: TPN IV VANCO IV MEROPENEM IV PREVACID STEP DOWN STATUS
--- NOTE | 2018-07-24 13:47 | NUR ---
ST NOTE: BEDSIDE SWALLOW EVAL RECEIVED BEDSIDE SWALLOW EVAL ORDER CHART REVIEWED PRIOR THE EVALUATION. PT IS A 62-YEAR-OLD MALE WHO WAS ADMITTED DUE TO ALCOHOLIC PANCREATITIS. DYSPHAGIA RISK FACTORS: ETOH, GERD, SMOKING(1PK/DAY). DURING THE HOSPITALIZATION, PT UNDERWENT SURGERY( S/P OPEN ARACELIS, GANGRENOUS PURULENT CHOLECYSTITIS) AND INTUBATED FOR 4 DAYS FROM 07/12/18-07/16/18. PER CXR: Suspected mild interstitial edema and a small right pleural effusion. 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 No acute findings. Moderate atrophy of the brain. PLOF: PT RESIDES AT HOME WITH FAMILY. CURRENT STATUS: PT IS ON CLEAR LIQUID DIET. PT SEEN AT BEDSIDE IN LATE AM. PT'S AT BEDSIDE. PT AWAKE BUT SEEMS VERY WEAK, PT WITH NC(3L), DRY MOUTH WAS NOTED. PER RNCLEMENTE, PT WAS ABLE TO TAKE CRUSHED MED, HOWEVER, IT TOOK SOME TIMES FOR PT TO SWALLOW. GIVEN THIN LIQUID VIA TSP AND NECTAR THICK(TSP) INITIAL IMPRESSION: PROBABLE MODERATE OR WORSENED OROPHARYNGEAL DYSPHAGIA DECREASED LABIAL MOVEMENT AND DECREASED LINGUAL MOVEMENT EVEN WHEN REQUESTED. ANTERIOR SPILLAGE WITH THIN LIQUIDS. MODERATELY INCREASED ORAL TRANSIT TIME AND OROPHARYNGEAL TRANSIT TIME, FAIR LARYNGEAL ELEVATION, NO OVERT S/S OF ASPIRATION WITH NECTAR THICK LIQUIDS. HAS HIGH RISK FOR ASPIRATION COMPOUNDED OF OVERALL WEAKNESS RECOMMENDATIONS: 1. HOLD PO FOR NOW. 2. CONTINUE TPN TO MEET NUTRITION NEEDS. 3. VIDEOSWALLOW STUDY D/W PT'S , AND RNCLEMENTE. POSTED NPO SIGN.
--- NOTE | 2018-07-24 14:48 | GI Progress Note ---
Assessment/Plan Problems: (1) Abnormal LFTs ICD Codes: R79.89 - Other specified abnormal findings of blood chemistry SNOMED: 892075913 (2) Cholecystitis, acute ICD Codes: K81.0 - Acute cholecystitis SNOMED: 84698723 (3) Hepatitis C ICD Codes: B19.20 - Unspecified viral hepatitis C without hepatic coma SNOMED: 31245989 (4) Fatty liver ICD Codes: K76.0 - Fatty (change of) liver, not elsewhere classified SNOMED: 145539108 (5) Alcoholic pancreatitis ICD Codes: K85.20 - Alcohol induced acute pancreatitis without necrosis or infection SNOMED: 267884031 (6) Pancreatitis, acute ICD Codes: K85.90 - Acute pancreatitis without necrosis or infection, unspecified SNOMED: 413735301 Status: progressing Status Narrative Discussed with Dr. Yip Assessment/Plan SUMMARY OF FINDINGS: 1. 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 2. Status post ERCP with sphincterotomy, balloon assistance sludge and some pus extraction from the common bile duct and then stent placement. s/p open jocelyn, now in ICU with pancreatitis hepatitis C positive Pancreatitis RECOMMENDATIONS: NGT removed today, clear liquid diet trial Will DC TPN once patient tolerates diet prn transfusions Trend lipase fu labs The patient will need repeat ERCP in 6 to 8 weeks for stent removal. outpatient Hep C tx The patient was seen and examined at bedside and all new and available data was reviewed in the patients chart. I agree with the above findings, impression and plan. (Patient seen earlier today. Signature stamp does not reflect patient encounter time.). - Toñito Yip MD Subjective Subjective hunger Objective Last 24 Hour Vital Signs Date Time Temp Pulse Resp B/P (MAP) Pulse Ox O2 Delivery O2 Flow Rate FiO2 07/24/18 12:00 98.6 102 18 137/86 (103) 97 07/24/18 12:00 Nasal Cannula 3.0 Nasal Cannula 3.0 07/24/18 12:00 103 07/24/18 08:37 115 143/92 07/24/18 08:37 115 143/92 07/24/18 08:00 Nasal Cannula 3.0 Nasal Cannula 3.0 07/24/18 08:00 97.6 115 16 143/92 (109) 94 07/24/18 08:00 114 07/24/18 07:00 97 Nasal Cannula 3.0 32 07/24/18 07:00 Nasal Cannula 3.0 32 07/24/18 04:00 97.5 115 28 135/86 (102) 95 07/24/18 04:00 Nasal Cannula 3.0 Nasal Cannula 3.0 07/24/18 04:00 114 07/24/18 00:00 Nasal Cannula 3.0 Nasal Cannula 3.0 07/24/18 00:00 97.8 112 24 132/83 (99) 93 07/24/18 00:00 110 07/23/18 20:00 Nasal Cannula 3.0 Nasal Cannula 3.0 07/23/18 20:00 109 07/23/18 20:00 97.9 100 22 125/84 (98) 97 07/23/18 16:00 99 07/23/18 16:00 Nasal Cannula 3.0 Nasal Cannula 3.0 07/23/18 16:00 97.7 100 22 119/78 (92) 97 Intake and Output 07/23/18 07/24/18 18:59 06:59 Intake Total 78 ml Output Total 1710 ml 900 ml Balance -1632 ml -900 ml IV Total 78 ml Output Urine Total 1700 ml 900 ml Drainage Total 10 ml # Bowel Movements 2 Laboratory Tests Test 07/24/18 03:40 07/24/18 12:55 White Blood Count 17.6 K/UL (4.8-10.8) H Red Blood Count 3.58 M/UL (4.70-6.10) L Hemoglobin 12.5 G/DL (14.2-18.0) L Hematocrit 35.9 % (42.0-52.0) L Mean Corpuscular Volume 100 FL (80-99) H Mean Corpuscular Hemoglobin 34.9 PG (27.0-31.0) H Mean Corpuscular Hemoglobin Concent 34.9 G/DL (32.0-36.0) Red Cell Distribution Width 13.6 % (11.6-14.8) Platelet Count 602 K/UL (150-450) H Mean Platelet Volume 6.3 FL (6.5-10.1) L Neutrophils (%) (Auto) 83.8 % (45.0-75.0) H Lymphocytes (%) (Auto) 8.0 % (20.0-45.0) L Monocytes (%) (Auto) 5.1 % (1.0-10.0) Eosinophils (%) (Auto) 2.5 % (0.0-3.0) Basophils (%) (Auto) 0.6 % (0.0-2.0) Sodium Level 137 MMOL/L (136-145) Potassium Level 3.8 MMOL/L (3.5-5.1) Chloride Level 103 MMOL/L (98-107) Carbon Dioxide Level 25 MMOL/L (21-32) Anion Gap 9 mmol/L (5-15) Blood Urea Nitrogen 16 mg/dL (7-18) Creatinine 0.8 MG/DL (0.55-1.30) Estimat Glomerular Filtration Rate > 60 mL/min (>60) Glucose Level 127 MG/DL (74-106) H Calcium Level 8.7 MG/DL (8.5-10.1) Phosphorus Level 2.8 MG/DL (2.5-4.9) Magnesium Level 2.4 MG/DL (1.8-2.4) Lipase 1260 U/L (73-393) H Vancomycin Level Trough 15.7 ug/mL (5.0-12.0) H Height (Feet): 5 Height (Inches): 9.00 Weight (Pounds): 160 General Appearance: WD/WN, no apparent distress, alert Cardiovascular: normal rate Respiratory/Chest: normal breath sounds, no respiratory distress Abdominal Exam: normal bowel sounds, non tender, soft Extremities: non-tender Sonja Neely NP Jul 24, 2018 14:48
--- NOTE | 2018-07-24 15:10 | Pulmonology Progress Note ---
Assessment/Plan Problems: (1) Cholecystitis, acute (2) Alcoholic pancreatitis (3) Pancreatitis, acute (4) Alcohol abuse (5) Abnormal LFTs (6) Gangrenous cholecystitis (7) Respiratory disorder with ventilator dependence Assessment & Plan: Extubated and TTF (8) Blood loss anemia (9) Pneumonia (10) Hepatitis C (11) Fatty liver Assessment/Plan Optimize pulmonary hygiene/mobilize as tolerated Titrate down FiO2 to keep SaO2 > 90% PRN HHN's Abx (Jair/Vanco) + flucon per ID CXR F/U GI and surgery recs TPN, trend Amylase/Lipase, repeat ERCP in the future CLD per GI/surg, needs VSS Montor volumes and renal function DVT Px: Hep SQ FC Subjective Allergies: Coded Allergies: No Known Allergies (Unverified , 06/01/16) Subjective AFVSS on RA On TPN, NGT out plan for CLD but failed 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 and alert No cough, no SOB, no F/C Pain better Objective Last 24 Hour Vital Signs Date Time Temp Pulse Resp B/P (MAP) Pulse Ox O2 Delivery O2 Flow Rate FiO2 07/24/18 12:00 98.6 102 18 137/86 (103) 97 07/24/18 12:00 Nasal Cannula 3.0 Nasal Cannula 3.0 07/24/18 12:00 103 07/24/18 08:37 115 143/92 07/24/18 08:37 115 143/92 07/24/18 08:00 Nasal Cannula 3.0 Nasal Cannula 3.0 07/24/18 08:00 97.6 115 16 143/92 (109) 94 07/24/18 08:00 114 07/24/18 07:00 97 Nasal Cannula 3.0 32 07/24/18 07:00 Nasal Cannula 3.0 32 07/24/18 04:00 97.5 115 28 135/86 (102) 95 07/24/18 04:00 Nasal Cannula 3.0 Nasal Cannula 3.0 07/24/18 04:00 114 07/24/18 00:00 Nasal Cannula 3.0 Nasal Cannula 3.0 07/24/18 00:00 97.8 112 24 132/83 (99) 93 07/24/18 00:00 110 07/23/18 20:00 Nasal Cannula 3.0 Nasal Cannula 3.0 07/23/18 20:00 109 07/23/18 20:00 97.9 100 22 125/84 (98) 97 07/23/18 16:00 99 07/23/18 16:00 Nasal Cannula 3.0 Nasal Cannula 3.0 07/23/18 16:00 97.7 100 22 119/78 (92) 97 Intake and Output 07/23/18 07/24/18 18:59 06:59 Intake Total 78 ml Output Total 1710 ml 900 ml Balance -1632 ml -900 ml IV Total 78 ml Output Urine Total 1700 ml 900 ml Drainage Total 10 ml # Bowel Movements 2 General Appearance: cachetic HEENT: normocephalic, atraumatic, anicteric, mucous membranes moist Respiratory/Chest: chest wall non-tender, lungs clear, normal breath sounds, no respiratory distress, no accessory muscle use Cardiovascular: normal peripheral pulses, normal rate, regular rhythm Abdomen: normal bowel sounds, soft, non tender, other - wound dresswed Extremities: no cyanosis, no clubbing, no edema Laboratory Tests 07/24/18 03:40: White Blood Count 17.6H, Red Blood Count 3.58L, Hemoglobin 12.5L, Hematocrit 35.9L, Mean Corpuscular Volume 100H, Mean Corpuscular Hemoglobin 34.9H, Mean Corpuscular Hemoglobin Concent 34.9, Red Cell Distribution Width 13.6, Platelet Count 602H, Mean Platelet Volume 6.3L, Neutrophils (%) (Auto) 83.8H, Lymphocytes (%) (Auto) 8.0L, Monocytes (%) (Auto) 5.1, Eosinophils (%) (Auto) 2.5, Basophils (%) (Auto) 0.6, Sodium Level 137, Potassium Level 3.8, Chloride Level 103, Carbon Dioxide Level 25, Anion Gap 9, Blood Urea Nitrogen 16, Creatinine 0.8, Estimat Glomerular Filtration Rate > 60, Glucose Level 127H, Calcium Level 8.7, Phosphorus Level 2.8, Magnesium Level 2.4, Lipase 1260H 07/24/18 12:55: Vancomycin Level Trough 15.7H Current Medications Medications (Trade) Dose Ordered Sig/[place] Route PRN Reason Start Time Stop Time Status Last Admin Dose Admin Acetaminophen (Tylenol) 650 mg Q4H PRN RECTAL Prn for Temp >100.5 07/19/18 19:00 08/14/18 18:59 07/19/18 20:20 Al Hydroxide/Mg Hydroxide (Mylanta) 15 ml Q6H PRN NG DYSPEPSIA 07/19/18 19:00 08/11/18 18:59 Albuterol/ Ipratropium (Albuterol/ Ipratropium) 3 ml Q4H PRN HHN Shortness of Breath 07/23/18 20:15 07/28/18 20:14 Amlodipine Besylate (Norvasc) 10 mg DAILY NG 07/20/18 09:00 08/04/18 13:48 07/24/18 08:37 Chlorhexidine Gluconate (Estrella-Hex 2%) 1 applic DAILY@2000 TOPIC 07/19/18 20:00 08/15/18 19:59 07/23/18 20:42 Clonidine HCl (Catapres Tab) 0.1 mg Q8H PRN NG hypertension 07/19/18 19:00 08/04/18 18:59 Dextrose (Dextrose 50%) 25 ml Q30M PRN IV Hypoglycemia 07/19/18 19:00 08/17/18 00:00 Dextrose (Dextrose 50%) 50 ml Q30M PRN IV hypoglycemia 07/19/18 19:00 08/17/18 00:00 Diphenhydramine HCl (Benadryl) 12.5 mg Q6H PRN IVP Itching/Pruritis 07/19/18 19:00 08/11/18 18:59 Docusate Sodium (Colace) 100 mg TWICE A DAY NG 07/20/18 09:00 08/12/18 08:59 07/24/18 08:37 Fat Emulsion Intravenous 192 ml/Amino Acids/ Electrolytes/ Dextrose 1,872 ml @ 78 mls/hr Q24H IV 07/19/18 20:00 08/16/18 19:59 07/23/18 20:42 Fluconazole/ Sodium Chloride 200 ml @ 200 mls/hr Q24H IV 07/20/18 16:30 07/25/18 16:29 07/23/18 17:45 Heparin Sodium (Porcine) (Heparin 5000 units/ml) 5,000 units Q12HR SUBQ 07/19/18 21:00 08/02/18 08:59 07/22/18 08:44 Hydromorphone HCl (Dilaudid) 1 mg Q3H PRN IVP pain score 4-6 07/19/18 19:00 07/26/18 18:59 Hydromorphone HCl (Dilaudid) 2 mg Q3H PRN IVP pain score 7-10 07/19/18 19:00 07/26/18 18:59 Insulin Aspart (NovoLOG) No Dose Q6HR SUBQ 07/20/18 00:00 08/17/18 00:00 07/24/18 12:07 Lorazepam (Ativan 2mg/ml 1ml) 1 mg Q1H PRN IV For Anxiety 07/19/18 19:00 07/26/18 18:59 Magnesium Hydroxide (Mom) 30 ml BIDPRN PRN NG Constipation 07/19/18 19:00 08/11/18 18:59 Meropenem 1 gm/ Sodium Chloride 100 ml @ 200 mls/hr Q8HR IVPB 07/22/18 14:00 07/26/18 07:59 07/24/18 14:51 Metoprolol Tartrate (Lopressor) 25 mg DAILY NG 07/20/18 09:00 08/13/18 20:29 07/24/18 08:37 Nicotine (Nicoderm) 1 patch Q24H TDERMAL 07/20/18 18:00 08/08/18 17:59 07/23/18 17:54 Ondansetron HCl (Zofran) 4 mg Q6H PRN IVP Nausea & Vomiting 07/19/18 19:00 08/01/18 18:59 Pantoprazole (Protonix) 40 mg EVERY 12 HOURS IVP 07/19/18 21:00 08/09/18 20:59 07/24/18 08:37 Phytonadione (Vitamin K) 10 mg QWEEK SUBQ 07/24/18 20:00 08/23/18 19:59 Vancomycin HCl (Vanco rx to dose) 1 ea DAILY PRN MISC Per rx protocol 07/19/18 19:00 08/18/18 18:59 Vancomycin HCl 1 gm/Dextrose 275 ml @ 183.708 mls/hr Q8HR IVPB 07/23/18 14:00 07/28/18 13:59 07/24/18 14:51 Trenton Ladd MD Jul 24, 2018 15:10
[2018-07-24 16:00] VITALS: BP 132/86
--- NOTE | 2018-07-24 17:01 | General Progress Note ---
Assessment/Plan Assessment/Plan Anemia of chronic disease due to underlying chronic medical issues, multifactorial, pancreatitis --> Anemia workup has been ordered/reviewed as well --> No evidence of hemolysis is noted, peripheral smear has been reviewed. --> Hgb goal >7. Transfuse prn. --> Epogen or iron at this time is not particularly indicated --> Medications have been reviewed # Thrombocytopenia is likely related to underlying reactive processs from pancreatitis, acute, as well as alcoholic intoxication and myelosuppression --> also patient has a history of hepatitis C from prior admission --> smear has been reviewed --> heparin sq is okay if needed for dvt ppx # Erythrocytosis is likely related to dehydration --> hgb goal >7, no evidence of bleeding currently --> given ivf already # Leukocytosis no e/o annie infection --> could be due to reactive process v cholecystitis --> wbc trend: 22-->18-->16-->14-->18 --> peripheral smear has been reviewed --> ercp repeat in 6-8 weeks, stent was placed # Pancreatitis with alcohol abuse --> recommend etoh cessation --> amylase and lipase prn --> Status post ERCP with sphincterotomy and stent placement # Transaminitis --> likely related to etoh abuse --> in past seen by gi # Alcohol abuse -- recommend cessation The timing of this note does not necessarily reflect the time of the patient was seen. Greatly appreciate consultation! Subjective Constitutional: Denies: no symptoms, chills, diaphoresis, fever, malaise, weakness, other HEENT: Denies: no symptoms, eye pain, blurred vision, tearing, double vision, ear pain, ear discharge, nose pain, nose congestion, throat pain, throat swelling, mouth pain, mouth swelling, other Cardiovascular: Denies: no symptoms, chest pain, edema, irregular heart rate, lightheadedness, palpitations, syncope, other Respiratory: Denies: no symptoms, cough, orthopnea, shortness of breath, SOB with excertion, SOB at rest, sputum, stridor, wheezing, other Gastrointestinal/Abdominal: Denies: no symptoms, abdomen distended, abdominal pain, black stools, tarry stools, blood in stool, constipated, diarrhea, difficulty swallowing, nausea, poor appetite, poor fluid intake, rectal bleeding , vomiting, other Neurologic/Psychiatric: Denies: no symptoms, anxiety, depressed, emotional problems, headache, numbness, paresthesia, pre-existing deficit, seizure, tingling, tremors, weakness, other Endocrine: Denies: no symptoms, excessive sweating, flushing, intolerance to cold, intolerance to heat, increased hunger, increased thirst, increased urine, unexplained weight gain, unexplained weight loss, other Hematologic/Lymphatic: Denies: no symptoms, anemia, easy bleeding, easy bruising, other Allergies: Coded Allergies: No Known Allergies (Unverified , 06/01/16) Subjective 07/05: bp was high today and dc was cancelled until tomorow, on librium 07/06: wbc was high though other counts are better, no f/c 07/10: seen by bedside, heart rate increased, appears agitated, wbc 13.9 07/11: to get ercp tomorrow, surgery and gi following 07/12 ercp, sphincterotomy, stent placement surgery done today, currently having tremors and tachy. wbc 15.9, hgb 14, plt 429 07/13: Pt is intubated, seen by bedside,wbc 22, on abx, no acute distress 07/14: awake and comfortable, still intubated on vent, labs noted hb trending down, wbc 18, hgb 8. 07/16: seen by bedside, awake, comfortable, wbc 14, hgb 9, plt 613 07/17: awake, comfortable, status post ERCP with sphincterotomy wbc 21, hgb 10, plt 689. 07/18; seen by bedside, awake comfortable, on venturi mask, wbc 23, plt 754. 07/19: seen by bedside, awake and comfortable, no events, wbc 21 07/20: now out of the icu, doing better, wbc improved, remains on abx as per ID 07/22: Pt is awake, comfortable, wbc 16, lt 632, on abx 07/23 Pt is awake, comfortable, wbc 15, plt 574, on abx, CXR revelals, Increasing opacities of the right lung and Slightly increasing right pleural effusion 07/24: ng has been removed, seen by other consultants, hgb has improved, no bleeding Objective Last 24 Hour Vital Signs Date Time Temp Pulse Resp B/P (MAP) Pulse Ox O2 Delivery O2 Flow Rate FiO2 2/5/19 12:00 98.6 102 18 137/86 (103) 97 07/24/18 12:00 Nasal Cannula 3.0 Nasal Cannula 3.0 07/24/18 12:00 103 07/24/18 08:37 115 143/92 07/24/18 08:37 115 143/92 07/24/18 08:00 Nasal Cannula 3.0 Nasal Cannula 3.0 07/24/18 08:00 97.6 115 16 143/92 (109) 94 07/24/18 08:00 114 07/24/18 07:00 97 Nasal Cannula 3.0 32 07/24/18 07:00 Nasal Cannula 3.0 32 07/24/18 04:00 97.5 115 28 135/86 (102) 95 07/24/18 04:00 Nasal Cannula 3.0 Nasal Cannula 3.0 07/24/18 04:00 114 07/24/18 00:00 Nasal Cannula 3.0 Nasal Cannula 3.0 07/24/18 00:00 97.8 112 24 132/83 (99) 93 07/24/18 00:00 110 07/23/18 20:00 Nasal Cannula 3.0 Nasal Cannula 3.0 07/23/18 20:00 109 07/23/18 20:00 97.9 100 22 125/84 (98) 97 Intake and Output 07/23/18 07/24/18 18:59 06:59 Intake Total 78 ml Output Total 1710 ml 900 ml Balance -1632 ml -900 ml IV Total 78 ml Output Urine Total 1700 ml 900 ml Drainage Total 10 ml # Bowel Movements 2 Laboratory Tests 07/24/18 03:40: White Blood Count 17.6H, Red Blood Count 3.58L, Hemoglobin 12.5L, Hematocrit 35.9L, Mean Corpuscular Volume 100H, Mean Corpuscular Hemoglobin 34.9H, Mean Corpuscular Hemoglobin Concent 34.9, Red Cell Distribution Width 13.6, Platelet Count 602H, Mean Platelet Volume 6.3L, Neutrophils (%) (Auto) 83.8H, Lymphocytes (%) (Auto) 8.0L, Monocytes (%) (Auto) 5.1, Eosinophils (%) (Auto) 2.5, Basophils (%) (Auto) 0.6, Sodium Level 137, Potassium Level 3.8, Chloride Level 103, Carbon Dioxide Level 25, Anion Gap 9, Blood Urea Nitrogen 16, Creatinine 0.8, Estimat Glomerular Filtration Rate > 60, Glucose Level 127H, Calcium Level 8.7, Phosphorus Level 2.8, Magnesium Level 2.4, Lipase 1260H 07/24/18 12:55: Vancomycin Level Trough 15.7H Height (Feet): 5 Height (Inches): 9.00 Weight (Pounds): 160 Objective Physical Exam General Appearance: A+O x3, NAD, ++ asterixis HEENT: normocephalic, atraumatic Neck: non-tender, normal alignment Respiratory/Chest: chest wall non-tender, lungs clear Cardiovascular/Chest: normal peripheral pulses, normal rate Abdomen: normal bowel sounds, non tender Extremities: normal range of motion Guy Salazar MD Jul 24, 2018 17:01
--- NOTE | 2018-07-24 19:01 | Infectious Diseases Prog Note ---
Assessment/Plan Assessment/Plan ASSESSMENT AND PLAN: 1. sepsis, klebsiella cholecystitis, enterobacter pna, leukocytosis, fevers, sirs, fungal uti, fungemia risk - meropenem and diflcuan - day # 5 combination, discontinue vancomycin - monitor labs, wbc, temps and chest x-ray - dequan/supportive care - clinically improved, less fevers, more alert, leukocytosis persists 3. Smoking use. 4. Anemia. 5. Thrombocytosis. 6. No history of diabetes, hypertension, but he is on Norvasc. 7. No known allergies. 8. Social history positive for smoking and alcohol use. No history of intravenous drug abuse. 9. MAR was noted. 10. Case discussed with RN. 11. Continue treatment per primary consultants. 12. Case discussed at length the ICU nurse, the patient currently in ICU. 13. Continue skin care protocol and pulmonary treatments for now. Subjective Constitutional: Denies: fever HEENT: Reports: congestion - less Respiratory: Reports: shortness of breath - less Cardiovascular: Denies: chest pain Gastrointestinal/Abdominal: Denies: nausea, vomiting, diarrhea Genitourinary: Reports: other - + melchor Neurologic: Denies: headache Psychiatric: Reports: no symptoms - na, other - agitated Skin: Denies: rash Hematologic: Denies: bleeding Musculoskeletal: Denies: pain Allergies: Coded Allergies: No Known Allergies (Unverified , 06/01/16) Objective Vital Signs Last 24 Hour Vital Signs Date Time Temp Pulse Resp B/P (MAP) Pulse Ox O2 Delivery O2 Flow Rate FiO2 07/24/18 16:00 Nasal Cannula 3.0 Nasal Cannula 3.0 07/24/18 16:00 98.2 106 18 132/86 (101) 95 07/24/18 16:00 107 07/24/18 12:00 98.6 102 18 137/86 (103) 97 07/24/18 12:00 Nasal Cannula 3.0 Nasal Cannula 3.0 07/24/18 12:00 103 07/24/18 08:37 115 143/92 07/24/18 08:37 115 143/92 07/24/18 08:00 Nasal Cannula 3.0 Nasal Cannula 3.0 07/24/18 08:00 97.6 115 16 143/92 (109) 94 07/24/18 08:00 114 07/24/18 07:00 97 Nasal Cannula 3.0 32 07/24/18 07:00 Nasal Cannula 3.0 32 07/24/18 04:00 97.5 115 28 135/86 (102) 95 07/24/18 04:00 Nasal Cannula 3.0 Nasal Cannula 3.0 07/24/18 04:00 114 07/24/18 00:00 Nasal Cannula 3.0 Nasal Cannula 3.0 07/24/18 00:00 97.8 112 24 132/83 (99) 93 07/24/18 00:00 110 07/23/18 20:00 Nasal Cannula 3.0 Nasal Cannula 3.0 07/23/18 20:00 109 07/23/18 20:00 97.9 100 22 125/84 (98) 97 Height (Feet): 5 Height (Inches): 9.00 Weight (Pounds): 160 General Appearance: no acute distress HEENT: normocephalic, atraumatic, anicteric, mucous membranes moist Respiratory/Chest: normal breath sounds, no respiratory distress, no accessory muscle use, crackles/rales, rhonchi - bilaterally Cardiovascular: normal rate, regular rhythm, no gallop/murmur, no JVD Abdomen: normal bowel sounds, soft, non tender, no organomegaly, non distended Genitourinary: other - + melchor - urine clear Extremities: no cyanosis Skin: no rash Neurologic/Psychiatric: 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 Apparent elevation of the right hemidiaphragm is again noted. The left lung demonstrates a very faint opacity in the left midlung which is not evident previously. However, interstitial congestion in the left lung has improved. Impression: Persistent right-sided pleural effusion and fairly extensive parenchymal infiltrate or edema Improved left lung interstitial congestion. Focal patchy left lung abnormality was not evident previously, however, and could represent a small area of infiltrate Chest x-ray - 07/22/18 - COMPARISON: Chest x-ray 07/19/18 837 FINDINGS: Lungs: Increasing opacities of the right lung. Pleural space: Slightly increasing right pleural effusion. No pneumothorax. Heart: Unremarkable. No cardiomegaly. Mediastinum: Unremarkable. Bones/joints: Unremarkable. Tubes, lines and devices: Left PICC line tip appears further advanced into the right atrium. NG tube traverses diaphragm, tip is not seen. Upper abdomen: Midepigastric gastric surgical clips. IMPRESSION: 1. Left PICC line tip appears further advanced into the right atrium. 2. Increasing opacities of the right lung. 3. Slightly increasing right pleural effusion. 07/24/18 - chest x-ray - A single view chest radiograph was obtained. Findings: Hazy opacity at the right lung base may be a pleural effusion. Heart is enlarged. There is suggestion of mild interstitial edema. PICC line is present on the left. IMPRESSION: Suspected mild interstitial edema and a small right pleural effusion. Microbiology Date/Time Source Procedure Growth Status 07/18/18 20:25 Blood Blood Culture - Final NO GROWTH AFTER 5 DAYS Complete 07/12/18 20:50 Peritoneal Fluid Gram Stain - Final Complete 07/12/18 20:50 Peritoneal Fluid Aerobic Culture - Final NO GROWTH Complete 07/12/18 20:50 Peritoneal Fluid Anaerobic Culture - Final NO GROWTH AFTER 5 DAYS Complete 07/21/18 14:45 Sputum Induced Gram Stain - Final Complete 07/21/18 14:45 Sputum Culture - Final Nery Albicans Usual Respiratory Carolyn Complete 07/21/18 04:00 Urine,Clean Catch Urine Culture - Final Yeast Species Complete Laboratory Tests Test 07/24/18 03:40 07/24/18 12:55 White Blood Count 17.6 K/UL (4.8-10.8) H Red Blood Count 3.58 M/UL (4.70-6.10) L Hemoglobin 12.5 G/DL (14.2-18.0) L Hematocrit 35.9 % (42.0-52.0) L Mean Corpuscular Volume 100 FL (80-99) H Mean Corpuscular Hemoglobin 34.9 PG (27.0-31.0) H Mean Corpuscular Hemoglobin Concent 34.9 G/DL (32.0-36.0) Red Cell Distribution Width 13.6 % (11.6-14.8) Platelet Count 602 K/UL (150-450) H Mean Platelet Volume 6.3 FL (6.5-10.1) L Neutrophils (%) (Auto) 83.8 % (45.0-75.0) H Lymphocytes (%) (Auto) 8.0 % (20.0-45.0) L Monocytes (%) (Auto) 5.1 % (1.0-10.0) Eosinophils (%) (Auto) 2.5 % (0.0-3.0) Basophils (%) (Auto) 0.6 % (0.0-2.0) Sodium Level 137 MMOL/L (136-145) Potassium Level 3.8 MMOL/L (3.5-5.1) Chloride Level 103 MMOL/L (98-107) Carbon Dioxide Level 25 MMOL/L (21-32) Anion Gap 9 mmol/L (5-15) Blood Urea Nitrogen 16 mg/dL (7-18) Creatinine 0.8 MG/DL (0.55-1.30) Estimat Glomerular Filtration Rate > 60 mL/min (>60) Glucose Level 127 MG/DL (74-106) H Calcium Level 8.7 MG/DL (8.5-10.1) Phosphorus Level 2.8 MG/DL (2.5-4.9) Magnesium Level 2.4 MG/DL (1.8-2.4) Lipase 1260 U/L (73-393) H Vancomycin Level Trough 15.7 ug/mL (5.0-12.0) H Current Medications Medications (Trade) Dose Ordered Sig/Mukesh Route PRN Reason Start Time Stop Time Status Last Admin Dose Admin Acetaminophen (Tylenol) 650 mg Q4H PRN RECTAL Prn for Temp >100.5 07/19/18 19:00 08/14/18 18:59 07/19/18 20:20 Al Hydroxide/Mg Hydroxide (Mylanta) 15 ml Q6H PRN NG DYSPEPSIA 07/19/18 19:00 08/11/18 18:59 Albuterol/ Ipratropium (Albuterol/ Ipratropium) 3 ml Q4H PRN HHN Shortness of Breath 07/23/18 20:15 07/28/18 20:14 Amlodipine Besylate (Norvasc) 10 mg DAILY NG 07/20/18 09:00 08/04/18 13:48 07/24/18 08:37 Chlorhexidine Gluconate (Estrella-Hex 2%) 1 applic DAILY@1999 TOPIC 07/19/18 20:00 08/15/18 19:59 07/23/18 20:42 Clonidine HCl (Catapres Tab) 0.1 mg Q8H PRN NG hypertension 07/19/18 19:00 08/04/18 18:59 Dextrose (Dextrose 50%) 25 ml Q30M PRN IV Hypoglycemia 07/19/18 19:00 08/17/18 00:00 Dextrose (Dextrose 50%) 50 ml Q30M PRN IV hypoglycemia 07/19/18 19:00 08/17/18 00:00 Diphenhydramine HCl (Benadryl) 12.5 mg Q6H PRN IVP Itching/Pruritis 07/19/18 19:00 08/11/18 18:59 Docusate Sodium (Colace) 100 mg TWICE A DAY NG 07/20/18 09:00 08/12/18 08:59 07/24/18 17:19 Fat Emulsion Intravenous 192 ml/Amino Acids/ Electrolytes/ Dextrose 1,872 ml @ 78 mls/hr Q24H IV 07/19/18 20:00 08/16/18 19:59 07/23/18 20:42 Fluconazole/ Sodium Chloride 200 ml @ 200 mls/hr Q24H IV 07/25/18 16:30 07/30/18 16:29 UNV Heparin Sodium (Porcine) (Heparin 5000 units/ml) 5,000 units Q12HR SUBQ 07/19/18 21:00 08/02/18 08:59 07/22/18 08:44 Hydromorphone HCl (Dilaudid) 1 mg Q3H PRN IVP pain score 4-6 07/19/18 19:00 07/26/18 18:59 Hydromorphone HCl (Dilaudid) 2 mg Q3H PRN IVP pain score 7-10 07/19/18 19:00 07/26/18 18:59 Insulin Aspart (NovoLOG) No Dose Q6HR SUBQ 07/20/18 00:00 08/17/18 00:00 07/24/18 12:07 Lorazepam (Ativan 2mg/ml 1ml) 1 mg Q1H PRN IV For Anxiety 07/19/18 19:00 07/26/18 18:59 Magnesium Hydroxide (Mom) 30 ml BIDPRN PRN NG Constipation 07/19/18 19:00 08/11/18 18:59 Meropenem 1 gm/ Sodium Chloride 100 ml @ 200 mls/hr Q8HR IVPB 07/24/18 22:00 07/28/18 15:59 UNV Metoprolol Tartrate (Lopressor) 25 mg DAILY NG 07/20/18 09:00 08/13/18 20:29 07/24/18 08:37 Nicotine (Nicoderm) 1 patch Q24H TDERMAL 07/20/18 18:00 08/08/18 17:59 07/24/18 17:19 Ondansetron HCl (Zofran) 4 mg Q6H PRN IVP Nausea & Vomiting 07/19/18 19:00 08/01/18 18:59 Pantoprazole (Protonix) 40 mg EVERY 12 HOURS IVP 07/19/18 21:00 08/09/18 20:59 07/24/18 08:37 Phytonadione (Vitamin K) 10 mg QWEEK SUBQ 07/24/18 20:00 08/23/18 19:59 Tyler Madsen MD Jul 24, 2018 19:01
--- NOTE | 2018-07-24 19:29 | NUR ---
NURSE NOTES: Received report from Johnny Portillo RN. Pt is sleeping in the bed w/o distress in 2L NC, arousable by voice stimuli. HR 108 noted in the monitor. TPN is running at 78ml/H in PICC, melchor cath is applied. IV site is asymptomatic. Safety measures are applied with bed alarm on, bed in lowest position and side rails up x2, and breaks are engaged. Call light and side table are w/in reach. Will follow plans of care.
--- NOTE | 2018-07-24 19:45 | NUR ---
HAND-OFF: Report given to JAVIER Ziegler.
[2018-07-24 20:00] VITALS: BP 123/79
[2018-07-24] MEDS ORDERED: Phytonadione 10 mg/mL 1ml amp SUBQ SCH ×2 (20:00)
[2018-07-24] MEDS: TPN IV SCH (20:46)
[2018-07-24] MEDS: FAT EMULSION 20% IV SCH (20:46)
[2018-07-24] MEDS: Dyna-Hex 2% Top Sol 2oz TOPIC SCH (20:48)
[2018-07-25] VITALS (7 sets, daily range): BP systolic 117–138; BP diastolic 76–87
[2018-07-25] MEDS: NovoLOG Insulin Flexpen SUBQ SCH ×4 (00:47→18:00)
--- NOTE | 2018-07-25 03:29 | NUR ---
NURSE NOTES: Pt was cleaned, dried, and repositioned, HOB> 30 degree. TPN is running at 78ml/h at [facility]. 2L NC is applied and O2 sat is 98%. Serrano cath. is patent and draining. Currently, pt is sleeping, no distress noted . Will continue to monitor.
[2018-07-25 05:41] LABS: BASOPHILS % (AUTO) 0.6 % (0.0-2.0); EOSINOPHILS % (AUTO) 2.1 % (0.0-3.0); HEMATOCRIT 38.3 % (42.0-52.0); HEMOGLOBIN 13.1 G/DL (14.2-18.0); LYMPHOCYTES % (AUTO) 10.6 % (20.0-45.0); MEAN CORPUSCULAR VOLUME 100 FL (80-99); MONOCYTES % (AUTO) 7.3 % (1.0-10.0); NEUTROPHILS % (AUTO) 79.5 % (45.0-75.0); PLATELET COUNT 537 K/UL (150-450); RED BLOOD COUNT 3.83 M/UL (4.70-6.10); WHITE BLOOD COUNT 14.4 K/UL (4.8-10.8)
[2018-07-25 06:18] LABS: ALANINE AMINOTRANSFERASE 153 U/L (12-78); ALBUMIN 2.1 G/DL (3.4-5.0); ALBUMIN/GLOBULIN RATIO 0.3 (1.0-2.7); ALKALINE PHOSPHATASE 137 U/L (46-116); ANION GAP 9 mmol/L (5-15); ASPARTATE AMINO TRANSFERASE 122 U/L (15-37); BILIRUBIN,TOTAL 0.6 MG/DL (0.2-1.0); BLOOD UREA NITROGEN 18 mg/dL (7-18); CALCIUM 8.9 MG/DL (8.5-10.1); CARBON DIOXIDE 26 MMOL/L (21-32); CHLORIDE 105 MMOL/L (98-107); CREATININE 0.7 MG/DL (0.55-1.30); SODIUM 139 MMOL/L (136-145)
--- NOTE | 2018-07-25 07:30 | NUR ---
HAND-OFF: Report given to Chris Salazar RN. No bleeding noted in the abdominal dressing. JUNE Drain color is dark red and 10ml out put during the overnight cashier. Endorsed plans of care.
--- NOTE | 2018-07-25 07:33 | NUR ---
NURSE NOTES: pt hr 149 no c/o chest pain and no sob hpo egd and peg to day
--- NOTE | 2018-07-25 07:43 | NUR ---
NURSE NOTES: Report received from JAVIER Ziegler. Observed patient in bed. Awake and verbally responsive with confusion. No s/s of pain at this time. Receiving 3L of oxygen via N/C with no distress noted. PICC line intact with TPN is running at prescribed rate. IV site intact and patent. F/C intact and draining well. Bed in lowest position. Call light within reach. Will continue to monitor.
[2018-07-25] MEDS: Pantoprazole Inj IVP SCH ×2 (09:00→21:31)
[2018-07-25] MEDS: Docusate 100mg/10ml Liq NG SCH (09:00)
[2018-07-25] MEDS: Metoprolol 25mg tab NG SCH (09:00)
[2018-07-25] MEDS: Heparin 5000 units/ml inj SUBQ SCH ×2 (09:00→21:33)
--- NOTE | 2018-07-25 10:00 | NUR ---
NURSE NOTES: Informed Dr. Ann that pt. failed video swallow test and has some PO meds. Dr. Ann said to hold all PO meds until further order.
--- NOTE | 2018-07-25 10:56 | NUR ---
TRANSFER TO FLOOR: Patient transferred to [facility] via hospital bed. Report given to JAVIER Giraldo. Belongings and medications given to RN.
[2018-07-25] MEDS ORDERED: Acetaminophen 650 MG SUPP RECTAL PRN ×2 (11:00→15:00)
[2018-07-25] MEDS ORDERED: DiphenhydrAMINE 50mg/ml Inj IVP PRN ×2 (11:00→13:00)
[2018-07-25] MEDS ORDERED: Milk of Magnesia 30ml Ud NG PRN ×2 (11:00→13:00)
[2018-07-25] MEDS ORDERED: Albuterol/Ipratropium 3ml neb HHN PRN ×2 (11:00→13:00)
[2018-07-25] MEDS ORDERED: LORazepam Inj 2mg/ml 1ml IV PRN ×2 (11:00→13:00)
[2018-07-25] MEDS ORDERED: HYDROmorphone 1mg/ml Carpuject IVP PRN ×2 (11:00→13:00)
--- NOTE | 2018-07-25 11:04 | General Progress Note ---
Assessment/Plan Assessment/Plan Anemia of chronic disease due to underlying chronic medical issues, multifactorial, pancreatitis --> Anemia workup has been ordered/reviewed as well --> No evidence of hemolysis is noted, peripheral smear has been reviewed. --> Hgb goal >7. Transfuse prn. --> Epogen or iron at this time is not particularly indicated --> Medications have been reviewed # Thrombocytopenia is likely related to underlying reactive processs from pancreatitis, acute, as well as alcoholic intoxication and myelosuppression --> also patient has a history of hepatitis C from prior admission --> smear has been reviewed --> heparin sq is okay if needed for dvt ppx # Erythrocytosis is likely related to dehydration --> hgb goal >7, no evidence of bleeding currently --> given ivf already # Leukocytosis no e/o annie infection --> could be due to reactive process v cholecystitis --> wbc trend: 22-->18-->16-->14-->18 --> peripheral smear has been reviewed --> ercp repeat in 6-8 weeks, stent was placed # Pancreatitis with alcohol abuse --> recommend etoh cessation --> amylase and lipase prn --> Status post ERCP with sphincterotomy and stent placement # Transaminitis --> likely related to etoh abuse --> in past seen by gi # Alcohol abuse -- recommend cessation The timing of this note does not necessarily reflect the time of the patient was seen. Greatly appreciate consultation! Subjective ROS Limited/Unobtainable: Yes Allergies: Coded Allergies: No Known Allergies (Unverified , 06/01/16) Subjective 07/05: bp was high today and dc was cancelled until tomorow, on librium 07/06: wbc was high though other counts are better, no f/c 07/10: seen by bedside, heart rate increased, appears agitated, wbc 13.9 07/11: to get ercp tomorrow, surgery and gi following 07/12 ercp, sphincterotomy, stent placement surgery done today, currently having tremors and tachy. wbc 15.9, hgb 14, plt 429 07/13: Pt is intubated, seen by bedside,wbc 22, on abx, no acute distress 07/14: awake and comfortable, still intubated on vent, labs noted hb trending down, wbc 18, hgb 8. 07/16: seen by bedside, awake, comfortable, wbc 14, hgb 9, plt 613 07/17: awake, comfortable, status post ERCP with sphincterotomy wbc 21, hgb 10, plt 689. 07/18; seen by bedside, awake comfortable, on venturi mask, wbc 23, plt 754. 07/19: seen by bedside, awake and comfortable, no events, wbc 21 07/20: now out of the icu, doing better, wbc improved, remains on abx as per ID 07/22: Pt is awake, comfortable, wbc 16, lt 632, on abx 07/23 Pt is awake, comfortable, wbc 15, plt 574, on abx, CXR revelals, Increasing opacities of the right lung and Slightly increasing right pleural effusion 07/24: ng has been removed, seen by other consultants, hgb has improved, no bleeding 07/25: seen by bedside, awake, comfortable, on nasal canula, failed video swallow test and has some PO meds, wbc trending down. Objective Last 24 Hour Vital Signs Date Time Temp Pulse Resp B/P (MAP) Pulse Ox O2 Delivery O2 Flow Rate FiO2 07/25/18 09:00 113 134/87 07/25/18 09:00 113 134/87 07/25/18 08:00 116 07/25/18 08:00 99.1 113 25 134/87 (103) 96 07/25/18 08:00 Nasal Cannula 3.0 07/25/18 04:00 98.6 110 22 134/83 (100) 98 07/25/18 04:00 Nasal Cannula 3.0 07/25/18 03:21 118 07/25/18 00:00 111 07/25/18 00:00 98.4 112 20 134/85 (101) 98 07/25/18 00:00 Nasal Cannula 2.0 07/24/18 22:30 95 Nasal Cannula 3.0 32 07/24/18 22:30 Nasal Cannula 3.0 32 07/24/18 20:00 Nasal Cannula 2.0 Nasal Cannula 3.0 07/24/18 20:00 99.0 108 24 123/79 (94) 95 07/24/18 19:35 107 07/24/18 16:00 Nasal Cannula 3.0 Nasal Cannula 3.0 07/24/18 16:00 98.2 106 18 132/86 (101) 95 07/24/18 16:00 107 07/24/18 12:00 98.6 102 18 137/86 (103) 97 07/24/18 12:00 Nasal Cannula 3.0 Nasal Cannula 3.0 07/24/18 12:00 103 Intake and Output 07/24/18 07/25/18 19:00 07:00 Intake Total 78 ml 1093 ml Output Total 975 ml 1560 ml Balance -897 ml -467 ml IV Total 78 ml 1093 ml Output Urine Total 950 ml 1550 ml Drainage Total 25 ml 10 ml Laboratory Tests 07/24/18 12:55: Vancomycin Level Trough 15.7H 07/25/18 04:00: White Blood Count 14.4H, Red Blood Count 3.83L, Hemoglobin 13.1L, Hematocrit 38.3L, Mean Corpuscular Volume 100H, Mean Corpuscular Hemoglobin 34.2H, Mean Corpuscular Hemoglobin Concent 34.2, Red Cell Distribution Width 13.0, Platelet Count 537H, Mean Platelet Volume 6.1L, Neutrophils (%) (Auto) 79.5H, Lymphocytes (%) (Auto) 10.6L, Monocytes (%) (Auto) 7.3, Eosinophils (%) (Auto) 2.1, Basophils (%) (Auto) 0.6, Sodium Level 139, Potassium Level 4.0, Chloride Level 105, Carbon Dioxide Level 26, Anion Gap 9, Blood Urea Nitrogen 18, Creatinine 0.7, Estimat Glomerular Filtration Rate > 60, Glucose Level 118H, Calcium Level 8.9, Total Bilirubin 0.6, Aspartate Amino Transf (AST/SGOT) 122H, Alanine Aminotransferase (ALT/SGPT) 153H, Alkaline Phosphatase 137H, Total Protein 8.6H, Albumin 2.1L, Globulin 6.5, Albumin/Globulin Ratio 0.3L, Lipase 1233H Height (Feet): 5 Height (Inches): 9.00 Weight (Pounds): 160 Objective Physical Exam General Appearance: A+O x3, NAD, ++ asterixis HEENT: normocephalic, atraumatic Neck: non-tender, normal alignment Respiratory/Chest: chest wall non-tender, lungs clear Cardiovascular/Chest: normal peripheral pulses, normal rate Abdomen: normal bowel sounds, non tender Extremities: normal range of motion Guy Salazar MD Jul 25, 2018 11:04
--- NOTE | 2018-07-25 11:05 | NUR ---
NURSE NOTES: Received report from Perla HERRERA. Patient is alert and oriented x1 on arrival. TPN running through AVI PICC per order. Serrano in place. SCD's on. VS assessed. Belongings checked. Dr. Puga saw the patient at the bedside and requests for the patient to go to telemetry. Will transfer as ordered.
--- NOTE | 2018-07-25 11:13 | NUR ---
ST NOTE: VIDEOSWALLOW STUDY COMPLETED VIDEOSWALLOW STUDY FULL REPORT WILL FOLLOW UNDER ST NOTE IN CARE ACTIVITY PT ALERT, FOLLOWS DIRECTIONS INCONSISTENTLY, PT WITH NC(2L), PT'S HEAD TENDED TO TILT TO L-SIDED. GIVEN PO TRIALS: THIN(TSPX2) ONLY. PT PRESENTS WITH SIGNIFICANT(SEVERE) OROPHARYNGEAL DYSPHAGIA CHARACTERIZED BY INCREASED ORAL TRANSIT TIME AND OROPHARYNGEAL TRANSIT TIME DUE TO SENSORIMOTOR DEFICITS. TRACE TO SIGNIFICANT SILENT AND AUDIBLE ASPIRATION(ENTERED THE AIRWAY, BELOW THE VOCAL FOLDS, NOT EJECTED DESPITE EFFORT OR NO EFFORT) WITH THIN DUE TO DELAYED SWALLOW, REDUCED HYO-LARYNGEAL ELEVATION/EXCURSION AND REDUCED LARYNGEAL VESTIBULE CLOSURE. NO FURTHER PO WAS GIVEN DUE TO PT IS AT HIGH RISK FOR OTHER CONSISTENCIES, DEEP OROPHARYNGEAL SUCTION WAS PERFORMED AT THE END OF THE VIDEOSWALLOW. ATTEMPTED HEAD TURN TO L AND CHIN DOWN, NO SIGNIFICANT DIFFERENCES WAS NOTED TO REDUCED ASPIRATION RISK. PT IS NOT SAFE FOR PO INTAKE AT THIS TIME. SUSPECTED UNUSUAL FILLING WAS NOTED IN THE LOWER PART OF PHARYNX(AROUND C5 TO C6). CONSULTED RADIOLOGIST, DR. GAONA, TO CONFIRM. PLEASE SEE FULL REPORT FROM RADIOLOGIST. PER PT, ALSO NOTICED THAT HAVING SWALLOWING DIFFICULTY. RECOMMENDATIONS: 1. STRICT NPO 2. CONTINUE TPN TO MEET NUTRITION AND HYDRATION NEEDS. 3. CONSIDER ENT CONSULT 4. LONG-TERM NONORAL FEEDING MEANS SHOULD BE ALSO CONSIDERED TO MEET NUTRITION AND HYDRATION NEEDS. D/W , DR. FOOTE AND DR. GODWIN AND THE STAFF
[2018-07-25] MEDS ORDERED: Metoprolol 5mg/5ml Inj IVP SCH (11:15)
--- NOTE | 2018-07-25 11:30 | NUR ---
NURSE NOTES: Received patient via gurney, report given by JAVIER Craft. Pt is resting comfortably in semi-fowlers position. No signs and symptoms of acute distress at this time. Respirations are even and unlabored on 4 liter Nasal cannula.TPN is running at prescribed dose. Bed is at lowest position, brakes engaged, two side rails up. Call light and bed side table within reach. Pt is in stable condition at this time; will continue to monitor and follow plan of care.
--- NOTE | 2018-07-25 11:41 | NUR ---
HAND-OFF: Report given to Chris HERRERA in telemetry. Patient transferred at 1130.
--- NOTE | 2018-07-25 11:52 | General Progress Note ---
Assessment/Plan Assessment/Plan #Sepsis #Acute purulent gangrenous cholecystitis. #klebsiella cholecystitis #acute Hypoxic respiratory failure #Acute Metabolic Encephalopathy - due to alcohol withdrawal and sepsis - meropenem, Diflucan - can stop vanco per ID - bcx x 2 ngtd - s/p ercp 07/12 - gen surg following s/p lap jocelyn converted to open jocelyn 07/12 - extubated on 07/16/18 - off o2 ncl - pulm following appreciated - pain control - appreciate surg recs - tpn -NG tube removed -Advance diet -PT ordered #Acute Blood Loss Anemia - due to recent surgery - no overt bleeding noted currently - hgb 6.8 07/15, transfused 2U, 9.7 (07/16) - stable #Pleural Effusions - b/l - per mrcp - stable - pulm consult appreciated #Alcohol Pancreatitis #Intractable abdominal pain #intractable nausea/vomiting #Transaminitis #Alcohol Hepatitis #Alcohol withdrawals #Fatty Liver Disease #Hepatitis C - LFTs 446/532 - Lipase 687 - due to alcohol abuse - INR 1.0 - discriminant function, 4.5 , no need for steroids - US abd completed and reviewed, showing fatty liver disease. GS present, no obstruction noted - ppi - PRN antiemetics, zofran prn - Banana bag - close lab monitoring - IVF - monitor carefully for withdrawals - tube feeds held due to worsening pancreatitis - TPN - Per GI, will need ERCP in 6-8 weeks for stent removal #Failure to thrive - due to alcohol withdrawals and the above - alcoholic pancreatitis - fluids #Alcohol Abuse - educated on cessation for 15 mins - patient states he understands and will try to quit - RN notified to monitor carefully with withdrawals - prn ativan - ciwa #Uncontrolled HTN - improved - all oral BP meds held - start metoprolol IV q6h -transfer to telemetry unit #Tobacco abuse - smokes 1ppd - educated on smoking cessation for over 15 mins, states he understands the risks of smoking and will try to quit #Dysphagia - seen by [facility]SP[facility] STUFFER - strict NPO recommended at this time diet: continue TPN Subjective Date patient seen: Jul 25, 2018 Time patient seen: 11:43 ROS Limited/Unobtainable: Yes Allergies: Coded Allergies: No Known Allergies (Unverified , 12/14/16) Subjective Medicine follow up for multiple medical problems including acute gangrenous cholecystitis, acute hypoxic respiratory failure, acute encephalopathy Objective Last 24 Hour Vital Signs Date Time Temp Pulse Resp B/P (MAP) Pulse Ox O2 Delivery O2 Flow Rate FiO2 07/25/18 09:00 113 134/87 07/25/18 09:00 113 134/87 07/25/18 08:00 116 07/25/18 08:00 99.1 113 25 134/87 (103) 96 07/25/18 08:00 Nasal Cannula 3.0 07/25/18 04:00 98.6 110 22 134/83 (100) 98 07/25/18 04:00 Nasal Cannula 3.0 07/25/18 03:21 118 07/25/18 00:00 111 07/25/18 00:00 98.4 112 20 134/85 (101) 98 07/25/18 00:00 Nasal Cannula 2.0 07/24/18 22:30 95 Nasal Cannula 3.0 32 07/24/18 22:30 Nasal Cannula 3.0 32 07/24/18 20:00 Nasal Cannula 2.0 Nasal Cannula 3.0 07/24/18 20:00 99.0 108 24 123/79 (94) 95 07/24/18 19:35 107 07/24/18 16:00 Nasal Cannula 3.0 Nasal Cannula 3.0 07/24/18 16:00 98.2 106 18 132/86 (101) 95 07/24/18 16:00 107 07/24/18 12:00 98.6 102 18 137/86 (103) 97 07/24/18 12:00 Nasal Cannula 3.0 Nasal Cannula 3.0 07/24/18 12:00 103 Intake and Output 07/24/18 07/25/18 19:00 07:00 Intake Total 78 ml 1093 ml Output Total 975 ml 1560 ml Balance -897 ml -467 ml IV Total 78 ml 1093 ml Output Urine Total 950 ml 1550 ml Drainage Total 25 ml 10 ml Laboratory Tests 07/24/18 12:55: Vancomycin Level Trough 15.7H 07/25/18 04:00: White Blood Count 14.4H, Red Blood Count 3.83L, Hemoglobin 13.1L, Hematocrit 38.3L, Mean Corpuscular Volume 100H, Mean Corpuscular Hemoglobin 34.2H, Mean Corpuscular Hemoglobin Concent 34.2, Red Cell Distribution Width 13.0, Platelet Count 537H, Mean Platelet Volume 6.1L, Neutrophils (%) (Auto) 79.5H, Lymphocytes (%) (Auto) 10.6L, Monocytes (%) (Auto) 7.3, Eosinophils (%) (Auto) 2.1, Basophils (%) (Auto) 0.6, Sodium Level 139, Potassium Level 4.0, Chloride Level 105, Carbon Dioxide Level 26, Anion Gap 9, Blood Urea Nitrogen 18, Creatinine 0.7, Estimat Glomerular Filtration Rate > 60, Glucose Level 118H, Calcium Level 8.9, Total Bilirubin 0.6, Aspartate Amino Transf (AST/SGOT) 122H, Alanine Aminotransferase (ALT/SGPT) 153H, Alkaline Phosphatase 137H, Total Protein 8.6H, Albumin 2.1L, Globulin 6.5, Albumin/Globulin Ratio 0.3L, Lipase 1233H Height (Feet): 5 Height (Inches): 9.00 Weight (Pounds): 160 General Appearance: lethargic Cardiovascular: normal peripheral pulses, tachycardia Respiratory/Chest: lungs clear, normal breath sounds Abdomen: normal bowel sounds, non tender Tomás Cruz MD Jul 25, 2018 11:51
[2018-07-25] MEDS ORDERED: NovoLOG Insulin Flexpen SUBQ SCH (12:00)
[2018-07-25] MEDS: Metoprolol 5mg/5ml Inj IVP SCH ×3 (14:14→21:30)
--- NOTE | 2018-07-25 14:29 | General Progress Note ---
Progress Note Progress Note Doing well. labs improving did not pass swallow study as he aspirates. will need swallow therapy as he improves NPO for now Consider G tube placement to start tube feeds. thank you [place] Antonio Jul 25, 2018 14:29
--- NOTE | 2018-07-25 14:58 | GI Progress Note ---
Assessment/Plan Problems: (1) Abnormal LFTs ICD Codes: R79.89 - Other specified abnormal findings of blood chemistry SNOMED: 437510808 (2) Cholecystitis, acute ICD Codes: K81.0 - Acute cholecystitis SNOMED: 92140979 (3) Hepatitis C ICD Codes: B19.20 - Unspecified viral hepatitis C without hepatic coma SNOMED: 62776779 (4) Fatty liver ICD Codes: K76.0 - Fatty (change of) liver, not elsewhere classified SNOMED: 216725572 (5) Alcoholic pancreatitis ICD Codes: K85.20 - Alcohol induced acute pancreatitis without necrosis or infection SNOMED: 235052440 (6) Pancreatitis, acute ICD Codes: K85.90 - Acute pancreatitis without necrosis or infection, unspecified SNOMED: 885506922 Status: stable Status Narrative Discussed with Dr. Yip. Assessment/Plan SUMMARY OF FINDINGS: 1. 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 2. Status post ERCP with sphincterotomy, balloon assistance sludge and some pus extraction from the common bile duct and then stent placement. s/p open jocelyn, now in ICU with pancreatitis hepatitis C positive Pancreatitis failed CLD trial failed video swallow RECOMMENDATIONS: PEG scheduled for tomorrow. - NPO @ [place]. - hold all blood thinners tonight. prn transfusions Trend lipase fu labs The patient will need repeat ERCP in 6 to 8 weeks for stent removal. outpatient Hep C tx The patient was seen and examined at bedside and all new and available data was reviewed in the patients chart. I agree with the above findings, impression and plan. (Patient seen earlier today. Signature stamp does not reflect patient encounter time.). - Toñito Yip MD Subjective Subjective limited Objective Last 24 Hour Vital Signs Date Time Temp Pulse Resp B/P (MAP) Pulse Ox O2 Delivery O2 Flow Rate FiO2 07/25/18 14:14 116 135/85 07/25/18 12:01 98.8 116 19 135/85 (102) 95 07/25/18 12:00 Nasal Cannula 3.0 07/25/18 09:41 96 Nasal Cannula 3.0 32 07/25/18 09:41 Nasal Cannula 3.0 32 07/25/18 09:00 113 134/87 07/25/18 09:00 113 134/87 07/25/18 08:00 116 07/25/18 08:00 99.1 113 25 134/87 (103) 96 07/25/18 08:00 Nasal Cannula 3.0 07/25/18 04:00 98.6 110 22 134/83 (100) 98 07/25/18 04:00 Nasal Cannula 3.0 07/25/18 03:21 118 07/25/18 00:00 111 07/25/18 00:00 98.4 112 20 134/85 (101) 98 07/25/18 00:00 Nasal Cannula 2.0 07/24/18 22:30 95 Nasal Cannula 3.0 32 07/24/18 22:30 Nasal Cannula 3.0 32 07/24/18 20:00 Nasal Cannula 2.0 Nasal Cannula 3.0 07/24/18 20:00 99.0 108 24 123/79 (94) 95 07/24/18 19:35 107 07/24/18 16:00 Nasal Cannula 3.0 Nasal Cannula 3.0 07/24/18 16:00 98.2 106 18 132/86 (101) 95 07/24/18 16:00 107 Intake and Output 07/24/18 07/25/18 19:00 07:00 Intake Total 78 ml 1093 ml Output Total 975 ml 1560 ml Balance -897 ml -467 ml IV Total 78 ml 1093 ml Output Urine Total 950 ml 1550 ml Drainage Total 25 ml 10 ml Laboratory Tests Test 07/25/18 04:00 White Blood Count 14.4 K/UL (4.8-10.8) H Red Blood Count 3.83 M/UL (4.70-6.10) L Hemoglobin 13.1 G/DL (14.2-18.0) L Hematocrit 38.3 % (42.0-52.0) L Mean Corpuscular Volume 100 FL (80-99) H Mean Corpuscular Hemoglobin 34.2 PG (27.0-31.0) H Mean Corpuscular Hemoglobin Concent 34.2 G/DL (32.0-36.0) Red Cell Distribution Width 13.0 % (11.6-14.8) Platelet Count 537 K/UL (150-450) H Mean Platelet Volume 6.1 FL (6.5-10.1) L Neutrophils (%) (Auto) 79.5 % (45.0-75.0) H Lymphocytes (%) (Auto) 10.6 % (20.0-45.0) L Monocytes (%) (Auto) 7.3 % (1.0-10.0) Eosinophils (%) (Auto) 2.1 % (0.0-3.0) Basophils (%) (Auto) 0.6 % (0.0-2.0) Sodium Level 139 MMOL/L (136-145) Potassium Level 4.0 MMOL/L (3.5-5.1) Chloride Level 105 MMOL/L (98-107) Carbon Dioxide Level 26 MMOL/L (21-32) Anion Gap 9 mmol/L (5-15) Blood Urea Nitrogen 18 mg/dL (7-18) Creatinine 0.7 MG/DL (0.55-1.30) Estimat Glomerular Filtration Rate > 60 mL/min (>60) Glucose Level 118 MG/DL (74-106) H Calcium Level 8.9 MG/DL (8.5-10.1) Total Bilirubin 0.6 MG/DL (0.2-1.0) Aspartate Amino Transf (AST/SGOT) 122 U/L (15-37) H Alanine Aminotransferase (ALT/SGPT) 153 U/L (12-78) H Alkaline Phosphatase 137 U/L (46-116) H Total Protein 8.6 G/DL (6.4-8.2) H Albumin 2.1 G/DL (3.4-5.0) L Globulin 6.5 g/dL Albumin/Globulin Ratio 0.3 (1.0-2.7) L Lipase 1233 U/L (73-393) H Height (Feet): 5 Height (Inches): 9.00 Weight (Pounds): 160 General Appearance: no apparent distress, thin Cardiovascular: normal rate Respiratory/Chest: normal breath sounds, no respiratory distress Abdominal Exam: normal bowel sounds, non tender, soft Extremities: non-tender Sonja Neely NP Jul 25, 2018 14:58
[2018-07-25] MEDS ORDERED: NS 275ml ONE (15:19)
--- NOTE | 2018-07-25 17:00 | NUR ---
NURSE NOTES: Spoke with the pharmacist regarding the next dose of metoprolol which has to be administer within 6 hours (ordered put at 1315, and medication administered around 1415), Since the vital sign was stable we will administer the next dose at 1200 midnight.
[2018-07-25] MEDS ORDERED: Docusate 100mg/10ml Liq NG SCH (18:00)
--- NOTE | 2018-07-25 18:41 | Pulmonology Progress Note ---
Assessment/Plan Problems: (1) Cholecystitis, acute (2) Alcoholic pancreatitis (3) Pancreatitis, acute (4) Alcohol abuse (5) Abnormal LFTs (6) Gangrenous cholecystitis (7) Respiratory disorder with ventilator dependence Assessment & Plan: Extubated and TTF (8) Blood loss anemia (9) Pneumonia (10) Hepatitis C (11) Fatty liver Assessment/Plan Optimize pulmonary hygiene/mobilize as tolerated Titrate down FiO2 to keep SaO2 > 90% PRN HHN's Abx (Jair/Vanco) + flucon per ID CXR pending still F/U GI and surgery recs --> plan for PEG tommorrow TPN, trend Amylase/Lipase, repeat ERCP in the future Montor volumes and renal function DVT Px: Hep SQ FC Subjective Allergies: Coded Allergies: No Known Allergies (Unverified , 06/01/16) Subjective AFVSS O2 needs inc today but stable overall On TPN, failed VSS, plan for PEG tomorrow Awake and alert No cough, no SOB, no F/C Pain better Objective Last 24 Hour Vital Signs Date Time Temp Pulse Resp B/P (MAP) Pulse Ox O2 Delivery O2 Flow Rate FiO2 07/25/18 18:00 98 117/76 07/25/18 16:00 98 07/25/18 16:00 97.9 82 20 117/76 (90) 97 07/25/18 16:00 Nasal Cannula 3.0 07/25/18 14:14 116 135/85 07/25/18 12:01 98.8 116 19 135/85 (102) 95 07/25/18 12:00 115 07/25/18 12:00 Nasal Cannula 3.0 07/25/18 09:41 96 Nasal Cannula 3.0 32 07/25/18 09:41 Nasal Cannula 3.0 32 07/25/18 09:00 113 134/87 07/25/18 09:00 113 134/87 07/25/18 08:00 116 07/25/18 08:00 99.1 113 25 134/87 (103) 96 07/25/18 08:00 Nasal Cannula 3.0 07/25/18 04:00 98.6 110 22 134/83 (100) 98 07/25/18 04:00 Nasal Cannula 3.0 07/25/18 03:21 118 07/25/18 00:00 111 2/6/19 00:00 98.4 112 20 134/85 (101) 98 07/25/18 00:00 Nasal Cannula 2.0 07/24/18 22:30 95 Nasal Cannula 3.0 32 07/24/18 22:30 Nasal Cannula 3.0 32 07/24/18 20:00 Nasal Cannula 2.0 Nasal Cannula 3.0 07/24/18 20:00 99.0 108 24 123/79 (94) 95 07/24/18 19:35 107 Intake and Output 07/24/18 07/25/18 18:59 06:59 Intake Total 993 ml Output Total 975 ml 1560 ml Balance -975 ml -567 ml IV Total 993 ml Output Urine Total 950 ml 1550 ml Drainage Total 25 ml 10 ml General Appearance: no acute distress, cachetic HEENT: normocephalic, atraumatic, anicteric, mucous membranes moist Respiratory/Chest: chest wall non-tender, lungs clear, normal breath sounds, no respiratory distress, no accessory muscle use Cardiovascular: normal peripheral pulses, normal rate, regular rhythm Abdomen: normal bowel sounds, other - wound dressed Extremities: no cyanosis, no clubbing, no edema Laboratory Tests 07/25/18 04:00: White Blood Count 14.4H, Red Blood Count 3.83L, Hemoglobin 13.1L, Hematocrit 38.3L, Mean Corpuscular Volume 100H, Mean Corpuscular Hemoglobin 34.2H, Mean Corpuscular Hemoglobin Concent 34.2, Red Cell Distribution Width 13.0, Platelet Count 537H, Mean Platelet Volume 6.1L, Neutrophils (%) (Auto) 79.5H, Lymphocytes (%) (Auto) 10.6L, Monocytes (%) (Auto) 7.3, Eosinophils (%) (Auto) 2.1, Basophils (%) (Auto) 0.6, Sodium Level 139, Potassium Level 4.0, Chloride Level 105, Carbon Dioxide Level 26, Anion Gap 9, Blood Urea Nitrogen 18, Creatinine 0.7, Estimat Glomerular Filtration Rate > 60, Glucose Level 118H, Calcium Level 8.9, Total Bilirubin 0.6, Aspartate Amino Transf (AST/SGOT) 122H, Alanine Aminotransferase (ALT/SGPT) 153H, Alkaline Phosphatase 137H, Total Protein 8.6H, Albumin 2.1L, Globulin 6.5, Albumin/Globulin Ratio 0.3L, Lipase 1233H Current Medications Medications (Trade) Dose Ordered Sig/Mukesh Route PRN Reason Start Time Stop Time Status Last Admin Dose Admin Acetaminophen (Tylenol) 650 mg Q4H PRN RECTAL Prn for Temp >100.5 07/25/18 15:00 08/14/18 18:59 Al Hydroxide/Mg Hydroxide (Mylanta) 15 ml Q6H PRN NG DYSPEPSIA 07/25/18 13:00 08/11/18 12:59 Albuterol/ Ipratropium (Albuterol/ Ipratropium) 3 ml Q4H PRN HHN Shortness of Breath 07/25/18 13:00 07/28/18 12:59 Chlorhexidine Gluconate (Estrella-Hex 2%) 1 applic DAILY@2000 TOPIC 07/25/18 20:00 08/15/18 19:59 Dextrose (Dextrose 50%) 25 ml Q30M PRN IV Hypoglycemia 07/25/18 12:30 08/17/18 00:00 Dextrose (Dextrose 50%) 50 ml Q30M PRN IV hypoglycemia 07/25/18 12:30 08/17/18 00:00 Diphenhydramine HCl (Benadryl) 12.5 mg Q6H PRN IVP Itching/Pruritis 07/25/18 13:00 08/11/18 12:59 Fat Emulsion Intravenous 192 ml/Amino Acids/ Electrolytes/ Dextrose 1,872 ml @ 78 mls/hr Q24H IV 07/19/18 20:00 07/25/18 19:59 07/24/18 20:46 Fat Emulsion Intravenous 192 ml/Amino Acids/ Electrolytes/ Dextrose 1,872 ml @ 78 mls/hr Q24H IV 07/25/18 20:00 08/16/18 19:59 Fluconazole/ Sodium Chloride 200 ml @ 200 mls/hr Q24H IV 07/25/18 16:30 07/30/18 16:29 07/25/18 17:08 Heparin Sodium (Porcine) (Heparin 5000 units/ml) 5,000 units Q12HR SUBQ 07/25/18 21:00 08/02/18 08:59 Hydromorphone HCl (Dilaudid) 1 mg Q3H PRN IVP pain score 4-6 07/25/18 13:00 07/26/18 12:59 Hydromorphone HCl (Dilaudid) 2 mg Q3H PRN IVP pain score 7-10 07/25/18 13:00 07/26/18 12:59 Insulin Aspart (NovoLOG) No Dose Q6HR SUBQ 07/25/18 13:00 08/17/18 12:59 07/25/18 13:01 Lorazepam (Ativan 2mg/ml 1ml) 1 mg Q1H PRN IV For Anxiety 07/25/18 13:00 07/26/18 18:59 Magnesium Hydroxide (Mom) 30 ml BIDPRN PRN NG Constipation 07/25/18 13:00 08/24/18 12:59 Meropenem 1 gm/ Sodium Chloride 100 ml @ 200 mls/hr Q8HR IVPB 07/25/18 14:00 07/28/18 15:59 07/25/18 14:36 Metoprolol Tartrate (Lopressor) 5 mg Q6HR IVP 07/25/18 13:00 08/24/18 12:59 07/25/18 14:14 Nicotine (Nicoderm) 1 patch Q24H TDERMAL 07/25/18 18:00 08/08/18 17:59 Ondansetron HCl (Zofran) 4 mg Q6H PRN IVP Nausea & Vomiting 07/25/18 13:00 08/01/18 12:59 Pantoprazole (Protonix) 40 mg EVERY 12 HOURS IVP 07/25/18 21:00 08/09/18 20:59 Phytonadione (Vitamin K) 10 mg QWEEK SUBQ 07/31/18 20:00 08/23/18 19:59 Trenton Ladd MD Jul 25, 2018 18:41
[2018-07-25] MEDS ORDERED: TPN IV SCH ×4 (20:00)
[2018-07-25] MEDS ORDERED: FAT EMULSION 20% IV SCH ×4 (20:00)
[2018-07-25] MEDS ORDERED: Dyna-Hex 2% Top Sol 2oz TOPIC SCH (20:00)
--- NOTE | 2018-07-25 20:05 | NUR ---
HAND-OFF: Report given to JAVIER Ziegler.
--- NOTE | 2018-07-25 20:10 | NUR ---
NURSE NOTES: patient received. patient in no acute distress at this time4. patient appears to be in no pain at this time. patient awake alert and [id number] x1. patient IV intact and asymptomatic. patient TPN running at this time. patient heart rate very tachy. dr and charge nurse aware. mediation has been given. see emar. bed in lowest position and locked. call light within reach. bed alarm on will continue to monitor.
[2018-07-25] MEDS ORDERED: Heparin 5000 units/ml inj SUBQ SCH (21:00)
[2018-07-25] MEDS ORDERED: Pantoprazole Inj IVP SCH (21:00)
[2018-07-25] MEDS: Dyna-Hex 2% Top Sol 2oz TOPIC SCH (21:29)
[2018-07-26] VITALS (7 sets, daily range): BP systolic 123–141; BP diastolic 79–102
[2018-07-26] MEDS: NovoLOG Insulin Flexpen SUBQ SCH ×4 (00:27→16:50)
[2018-07-26] MEDS: Metoprolol 5mg/5ml Inj IVP SCH ×4 (04:10→21:24)
--- NOTE | 2018-07-26 07:18 | NUR ---
HAND-OFF: Report given to nataliia martinez. endorsed to him to change the picc line dressing.
--- NOTE | 2018-07-26 08:03 | NUR ---
NURSE NOTES: Pt in bed in low position with HOB in fowlers, pt denies pain, pt is AOx1 baseline for the pt per night nurse, pt has been tachy per night nurse but as of right now the pt is in the low 100's, pt is bedbound, call light at bedside, G-tube placement consent signed, will hold heparin, no s/s of distress or sob noted. L/UA picc 2 lumen patent and intact. Pt on 2L NC
[2018-07-26 08:29] LABS: INR 1.1 (0.9-1.1)
[2018-07-26 08:30] LABS: BASOPHILS % (AUTO) 1.1 % (0.0-2.0); EOSINOPHILS % (AUTO) 2.3 % (0.0-3.0); HEMATOCRIT 39.1 % (42.0-52.0); HEMOGLOBIN 13.4 G/DL (14.2-18.0); LYMPHOCYTES % (AUTO) 6.7 % (20.0-45.0); MEAN CORPUSCULAR VOLUME 101 FL (80-99); MONOCYTES % (AUTO) 8.2 % (1.0-10.0); NEUTROPHILS % (AUTO) 81.6 % (45.0-75.0); PLATELET COUNT 569 K/UL (150-450); RED BLOOD COUNT 3.89 M/UL (4.70-6.10); RED CELL DISTRIBUTION WIDTH 13.5 % (11.6-14.8); WHITE BLOOD COUNT 15.5 K/UL (4.8-10.8)
[2018-07-26 08:38] LABS: ANION GAP 9 mmol/L (5-15); BLOOD UREA NITROGEN 19 mg/dL (7-18); CALCIUM 8.8 MG/DL (8.5-10.1); CARBON DIOXIDE 27 MMOL/L (21-32); CHLORIDE 104 MMOL/L (98-107); CREATININE 0.8 MG/DL (0.55-1.30); POTASSIUM 4.1 MMOL/L (3.5-5.1); SODIUM 139 MMOL/L (136-145)
[2018-07-26] MEDS ORDERED: Metoprolol 25mg tab NG SCH (09:00)
[2018-07-26] MEDS: Heparin 5000 units/ml inj SUBQ SCH ×2 (09:53→21:00)
[2018-07-26] MEDS: Pantoprazole Inj IVP SCH ×2 (09:54→21:18)
[2018-07-26] MEDS ORDERED: FAT EMULSION 20% IV SCH ×2 (10:01→21:00)
[2018-07-26] MEDS ORDERED: TPN IV SCH ×2 (10:01→21:00)
--- NOTE | 2018-07-26 11:04 | Pulmonology Progress Note ---
Assessment/Plan Problems: (1) Cholecystitis, acute (2) Alcoholic pancreatitis (3) Pancreatitis, acute (4) Alcohol abuse (5) Abnormal LFTs (6) Gangrenous cholecystitis (7) Respiratory disorder with ventilator dependence Assessment & Plan: Extubated and TTF (8) Blood loss anemia (9) Pneumonia (10) Hepatitis C (11) Fatty liver Assessment/Plan Optimize pulmonary hygiene/mobilize as tolerated Titrate down FiO2 to keep SaO2 > 90% PRN HHN's Abx (Jair) + flucon per I F/U GI and surgery recs --> plan for PEG today TPN, trend Amylase/Lipase, repeat ERCP in the future Montor volumes and renal function DVT Px: Hep SQ FC Subjective Allergies: Coded Allergies: No Known Allergies (Unverified , 06/01/16) Subjective ST ON O2 needs stable On TPN, awaiting PEG MS waxes and wanes No cough, no SOB, no F/C Objective Last 24 Hour Vital Signs Date Time Temp Pulse Resp B/P (MAP) Pulse Ox O2 Delivery O2 Flow Rate FiO2 07/26/18 09:53 102 130/82 07/26/18 08:25 Nasal Cannula 3.0 07/26/18 08:00 97.8 102 20 130/82 (98) 95 07/26/18 04:10 147 123/81 07/26/18 04:00 157 07/26/18 04:00 Nasal Cannula 3.0 07/26/18 04:00 97.4 132 19 127/102 (110) 97 07/26/18 00:00 147 07/26/18 00:00 Nasal Cannula 3.0 07/26/18 00:00 97.6 150 18 123/81 (95) 99 07/25/18 21:45 130 07/25/18 21:30 161 138/87 07/25/18 20:00 Nasal Cannula 3.0 07/25/18 20:00 154 07/25/18 20:00 98.5 150 18 138/87 (104) 93 07/25/18 18:00 98 117/76 07/25/18 16:00 98 07/25/18 16:00 97.9 82 20 117/76 (90) 97 07/25/18 16:00 Nasal Cannula 3.0 07/25/18 14:14 116 135/85 07/25/18 12:01 98.8 116 19 135/85 (102) 95 07/25/18 12:00 115 07/25/18 12:00 Nasal Cannula 3.0 Intake and Output 07/25/18 07/26/18 19:00 07:00 Intake Total 234 ml Output Total 2200 ml Balance 234 ml -2200 ml IV Total 234 ml Output Urine Total 2200 ml General Appearance: cachetic HEENT: normocephalic, atraumatic Respiratory/Chest: rhonchi Cardiovascular: normal peripheral pulses, tachycardia Abdomen: normal bowel sounds, soft, non tender, no organomegaly, non distended , other - dressed Extremities: no cyanosis, no clubbing, no edema Laboratory Tests 07/26/18 06:35: White Blood Count 15.5H, Red Blood Count 3.89L, Hemoglobin 13.4L, Hematocrit 39.1L, Mean Corpuscular Volume 101H, Mean Corpuscular Hemoglobin 34.5H, Mean Corpuscular Hemoglobin Concent 34.3, Red Cell Distribution Width 13.5, Platelet Count 569H, Mean Platelet Volume 6.6, Neutrophils (%) (Auto) 81.6H, Lymphocytes (%) (Auto) 6.7L, Monocytes (%) (Auto) 8.2, Eosinophils (%) (Auto) 2.3, Basophils (%) (Auto) 1.1, Prothrombin Time 11.2, Prothromb Time International Ratio 1.1, Activated Partial Thromboplast Time 28, Sodium Level 139, Potassium Level 4.1, Chloride Level 104, Carbon Dioxide Level 27, Anion Gap 9, Blood Urea Nitrogen 19H, Creatinine 0.8, Estimat Glomerular Filtration Rate > 60, Glucose Level 124H, Calcium Level 8.8 Current Medications Medications (Trade) Dose Ordered Sig/Mukesh Route PRN Reason Start Time Stop Time Status Last Admin Dose Admin Acetaminophen (Tylenol) 650 mg Q4H PRN RECTAL Prn for Temp >100.5 07/25/18 15:00 08/14/18 18:59 Al Hydroxide/Mg Hydroxide (Mylanta) 15 ml Q6H PRN NG DYSPEPSIA 07/25/18 13:00 08/11/18 12:59 Albuterol/ Ipratropium (Albuterol/ Ipratropium) 3 ml Q4H PRN HHN Shortness of Breath 07/25/18 13:00 07/28/18 12:59 Chlorhexidine Gluconate (Estrella-Hex 2%) 1 applic DAILY@2000 TOPIC 07/25/18 20:00 08/15/18 19:59 07/25/18 21:29 Dextrose (Dextrose 50%) 25 ml Q30M PRN IV Hypoglycemia 07/25/18 12:30 08/17/18 00:00 Dextrose (Dextrose 50%) 50 ml Q30M PRN IV hypoglycemia 07/25/18 12:30 08/17/18 00:00 Diphenhydramine HCl (Benadryl) 12.5 mg Q6H PRN IVP Itching/Pruritis 07/25/18 13:00 08/11/18 12:59 Fat Emulsion Intravenous 192 ml/Amino Acids/ Electrolytes/ Dextrose 1,872 ml @ 78 mls/hr Q24H IV 07/26/18 10:01 07/26/18 20:59 Fat Emulsion Intravenous 192 ml/Amino Acids/ Electrolytes/ Dextrose 1,872 ml @ 78 mls/hr Q24H IV 07/26/18 21:00 08/25/18 20:59 Fluconazole/ Sodium Chloride 200 ml @ 200 mls/hr Q24H IV 07/25/18 16:30 07/30/18 16:29 07/25/18 17:08 Heparin Sodium (Porcine) (Heparin 5000 units/ml) 5,000 units Q12HR SUBQ 07/25/18 21:00 08/02/18 08:59 07/25/18 21:33 Hydromorphone HCl (Dilaudid) 1 mg Q3H PRN IVP pain score 4-6 07/25/18 13:00 07/26/18 12:59 Hydromorphone HCl (Dilaudid) 2 mg Q3H PRN IVP pain score 7-10 07/25/18 13:00 07/26/18 12:59 07/26/18 09:54 Insulin Aspart (NovoLOG) No Dose Q6HR SUBQ 07/25/18 13:00 08/17/18 12:59 07/26/18 05:57 Lorazepam (Ativan 2mg/ml 1ml) 1 mg Q1H PRN IV For Anxiety 07/25/18 13:00 07/26/18 18:59 Magnesium Hydroxide (Mom) 30 ml BIDPRN PRN NG Constipation 07/25/18 13:00 08/24/18 12:59 Meropenem 1 gm/ Sodium Chloride 100 ml @ 200 mls/hr Q8HR IVPB 07/25/18 14:00 07/28/18 15:59 07/26/18 05:52 Metoprolol Tartrate (Lopressor) 5 mg Q6H IVP 07/25/18 21:00 08/24/18 20:59 07/26/18 09:53 Nicotine (Nicoderm) 1 patch Q24H TDERMAL 07/25/18 18:00 08/08/18 17:59 07/25/18 19:02 Ondansetron HCl (Zofran) 4 mg Q6H PRN IVP Nausea & Vomiting 07/25/18 13:00 08/01/18 12:59 Pantoprazole (Protonix) 40 mg EVERY 12 HOURS IVP 07/25/18 21:00 08/09/18 20:59 07/26/18 09:54 Phytonadione (Vitamin K) 10 mg QWEEK SUBQ 07/31/18 09:00 08/30/18 08:59 Trenton Ladd MD Jul 26, 2018 11:04
[2018-07-26] MEDS ORDERED: Naloxone 1mg/ml 2ml IVP SCH (12:00)
--- NOTE | 2018-07-26 13:22 | General Progress Note ---
Assessment/Plan Assessment/Plan Anemia of chronic disease due to underlying chronic medical issues, multifactorial, pancreatitis --> Anemia workup has been ordered/reviewed as well --> No evidence of hemolysis is noted, peripheral smear has been reviewed. --> Hgb goal >7. Transfuse prn. --> Epogen or iron at this time is not particularly indicated --> Medications have been reviewed # Thrombocytopenia is likely related to underlying reactive processs from pancreatitis, acute, as well as alcoholic intoxication and myelosuppression --> also patient has a history of hepatitis C from prior admission --> smear has been reviewed --> heparin sq is okay if needed for dvt ppx # Erythrocytosis is likely related to dehydration --> hgb goal >7, no evidence of bleeding currently --> given ivf already # Leukocytosis no e/o annie infection --> could be due to reactive process v cholecystitis --> wbc trend: 22-->18-->16-->14-->18 --> peripheral smear has been reviewed --> ercp repeat in 6-8 weeks, stent was placed # Pancreatitis with alcohol abuse --> recommend etoh cessation --> amylase and lipase prn --> Status post ERCP with sphincterotomy and stent placement # Transaminitis --> likely related to etoh abuse --> in past seen by gi # Alcohol abuse -- recommend cessation The timing of this note does not necessarily reflect the time of the patient was seen. Greatly appreciate consultation! Subjective Constitutional: Denies: no symptoms, chills, diaphoresis, fever, malaise, weakness, other HEENT: Denies: no symptoms, eye pain, blurred vision, tearing, double vision, ear pain, ear discharge, nose pain, nose congestion, throat pain, throat swelling, mouth pain, mouth swelling, other Respiratory: Denies: no symptoms, cough, orthopnea, shortness of breath, SOB with excertion, SOB at rest, sputum, stridor, wheezing, other Gastrointestinal/Abdominal: Denies: no symptoms, abdomen distended, abdominal pain, black stools, tarry stools, blood in stool, constipated, diarrhea, difficulty swallowing, nausea, poor appetite, poor fluid intake, rectal bleeding , vomiting, other Genitourinary: Denies: no symptoms, burning, discharge, frequency, flank pain, hematuria, incontinence, pain, urgency, other Endocrine: Denies: no symptoms, excessive sweating, flushing, intolerance to cold, intolerance to heat, increased hunger, increased thirst, increased urine, unexplained weight gain, unexplained weight loss, other Hematologic/Lymphatic: Denies: no symptoms, anemia, easy bleeding, easy bruising, other Allergies: Coded Allergies: No Known Allergies (Unverified , 06/01/16) Subjective 07/05: bp was high today and dc was cancelled until tomorow, on librium 07/06: wbc was high though other counts are better, no f/c 07/10: seen by bedside, heart rate increased, appears agitated, wbc 13.9 07/11: to get ercp tomorrow, surgery and gi following 07/12 ercp, sphincterotomy, stent placement surgery done today, currently having tremors and tachy. wbc 15.9, hgb 14, plt 429 07/13: Pt is intubated, seen by bedside,wbc 22, on abx, no acute distress 07/14: awake and comfortable, still intubated on vent, labs noted hb trending down, wbc 18, hgb 8. 07/16: seen by bedside, awake, comfortable, wbc 14, hgb 9, plt 613 07/17: awake, comfortable, status post ERCP with sphincterotomy wbc 21, hgb 10, plt 689. 07/18; seen by bedside, awake comfortable, on venturi mask, wbc 23, plt 754. 07/19: seen by bedside, awake and comfortable, no events, wbc 21 07/20: now out of the icu, doing better, wbc improved, remains on abx as per ID 07/22: Pt is awake, comfortable, wbc 16, lt 632, on abx 07/23 Pt is awake, comfortable, wbc 15, plt 574, on abx, CXR revelals, Increasing opacities of the right lung and Slightly increasing right pleural effusion 07/24: ng has been removed, seen by other consultants, hgb has improved, no bleeding 07/25: seen by bedside, awake, comfortable, on nasal canula, failed video swallow test and has some PO meds, wbc trending down. 07/26: awake, comfortable, G-tube placement consent signed Objective Last 24 Hour Vital Signs Date Time Temp Pulse Resp B/P (MAP) Pulse Ox O2 Delivery O2 Flow Rate FiO2 07/26/18 10:24 97.8 07/26/18 09:53 102 130/82 07/26/18 08:25 Nasal Cannula 3.0 07/26/18 08:00 97.8 102 20 130/82 (98) 95 07/26/18 04:10 147 123/81 07/26/18 04:00 157 07/26/18 04:00 Nasal Cannula 3.0 07/26/18 04:00 97.4 132 19 127/102 (110) 97 07/26/18 00:00 147 07/26/18 00:00 Nasal Cannula 3.0 07/26/18 00:00 97.6 150 18 123/81 (95) 99 07/25/18 21:45 130 07/25/18 21:30 161 138/87 07/25/18 20:00 Nasal Cannula 3.0 07/25/18 20:00 154 07/25/18 20:00 98.5 150 18 138/87 (104) 93 07/25/18 18:00 98 117/76 07/25/18 16:00 98 07/25/18 16:00 97.9 82 20 117/76 (90) 97 07/25/18 16:00 Nasal Cannula 3.0 07/25/18 14:14 116 135/85 Intake and Output 07/25/18 07/26/18 19:00 07:00 Intake Total 234 ml Output Total 2200 ml Balance 234 ml -2200 ml IV Total 234 ml Output Urine Total 2200 ml Laboratory Tests 07/26/18 06:35: White Blood Count 15.5H, Red Blood Count 3.89L, Hemoglobin 13.4L, Hematocrit 39.1L, Mean Corpuscular Volume 101H, Mean Corpuscular Hemoglobin 34.5H, Mean Corpuscular Hemoglobin Concent 34.3, Red Cell Distribution Width 13.5, Platelet Count 569H, Mean Platelet Volume 6.6, Neutrophils (%) (Auto) 81.6H, Lymphocytes (%) (Auto) 6.7L, Monocytes (%) (Auto) 8.2, Eosinophils (%) (Auto) 2.3, Basophils (%) (Auto) 1.1, Prothrombin Time 11.2, Prothromb Time International Ratio 1.1, Activated Partial Thromboplast Time 28, Sodium Level 139, Potassium Level 4.1, Chloride Level 104, Carbon Dioxide Level 27, Anion Gap 9, Blood Urea Nitrogen 19H, Creatinine 0.8, Estimat Glomerular Filtration Rate > 60, Glucose Level 124H, Calcium Level 8.8 Height (Feet): 5 Height (Inches): 9.00 Weight (Pounds): 160 Objective Physical Exam General Appearance: A+O x3, NAD, ++ asterixis HEENT: normocephalic, atraumatic Neck: non-tender, normal alignment Respiratory/Chest: chest wall non-tender, lungs clear Cardiovascular/Chest: normal peripheral pulses, normal rate Abdomen: normal bowel sounds, non tender Extremities: normal range of motion Guy Salazar MD Jul 26, 2018 13:22
--- NOTE | 2018-07-26 14:38 | General Progress Note ---
Assessment/Plan Assessment/Plan #Sepsis #Acute purulent gangrenous cholecystitis. #klebsiella cholecystitis #acute Hypoxic respiratory failure #Acute Metabolic Encephalopathy - due to alcohol withdrawal and sepsis - meropenem, Diflucan - can stop vanco per ID - bcx x 2 ngtd - s/p ercp 07/12 - gen surg following s/p lap jocelyn converted to open jocelyn 07/12 - extubated on 07/16/18 - off o2 ncl - pulm following appreciated - pain control - appreciate surg recs - tpn -NG tube removed -Plan for PEG by GI today -PT ordered #Acute Blood Loss Anemia - due to recent surgery - no overt bleeding noted currently - hgb 6.8 07/15, transfused 2U, 9.7 (07/16) - stable #Pleural Effusions - b/l - per mrcp - stable - pulm consult appreciated #Alcohol Pancreatitis #Intractable abdominal pain #intractable nausea/vomiting #Transaminitis #Alcohol Hepatitis #Alcohol withdrawals #Fatty Liver Disease #Hepatitis C - LFTs 446/532 - Lipase 687 - due to alcohol abuse - INR 1.0 - discriminant function, 4.5 , no need for steroids - US abd completed and reviewed, showing fatty liver disease. GS present, no obstruction noted - ppi - PRN antiemetics, zofran prn - Banana bag - close lab monitoring - IVF - monitor carefully for withdrawals - tube feeds held due to worsening pancreatitis - TPN - Per GI, will need ERCP in 6-8 weeks for stent removal #Failure to thrive - due to alcohol withdrawals and the above - alcoholic pancreatitis - fluids #Alcohol Abuse - educated on cessation for 15 mins - patient states he understands and will try to quit - RN notified to monitor carefully with withdrawals - prn ativan - ciwa #Uncontrolled HTN - improved - all oral BP meds held - start metoprolol IV q6h -transfer to telemetry unit #Tobacco abuse - smokes 1ppd - educated on smoking cessation for over 15 mins, states he understands the risks of smoking and will try to quit #Dysphagia -seen by [employer] RECEIVABLE [employer]OCIATE -strict NPO recommended at this time -PEG placement today diet: continue TPN Subjective Date patient seen: Jul 26, 2018 Time patient seen: 11:45 ROS Limited/Unobtainable: Yes Cardiovascular: Denies: chest pain Respiratory: Denies: cough Gastrointestinal/Abdominal: Denies: abdomen distended, abdominal pain Allergies: Coded Allergies: No Known Allergies (Unverified , 06/01/16) Subjective Medicine follow up for multiple medical problems including acute gangrenous cholecystitis, acute hypoxic respiratory failure, acute encephalopathy Patient received Dilaudid IV today and developed pinpoint pupils and bradypnea. Responded well to 1 mg Narcan intravenously. Now back to baseline mentation. Objective Last 24 Hour Vital Signs Date Time Temp Pulse Resp B/P (MAP) Pulse Ox O2 Delivery O2 Flow Rate FiO2 07/26/18 10:24 97.8 07/26/18 09:53 102 130/82 07/26/18 08:25 Nasal Cannula 3.0 07/26/18 08:00 97.8 102 20 130/82 (98) 95 07/26/18 04:10 147 123/81 07/26/18 04:00 157 07/26/18 04:00 Nasal Cannula 3.0 07/26/18 04:00 97.4 132 19 127/102 (110) 97 07/26/18 00:00 147 07/26/18 00:00 Nasal Cannula 3.0 07/26/18 00:00 97.6 150 18 123/81 (95) 99 07/25/18 21:45 130 07/25/18 21:30 161 138/87 07/25/18 20:00 Nasal Cannula 3.0 07/25/18 20:00 154 07/25/18 20:00 98.5 150 18 138/87 (104) 93 07/25/18 18:00 98 117/76 07/25/18 16:00 98 07/25/18 16:00 97.9 82 20 117/76 (90) 97 07/25/18 16:00 Nasal Cannula 3.0 Intake and Output 07/25/18 07/26/18 19:00 07:00 Intake Total 234 ml Output Total 2200 ml Balance 234 ml -2200 ml IV Total 234 ml Output Urine Total 2200 ml Laboratory Tests 07/26/18 06:35: White Blood Count 15.5H, Red Blood Count 3.89L, Hemoglobin 13.4L, Hematocrit 39.1L, Mean Corpuscular Volume 101H, Mean Corpuscular Hemoglobin 34.5H, Mean Corpuscular Hemoglobin Concent 34.3, Red Cell Distribution Width 13.5, Platelet Count 569H, Mean Platelet Volume 6.6, Neutrophils (%) (Auto) 81.6H, Lymphocytes (%) (Auto) 6.7L, Monocytes (%) (Auto) 8.2, Eosinophils (%) (Auto) 2.3, Basophils (%) (Auto) 1.1, Prothrombin Time 11.2, Prothromb Time International Ratio 1.1, Activated Partial Thromboplast Time 28, Sodium Level 139, Potassium Level 4.1, Chloride Level 104, Carbon Dioxide Level 27, Anion Gap 9, Blood Urea Nitrogen 19H, Creatinine 0.8, Estimat Glomerular Filtration Rate > 60, Glucose Level 124H, Calcium Level 8.8 Height (Feet): 5 Height (Inches): 9.00 Weight (Pounds): 160 General Appearance: lethargic Cardiovascular: normal peripheral pulses, normal rate Respiratory/Chest: chest wall non-tender, lungs clear Abdomen: normal bowel sounds, non tender Tomás Cruz MD Jul 26, 2018 14:38
--- NOTE | 2018-07-26 16:13 | NUR ---
RD ASSESSMENT & RECOMMENDATIONS SEE CARE ACTIVITY FOR COMPLETE ASSESSMENT DAILY ESTIMATED NEEDS: Needs based on Pancreatitis, 72.6kg 25-30 kcals/kg 5825-8556 total kcals 1-1.5 g protein/kg 73-109 g total protein 25-30 mL/kg 4714-6277 total fluid mLs NUTRITION DIAGNOSIS: * Altered nutrition-related lab values R/T liver dysfunction, pancreatitis, clinical condition as evidenced by elev LFTs, elev T bili, now wnl, Hep C antibody >11, elev lipase and amylase, low Na (130-> wnl), low K 3.3-> wnl. * Swallowing difficulty R/T dysphagia, respiratory status as evidenced by now extubated, failed VSS, pending PEG placement, currently on TPN. CURRENT DIET:NPO ENTERAL NUTRITION RECOMMENDATIONS: Jevity 1.2 @ 65ml/hr x 24 hrs to provide 1560ml, 1872kcal, 86g prot, 1258ml free water * W/ GI access and when medically appropriate to feed via GI, initiate TF. * Initiate Jevity 1.2 @ 15ml/hr x 6 hrs * Advance 10ml q 4-6 hrs as tolerated to goal rate. * HOB over 30 degrees/ water flush per MD * @ goal provides 23% fat of total kcal PARENTERAL NUTRITION RECOMMENDATIONS: D/AA Rate: 70 IL Rate: 8 Total Rate: 78 Volume: 1872 % Dextrose: 20 % AA: 5.5 Energy (kcals/kg): 1896 Protein (g/kg protein): 92 Nonprotein KCALS: 1526 GIR (mg CHO/kg/min): 3.2 % Fat KCALS: 20 NCP: N Ratio: 104:1 TPN Comment: - Until able to feed via GI, continue D20%, AA 5.5% @70ml/hr + 20% IL @8ml-> all 3:1 - TPN @goal provides 1872 kcal (26 kcal/kg). 92g prot (1.3g/kg) - Monitor BG, lytes, LFT's daily on TPN - IL 20% of total kcal - GIR <5 - NPC >100:1 ADDITIONAL RECOMMENDATIONS: 1) Monitor lytes, LFTs, BGs daily w/ TPN 2) Monitor for PEG placement, ability to feed via GI 3) Calibrated bedscale wt for accurate CBW-> pt w/ added P200 4) Monitor lipase . .
--- NOTE | 2018-07-26 16:18 | Infectious Diseases Prog Note ---
Assessment/Plan Assessment/Plan ASSESSMENT AND PLAN: 1. sepsis, klebsiella cholecystitis, enterobacter pna, leukocytosis, fevers, sirs, fungal uti, fungemia risk - meropenem and diflcuan - day # 7 combination - monitor labs, wbc, temps and chest x-ray - clinically improved, less fevers, more alert, leukocytosis persists 3. Smoking use. 4. Anemia. 5. Thrombocytosis. 6. No history of diabetes, hypertension, but he is on Norvasc. 7. No known allergies. 8. Social history positive for smoking and alcohol use. No history of intravenous drug abuse. 9. MAR was noted. 10. Case discussed with RN. 11. Continue treatment per primary consultants. 12. Case discussed at length the ICU nurse, the patient currently in ICU. 13. Continue skin care protocol and pulmonary treatments for now. Subjective Constitutional: Denies: fever HEENT: Reports: congestion - mild Respiratory: Reports: shortness of breath - mild Cardiovascular: Denies: chest pain Gastrointestinal/Abdominal: Denies: nausea, vomiting, diarrhea Genitourinary: Reports: other - + melchor Neurologic: Denies: headache Psychiatric: Denies: depression Skin: Denies: rash Hematologic: Denies: bleeding Musculoskeletal: Denies: pain Allergies: Coded Allergies: No Known Allergies (Unverified , 06/01/16) Objective Vital Signs Last 24 Hour Vital Signs Date Time Temp Pulse Resp B/P (MAP) Pulse Ox O2 Delivery O2 Flow Rate FiO2 07/26/18 15:41 104 126/79 07/26/18 10:24 97.8 07/26/18 09:53 102 130/82 07/26/18 08:25 Nasal Cannula 3.0 07/26/18 08:00 97.8 102 20 130/82 (98) 95 07/26/18 04:10 147 123/81 07/26/18 04:00 157 07/26/18 04:00 Nasal Cannula 3.0 07/26/18 04:00 97.4 132 19 127/102 (110) 97 07/26/18 00:00 147 07/26/18 00:00 Nasal Cannula 3.0 07/26/18 00:00 97.6 150 18 123/81 (95) 99 07/25/18 21:45 130 07/25/18 21:30 161 138/87 07/25/18 20:00 Nasal Cannula 3.0 07/25/18 20:00 154 07/25/18 20:00 98.5 150 18 138/87 (104) 93 07/25/18 18:00 98 117/76 Height (Feet): 5 Height (Inches): 9.00 Weight (Pounds): 160 General Appearance: no acute distress, other - weak but responsive HEENT: normocephalic, atraumatic, anicteric, supple, no JVD, other Respiratory/Chest: crackles/rales, rhonchi - bilaterally Cardiovascular: normal rate, regular rhythm, no gallop/murmur, no JVD Abdomen: normal bowel sounds, soft, non tender, no organomegaly, non distended Genitourinary: other - + melchor - urine slt cloudy Extremities: no cyanosis Skin: no rash 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 Apparent elevation of the right hemidiaphragm is again noted. The left lung demonstrates a very faint opacity in the left midlung which is not evident previously. However, interstitial congestion in the left lung has improved. Impression: Persistent right-sided pleural effusion and fairly extensive parenchymal infiltrate or edema Improved left lung interstitial congestion. Focal patchy left lung abnormality was not evident previously, however, and could represent a small area of infiltrate Chest x-ray - 07/22/18 - COMPARISON: Chest x-ray 07/19/18 837 FINDINGS: Lungs: Increasing opacities of the right lung. Pleural space: Slightly increasing right pleural effusion. No pneumothorax. Heart: Unremarkable. No cardiomegaly. Mediastinum: Unremarkable. Bones/joints: Unremarkable. Tubes, lines and devices: Left PICC line tip appears further advanced into the right atrium. NG tube traverses diaphragm, tip is not seen. Upper abdomen: Midepigastric gastric surgical clips. IMPRESSION: 1. Left PICC line tip appears further advanced into the right atrium. 2. Increasing opacities of the right lung. 3. Slightly increasing right pleural effusion. 07/24/18 - chest x-ray - A single view chest radiograph was obtained. Findings: Hazy opacity at the right lung base may be a pleural effusion. Heart is enlarged. There is suggestion of mild interstitial edema. PICC line is present on the left. IMPRESSION: Suspected mild interstitial edema and a small right pleural effusion. Laboratory Tests Test 07/26/18 06:35 White Blood Count 15.5 K/UL (4.8-10.8) H Red Blood Count 3.89 M/UL (4.70-6.10) L Hemoglobin 13.4 G/DL (14.2-18.0) L Hematocrit 39.1 % (42.0-52.0) L Mean Corpuscular Volume 101 FL (80-99) H Mean Corpuscular Hemoglobin 34.5 PG (27.0-31.0) H Mean Corpuscular Hemoglobin Concent 34.3 G/DL (32.0-36.0) Red Cell Distribution Width 13.5 % (11.6-14.8) Platelet Count 569 K/UL (150-450) H Mean Platelet Volume 6.6 FL (6.5-10.1) Neutrophils (%) (Auto) 81.6 % (45.0-75.0) H Lymphocytes (%) (Auto) 6.7 % (20.0-45.0) L Monocytes (%) (Auto) 8.2 % (1.0-10.0) Eosinophils (%) (Auto) 2.3 % (0.0-3.0) Basophils (%) (Auto) 1.1 % (0.0-2.0) Prothrombin Time 11.2 SEC (9.30-11.50) Prothromb Time International Ratio 1.1 (0.9-1.1) Activated Partial Thromboplast Time 28 SEC (23-33) Sodium Level 139 MMOL/L (136-145) Potassium Level 4.1 MMOL/L (3.5-5.1) Chloride Level 104 MMOL/L (98-107) Carbon Dioxide Level 27 MMOL/L (21-32) Anion Gap 9 mmol/L (5-15) Blood Urea Nitrogen 19 mg/dL (7-18) H Creatinine 0.8 MG/DL (0.55-1.30) Estimat Glomerular Filtration Rate > 60 mL/min (>60) Glucose Level 124 MG/DL (74-106) H Calcium Level 8.8 MG/DL (8.5-10.1) Current Medications Medications (Trade) Dose Ordered Sig/Mukesh Route PRN Reason Start Time Stop Time Status Last Admin Dose Admin Acetaminophen (Tylenol) 650 mg Q4H PRN RECTAL Prn for Temp >100.5 07/25/18 15:00 08/14/18 18:59 Al Hydroxide/Mg Hydroxide (Mylanta) 15 ml Q6H PRN NG DYSPEPSIA 07/25/18 13:00 08/11/18 12:59 Albuterol/ Ipratropium (Albuterol/ Ipratropium) 3 ml Q4H PRN HHN Shortness of Breath 07/25/18 13:00 07/28/18 12:59 Chlorhexidine Gluconate (Estrella-Hex 2%) 1 applic DAILY@2000 TOPIC 07/25/18 20:00 08/15/18 19:59 07/25/18 21:29 Dextrose (Dextrose 50%) 25 ml Q30M PRN IV Hypoglycemia 07/25/18 12:30 08/17/18 00:00 Dextrose (Dextrose 50%) 50 ml Q30M PRN IV hypoglycemia 07/25/18 12:30 08/17/18 00:00 Diphenhydramine HCl (Benadryl) 12.5 mg Q6H PRN IVP Itching/Pruritis 07/25/18 13:00 08/11/18 12:59 Fat Emulsion Intravenous 192 ml/Amino Acids/ Electrolytes/ Dextrose 1,872 ml @ 78 mls/hr Q24H IV 07/26/18 10:01 07/26/18 20:59 Fat Emulsion Intravenous 192 ml/Amino Acids/ Electrolytes/ Dextrose 1,872 ml @ 78 mls/hr Q24H IV 07/26/18 21:00 08/25/18 20:59 Fluconazole/ Sodium Chloride 200 ml @ 200 mls/hr Q24H IV 07/25/18 16:30 07/30/18 16:29 07/25/18 17:08 Heparin Sodium (Porcine) (Heparin 5000 units/ml) 5,000 units Q12HR SUBQ 07/25/18 21:00 08/02/18 08:59 07/25/18 21:33 Insulin Aspart (NovoLOG) No Dose Q6HR SUBQ 07/25/18 13:00 08/17/18 12:59 07/26/18 05:57 Lorazepam (Ativan 2mg/ml 1ml) 1 mg Q1H PRN IV For Anxiety 07/25/18 13:00 07/26/18 18:59 Magnesium Hydroxide (Mom) 30 ml BIDPRN PRN NG Constipation 07/25/18 13:00 08/24/18 12:59 Meropenem 1 gm/ Sodium Chloride 100 ml @ 200 mls/hr Q8HR IVPB 07/25/18 14:00 07/28/18 15:59 07/26/18 14:40 Metoprolol Tartrate (Lopressor) 5 mg Q6H IVP 07/25/18 21:00 08/24/18 20:59 07/26/18 15:41 Nicotine (Nicoderm) 1 patch Q24H TDERMAL 07/25/18 18:00 08/08/18 17:59 07/25/18 19:02 Ondansetron HCl (Zofran) 4 mg Q6H PRN IVP Nausea & Vomiting 07/25/18 13:00 08/01/18 12:59 Pantoprazole (Protonix) 40 mg EVERY 12 HOURS IVP 07/25/18 21:00 08/09/18 20:59 07/26/18 09:54 Phytonadione (Vitamin K) 10 mg QWEEK SUBQ 07/31/18 09:00 08/30/18 08:59 Tyler Madsen MD Jul 26, 2018 16:18
--- NOTE | 2018-07-26 19:45 | NUR ---
NURSE NOTES: Received patient JAVIER Fraser. Patient on bed, awake, on melchor catheter. Jordan-baldwin in place at abdomen. Noted Double lumen picc Line on left upper arm. on NPO at midnight for Gtube placement. XRay today results are in and in the chart for reference. Call light within reach. Bed brakes engaged.
--- NOTE | 2018-07-26 20:31 | NUR ---
HAND-OFF: Report given to Ani Keyes.
[2018-07-26] MEDS: Dyna-Hex 2% Top Sol 2oz TOPIC SCH (21:18)
[2018-07-26] MEDS ORDERED: Ketorolac 30mg Inj IV SCH (22:00)
[2018-07-26] MEDS ORDERED: Ketorolac 30mg Inj IV PRN (22:15)
--- NOTE | 2018-07-26 22:40 | NUR ---
NURSE NOTES: Patient running HR [address] Mascorro, call taker MD for Dr. Kinsey regarding HR. Metoprolol 5mg/5ml IVP given an hour ago. Given Toradol 30mg IVP for complaints of pain. Will keep patient on monitoring.
--- NOTE | 2018-07-26 22:50 | NUR ---
NURSE NOTES: Notified Dr. Patel, ordered another dose of Metoprolol 5mg/5ml IVP x1. HR after given is at 140. MD Dr. Patel aware.
[2018-07-26] MEDS ORDERED: Metoprolol 5mg/5ml Inj IVP ONE (23:15)
[2018-07-27] VITALS (18 sets, daily range): BP systolic 90–125; BP diastolic 58–93
--- NOTE | 2018-07-27 | NUR ---
NURSE NOTES: HR going up again at 150. Dr. Patel again contacted for further interventions, awaiting for call back.
--- NOTE | 2018-07-27 00:30 | NUR ---
HAND-OFF: Report given to Karlie Cuadra RN. Endorsed plan of care. Patient given Metoprolol 5mg/5ml x1 dose per Dr Patel due to HR high as high as 149. After giving dose, patient's HR went 140s. Made Dr. Patel aware. At midnight, HR going up again at 150. Dr. Patel again contacted for further interventions, and he gave new orders. Charge nurse made aware.
--- NOTE | 2018-07-27 01:00 | NUR ---
NURSE NOTES: Received report from Reynold Dumas RN. Pt is resting in the bed watching TV, no distress in 4L NC. TPN is running at 78/h. P200 matrass applied. Safety measures are applied with bed alarm on, bed in lowest position with side rails up x2, and breaks are engaged. Call light and side table are w/in reach. HR 151 noted in the monitor. Endorsed that Dr. Patel and Dr. Blanco are aware. One time dose of metoprolol 5mg was given by previous nurse but HR still 140's, also noticed twice to Dr. Patel. Last notice was done at 0100 ,07-27-2018. No other orders are given for it. VSS. Pt is able to make needs known, and asymptomatic. Awaiting call back. Will continue to monitor. Addendum: 07/27/18 at 0141 by [place] AWAN RN Dr. Patel was called regarding HR 150 at 0130, again. Awaiting call back. Currently, pt is sleeping and VSS, BP 119/93, RR 20, afebrile.
[2018-07-27] MEDS: NovoLOG Insulin Flexpen SUBQ SCH ×4 (01:11→17:22)
--- NOTE | 2018-07-27 02:00 | NUR ---
TRANSFER TO FLOOR: Patient transferred to Bed C at ICU, per Dr. Patel. Report given to Patricia Moss RN. Belongings and medications given to Patricia Moss RN. Tele monitor #10 was retuned to 2E. Family and or S/O informed of transfer.
[2018-07-27] MEDS ORDERED: Amiodarone 900 MG in D5W 500ml 482 ML IV SCH (03:00)
--- NOTE | 2018-07-27 03:00 | NUR ---
NURSE NOTES: transfer fr tele with tachycardia rate pt was started amio drip at1mg hr 1mg hr 170 pt awake and alert
[2018-07-27] MEDS ORDERED: Amiodarone 150mg/3ml Amp ONE (03:27)
[2018-07-27] MEDS ORDERED: Ketorolac 30mg Inj IV PRN (04:15)
[2018-07-27] MEDS ORDERED: Albuterol/Ipratropium 3ml neb HHN PRN (05:00)
[2018-07-27 05:58] LABS: HEMATOCRIT 37.6 % (42.0-52.0); HEMOGLOBIN 12.9 G/DL (14.2-18.0); MEAN CORPUSCULAR VOLUME 101 FL (80-99); PLATELET COUNT 595 K/UL (150-450); RED BLOOD COUNT 3.73 M/UL (4.70-6.10); RED CELL DISTRIBUTION WIDTH 13.2 % (11.6-14.8); WHITE BLOOD COUNT 19.6 K/UL (4.8-10.8)
[2018-07-27 06:05] LABS: INR 1.1 (0.9-1.1)
[2018-07-27 06:36] LABS: PHOSPHORUS 3.3 MG/DL (2.5-4.9)
--- NOTE | 2018-07-27 06:49 | Anethesia Preoperative Eval ---
Anesthesia Pre-op PMH/ROS General Date of Evaluation: Jul 27, 2018 Time of Evaluation: 06:38 Anesthesiologist: eve ASA Score: ASA 4 Mallampati Score Class I : Soft palate, uvula, fauces, pillars visible Class II: Soft palate, uvula, fauces visible Class III: Soft palate, base of uvula visible Class IV: Only hard plate visible Mallampati Classification: Class II Surgeon: sujit Diagnosis: dysphagia Surgical Procedure: egd/peg Anesthesia History: none Social History: current smoker, alcohol use Family History: no anesthesia problems Allergies: Coded Allergies: No Known Allergies (Unverified , 06/01/16) Medications: see eMAR Patient NPO?: Yes NPO Date: Jul 12, 2018 NPO Time: 0000 Past Medical History Cardiovascular: Reports: arrhythmia - tachycardia Pulmonary: Reports: other - respiratory dz, oxygen dependent Gastrointestinal/Genitourinary: Reports: GERD, other - abnl lfts, hep c, fatty liver, etoh pancreatitis, cholecystitis, ulcers HEENT: Reports: other - farsighted Hematology/Immune: Reports: anemia Anesthesia Pre-op Phys. Exam Physician Exam Last Vital Signs Date Time Temp Pulse Resp B/P (MAP) Pulse Ox O2 Delivery O2 Flow Rate FiO2 07/27/18 05:00 149 20 98/80 (86) 07/27/18 04:53 97 Nasal Cannula 4.0 36 07/27/18 04:00 98.6 Airway Exam Mallampati Score: Class II Teeth: missing Anesthesia Pre-op A/P Labs Hematology Test 07/27/18 05:15 White Blood Count 19.6 K/UL (4.8-10.8) H Red Blood Count 3.73 M/UL (4.70-6.10) L Hemoglobin 12.9 G/DL (14.2-18.0) L Hematocrit 37.6 % (42.0-52.0) L Mean Corpuscular Volume 101 FL (80-99) H Mean Corpuscular Hemoglobin 34.6 PG (27.0-31.0) H Mean Corpuscular Hemoglobin Concent 34.3 G/DL (32.0-36.0) Red Cell Distribution Width 13.2 % (11.6-14.8) Platelet Count 595 K/UL (150-450) H Mean Platelet Volume 6.6 FL (6.5-10.1) Neutrophils (%) (Auto) % (45.0-75.0) Lymphocytes (%) (Auto) % (20.0-45.0) Monocytes (%) (Auto) % (1.0-10.0) Eosinophils (%) (Auto) % (0.0-3.0) Basophils (%) (Auto) % (0.0-2.0) Neutrophils % (Manual) Pending Lymphocytes % (Manual) Pending Platelet Estimate Pending Platelet Morphology Pending Coagulation Test 07/27/18 05:15 Prothrombin Time 11.4 SEC (9.30-11.50) Prothromb Time International Ratio 1.1 (0.9-1.1) Activated Partial Thromboplast Time 29 SEC (23-33) Chemistry Test 07/27/18 05:15 Sodium Level Pending Potassium Level Pending Chloride Level Pending Carbon Dioxide Level Pending Blood Urea Nitrogen Pending Creatinine Pending Estimat Glomerular Filtration Rate Pending Glucose Level Pending Calcium Level Pending Phosphorus Level 3.3 MG/DL (2.5-4.9) Magnesium Level 2.5 MG/DL (1.8-2.4) H Total Bilirubin Pending Aspartate Amino Transf (AST/SGOT) Pending Alanine Aminotransferase (ALT/SGPT) Pending Alkaline Phosphatase Pending Total Protein Pending Albumin Pending Globulin Pending Risk Assessment & Plan Assessment: asa3. tachycardia 149, hypotensive 98/60. patient appears to be decompensating over the last 24 hours. Plan: patient's cardiovascular status must be optimized before procedure. obtain cardiac clearance. Mac Status Change Before Surgery: Yes - patient's cardiovascular status appears to be decompensating over the last 24 hours. Pre-Antibiotics Drug: Cathy Rangel MD Jul 27, 2018 06:49
[2018-07-27] MEDS ORDERED: DiphenhydrAMINE 50mg/ml Inj IVP PRN ×2 (07:00→13:00)
[2018-07-27] MEDS ORDERED: Acetaminophen 650 MG SUPP RECTAL PRN (07:00)
[2018-07-27 07:01] LABS: ALANINE AMINOTRANSFERASE 229 U/L (12-78); ALBUMIN 2.1 G/DL (3.4-5.0); ALBUMIN/GLOBULIN RATIO 0.3 (1.0-2.7); ALKALINE PHOSPHATASE 153 U/L (46-116); ANION GAP 13 mmol/L (5-15); ASPARTATE AMINO TRANSFERASE 172 U/L (15-37); BILIRUBIN,TOTAL 0.4 MG/DL (0.2-1.0); BLOOD UREA NITROGEN 25 mg/dL (7-18); CALCIUM 8.6 MG/DL (8.5-10.1); CARBON DIOXIDE 22 MMOL/L (21-32); CHLORIDE 105 MMOL/L (98-107); CREATININE 0.8 MG/DL (0.55-1.30); POTASSIUM 4.2 MMOL/L (3.5-5.1); SODIUM 139 MMOL/L (136-145)
--- NOTE | 2018-07-27 07:15 | NUR ---
NURSE NOTES: Received pt from JAVIER Bañuelos. A/Ox2; forgetful at times. 2LNC, SPo2 97%, no resp distress noted. Gillian heard bilateral B/S heard. Patient is ST on monitor tech with HR 148. Amiodarone drip running @1mg/hr. AVI PICC noted, dressing c/d/i, changed on 07/26/18. TPN running through PICC as well. NPO at this time. Surgical dressing on abd is c/d/i, changed last night. JUNE with small dark serous drainage noted. F/C draining yellow urine well to gravity. Pt has EGD w/possible PEG today. consent signed, GI checklist done. Denies any pain at this time. Bed locked, alarmed and in lowest position. Will continue plan of care.
--- NOTE | 2018-07-27 07:37 | NUR ---
HAND-OFF: Report given to bev william.using s bar
[2018-07-27] MEDS ORDERED: Amiodarone 900mg in D5W 500ml IV SCH (08:00)
[2018-07-27] MEDS: Heparin 5000 units/ml inj SUBQ SCH ×2 (08:10→20:45)
--- NOTE | 2018-07-27 08:18 | NUR ---
P.T Note: Pt was transferred to ICU. Will put P.T on hold at this time. please reorder when pt is medically stable to mobilize. Thank you.
[2018-07-27] MEDS: Metoprolol 5mg/5ml Inj IVP SCH ×2 (08:22→15:00)
[2018-07-27] MEDS: Pantoprazole Inj IVP SCH ×2 (08:23→20:43)
--- NOTE | 2018-07-27 08:49 | NUR ---
RADIOLOGY DEPT CHEST X-RAY DONE.-P.DYE
--- NOTE | 2018-07-27 09:15 | NUR ---
NURSE NOTES: Lopressor 5mg IVP given over 1 min, Pt is in normal HR decreased to 83, BP 101/67. Pt is still alert and able to verbalize needs. , at bedside. EKG done and in chart.
--- NOTE | 2018-07-27 09:24 | NUR ---
DISCHARGE SWALLOW/SPEECH THERAPY SUMMARY: PATIENT SEEN FOR SWALLOW EVAL, SEE REPORT, NOW TRANSFERRED TO ICU FOR TACHYCARDIA. WILL D/C FROM SERVICE AT THIS TIME, PLEASE RECONSULT WHEN INDICATED.
--- NOTE | 2018-07-27 10:08 | NUR ---
NURSE NOTES: Received orders to D/C diflucan IV and start Micafungin 100mg IV QD per Dr. Armendariz. read back given and verified.
--- NOTE | 2018-07-27 10:35 | Pre-Procedure Note/Attestation ---
Pre-Procedure Note/Attestation Complete Prior to Procedure Planned Procedure: not applicable Procedure Narrative: dysphagia Indications for Procedure Pre-Operative Diagnosis: EGD/peg Attestation I attest that I discussed the nature of the procedure; its benefits; risks and complications; and alternatives (and the risks and benefits of such alternatives ), prior to the procedure, with the patient (or the patient's legal licensing representative). I attest that, if there was a reasonable possibility of needing a blood transfusion, the patient (or the patient's legal licensing representative) was given the [facility] standardized written summary, pursuant to the Bill Mirella Blood Safety Act ([place] Health and Safety Code # 1645, as amended). I attest that I re-evaluated the patient just prior to the surgery and that there has been no change in the patient's H&P, except as documented below: Toñito Yip MD Jul 27, 2018 10:35
--- NOTE | 2018-07-27 10:37 | General Progress Note ---
Assessment/Plan Problem List: (1) Cholecystitis, acute ICD Codes: K81.0 - Acute cholecystitis SNOMED: 20397401 (2) Abnormal LFTs ICD Codes: R79.89 - Other specified abnormal findings of blood chemistry SNOMED: 747935172 (3) Fatty liver ICD Codes: K76.0 - Fatty (change of) liver, not elsewhere classified SNOMED: 732473692 Assessment/Plan plan peg placement TF dc TPN fu labs Subjective ROS Limited/Unobtainable: No Allergies: Coded Allergies: No Known Allergies (Unverified , 06/01/16) Objective Last 24 Hour Vital Signs Date Time Temp Pulse Resp B/P (MAP) Pulse Ox O2 Delivery O2 Flow Rate FiO2 07/27/18 09:00 Nasal Cannula 3.0 07/27/18 08:22 140 105/69 07/27/18 07:41 Nasal Cannula 2.0 28 07/27/18 07:41 97 Nasal Cannula 2.0 28 07/27/18 07:38 147 23 Nasal Cannula 2.0 28 07/27/18 05:00 149 20 98/80 (86) 07/27/18 04:53 97 Nasal Cannula 4.0 36 07/27/18 04:53 Nasal Cannula 4.0 36 07/27/18 04:30 145 20 112/82 (92) 07/27/18 04:00 147 07/27/18 04:00 98.6 149 20 118/80 (93) 07/27/18 01:42 20 119/93 (102) 07/27/18 00:05 145 07/27/18 00:00 98.4 115 18 125/85 (98) 96 07/26/18 23:18 157 106/74 07/26/18 21:30 120 23 141/90 (107) 96 07/26/18 21:24 120 141/90 07/26/18 21:00 Nasal Cannula 3.0 07/26/18 20:53 117 07/26/18 20:23 97 Nasal Cannula 4.0 36 07/26/18 20:23 Nasal Cannula 4.0 36 07/26/18 20:00 98.2 110 19 130/83 (99) 96 07/26/18 16:19 91 07/26/18 16:00 97.9 116 20 132/81 (98) 94 07/26/18 15:41 104 126/79 07/26/18 12:15 99 07/26/18 12:00 98.2 92 16 134/79 (97) 93 Intake and Output 07/26/18 07/27/18 19:00 07:00 Intake Total 190.33 ml Output Total 800 ml 760 ml Balance -800 ml -569.67 ml IV Total 190.33 ml Output Urine Total 800 ml 760 ml Laboratory Tests 07/27/18 05:15: White Blood Count 19.6H, Red Blood Count 3.73L, Hemoglobin 12.9L, Hematocrit 37.6L, Mean Corpuscular Volume 101H, Mean Corpuscular Hemoglobin 34.6H, Mean Corpuscular Hemoglobin Concent 34.3, Red Cell Distribution Width 13.2, Platelet Count 595H, Mean Platelet Volume 6.6, Neutrophils (%) (Auto) , Lymphocytes (%) ( Auto) , Monocytes (%) (Auto) , Eosinophils (%) (Auto) , Basophils (%) (Auto) , Differential Total Cells Counted 100, Neutrophils % (Manual) 81H, Lymphocytes % (Manual) 8L, Monocytes % (Manual) 3, Eosinophils % (Manual) 3, Basophils % ( Manual) 0, Band Neutrophils 5, Platelet Estimate IncreasedH, Platelet Morphology Normal, Macrocytosis 1+, Prothrombin Time 11.4, Prothromb Time International Ratio 1.1, Activated Partial Thromboplast Time 29, Sodium Level 139, Potassium Level 4.2, Chloride Level 105, Carbon Dioxide Level 22, Anion Gap 13, Blood Urea Nitrogen 25H, Creatinine 0.8, Estimat Glomerular Filtration Rate > 60, Glucose Level 142H, Calcium Level 8.6, Phosphorus Level 3.3, Magnesium Level 2.5H, Total Bilirubin 0.4, Aspartate Amino Transf (AST/SGOT) 172H, Alanine Aminotransferase (ALT/SGPT) 229H, Alkaline Phosphatase 153H, Total Protein 8.7H, Albumin 2.1L, Globulin 6.6, Albumin/Globulin Ratio 0.3L, Lipase 653H Height (Feet): 5 Height (Inches): 8.00 Weight (Pounds): 159 General Appearance: no apparent distress EENT: normal ENT inspection Neck: supple Cardiovascular: normal rate, regularly irregular Abdomen: normal bowel sounds, non tender, soft Extremities: non-tender Toñito Yip MD Jul 27, 2018 10:37
[2018-07-27] MEDS ORDERED: Propofol 200mg/20ml IV ONE (10:45)
[2018-07-27] MEDS ORDERED: Lidocaine 1% MPF 10mg/ml 5ml ONE (10:45)
--- NOTE | 2018-07-27 10:51 | Diagnostic Imaging Report ---
Indication: Dyspnea Comparison: 07/24/2018 A single view chest radiograph was obtained. Findings: There is a dense opacification of the right lung base suspicious for pneumonia. Please correlate clinically. There is also evidence of a pleural effusion. Similar findings noted previously. PICC line is again noted. Heart size is normal. IMPRESSION: Suspected right pleural effusion and underlying consolidation suspicious for pneumonia. Correlate clinically
--- NOTE | 2018-07-27 10:54 | NUR ---
NURSE NOTES: Dr. Yip at bedside with Anesthesiologist Dr. Palafox for EGD w/poss. PEG.
--- NOTE | 2018-07-27 11:02 | Endoscopy Procedure Note ---
Endoscopy Procedure Note General Indication for Procedure: dysphagia Procedures Performed: EGD, PEG Operative Findings/Diagnosis: same Specimen: none Pt Tolerated Procedure Well: Yes Estimated Blood Loss: none Anesthesia Anesthesiologist: leonid hassan Anesthesia: MAC Inserted Devices Implant(s) used?: No GI Core Measures 50 yrs or older w/o bx or poly: Not Applicable 10yrs. F/U not recommended: Not Applicable Toñito Yip MD Jul 27, 2018 11:02
--- NOTE | 2018-07-27 11:07 | Diagnostic Imaging Report ---
Indication: Dyspnea Comparison: 07/26/2018 A single view chest radiograph was obtained. Findings: Patchy infiltrate noted in the right lung. There is less right pleural effusion present. Heart is mildly enlarged. PICC line is noted. IMPRESSION: Diminished right pleural effusion which may have 5 decreased or shifted. Patchy right basal and perihilar infiltrate noted
--- NOTE | 2018-07-27 11:15 | NUR ---
NURSE NOTES: PEG inserted left lower quadrant by Dr. Layton , post op vitals: BP 110/67, HR 90, T 98.7, RR 18, SPO2 99%. patient is lethargic from sedation but responds to tactile stimuli.
--- NOTE | 2018-07-27 11:18 | General Progress Note ---
Progress Note Progress Note a fib overnignt. in ICU on amio gtt awake, alert, responsive overall improving labs noted pending G Salinas Pritchard Jul 27, 2018 11:18
--- NOTE | 2018-07-27 12:30 | NUR ---
Social Work This SW met with patient currently in the ICU to address code status. Patient appears alert, with some confusion at this time. This Sw spoke with spouse, Bonnie Chow ([phone]) at bedside, who recognizes patient is showing a decline in status, pending G-tube placement at this time. Spouse was insisting on taking patient home with spouse, son, grandson to assist. This Sw stressed the needs of patient, suggesting applying for [facility] (for SNF placement, when family cannot care for patient). Spouse then expressing her concerns as well and in agreement to apply for [facility]. Geetha Larose informed and will meet with spouse today. Spouse stating she would prefer that patient make all the decisions. This Sw encouraged spouse to be involved in the decision making and applying for [facility], since patient is confused at times. Spouse explaining to this SW that she would like to continue full code, full treatment at this time (does not want to change status at this time).
--- NOTE | 2018-07-27 12:40 | General Progress Note ---
Assessment/Plan Assessment/Plan #Sepsis #Acute purulent gangrenous cholecystitis. #klebsiella cholecystitis #acute Hypoxic respiratory failure #Acute Metabolic Encephalopathy - due to alcohol withdrawal and sepsis - meropenem, Diflucan - can stop vanco per ID - bcx x 2 ngtd - s/p ercp 07/12 - gen surg following s/p lap jocelyn converted to open jocelyn 07/12 - extubated on 07/16/18 - off o2 ncl - pulm following appreciated - pain control - appreciate surg recs - tpn -NG tube removed -Awaiting PEG -PT ordered #Acute Blood Loss Anemia - due to recent surgery - no overt bleeding noted currently - hgb 6.8 07/15, transfused 2U, 9.7 (07/16) - stable #Pleural Effusions - b/l - per mrcp - stable - pulm consult appreciated #Alcohol Pancreatitis #Intractable abdominal pain #intractable nausea/vomiting #Transaminitis #Alcohol Hepatitis #Alcohol withdrawals #Fatty Liver Disease #Hepatitis C - LFTs 446/532 - Lipase 687 - due to alcohol abuse - INR 1.0 - discriminant function, 4.5 , no need for steroids - US abd completed and reviewed, showing fatty liver disease. GS present, no obstruction noted - ppi - PRN antiemetics, zofran prn - Banana bag - close lab monitoring - IVF - monitor carefully for withdrawals - tube feeds held due to worsening pancreatitis - TPN - Per GI, will need ERCP in 6-8 weeks for stent removal #Failure to thrive - due to alcohol withdrawals and the above - alcoholic pancreatitis - fluids #Alcohol Abuse - educated on cessation for 15 mins - patient states he understands and will try to quit - RN notified to monitor carefully with withdrawals - prn ativan - ciwa #Uncontrolled HTN and tachycardia overnight -all oral BP meds held for now -continue metoprolol IV q6h -transferred to ICU, on amiodarone drip #Tobacco abuse - smokes 1ppd - educated on smoking cessation for over 15 mins, states he understands the risks of smoking and will try to quit #Dysphagia -seen by [employer] ANALYST -strict NPO recommended at this time -PEG placement today diet: continue TPN Subjective Date patient seen: Jul 27, 2018 Time patient seen: 09:16 ROS Limited/Unobtainable: Yes Cardiovascular: Reports: chest pain Respiratory: Reports: shortness of breath Gastrointestinal/Abdominal: Reports: abdominal pain Allergies: Coded Allergies: No Known Allergies (Unverified , 06/01/16) Subjective Medicine follow up for multiple medical problems including acute gangrenous cholecystitis, acute hypoxic respiratory failure, acute encephalopathy Patient transferred to ICU overnight due to persistent rapid afib, started on amiodarone drip with return to sinus rhythm Objective Last 24 Hour Vital Signs Date Time Temp Pulse Resp B/P (MAP) Pulse Ox O2 Delivery O2 Flow Rate FiO2 07/27/18 09:00 Nasal Cannula 3.0 07/27/18 08:22 140 105/69 07/27/18 08:00 148 07/27/18 07:41 Nasal Cannula 2.0 28 07/27/18 07:41 97 Nasal Cannula 2.0 28 07/27/18 07:38 147 23 Nasal Cannula 2.0 28 07/27/18 05:00 149 20 98/80 (86) 07/27/18 04:53 97 Nasal Cannula 4.0 36 07/27/18 04:53 Nasal Cannula 4.0 36 07/27/18 04:30 145 20 112/82 (92) 07/27/18 04:00 147 07/27/18 04:00 98.6 149 20 118/80 (93) 07/27/18 01:42 20 119/93 (102) 07/27/18 00:05 145 07/27/18 00:00 98.4 115 18 125/85 (98) 96 07/26/18 23:18 157 106/74 07/26/18 21:30 120 23 141/90 (107) 96 07/26/18 21:24 120 141/90 07/26/18 21:00 Nasal Cannula 3.0 07/26/18 20:53 117 07/26/18 20:23 97 Nasal Cannula 4.0 36 07/26/18 20:23 Nasal Cannula 4.0 36 07/26/18 20:00 98.2 110 19 130/83 (99) 96 07/26/18 16:19 91 07/26/18 16:00 97.9 116 20 132/81 (98) 94 07/26/18 15:41 104 126/79 Intake and Output 07/26/18 07/27/18 19:00 07:00 Intake Total 190.33 ml Output Total 800 ml 760 ml Balance -800 ml -569.67 ml IV Total 190.33 ml Output Urine Total 800 ml 760 ml Laboratory Tests 07/27/18 05:15: White Blood Count 19.6H, Red Blood Count 3.73L, Hemoglobin 12.9L, Hematocrit 37.6L, Mean Corpuscular Volume 101H, Mean Corpuscular Hemoglobin 34.6H, Mean Corpuscular Hemoglobin Concent 34.3, Red Cell Distribution Width 13.2, Platelet Count 595H, Mean Platelet Volume 6.6, Neutrophils (%) (Auto) , Lymphocytes (%) ( Auto) , Monocytes (%) (Auto) , Eosinophils (%) (Auto) , Basophils (%) (Auto) , Differential Total Cells Counted 100, Neutrophils % (Manual) 81H, Lymphocytes % (Manual) 8L, Monocytes % (Manual) 3, Eosinophils % (Manual) 3, Basophils % ( Manual) 0, Band Neutrophils 5, Platelet Estimate IncreasedH, Platelet Morphology Normal, Macrocytosis 1+, Prothrombin Time 11.4, Prothromb Time International Ratio 1.1, Activated Partial Thromboplast Time 29, Sodium Level 139, Potassium Level 4.2, Chloride Level 105, Carbon Dioxide Level 22, Anion Gap 13, Blood Urea Nitrogen 25H, Creatinine 0.8, Estimat Glomerular Filtration Rate > 60, Glucose Level 142H, Calcium Level 8.6, Phosphorus Level 3.3, Magnesium Level 2.5H, Total Bilirubin 0.4, Aspartate Amino Transf (AST/SGOT) 172H, Alanine Aminotransferase (ALT/SGPT) 229H, Alkaline Phosphatase 153H, Total Protein 8.7H, Albumin 2.1L, Globulin 6.6, Albumin/Globulin Ratio 0.3L, Lipase 653H Height (Feet): 5 Height (Inches): 8.00 Weight (Pounds): 159 General Appearance: alert, confused Neck: non-tender, normal alignment Cardiovascular: normal peripheral pulses, normal rate, regular rhythm Respiratory/Chest: chest wall non-tender, lungs clear, normal breath sounds Abdomen: non tender, soft Tomás Cruz MD Jul 27, 2018 12:40
[2018-07-27] MEDS ORDERED: fentaNYL 100 mcg/2 mL IV PRN (13:00)
[2018-07-27] MEDS ORDERED: Midazolam 2mg/2ml Inj IVP PRN (13:00)
[2018-07-27] MEDS ORDERED: Milk of Magnesia 30ml Ud NG PRN (13:00)
[2018-07-27] MEDS ORDERED: Atropine Inj 1mg/10ml Syr IV PRN (13:00)
--- NOTE | 2018-07-27 13:00 | NUR ---
NURSE NOTES: STAT KUB ordered for placement confirmation. Start GTF at 1500 and d/c TPN per Dr. Yip.
--- NOTE | 2018-07-27 13:06 | Anethesia Preoperative Eval ---
Anesthesia Pre-op PMH/ROS General Date of Evaluation: Jul 27, 2018 Time of Evaluation: 10:41 Anesthesiologist: eve ASA Score: ASA 4 Mallampati Score Class I : Soft palate, uvula, fauces, pillars visible Class II: Soft palate, uvula, fauces visible Class III: Soft palate, base of uvula visible Class IV: Only hard plate visible Mallampati Classification: Class II Surgeon: sujit Diagnosis: dysphagia Surgical Procedure: egd/peg Anesthesia History: none Social History: current smoker, alcohol use Family History: no anesthesia problems Allergies: Coded Allergies: No Known Allergies (Unverified , 06/01/16) Medications: see eMAR Patient NPO?: Yes NPO Date: Jul 12, 2018 NPO Time: 0000 Past Medical History Cardiovascular: Reports: arrhythmia Gastrointestinal/Genitourinary: Reports: GERD, other - hep c, etoh pancreatitis , liver dz, PSxH Narrative: appendectomy, ercp Anesthesia Pre-op Phys. Exam Physician Exam Last Vital Signs Date Time Temp Pulse Resp B/P (MAP) Pulse Ox O2 Delivery O2 Flow Rate FiO2 07/27/18 09:00 Nasal Cannula 3.0 07/27/18 08:22 140 105/69 07/27/18 07:41 28 07/27/18 07:41 97 07/27/18 07:38 23 07/27/18 04:00 98.6 Constitutional: NAD Neurologic: CN 2-12 intact Cardiovascular: RRR Gastrointestinal: S/NT/ND Airway Exam Mallampati Score: Class II MO: limited Neck: flexible TMD: 2fb ROM: limited Teeth: missing Anesthesia Pre-op A/P Labs Hematology Test 07/27/18 05:15 White Blood Count 19.6 K/UL (4.8-10.8) H Red Blood Count 3.73 M/UL (4.70-6.10) L Hemoglobin 12.9 G/DL (14.2-18.0) L Hematocrit 37.6 % (42.0-52.0) L Mean Corpuscular Volume 101 FL (80-99) H Mean Corpuscular Hemoglobin 34.6 PG (27.0-31.0) H Mean Corpuscular Hemoglobin Concent 34.3 G/DL (32.0-36.0) Red Cell Distribution Width 13.2 % (11.6-14.8) Platelet Count 595 K/UL (150-450) H Mean Platelet Volume 6.6 FL (6.5-10.1) Neutrophils (%) (Auto) % (45.0-75.0) Lymphocytes (%) (Auto) % (20.0-45.0) Monocytes (%) (Auto) % (1.0-10.0) Eosinophils (%) (Auto) % (0.0-3.0) Basophils (%) (Auto) % (0.0-2.0) Differential Total Cells Counted 100 Neutrophils % (Manual) 81 % (45-75) H Lymphocytes % (Manual) 8 % (20-45) L Monocytes % (Manual) 3 % (1-10) Eosinophils % (Manual) 3 % (0-3) Basophils % (Manual) 0 % (0-2) Band Neutrophils 5 % (0-8) Platelet Estimate Increased H Platelet Morphology Normal Macrocytosis 1+ Coagulation Test 07/27/18 05:15 Prothrombin Time 11.4 SEC (9.30-11.50) Prothromb Time International Ratio 1.1 (0.9-1.1) Activated Partial Thromboplast Time 29 SEC (23-33) Chemistry Test 07/27/18 05:15 Sodium Level 139 MMOL/L (136-145) Potassium Level 4.2 MMOL/L (3.5-5.1) Chloride Level 105 MMOL/L (98-107) Carbon Dioxide Level 22 MMOL/L (21-32) Anion Gap 13 mmol/L (5-15) Blood Urea Nitrogen 25 mg/dL (7-18) H Creatinine 0.8 MG/DL (0.55-1.30) Estimat Glomerular Filtration Rate > 60 mL/min (>60) Glucose Level 142 MG/DL (74-106) H Calcium Level 8.6 MG/DL (8.5-10.1) Phosphorus Level 3.3 MG/DL (2.5-4.9) Magnesium Level 2.5 MG/DL (1.8-2.4) H Total Bilirubin 0.4 MG/DL (0.2-1.0) Aspartate Amino Transf (AST/SGOT) 172 U/L (15-37) H Alanine Aminotransferase (ALT/SGPT) 229 U/L (12-78) H Alkaline Phosphatase 153 U/L (46-116) H Total Protein 8.7 G/DL (6.4-8.2) H Albumin 2.1 G/DL (3.4-5.0) L Globulin 6.6 g/dL Albumin/Globulin Ratio 0.3 (1.0-2.7) L Lipase 653 U/L (73-393) H Risk Assessment & Plan Assessment: asa4. cardiac rhythm converted to normal sinus rhythm. Dr. Patel (gripper installer) cleared patient for procedure. verbal clearance. witnessed by Dr. Yip Plan: mac Status Change Before Surgery: No Pre-Antibiotics Drug: Cathy Rangel MD Jul 27, 2018 13:06
--- NOTE | 2018-07-27 13:09 | Immediate Post-Op Evaluation ---
Immediate Post-Op Evalulation Immediate Post-Op Evalulation Procedure: egd/peg Date of Evaluation: Jul 27, 2018 Time of Evaluation: 11:17 IV Fluids: 180ml 0.9ns Blood Products: none Estimated Blood Loss: negligible Blood Pressure Systolic: 102 Blood Pressure Diastolic: 71 Pulse Rate: 89 Respiratory Rate: 18 O2 Sat by Pulse Oximetry: 99 Pain Score (1-10): 0 Nausea: No Vomiting: No Complications none Patient Status: awake, reacts, patent Hydration Status: adequate Drug: Cathy Rangel MD Jul 27, 2018 13:09
--- NOTE | 2018-07-27 13:11 | 48 Hour Post Anesthesia Eval ---
Post Anesthesia Evaluation Procedure: egd/peg Date of Evaluation: Jul 27, 2018 Time of Evaluation: 11:19 Blood Pressure Systolic: 110 0: 71 Pulse Rate: 88 Respiratory Rate: 18 Temperature (Fahrenheit): 98.6 O2 Sat by Pulse Oximetry: 99 Airway: patent Nausea: No Vomiting: No Pain Intensity: 0 Hydration Status: adequate Cardiopulmonary Status: stable Mental Status/LOC: patient returned to baseline Post-Anesthesia Complications: none Follow-up care needed: N/A Cathy Hampton MD Jul 27, 2018 13:11
[2018-07-27] MEDS ORDERED: Micafungin 100 MG in NS 110 ML IVPB SCH (14:00)
--- NOTE | 2018-07-27 14:32 | General Progress Note ---
Assessment/Plan Assessment/Plan Anemia of chronic disease due to underlying chronic medical issues, multifactorial, pancreatitis --> Anemia workup has been ordered/reviewed as well --> No evidence of hemolysis is noted, peripheral smear has been reviewed. --> Hgb goal >7. Transfuse prn. --> Epogen or iron at this time is not particularly indicated --> Medications have been reviewed # Thrombocytopenia is likely related to underlying reactive processs from pancreatitis, acute, as well as alcoholic intoxication and myelosuppression --> also patient has a history of hepatitis C from prior admission --> smear has been reviewed --> heparin sq is okay if needed for dvt ppx # Erythrocytosis is likely related to dehydration --> hgb goal >7, no evidence of bleeding currently --> given ivf already # Leukocytosis no e/o annie infection --> could be due to reactive process v cholecystitis --> wbc trend: 22-->18-->16-->14-->18 --> peripheral smear has been reviewed --> ercp repeat in 6-8 weeks, stent was placed # Pancreatitis with alcohol abuse --> recommend etoh cessation --> amylase and lipase prn --> Status post ERCP with sphincterotomy and stent placement # Transaminitis --> likely related to etoh abuse --> in past seen by gi # Alcohol abuse -- recommend cessation # PEG inserted left lower quadrant The timing of this note does not necessarily reflect the time of the patient was seen. Greatly appreciate consultation! Subjective ROS Limited/Unobtainable: Yes Allergies: Coded Allergies: No Known Allergies (Unverified , 06/01/16) Subjective 07/05: bp was high today and dc was cancelled until tomorow, on librium 07/06: wbc was high though other counts are better, no f/c 07/10: seen by bedside, heart rate increased, appears agitated, wbc 13.9 07/11: to get ercp tomorrow, surgery and gi following 07/12 ercp, sphincterotomy, stent placement surgery done today, currently having tremors and tachy. wbc 15.9, hgb 14, plt 429 07/13: Pt is intubated, seen by bedside,wbc 22, on abx, no acute distress 07/14: awake and comfortable, still intubated on vent, labs noted hb trending down, wbc 18, hgb 8. 07/16: seen by bedside, awake, comfortable, wbc 14, hgb 9, plt 613 07/17: awake, comfortable, status post ERCP with sphincterotomy wbc 21, hgb 10, plt 689. 07/18; seen by bedside, awake comfortable, on venturi mask, wbc 23, plt 754. 07/19: seen by bedside, awake and comfortable, no events, wbc 21 07/20: now out of the icu, doing better, wbc improved, remains on abx as per ID 07/22: Pt is awake, comfortable, wbc 16, lt 632, on abx 07/23 Pt is awake, comfortable, wbc 15, plt 574, on abx, CXR revelals, Increasing opacities of the right lung and Slightly increasing right pleural effusion 07/24: ng has been removed, seen by other consultants, hgb has improved, no bleeding 07/25: seen by bedside, awake, comfortable, on nasal canula, failed video swallow test and has some PO meds, wbc trending down. 07/26: awake, comfortable, G-tube placement consent signed 07/27: a janell overnignt, in ICU , awake, alert, responsive, PEG inserted today, wbc 19. Objective Last 24 Hour Vital Signs Date Time Temp Pulse Resp B/P (MAP) Pulse Ox O2 Delivery O2 Flow Rate FiO2 07/27/18 13:35 98.6 07/27/18 13:11 88 18 99 07/27/18 13:09 89 18 99 07/27/18 09:00 Nasal Cannula 3.0 07/27/18 08:22 140 105/69 07/27/18 08:00 148 07/27/18 07:41 Nasal Cannula 2.0 28 07/27/18 07:41 97 Nasal Cannula 2.0 28 07/27/18 07:38 147 23 Nasal Cannula 2.0 28 07/27/18 05:00 149 20 98/80 (86) 07/27/18 04:53 97 Nasal Cannula 4.0 36 07/27/18 04:53 Nasal Cannula 4.0 36 07/27/18 04:30 145 20 112/82 (92) 07/27/18 04:00 147 07/27/18 04:00 98.6 149 20 118/80 (93) 07/27/18 01:42 20 119/93 (102) 07/27/18 00:05 145 07/27/18 00:00 98.4 115 18 125/85 (98) 96 07/26/18 23:18 157 106/74 07/26/18 21:30 120 23 141/90 (107) 96 07/26/18 21:24 120 141/90 07/26/18 21:00 Nasal Cannula 3.0 07/26/18 20:53 117 07/26/18 20:23 97 Nasal Cannula 4.0 36 07/26/18 20:23 Nasal Cannula 4.0 36 07/26/18 20:00 98.2 110 19 130/83 (99) 96 07/26/18 16:19 91 07/26/18 16:00 97.9 116 20 132/81 (98) 94 07/26/18 15:41 104 126/79 Intake and Output 07/26/18 07/27/18 19:00 07:00 Intake Total 190.33 ml Output Total 800 ml 760 ml Balance -800 ml -569.67 ml IV Total 190.33 ml Output Urine Total 800 ml 760 ml Laboratory Tests 07/27/18 05:15: White Blood Count 19.6H, Red Blood Count 3.73L, Hemoglobin 12.9L, Hematocrit 37.6L, Mean Corpuscular Volume 101H, Mean Corpuscular Hemoglobin 34.6H, Mean Corpuscular Hemoglobin Concent 34.3, Red Cell Distribution Width 13.2, Platelet Count 595H, Mean Platelet Volume 6.6, Neutrophils (%) (Auto) , Lymphocytes (%) ( Auto) , Monocytes (%) (Auto) , Eosinophils (%) (Auto) , Basophils (%) (Auto) , Differential Total Cells Counted 100, Neutrophils % (Manual) 81H, Lymphocytes % (Manual) 8L, Monocytes % (Manual) 3, Eosinophils % (Manual) 3, Basophils % ( Manual) 0, Band Neutrophils 5, Platelet Estimate IncreasedH, Platelet Morphology Normal, Macrocytosis 1+, Prothrombin Time 11.4, Prothromb Time International Ratio 1.1, Activated Partial Thromboplast Time 29, Sodium Level 139, Potassium Level 4.2, Chloride Level 105, Carbon Dioxide Level 22, Anion Gap 13, Blood Urea Nitrogen 25H, Creatinine 0.8, Estimat Glomerular Filtration Rate > 60, Glucose Level 142H, Calcium Level 8.6, Phosphorus Level 3.3, Magnesium Level 2.5H, Total Bilirubin 0.4, Aspartate Amino Transf (AST/SGOT) 172H, Alanine Aminotransferase (ALT/SGPT) 229H, Alkaline Phosphatase 153H, Total Protein 8.7H, Albumin 2.1L, Globulin 6.6, Albumin/Globulin Ratio 0.3L, Lipase 653H Height (Feet): 5 Height (Inches): 8.00 Weight (Pounds): 159 Objective Physical Exam General Appearance: A+O x3, NAD, ++ asterixis HEENT: normocephalic, atraumatic Neck: non-tender, normal alignment Respiratory/Chest: chest wall non-tender, lungs clear Cardiovascular/Chest: normal peripheral pulses, normal rate Abdomen: normal bowel sounds, non tender.++PEG Extremities: normal range of motion Guy Salazar MD Jul 27, 2018 14:32
--- NOTE | 2018-07-27 14:43 | Pulmonolgy Critical Care Note ---
Critical Care - Asmt/Plan Problems: (1) Respiratory disorder with ventilator dependence (2) Gangrenous cholecystitis (3) S/P cholecystectomy (4) Abnormal LFTs (5) Cholecystitis, acute (6) Hepatitis C (7) Alcoholic pancreatitis (8) Pancreatitis, acute (9) Alcohol abuse (10) Fatty liver (11) Tobacco use (12) Blood loss anemia (13) Pneumonia (14) PEG (percutaneous endoscopic gastrostomy) status (15) Paroxysmal atrial fibrillation with rapid ventricular response Assessment/Plan: Optimize pulmonary hygiene/mobilize as tolerated Titrate down FiO2 to keep SaO2 > 90% D/C DUOnebs, change to PRN Atrovent and Levalbuterol Abx (Jair) + Claudia per ID, monitor WCt and Cx's F/U GI and surgery recs To start TF's today and then D/C TPN Amio gtt per cards, monitor rhythm Montor volumes and renal function DVT Px: Hep SQ FC CCT 35 Critical Care - Objective Last 24 Hour Vital Signs Date Time Temp Pulse Resp B/P (MAP) Pulse Ox O2 Delivery O2 Flow Rate FiO2 07/27/18 13:35 98.6 07/27/18 13:11 88 18 99 07/27/18 13:09 89 18 99 07/27/18 09:00 Nasal Cannula 3.0 07/27/18 08:22 140 105/69 07/27/18 08:00 148 07/27/18 07:41 Nasal Cannula 2.0 28 07/27/18 07:41 97 Nasal Cannula 2.0 28 07/27/18 07:38 147 23 Nasal Cannula 2.0 28 07/27/18 05:00 149 20 98/80 (86) 07/27/18 04:53 97 Nasal Cannula 4.0 36 07/27/18 04:53 Nasal Cannula 4.0 36 07/27/18 04:30 145 20 112/82 (92) 07/27/18 04:00 147 07/27/18 04:00 98.6 149 20 118/80 (93) 07/27/18 01:42 20 119/93 (102) 07/27/18 00:05 145 07/27/18 00:00 98.4 115 18 125/85 (98) 96 07/26/18 23:18 157 106/74 07/26/18 21:30 120 23 141/90 (107) 96 07/26/18 21:24 120 141/90 07/26/18 21:00 Nasal Cannula 3.0 07/26/18 20:53 117 07/26/18 20:23 97 Nasal Cannula 4.0 36 07/26/18 20:23 Nasal Cannula 4.0 36 07/26/18 20:00 98.2 110 19 130/83 (99) 96 07/26/18 16:19 91 07/26/18 16:00 97.9 116 20 132/81 (98) 94 07/26/18 15:41 104 126/79 Status: somnolent Condition: improving HEENT: atraumatic, normocephalic Lungs: rhonchi Heart: HR/BP stable Abdomen: soft, non-tender, active bowel sounds, other - GT dressed JUNE Extremities: no C/C/E Accucheck: 118 Blood Sugars: BS controlled Critical Care - Subjective ROS Limited/Unobtainable: Yes ICU Day: 2 Intubation Day: N/A Interval Events: Went into AFcRVR ON tx'd to ICU on an Amio gtt back in NSR Now S/P PEG, about to start TF's 94% on RA, WCt inc No cough, no SOB, no F/C Condition: stable IV Access: PICC EKG Rhythm: Sinus Rhythm FI02: 28 Vent Support Breath Rate: 14 Vent Support Mode: CPAP Vent Tidal Volume: 500 Sputum Amount: None PEEP: 5.0 PIP: 15 Secretions: No Fluids: SLIV Drips: Amio, TPN Tube Feeding Amount: 0 I&O: Intake and Output 07/26/18 07/27/18 19:00 07:00 Intake Total 190.33 ml Output Total 800 ml 760 ml Balance -800 ml -569.67 ml IV Total 190.33 ml Output Urine Total 800 ml 760 ml Subjective: No cough, no SOB, no wheezing, no F/C Pain well controlled CXR: Dec PVC, R and PH inf/atx ET-Tube: 8.0 ET Position: 24 Labs: Laboratory Tests Test 07/27/18 05:15 White Blood Count 19.6 K/UL (4.8-10.8) H Red Blood Count 3.73 M/UL (4.70-6.10) L Hemoglobin 12.9 G/DL (14.2-18.0) L Hematocrit 37.6 % (42.0-52.0) L Mean Corpuscular Volume 101 FL (80-99) H Mean Corpuscular Hemoglobin 34.6 PG (27.0-31.0) H Mean Corpuscular Hemoglobin Concent 34.3 G/DL (32.0-36.0) Red Cell Distribution Width 13.2 % (11.6-14.8) Platelet Count 595 K/UL (150-450) H Mean Platelet Volume 6.6 FL (6.5-10.1) Neutrophils (%) (Auto) % (45.0-75.0) Lymphocytes (%) (Auto) % (20.0-45.0) Monocytes (%) (Auto) % (1.0-10.0) Eosinophils (%) (Auto) % (0.0-3.0) Basophils (%) (Auto) % (0.0-2.0) Differential Total Cells Counted 100 Neutrophils % (Manual) 81 % (45-75) H Lymphocytes % (Manual) 8 % (20-45) L Monocytes % (Manual) 3 % (1-10) Eosinophils % (Manual) 3 % (0-3) Basophils % (Manual) 0 % (0-2) Band Neutrophils 5 % (0-8) Platelet Estimate Increased H Platelet Morphology Normal Macrocytosis 1+ Prothrombin Time 11.4 SEC (9.30-11.50) Prothromb Time International Ratio 1.1 (0.9-1.1) Activated Partial Thromboplast Time 29 SEC (23-33) Sodium Level 139 MMOL/L (136-145) Potassium Level 4.2 MMOL/L (3.5-5.1) Chloride Level 105 MMOL/L (98-107) Carbon Dioxide Level 22 MMOL/L (21-32) Anion Gap 13 mmol/L (5-15) Blood Urea Nitrogen 25 mg/dL (7-18) H Creatinine 0.8 MG/DL (0.55-1.30) Estimat Glomerular Filtration Rate > 60 mL/min (>60) Glucose Level 142 MG/DL (74-106) H Calcium Level 8.6 MG/DL (8.5-10.1) Phosphorus Level 3.3 MG/DL (2.5-4.9) Magnesium Level 2.5 MG/DL (1.8-2.4) H Total Bilirubin 0.4 MG/DL (0.2-1.0) Aspartate Amino Transf (AST/SGOT) 172 U/L (15-37) H Alanine Aminotransferase (ALT/SGPT) 229 U/L (12-78) H Alkaline Phosphatase 153 U/L (46-116) H Total Protein 8.7 G/DL (6.4-8.2) H Albumin 2.1 G/DL (3.4-5.0) L Globulin 6.6 g/dL Albumin/Globulin Ratio 0.3 (1.0-2.7) L Lipase 653 U/L (73-393) H Trenton Ladd MD Jul 27, 2018 14:43
[2018-07-27] MEDS ORDERED: Levalbuterol Inh UD 1.25mg/0.5ml HHN PRN (14:45)
[2018-07-27] MEDS ORDERED: Ipratropium 0.02% Inh Soln 2.5ml UD HHN PRN (14:45)
--- NOTE | 2018-07-27 15:00 | NUR ---
NURSE NOTES: Discontinued TPN and started GTF Glucerna 1.5@20cc/hr, goal is 60cc/hr. 60cc free water flushed.placement confirmed by auscultation. Turned and repositioned.
[2018-07-27] MEDS: Micafungin 100 MG in NS 110 ML IVPB SCH (16:20)
--- NOTE | 2018-07-27 16:30 | NUR ---
NURSE NOTES: Held Lopressor 5mg/5ml IVP due to decreased BP=86/72.
--- NOTE | 2018-07-27 16:33 | NUR ---
NURSE NOTES: Turned and positioned. x2 pasty brown BM. Cholecystectomy surgical dressing changed and GT dressing changed. ABD binder placed.
--- NOTE | 2018-07-27 17:15 | Procedure Note ---
DATE OF PROCEDURE: 07/27/2018 SURGEON: Toñito Yip M.D. PROCEDURE: Upper endoscopy with PEG placement. ANESTHESIA: Per Dr. Gregorio. INSTRUMENT: Olympus adult flexible upper endoscope. INDICATION: Dysphagia. REASON FOR PROCEDURE: The procedure, risks, benefits, and possible consequences, including hemorrhage, aspiration, perforation and infection, and alternative treatments, were explained to the patient/legal guardian by Dr. Toñito Yip and the patient/legal guardian understood and accepted these risks. PROCEDURE IN DETAIL: After informed consent was obtained and the patient was adequately sedated, the Olympus upper endoscope was advanced from mouth into the second portion of the duodenum and retroflexion was performed in the stomach. The patient had evidence of diffuse gastritis. Then, under endoscopic guidance under sterile condition, a 20-Dominican pull type of G-tube was successfully placed in the epigastric area. The distance from the tip of the tube to skin was about 2.5 cm in size. The patient tolerated procedure very well without complication. SUMMARY OF FINDINGS: 1. Gastritis. 2. Status post successful PEG placement. RECOMMENDATIONS: 1. Abdominal binder. 2. Elevate the head of the bed all times. 3. G-tube flush. 4. G-tube care. 5. Start tube feeding later today. 6. The patient currently on antibiotics that we will continue. I want to thank, Dr. Kinsey for this kind referral. Toñito Yip M.D. DR: Kenisha JOB#: [id number] CC: Maxx Kinsey M.D.; Fax#: [phone]
--- NOTE | 2018-07-27 17:40 | NUR ---
NURSE NOTES: bs=88, no coverage given per sliding scale. no acute distress noted. resting in bed with eyes closed comfortably.
--- NOTE | 2018-07-27 18:17 | NUR ---
NURSE NOTES: Received orders to d/c amiodarone drip and start amiodarone PO 200mg QD. First dose starts 0900 tomorrow.
--- NOTE | 2018-07-27 18:37 | NUR ---
CASE MANAGEMENT: REVIEW SI: ALCOHOLIC PANCREATITIS . ASPIRATION PNEUMONIA . ACUTE PURULENT GANGRENOUS CHOLECYSTITIS . EGD w/PEG PLACEMENT 07/27 LAPAROSCOPIC CONVERTED TO OPEN CHOLECYSTECTOMY 07/12 T 98.9 HR 149 RR 23 BP 90/58 SAT 99% NC/4L WBC 19.6 LIPASE 653 IS: AMIODARONE IV Q24HR MEROPENEM IV Q8HR PROTONIX IV Q12HR GT FEEDING GLUCERNA 1.5 @ 60ML/HR ICU STATUS DCP: PATIENT IS FROM HOME
--- NOTE | 2018-07-27 19:16 | NUR ---
HAND-OFF: Report given to JAVIER Bañuelos using SBAR.
--- NOTE | 2018-07-27 19:32 | Cardiology Progress Note ---
Assessment/Plan Assessment/Plan The patient is seen and examined, full consult note is dictated. Objective Last 24 Hour Vital Signs Date Time Temp Pulse Resp B/P (MAP) Pulse Ox O2 Delivery O2 Flow Rate FiO2 07/27/18 16:00 98.9 99 20 109/63 (78) 07/27/18 16:00 96 07/27/18 15:00 98 20 90/58 (69) 07/27/18 15:00 98 90/58 07/27/18 14:00 95 19 117/79 (92) 07/27/18 13:35 98.6 07/27/18 13:11 88 18 99 07/27/18 13:09 89 18 99 07/27/18 13:00 95 20 121/80 (94) 07/27/18 12:00 85 07/27/18 12:00 98.6 93 20 120/74 (89) 07/27/18 11:00 89 20 102/71 (81) 07/27/18 10:00 88 20 116/74 (88) 07/27/18 09:00 Nasal Cannula 3.0 07/27/18 08:22 140 105/69 07/27/18 08:00 148 07/27/18 08:00 82 20 105/69 (81) 07/27/18 07:41 Nasal Cannula 2.0 28 07/27/18 07:41 97 Nasal Cannula 2.0 28 07/27/18 07:38 147 23 Nasal Cannula 2.0 28 07/27/18 07:00 98.9 146 20 106/75 (85) 07/27/18 05:00 149 20 98/80 (86) 07/27/18 04:53 97 Nasal Cannula 4.0 36 07/27/18 04:53 Nasal Cannula 4.0 36 07/27/18 04:30 145 20 112/82 (92) 07/27/18 04:00 147 07/27/18 04:00 98.6 149 20 118/80 (93) 07/27/18 01:42 20 119/93 (102) 07/27/18 00:05 145 07/27/18 00:00 98.4 115 18 125/85 (98) 96 07/26/18 23:18 157 106/74 07/26/18 21:30 120 23 141/90 (107) 96 07/26/18 21:24 120 141/90 07/26/18 21:00 Nasal Cannula 3.0 07/26/18 20:53 117 07/26/18 20:23 97 Nasal Cannula 4.0 36 07/26/18 20:23 Nasal Cannula 4.0 36 07/26/18 20:00 98.2 110 19 130/83 (99) 96 Intake and Output 07/26/18 07/27/18 19:00 07:00 Intake Total 223.66 ml Output Total 800 ml 760 ml Balance -800 ml -536.34 ml IV Total 223.66 ml Output Urine Total 800 ml 760 ml Laboratory Tests Test 07/27/18 05:15 White Blood Count 19.6 K/UL (4.8-10.8) H Red Blood Count 3.73 M/UL (4.70-6.10) L Hemoglobin 12.9 G/DL (14.2-18.0) L Hematocrit 37.6 % (42.0-52.0) L Mean Corpuscular Volume 101 FL (80-99) H Mean Corpuscular Hemoglobin 34.6 PG (27.0-31.0) H Mean Corpuscular Hemoglobin Concent 34.3 G/DL (32.0-36.0) Red Cell Distribution Width 13.2 % (11.6-14.8) Platelet Count 595 K/UL (150-450) H Mean Platelet Volume 6.6 FL (6.5-10.1) Neutrophils (%) (Auto) % (45.0-75.0) Lymphocytes (%) (Auto) % (20.0-45.0) Monocytes (%) (Auto) % (1.0-10.0) Eosinophils (%) (Auto) % (0.0-3.0) Basophils (%) (Auto) % (0.0-2.0) Differential Total Cells Counted 100 Neutrophils % (Manual) 81 % (45-75) H Lymphocytes % (Manual) 8 % (20-45) L Monocytes % (Manual) 3 % (1-10) Eosinophils % (Manual) 3 % (0-3) Basophils % (Manual) 0 % (0-2) Band Neutrophils 5 % (0-8) Platelet Estimate Increased H Platelet Morphology Normal Macrocytosis 1+ Prothrombin Time 11.4 SEC (9.30-11.50) Prothromb Time International Ratio 1.1 (0.9-1.1) Activated Partial Thromboplast Time 29 SEC (23-33) Sodium Level 139 MMOL/L (136-145) Potassium Level 4.2 MMOL/L (3.5-5.1) Chloride Level 105 MMOL/L (98-107) Carbon Dioxide Level 22 MMOL/L (21-32) Anion Gap 13 mmol/L (5-15) Blood Urea Nitrogen 25 mg/dL (7-18) H Creatinine 0.8 MG/DL (0.55-1.30) Estimat Glomerular Filtration Rate > 60 mL/min (>60) Glucose Level 142 MG/DL (74-106) H Calcium Level 8.6 MG/DL (8.5-10.1) Phosphorus Level 3.3 MG/DL (2.5-4.9) Magnesium Level 2.5 MG/DL (1.8-2.4) H Total Bilirubin 0.4 MG/DL (0.2-1.0) Aspartate Amino Transf (AST/SGOT) 172 U/L (15-37) H Alanine Aminotransferase (ALT/SGPT) 229 U/L (12-78) H Alkaline Phosphatase 153 U/L (46-116) H Total Protein 8.7 G/DL (6.4-8.2) H Albumin 2.1 G/DL (3.4-5.0) L Globulin 6.6 g/dL Albumin/Globulin Ratio 0.3 (1.0-2.7) L Lipase 653 U/L (73-393) H Luis Patel MD Jul 27, 2018 19:32
[2018-07-27] MEDS ORDERED: FAT EMULSION 20% IV SCH (20:00)
[2018-07-27] MEDS ORDERED: TPN IV SCH (20:00)
--- NOTE | 2018-07-27 20:00 | NUR ---
NURSE NOTES: pt awake and alert no c/o pain no acute resp distress noted tolerated tube feeding no residual feeding >30 cc /hr dr rodriguez in seen pt with order made had bm clean and bath given reposition and suction
[2018-07-27] MEDS: Dyna-Hex 2% Top Sol 2oz TOPIC SCH (20:43)
--- NOTE | 2018-07-27 22:00 | NUR ---
NURSE NOTES: reposition and suction iv tko
[2018-07-27] MEDS: Propranolol 10mg tab GT SCH (22:17)
[2018-07-28] VITALS (22 sets, daily range): BP systolic 100–141; BP diastolic 60–93
--- NOTE | 2018-07-28 01:49 | NUR ---
NURSE NOTES: bs 100 no coverage had bm clean and bed bath reposition and suction
[2018-07-28] MEDS ORDERED: Amiodarone 900 MG in D5W 500ml 482 ML IV SCH (03:00)
--- NOTE | 2018-07-28 04:00 | NUR ---
NURSE NOTES: complete bed bath reposition and suction and wound dressing change
[2018-07-28] MEDS: NovoLOG Insulin Flexpen SUBQ SCH ×4 (06:00→17:18)
[2018-07-28] MEDS: Propranolol 10mg tab GT SCH ×3 (06:14→17:16)
[2018-07-28 06:59] LABS: BASOPHILS % (AUTO) 0.7 % (0.0-2.0); EOSINOPHILS % (AUTO) 5.2 % (0.0-3.0); HEMATOCRIT 37.5 % (42.0-52.0); LYMPHOCYTES % (AUTO) 7.7 % (20.0-45.0); MEAN CORPUSCULAR VOLUME 99 FL (80-99); NEUTROPHILS % (AUTO) 81.4 % (45.0-75.0); PLATELET COUNT 599 K/UL (150-450); RED BLOOD COUNT 3.79 M/UL (4.70-6.10); RED CELL DISTRIBUTION WIDTH 12.9 % (11.6-14.8)
[2018-07-28 07:04] LABS: ALANINE AMINOTRANSFERASE 282 U/L (12-78); ALBUMIN 2.1 G/DL (3.4-5.0); ALBUMIN/GLOBULIN RATIO 0.3 (1.0-2.7); ALKALINE PHOSPHATASE 162 U/L (46-116); AMYLASE 142 U/L (25-115); ANION GAP 6 mmol/L (5-15); ASPARTATE AMINO TRANSFERASE 222 U/L (15-37); BILIRUBIN,TOTAL 0.5 MG/DL (0.2-1.0); BLOOD UREA NITROGEN 27 mg/dL (7-18); CALCIUM 9.2 MG/DL (8.5-10.1); CARBON DIOXIDE 26 MMOL/L (21-32); CHLORIDE 108 MMOL/L (98-107); CREATININE 0.8 MG/DL (0.55-1.30); POTASSIUM 4.3 MMOL/L (3.5-5.1); SODIUM 140 MMOL/L (136-145)
--- NOTE | 2018-07-28 07:07 | NUR ---
NURSE NOTES: Received pt from JAVIER Bañuelos. pt is alert and awake in bed. Comfortably watching television, denies pain at this time.A/Ox1 baseline. GTF running Glucerna 1.5@40cc/hr, no residual, HOB 35 degrees. Abd binder in place. surgical drsng c/d/i. JUNE draining dark serious. FC draining annalisa colored urine to gravity. Reinforced pt to stay in bed. SCD's in place. Yellow socks and fall risk band in place. Pt is sinus tachy on cardiac rehabilitation specialist with HR 108. Pt is on RA, SPO2 97%. Breathing even and unlabored. chayito heard quinten. b/s. Bed locked, alarmed and in lowest position. Will continue plan of care.
--- NOTE | 2018-07-28 07:23 | NUR ---
HAND-OFF: Report given to bev william using sbar.
[2018-07-28] MEDS: Pantoprazole Inj IVP SCH ×2 (08:41→20:25)
[2018-07-28] MEDS: Heparin 5000 units/ml inj SUBQ SCH ×2 (08:41→21:00)
--- NOTE | 2018-07-28 08:57 | NUR ---
NURSE NOTES: Pt had x1 loose bm, kept dry and clean. partial linen changed.
[2018-07-28] MEDS ORDERED: Amiodarone 200mg tab ORAL SCH (09:00)
--- NOTE | 2018-07-28 09:47 | NUR ---
NURSE NOTES: Notified Dr. Patel regarding of increasing HR, now 115 bpm. Received orders to change Propanolol to 40mg BID GT. read back given and verified. Pt has orders to tx to tele, waiting for bed.
--- NOTE | 2018-07-28 11:02 | General Progress Note ---
Assessment/Plan Assessment/Plan #Sepsis #Acute purulent gangrenous cholecystitis. #klebsiella cholecystitis #acute Hypoxic respiratory failure #Acute Metabolic Encephalopathy - due to alcohol withdrawal and sepsis - meropenem, Diflucan - bcx x 2 ngtd - s/p ercp 07/12 - gen surg following s/p lap jocelyn converted to open jocelyn 07/12 - extubated on 07/16/18 - off o2 ncl - pulm following appreciated - pain control - appreciate surg recs - tpn -NG tube removed -Awaiting PEG -PT ordered #Acute Blood Loss Anemia - due to recent surgery - no overt bleeding noted currently - hgb 6.8 07/15, transfused 2U, 9.7 (07/16) - stable #Pleural Effusions - b/l - per mrcp - stable - pulm consult appreciated #Alcohol Pancreatitis #Intractable abdominal pain #intractable nausea/vomiting #Transaminitis #Alcohol Hepatitis #Alcohol withdrawals #Fatty Liver Disease #Hepatitis C - LFTs 446/532 - Lipase 687 - due to alcohol abuse - INR 1.0 - discriminant function, 4.5 , no need for steroids - US abd completed and reviewed, showing fatty liver disease. GS present, no obstruction noted - ppi - PRN antiemetics, zofran prn - Banana bag - close lab monitoring - IVF - monitor carefully for withdrawals - tube feeds held due to worsening pancreatitis - TPN - Per GI, will need ERCP in 6-8 weeks for stent removal #Failure to thrive - due to alcohol withdrawals and the above - alcoholic pancreatitis - fluids #Alcohol Abuse - educated on cessation for 15 mins - patient states he understands and will try to quit - RN notified to monitor carefully with withdrawals - prn ativan - ciwa #Uncontrolled HTN and tachycardia overnight -all oral BP meds held for now -continue metoprolol IV q6h -transferred to ICU, on amiodarone drip #Tobacco abuse - smokes 1ppd - educated on smoking cessation for over 15 mins, states he understands the risks of smoking and will try to quit #Dysphagia -seen by [facility] -strict NPO recommended at this time -PEG placement yesterday, started on tube feeds diet: continue TPN Subjective Date patient seen: Jul 28, 2018 Time patient seen: 11:00 ROS Limited/Unobtainable: Yes Constitutional: Denies: fever Cardiovascular: Denies: chest pain Respiratory: Denies: cough, shortness of breath Gastrointestinal/Abdominal: Denies: abdominal pain Allergies: Coded Allergies: No Known Allergies (Unverified , 06/01/16) Subjective Medicine follow up for multiple medical problems including acute gangrenous cholecystitis, acute hypoxic respiratory failure, acute encephalopathy Patient remains in sinus rhythm. Mentating well. Objective Last 24 Hour Vital Signs Date Time Temp Pulse Resp B/P (MAP) Pulse Ox O2 Delivery O2 Flow Rate FiO2 07/28/18 10:00 111 20 115/76 (89) 96 07/28/18 09:00 115 20 120/78 (92) 96 07/28/18 08:00 115 07/28/18 07:24 Nasal Cannula 3.0 32 07/28/18 07:24 98 Nasal Cannula 3.0 32 07/28/18 07:24 121 24 Nasal Cannula 3.0 32 07/28/18 07:03 100 20 100/60 (73) 95 07/28/18 06:14 101 100/60 07/28/18 06:00 100 20 100/60 (73) 95 07/28/18 05:00 96 20 105/93 (97) 95 07/28/18 04:00 96 07/28/18 04:00 98.4 98 20 109/64 (79) 95 07/28/18 03:00 100 20 112/83 (93) 95 07/28/18 02:00 87 20 141/93 (109) 95 07/28/18 01:00 93 20 117/65 (82) 95 07/28/18 00:00 Nasal Cannula 3.0 07/28/18 00:00 93 07/28/18 00:00 95.0 92 20 107/83 (91) 96 07/27/18 23:00 111 20 117/77 (90) 95 07/27/18 22:17 111 112/73 07/27/18 22:00 110 20 112/85 (94) 07/27/18 21:00 Nasal Cannula 3.0 07/27/18 21:00 111 20 113/65 (81) 07/27/18 20:03 Nasal Cannula 3.0 32 07/27/18 20:02 97 Nasal Cannula 3.0 32 07/27/18 20:02 103 23 Nasal Cannula 3.0 32 07/27/18 20:00 104 07/27/18 20:00 98.5 99 20 110/75 (87) 07/27/18 20:00 Nasal Cannula 3.0 07/27/18 16:00 98.9 99 20 109/63 (78) 07/27/18 16:00 96 07/27/18 15:00 98 20 90/58 (69) 07/27/18 15:00 98 90/58 07/27/18 14:00 95 19 117/79 (92) 07/27/18 13:35 98.6 07/27/18 13:11 88 18 99 07/27/18 13:09 89 18 99 07/27/18 13:00 95 20 121/80 (94) 07/27/18 12:00 85 07/27/18 12:00 98.6 93 20 120/74 (89) 07/27/18 11:00 89 20 102/71 (81) Intake and Output 07/27/18 07/28/18 19:00 07:00 Intake Total 373.27 ml 465 ml Output Total 550 ml 590 ml Balance -176.73 ml -125 ml Free Water 60 ml IV Total 233.27 ml 100 ml Tube Feeding 80 ml 365 ml Output Urine Total 550 ml 590 ml # Bowel Movements 2 Laboratory Tests 07/28/18 06:10: White Blood Count 17.0H, Red Blood Count 3.79L, Hemoglobin 13.0L, Hematocrit 37.5L, Mean Corpuscular Volume 99, Mean Corpuscular Hemoglobin 34.2H, Mean Corpuscular Hemoglobin Concent 34.5, Red Cell Distribution Width 12.9, Platelet Count 599H, Mean Platelet Volume 7.0, Neutrophils (%) (Auto) 81.4H, Lymphocytes (%) (Auto) 7.7L, Monocytes (%) (Auto) 5.0, Eosinophils (%) (Auto) 5.2H, Basophils (%) (Auto) 0.7, Sodium Level 140, Potassium Level 4.3, Chloride Level 108H, Carbon Dioxide Level 26, Anion Gap 6, Blood Urea Nitrogen 27H, Creatinine 0.8, Estimat Glomerular Filtration Rate > 60, Glucose Level 105, Calcium Level 9.2, Total Bilirubin 0.5, Aspartate Amino Transf (AST/SGOT) 222H, Alanine Aminotransferase (ALT/SGPT) 282H, Alkaline Phosphatase 162H, Total Protein 8.4H , Albumin 2.1L, Globulin 6.3, Albumin/Globulin Ratio 0.3L, Amylase Level 142H, Lipase 975H Height (Feet): 5 Height (Inches): 8.00 Weight (Pounds): 159 General Appearance: alert Cardiovascular: normal rate, regular rhythm Respiratory/Chest: lungs clear Abdomen: non tender, soft Tomás Cruz MD Jul 28, 2018 11:02
--- NOTE | 2018-07-28 12:10 | NUR ---
NURSE NOTES: Received report from Sarah. pt in bed awake, no c/o pain. BP 120/ 79, HR 85 RR 22 02sat 94% on R.A. TF running at 20ml/hr. JUNE drain at RT ABD. active ROM all extremities. bed alarm on, call light in reach. will continue to monitor pt. order in for transfer to tele. awaiting bed.
--- NOTE | 2018-07-28 12:22 | NUR ---
HAND-OFF: Report given to JAVIER Torres. patient HR is 89, NSR after propranolol 40mg GT. Frequent reinforcement to stay in bed and reorientation needed. No s/sx of acute distress noted. Endorsed continuity of care.
--- NOTE | 2018-07-28 14:09 | NUR ---
NURSE NOTES: Pt kept dry and clean. partial linen changed. no residual. T.F at 20ml/hr. pt tolerating well
--- NOTE | 2018-07-28 15:00 | NUR ---
NURSE NOTES: pt requires reminding, not to remove pulse ox, blankets and pillows. replaced feet back in bed, pt likes to hang them over the side rail.
--- NOTE | 2018-07-28 16:27 | Infectious Diseases Prog Note ---
Assessment/Plan Assessment/Plan ASSESSMENT AND PLAN: 1. sepsis, klebsiella cholecystitis, enterobacter pna, leukocytosis, fevers, sirs, fungal uti, fungemia risk - meropenem and diflcuan - day # 9 combination - monitor labs, wbc, temps and chest x-ray - clinically improved, fevers resolved, leukocytosis persists, ? reactive leukocytosis 3. Smoking use. 4. Anemia. 5. Thrombocytosis. 6. No history of diabetes, hypertension, but he is on Norvasc. 7. No known allergies. 8. Social history positive for smoking and alcohol use. No history of intravenous drug abuse. 9. MAR was noted. 10. Case discussed with RN. 11. Continue treatment per primary consultants. 12. Case discussed at length the ICU nurse, the patient currently in ICU. 13. Continue skin care protocol and pulmonary treatments for now. Subjective Constitutional: Reports: other - seems confused ; Denies: fever HEENT: Denies: congestion Respiratory: Denies: shortness of breath Cardiovascular: Denies: chest pain Gastrointestinal/Abdominal: Denies: nausea, vomiting, diarrhea Genitourinary: Reports: other - + melchor Neurologic: Denies: headache Psychiatric: Denies: depression Skin: Denies: rash Hematologic: Denies: bleeding Musculoskeletal: Denies: pain Allergies: Coded Allergies: No Known Allergies (Unverified , 06/01/16) Objective Vital Signs Last 24 Hour Vital Signs Date Time Temp Pulse Resp B/P (MAP) Pulse Ox O2 Delivery O2 Flow Rate FiO2 07/28/18 13:00 88 22 123/86 (98) 94 07/28/18 12:00 89 07/28/18 12:00 Room Air 07/28/18 12:00 98.6 89 23 118/78 (91) 96 07/28/18 11:35 112 111/72 07/28/18 11:00 112 20 111/72 (85) 96 07/28/18 10:00 111 20 115/76 (89) 96 07/28/18 09:00 115 20 120/78 (92) 96 07/28/18 08:00 115 20 108/68 (81) 96 07/28/18 08:00 115 07/28/18 07:24 Nasal Cannula 3.0 32 07/28/18 07:24 98 Nasal Cannula 3.0 32 07/28/18 07:24 121 24 Nasal Cannula 3.0 32 07/28/18 07:03 100 20 100/60 (73) 95 07/28/18 06:14 101 100/60 07/28/18 06:00 100 20 100/60 (73) 95 07/28/18 05:00 96 20 105/93 (97) 95 07/28/18 04:00 96 07/28/18 04:00 98.4 98 20 109/64 (79) 95 07/28/18 03:00 100 20 112/83 (93) 95 07/28/18 02:00 87 20 141/93 (109) 95 07/28/18 01:00 93 20 117/65 (82) 95 07/28/18 00:00 Nasal Cannula 3.0 07/28/18 00:00 93 07/28/18 00:00 95.0 92 20 107/83 (91) 96 07/27/18 23:00 111 20 117/77 (90) 95 07/27/18 22:17 111 112/73 07/27/18 22:00 110 20 112/85 (94) 07/27/18 21:00 Nasal Cannula 3.0 07/27/18 21:00 111 20 113/65 (81) 07/27/18 20:03 Nasal Cannula 3.0 32 07/27/18 20:02 97 Nasal Cannula 3.0 32 07/27/18 20:02 103 23 Nasal Cannula 3.0 32 07/27/18 20:00 104 07/27/18 20:00 98.5 99 20 110/75 (87) 07/27/18 20:00 Nasal Cannula 3.0 Height (Feet): 5 Height (Inches): 8.00 Weight (Pounds): 159 General Appearance: no acute distress, other - no pressors HEENT: normocephalic, atraumatic, anicteric Respiratory/Chest: crackles/rales, rhonchi - bilaterally Cardiovascular: normal rate, regular rhythm, no gallop/murmur, no JVD Abdomen: normal bowel sounds, soft, non tender, no organomegaly, non distended Genitourinary: other - + melchor Extremities: no cyanosis Skin: no rash 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 Apparent elevation of the right hemidiaphragm is again noted. The left lung demonstrates a very faint opacity in the left midlung which is not evident previously. However, interstitial congestion in the left lung has improved. Impression: Persistent right-sided pleural effusion and fairly extensive parenchymal infiltrate or edema Improved left lung interstitial congestion. Focal patchy left lung abnormality was not evident previously, however, and could represent a small area of infiltrate Chest x-ray - 07/22/18 - COMPARISON: Chest x-ray 07/19/18 837 FINDINGS: Lungs: Increasing opacities of the right lung. Pleural space: Slightly increasing right pleural effusion. No pneumothorax. Heart: Unremarkable. No cardiomegaly. Mediastinum: Unremarkable. Bones/joints: Unremarkable. Tubes, lines and devices: Left PICC line tip appears further advanced into the right atrium. NG tube traverses diaphragm, tip is not seen. Upper abdomen: Midepigastric gastric surgical clips. IMPRESSION: 1. Left PICC line tip appears further advanced into the right atrium. 2. Increasing opacities of the right lung. 3. Slightly increasing right pleural effusion. 07/24/18 - chest x-ray - A single view chest radiograph was obtained. Findings: Hazy opacity at the right lung base may be a pleural effusion. Heart is enlarged. There is suggestion of mild interstitial edema. PICC line is present on the left. IMPRESSION: Suspected mild interstitial edema and a small right pleural effusion. Chest x-ray - 07/27/18- Comparison: 07/26/2018 A single view chest radiograph was obtained. Findings: Patchy infiltrate noted in the right lung. There is less right pleural effusion present. Heart is mildly enlarged. PICC line is noted. IMPRESSION: Diminished right pleural effusion which may have 5 decreased or shifted. Patchy right basal and perihilar infiltrate noted Microbiology Date/Time Source Procedure Growth Status 07/18/18 20:25 Blood Blood Culture - Final NO GROWTH AFTER 5 DAYS Complete 07/12/18 20:50 Peritoneal Fluid Gram Stain - Final Complete 07/12/18 20:50 Peritoneal Fluid Aerobic Culture - Final NO GROWTH Complete 07/12/18 20:50 Peritoneal Fluid Anaerobic Culture - Final NO GROWTH AFTER 5 DAYS Complete 2/2/19 14:45 Sputum Induced Gram Stain - Final Complete 07/21/18 14:45 Sputum Culture - Final Nery Albicans Usual Respiratory Carolyn Complete 07/21/18 04:00 Urine,Clean Catch Urine Culture - Final Yeast Species Complete Laboratory Tests Test 07/28/18 06:10 White Blood Count 17.0 K/UL (4.8-10.8) H Red Blood Count 3.79 M/UL (4.70-6.10) L Hemoglobin 13.0 G/DL (14.2-18.0) L Hematocrit 37.5 % (42.0-52.0) L Mean Corpuscular Volume 99 FL (80-99) Mean Corpuscular Hemoglobin 34.2 PG (27.0-31.0) H Mean Corpuscular Hemoglobin Concent 34.5 G/DL (32.0-36.0) Red Cell Distribution Width 12.9 % (11.6-14.8) Platelet Count 599 K/UL (150-450) H Mean Platelet Volume 7.0 FL (6.5-10.1) Neutrophils (%) (Auto) 81.4 % (45.0-75.0) H Lymphocytes (%) (Auto) 7.7 % (20.0-45.0) L Monocytes (%) (Auto) 5.0 % (1.0-10.0) Eosinophils (%) (Auto) 5.2 % (0.0-3.0) H Basophils (%) (Auto) 0.7 % (0.0-2.0) Sodium Level 140 MMOL/L (136-145) Potassium Level 4.3 MMOL/L (3.5-5.1) Chloride Level 108 MMOL/L (98-107) H Carbon Dioxide Level 26 MMOL/L (21-32) Anion Gap 6 mmol/L (5-15) Blood Urea Nitrogen 27 mg/dL (7-18) H Creatinine 0.8 MG/DL (0.55-1.30) Estimat Glomerular Filtration Rate > 60 mL/min (>60) Glucose Level 105 MG/DL (74-106) Calcium Level 9.2 MG/DL (8.5-10.1) Total Bilirubin 0.5 MG/DL (0.2-1.0) Aspartate Amino Transf (AST/SGOT) 222 U/L (15-37) H Alanine Aminotransferase (ALT/SGPT) 282 U/L (12-78) H Alkaline Phosphatase 162 U/L (46-116) H Total Protein 8.4 G/DL (6.4-8.2) H Albumin 2.1 G/DL (3.4-5.0) L Globulin 6.3 g/dL Albumin/Globulin Ratio 0.3 (1.0-2.7) L Amylase Level 142 U/L (25-115) H Lipase 975 U/L (73-393) H Current Medications Medications (Trade) Dose Ordered Sig/[place] Route PRN Reason Start Time Stop Time Status Last Admin Dose Admin Acetaminophen (Tylenol) 650 mg Q4H PRN RECTAL Prn for Temp >100.5 07/27/18 07:00 08/14/18 18:59 Al Hydroxide/Mg Hydroxide (Mylanta) 15 ml Q6H PRN NG DYSPEPSIA 07/27/18 07:00 08/11/18 12:59 Chlorhexidine Gluconate (Estrella-Hex 2%) 1 applic DAILY@1999 TOPIC 07/27/18 20:00 08/15/18 19:59 07/27/18 20:43 Dextrose (Dextrose 50%) 25 ml Q30M PRN IV Hypoglycemia 07/27/18 04:00 08/17/18 00:00 Dextrose (Dextrose 50%) 50 ml Q30M PRN IV hypoglycemia 07/27/18 04:00 08/17/18 00:00 Diphenhydramine HCl (Benadryl) 12.5 mg Q6H PRN IVP Itching/Pruritis 07/27/18 07:00 08/11/18 12:59 Heparin Sodium (Porcine) (Heparin 5000 units/ml) 5,000 units Q12HR SUBQ 07/27/18 09:00 08/02/18 08:59 07/28/18 08:41 Insulin Aspart (NovoLOG) No Dose Q6HR SUBQ 07/27/18 06:00 08/17/18 12:59 07/27/18 12:34 Ipratropium [place] (Atrovent) 500 mcg Q4H PRN HHN Shortness of Breath 07/27/18 14:45 08/01/18 14:44 Ketorolac Tromethamine (Toradol 30mg) 30 mg Q6H PRN IV Moderate Pain (Pain Scale 4-6) 07/27/18 04:15 07/31/18 21:59 07/27/18 13:05 Levalbuterol HCl (Xopenex) 0.63 mg Q4H PRN HHN SOB/wheezing 07/27/18 14:45 08/01/18 14:44 Magnesium Hydroxide (Mom) 30 ml BIDPRN PRN NG Constipation 07/27/18 13:00 08/24/18 12:59 Meropenem 1 gm/ Sodium Chloride 100 ml @ 200 mls/hr Q8HR IVPB 07/27/18 06:00 08/02/18 05:59 07/28/18 14:23 Micafungin Sodium 100 mg/Sodium Chloride 110 ml @ 110 mls/hr Q24H IVPB 07/27/18 16:00 08/03/18 15:59 07/27/18 16:20 Nicotine (Nicoderm) 1 patch Q24H TDERMAL 07/27/18 18:00 08/08/18 17:59 07/27/18 17:22 Ondansetron HCl (Zofran) 4 mg Q6H PRN IVP Nausea & Vomiting 07/27/18 07:00 08/01/18 12:59 Pantoprazole (Protonix) 40 mg EVERY 12 HOURS IVP 07/27/18 09:00 08/09/18 20:59 07/28/18 08:41 Propranolol HCl (Inderal) 40 mg BID GT 07/28/18 12:00 08/27/18 11:59 07/28/18 11:35 Tyler Madsen MD Jul 28, 2018 16:27
--- NOTE | 2018-07-28 16:53 | GI Progress Note ---
Assessment/Plan Problems: (1) Abnormal LFTs ICD Codes: R79.89 - Other specified abnormal findings of blood chemistry SNOMED: 355112898 (2) Cholecystitis, acute ICD Codes: K81.0 - Acute cholecystitis SNOMED: 62488355 (3) Hepatitis C ICD Codes: B19.20 - Unspecified viral hepatitis C without hepatic coma SNOMED: 73189782 (4) Fatty liver ICD Codes: K76.0 - Fatty (change of) liver, not elsewhere classified SNOMED: 634777244 (5) Alcoholic pancreatitis ICD Codes: K85.20 - Alcohol induced acute pancreatitis without necrosis or infection SNOMED: 710584204 (6) Pancreatitis, acute ICD Codes: K85.90 - Acute pancreatitis without necrosis or infection, unspecified SNOMED: 780645029 Status: progressing Status Narrative Discussed with Dr. Yip. Assessment/Plan SUMMARY OF FINDINGS: 1. 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 2. Status post ERCP with sphincterotomy, balloon assistance sludge and some pus extraction from the common bile duct and then stent placement. s/p open jocelyn, now in ICU with pancreatitis hepatitis C positive Pancreatitis s/p PEG RECOMMENDATIONS: stop TPN, GTF trial Trend lipase fu labs The patient will need repeat ERCP in 6 to 8 weeks for stent removal. outpatient Hep C tx The patient was seen and examined at bedside and all new and available data was reviewed in the patients chart. I agree with the above findings, impression and plan. (Patient seen earlier today. Signature stamp does not reflect patient encounter time.). - Toñito Yip MD Subjective Subjective limited, more awake and alert Objective Last 24 Hour Vital Signs Date Time Temp Pulse Resp B/P (MAP) Pulse Ox O2 Delivery O2 Flow Rate FiO2 07/28/18 16:00 Room Air 07/28/18 16:00 93 25 108/90 (96) 93 07/28/18 16:00 93 07/28/18 15:00 91 24 118/79 (92) 94 07/28/18 14:00 90 22 117/81 (93) 94 07/28/18 13:00 88 22 123/86 (98) 94 07/28/18 12:00 89 07/28/18 12:00 Room Air 07/28/18 12:00 98.6 89 23 118/78 (91) 96 07/28/18 11:35 112 111/72 07/28/18 11:00 112 20 111/72 (85) 96 07/28/18 10:00 111 20 115/76 (89) 96 07/28/18 09:00 115 20 120/78 (92) 96 07/28/18 08:00 115 20 108/68 (81) 96 07/28/18 08:00 115 07/28/18 07:24 Nasal Cannula 3.0 32 07/28/18 07:24 98 Nasal Cannula 3.0 32 07/28/18 07:24 121 24 Nasal Cannula 3.0 32 07/28/18 07:03 100 20 100/60 (73) 95 07/28/18 06:14 101 100/60 07/28/18 06:00 100 20 100/60 (73) 95 07/28/18 05:00 96 20 105/93 (97) 95 07/28/18 04:00 96 07/28/18 04:00 98.4 98 20 109/64 (79) 95 07/28/18 03:00 100 20 112/83 (93) 95 07/28/18 02:00 87 20 141/93 (109) 95 07/28/18 01:00 93 20 117/65 (82) 95 07/28/18 00:00 Nasal Cannula 3.0 07/28/18 00:00 93 07/28/18 00:00 95.0 92 20 107/83 (91) 96 07/27/18 23:00 111 20 117/77 (90) 95 07/27/18 22:17 111 112/73 07/27/18 22:00 110 20 112/85 (94) 07/27/18 21:00 Nasal Cannula 3.0 07/27/18 21:00 111 20 113/65 (81) 07/27/18 20:03 Nasal Cannula 3.0 32 07/27/18 20:02 97 Nasal Cannula 3.0 32 07/27/18 20:02 103 23 Nasal Cannula 3.0 32 07/27/18 20:00 104 07/27/18 20:00 98.5 99 20 110/75 (87) 07/27/18 20:00 Nasal Cannula 3.0 Intake and Output 07/27/18 07/28/18 19:00 07:00 Intake Total 373.27 ml 465 ml Output Total 550 ml 590 ml Balance -176.73 ml -125 ml Free Water 60 ml IV Total 233.27 ml 100 ml Tube Feeding 80 ml 365 ml Output Urine Total 550 ml 590 ml # Bowel Movements 2 Laboratory Tests Test 07/28/18 06:10 White Blood Count 17.0 K/UL (4.8-10.8) H Red Blood Count 3.79 M/UL (4.70-6.10) L Hemoglobin 13.0 G/DL (14.2-18.0) L Hematocrit 37.5 % (42.0-52.0) L Mean Corpuscular Volume 99 FL (80-99) Mean Corpuscular Hemoglobin 34.2 PG (27.0-31.0) H Mean Corpuscular Hemoglobin Concent 34.5 G/DL (32.0-36.0) Red Cell Distribution Width 12.9 % (11.6-14.8) Platelet Count 599 K/UL (150-450) H Mean Platelet Volume 7.0 FL (6.5-10.1) Neutrophils (%) (Auto) 81.4 % (45.0-75.0) H Lymphocytes (%) (Auto) 7.7 % (20.0-45.0) L Monocytes (%) (Auto) 5.0 % (1.0-10.0) Eosinophils (%) (Auto) 5.2 % (0.0-3.0) H Basophils (%) (Auto) 0.7 % (0.0-2.0) Sodium Level 140 MMOL/L (136-145) Potassium Level 4.3 MMOL/L (3.5-5.1) Chloride Level 108 MMOL/L (98-107) H Carbon Dioxide Level 26 MMOL/L (21-32) Anion Gap 6 mmol/L (5-15) Blood Urea Nitrogen 27 mg/dL (7-18) H Creatinine 0.8 MG/DL (0.55-1.30) Estimat Glomerular Filtration Rate > 60 mL/min (>60) Glucose Level 105 MG/DL (74-106) Calcium Level 9.2 MG/DL (8.5-10.1) Total Bilirubin 0.5 MG/DL (0.2-1.0) Aspartate Amino Transf (AST/SGOT) 222 U/L (15-37) H Alanine Aminotransferase (ALT/SGPT) 282 U/L (12-78) H Alkaline Phosphatase 162 U/L (46-116) H Total Protein 8.4 G/DL (6.4-8.2) H Albumin 2.1 G/DL (3.4-5.0) L Globulin 6.3 g/dL Albumin/Globulin Ratio 0.3 (1.0-2.7) L Amylase Level 142 U/L (25-115) H Lipase 975 U/L (73-393) H Height (Feet): 5 Height (Inches): 8.00 Weight (Pounds): 159 General Appearance: WD/WN, no apparent distress, alert Cardiovascular: normal rate Respiratory/Chest: normal breath sounds, no respiratory distress Abdominal Exam: normal bowel sounds, non tender, soft Extremities: normal range of motion, non-tender Sonja Neely NP Jul 28, 2018 16:53
[2018-07-28] MEDS: Micafungin 100 MG in NS 110 ML IVPB SCH (17:15)
--- NOTE | 2018-07-28 17:50 | NUR ---
NURSE NOTES: partial bed, pt bath reposition and oral care provided. abdominal dressing intact. J.p drain 10ml of sanguineous drainage. bed locked and in low position. Tv on. call light in reach. bed alarm on, HOB>30. will continue to monitor pt.
--- NOTE | 2018-07-28 18:13 | NUR ---
NURSE NOTES: pt requires reminding, not to remove pulse ox, blankets and pillows.
--- NOTE | 2018-07-28 19:21 | NUR ---
HAND-OFF: Report given to JAVIER Naranjo. pt in no acute distress. Reminded to stay in bed and not remove pulse ox and pillows, SCDs.
--- NOTE | 2018-07-28 19:25 | NUR ---
NURSE NOTES: Received report from Mikaela Munoz RN. Patient is alert and awake in bed. Comfortably watching television, denies pain at this time. GTF running Glucerna 1.5 @ 40cc/hr, no residual, HOB 35 degrees. Abdominal binder in place. surgical dressing intact . JUNE draining dark serious. FC draining annalisa colored urine to gravity. Reinforced pt to stay in bed. SCD's in place. Yellow socks and fall risk band in place. 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 Bed locked, alarmed and in lowest position. Will continue plan of care. Addendum: 07/28/18 at 2221 by TONI ELENA RN RN report received from Patrice HERRERA
[2018-07-28] MEDS: Dyna-Hex 2% Top Sol 2oz TOPIC SCH (20:25)
--- NOTE | 2018-07-28 20:50 | NUR ---
TRANSFER TO FLOOR: Patient transferred to [facility] 212-2, per . Report given to JAVIER Adams . Belongings and medications given to Angie HERRERA. Family and or S/O informed of transfer.
--- NOTE | 2018-07-28 20:55 | NUR ---
NURSE NOTES: Received report from JAVIER Naranjo. Patient transferred from ICU. Awake and alert w/ periods of confusion. Denies pain at this time. No signs of acute distress or discomfort noted. Respiration even and unlabored. On O2 @ 2L via NC. On GT feeding, Glucerna 1.5 currently at 30ml/hr. Left upper arm w/ PICC line, intact and patent. JUNE drain to right side of abd. Abd pad and binder on to abd surgical site, dressing intact, clean and dry. Serrano cath in place draining annalisa colored urine. SCDs on. Nursing protocols implemented. On fall risk precautions. Bed in lowest position, wheels locked, alarm on. Call light within easy reach. Will continue to monitor.
[2018-07-28] MEDS ORDERED: Pantoprazole Inj IVP SCH (21:00)
[2018-07-28] MEDS ORDERED: Acetaminophen 650 MG SUPP RECTAL PRN (21:05)
[2018-07-28] MEDS ORDERED: DiphenhydrAMINE 50mg/ml Inj IVP PRN (21:05)
[2018-07-28] MEDS ORDERED: Milk of Magnesia 30ml Ud NG PRN (21:05)
[2018-07-28] MEDS ORDERED: Ipratropium 0.02% Inh Soln 2.5ml UD HHN PRN (21:07)
[2018-07-28] MEDS ORDERED: Levalbuterol Inh UD 1.25mg/0.5ml HHN PRN (21:07)
[2018-07-28] MEDS ORDERED: Ketorolac 30mg Inj IV PRN (21:11)
--- NOTE | 2018-07-28 21:53 | Pulmonology Progress Note ---
Assessment/Plan Assessment/Plan Pulmonary Progress Note Assessment/Plan Problems: (1) Respiratory failure (2) Gangrenous cholecystitis (3) S/P cholecystectomy (4) Abnormal LFTs (5) Cholecystitis, acute (6) Hepatitis C (7) Alcoholic pancreatitis (8) Pancreatitis, acute (9) Alcohol abuse (10) Fatty liver (11) Tobacco use (12) Blood loss anemia (13) Pneumonia (14) PEG (percutaneous endoscopic gastrostomy) status (15) Paroxysmal atrial fibrillation with rapid ventricular response Assessment/Plan: Optimize pulmonary hygiene/mobilize as tolerated Titrate down FiO2 to keep SaO2 > 90% D/C DUOnebs, change to PRN Atrovent and Levalbuterol Abx (Jair) + Claudia per ID, monitor WCt and Cx's F/U GI and surgery recs Continue TF's Amio per cards, monitor rhythm Montor volumes and renal function DVT Px: Hep SQ FC Objective Vital Signs Noted Status: awake Condition: improving HEENT: atraumatic, normocephalic Lungs: rhonchi Heart: HR/BP stable Abdomen: soft, non-tender, active bowel sounds, other - GT dressed JUNE Extremities: no C/C/E Accucheck: 118 Blood Sugars: BS controlled Subjective Went into AFcRVR ON tx'd to ICU on an Amio gtt back in NSR Now S/P PEG, about to start TF's 94% on RA, WCt inc No cough, no SOB, no F/C Condition: stable IV Access: PICC EKG Rhythm: Sinus Rhythm Fluids: SLIV Subjective: No cough, no SOB, no wheezing, no F/C Pain well controlled CXR: Dec PVC, R and PH inf/atx Labs: Laboratory Tests Test 07/27/18 05:15 White Blood Count 19.6 K/UL (4.8-10.8) H Red Blood Count 3.73 M/UL (4.70-6.10) L Hemoglobin 12.9 G/DL (14.2-18.0) L Hematocrit 37.6 % (42.0-52.0) L Mean Corpuscular Volume 101 FL (80-99) H Mean Corpuscular Hemoglobin 34.6 PG (27.0-31.0) H Mean Corpuscular Hemoglobin Concent 34.3 G/DL (32.0-36.0) Red Cell Distribution Width 13.2 % (11.6-14.8) Platelet Count 595 K/UL (150-450) H Mean Platelet Volume 6.6 FL (6.5-10.1) Neutrophils (%) (Auto) % (45.0-75.0) Lymphocytes (%) (Auto) % (20.0-45.0) Monocytes (%) (Auto) % (1.0-10.0) Eosinophils (%) (Auto) % (0.0-3.0) Basophils (%) (Auto) % (0.0-2.0) Differential Total Cells Counted 100 Neutrophils % (Manual) 81 % (45-75) H Lymphocytes % (Manual) 8 % (20-45) L Monocytes % (Manual) 3 % (1-10) Eosinophils % (Manual) 3 % (0-3) Basophils % (Manual) 0 % (0-2) Band Neutrophils 5 % (0-8) Platelet Estimate Increased H Platelet Morphology Normal Macrocytosis 1+ Prothrombin Time 11.4 SEC (9.30-11.50) Prothromb Time International Ratio 1.1 (0.9-1.1) Activated Partial Thromboplast Time 29 SEC (23-33) Sodium Level 139 MMOL/L (136-145) Potassium Level 4.2 MMOL/L (3.5-5.1) Chloride Level 105 MMOL/L (98-107) Carbon Dioxide Level 22 MMOL/L (21-32) Anion Gap 13 mmol/L (5-15) Blood Urea Nitrogen 25 mg/dL (7-18) H Creatinine 0.8 MG/DL (0.55-1.30) Estimat Glomerular Filtration Rate > 60 mL/min (>60) Glucose Level 142 MG/DL (74-106) H Calcium Level 8.6 MG/DL (8.5-10.1) Phosphorus Level 3.3 MG/DL (2.5-4.9) Magnesium Level 2.5 MG/DL (1.8-2.4) H Total Bilirubin 0.4 MG/DL (0.2-1.0) Aspartate Amino Transf (AST/SGOT) 172 U/L (15-37) H Alanine Aminotransferase (ALT/SGPT) 229 U/L (12-78) H Alkaline Phosphatase 153 U/L (46-116) H Total Protein 8.7 G/DL (6.4-8.2) H Albumin 2.1 G/DL (3.4-5.0) L Globulin 6.6 g/dL Albumin/Globulin Ratio 0.3 (1.0-2.7) L Lipase 653 U/L (73-393) H Subjective ROS Limited/Unobtainable: No Allergies: Coded Allergies: No Known Allergies (Unverified , 06/01/16) Objective Last 24 Hour Vital Signs Date Time Temp Pulse Resp B/P (MAP) Pulse Ox O2 Delivery O2 Flow Rate FiO2 07/28/18 20:00 98.0 88 19 115/76 (89) 98 07/28/18 19:41 Nasal Cannula 3.0 32 07/28/18 19:40 106 21 Nasal Cannula 3.0 32 07/28/18 19:40 96 Nasal Cannula 3.0 32 07/28/18 19:00 97 28 138/81 (100) 94 07/28/18 18:00 98.9 88 25 121/78 (92) 98 07/28/18 17:16 92 123/84 07/28/18 17:00 94 28 123/84 (97) 94 07/28/18 16:00 Room Air 07/28/18 16:00 93 25 108/90 (96) 93 07/28/18 16:00 93 07/28/18 15:00 91 24 118/79 (92) 94 07/28/18 14:00 90 22 117/81 (93) 94 07/28/18 13:00 88 22 123/86 (98) 94 07/28/18 12:00 89 07/28/18 12:00 Room Air 07/28/18 12:00 98.6 89 23 118/78 (91) 96 07/28/18 11:35 112 111/72 07/28/18 11:00 112 20 111/72 (85) 96 07/28/18 10:00 111 20 115/76 (89) 96 07/28/18 09:00 115 20 120/78 (92) 96 07/28/18 08:00 115 20 108/68 (81) 96 07/28/18 08:00 115 07/28/18 07:24 Nasal Cannula 3.0 32 07/28/18 07:24 98 Nasal Cannula 3.0 32 07/28/18 07:24 121 24 Nasal Cannula 3.0 32 07/28/18 07:03 100 20 100/60 (73) 95 07/28/18 06:14 101 100/60 07/28/18 06:00 100 20 100/60 (73) 95 07/28/18 05:00 96 20 105/93 (97) 95 07/28/18 04:00 96 07/28/18 04:00 98.4 98 20 109/64 (79) 95 07/28/18 03:00 100 20 112/83 (93) 95 07/28/18 02:00 87 20 141/93 (109) 95 07/28/18 01:00 93 20 117/65 (82) 95 07/28/18 00:00 Nasal Cannula 3.0 07/28/18 00:00 93 07/28/18 00:00 95.0 92 20 107/83 (91) 96 07/27/18 23:00 111 20 117/77 (90) 95 07/27/18 22:17 111 112/73 07/27/18 22:00 110 20 112/85 (94) Intake and Output 07/27/18 07/28/18 19:00 07:00 Intake Total 373.27 ml 465 ml Output Total 550 ml 590 ml Balance -176.73 ml -125 ml Free Water 60 ml IV Total 233.27 ml 100 ml Tube Feeding 80 ml 365 ml Output Urine Total 550 ml 590 ml # Bowel Movements 2 Laboratory Tests 07/28/18 06:10: White Blood Count 17.0H, Red Blood Count 3.79L, Hemoglobin 13.0L, Hematocrit 37.5L, Mean Corpuscular Volume 99, Mean Corpuscular Hemoglobin 34.2H, Mean Corpuscular Hemoglobin Concent 34.5, Red Cell Distribution Width 12.9, Platelet Count 599H, Mean Platelet Volume 7.0, Neutrophils (%) (Auto) 81.4H, Lymphocytes (%) (Auto) 7.7L, Monocytes (%) (Auto) 5.0, Eosinophils (%) (Auto) 5.2H, Basophils (%) (Auto) 0.7, Sodium Level 140, Potassium Level 4.3, Chloride Level 108H, Carbon Dioxide Level 26, Anion Gap 6, Blood Urea Nitrogen 27H, Creatinine 0.8, Estimat Glomerular Filtration Rate > 60, Glucose Level 105, Calcium Level 9.2, Total Bilirubin 0.5, Aspartate Amino Transf (AST/SGOT) 222H, Alanine Aminotransferase (ALT/SGPT) 282H, Alkaline Phosphatase 162H, Total Protein 8.4H , Albumin 2.1L, Globulin 6.3, Albumin/Globulin Ratio 0.3L, Amylase Level 142H, Lipase 975H Current Medications Medications (Trade) Dose Ordered Sig/[place] Route PRN Reason Start Time Stop Time Status Last Admin Dose Admin Acetaminophen (Tylenol) 650 mg Q4H PRN RECTAL Prn for Temp >100.5 07/28/18 21:05 08/14/18 21:04 Al Hydroxide/Mg Hydroxide (Mylanta) 15 ml Q6H PRN NG DYSPEPSIA 07/28/18 21:05 08/27/18 21:04 Chlorhexidine Gluconate (Estrella-Hex 2%) 1 applic DAILY@2000 TOPIC 07/29/18 20:00 08/15/18 19:59 Dextrose (Dextrose 50%) 25 ml Q30M PRN IV Hypoglycemia 07/28/18 21:05 08/17/18 21:04 Dextrose (Dextrose 50%) 50 ml Q30M PRN IV hypoglycemia 07/28/18 21:05 08/17/18 21:04 Diphenhydramine HCl (Benadryl) 12.5 mg Q6H PRN IVP Itching/Pruritis 07/28/18 21:05 08/27/18 21:04 Heparin Sodium (Porcine) (Heparin 5000 units/ml) 5,000 units Q12HR SUBQ 07/28/18 21:00 08/02/18 08:59 Insulin Aspart (NovoLOG) No Dose Q6HR SUBQ 07/29/18 00:00 08/17/18 12:59 Ipratropium Ermine (Atrovent) 500 mcg Q4H PRN HHN Shortness of Breath 07/28/18 21:07 08/01/18 21:06 Ketorolac Tromethamine (Toradol 30mg) 30 mg Q6H PRN IV Moderate Pain (Pain Scale 4-6) 07/28/18 21:11 07/31/18 21:10 Levalbuterol HCl (Xopenex) 0.63 mg Q4H PRN HHN SOB/wheezing 2/9/19 21:07 08/01/18 21:06 Magnesium Hydroxide (Mom) 30 ml BIDPRN PRN NG Constipation 07/28/18 21:05 08/27/18 21:04 Meropenem 1 gm/ Sodium Chloride 100 ml @ 200 mls/hr Q8HR IVPB 07/28/18 22:00 08/02/18 05:59 Nicotine (Nicoderm) 1 patch Q24H TDERMAL 07/29/18 18:00 08/08/18 17:59 Ondansetron HCl (Zofran) 4 mg Q6H PRN IVP Nausea & Vomiting 07/28/18 21:05 08/27/18 21:04 Pantoprazole (Protonix) 40 mg EVERY 12 HOURS IVP 07/29/18 09:00 08/28/18 08:59 Propranolol HCl (Inderal) 40 mg BID GT 07/29/18 09:00 08/27/18 11:59 Parker Borjas MD Jul 28, 2018 21:53
--- NOTE | 2018-07-28 23:24 | Cardiology Progress Note ---
Assessment/Plan Assessment/Plan 1, Paroxysmal atrial fibrillation, continue uptitrating propranolol, not a suitable candidate for anticoag therapy. 2. Moderate pulmonary HTN. Subjective Subjective Sinus rhythm at rate of 88. Objective Last 24 Hour Vital Signs Date Time Temp Pulse Resp B/P (MAP) Pulse Ox O2 Delivery O2 Flow Rate FiO2 07/28/18 20:00 98.0 88 19 115/76 (89) 98 07/28/18 19:41 Nasal Cannula 3.0 32 07/28/18 19:40 106 21 Nasal Cannula 3.0 32 07/28/18 19:40 96 Nasal Cannula 3.0 32 07/28/18 19:00 97 28 138/81 (100) 94 07/28/18 18:00 98.9 88 25 121/78 (92) 98 07/28/18 17:16 92 123/84 07/28/18 17:00 94 28 123/84 (97) 94 07/28/18 16:00 Room Air 07/28/18 16:00 93 25 108/90 (96) 93 07/28/18 16:00 93 07/28/18 15:00 91 24 118/79 (92) 94 07/28/18 14:00 90 22 117/81 (93) 94 07/28/18 13:00 88 22 123/86 (98) 94 07/28/18 12:00 89 07/28/18 12:00 Room Air 07/28/18 12:00 98.6 89 23 118/78 (91) 96 07/28/18 11:35 112 111/72 07/28/18 11:00 112 20 111/72 (85) 96 07/28/18 10:00 111 20 115/76 (89) 96 07/28/18 09:00 115 20 120/78 (92) 96 07/28/18 08:00 115 20 108/68 (81) 96 07/28/18 08:00 115 07/28/18 07:24 Nasal Cannula 3.0 32 07/28/18 07:24 98 Nasal Cannula 3.0 32 07/28/18 07:24 121 24 Nasal Cannula 3.0 32 07/28/18 07:03 100 20 100/60 (73) 95 07/28/18 06:14 101 100/60 07/28/18 06:00 100 20 100/60 (73) 95 07/28/18 05:00 96 20 105/93 (97) 95 07/28/18 04:00 96 07/28/18 04:00 98.4 98 20 109/64 (79) 95 07/28/18 03:00 100 20 112/83 (93) 95 07/28/18 02:00 87 20 141/93 (109) 95 07/28/18 01:00 93 20 117/65 (82) 95 07/28/18 00:00 Nasal Cannula 3.0 07/28/18 00:00 93 07/28/18 00:00 95.0 92 20 107/83 (91) 96 Intake and Output 07/27/18 07/28/18 19:00 07:00 Intake Total 373.27 ml 465 ml Output Total 550 ml 590 ml Balance -176.73 ml -125 ml Free Water 60 ml IV Total 233.27 ml 100 ml Tube Feeding 80 ml 365 ml Output Urine Total 550 ml 590 ml # Bowel Movements 2 2D Echo: LVEF 65%, Mild LVH, RVSP 50 mmHg, Mild MR/KY, Normal LVD Laboratory Tests Test 07/28/18 06:10 White Blood Count 17.0 K/UL (4.8-10.8) H Red Blood Count 3.79 M/UL (4.70-6.10) L Hemoglobin 13.0 G/DL (14.2-18.0) L Hematocrit 37.5 % (42.0-52.0) L Mean Corpuscular Volume 99 FL (80-99) Mean Corpuscular Hemoglobin 34.2 PG (27.0-31.0) H Mean Corpuscular Hemoglobin Concent 34.5 G/DL (32.0-36.0) Red Cell Distribution Width 12.9 % (11.6-14.8) Platelet Count 599 K/UL (150-450) H Mean Platelet Volume 7.0 FL (6.5-10.1) Neutrophils (%) (Auto) 81.4 % (45.0-75.0) H Lymphocytes (%) (Auto) 7.7 % (20.0-45.0) L Monocytes (%) (Auto) 5.0 % (1.0-10.0) Eosinophils (%) (Auto) 5.2 % (0.0-3.0) H Basophils (%) (Auto) 0.7 % (0.0-2.0) Sodium Level 140 MMOL/L (136-145) Potassium Level 4.3 MMOL/L (3.5-5.1) Chloride Level 108 MMOL/L (98-107) H Carbon Dioxide Level 26 MMOL/L (21-32) Anion Gap 6 mmol/L (5-15) Blood Urea Nitrogen 27 mg/dL (7-18) H Creatinine 0.8 MG/DL (0.55-1.30) Estimat Glomerular Filtration Rate > 60 mL/min (>60) Glucose Level 105 MG/DL (74-106) Calcium Level 9.2 MG/DL (8.5-10.1) Total Bilirubin 0.5 MG/DL (0.2-1.0) Aspartate Amino Transf (AST/SGOT) 222 U/L (15-37) H Alanine Aminotransferase (ALT/SGPT) 282 U/L (12-78) H Alkaline Phosphatase 162 U/L (46-116) H Total Protein 8.4 G/DL (6.4-8.2) H Albumin 2.1 G/DL (3.4-5.0) L Globulin 6.3 g/dL Albumin/Globulin Ratio 0.3 (1.0-2.7) L Amylase Level 142 U/L (25-115) H Lipase 975 U/L (73-393) H Objective HEENT: normocephalic, atraumatic, anicteric, PERRL, dry mucous membrane Neck: no JVD, no carotid bruit. Respiratory/Chest: chest wall non-tender, lungs clear, normal breath sounds, no respiratory distress, no accessory muscle use Cardiovascular/Chest: Normal S1S2, no murmurs, gallops or rubs, rate,regular rhythm Abdomen: normal bowel sounds, soft, no organomegaly, no mass, other - mild epigastric ttp Extremities: normal range of motion, non-tender, normal inspection, no calf tenderness, normal capillary refill, non-pitting Skin Exam: normal pigmentation, warm/dry Neurologic: no motor/sensory deficits, alert, oriented x 3, responsive, normal mood/affect Luis Patel MD Jul 28, 2018 23:24
[2018-07-29] VITALS (7 sets, daily range): BP systolic 109–133; BP diastolic 62–90
--- NOTE | 2018-07-29 02:00 | NUR ---
NURSE NOTES: Patient noted w/ periods of removing monitoring and evaluation advisor, removing blankets, socks & SCDs. Instructed patient on importance of monitoring and evaluation advisor and SCDs. On hourly rounding. Complete linen change done. Oral hygiene provided. Will continue to monitor.
--- NOTE | 2018-07-29 02:30 | Consultation ---
DATE OF CONSULTATION: 07/27/2018 CARDIOLOGY CONSULTATION CONSULTING PHYSICIAN: Luis Patel M.D. REFERRING PHYSICIAN: Maxx Kinsey M.D. REASON FOR CONSULTATION: Management of atrial fibrillation with rapid ventricular response. HISTORY OF PRESENT ILLNESS: The patient is a very unfortunate 62-year-old gentleman, who presented initially on 07/02/2018 with complaints of abdominal pain, nausea, vomiting, and decreased appetite. The patient has a history of pancreatitis due to chronic alcohol abuse in the past. The patient states that he has continued to intake alcohol and had prior episode of pancreatitis. At the time of arrival to the hospital, initial blood pressure was 170/100 and heart rate was 66. A 12-lead electrocardiogram done at emergency department on the day of arrival was sinus tachycardia, rate of 100, with evidence of anterior infarct age indeterminate. The patient was seen by Dr. 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 Sphincterotomy and sodium phos extraction from the common bile duct was done. Stent was placed in the biliary tract. The patient was continued on IV antibiotics. During the course of hospitalization, a rapid ventricular response was called and the patient was taken to the intensive care unit for management of atrial fibrillation with rapid ventricular response. The patient was started on amiodarone drip followed by amiodarone IV infusion. Cardiology consultation was made at the request of Dr. Kinsey for management of this condition. PAST MEDICAL HISTORY: 1. History of pancreatitis. 2. History of gastritis. 3. History of dysphagia, status post PEG placement by Dr. Yip. 4. History of status post biliary tract stent placement. 5. History of alcohol abuse. 6. History of gangrenous cholecystitis. 7. History of respiratory failure and ventilator dependence. 8. History of hepatitis C virus infection. 9. History of pneumonia. 10. History of fatty liver. 11. History of GI bleed. 12. Associated anemia. ALLERGIES: No known drug allergies. PAST SURGICAL HISTORY: 1. G2. 2. ERCP status post sphincterotomy and biliary tract stent placement. FAMILY HISTORY: No premature coronary artery disease in the first-degree relatives. REVIEW OF SYSTEMS: Currently, the patient is intubated and is not capable of providing 12-system review. MEDICATIONS: List of medications at home. No active medication is reported in the hospital as the patient is on amiodarone, meropenem, Micafungin, acetaminophen, heparin prophylaxis 5000 units subcutaneous q.12 hours, insulin NovoLog as needed, ketorolac 30 mg IV every 6 hours p.r.n. for pain, milk of magnesia, Mylanta, nicotine patch, Zofran, pantoprazole, vitamin K, propranolol. PHYSICAL EXAMINATION: VITAL SIGNS: Based on 07/25/2018, blood pressure was 134/87, heart rate of 113, pulse ox of 96% of nasal cannula, temperature 99.1 degrees Fahrenheit, and O2 saturation 96% on 3 L oxygen flow. GENERAL: This is a very unfortunate 62-year-old gentleman, in no apparent respiratory distress. HEENT: Atraumatic, normocephalic, anicteric. Pupils are equal, round, and reactive to light and accommodation. Extraocular muscles intact. NECK: JVP less than 5 cm. No carotid bruit. Carotid upstrokes 2+ bilaterally. CARDIOVASCULAR: Normal S1, S2. Regular rate and rhythm. Tachycardic. No murmurs, gallops, or rubs. PMI is at fourth intercostal space in the midclavicular line. LUNGS: Clear to auscultation bilaterally. ABDOMEN: Soft, nontender, and nondistended. No hepatosplenomegaly. Positive bowel sounds. EXTREMITIES: No evidence of edema, clubbing, or cyanosis. LABORATORY FINDINGS: WBC 14.4, hemoglobin 13.1, hematocrit 38.3, and platelet count is 537. Sodium 139, potassium is 4.0, chloride 105, bicarbonate 26, BUN of 18, creatinine 0.7, glucose is 118, calcium is 8.9. Lipase is elevated at 1233. INR is 1.0 from 07/20/2018. Chest x-ray from the 5th shows a suspected mild interstitial edema, small right pleural effusion, and cardiomegaly. ASSESSMENT AND PLAN: The patient is a very unfortunate 62-year-old gentleman, seen in Cardiology consultation. 1. Atrial fibrillation with rapid ventricular response. The patient was placed on amiodarone loading dose 150 mg IV x1 dose followed by amiodarone infusion at 1 mg/minute. After 24 hours infusion, we will switch to amiodarone by mouth 200 mg p.o. daily. The patient is not a suitable candidate for anticoagulation therapy in view of underlying gastrointestinal disorder including GI bleed. 2. Sinus tachycardia could be secondary to intravascular volume depletion. I would consider an albumin administration. Propranolol would be a good start at 10 mg twice daily. Can be optimized for better heart rate control. 3. Pleural hypertension. 4. Biliary stricture status post stent placement. 5. History of acute cholecystitis. 6. History of acute pancreatitis. 7. Fatty liver. 8. Hepatitis C virus infection. 9. History of gastritis. I would like to thank Dr. Kinsey for allowing me to participate in the care of this patient. Luis Patel M.D. DR: ABDULAZIZ JOB#: [id number] CC:
[2018-07-29] MEDS: NovoLOG Insulin Flexpen SUBQ SCH ×4 (06:00→17:32)
[2018-07-29 07:40] LABS: EOSINOPHILS % (AUTO) 4.9 % (0.0-3.0); HEMATOCRIT 38.2 % (42.0-52.0); LYMPHOCYTES % (AUTO) 8.2 % (20.0-45.0); MEAN CORPUSCULAR VOLUME 100 FL (80-99); MONOCYTES % (AUTO) 4.8 % (1.0-10.0); NEUTROPHILS % (AUTO) 81.1 % (45.0-75.0); PLATELET COUNT 624 K/UL (150-450); RED CELL DISTRIBUTION WIDTH 13.2 % (11.6-14.8); WHITE BLOOD COUNT 17.7 K/UL (4.8-10.8)
--- NOTE | 2018-07-29 08:04 | NUR ---
HAND-OFF: Report given to JAVIER Pastrana. Plan of care endorsed.
--- NOTE | 2018-07-29 08:04 | NUR ---
NURSE NOTES: Report received from JAVIER Adams. Patient awake. In 2L NC. Denies SOB or pain. Picc line L upper arm, flushed, and SL. Dressing intact. JUNE intact and draining. Serrano intact and draining. Bed on lowest position, side rails upx2, brakes engaged, alarm on. Call light within easy reach.
[2018-07-29 08:05] LABS: ANION GAP 9 mmol/L (5-15); BLOOD UREA NITROGEN 23 mg/dL (7-18); CALCIUM 8.8 MG/DL (8.5-10.1); CARBON DIOXIDE 27 MMOL/L (21-32); CHLORIDE 105 MMOL/L (98-107); CREATININE 0.8 MG/DL (0.55-1.30); PHOSPHORUS 3.1 MG/DL (2.5-4.9); POTASSIUM 3.9 MMOL/L (3.5-5.1); SODIUM 141 MMOL/L (136-145)
--- NOTE | 2018-07-29 09:12 | NUR ---
CASE MANAGEMENT: REVIEW 07/29/2018 SI: ALCOHOLIC PANCREATIS. T 97.9 HR 105 RR 18 B/P 121/84 ANGELI 95% ON RA WBC 17.7 BUN 23 IS: AMIODARONE IV Q24HR MEROPENEM IV Q8HR PROTONIX IV Q12HR GT FEEDING GLUCERNA 1.5 @ 60ML/HR TELE STATUS DCP: PATIENT IS FROM HOME
[2018-07-29] MEDS: Propranolol 40mg tab GT SCH ×2 (09:45→17:25)
[2018-07-29] MEDS: Pantoprazole Inj IVP SCH ×2 (09:45→21:41)
[2018-07-29] MEDS: Heparin 5000 units/ml inj SUBQ SCH ×2 (09:49→21:40)
--- NOTE | 2018-07-29 13:37 | General Progress Note ---
Progress Note Progress Note leukocytosis persistent lipase elevated again exam improved otherwise overall improved -cont with g tube feeds; wean off tpn -cont iv abx [place] Antonio Jul 29, 2018 13:37
--- NOTE | 2018-07-29 15:23 | GI Progress Note ---
Assessment/Plan Problems: (1) Abnormal LFTs ICD Codes: R79.89 - Other specified abnormal findings of blood chemistry SNOMED: 947268238 (2) Cholecystitis, acute ICD Codes: K81.0 - Acute cholecystitis SNOMED: 17125563 (3) Hepatitis C ICD Codes: B19.20 - Unspecified viral hepatitis C without hepatic coma SNOMED: 93237015 (4) Fatty liver ICD Codes: K76.0 - Fatty (change of) liver, not elsewhere classified SNOMED: 194769848 (5) Alcoholic pancreatitis ICD Codes: K85.20 - Alcohol induced acute pancreatitis without necrosis or infection SNOMED: 173996021 (6) Pancreatitis, acute ICD Codes: K85.90 - Acute pancreatitis without necrosis or infection, unspecified SNOMED: 042617289 Status: stable, progressing Status Narrative Discussed with Dr. Yip Assessment/Plan SUMMARY OF FINDINGS: 1. 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 2. Status post ERCP with sphincterotomy, balloon assistance sludge and some pus extraction from the common bile duct and then stent placement. s/p open jocelyn, now in ICU with pancreatitis hepatitis C positive Pancreatitis s/p PEG RECOMMENDATIONS: Continue G-tube feedings per RD to goal Trend lipase fu labs The patient will need repeat ERCP in 6 to 8 weeks for stent removal. outpatient Hep C tx The patient was seen and examined at bedside and all new and available data was reviewed in the patients chart. I agree with the above findings, impression and plan. (Patient seen earlier today. Signature stamp does not reflect patient encounter time.). - Toñito Yip MD Subjective Subjective limited, more awake and alert Objective Last 24 Hour Vital Signs Date Time Temp Pulse Resp B/P (MAP) Pulse Ox O2 Delivery O2 Flow Rate FiO2 07/29/18 12:00 80 07/29/18 12:00 97.8 79 20 133/90 (104) 96 07/29/18 09:45 105 121/84 07/29/18 09:00 Room Air 2.0 07/29/18 08:14 Nasal Cannula 3.0 32 07/29/18 08:13 95 Nasal Cannula 3.0 32 07/29/18 08:12 102 20 Nasal Cannula 3.0 32 07/29/18 08:00 97.9 105 18 121/84 (96) 95 07/29/18 08:00 106 07/29/18 04:00 97.6 66 18 111/62 (78) 99 07/29/18 04:00 96 07/29/18 02:04 97.7 77 18 132/77 (95) 100 07/29/18 00:00 88 07/29/18 00:00 98.5 80 19 130/82 (98) 100 07/28/18 21:00 98.7 93 20 128/89 (102) 96 07/28/18 21:00 Room Air 2.0 07/28/18 20:00 98.0 88 19 115/76 (89) 98 07/28/18 20:00 90 07/28/18 19:41 Nasal Cannula 3.0 32 07/28/18 19:40 106 21 Nasal Cannula 3.0 32 07/28/18 19:40 96 Nasal Cannula 3.0 32 07/28/18 19:00 97 28 138/81 (100) 94 07/28/18 18:00 98.9 88 25 121/78 (92) 98 07/28/18 17:16 92 123/84 07/28/18 17:00 94 28 123/84 (97) 94 07/28/18 16:00 Room Air 07/28/18 16:00 93 25 108/90 (96) 93 07/28/18 16:00 93 Intake and Output 07/28/18 07/29/18 19:00 07:00 Intake Total 850 ml 855 ml Output Total 560 ml 767 ml Balance 290 ml 88 ml Free Water 180 ml 250 ml IV Total 310 ml 200 ml Tube Feeding 360 ml 405 ml Output Urine Total 540 ml 760 ml Drainage Total 20 ml 7 ml # Bowel Movements 6 Laboratory Tests Test 07/29/18 06:45 White Blood Count 17.7 K/UL (4.8-10.8) H Red Blood Count 3.80 M/UL (4.70-6.10) L Hemoglobin 13.0 G/DL (14.2-18.0) L Hematocrit 38.2 % (42.0-52.0) L Mean Corpuscular Volume 100 FL (80-99) H Mean Corpuscular Hemoglobin 34.1 PG (27.0-31.0) H Mean Corpuscular Hemoglobin Concent 34.0 G/DL (32.0-36.0) Red Cell Distribution Width 13.2 % (11.6-14.8) Platelet Count 624 K/UL (150-450) H Mean Platelet Volume 6.5 FL (6.5-10.1) Neutrophils (%) (Auto) 81.1 % (45.0-75.0) H Lymphocytes (%) (Auto) 8.2 % (20.0-45.0) L Monocytes (%) (Auto) 4.8 % (1.0-10.0) Eosinophils (%) (Auto) 4.9 % (0.0-3.0) H Basophils (%) (Auto) 1.0 % (0.0-2.0) Sodium Level 141 MMOL/L (136-145) Potassium Level 3.9 MMOL/L (3.5-5.1) Chloride Level 105 MMOL/L (98-107) Carbon Dioxide Level 27 MMOL/L (21-32) Anion Gap 9 mmol/L (5-15) Blood Urea Nitrogen 23 mg/dL (7-18) H Creatinine 0.8 MG/DL (0.55-1.30) Estimat Glomerular Filtration Rate > 60 mL/min (>60) Glucose Level 103 MG/DL (74-106) Calcium Level 8.8 MG/DL (8.5-10.1) Phosphorus Level 3.1 MG/DL (2.5-4.9) Magnesium Level 2.2 MG/DL (1.8-2.4) Height (Feet): 5 Height (Inches): 8.00 Weight (Pounds): 159 General Appearance: WD/WN, no apparent distress, alert, thin Cardiovascular: normal rate Respiratory/Chest: normal breath sounds, no respiratory distress Abdominal Exam: normal bowel sounds, non tender, soft, GT site Extremities: non-tender Sonja Neely NP Jul 29, 2018 15:23
--- NOTE | 2018-07-29 15:39 | General Progress Note ---
Assessment/Plan Assessment/Plan #Sepsis #Acute purulent gangrenous cholecystitis. #klebsiella cholecystitis #acute Hypoxic respiratory failure #Acute Metabolic Encephalopathy - due to alcohol withdrawal and sepsis - meropenem, Diflucan - bcx x 2 ngtd - s/p ercp 07/12 - gen surg following s/p lap jocelyn converted to open jocelyn 07/12 - extubated on 07/16/18 - off o2 ncl - pulm following appreciated - pain control - appreciate surg recs - tpn -NG tube removed -Awaiting PEG -PT ordered #Acute Blood Loss Anemia - due to recent surgery - no overt bleeding noted currently - hgb 6.8 07/15, transfused 2U, 9.7 (07/16) - stable #Pleural Effusions - b/l - per mrcp - stable - pulm consult appreciated #Alcohol Pancreatitis #Intractable abdominal pain #intractable nausea/vomiting #Transaminitis #Alcohol Hepatitis #Alcohol withdrawals #Fatty Liver Disease #Hepatitis C - LFTs 446/532 - Lipase 687 - due to alcohol abuse - INR 1.0 - discriminant function, 4.5 , no need for steroids - US abd completed and reviewed, showing fatty liver disease. GS present, no obstruction noted - ppi - PRN antiemetics, zofran prn - Banana bag - close lab monitoring - IVF - monitor carefully for withdrawals - tube feeds held due to worsening pancreatitis - TPN - Per GI, will need ERCP in 6-8 weeks for stent removal #Failure to thrive - due to alcohol withdrawals and the above - alcoholic pancreatitis - fluids #Alcohol Abuse - educated on cessation for 15 mins - patient states he understands and will try to quit - RN notified to monitor carefully with withdrawals - prn ativan - ciwa #Uncontrolled HTN and tachycardia overnight -all oral BP meds held for now -continue metoprolol IV q6h -transferred to ICU, on amiodarone drip #Tobacco abuse - smokes 1ppd - educated on smoking cessation for over 15 mins, states he understands the risks of smoking and will try to quit #Dysphagia -seen by BROODMARE BARN GROOM -strict NPO recommended at this time -Continue tube feeds via PEG diet: continue TPN Subjective Date patient seen: Jul 29, 2018 Time patient seen: 13:00 ROS Limited/Unobtainable: Yes Cardiovascular: Denies: chest pain Respiratory: Denies: shortness of breath Gastrointestinal/Abdominal: Denies: abdominal pain Allergies: Coded Allergies: No Known Allergies (Unverified , 06/01/16) Subjective Medicine follow up for multiple medical problems including acute gangrenous cholecystitis, acute hypoxic respiratory failure, acute encephalopathy No new issues, tolerating tube feeds Objective Last 24 Hour Vital Signs Date Time Temp Pulse Resp B/P (MAP) Pulse Ox O2 Delivery O2 Flow Rate FiO2 07/29/18 12:00 80 07/29/18 12:00 97.8 79 20 133/90 (104) 96 07/29/18 09:45 105 121/84 07/29/18 09:00 Room Air 2.0 07/29/18 08:14 Nasal Cannula 3.0 32 07/29/18 08:13 95 Nasal Cannula 3.0 32 07/29/18 08:12 102 20 Nasal Cannula 3.0 32 07/29/18 08:00 97.9 105 18 121/84 (96) 95 07/29/18 08:00 106 07/29/18 04:00 97.6 66 18 111/62 (78) 99 07/29/18 04:00 96 07/29/18 02:04 97.7 77 18 132/77 (95) 100 07/29/18 00:00 88 07/29/18 00:00 98.5 80 19 130/82 (98) 100 07/28/18 21:00 98.7 93 20 128/89 (102) 96 07/28/18 21:00 Room Air 2.0 07/28/18 20:00 98.0 88 19 115/76 (89) 98 07/28/18 20:00 90 07/28/18 19:41 Nasal Cannula 3.0 32 07/28/18 19:40 106 21 Nasal Cannula 3.0 32 07/28/18 19:40 96 Nasal Cannula 3.0 32 07/28/18 19:00 97 28 138/81 (100) 94 07/28/18 18:00 98.9 88 25 121/78 (92) 98 07/28/18 17:16 92 123/84 07/28/18 17:00 94 28 123/84 (97) 94 07/28/18 16:00 Room Air 07/28/18 16:00 93 25 108/90 (96) 93 07/28/18 16:00 93 Intake and Output 07/28/18 07/29/18 19:00 07:00 Intake Total 850 ml 855 ml Output Total 560 ml 767 ml Balance 290 ml 88 ml Free Water 180 ml 250 ml IV Total 310 ml 200 ml Tube Feeding 360 ml 405 ml Output Urine Total 540 ml 760 ml Drainage Total 20 ml 7 ml # Bowel Movements 6 Laboratory Tests 07/29/18 06:45: White Blood Count 17.7H, Red Blood Count 3.80L, Hemoglobin 13.0L, Hematocrit 38.2L, Mean Corpuscular Volume 100H, Mean Corpuscular Hemoglobin 34.1H, Mean Corpuscular Hemoglobin Concent 34.0, Red Cell Distribution Width 13.2, Platelet Count 624H, Mean Platelet Volume 6.5, Neutrophils (%) (Auto) 81.1H, Lymphocytes (%) (Auto) 8.2L, Monocytes (%) (Auto) 4.8, Eosinophils (%) (Auto) 4.9H, Basophils (%) (Auto) 1.0, Sodium Level 141, Potassium Level 3.9, Chloride Level 105, Carbon Dioxide Level 27, Anion Gap 9, Blood Urea Nitrogen 23H, Creatinine 0.8, Estimat Glomerular Filtration Rate > 60, Glucose Level 103, Calcium Level 8.8, Phosphorus Level 3.1, Magnesium Level 2.2 Height (Feet): 5 Height (Inches): 8.00 Weight (Pounds): 159 General Appearance: alert Cardiovascular: normal rate, regular rhythm Respiratory/Chest: lungs clear Abdomen: non tender, soft Tomás Cruz MD Jul 29, 2018 15:39
--- NOTE | 2018-07-29 15:50 | Pulmonology Progress Note ---
Assessment/Plan Assessment/Plan Pulmonary Progress Note Assessment/Plan Problems: (1) Respiratory failure (2) Gangrenous cholecystitis (3) S/P cholecystectomy (4) Abnormal LFTs (5) Cholecystitis, acute (6) Hepatitis C (7) Alcoholic pancreatitis (8) Pancreatitis, acute (9) Alcohol abuse (10) Fatty liver (11) Tobacco use (12) Blood loss anemia (13) Pneumonia (14) PEG (percutaneous endoscopic gastrostomy) status (15) Paroxysmal atrial fibrillation with rapid ventricular response Assessment/Plan: Optimize pulmonary hygiene/mobilize as tolerated Titrate down FiO2 to keep SaO2 > 90% D/C DUOnebs, change to PRN Atrovent and Levalbuterol Abx (Jair) + Claudia per ID, monitor WCt and Cx's F/U GI and surgery recs Continue TF's Amio per cards, monitor rhythm Montor volumes and renal function DVT Px: Hep SQ FC Objective Vital Signs Noted Status: awake Condition: improving HEENT: atraumatic, normocephalic Lungs: rhonchi Heart: HR/BP stable Abdomen: soft, non-tender, active bowel sounds, other - GT dressed JUNE Extremities: no C/C/E Accucheck: 118 Blood Sugars: BS controlled Subjective Went into AFcRVR ON tx'd to ICU on an Amio gtt back in NSR Now S/P PEG, about to start TF's 94% on RA, WCt inc No cough, no SOB, no F/C Condition: stable IV Access: PICC EKG Rhythm: Sinus Rhythm Fluids: SLIV Subjective: No cough, no SOB, no wheezing, no F/C Pain well controlled CXR: Dec PVC, R and PH inf/atx Labs: Laboratory Tests Test 07/27/18 05:15 White Blood Count 19.6 K/UL (4.8-10.8) H Red Blood Count 3.73 M/UL (4.70-6.10) L Hemoglobin 12.9 G/DL (14.2-18.0) L Hematocrit 37.6 % (42.0-52.0) L Mean Corpuscular Volume 101 FL (80-99) H Mean Corpuscular Hemoglobin 34.6 PG (27.0-31.0) H Mean Corpuscular Hemoglobin Concent 34.3 G/DL (32.0-36.0) Red Cell Distribution Width 13.2 % (11.6-14.8) Platelet Count 595 K/UL (150-450) H Mean Platelet Volume 6.6 FL (6.5-10.1) Neutrophils (%) (Auto) % (45.0-75.0) Lymphocytes (%) (Auto) % (20.0-45.0) Monocytes (%) (Auto) % (1.0-10.0) Eosinophils (%) (Auto) % (0.0-3.0) Basophils (%) (Auto) % (0.0-2.0) Differential Total Cells Counted 100 Neutrophils % (Manual) 81 % (45-75) H Lymphocytes % (Manual) 8 % (20-45) L Monocytes % (Manual) 3 % (1-10) Eosinophils % (Manual) 3 % (0-3) Basophils % (Manual) 0 % (0-2) Band Neutrophils 5 % (0-8) Platelet Estimate Increased H Platelet Morphology Normal Macrocytosis 1+ Prothrombin Time 11.4 SEC (9.30-11.50) Prothromb Time International Ratio 1.1 (0.9-1.1) Activated Partial Thromboplast Time 29 SEC (23-33) Sodium Level 139 MMOL/L (136-145) Potassium Level 4.2 MMOL/L (3.5-5.1) Chloride Level 105 MMOL/L (98-107) Carbon Dioxide Level 22 MMOL/L (21-32) Anion Gap 13 mmol/L (5-15) Blood Urea Nitrogen 25 mg/dL (7-18) H Creatinine 0.8 MG/DL (0.55-1.30) Estimat Glomerular Filtration Rate > 60 mL/min (>60) Glucose Level 142 MG/DL (74-106) H Calcium Level 8.6 MG/DL (8.5-10.1) Phosphorus Level 3.3 MG/DL (2.5-4.9) Magnesium Level 2.5 MG/DL (1.8-2.4) H Total Bilirubin 0.4 MG/DL (0.2-1.0) Aspartate Amino Transf (AST/SGOT) 172 U/L (15-37) H Alanine Aminotransferase (ALT/SGPT) 229 U/L (12-78) H Alkaline Phosphatase 153 U/L (46-116) H Total Protein 8.7 G/DL (6.4-8.2) H Albumin 2.1 G/DL (3.4-5.0) L Globulin 6.6 g/dL Albumin/Globulin Ratio 0.3 (1.0-2.7) L Lipase 653 U/L (73-393) H Subjective ROS Limited/Unobtainable: No Allergies: Coded Allergies: No Known Allergies (Unverified , 06/01/16) Objective Last 24 Hour Vital Signs Date Time Temp Pulse Resp B/P (MAP) Pulse Ox O2 Delivery O2 Flow Rate FiO2 07/29/18 12:00 80 07/29/18 12:00 97.8 79 20 133/90 (104) 96 07/29/18 09:45 105 121/84 07/29/18 09:00 Room Air 2.0 07/29/18 08:14 Nasal Cannula 3.0 32 07/29/18 08:13 95 Nasal Cannula 3.0 32 07/29/18 08:12 102 20 Nasal Cannula 3.0 32 07/29/18 08:00 97.9 105 18 121/84 (96) 95 07/29/18 08:00 106 07/29/18 04:00 97.6 66 18 111/62 (78) 99 07/29/18 04:00 96 07/29/18 02:04 97.7 77 18 132/77 (95) 100 07/29/18 00:00 88 07/29/18 00:00 98.5 80 19 130/82 (98) 100 07/28/18 21:00 98.7 93 20 128/89 (102) 96 07/28/18 21:00 Room Air 2.0 07/28/18 20:00 98.0 88 19 115/76 (89) 98 07/28/18 20:00 90 07/28/18 19:41 Nasal Cannula 3.0 32 07/28/18 19:40 106 21 Nasal Cannula 3.0 32 07/28/18 19:40 96 Nasal Cannula 3.0 32 07/28/18 19:00 97 28 138/81 (100) 94 07/28/18 18:00 98.9 88 25 121/78 (92) 98 07/28/18 17:16 92 123/84 07/28/18 17:00 94 28 123/84 (97) 94 07/28/18 16:00 Room Air 07/28/18 16:00 93 25 108/90 (96) 93 07/28/18 16:00 93 Intake and Output 07/28/18 07/29/18 19:00 07:00 Intake Total 850 ml 855 ml Output Total 560 ml 767 ml Balance 290 ml 88 ml Free Water 180 ml 250 ml IV Total 310 ml 200 ml Tube Feeding 360 ml 405 ml Output Urine Total 540 ml 760 ml Drainage Total 20 ml 7 ml # Bowel Movements 6 Laboratory Tests 07/29/18 06:45: White Blood Count 17.7H, Red Blood Count 3.80L, Hemoglobin 13.0L, Hematocrit 38.2L, Mean Corpuscular Volume 100H, Mean Corpuscular Hemoglobin 34.1H, Mean Corpuscular Hemoglobin Concent 34.0, Red Cell Distribution Width 13.2, Platelet Count 624H, Mean Platelet Volume 6.5, Neutrophils (%) (Auto) 81.1H, Lymphocytes (%) (Auto) 8.2L, Monocytes (%) (Auto) 4.8, Eosinophils (%) (Auto) 4.9H, Basophils (%) (Auto) 1.0, Sodium Level 141, Potassium Level 3.9, Chloride Level 105, Carbon Dioxide Level 27, Anion Gap 9, Blood Urea Nitrogen 23H, Creatinine 0.8, Estimat Glomerular Filtration Rate > 60, Glucose Level 103, Calcium Level 8.8, Phosphorus Level 3.1, Magnesium Level 2.2 Current Medications Medications (Trade) Dose Ordered Sig/[place] Route PRN Reason Start Time Stop Time Status Last Admin Dose Admin Acetaminophen (Tylenol) 650 mg Q4H PRN RECTAL Prn for Temp >100.5 07/28/18 21:05 08/14/18 21:04 Al Hydroxide/Mg Hydroxide (Mylanta) 15 ml Q6H PRN NG DYSPEPSIA 07/28/18 21:05 08/27/18 21:04 Chlorhexidine Gluconate (Estrella-Hex 2%) 1 applic DAILY@1999 TOPIC 07/29/18 20:00 08/15/18 19:59 Dextrose (Dextrose 50%) 25 ml Q30M PRN IV Hypoglycemia 07/28/18 21:05 08/17/18 21:04 Dextrose (Dextrose 50%) 50 ml Q30M PRN IV hypoglycemia 07/28/18 21:05 08/17/18 21:04 Diphenhydramine HCl (Benadryl) 12.5 mg Q6H PRN IVP Itching/Pruritis 07/28/18 21:05 08/27/18 21:04 Heparin Sodium (Porcine) (Heparin 5000 units/ml) 5,000 units Q12HR SUBQ 07/28/18 21:00 08/02/18 08:59 07/29/18 09:49 Insulin Aspart (NovoLOG) No Dose Q6HR SUBQ 07/29/18 00:00 08/17/18 12:59 Ipratropium [place] (Atrovent) 500 mcg Q4H PRN HHN Shortness of Breath 07/28/18 21:07 08/01/18 21:06 Ketorolac Tromethamine (Toradol 30mg) 30 mg Q6H PRN IV Moderate Pain (Pain Scale 4-6) 07/28/18 21:11 07/31/18 21:10 Levalbuterol HCl (Xopenex) 0.63 mg Q4H PRN HHN SOB/wheezing 07/28/18 21:07 08/01/18 21:06 Magnesium Hydroxide (Mom) 30 ml BIDPRN PRN NG Constipation 07/28/18 21:05 08/27/18 21:04 Meropenem 1 gm/ Sodium Chloride 100 ml @ 200 mls/hr Q8HR IVPB 07/28/18 22:00 08/02/18 05:59 07/29/18 15:02 Nicotine (Nicoderm) 1 patch Q24H TDERMAL 07/29/18 18:00 08/08/18 17:59 Ondansetron HCl (Zofran) 4 mg Q6H PRN IVP Nausea & Vomiting 07/28/18 21:05 08/27/18 21:04 Pantoprazole (Protonix) 40 mg EVERY 12 HOURS IVP 07/29/18 09:00 08/28/18 08:59 07/29/18 09:45 Propranolol HCl (Inderal) 40 mg BID GT 07/29/18 09:00 08/27/18 11:59 07/29/18 09:45 Parker Borjas MD Jul 29, 2018 15:50
--- NOTE | 2018-07-29 19:45 | NUR ---
NURSE NOTES: Received report from Zeina Leon RN. Patient is awake in bed, A/O x2. Sinus rhythm on patient monitor. No s/s of acute distress noted. Receiving 2L O2 via NC and saturating well. GT feeding of Nepro is currently held, will resume when residual is < 50 cc. Serrano catheter in place and draining well to gravity. JUNE drain intact, asymptomatic. Surgical kenneth intact, asymptomatic. Left upper arm PICC line noted, intact and patent. Bed locked in lowest position with side rails up x3. Call light left within reach. Will continue to monitor.
--- NOTE | 2018-07-29 19:45 | NUR ---
HAND-OFF: Report given to JAVIER Tian. Patient in stable condition.
--- NOTE | 2018-07-29 20:03 | NUR ---
NURSE NOTES: IGOR Liao informed previous nurse JAVIER Pastrana to resume tube feeding when residual is < 50 cc.
--- NOTE | 2018-07-29 20:30 | NUR ---
NURSE NOTES: Left message for Dr. Emily MD regarding WBC's trending up. Awaiting response.
[2018-07-29] MEDS: Dyna-Hex 2% Top Sol 2oz TOPIC SCH (21:39)
--- NOTE | 2018-07-29 23:06 | Cardiology Progress Note ---
Assessment/Plan Assessment/Plan 1, Paroxysmal atrial fibrillation, continue propranolol, not a suitable candidate for anticoag therapy. 2. Moderate pulmonary HTN. Subjective Subjective Sinus rhythm at rate of 97. Objective Last 24 Hour Vital Signs Date Time Temp Pulse Resp B/P (MAP) Pulse Ox O2 Delivery O2 Flow Rate FiO2 07/29/18 20:30 Nasal Cannula 3.0 32 07/29/18 20:30 98 Nasal Cannula 3.0 32 07/29/18 20:29 97 20 Nasal Cannula 3.0 32 07/29/18 20:00 97.9 79 18 121/86 (98) 98 07/29/18 19:38 78 07/29/18 17:25 86 109/78 07/29/18 16:00 86 07/29/18 16:00 97.5 86 18 109/75 (86) 97 07/29/18 12:00 80 07/29/18 12:00 97.8 79 20 133/90 (104) 96 07/29/18 09:45 105 121/84 07/29/18 09:00 Room Air 2.0 07/29/18 08:14 Nasal Cannula 3.0 32 07/29/18 08:13 95 Nasal Cannula 3.0 32 07/29/18 08:12 102 20 Nasal Cannula 3.0 32 07/29/18 08:00 97.9 105 18 121/84 (96) 95 07/29/18 08:00 106 07/29/18 04:00 97.6 66 18 111/62 (78) 99 07/29/18 04:00 96 07/29/18 02:04 97.7 77 18 132/77 (95) 100 07/29/18 00:00 88 07/29/18 00:00 98.5 80 19 130/82 (98) 100 Intake and Output 07/28/18 07/29/18 19:00 07:00 Intake Total 850 ml 855 ml Output Total 560 ml 767 ml Balance 290 ml 88 ml Free Water 180 ml 250 ml IV Total 310 ml 200 ml Tube Feeding 360 ml 405 ml Output Urine Total 540 ml 760 ml Drainage Total 20 ml 7 ml # Bowel Movements 6 2D Echo: LVEF 65%, Mild LVH, RVSP 50 mmHg, Mild MR/NY, Normal LVD Laboratory Tests Test 07/29/18 06:45 White Blood Count 17.7 K/UL (4.8-10.8) H Red Blood Count 3.80 M/UL (4.70-6.10) L Hemoglobin 13.0 G/DL (14.2-18.0) L Hematocrit 38.2 % (42.0-52.0) L Mean Corpuscular Volume 100 FL (80-99) H Mean Corpuscular Hemoglobin 34.1 PG (27.0-31.0) H Mean Corpuscular Hemoglobin Concent 34.0 G/DL (32.0-36.0) Red Cell Distribution Width 13.2 % (11.6-14.8) Platelet Count 624 K/UL (150-450) H Mean Platelet Volume 6.5 FL (6.5-10.1) Neutrophils (%) (Auto) 81.1 % (45.0-75.0) H Lymphocytes (%) (Auto) 8.2 % (20.0-45.0) L Monocytes (%) (Auto) 4.8 % (1.0-10.0) Eosinophils (%) (Auto) 4.9 % (0.0-3.0) H Basophils (%) (Auto) 1.0 % (0.0-2.0) Sodium Level 141 MMOL/L (136-145) Potassium Level 3.9 MMOL/L (3.5-5.1) Chloride Level 105 MMOL/L (98-107) Carbon Dioxide Level 27 MMOL/L (21-32) Anion Gap 9 mmol/L (5-15) Blood Urea Nitrogen 23 mg/dL (7-18) H Creatinine 0.8 MG/DL (0.55-1.30) Estimat Glomerular Filtration Rate > 60 mL/min (>60) Glucose Level 103 MG/DL (74-106) Calcium Level 8.8 MG/DL (8.5-10.1) Phosphorus Level 3.1 MG/DL (2.5-4.9) Magnesium Level 2.2 MG/DL (1.8-2.4) Objective HEENT: normocephalic, atraumatic, anicteric, PERRL, dry mucous membrane Neck: no JVD, no carotid bruit. Respiratory/Chest: chest wall non-tender, lungs clear, normal breath sounds, no respiratory distress, no accessory muscle use Cardiovascular/Chest: Normal S1S2, no murmurs, gallops or rubs, rate,regular rhythm Abdomen: normal bowel sounds, soft, no organomegaly, no mass, other - mild epigastric ttp Extremities: normal range of motion, non-tender, normal inspection, no calf tenderness, normal capillary refill, non-pitting Skin Exam: normal pigmentation, warm/dry Neurologic: no motor/sensory deficits, alert, oriented x 3, responsive, normal mood/affect Luis Patel MD Jul 29, 2018 23:06
[2018-07-30] VITALS: BP 119/79
[2018-07-30 04:00] VITALS: BP 125/81
[2018-07-30] MEDS: NovoLOG Insulin Flexpen SUBQ SCH ×4 (05:45→17:05)
[2018-07-30 08:00] VITALS: BP 115/79
--- NOTE | 2018-07-30 08:00 | NUR ---
HAND-OFF: Report given to Johnny Torres RN.
--- NOTE | 2018-07-30 08:00 | NUR ---
NURSE NOTES: Report received from Junior HERRERA.Pt resting in bed awake,alert disoriented on and off,more like forgetful.,no signs of resp distress, on 2L NC,no signs of pain or discomfort,SR on the monitor,GTF Glucerna 1.5 at 60 ,on hold ,at this time,residual checked,10 ml,feeding resumed,Serrano cath draining to yellow urine, abd incision dry and intact with kenneth, covered with abd binder,JUNE x1 intact with scant drainage,skin warm and dry,AVI PICC line intact SR up x2 HOB elevated ,bed lock in lowest position will continue with plans of care.
--- NOTE | 2018-07-30 08:21 | NUR ---
RADIOLOGY: CXR COMPLETED 0800 HRS. NF
--- NOTE | 2018-07-30 09:00 | NUR ---
NURSE NOTES: at bedside updated re pt's status and plans of care.
[2018-07-30] MEDS: Pantoprazole Inj IVP SCH ×2 (09:24→21:30)
[2018-07-30 09:26] LABS: HEMATOCRIT 40.8 % (42.0-52.0); HEMOGLOBIN 13.9 G/DL (14.2-18.0); MEAN CORPUSCULAR VOLUME 99 FL (80-99); PLATELET COUNT 598 K/UL (150-450); RED CELL DISTRIBUTION WIDTH 13.2 % (11.6-14.8); WHITE BLOOD COUNT 19.7 K/UL (4.8-10.8)
[2018-07-30] MEDS: Propranolol 40mg tab GT SCH ×2 (09:29→17:04)
[2018-07-30] MEDS: Heparin 5000 units/ml inj SUBQ SCH ×2 (09:41→21:31)
[2018-07-30 09:47] LABS: ANION GAP 6 mmol/L (5-15); BLOOD UREA NITROGEN 30 mg/dL (7-18); CALCIUM 9.6 MG/DL (8.5-10.1); CARBON DIOXIDE 28 MMOL/L (21-32); CHLORIDE 107 MMOL/L (98-107); CREATININE 0.8 MG/DL (0.55-1.30); POTASSIUM 4.6 MMOL/L (3.5-5.1); SODIUM 141 MMOL/L (136-145)
--- NOTE | 2018-07-30 10:22 | GI Progress Note ---
Assessment/Plan Problems: (1) Abnormal LFTs ICD Codes: R79.89 - Other specified abnormal findings of blood chemistry SNOMED: 625877933 (2) Cholecystitis, acute ICD Codes: K81.0 - Acute cholecystitis SNOMED: 86546648 (3) Hepatitis C ICD Codes: B19.20 - Unspecified viral hepatitis C without hepatic coma SNOMED: 19413960 (4) Fatty liver ICD Codes: K76.0 - Fatty (change of) liver, not elsewhere classified SNOMED: 406223001 (5) Alcoholic pancreatitis ICD Codes: K85.20 - Alcohol induced acute pancreatitis without necrosis or infection SNOMED: 070929960 (6) Pancreatitis, acute ICD Codes: K85.90 - Acute pancreatitis without necrosis or infection, unspecified SNOMED: 116814749 Status: unchanged Status Narrative Discussed with Dr. Yip. Assessment/Plan SUMMARY OF FINDINGS: 1. 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 2. Status post ERCP with sphincterotomy, balloon assistance sludge and some pus extraction from the common bile duct and then stent placement. s/p open jocelyn, now in ICU with pancreatitis hepatitis C positive Pancreatitis s/p PEG RECOMMENDATIONS: Continue G-tube feedings per RD to goal Trend lipase fu labs The patient will need repeat ERCP in 6 to 8 weeks for stent removal. outpatient Hep C tx The patient was seen and examined at bedside and all new and available data was reviewed in the patients chart. I agree with the above findings, impression and plan. (Patient seen earlier today. Signature stamp does not reflect patient encounter time.). - Toñito Yip MD Subjective Gastrointestinal/Abdominal: Reports: no symptoms Subjective limited, more awake and alert Objective Last 24 Hour Vital Signs Date Time Temp Pulse Resp B/P (MAP) Pulse Ox O2 Delivery O2 Flow Rate FiO2 07/30/18 09:29 91 115/79 07/30/18 07:39 96 Nasal Cannula 2.0 28 07/30/18 07:39 Nasal Cannula 2.0 28 07/30/18 07:39 86 16 Nasal Cannula 2.0 28 07/30/18 04:00 97.5 77 18 125/81 (96) 96 07/30/18 03:23 78 07/30/18 00:00 96.5 81 18 119/79 (92) 95 07/29/18 23:20 82 07/29/18 21:00 Room Air 2.0 07/29/18 20:30 Nasal Cannula 3.0 32 07/29/18 20:30 98 Nasal Cannula 3.0 32 07/29/18 20:29 97 20 Nasal Cannula 3.0 32 07/29/18 20:00 97.9 79 18 121/86 (98) 98 07/29/18 19:38 78 07/29/18 17:25 86 109/78 07/29/18 16:00 86 07/29/18 16:00 97.5 86 18 109/75 (86) 97 07/29/18 12:00 80 07/29/18 12:00 97.8 79 20 133/90 (104) 96 Intake and Output 07/29/18 07/30/18 18:59 06:59 Intake Total 80 ml 200 ml Output Total 460 ml 400 ml Balance -380 ml -200 ml IV Total 200 ml Tube Feeding 80 ml 0 ml Output Urine Total 450 ml 400 ml Drainage Total 10 ml 0 ml # Bowel Movements 1 Laboratory Tests Test 07/30/18 08:25 White Blood Count 19.7 K/UL (4.8-10.8) H Red Blood Count 4.10 M/UL (4.70-6.10) L Hemoglobin 13.9 G/DL (14.2-18.0) L Hematocrit 40.8 % (42.0-52.0) L Mean Corpuscular Volume 99 FL (80-99) Mean Corpuscular Hemoglobin 33.8 PG (27.0-31.0) H Mean Corpuscular Hemoglobin Concent 34.0 G/DL (32.0-36.0) Red Cell Distribution Width 13.2 % (11.6-14.8) Platelet Count 598 K/UL (150-450) H Mean Platelet Volume 6.6 FL (6.5-10.1) Neutrophils (%) (Auto) % (45.0-75.0) Lymphocytes (%) (Auto) % (20.0-45.0) Monocytes (%) (Auto) % (1.0-10.0) Eosinophils (%) (Auto) % (0.0-3.0) Basophils (%) (Auto) % (0.0-2.0) Differential Total Cells Counted 100 Neutrophils % (Manual) 88 % (45-75) H Lymphocytes % (Manual) 6 % (20-45) L Monocytes % (Manual) 4 % (1-10) Eosinophils % (Manual) 2 % (0-3) Basophils % (Manual) 0 % (0-2) Band Neutrophils 0 % (0-8) Platelet Estimate Increased H Platelet Morphology Normal Sodium Level 141 MMOL/L (136-145) Potassium Level 4.6 MMOL/L (3.5-5.1) Chloride Level 107 MMOL/L (98-107) Carbon Dioxide Level 28 MMOL/L (21-32) Anion Gap 6 mmol/L (5-15) Blood Urea Nitrogen 30 mg/dL (7-18) H Creatinine 0.8 MG/DL (0.55-1.30) Estimat Glomerular Filtration Rate > 60 mL/min (>60) Glucose Level 93 MG/DL (74-106) Calcium Level 9.6 MG/DL (8.5-10.1) Height (Feet): 5 Height (Inches): 8.00 Weight (Pounds): 159 General Appearance: WD/WN, no apparent distress, alert Cardiovascular: normal rate Respiratory/Chest: normal breath sounds, no respiratory distress Abdominal Exam: normal bowel sounds, non tender, soft Extremities: non-tender Sonja Neely NP Jul 30, 2018 10:22
[2018-07-30 12:06] VITALS: BP 116/78
--- NOTE | 2018-07-30 12:09 | Diagnostic Imaging Report ---
Indication: Shortness of breath Technique: One view of the chest Comparison: 07/27/2018 Findings: Left arm PICC remains. Increased pleural fluid is seen on the right. There is persistent parenchymal opacity in the right. Left lung and pleural space remain clear. Old healed right clavicular fracture deformity again demonstrated. Postsurgical changes of the abdomen noted Impression: Worsening right pleural effusion, over 3 days Other stable findings as described
--- NOTE | 2018-07-30 12:57 | General Progress Note ---
Assessment/Plan Assessment/Plan #Sepsis #Acute purulent gangrenous cholecystitis. #klebsiella cholecystitis #acute Hypoxic respiratory failure #Acute Metabolic Encephalopathy - due to alcohol withdrawal and sepsis - meropenem, Diflucan - bcx x 2 ngtd - s/p ercp 07/12 - gen surg following s/p lap jocelyn converted to open jocelyn 07/12 - extubated on 07/16/18 - off o2 ncl - pulm following appreciated - pain control - appreciate surg recs - tpn -NG tube removed -Awaiting PEG -PT ordered #Acute Blood Loss Anemia - due to recent surgery - no overt bleeding noted currently - hgb 6.8 07/15, transfused 2U, 9.7 (07/16) - stable #Pleural Effusions - b/l - per mrcp - stable - pulm consult appreciated #Alcohol Pancreatitis #Intractable abdominal pain #intractable nausea/vomiting #Transaminitis #Alcohol Hepatitis #Alcohol withdrawals #Fatty Liver Disease #Hepatitis C - LFTs 446/532 - Lipase 687 - due to alcohol abuse - INR 1.0 - discriminant function, 4.5 , no need for steroids - US abd completed and reviewed, showing fatty liver disease. GS present, no obstruction noted - ppi - PRN antiemetics, zofran prn - Banana bag - close lab monitoring - IVF - monitor carefully for withdrawals - tube feeds held due to worsening pancreatitis - TPN - Per GI, will need ERCP in 6-8 weeks for stent removal #Failure to thrive - due to alcohol withdrawals and the above - alcoholic pancreatitis - fluids #Alcohol Abuse - educated on cessation for 15 mins - patient states he understands and will try to quit - RN notified to monitor carefully with withdrawals - prn ativan - ciwa #Uncontrolled HTN and tachycardia overnight -all oral BP meds held for now -continue metoprolol IV q6h -transferred to ICU, on amiodarone drip #Tobacco abuse - smokes 1ppd - educated on smoking cessation for over 15 mins, states he understands the risks of smoking and will try to quit #Dysphagia -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 -strict NPO recommended at this time -Continue tube feeds via PEG diet: continue TPN Subjective Date patient seen: Jul 30, 2018 Time patient seen: 10:15 ROS Limited/Unobtainable: Yes Cardiovascular: Denies: chest pain, irregular heart rate Respiratory: Denies: cough, shortness of breath, wheezing Gastrointestinal/Abdominal: Denies: abdomen distended, abdominal pain Allergies: Coded Allergies: No Known Allergies (Unverified , 06/01/16) Subjective Medicine follow up for multiple medical problems including acute gangrenous cholecystitis, acute hypoxic respiratory failure, acute encephalopathy No new issues overnight. Objective Last 24 Hour Vital Signs Date Time Temp Pulse Resp B/P (MAP) Pulse Ox O2 Delivery O2 Flow Rate FiO2 07/30/18 12:06 97.9 80 21 116/78 (91) 99 07/30/18 12:00 81 07/30/18 09:29 91 115/79 07/30/18 09:00 Room Air 2.0 07/30/18 08:00 98.7 91 23 115/79 (91) 95 07/30/18 08:00 94 07/30/18 07:39 96 Nasal Cannula 2.0 28 07/30/18 07:39 Nasal Cannula 2.0 28 07/30/18 07:39 86 16 Nasal Cannula 2.0 28 07/30/18 04:00 97.5 77 18 125/81 (96) 96 07/30/18 03:23 78 07/30/18 00:00 96.5 81 18 119/79 (92) 95 07/29/18 23:20 82 07/29/18 21:00 Room Air 2.0 07/29/18 20:30 Nasal Cannula 3.0 32 07/29/18 20:30 98 Nasal Cannula 3.0 32 07/29/18 20:29 97 20 Nasal Cannula 3.0 32 07/29/18 20:00 97.9 79 18 121/86 (98) 98 07/29/18 19:38 78 07/29/18 17:25 86 109/78 07/29/18 16:00 86 07/29/18 16:00 97.5 86 18 109/75 (86) 97 Intake and Output 07/29/18 07/30/18 18:59 06:59 Intake Total 80 ml 200 ml Output Total 460 ml 400 ml Balance -380 ml -200 ml IV Total 200 ml Tube Feeding 80 ml 0 ml Output Urine Total 450 ml 400 ml Drainage Total 10 ml 0 ml # Bowel Movements 1 Laboratory Tests 07/30/18 08:25: White Blood Count 19.7H, Red Blood Count 4.10L, Hemoglobin 13.9L, Hematocrit 40.8L, Mean Corpuscular Volume 99, Mean Corpuscular Hemoglobin 33.8H, Mean Corpuscular Hemoglobin Concent 34.0, Red Cell Distribution Width 13.2, Platelet Count 598H, Mean Platelet Volume 6.6, Neutrophils (%) (Auto) , Lymphocytes (%) ( Auto) , Monocytes (%) (Auto) , Eosinophils (%) (Auto) , Basophils (%) (Auto) , Differential Total Cells Counted 100, Neutrophils % (Manual) 88H, Lymphocytes % (Manual) 6L, Monocytes % (Manual) 4, Eosinophils % (Manual) 2, Basophils % ( Manual) 0, Band Neutrophils 0, Platelet Estimate IncreasedH, Platelet Morphology Normal, Sodium Level 141, Potassium Level 4.6, Chloride Level 107, Carbon Dioxide Level 28, Anion Gap 6, Blood Urea Nitrogen 30H, Creatinine 0.8, Estimat Glomerular Filtration Rate > 60, Glucose Level 93, Calcium Level 9.6 Height (Feet): 5 Height (Inches): 8.00 Weight (Pounds): 159 General Appearance: alert Neck: normal alignment, supple Cardiovascular: normal rate, regular rhythm Respiratory/Chest: lungs clear, normal breath sounds Tomás Cruz MD Jul 30, 2018 12:57
--- NOTE | 2018-07-30 13:34 | Pulmonology Progress Note ---
Assessment/Plan Problems: (1) Cholecystitis, acute (2) Alcoholic pancreatitis (3) Pancreatitis, acute (4) Alcohol abuse (5) Abnormal LFTs (6) Gangrenous cholecystitis (7) Respiratory disorder with ventilator dependence Assessment & Plan: Extubated and TTF (8) Blood loss anemia (9) Pneumonia (10) Hepatitis C (11) Fatty liver Assessment/Plan Thoracentesis evaluation ---> studies sent CT CHESTOptimize pulmonary hygiene/mobilize as tolerated Titrate down FiO2 to keep SaO2 > 90% PRN HHN's Abx (Jair) per ID, F/U Cx's and monitor WCt GTF's GI recs Montor volumes and renal function DVT Px: Hep SQ FC Subjective Allergies: Coded Allergies: No Known Allergies (Unverified , 06/01/16) Subjective AFVSS on RA WCt inc and CXR with inc effusion Carlos TF"s, denies cough/congestion/SOB/wheezing, no FC Objective Last 24 Hour Vital Signs Date Time Temp Pulse Resp B/P (MAP) Pulse Ox O2 Delivery O2 Flow Rate FiO2 07/30/18 12:06 97.9 80 21 116/78 (91) 99 07/30/18 12:00 81 07/30/18 09:29 91 115/79 07/30/18 09:00 Room Air 2.0 07/30/18 08:00 98.7 91 23 115/79 (91) 95 07/30/18 08:00 94 07/30/18 07:39 96 Nasal Cannula 2.0 28 07/30/18 07:39 Nasal Cannula 2.0 28 07/30/18 07:39 86 16 Nasal Cannula 2.0 28 07/30/18 04:00 97.5 77 18 125/81 (96) 96 07/30/18 03:23 78 07/30/18 00:00 96.5 81 18 119/79 (92) 95 07/29/18 23:20 82 07/29/18 21:00 Room Air 2.0 07/29/18 20:30 Nasal Cannula 3.0 32 07/29/18 20:30 98 Nasal Cannula 3.0 32 07/29/18 20:29 97 20 Nasal Cannula 3.0 32 07/29/18 20:00 97.9 79 18 121/86 (98) 98 07/29/18 19:38 78 07/29/18 17:25 86 109/78 07/29/18 16:00 86 07/29/18 16:00 97.5 86 18 109/75 (86) 97 Intake and Output 07/29/18 07/30/18 18:59 06:59 Intake Total 80 ml 200 ml Output Total 460 ml 400 ml Balance -380 ml -200 ml IV Total 200 ml Tube Feeding 80 ml 0 ml Output Urine Total 450 ml 400 ml Drainage Total 10 ml 0 ml # Bowel Movements 1 General Appearance: WD/WN, no acute distress HEENT: normocephalic, atraumatic, anicteric, mucous membranes moist Respiratory/Chest: chest wall non-tender, lungs clear, normal breath sounds, no respiratory distress, no accessory muscle use Cardiovascular: normal peripheral pulses, normal rate, regular rhythm Abdomen: normal bowel sounds, soft, non tender, no organomegaly, non distended , no mass, other - GT Extremities: no cyanosis, no clubbing, no edema Laboratory Tests 07/30/18 08:25: White Blood Count 19.7H, Red Blood Count 4.10L, Hemoglobin 13.9L, Hematocrit 40.8L, Mean Corpuscular Volume 99, Mean Corpuscular Hemoglobin 33.8H, Mean Corpuscular Hemoglobin Concent 34.0, Red Cell Distribution Width 13.2, Platelet Count 598H, Mean Platelet Volume 6.6, Neutrophils (%) (Auto) , Lymphocytes (%) ( Auto) , Monocytes (%) (Auto) , Eosinophils (%) (Auto) , Basophils (%) (Auto) , Differential Total Cells Counted 100, Neutrophils % (Manual) 88H, Lymphocytes % (Manual) 6L, Monocytes % (Manual) 4, Eosinophils % (Manual) 2, Basophils % ( Manual) 0, Band Neutrophils 0, Platelet Estimate IncreasedH, Platelet Morphology Normal, Sodium Level 141, Potassium Level 4.6, Chloride Level 107, Carbon Dioxide Level 28, Anion Gap 6, Blood Urea Nitrogen 30H, Creatinine 0.8, Estimat Glomerular Filtration Rate > 60, Glucose Level 93, Calcium Level 9.6 Current Medications Medications (Trade) Dose Ordered Sig/[place] Route PRN Reason Start Time Stop Time Status Last Admin Dose Admin Acetaminophen (Tylenol) 650 mg Q4H PRN RECTAL Prn for Temp >100.5 07/28/18 21:05 2/26/19 21:04 Al Hydroxide/Mg Hydroxide (Mylanta) 15 ml Q6H PRN NG DYSPEPSIA 07/28/18 21:05 08/27/18 21:04 Chlorhexidine Gluconate (Estrella-Hex 2%) 1 applic DAILY@2000 TOPIC 07/29/18 20:00 08/15/18 19:59 07/29/18 21:39 Dextrose (Dextrose 50%) 25 ml Q30M PRN IV Hypoglycemia 07/28/18 21:05 08/17/18 21:04 Dextrose (Dextrose 50%) 50 ml Q30M PRN IV hypoglycemia 07/28/18 21:05 08/17/18 21:04 Diphenhydramine HCl (Benadryl) 12.5 mg Q6H PRN IVP Itching/Pruritis 07/28/18 21:05 08/27/18 21:04 Heparin Sodium (Porcine) (Heparin 5000 units/ml) 5,000 units Q12HR SUBQ 07/28/18 21:00 08/02/18 08:59 07/30/18 09:41 Insulin Aspart (NovoLOG) No Dose Q6HR SUBQ 07/29/18 00:00 08/17/18 12:59 Ipratropium [place] (Atrovent) 500 mcg Q4H PRN HHN Shortness of Breath 07/28/18 21:07 08/01/18 21:06 Ketorolac Tromethamine (Toradol 30mg) 30 mg Q6H PRN IV Moderate Pain (Pain Scale 4-6) 07/28/18 21:11 07/31/18 21:10 07/29/18 19:51 Levalbuterol HCl (Xopenex) 0.63 mg Q4H PRN HHN SOB/wheezing 07/28/18 21:07 08/01/18 21:06 Magnesium Hydroxide (Mom) 30 ml BIDPRN PRN NG Constipation 07/28/18 21:05 08/27/18 21:04 Meropenem 1 gm/ Sodium Chloride 100 ml @ 200 mls/hr Q8HR IVPB 07/28/18 22:00 08/02/18 05:59 07/30/18 05:34 Nicotine (Nicoderm) 1 patch Q24H TDERMAL 07/29/18 18:00 08/08/18 17:59 07/29/18 17:24 Ondansetron HCl (Zofran) 4 mg Q6H PRN IVP Nausea & Vomiting 07/28/18 21:05 08/27/18 21:04 Pantoprazole (Protonix) 40 mg EVERY 12 HOURS IVP 07/29/18 09:00 08/28/18 08:59 07/30/18 09:24 Propranolol HCl (Inderal) 40 mg BID GT 07/29/18 09:00 08/27/18 11:59 07/30/18 09:29 Trenton Ladd MD Jul 30, 2018 13:34
--- NOTE | 2018-07-30 13:48 | NUR ---
RD ASSESSMENT & RECOMMENDATIONS SEE CARE ACTIVITY FOR COMPLETE ASSESSMENT DAILY ESTIMATED NEEDS: Needs based on Pancreatitis, 72.6kg 25-30 kcals/kg 9896-0634 total kcals 1-1.5 g protein/kg 73-109 g total protein 25-30 mL/kg 1919-0870 total fluid mLs NUTRITION DIAGNOSIS: * Altered nutrition-related lab values R/T liver dysfunction, pancreatitis, clinical condition as evidenced by elev LFTs, elev T bili, now wnl, Hep C antibody >11, elev lipase and amylase, low Na (130-> wnl), low K 3.3-> wnl. * Swallowing difficulty R/T dysphagia, respiratory status as evidenced by now extubated, failed VSS, s/p PEG placement, TPN is DC'd. CURRENT DIET:NPO CURRENT TF: Glucerna 1.5 @60ml ENTERAL NUTRITION RECOMMENDATIONS: Osmolite 1.2 @ 65ml/hr x 24 hrs to provide 1560ml, 1872kcal, 86g prot, 1279ml free water * W/ GI access and when medically appropriate to feed via GI, initiate TF. * Initiate Osmolite 1.2 @ 15ml/hr x 6 hrs * Advance 10ml q 4-6 hrs as tolerated to goal rate. * HOB over 30 degrees/ water flush per MD * @ goal provides 23% fat of total kcal ADDITIONAL RECOMMENDATIONS: 1) Monitor lytes, LFTs, BGs daily w/ TF 2) Monitor residuals/ Rec above TF change 3) Calibrated bedscale wt for accurate CBW-> pt w/ added P200 4) Monitor lipase and LFTs 5) Monitor tolerance to Osmolite + need for iss . .
--- NOTE | 2018-07-30 14:36 | NUR ---
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 97.9 HR 80 RR 21 B/P 116/78 2L NC WBC 19.7 BUN 30 CXR= WORSENING RIGHT PLEURAL EFFUSION IS: MEROPENEM IV PROTONIX HEPARIN SUBC TELE STATUS
--- NOTE | 2018-07-30 15:59 | Pre-Procedure Note/Attestation ---
Pre-Procedure Note/Attestation Complete Prior to Procedure Planned Procedure: right Procedure Narrative: thoracentesis Indications for Procedure Pre-Operative Diagnosis: R pleural effusion Attestation I attest that I discussed the nature of the procedure; its benefits; risks and complications; and alternatives (and the risks and benefits of such alternatives ), prior to the procedure, with the patient (or the patient's legal credit and collections representative). I attest that, if there was a reasonable possibility of needing a blood transfusion, the patient (or the patient's legal credit and collections representative) was given the [facility] standardized written summary, pursuant to the Bill Mirella Blood Safety Act ([place] Health and Safety Code # 1645, as amended). I attest that I re-evaluated the patient just prior to the surgery and that there has been no change in the patient's H&P, except as documented below: Discussed by phone with pt's. at 1600 Raciel Lockwood MD Jul 30, 2018 15:59
[2018-07-30 16:00] VITALS: BP 116/79
--- NOTE | 2018-07-30 16:00 | NUR ---
NURSE NOTES: Thoracentesis done at bedside with 500 ml out,procedure tolerated well.
--- NOTE | 2018-07-30 16:09 | Brief Operative Note ---
Immediate Post Operative Note Operative Note Pre-op Diagnosis: R pleural effusion Procedure: R thoracentesis Post-op Diagnosis: same Post-op Diagnosis: same as pre-op Findings: consistent w/pre-op dx studies Surgeon: Andreina LOCKWOOD Specimen: yes - cloudy orange fluid sent to lab Complications: none Fluids: none Implant(s) used?: No Raciel Lockwood MD Jul 30, 2018 16:09
--- NOTE | 2018-07-30 17:12 | Diagnostic Imaging Report ---
Indication: Postthoracentesis Technique: One view of the chest Comparison: 07/30/2018 Findings: Interim resolution of previously demonstrated right pleural effusion, postthoracentesis. Hazy infiltrates are seen throughout the right mid and lower lung. The left lung and pleural space remain clear. Left arm PICC remains. Impression: Resolved right pleural effusion, post thoracentesis. No radiographically evident complication Persistent right mid and lower lung infiltrates
--- NOTE | 2018-07-30 17:22 | Diagnostic Imaging Report ---
Indications: Pleural effusion Technique: Informed consent obtained prior to commencement of the procedure from the patient's . Ultrasound used to localize optimal puncture site. Sterile prepping and draping right chest. Local anesthesia with 1% lidocaine. Under real-time ultrasound guidance, puncture pleural space using thoracentesis needle. Stylet removed. Catheter placed to vacuum bottle suction. Total 500 milliliters of fluid aspirated. Patient tolerated procedure well, without immediate complication. A specimen was sent to the lab. Findings: Followup sonography demonstrates complete resolution of pleural fluid. Impression: Successful ultrasound-guided thoracentesis, yielding 500 milliliters of cloudy orange fluid
--- NOTE | 2018-07-30 17:59 | Infectious Diseases Prog Note ---
Assessment/Plan Assessment/Plan ASSESSMENT AND PLAN: 1. sepsis, klebsiella cholecystitis, enterobacter pna, leukocytosis, fevers, sirs, fungal uti, fungemia risk, elevated lft's/lipase, pancreatitis, leukocytosis persists, s/p thoracentesis - meropenem and vancomycin, s/p anti-fungal treatment - check CT abdomen and pelvis for persistent leukocytosis to rule out abscess - monitor labs, recheck cultures 3. Smoking use. 4. Anemia. 5. Thrombocytosis. 6. No history of diabetes, hypertension, but he is on Norvasc. 7. No known allergies. 8. Social history positive for smoking and alcohol use. No history of intravenous drug abuse. 9. MAR was noted. 10. Case discussed with RN. 11. Continue treatment per primary consultants. 12. Case discussed at length the ICU nurse, the patient currently in ICU. 13. Continue skin care protocol and pulmonary treatments for now. Subjective Constitutional: Denies: fever HEENT: Denies: congestion Respiratory: Denies: shortness of breath Cardiovascular: Denies: chest pain Gastrointestinal/Abdominal: Denies: nausea, vomiting, diarrhea Genitourinary: Reports: other - + melchor Neurologic: Denies: headache Psychiatric: Denies: depression Skin: Denies: rash Hematologic: Denies: bleeding Musculoskeletal: Denies: pain Allergies: Coded Allergies: No Known Allergies (Unverified , 06/01/16) Objective Vital Signs Last 24 Hour Vital Signs Date Time Temp Pulse Resp B/P (MAP) Pulse Ox O2 Delivery O2 Flow Rate FiO2 07/30/18 17:04 80 116/78 07/30/18 12:06 97.9 80 21 116/78 (91) 99 07/30/18 12:00 81 07/30/18 09:29 91 115/79 07/30/18 09:00 Room Air 2.0 07/30/18 08:00 98.7 91 23 115/79 (91) 95 07/30/18 08:00 94 07/30/18 07:39 96 Nasal Cannula 2.0 28 07/30/18 07:39 Nasal Cannula 2.0 28 07/30/18 07:39 86 16 Nasal Cannula 2.0 28 07/30/18 04:00 97.5 77 18 125/81 (96) 96 07/30/18 03:23 78 07/30/18 00:00 96.5 81 18 119/79 (92) 95 07/29/18 23:20 82 07/29/18 21:00 Room Air 2.0 07/29/18 20:30 Nasal Cannula 3.0 32 07/29/18 20:30 98 Nasal Cannula 3.0 32 07/29/18 20:29 97 20 Nasal Cannula 3.0 32 07/29/18 20:00 97.9 79 18 121/86 (98) 98 07/29/18 19:38 78 Height (Feet): 5 Height (Inches): 8.00 Weight (Pounds): 159 General Appearance: no acute distress HEENT: normocephalic, atraumatic, anicteric, mucous membranes moist Respiratory/Chest: no accessory muscle use, decreased breath sounds, crackles/ rales, rhonchi - bilaterally Cardiovascular: normal rate, regular rhythm, no gallop/murmur Abdomen: normal bowel sounds, soft, non tender, no organomegaly, non distended Genitourinary: other - + melchor Extremities: no cyanosis Skin: no rash 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 Apparent elevation of the right hemidiaphragm is again noted. The left lung demonstrates a very faint opacity in the left midlung which is not evident previously. However, interstitial congestion in the left lung has improved. Impression: Persistent right-sided pleural effusion and fairly extensive parenchymal infiltrate or edema Improved left lung interstitial congestion. Focal patchy left lung abnormality was not evident previously, however, and could represent a small area of infiltrate Chest x-ray - 07/22/18 - COMPARISON: Chest x-ray 07/19/18 837 FINDINGS: Lungs: Increasing opacities of the right lung. Pleural space: Slightly increasing right pleural effusion. No pneumothorax. Heart: Unremarkable. No cardiomegaly. Mediastinum: Unremarkable. Bones/joints: Unremarkable. Tubes, lines and devices: Left PICC line tip appears further advanced into the right atrium. NG tube traverses diaphragm, tip is not seen. Upper abdomen: Midepigastric gastric surgical clips. IMPRESSION: 1. Left PICC line tip appears further advanced into the right atrium. 2. Increasing opacities of the right lung. 3. Slightly increasing right pleural effusion. 07/24/18 - chest x-ray - A single view chest radiograph was obtained. Findings: Hazy opacity at the right lung base may be a pleural effusion. Heart is enlarged. There is suggestion of mild interstitial edema. PICC line is present on the left. IMPRESSION: Suspected mild interstitial edema and a small right pleural effusion. Chest x-ray - 07/27/18- Comparison: 07/26/2018 A single view chest radiograph was obtained. Findings: Patchy infiltrate noted in the right lung. There is less right pleural effusion present. Heart is mildly enlarged. PICC line is noted. IMPRESSION: Diminished right pleural effusion which may have 5 decreased or shifted. Patchy right basal and perihilar infiltrate noted Chest x-ray - 07/30/18 Comparison: 07/30/2018 Findings: Interim resolution of previously demonstrated right pleural effusion, postthoracentesis. Hazy infiltrates are seen throughout the right mid and lower lung. The left lung and pleural space remain clear. Left arm PICC remains. Impression: Resolved right pleural effusion, post thoracentesis. No radiographically evident complication Persistent right mid and lower lung infiltrates Microbiology Date/Time Source Procedure Growth Status 07/18/18 20:25 Blood Blood Culture - Final NO GROWTH AFTER 5 DAYS Complete 07/12/18 20:50 Peritoneal Fluid Gram Stain - Final Complete 07/12/18 20:50 Peritoneal Fluid Aerobic Culture - Final NO GROWTH Complete 07/12/18 20:50 Peritoneal Fluid Anaerobic Culture - Final NO GROWTH AFTER 5 DAYS Complete 07/21/18 14:45 Sputum Induced Gram Stain - Final Complete 07/21/18 14:45 Sputum Culture - Final Nery Albicans Usual Respiratory Carolyn Complete 07/21/18 04:00 Urine,Clean Catch Urine Culture - Final Yeast Species Complete Laboratory Tests Test 07/30/18 08:25 White Blood Count 19.7 K/UL (4.8-10.8) H Red Blood Count 4.10 M/UL (4.70-6.10) L Hemoglobin 13.9 G/DL (14.2-18.0) L Hematocrit 40.8 % (42.0-52.0) L Mean Corpuscular Volume 99 FL (80-99) Mean Corpuscular Hemoglobin 33.8 PG (27.0-31.0) H Mean Corpuscular Hemoglobin Concent 34.0 G/DL (32.0-36.0) Red Cell Distribution Width 13.2 % (11.6-14.8) Platelet Count 598 K/UL (150-450) H Mean Platelet Volume 6.6 FL (6.5-10.1) Neutrophils (%) (Auto) % (45.0-75.0) Lymphocytes (%) (Auto) % (20.0-45.0) Monocytes (%) (Auto) % (1.0-10.0) Eosinophils (%) (Auto) % (0.0-3.0) Basophils (%) (Auto) % (0.0-2.0) Differential Total Cells Counted 100 Neutrophils % (Manual) 88 % (45-75) H Lymphocytes % (Manual) 6 % (20-45) L Monocytes % (Manual) 4 % (1-10) Eosinophils % (Manual) 2 % (0-3) Basophils % (Manual) 0 % (0-2) Band Neutrophils 0 % (0-8) Platelet Estimate Increased H Platelet Morphology Normal Sodium Level 141 MMOL/L (136-145) Potassium Level 4.6 MMOL/L (3.5-5.1) Chloride Level 107 MMOL/L (98-107) Carbon Dioxide Level 28 MMOL/L (21-32) Anion Gap 6 mmol/L (5-15) Blood Urea Nitrogen 30 mg/dL (7-18) H Creatinine 0.8 MG/DL (0.55-1.30) Estimat Glomerular Filtration Rate > 60 mL/min (>60) Glucose Level 93 MG/DL (74-106) Calcium Level 9.6 MG/DL (8.5-10.1) Current Medications Medications (Trade) Dose Ordered Sig/[place] Route PRN Reason Start Time Stop Time Status Last Admin Dose Admin Acetaminophen (Tylenol) 650 mg Q4H PRN RECTAL Prn for Temp >100.5 07/28/18 21:05 08/14/18 21:04 Al Hydroxide/Mg Hydroxide (Mylanta) 15 ml Q6H PRN NG DYSPEPSIA 07/28/18 21:05 08/27/18 21:04 Chlorhexidine Gluconate (Estrella-Hex 2%) 1 applic DAILY@1999 TOPIC 07/29/18 20:00 08/15/18 19:59 07/29/18 21:39 Dextrose (Dextrose 50%) 25 ml Q30M PRN IV Hypoglycemia 07/28/18 21:05 08/17/18 21:04 Dextrose (Dextrose 50%) 50 ml Q30M PRN IV hypoglycemia 07/28/18 21:05 08/17/18 21:04 Diphenhydramine HCl (Benadryl) 12.5 mg Q6H PRN IVP Itching/Pruritis 07/28/18 21:05 08/27/18 21:04 Heparin Sodium (Porcine) (Heparin 5000 units/ml) 5,000 units Q12HR SUBQ 07/28/18 21:00 08/02/18 08:59 07/30/18 09:41 Insulin Aspart (NovoLOG) No Dose Q6HR SUBQ 07/29/18 00:00 08/17/18 12:59 Ipratropium [place] (Atrovent) 500 mcg Q4H PRN HHN Shortness of Breath 07/28/18 21:07 08/01/18 21:06 Ketorolac Tromethamine (Toradol 30mg) 30 mg Q6H PRN IV Moderate Pain (Pain Scale 4-6) 07/28/18 21:11 07/31/18 21:10 07/29/18 19:51 Levalbuterol HCl (Xopenex) 0.63 mg Q4H PRN HHN SOB/wheezing 07/28/18 21:07 08/01/18 21:06 Magnesium Hydroxide (Mom) 30 ml BIDPRN PRN NG Constipation 07/28/18 21:05 08/27/18 21:04 Meropenem 1 gm/ Sodium Chloride 100 ml @ 200 mls/hr Q8HR IVPB 07/28/18 22:00 08/02/18 05:59 07/30/18 15:19 Nicotine (Nicoderm) 1 patch Q24H TDERMAL 07/29/18 18:00 08/08/18 17:59 07/30/18 17:04 Ondansetron HCl (Zofran) 4 mg Q6H PRN IVP Nausea & Vomiting 07/28/18 21:05 08/27/18 21:04 Pantoprazole (Protonix) 40 mg EVERY 12 HOURS IVP 07/29/18 09:00 08/28/18 08:59 07/30/18 09:24 Propranolol HCl (Inderal) 40 mg BID GT 07/29/18 09:00 08/27/18 11:59 07/30/18 17:04 Tyler Madsen MD Jul 30, 2018 17:59
[2018-07-30] MEDS ORDERED: Vancomycin 1.5gm/D5W 275ml IVPB ONE (19:30)
--- NOTE | 2018-07-30 19:40 | NUR ---
HAND-OFF: Report given to Joan De La Fuente RN.
--- NOTE | 2018-07-30 19:52 | NUR ---
NURSE NOTES: RECEIVED PATIENT RESTING IN BED, CONFUSED. FALL AND ASPIRATION PRECAUTIONS IN PLACE: CALL LIGHT WITHIN REACH, BED IN LOW POSITION AND BED ALARM ON; HOB ELEVATED AT LEAST 30 DEGREES. WILL CONTINUE WITH PLAN OF CARE.
[2018-07-30 20:00] VITALS: BP 117/80
[2018-07-30] MEDS: Dyna-Hex 2% Top Sol 2oz TOPIC SCH (21:30)
--- NOTE | 2018-07-30 22:00 | General Progress Note ---
Assessment/Plan Assessment/Plan Anemia of chronic disease due to underlying chronic medical issues, multifactorial, pancreatitis --> Anemia workup has been reviewed --> No evidence of hemolysis is noted, peripheral smear has been reviewed. --> Hgb goal >7. Transfuse prn. --> Epogen or iron at this time is not particularly indicated --> Medications have been reviewed # Thrombocytopenia is likely related to underlying reactive processs from pancreatitis, acute, as well as alcoholic intoxication and myelosuppression --> also patient has a history of hepatitis C from prior admission --> smear has been reviewed --> heparin sq is okay if needed for dvt ppx # Erythrocytosis is likely related to dehydration --> hgb goal >7, no evidence of bleeding currently --> given ivf already # Leukocytosis no e/o annie infection --> could be due to reactive process v cholecystitis --> wbc trend: 22-->18-->16-->14-->18-->19 --> peripheral smear has been reviewed --> ercp repeat in 6-8 weeks, stent was placed # Pancreatitis with alcohol abuse --> recommend etoh cessation --> amylase and lipase prn --> Status post ERCP with sphincterotomy and stent placement # Transaminitis --> likely related to etoh abuse --> in past seen by gi # Alcohol abuse -- recommend cessation # PEG inserted left lower quadrant The timing of this note does not necessarily reflect the time of the patient was seen. Greatly appreciate consultation! Subjective ROS Limited/Unobtainable: Yes Allergies: Coded Allergies: No Known Allergies (Unverified , 06/01/16) Subjective 07/05: bp was high today and dc was cancelled until tomorow, on librium 07/06: wbc was high though other counts are better, no f/c 07/10: seen by bedside, heart rate increased, appears agitated, wbc 13.9 07/11: to get ercp tomorrow, surgery and gi following 07/12 ercp, sphincterotomy, stent placement surgery done today, currently having tremors and tachy. wbc 15.9, hgb 14, plt 429 07/13: Pt is intubated, seen by bedside,wbc 22, on abx, no acute distress 07/14: awake and comfortable, still intubated on vent, labs noted hb trending down, wbc 18, hgb 8. 07/16: seen by bedside, awake, comfortable, wbc 14, hgb 9, plt 613 07/17: awake, comfortable, status post ERCP with sphincterotomy wbc 21, hgb 10, plt 689. 07/18; seen by bedside, awake comfortable, on venturi mask, wbc 23, plt 754. 07/19: seen by bedside, awake and comfortable, no events, wbc 21 07/20: now out of the icu, doing better, wbc improved, remains on abx as per ID 07/22: Pt is awake, comfortable, wbc 16, lt 632, on abx 07/23 Pt is awake, comfortable, wbc 15, plt 574, on abx, CXR revelals, Increasing opacities of the right lung and Slightly increasing right pleural effusion 07/24: ng has been removed, seen by other consultants, hgb has improved, no bleeding 07/25: seen by bedside, awake, comfortable, on nasal canula, failed video swallow test and has some PO meds, wbc trending down. 07/26: awake, comfortable, G-tube placement consent signed 07/27: a janell overnignt, in ICU , awake, alert, responsive, PEG inserted today, wbc 19. 07/30: resting in bed awake,alert disoriented on and off,Thoracentesis done, wbc trending up again, Chest x-ray reveals, Resolved right pleural effusion, post thoracentesis. No radiographically evident complication Persistent right mid and lower lung infiltrates. Objective Last 24 Hour Vital Signs Date Time Temp Pulse Resp B/P (MAP) Pulse Ox O2 Delivery O2 Flow Rate FiO2 07/30/18 20:09 94 Room Air 21 07/30/18 20:09 89 18 Room Air 21 07/30/18 20:09 Room Air 21 07/30/18 17:04 80 116/78 07/30/18 16:00 86 07/30/18 16:00 97.9 82 22 116/79 (91) 99 07/30/18 12:06 97.9 80 21 116/78 (91) 99 07/30/18 12:00 81 07/30/18 09:29 91 115/79 07/30/18 09:00 Room Air 2.0 07/30/18 08:00 98.7 91 23 115/79 (91) 95 07/30/18 08:00 94 07/30/18 07:39 96 Nasal Cannula 2.0 28 07/30/18 07:39 Nasal Cannula 2.0 28 07/30/18 07:39 86 16 Nasal Cannula 2.0 28 07/30/18 04:00 97.5 77 18 125/81 (96) 96 07/30/18 03:23 78 07/30/18 00:00 96.5 81 18 119/79 (92) 95 07/29/18 23:20 82 Intake and Output 07/29/18 07/30/18 19:00 07:00 Intake Total 40 ml 240 ml Output Total 460 ml 400 ml Balance -420 ml -160 ml IV Total 200 ml Tube Feeding 40 ml 40 ml Output Urine Total 450 ml 400 ml Drainage Total 10 ml 0 ml # Bowel Movements 1 Laboratory Tests 07/30/18 08:25: White Blood Count 19.7H, Red Blood Count 4.10L, Hemoglobin 13.9L, Hematocrit 40.8L, Mean Corpuscular Volume 99, Mean Corpuscular Hemoglobin 33.8H, Mean Corpuscular Hemoglobin Concent 34.0, Red Cell Distribution Width 13.2, Platelet Count 598H, Mean Platelet Volume 6.6, Neutrophils (%) (Auto) , Lymphocytes (%) ( Auto) , Monocytes (%) (Auto) , Eosinophils (%) (Auto) , Basophils (%) (Auto) , Differential Total Cells Counted 100, Neutrophils % (Manual) 88H, Lymphocytes % (Manual) 6L, Monocytes % (Manual) 4, Eosinophils % (Manual) 2, Basophils % ( Manual) 0, Band Neutrophils 0, Platelet Estimate IncreasedH, Platelet Morphology Normal, Sodium Level 141, Potassium Level 4.6, Chloride Level 107, Carbon Dioxide Level 28, Anion Gap 6, Blood Urea Nitrogen 30H, Creatinine 0.8, Estimat Glomerular Filtration Rate > 60, Glucose Level 93, Calcium Level 9.6 Height (Feet): 5 Height (Inches): 8.00 Weight (Pounds): 159 Objective Physical Exam General Appearance: A+O x3, NAD, ++ asterixis HEENT: normocephalic, atraumatic Neck: non-tender, normal alignment Respiratory/Chest: chest wall non-tender, lungs clear Cardiovascular/Chest: normal peripheral pulses, normal rate Abdomen: normal bowel sounds, non tender.++PEG Extremities: normal range of motion Guy Salazar MD Jul 30, 2018 22:00
--- NOTE | 2018-07-30 23:19 | Cardiology Progress Note ---
Assessment/Plan Assessment/Plan 1, Paroxysmal atrial fibrillation, continue propranolol, not a suitable candidate for anticoag therapy. 2. Moderate pulmonary HTN. Subjective Subjective Sinus rhythm at rate of 89. Objective Last 24 Hour Vital Signs Date Time Temp Pulse Resp B/P (MAP) Pulse Ox O2 Delivery O2 Flow Rate FiO2 07/30/18 20:09 94 Room Air 21 07/30/18 20:09 89 18 Room Air 21 07/30/18 20:09 Room Air 21 07/30/18 17:04 80 116/78 07/30/18 16:00 86 07/30/18 16:00 97.9 82 22 116/79 (91) 99 07/30/18 12:06 97.9 80 21 116/78 (91) 99 07/30/18 12:00 81 07/30/18 09:29 91 115/79 07/30/18 09:00 Room Air 2.0 07/30/18 08:00 98.7 91 23 115/79 (91) 95 07/30/18 08:00 94 07/30/18 07:39 96 Nasal Cannula 2.0 28 07/30/18 07:39 Nasal Cannula 2.0 28 07/30/18 07:39 86 16 Nasal Cannula 2.0 28 07/30/18 04:00 97.5 77 18 125/81 (96) 96 07/30/18 03:23 78 07/30/18 00:00 96.5 81 18 119/79 (92) 95 07/29/18 23:20 82 Intake and Output 07/29/18 07/30/18 19:00 07:00 Intake Total 40 ml 240 ml Output Total 460 ml 400 ml Balance -420 ml -160 ml IV Total 200 ml Tube Feeding 40 ml 40 ml Output Urine Total 450 ml 400 ml Drainage Total 10 ml 0 ml # Bowel Movements 1 2D Echo: LVEF 65%, Mild LVH, RVSP 50 mmHg, Mild MR/[place], Normal LVD Laboratory Tests Test 07/30/18 08:25 White Blood Count 19.7 K/UL (4.8-10.8) H Red Blood Count 4.10 M/UL (4.70-6.10) L Hemoglobin 13.9 G/DL (14.2-18.0) L Hematocrit 40.8 % (42.0-52.0) L Mean Corpuscular Volume 99 FL (80-99) Mean Corpuscular Hemoglobin 33.8 PG (27.0-31.0) H Mean Corpuscular Hemoglobin Concent 34.0 G/DL (32.0-36.0) Red Cell Distribution Width 13.2 % (11.6-14.8) Platelet Count 598 K/UL (150-450) H Mean Platelet Volume 6.6 FL (6.5-10.1) Neutrophils (%) (Auto) % (45.0-75.0) Lymphocytes (%) (Auto) % (20.0-45.0) Monocytes (%) (Auto) % (1.0-10.0) Eosinophils (%) (Auto) % (0.0-3.0) Basophils (%) (Auto) % (0.0-2.0) Differential Total Cells Counted 100 Neutrophils % (Manual) 88 % (45-75) H Lymphocytes % (Manual) 6 % (20-45) L Monocytes % (Manual) 4 % (1-10) Eosinophils % (Manual) 2 % (0-3) Basophils % (Manual) 0 % (0-2) Band Neutrophils 0 % (0-8) Platelet Estimate Increased H Platelet Morphology Normal Sodium Level 141 MMOL/L (136-145) Potassium Level 4.6 MMOL/L (3.5-5.1) Chloride Level 107 MMOL/L (98-107) Carbon Dioxide Level 28 MMOL/L (21-32) Anion Gap 6 mmol/L (5-15) Blood Urea Nitrogen 30 mg/dL (7-18) H Creatinine 0.8 MG/DL (0.55-1.30) Estimat Glomerular Filtration Rate > 60 mL/min (>60) Glucose Level 93 MG/DL (74-106) Calcium Level 9.6 MG/DL (8.5-10.1) Objective HEENT: normocephalic, atraumatic, anicteric, PERRL, dry mucous membrane Neck: no JVD, no carotid bruit. Respiratory/Chest: chest wall non-tender, lungs clear, normal breath sounds, no respiratory distress, no accessory muscle use Cardiovascular/Chest: Normal S1S2, no murmurs, gallops or rubs, rate,regular rhythm Abdomen: normal bowel sounds, soft, no organomegaly, no mass, other - mild epigastric ttp Extremities: normal range of motion, non-tender, normal inspection, no calf tenderness, normal capillary refill, non-pitting Skin Exam: normal pigmentation, warm/dry Neurologic: no motor/sensory deficits, alert, oriented x 3, responsive, normal mood/affect Luis Patel MD Jul 30, 2018 23:19
[2018-07-31] VITALS: BP 119/76
[2018-07-31 00:40] LABS: APPEARANCE,URINE CLEAR; BILIRUBIN, URINE NEGATIVE (NEGATIVE); GLUCOSE, URINE (UA) NEGATIVE (NEGATIVE); KETONES,URINE 1+ (NEGATIVE); LEUKOCYTE ESTERASE ,URINE 1+ (NEGATIVE); NITRITE,URINE NEGATIVE (NEGATIVE); PH,URINE 5 (4.5-8.0); PROTEIN,URINE 2+ (NEGATIVE); UROBILINOGEN,URINE 1 MG/DL (0.0-1.0)
[2018-07-31 00:43] LABS: COLOR,URINE YELLOW
[2018-07-31 04:00] VITALS: BP 128/86
[2018-07-31] MEDS: NovoLOG Insulin Flexpen SUBQ SCH ×5 (06:00→23:58)
[2018-07-31 07:13] LABS: ALANINE AMINOTRANSFERASE 197 U/L (12-78); ALBUMIN 2.3 G/DL (3.4-5.0); ALBUMIN/GLOBULIN RATIO 0.4 (1.0-2.7); ALKALINE PHOSPHATASE 130 U/L (46-116); ANION GAP 10 mmol/L (5-15); ASPARTATE AMINO TRANSFERASE 133 U/L (15-37); BILIRUBIN,TOTAL 0.6 MG/DL (0.2-1.0); BLOOD UREA NITROGEN 23 mg/dL (7-18); CALCIUM 9.3 MG/DL (8.5-10.1); CARBON DIOXIDE 27 MMOL/L (21-32); CHLORIDE 104 MMOL/L (98-107); CREATININE 0.9 MG/DL (0.55-1.30); POTASSIUM 3.8 MMOL/L (3.5-5.1); SODIUM 141 MMOL/L (136-145)
[2018-07-31 07:42] LABS: BASOPHILS % (AUTO) 0.6 % (0.0-2.0); EOSINOPHILS % (AUTO) 5.8 % (0.0-3.0); HEMATOCRIT 40.6 % (42.0-52.0); HEMOGLOBIN 13.8 G/DL (14.2-18.0); LYMPHOCYTES % (AUTO) 10.8 % (20.0-45.0); MEAN CORPUSCULAR VOLUME 100 FL (80-99); MONOCYTES % (AUTO) 4.9 % (1.0-10.0); NEUTROPHILS % (AUTO) 77.9 % (45.0-75.0); PLATELET COUNT 561 K/UL (150-450); RED BLOOD COUNT 4.08 M/UL (4.70-6.10); RED CELL DISTRIBUTION WIDTH 13.3 % (11.6-14.8)
--- NOTE | 2018-07-31 07:46 | NUR ---
HAND-OFF: Report given to Chris HE RN. PATIENT RESTING IN BED, NO SIGNS OF DISTRESS NOTED.
--- NOTE | 2018-07-31 07:51 | NUR ---
NURSE NOTES: Received report from JAVIER Franco. Patient is in stable condition. No acute distress/SOB noted. Will continue plan of care.
[2018-07-31 08:00] VITALS: BP 124/84
--- NOTE | 2018-07-31 08:15 | NUR ---
NURSE NOTES: Called Bonnie Chow and got consent for IV contrast.
--- NOTE | 2018-07-31 08:29 | Pulmonology Progress Note ---
Assessment/Plan Problems: (1) Cholecystitis, acute (2) Alcoholic pancreatitis (3) Pancreatitis, acute (4) Alcohol abuse (5) Abnormal LFTs (6) Gangrenous cholecystitis (7) Respiratory disorder with ventilator dependence Assessment & Plan: Extubated and TTF (8) Blood loss anemia (9) Pneumonia (10) Hepatitis C (11) Fatty liver Assessment/Plan F/U pleural fluid studies F/U CT CHEST and A/P Optimize pulmonary hygiene/mobilize as tolerated Titrate down FiO2 to keep SaO2 > 90% PRN ATROVENT HHN's Abx (Jair & Vanco) per ID, F/U Cx's and monitor WCt GTF's GI & surgery recs Mont[place] volumes and renal function DVT Px: Hep SQ FC Subjective Allergies: Coded Allergies: No Known Allergies (Unverified , 06/01/16) Subjective Tm 100.4 VSS on RA S/P 500 cc thora, CXR with complete re-expansion WCt better Carlos TFs, denies cough/congestion/SOB/wheezing, no FC Objective Last 24 Hour Vital Signs Date Time Temp Pulse Resp B/P (MAP) Pulse Ox O2 Delivery O2 Flow Rate FiO2 07/31/18 08:00 98.2 93 20 124/84 (97) 95 07/31/18 04:00 90 07/31/18 04:00 98.5 90 18 128/86 (100) 93 07/31/18 00:00 89 07/31/18 00:00 99.4 94 19 119/76 (90) 92 07/30/18 21:00 Room Air 07/30/18 20:09 94 Room Air 21 07/30/18 20:09 89 18 Room Air 21 07/30/18 20:09 Room Air 21 07/30/18 20:00 88 07/30/18 20:00 100.4 98 18 117/80 (92) 92 07/30/18 17:04 80 116/78 07/30/18 16:00 86 07/30/18 16:00 97.9 82 22 116/79 (91) 99 07/30/18 12:06 97.9 80 21 116/78 (91) 99 07/30/18 12:00 81 07/30/18 09:29 91 115/79 07/30/18 09:00 Room Air 2.0 Intake and Output 07/30/18 07/31/18 19:00 07:00 Intake Total 660 ml 765.0 ml Output Total 255 ml 600 ml Balance 405 ml 165.0 ml Free Water 90 ml IV Total 475.0 ml Tube Feeding 540 ml 200 ml Other 120 ml Output Urine Total 250 ml 600 ml Drainage Total 5 ml # Voids 1 # Bowel Movements 2 General Appearance: WD/WN, no acute distress HEENT: normocephalic, atraumatic, anicteric, mucous membranes moist Respiratory/Chest: chest wall non-tender, lungs clear, normal breath sounds, no respiratory distress, no accessory muscle use Cardiovascular: normal peripheral pulses, normal rate, regular rhythm Abdomen: normal bowel sounds, soft, non tender, no organomegaly, non distended , other - dressed Extremities: no cyanosis, no clubbing, no edema Laboratory Tests 07/30/18 22:00: Urine Color Yellow, Urine Appearance Clear, Urine pH 5, Urine Specific [place] 1.025, Urine Protein 2+H, Urine Glucose (UA) Negative, Urine Ketones 1+H, Urine Blood 3+H, Urine Nitrite Negative, Urine Bilirubin Negative, Urine Urobilinogen 1H, Urine Leukocyte Esterase 1+H, Urine RBC 2-4H, Urine WBC 2-4, Urine Squamous Epithelial Cells Few, Urine Bacteria Few 07/31/18 05:35: White Blood Count 13.0H, Red Blood Count 4.08L, Hemoglobin 13.8L, Hematocrit 40.6L, Mean Corpuscular Volume 100H, Mean Corpuscular Hemoglobin 33.9H, Mean Corpuscular Hemoglobin Concent 34.0, Red Cell Distribution Width 13.3, Platelet Count 561H, Mean Platelet Volume 6.9, Neutrophils (%) (Auto) 77.9H, Lymphocytes (%) (Auto) 10.8L, Monocytes (%) (Auto) 4.9, Eosinophils (%) (Auto) 5.8H, Basophils (%) (Auto) 0.6, Erythrocyte Sedimentation Rate [Pending], Sodium Level 141, Potassium Level 3.8, Chloride Level 104, Carbon Dioxide Level 27, Anion Gap 10, Blood Urea Nitrogen 23H, Creatinine 0.9, Estimat Glomerular Filtration Rate > 60, Glucose Level 101, Calcium Level 9.3, Total Bilirubin 0.6 , Aspartate Amino Transf (AST/SGOT) 133H, Alanine Aminotransferase (ALT/SGPT) 197H, Alkaline Phosphatase 130H, C-Reactive Protein, Quantitative 6.3H, Total Protein 8.8H, Albumin 2.3L, Globulin 6.5, Albumin/Globulin Ratio 0.4L, Amylase Level 148H, Lipase 859H Current Medications Medications (Trade) Dose Ordered Sig/[place] Route PRN Reason Start Time Stop Time Status Last Admin Dose Admin Acetaminophen (Tylenol) 650 mg Q4H PRN RECTAL Prn for Temp >100.5 07/28/18 21:05 08/14/18 21:04 Al Hydroxide/Mg Hydroxide (Mylanta) 15 ml Q6H PRN NG DYSPEPSIA 07/28/18 21:05 08/27/18 21:04 Chlorhexidine Gluconate (Estrella-Hex 2%) 1 applic DAILY@2000 TOPIC 07/29/18 20:00 08/15/18 19:59 07/30/18 21:30 Dextrose (Dextrose 50%) 25 ml Q30M PRN IV Hypoglycemia 07/28/18 21:05 08/17/18 21:04 Dextrose (Dextrose 50%) 50 ml Q30M PRN IV hypoglycemia 07/28/18 21:05 08/17/18 21:04 Diphenhydramine HCl (Benadryl) 12.5 mg Q6H PRN IVP Itching/Pruritis 07/28/18 21:05 08/27/18 21:04 Heparin Sodium (Porcine) (Heparin 5000 units/ml) 5,000 units Q12HR SUBQ 07/28/18 21:00 08/02/18 08:59 07/30/18 21:31 Insulin Aspart (NovoLOG) No Dose Q6HR SUBQ 07/29/18 00:00 08/17/18 12:59 Ipratropium [place] (Atrovent) 500 mcg Q4H PRN HHN Shortness of Breath 07/28/18 21:07 08/01/18 21:06 Ketorolac Tromethamine (Toradol 30mg) 30 mg Q6H PRN IV Moderate Pain (Pain Scale 4-6) 07/28/18 21:11 07/31/18 21:10 07/29/18 19:51 Levalbuterol HCl (Xopenex) 0.63 mg Q4H PRN HHN SOB/wheezing 07/28/18 21:07 08/01/18 21:06 Magnesium Hydroxide (Mom) 30 ml BIDPRN PRN NG Constipation 07/28/18 21:05 08/27/18 21:04 Meropenem 1 gm/ Sodium Chloride 100 ml @ 200 mls/hr Q8HR IVPB 07/28/18 22:00 08/02/18 05:59 07/31/18 06:01 Nicotine (Nicoderm) 1 patch Q24H TDERMAL 07/29/18 18:00 08/08/18 17:59 07/30/18 17:04 Ondansetron HCl (Zofran) 4 mg Q6H PRN IVP Nausea & Vomiting 07/28/18 21:05 08/27/18 21:04 Pantoprazole (Protonix) 40 mg EVERY 12 HOURS IVP 07/29/18 09:00 08/28/18 08:59 07/30/18 21:30 Propranolol HCl (Inderal) 40 mg BID GT 07/29/18 09:00 08/27/18 11:59 07/30/18 17:04 Vancomycin HCl (Vanco rx to dose) 1 ea DAILY PRN MISC Per rx protocol 07/30/18 18:15 08/29/18 18:14 Vancomycin HCl/ Dextrose 275 ml @ 137.5 mls/ hr Q12HR IVPB 07/31/18 09:00 08/05/18 08:59 Trenton Ladd MD Jul 31, 2018 08:29
[2018-07-31] MEDS ORDERED: Phytonadione 10 mg/mL 1ml amp SUBQ SCH ×4 (09:00→20:00)
[2018-07-31] MEDS: Pantoprazole Inj IVP SCH ×2 (09:14→20:51)
[2018-07-31] MEDS: Vancomycin 1.5gm/D5W 275ml IVPB SCH ×2 (09:14→20:56)
[2018-07-31] MEDS: Propranolol 40mg tab GT SCH ×2 (09:14→17:34)
[2018-07-31] MEDS: Heparin 5000 units/ml inj SUBQ SCH ×2 (09:15→20:54)
[2018-07-31 12:00] VITALS: BP 112/78
--- NOTE | 2018-07-31 13:02 | NUR ---
RESIDENT CARE DIRECTORVERSE WRITER SI: ALCOHOLIC PANCREATITIS,S/P THORACENTESIS T. 98.6 HR 74 RR 20 B/P 112/78 WBC 13.0 ESR 26 AST 133 ALT 197 ALK PHOS 130 AMYLASE 148 LIPASE 839 THORACENTESIS= 500ML REMOVED CXR= RESOLVED RIGHT PLEURAL EFFUSION IS: VANCO IV MEROPENEM IV PROTONIX HEPARIN SUBC TELE STATUS
--- NOTE | 2018-07-31 13:23 | General Progress Note ---
Assessment/Plan Assessment/Plan #Sepsis #Acute purulent gangrenous cholecystitis. #klebsiella cholecystitis #acute Hypoxic respiratory failure #Acute Metabolic Encephalopathy - due to alcohol withdrawal and sepsis - meropenem, Diflucan - bcx x 2 ngtd - s/p ercp 07/12 - gen surg following s/p lap jocelyn converted to open jocelyn 07/12 - extubated on 07/16/18 - off o2 ncl - pulm following appreciated - pain control - appreciate surg recs - tpn -NG tube removed -s/p PEG -CT A/P pending today #Acute Blood Loss Anemia - due to recent surgery - no overt bleeding noted currently - hgb 6.8 07/15, transfused 2U, 9.7 (07/16) - stable #Pleural Effusions - b/l - per mrcp - stable - pulm consult appreciated #Alcohol Pancreatitis #Intractable abdominal pain #intractable nausea/vomiting #Transaminitis #Alcohol Hepatitis #Alcohol withdrawals #Fatty Liver Disease #Hepatitis C - LFTs 446/532 - Lipase 687 - due to alcohol abuse - INR 1.0 - discriminant function, 4.5 , no need for steroids - US abd completed and reviewed, showing fatty liver disease. GS present, no obstruction noted - ppi - PRN antiemetics, zofran prn - Per GI, will need ERCP in 6-8 weeks for stent removal #Failure to thrive - due to alcohol withdrawals and the above - alcoholic pancreatitis - fluids #Alcohol Abuse - educated on cessation for 15 mins - patient states he understands and will try to quit - RN notified to monitor carefully with withdrawals - prn ativan - ciwa #Uncontrolled HTN and tachycardia overnight -all oral BP meds held for now -continue metoprolol IV q6h -transferred to ICU, on amiodarone drip #Tobacco abuse - smokes 1ppd - educated on smoking cessation for over 15 mins, states he understands the risks of smoking and will try to quit #Dysphagia -seen by FISHER DIVING -strict NPO recommended at this time -Continue tube feeds via PEG Subjective Cardiovascular: Denies: chest pain Respiratory: Denies: cough Allergies: Coded Allergies: No Known Allergies (Unverified , 06/01/16) Subjective Medicine follow up for multiple medical problems including acute gangrenous cholecystitis, acute hypoxic respiratory failure, acute encephalopathy No new issues overnight. Getting CT A/P today Objective Last 24 Hour Vital Signs Date Time Temp Pulse Resp B/P (MAP) Pulse Ox O2 Delivery O2 Flow Rate FiO2 07/31/18 12:00 98.6 74 20 112/78 (89) 96 07/31/18 09:14 93 124/84 07/31/18 09:00 Room Air 07/31/18 08:00 98.2 93 20 124/84 (97) 95 07/31/18 08:00 90 07/31/18 06:40 85 17 Room Air 21 07/31/18 06:40 98 Room Air 21 07/31/18 06:40 Room Air 21 07/31/18 04:00 90 07/31/18 04:00 98.5 90 18 128/86 (100) 93 07/31/18 00:00 89 07/31/18 00:00 99.4 94 19 119/76 (90) 92 07/30/18 21:00 Room Air 07/30/18 20:09 94 Room Air 21 07/30/18 20:09 89 18 Room Air 21 07/30/18 20:09 Room Air 21 07/30/18 20:00 88 07/30/18 20:00 100.4 98 18 117/80 (92) 92 07/30/18 17:04 80 116/78 07/30/18 16:00 86 07/30/18 16:00 97.9 82 22 116/79 (91) 99 Intake and Output 07/30/18 07/31/18 18:59 06:59 Intake Total 700 ml 665.0 ml Output Total 255 ml 600 ml Balance 445 ml 65.0 ml Free Water 90 ml IV Total 375.0 ml Tube Feeding 580 ml 200 ml Other 120 ml Output Urine Total 250 ml 600 ml Drainage Total 5 ml # Voids 1 # Bowel Movements 2 Laboratory Tests 07/30/18 22:00: Urine Color Yellow, Urine Appearance Clear, Urine pH 5, Urine Specific [place] 1.025, Urine Protein 2+H, Urine Glucose (UA) Negative, Urine Ketones 1+H, Urine Blood 3+H, Urine Nitrite Negative, Urine Bilirubin Negative, Urine Urobilinogen 1H, Urine Leukocyte Esterase 1+H, Urine RBC 2-4H, Urine WBC 2-4, Urine Squamous Epithelial Cells Few, Urine Bacteria Few 07/31/18 05:35: White Blood Count 13.0H, Red Blood Count 4.08L, Hemoglobin 13.8L, Hematocrit 40.6L, Mean Corpuscular Volume 100H, Mean Corpuscular Hemoglobin 33.9H, Mean Corpuscular Hemoglobin Concent 34.0, Red Cell Distribution Width 13.3, Platelet Count 561H, Mean Platelet Volume 6.9, Neutrophils (%) (Auto) 77.9H, Lymphocytes (%) (Auto) 10.8L, Monocytes (%) (Auto) 4.9, Eosinophils (%) (Auto) 5.8H, Basophils (%) (Auto) 0.6, Erythrocyte Sedimentation Rate 26H, Sodium Level 141, Potassium Level 3.8, Chloride Level 104, Carbon Dioxide Level 27, Anion Gap 10, Blood Urea Nitrogen 23H, Creatinine 0.9, Estimat Glomerular Filtration Rate > 60 , Glucose Level 101, Calcium Level 9.3, Total Bilirubin 0.6, Aspartate Amino Transf (AST/SGOT) 133H, Alanine Aminotransferase (ALT/SGPT) 197H, Alkaline Phosphatase 130H, C-Reactive Protein, Quantitative 6.3H, Total Protein 8.8H, Albumin 2.3L, Globulin 6.5, Albumin/Globulin Ratio 0.4L, Amylase Level 148H, Lipase 859H Height (Feet): 5 Height (Inches): 8.00 Weight (Pounds): 159 General Appearance: no apparent distress, alert EENT: normal ENT inspection Neck: normal alignment Cardiovascular: normal rate Respiratory/Chest: lungs clear, normal breath sounds Tomás Cruz MD Jul 31, 2018 13:23
--- NOTE | 2018-07-31 13:24 | GI Progress Note ---
Assessment/Plan Problems: (1) Abnormal LFTs ICD Codes: R79.89 - Other specified abnormal findings of blood chemistry SNOMED: 225496194 (2) Cholecystitis, acute ICD Codes: K81.0 - Acute cholecystitis SNOMED: 41870099 (3) Hepatitis C ICD Codes: B19.20 - Unspecified viral hepatitis C without hepatic coma SNOMED: 99498149 (4) Fatty liver ICD Codes: K76.0 - Fatty (change of) liver, not elsewhere classified SNOMED: 930230396 (5) Alcoholic pancreatitis ICD Codes: K85.20 - Alcohol induced acute pancreatitis without necrosis or infection SNOMED: 531544493 (6) Pancreatitis, acute ICD Codes: K85.90 - Acute pancreatitis without necrosis or infection, unspecified SNOMED: 421777932 Status: stable Status Narrative Discussed with Dr. Yip. Assessment/Plan SUMMARY OF FINDINGS: 1. 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 2. Status post ERCP with sphincterotomy, balloon assistance sludge and some pus extraction from the common bile duct and then stent placement. s/p open jocelyn, now in ICU with pancreatitis hepatitis C positive Pancreatitis s/p PEG RECOMMENDATIONS: Continue G-tube feedings per RD to goal Trend lipase fu labs The patient will need repeat ERCP in 6 to 8 weeks for stent removal. outpatient Hep C tx dc planning The patient was seen and examined at bedside and all new and available data was reviewed in the patients chart. I agree with the above findings, impression and plan. (Patient seen earlier today. Signature stamp does not reflect patient encounter time.). - Toñito Yip MD Subjective Subjective limited, more awake and alert Objective Last 24 Hour Vital Signs Date Time Temp Pulse Resp B/P (MAP) Pulse Ox O2 Delivery O2 Flow Rate FiO2 07/31/18 12:00 98.6 74 20 112/78 (89) 96 07/31/18 09:14 93 124/84 07/31/18 09:00 Room Air 07/31/18 08:00 98.2 93 20 124/84 (97) 95 07/31/18 08:00 90 07/31/18 06:40 85 17 Room Air 21 07/31/18 06:40 98 Room Air 21 07/31/18 06:40 Room Air 21 07/31/18 04:00 90 07/31/18 04:00 98.5 90 18 128/86 (100) 93 07/31/18 00:00 89 07/31/18 00:00 99.4 94 19 119/76 (90) 92 07/30/18 21:00 Room Air 07/30/18 20:09 94 Room Air 21 07/30/18 20:09 89 18 Room Air 21 07/30/18 20:09 Room Air 21 07/30/18 20:00 88 07/30/18 20:00 100.4 98 18 117/80 (92) 92 07/30/18 17:04 80 116/78 07/30/18 16:00 86 07/30/18 16:00 97.9 82 22 116/79 (91) 99 Intake and Output 07/30/18 07/31/18 18:59 06:59 Intake Total 700 ml 665.0 ml Output Total 255 ml 600 ml Balance 445 ml 65.0 ml Free Water 90 ml IV Total 375.0 ml Tube Feeding 580 ml 200 ml Other 120 ml Output Urine Total 250 ml 600 ml Drainage Total 5 ml # Voids 1 # Bowel Movements 2 Laboratory Tests Test 07/30/18 22:00 07/31/18 05:35 Urine Color Yellow Urine Appearance Clear Urine pH 5 (4.5-8.0) Urine Specific [place] 1.025 (1.005-1.035) Urine Protein 2+ (NEGATIVE) H Urine Glucose (UA) Negative (NEGATIVE) Urine Ketones 1+ (NEGATIVE) H Urine Blood 3+ (NEGATIVE) H Urine Nitrite Negative (NEGATIVE) Urine Bilirubin Negative (NEGATIVE) Urine Urobilinogen 1 MG/DL (0.0-1.0) H Urine Leukocyte Esterase 1+ (NEGATIVE) H Urine RBC 2-4 /HPF (0 - 0) H Urine WBC 2-4 /HPF (0 - 0) Urine Squamous Epithelial Cells Few /LPF (NONE/OCC) Urine Bacteria Few /HPF (NONE) White Blood Count 13.0 K/UL (4.8-10.8) H Red Blood Count 4.08 M/UL (4.70-6.10) L Hemoglobin 13.8 G/DL (14.2-18.0) L Hematocrit 40.6 % (42.0-52.0) L Mean Corpuscular Volume 100 FL (80-99) H Mean Corpuscular Hemoglobin 33.9 PG (27.0-31.0) H Mean Corpuscular Hemoglobin Concent 34.0 G/DL (32.0-36.0) Red Cell Distribution Width 13.3 % (11.6-14.8) Platelet Count 561 K/UL (150-450) H Mean Platelet Volume 6.9 FL (6.5-10.1) Neutrophils (%) (Auto) 77.9 % (45.0-75.0) H Lymphocytes (%) (Auto) 10.8 % (20.0-45.0) L Monocytes (%) (Auto) 4.9 % (1.0-10.0) Eosinophils (%) (Auto) 5.8 % (0.0-3.0) H Basophils (%) (Auto) 0.6 % (0.0-2.0) Erythrocyte Sedimentation Rate 26 MM/HR (0-20) H Sodium Level 141 MMOL/L (136-145) Potassium Level 3.8 MMOL/L (3.5-5.1) Chloride Level 104 MMOL/L (98-107) Carbon Dioxide Level 27 MMOL/L (21-32) Anion Gap 10 mmol/L (5-15) Blood Urea Nitrogen 23 mg/dL (7-18) H Creatinine 0.9 MG/DL (0.55-1.30) Estimat Glomerular Filtration Rate > 60 mL/min (>60) Glucose Level 101 MG/DL (74-106) Calcium Level 9.3 MG/DL (8.5-10.1) Total Bilirubin 0.6 MG/DL (0.2-1.0) Aspartate Amino Transf (AST/SGOT) 133 U/L (15-37) H Alanine Aminotransferase (ALT/SGPT) 197 U/L (12-78) H Alkaline Phosphatase 130 U/L (46-116) H C-Reactive Protein, Quantitative 6.3 mg/dL (0.00-0.90) H Total Protein 8.8 G/DL (6.4-8.2) H Albumin 2.3 G/DL (3.4-5.0) L Globulin 6.5 g/dL Albumin/Globulin Ratio 0.4 (1.0-2.7) L Amylase Level 148 U/L (25-115) H Lipase 859 U/L (73-393) H Height (Feet): 5 Height (Inches): 8.00 Weight (Pounds): 159 General Appearance: WD/WN, no apparent distress, alert Cardiovascular: normal rate Respiratory/Chest: normal breath sounds, no respiratory distress Abdominal Exam: normal bowel sounds, non tender, soft, GT site - c/d/i Extremities: normal range of motion, non-tender Sonja Neely NP Jul 31, 2018 13:24
--- NOTE | 2018-07-31 13:49 | NUR ---
Rehab/P.T Notes: Order to resume P.T service received after pt was transferred from ICU to telemetry unit. Pt seen for P.T re evaluation for completed and treatment initiated. Please refer to P.T re-evaluation for current functional status. Pt is awake , oriented to person and place but not to time. Pt is cognisant most of the time, able to converse and follows commands appropriately. Pt reports pain in abdominal region aggravated by movement initiation : 3/10 at rest, 8/10 with movement initiation. Pt also reports of being generally weak and fatigued. Pt currently required MAX A X 1 for bed mobilities and transfer mobilities. Pt was able to sit unsupported at the EOB and was able able to partially stand using the FWW with MOD A X 1. Pt is too weak to ambulate at this time Skilled P.T service is warranted to improve strength, endurance and balance to increase activity tolerance , functional mobility mobility independence and safety during stay. Recommend SNF for intensive Rehab upon DC.
--- NOTE | 2018-07-31 15:16 | Diagnostic Imaging Report ---
CLINICAL INDICATION:Chest pain, abdominal pain, abnormal liver function tests, pancreatitis TECHNIQUE: Patient ingested given enteric contrast. IV administration nonionic contrast. Multiphasic spiral acquisitions obtained through the chest, abdomen, and pelvis. Multiplanar reconstructions were generated. Total dose length product 1464.7 mGycm. CTDIvol(s) 14.25,12.66 mGy. Radiation dose was minimized using automated exposure control COMPARISON: No comparison chest CT. Abdomen pelvis CT compared to noncontrast abdomen pelvis CT dated 07/10/2018 FINDINGS Chest: There is a small right pleural effusion. There is atelectasis of a significant portion of the right lower lobe. Reticular opacity, possibly with honeycombing, is seen occupying much of the residual aerated right lower lobe. Similar opacities are also seen in the right middle lobe and inferior right upper lobe. Small patchy areas of reticular and groundglass opacity are seen in the left upper lobe. There is posterior dependent atelectatic change of the left lower lobe. Some visceral pleural calcification is seen on There is a left arm PICC, tip of which is in the high right atrium. The heart size is normal. No pericardial effusion. No mediastinal or hilar mass or adenopathy. No axillary or chest wall mass or adenopathy. The thyroid is unremarkable. Compared to the visualized portions of the lung bases on prior 07/10/2018 exam, aeration is improved. Abdomen pelvis: Interim cholecystectomy. There is a complex shaped mixed attenuation collection occupying and extending caudad to the gallbladder fossa. This measures 13 x 5.2 cm orthogonal axial dimensions, by 13.7 cm craniocaudad. This demonstrates slight rim enhancement. A surgical drain is seen in the periphery of this lesion. There is questionably a second separate lesion versus contiguous lobulation measuring 4.5 cm in diameter extending caudad from this. A few gas bubbles are seen within the collection, not completely nondependent. There is overlying skin kenneth. There is suggestion of slight swelling of the adjacent abdominal wall musculature. There is a small open incision in the anteromedial right upper quadrant, immediately adjacent to some more medial skin kenneth. There is an endobiliary stent now present in good position. There is a gastrostomy tube in good position. Surgical clips are seen in the region of the gastroesophageal junction. Ingested contrast is seen as far distally as the mid descending colon. No evidence of diverticulosis or diverticulitis. The appendix is not definitely demonstrated. No small bowel distention or small bowel wall thickening. The liver, pancreas, spleen, adrenals are unremarkable. There are subcentimeter low-attenuation renal lesions which much more apparent on the current than on the previous noncontrast exam. No retroperitoneal or mesenteric mass or adenopathy. No pelvic mass or adenopathy. There is a Serrano catheter within the bladder. Small amount of air within the bladder is likely related to the Serrano catheter. The bones are unremarkable except for mild degenerative spondylosis changes IMPRESSION: Status post cholecystectomy. Complex 13 x 5 x 13.7 cm mixed attenuation collection in and extending from the gallbladder fossa. Given the presence of high attenuation elements, this most likely represents a postoperative hematoma. Infected collections not completely excludable, particularly in view of the presence of some rim enhancement Endobiliary stent in good position. No biliary ductal dilatation Atelectasis of a significant portion of the right lower lobe. However, volume loss is significantly improved from 07/10/2018 Fairly extensive infiltrates in the right lower lobe, with less extensive infiltrates in the right middle lobe, right upper lobe, and left upper lobe. There may be a component of chronic fibrosis within the right lower lobe opacities as well PICC in good position Trace right pleural effusion Gastrostomy in good position Serrano catheter within the bladder. Small amount of gas within the bladder lumen likely related to the Serrano catheter Subcentimeter low-attenuation renal lesions, too small to characterize, most likely benign simple cortical cysts. No further follow-up necessary The CT scanner at [facility] is accredited by the [employer] and the scans are performed using protocols designed to limit radiation exposure to as low as reasonably achievable to attain images of sufficient resolution adequate for diagnostic evaluation.
[2018-07-31 16:00] VITALS: BP 113/75
--- NOTE | 2018-07-31 18:08 | General Progress Note ---
Assessment/Plan Assessment/Plan Anemia of chronic disease due to underlying chronic medical issues, multifactorial, pancreatitis --> Anemia workup has been reviewed --> No evidence of hemolysis is noted, peripheral smear has been reviewed. --> Hgb goal >7. Transfuse prn. --> Epogen or iron at this time is not particularly indicated --> Medications have been reviewed # Thrombocytopenia is likely related to underlying reactive processs from pancreatitis, acute, as well as alcoholic intoxication and myelosuppression --> also patient has a history of hepatitis C from prior admission --> smear has been reviewed --> heparin sq is okay if needed for dvt ppx # Erythrocytosis is likely related to dehydration --> hgb goal >7, no evidence of bleeding currently --> given ivf already # Leukocytosis no e/o annie infection --> could be due to reactive process v cholecystitis --> wbc trend: 22-->18-->16-->14-->18-->19 --> peripheral smear has been reviewed --> ercp repeat in 6-8 weeks, stent was placed # Pancreatitis with alcohol abuse --> recommend etoh cessation --> amylase and lipase prn --> Status post ERCP with sphincterotomy and stent placement # Transaminitis --> likely related to etoh abuse --> in past seen by gi # Alcohol abuse -- recommend cessation # PEG inserted left lower quadrant The timing of this note does not necessarily reflect the time of the patient was seen. Greatly appreciate consultation! Subjective ROS Limited/Unobtainable: Yes Allergies: Coded Allergies: No Known Allergies (Unverified , 06/01/16) Subjective 07/05: bp was high today and dc was cancelled until tomorow, on librium 07/06: wbc was high though other counts are better, no f/c 07/10: seen by bedside, heart rate increased, appears agitated, wbc 13.9 07/11: to get ercp tomorrow, surgery and gi following 07/12 ercp, sphincterotomy, stent placement surgery done today, currently having tremors and tachy. wbc 15.9, hgb 14, plt 429 07/13: Pt is intubated, seen by bedside,wbc 22, on abx, no acute distress 07/14: awake and comfortable, still intubated on vent, labs noted hb trending down, wbc 18, hgb 8. 07/16: seen by bedside, awake, comfortable, wbc 14, hgb 9, plt 613 07/17: awake, comfortable, status post ERCP with sphincterotomy wbc 21, hgb 10, plt 689. 07/18; seen by bedside, awake comfortable, on venturi mask, wbc 23, plt 754. 07/19: seen by bedside, awake and comfortable, no events, wbc 21 07/20: now out of the icu, doing better, wbc improved, remains on abx as per ID 07/22: Pt is awake, comfortable, wbc 16, lt 632, on abx 07/23 Pt is awake, comfortable, wbc 15, plt 574, on abx, CXR revelals, Increasing opacities of the right lung and Slightly increasing right pleural effusion 07/24: ng has been removed, seen by other consultants, hgb has improved, no bleeding 07/25: seen by bedside, awake, comfortable, on nasal canula, failed video swallow test and has some PO meds, wbc trending down. 07/26: awake, comfortable, G-tube placement consent signed 07/27: a janell overnignt, in ICU , awake, alert, responsive, PEG inserted today, wbc 19. 07/30: resting in bed awake,alert disoriented on and off,Thoracentesis done, wbc trending up again, Chest x-ray reveals, Resolved right pleural effusion, post thoracentesis. No radiographically evident complication Persistent right mid and lower lung infiltrates. 07/31: seen by bedside, awake, confused, no signs of acute distress. Objective Last 24 Hour Vital Signs Date Time Temp Pulse Resp B/P (MAP) Pulse Ox O2 Delivery O2 Flow Rate FiO2 07/31/18 17:34 81 113/75 07/31/18 16:00 81 07/31/18 16:00 99.0 79 20 113/75 (88) 93 07/31/18 12:00 98.6 74 20 112/78 (89) 96 07/31/18 12:00 73 07/31/18 09:14 93 124/84 07/31/18 09:00 Room Air 07/31/18 08:00 98.2 93 20 124/84 (97) 95 07/31/18 08:00 90 07/31/18 06:40 85 17 Room Air 21 07/31/18 06:40 98 Room Air 21 07/31/18 06:40 Room Air 21 07/31/18 04:00 90 07/31/18 04:00 98.5 90 18 128/86 (100) 93 07/31/18 00:00 89 07/31/18 00:00 99.4 94 19 119/76 (90) 92 07/30/18 21:00 Room Air 07/30/18 20:09 94 Room Air 21 07/30/18 20:09 89 18 Room Air 21 07/30/18 20:09 Room Air 21 07/30/18 20:00 88 07/30/18 20:00 100.4 98 18 117/80 (92) 92 Intake and Output 07/30/18 07/31/18 19:00 07:00 Intake Total 660 ml 765.0 ml Output Total 255 ml 600 ml Balance 405 ml 165.0 ml Free Water 90 ml IV Total 475.0 ml Tube Feeding 540 ml 200 ml Other 120 ml Output Urine Total 250 ml 600 ml Drainage Total 5 ml # Voids 1 # Bowel Movements 2 Laboratory Tests 07/30/18 22:00: Urine Color Yellow, Urine Appearance Clear, Urine pH 5, Urine Specific [place] 1.025, Urine Protein 2+H, Urine Glucose (UA) Negative, Urine Ketones 1+H, Urine Blood 3+H, Urine Nitrite Negative, Urine Bilirubin Negative, Urine Urobilinogen 1H, Urine Leukocyte Esterase 1+H, Urine RBC 2-4H, Urine WBC 2-4, Urine Squamous Epithelial Cells Few, Urine Bacteria Few 07/31/18 05:35: White Blood Count 13.0H, Red Blood Count 4.08L, Hemoglobin 13.8L, Hematocrit 40.6L, Mean Corpuscular Volume 100H, Mean Corpuscular Hemoglobin 33.9H, Mean Corpuscular Hemoglobin Concent 34.0, Red Cell Distribution Width 13.3, Platelet Count 561H, Mean Platelet Volume 6.9, Neutrophils (%) (Auto) 77.9H, Lymphocytes (%) (Auto) 10.8L, Monocytes (%) (Auto) 4.9, Eosinophils (%) (Auto) 5.8H, Basophils (%) (Auto) 0.6, Erythrocyte Sedimentation Rate 26H, Sodium Level 141, Potassium Level 3.8, Chloride Level 104, Carbon Dioxide Level 27, Anion Gap 10, Blood Urea Nitrogen 23H, Creatinine 0.9, Estimat Glomerular Filtration Rate > 60 , Glucose Level 101, Calcium Level 9.3, Total Bilirubin 0.6, Aspartate Amino Transf (AST/SGOT) 133H, Alanine Aminotransferase (ALT/SGPT) 197H, Alkaline Phosphatase 130H, C-Reactive Protein, Quantitative 6.3H, Total Protein 8.8H, Albumin 2.3L, Globulin 6.5, Albumin/Globulin Ratio 0.4L, Amylase Level 148H, Lipase 859H Height (Feet): 5 Height (Inches): 8.00 Weight (Pounds): 159 Objective Physical Exam General Appearance: A+O x3, NAD, ++ asterixis HEENT: normocephalic, atraumatic Neck: non-tender, normal alignment Respiratory/Chest: chest wall non-tender, lungs clear Cardiovascular/Chest: normal peripheral pulses, normal rate Abdomen: normal bowel sounds, non tender.++PEG Extremities: normal range of motion Guy Salazar MD Jul 31, 2018 18:08
--- NOTE | 2018-07-31 19:35 | NUR ---
HAND-OFF: Report given to JAVIER Hatch. Patient is in stable condition. Endorsed plan of care.
[2018-07-31 20:00] VITALS: BP 124/73
--- NOTE | 2018-07-31 20:36 | NUR ---
NURSE NOTES: Received report from JAVIER Martino. Patient asleep and rested. PICC line clean and intact. Bed in lowest position and call light within reach. Will continue plan of care.
[2018-07-31] MEDS: Dyna-Hex 2% Top Sol 2oz TOPIC SCH (20:51)
--- NOTE | 2018-07-31 21:23 | Cardiology Progress Note ---
Assessment/Plan Assessment/Plan 1, Paroxysmal atrial fibrillation, continue propranolol, not a suitable candidate for anticoag therapy. 2. Moderate pulmonary HTN. Subjective Subjective Sinus rhythm at rate of 81. Objective Last 24 Hour Vital Signs Date Time Temp Pulse Resp B/P (MAP) Pulse Ox O2 Delivery O2 Flow Rate FiO2 07/31/18 17:34 81 113/75 07/31/18 16:00 81 07/31/18 16:00 99.0 79 20 113/75 (88) 93 07/31/18 12:00 98.6 74 20 112/78 (89) 96 07/31/18 12:00 73 07/31/18 09:14 93 124/84 07/31/18 09:00 Room Air 07/31/18 08:00 98.2 93 20 124/84 (97) 95 07/31/18 08:00 90 07/31/18 06:40 85 17 Room Air 21 07/31/18 06:40 98 Room Air 21 07/31/18 06:40 Room Air 21 07/31/18 04:00 90 07/31/18 04:00 98.5 90 18 128/86 (100) 93 07/31/18 00:00 89 07/31/18 00:00 99.4 94 19 119/76 (90) 92 Intake and Output 07/30/18 07/31/18 19:00 07:00 Intake Total 660 ml 765.0 ml Output Total 255 ml 600 ml Balance 405 ml 165.0 ml Free Water 90 ml IV Total 475.0 ml Tube Feeding 540 ml 200 ml Other 120 ml Output Urine Total 250 ml 600 ml Drainage Total 5 ml # Voids 1 # Bowel Movements 2 2D Echo: LVEF 65%, Mild LVH, RVSP 50 mmHg, Mild MR/NC, Normal LVD Laboratory Tests Test 07/30/18 22:00 07/31/18 05:35 Urine Color Yellow Urine Appearance Clear Urine pH 5 (4.5-8.0) Urine Specific [place] 1.025 (1.005-1.035) Urine Protein 2+ (NEGATIVE) H Urine Glucose (UA) Negative (NEGATIVE) Urine Ketones 1+ (NEGATIVE) H Urine Blood 3+ (NEGATIVE) H Urine Nitrite Negative (NEGATIVE) Urine Bilirubin Negative (NEGATIVE) Urine Urobilinogen 1 MG/DL (0.0-1.0) H Urine Leukocyte Esterase 1+ (NEGATIVE) H Urine RBC 2-4 /HPF (0 - 0) H Urine WBC 2-4 /HPF (0 - 0) Urine Squamous Epithelial Cells Few /LPF (NONE/OCC) Urine Bacteria Few /HPF (NONE) White Blood Count 13.0 K/UL (4.8-10.8) H Red Blood Count 4.08 M/UL (4.70-6.10) L Hemoglobin 13.8 G/DL (14.2-18.0) L Hematocrit 40.6 % (42.0-52.0) L Mean Corpuscular Volume 100 FL (80-99) H Mean Corpuscular Hemoglobin 33.9 PG (27.0-31.0) H Mean Corpuscular Hemoglobin Concent 34.0 G/DL (32.0-36.0) Red Cell Distribution Width 13.3 % (11.6-14.8) Platelet Count 561 K/UL (150-450) H Mean Platelet Volume 6.9 FL (6.5-10.1) Neutrophils (%) (Auto) 77.9 % (45.0-75.0) H Lymphocytes (%) (Auto) 10.8 % (20.0-45.0) L Monocytes (%) (Auto) 4.9 % (1.0-10.0) Eosinophils (%) (Auto) 5.8 % (0.0-3.0) H Basophils (%) (Auto) 0.6 % (0.0-2.0) Erythrocyte Sedimentation Rate 26 MM/HR (0-20) H Sodium Level 141 MMOL/L (136-145) Potassium Level 3.8 MMOL/L (3.5-5.1) Chloride Level 104 MMOL/L (98-107) Carbon Dioxide Level 27 MMOL/L (21-32) Anion Gap 10 mmol/L (5-15) Blood Urea Nitrogen 23 mg/dL (7-18) H Creatinine 0.9 MG/DL (0.55-1.30) Estimat Glomerular Filtration Rate > 60 mL/min (>60) Glucose Level 101 MG/DL (74-106) Calcium Level 9.3 MG/DL (8.5-10.1) Total Bilirubin 0.6 MG/DL (0.2-1.0) Aspartate Amino Transf (AST/SGOT) 133 U/L (15-37) H Alanine Aminotransferase (ALT/SGPT) 197 U/L (12-78) H Alkaline Phosphatase 130 U/L (46-116) H C-Reactive Protein, Quantitative 6.3 mg/dL (0.00-0.90) H Total Protein 8.8 G/DL (6.4-8.2) H Albumin 2.3 G/DL (3.4-5.0) L Globulin 6.5 g/dL Albumin/Globulin Ratio 0.4 (1.0-2.7) L Amylase Level 148 U/L (25-115) H Lipase 859 U/L (73-393) H Objective HEENT: normocephalic, atraumatic, anicteric, PERRL, dry mucous membrane Neck: no JVD, no carotid bruit. Respiratory/Chest: chest wall non-tender, lungs clear, normal breath sounds, no respiratory distress, no accessory muscle use Cardiovascular/Chest: Normal S1S2, no murmurs, gallops or rubs, rate,regular rhythm Abdomen: normal bowel sounds, soft, no organomegaly, no mass, other - mild epigastric ttp Extremities: normal range of motion, non-tender, normal inspection, no calf tenderness, normal capillary refill, non-pitting Skin Exam: normal pigmentation, warm/dry Neurologic: no motor/sensory deficits, alert, oriented x 3, responsive, normal mood/affect Luis Patel MD Jul 31, 2018 21:23
[2018-08-01] VITALS: BP 113/92
[2018-08-01 04:00] VITALS: BP 115/82
[2018-08-01] MEDS: NovoLOG Insulin Flexpen SUBQ SCH ×3 (06:00→18:00)
--- NOTE | 2018-08-01 07:14 | NUR ---
NURSE NOTES: Received report from Holden HERRERA. no distress/SOB noted. PICC line clean and intact. Bed in lowest position and call light within reach. Will continue plan of care.
--- NOTE | 2018-08-01 07:15 | NUR ---
HAND-OFF: Report given to JAVIER Martino.
[2018-08-01 08:00] VITALS: BP 116/81
[2018-08-01 08:05] LABS: BASOPHILS % (AUTO) 0.8 % (0.0-2.0); HEMOGLOBIN 10.4 G/DL (14.2-18.0); LYMPHOCYTES % (AUTO) 11.1 % (20.0-45.0); MEAN CORPUSCULAR VOLUME 100 FL (80-99); MONOCYTES % (AUTO) 5.2 % (1.0-10.0); NEUTROPHILS % (AUTO) 75.9 % (45.0-75.0); PLATELET COUNT 421 K/UL (150-450); RED BLOOD COUNT 3.11 M/UL (4.70-6.10); WHITE BLOOD COUNT 11.3 K/UL (4.8-10.8)
[2018-08-01 08:25] LABS: ANION GAP 12 mmol/L (5-15); BLOOD UREA NITROGEN 12 mg/dL (7-18); CALCIUM 6.8 MG/DL (8.5-10.1); CARBON DIOXIDE 25 MMOL/L (21-32); CHLORIDE 112 MMOL/L (98-107); CREATININE 0.6 MG/DL (0.55-1.30); SODIUM 149 MMOL/L (136-145)
[2018-08-01 08:43] LABS: POTASSIUM 2.7 MMOL/L (3.5-5.1)
[2018-08-01 09:06] VITALS: BP 116/81
[2018-08-01] MEDS: Pantoprazole Inj IVP SCH ×2 (09:18→21:08)
[2018-08-01] MEDS: Propranolol 40mg tab GT SCH ×2 (09:18→17:29)
[2018-08-01] MEDS: Vancomycin 1.5gm/D5W 275ml IVPB SCH ×2 (09:22→21:22)
[2018-08-01] MEDS: Heparin 5000 units/ml inj SUBQ SCH ×2 (09:23→21:10)
--- NOTE | 2018-08-01 10:00 | NUR ---
RADIOLOGY DEPT. CHEST X-RAY DONE.-P.DYE
--- NOTE | 2018-08-01 10:01 | NUR ---
NURSE NOTES: Notified Dr. Ann about low potassium and received TO order for KCL 40 ml GT once and carried out
--- NOTE | 2018-08-01 10:09 | Diagnostic Imaging Report ---
Indication: Cough Technique: One view of the chest Comparison: To 05/08/2019 Findings: Interim improvement of previously demonstrated right mid and lower lung parenchymal opacity, with some residual. There is a small amount of pleural fluid on the right, slightly increased from the prior exam. Left lung and pleural space are largely clear, without definite findings corresponding to the findings described on recent CT scan. The heart size is normal. Left arm PICC remains. Postsurgical changes of the upper abdomen are again noted. Right hemidiaphragm remains slightly elevated Impression: Improving but persistent right lung infiltrate, over 2 days. Other stable findings as described
--- NOTE | 2018-08-01 10:53 | GI Progress Note ---
Assessment/Plan Problems: (1) Abnormal LFTs ICD Codes: R79.89 - Other specified abnormal findings of blood chemistry SNOMED: 847747915 (2) Cholecystitis, acute ICD Codes: K81.0 - Acute cholecystitis SNOMED: 09064634 (3) Hepatitis C ICD Codes: B19.20 - Unspecified viral hepatitis C without hepatic coma SNOMED: 68018358 (4) Fatty liver ICD Codes: K76.0 - Fatty (change of) liver, not elsewhere classified SNOMED: 102199291 (5) Alcoholic pancreatitis ICD Codes: K85.20 - Alcohol induced acute pancreatitis without necrosis or infection SNOMED: 095885470 (6) Pancreatitis, acute ICD Codes: K85.90 - Acute pancreatitis without necrosis or infection, unspecified SNOMED: 972691782 Status: unchanged Status Narrative Discussed with Dr. Yip Assessment/Plan SUMMARY OF FINDINGS: 1. 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 2. Status post ERCP with sphincterotomy, balloon assistance sludge and some pus extraction from the common bile duct and then stent placement. s/p open jocelyn, now in ICU with pancreatitis hepatitis C positive Pancreatitis s/p PEG Not tolerating G-tube feedings RECOMMENDATIONS: Continue G-tube feedings per RD to goal, add low-dose Reglan ATC Trend lipase fu labs The patient will need repeat ERCP in 6 to 8 weeks for stent removal. outpatient Hep C tx dc planning The patient was seen and examined at bedside and all new and available data was reviewed in the patients chart. I agree with the above findings, impression and plan. (Patient seen earlier today. Signature stamp does not reflect patient encounter time.). - Toñito Yip MD Subjective Subjective limited, more awake and alert Objective Last 24 Hour Vital Signs Date Time Temp Pulse Resp B/P (MAP) Pulse Ox O2 Delivery O2 Flow Rate FiO2 08/01/18 09:18 80 116/81 08/01/18 09:06 98.8 80 20 116/81 (93) 95 08/01/18 09:00 Room Air 08/01/18 08:00 98.8 80 20 116/81 (93) 95 08/01/18 08:00 92 08/01/18 04:00 98.0 79 18 115/82 (93) 93 08/01/18 04:00 79 08/01/18 00:00 97.4 78 17 113/92 (99) 96 08/01/18 00:00 78 07/31/18 21:00 Room Air 07/31/18 20:00 74 07/31/18 20:00 97.4 74 18 124/73 (90) 94 07/31/18 17:34 81 113/75 07/31/18 16:00 81 07/31/18 16:00 99.0 79 20 113/75 (88) 93 07/31/18 12:00 98.6 74 20 112/78 (89) 96 07/31/18 12:00 73 Intake and Output 07/31/18 08/01/18 19:00 07:00 Intake Total 375.0 ml 650 ml Output Total 650 ml 705 ml Balance -275.0 ml -55 ml Free Water 300 ml IV Total 375.0 ml Tube Feeding 350 ml Output Urine Total 650 ml 700 ml Drainage Total 5 ml # Bowel Movements 1 Laboratory Tests Test 08/01/18 06:00 08/01/18 08:00 White Blood Count 11.3 K/UL (4.8-10.8) H Red Blood Count 3.11 M/UL (4.70-6.10) L Hemoglobin 10.4 G/DL (14.2-18.0) L Hematocrit 31.0 % (42.0-52.0) L Mean Corpuscular Volume 100 FL (80-99) H Mean Corpuscular Hemoglobin 33.5 PG (27.0-31.0) H Mean Corpuscular Hemoglobin Concent 33.7 G/DL (32.0-36.0) Red Cell Distribution Width 13.0 % (11.6-14.8) Platelet Count 421 K/UL (150-450) Mean Platelet Volume 6.6 FL (6.5-10.1) Neutrophils (%) (Auto) 75.9 % (45.0-75.0) H Lymphocytes (%) (Auto) 11.1 % (20.0-45.0) L Monocytes (%) (Auto) 5.2 % (1.0-10.0) Eosinophils (%) (Auto) 7.0 % (0.0-3.0) H Basophils (%) (Auto) 0.8 % (0.0-2.0) Sodium Level 149 MMOL/L (136-145) H Potassium Level 2.7 MMOL/L (3.5-5.1) *L Chloride Level 112 MMOL/L (98-107) H Carbon Dioxide Level 25 MMOL/L (21-32) Anion Gap 12 mmol/L (5-15) Blood Urea Nitrogen 12 mg/dL (7-18) Creatinine 0.6 MG/DL (0.55-1.30) Estimat Glomerular Filtration Rate > 60 mL/min (>60) Glucose Level 89 MG/DL (74-106) Calcium Level 6.8 MG/DL (8.5-10.1) #L Vancomycin Level Trough 16.9 ug/mL (5.0-12.0) H Height (Feet): 5 Height (Inches): 8.00 Weight (Pounds): 159 General Appearance: WD/WN, no apparent distress, alert Cardiovascular: normal rate Respiratory/Chest: normal breath sounds, no respiratory distress Abdominal Exam: normal bowel sounds, non tender, soft, GT site - Clean dry and intact Extremities: non-tender Sonja Neely NP Aug 01, 2018 10:53
--- NOTE | 2018-08-01 11:09 | NUR ---
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 97.4 HR 78 RR 18 B/P 113/92 K 2.7 NA 149 WBC 11.3 CXR= IMPROVING BUT PERSISTENT RIGHT LUNG INFILTRATE IS: VANCO IV MEROPENEM IV PROTONIX IV HEPARIN SUBC TELE STATUS
--- NOTE | 2018-08-01 12:32 | General Progress Note ---
Assessment/Plan Assessment/Plan #Sepsis #Acute purulent gangrenous cholecystitis. #klebsiella cholecystitis #acute Hypoxic respiratory failure #Acute Metabolic Encephalopathy - due to alcohol withdrawal and sepsis - meropenem, Diflucan - bcx x 2 ngtd - s/p ercp 07/12 - gen surg following s/p lap jocelyn converted to open jocelyn 07/12 - extubated on 07/16/18 - off o2 ncl - pulm following appreciated - pain control - appreciate surg recs - tpn -NG tube removed -s/p PEG -CT A/P pending today #Acute Blood Loss Anemia - due to recent surgery - no overt bleeding noted currently - hgb 6.8 07/15, transfused 2U, 9.7 (07/16) - stable #Pleural Effusions - b/l - per mrcp - stable - pulm consult appreciated #Alcohol Pancreatitis #Intractable abdominal pain #intractable nausea/vomiting #Transaminitis #Alcohol Hepatitis #Alcohol withdrawals #Fatty Liver Disease #Hepatitis C - LFTs 446/532 - Lipase 687 - due to alcohol abuse - INR 1.0 - discriminant function, 4.5 , no need for steroids - US abd completed and reviewed, showing fatty liver disease. GS present, no obstruction noted - ppi - PRN antiemetics, zofran prn - Per GI, will need ERCP in 6-8 weeks for stent removal #Failure to thrive - due to alcohol withdrawals and the above - alcoholic pancreatitis - fluids #Alcohol Abuse - educated on cessation for 15 mins - patient states he understands and will try to quit - RN notified to monitor carefully with withdrawals - prn ativan - ciwa #Uncontrolled HTN and tachycardia overnight -all oral BP meds held for now -continue metoprolol IV q6h -transferred to ICU, on amiodarone drip #Tobacco abuse - smokes 1ppd - educated on smoking cessation for over 15 mins, states he understands the risks of smoking and will try to quit #Dysphagia -seen by [employer] DIRECT[employer] -strict NPO recommended at this time -Continue tube feeds via PEG #Hypernatremia -start ree water through th G-tube #Hypokalemia replace via G-tube repeat BMP in AM Subjective Date patient seen: Aug 01, 2018 Time patient seen: 11:30 Cardiovascular: Denies: chest pain, palpitations Respiratory: Denies: cough Gastrointestinal/Abdominal: Denies: abdominal pain Allergies: Coded Allergies: No Known Allergies (Unverified , 06/01/16) Subjective Medicine follow up for multiple medical problems including acute gangrenous cholecystitis, acute hypoxic respiratory failure, acute encephalopathy Noted to have hypokalemia and hypernatremia this morning Objective Last 24 Hour Vital Signs Date Time Temp Pulse Resp B/P (MAP) Pulse Ox O2 Delivery O2 Flow Rate FiO2 08/01/18 09:18 80 116/81 08/01/18 09:06 98.8 80 20 116/81 (93) 95 08/01/18 09:00 Room Air 08/01/18 08:00 98.8 80 20 116/81 (93) 95 08/01/18 08:00 98 Room Air 21 08/01/18 08:00 92 08/01/18 08:00 Room Air 21 08/01/18 08:00 78 18 Room Air 21 08/01/18 04:00 98.0 79 18 115/82 (93) 93 08/01/18 04:00 79 08/01/18 00:00 97.4 78 17 113/92 (99) 96 08/01/18 00:00 78 07/31/18 21:00 Room Air 07/31/18 20:00 74 07/31/18 20:00 97.4 74 18 124/73 (90) 94 07/31/18 17:34 81 113/75 07/31/18 16:00 81 07/31/18 16:00 99.0 79 20 113/75 (88) 93 Intake and Output 07/31/18 08/01/18 18:59 06:59 Intake Total 475.0 ml 650 ml Output Total 650 ml 700 ml Balance -175.0 ml -50 ml Free Water 300 ml IV Total 475.0 ml Tube Feeding 350 ml Output Urine Total 650 ml 700 ml # Bowel Movements 1 Laboratory Tests 08/01/18 06:00: White Blood Count 11.3H, Red Blood Count 3.11L, Hemoglobin 10.4L, Hematocrit 31.0L, Mean Corpuscular Volume 100H, Mean Corpuscular Hemoglobin 33.5H, Mean Corpuscular Hemoglobin Concent 33.7, Red Cell Distribution Width 13.0, Platelet Count 421, Mean Platelet Volume 6.6, Neutrophils (%) (Auto) 75.9H, Lymphocytes ( %) (Auto) 11.1L, Monocytes (%) (Auto) 5.2, Eosinophils (%) (Auto) 7.0H, Basophils (%) (Auto) 0.8, Sodium Level 149H, Potassium Level 2.7*L, Chloride Level 112H, Carbon Dioxide Level 25, Anion Gap 12, Blood Urea Nitrogen 12, Creatinine 0.6, Estimat Glomerular Filtration Rate > 60, Glucose Level 89, Calcium Level 6.8#L 08/01/18 08:00: Vancomycin Level Trough 16.9H Height (Feet): 5 Height (Inches): 8.00 Weight (Pounds): 159 General Appearance: alert Cardiovascular: normal rate, regular rhythm Respiratory/Chest: lungs clear, normal breath sounds Abdomen: non tender Tomás Cruz MD Aug 01, 2018 12:32
--- NOTE | 2018-08-01 12:34 | NUR ---
NURSE NOTES: patient refused 12:00 o'clock vital sign
[2018-08-01] MEDS: Metoclopramide 10mg/10ml Liq GT SCH ×2 (13:47→21:09)
[2018-08-01 15:51] VITALS: BP 117/79
--- NOTE | 2018-08-01 16:29 | Infectious Diseases Prog Note ---
Assessment/Plan Assessment/Plan ASSESSMENT AND PLAN: 1. sepsis, klebsiella cholecystitis, s/p cholecystectomy, enterobacter pna, elevated lft's/lipase, pancreatitis, leukocytosis, fevers, sirs - meropenem and vancomycin for now - leukocytosis improved, lgt noted - chest x-ray improved, CT A/P noted - monitor labs, f/u on cultures 3. Smoking use. 4. Anemia. 5. Thrombocytosis. 6. No history of diabetes, hypertension, but he is on Norvasc. 7. No known allergies. 8. Social history positive for smoking and alcohol use. No history of intravenous drug abuse. 9. MAR was noted. 10. Case discussed with RN. 11. Continue treatment per primary consultants. 12. Case discussed at length the ICU nurse, the patient currently in ICU. 13. Continue skin care protocol and pulmonary treatments for now. Subjective Constitutional: Denies: fever HEENT: Denies: congestion Respiratory: Denies: shortness of breath Cardiovascular: Denies: chest pain Gastrointestinal/Abdominal: Denies: nausea Genitourinary: Reports: other - + melchor Neurologic: Denies: headache Psychiatric: Denies: depression Skin: Denies: rash Hematologic: Denies: bleeding Musculoskeletal: Denies: pain Allergies: Coded Allergies: No Known Allergies (Unverified , 06/01/16) Objective Vital Signs Last 24 Hour Vital Signs Date Time Temp Pulse Resp B/P (MAP) Pulse Ox O2 Delivery O2 Flow Rate FiO2 08/01/18 15:51 97.7 18 117/79 (92) 97 08/01/18 12:00 79 08/01/18 09:18 80 116/81 08/01/18 09:06 98.8 80 20 116/81 (93) 95 08/01/18 09:00 Room Air 08/01/18 08:00 98.8 80 20 116/81 (93) 95 08/01/18 08:00 98 Room Air 21 08/01/18 08:00 92 08/01/18 08:00 Room Air 21 08/01/18 08:00 78 18 Room Air 21 08/01/18 04:00 98.0 79 18 115/82 (93) 93 08/01/18 04:00 79 08/01/18 00:00 97.4 78 17 113/92 (99) 96 08/01/18 00:00 78 07/31/18 21:00 Room Air 07/31/18 20:00 74 07/31/18 20:00 97.4 74 18 124/73 (90) 94 07/31/18 17:34 81 113/75 Height (Feet): 5 Height (Inches): 8.00 Weight (Pounds): 159 General Appearance: no acute distress HEENT: normocephalic, atraumatic, anicteric, mucous membranes moist Respiratory/Chest: lungs clear, normal breath sounds, no respiratory distress, no accessory muscle use Cardiovascular: normal rate, regular rhythm, no gallop/murmur, no JVD Abdomen: normal bowel sounds, soft, non tender, no organomegaly, non distended Genitourinary: other - + melchor Extremities: no cyanosis Skin: no rash 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 Apparent elevation of the right hemidiaphragm is again noted. The left lung demonstrates a very faint opacity in the left midlung which is not evident previously. However, interstitial congestion in the left lung has improved. Impression: Persistent right-sided pleural effusion and fairly extensive parenchymal infiltrate or edema Improved left lung interstitial congestion. Focal patchy left lung abnormality was not evident previously, however, and could represent a small area of infiltrate Chest x-ray - 07/22/18 - COMPARISON: Chest x-ray 07/19/18 837 FINDINGS: Lungs: Increasing opacities of the right lung. Pleural space: Slightly increasing right pleural effusion. No pneumothorax. Heart: Unremarkable. No cardiomegaly. Mediastinum: Unremarkable. Bones/joints: Unremarkable. Tubes, lines and devices: Left PICC line tip appears further advanced into the right atrium. NG tube traverses diaphragm, tip is not seen. Upper abdomen: Midepigastric gastric surgical clips. IMPRESSION: 1. Left PICC line tip appears further advanced into the right atrium. 2. Increasing opacities of the right lung. 3. Slightly increasing right pleural effusion. 07/24/18 - chest x-ray - A single view chest radiograph was obtained. Findings: Hazy opacity at the right lung base may be a pleural effusion. Heart is enlarged. There is suggestion of mild interstitial edema. PICC line is present on the left. IMPRESSION: Suspected mild interstitial edema and a small right pleural effusion. Chest x-ray - 07/27/18- Comparison: 07/26/2018 A single view chest radiograph was obtained. Findings: Patchy infiltrate noted in the right lung. There is less right pleural effusion present. Heart is mildly enlarged. PICC line is noted. IMPRESSION: Diminished right pleural effusion which may have 5 decreased or shifted. Patchy right basal and perihilar infiltrate noted Chest x-ray - 07/30/18 Comparison: 07/30/2018 Findings: Interim resolution of previously demonstrated right pleural effusion, postthoracentesis. Hazy infiltrates are seen throughout the right mid and lower lung. The left lung and pleural space remain clear. Left arm PICC remains. Impression: Resolved right pleural effusion, post thoracentesis. No radiographically evident complication Persistent right mid and lower lung infiltrates Chest x-ray - 08/01/18 - Findings: Interim improvement of previously demonstrated right mid and lower lung parenchymal opacity, with some residual. There is a small amount of pleural fluid on the right, slightly increased from the prior exam. Left lung and pleural space are largely clear, without definite findings corresponding to the findings described on recent CT scan. The heart size is normal. Left arm PICC remains. Postsurgical changes of the upper abdomen are again noted. Right hemidiaphragm remains slightly elevated Impression: Improving but persistent right lung infiltrate, over 2 days. Other stable findings as described CT abdomen and pelvis: IMPRESSION: Status post cholecystectomy. Complex 13 x 5 x 13.7 cm mixed attenuation collection in and extending from the gallbladder fossa. Given the presence of high attenuation elements, this most likely represents a postoperative hematoma. Infected collections not completely excludable, particularly in view of the presence of some rim enhancement Endobiliary stent in good position. No biliary ductal dilatation Atelectasis of a significant portion of the right lower lobe. However, volume loss is significantly improved from 07/10/2018 Fairly extensive infiltrates in the right lower lobe, with less extensive infiltrates in the right middle lobe, right upper lobe, and left upper lobe. There may be a component of chronic fibrosis within the right lower lobe opacities as well PICC in good position Trace right pleural effusion Gastrostomy in good position Microbiology Date/Time Source Procedure Growth Status 07/30/18 21:15 Blood Blood Culture - Preliminary NO GROWTH AFTER 24 HOURS Resulted 07/12/18 20:50 Peritoneal Fluid Gram Stain - Final Complete 07/12/18 20:50 Peritoneal Fluid Aerobic Culture - Final NO GROWTH Complete 07/12/18 20:50 Peritoneal Fluid Anaerobic Culture - Final NO GROWTH AFTER 5 DAYS Complete 07/21/18 14:45 Sputum Induced Gram Stain - Final Complete 07/21/18 14:45 Sputum Culture - Final Nery Albicans Usual Respiratory Carolyn Complete 07/30/18 22:00 External Cath Urine Culture - Preliminary NO GROWTH Resulted Microbiology Date/Time Source Procedure Growth Status 07/30/18 21:15 Blood Blood Culture - Preliminary NO GROWTH AFTER 24 HOURS Resulted 07/30/18 21:10 Blood Blood Culture - Preliminary NO GROWTH AFTER 24 HOURS Resulted 07/30/18 22:00 External Cath Urine Culture - Preliminary NO GROWTH Resulted Laboratory Tests Test 08/01/18 06:00 08/01/18 08:00 White Blood Count 11.3 K/UL (4.8-10.8) H Red Blood Count 3.11 M/UL (4.70-6.10) L Hemoglobin 10.4 G/DL (14.2-18.0) L Hematocrit 31.0 % (42.0-52.0) L Mean Corpuscular Volume 100 FL (80-99) H Mean Corpuscular Hemoglobin 33.5 PG (27.0-31.0) H Mean Corpuscular Hemoglobin Concent 33.7 G/DL (32.0-36.0) Red Cell Distribution Width 13.0 % (11.6-14.8) Platelet Count 421 K/UL (150-450) Mean Platelet Volume 6.6 FL (6.5-10.1) Neutrophils (%) (Auto) 75.9 % (45.0-75.0) H Lymphocytes (%) (Auto) 11.1 % (20.0-45.0) L Monocytes (%) (Auto) 5.2 % (1.0-10.0) Eosinophils (%) (Auto) 7.0 % (0.0-3.0) H Basophils (%) (Auto) 0.8 % (0.0-2.0) Sodium Level 149 MMOL/L (136-145) H Potassium Level 2.7 MMOL/L (3.5-5.1) *L Chloride Level 112 MMOL/L (98-107) H Carbon Dioxide Level 25 MMOL/L (21-32) Anion Gap 12 mmol/L (5-15) Blood Urea Nitrogen 12 mg/dL (7-18) Creatinine 0.6 MG/DL (0.55-1.30) Estimat Glomerular Filtration Rate > 60 mL/min (>60) Glucose Level 89 MG/DL (74-106) Calcium Level 6.8 MG/DL (8.5-10.1) #L Vancomycin Level Trough 16.9 ug/mL (5.0-12.0) H Current Medications Medications (Trade) Dose Ordered Sig/[place] Route PRN Reason Start Time Stop Time Status Last Admin Dose Admin Acetaminophen (Tylenol) 650 mg Q4H PRN RECTAL Prn for Temp >100.5 07/28/18 21:05 08/14/18 21:04 Al Hydroxide/Mg Hydroxide (Mylanta) 15 ml Q6H PRN NG DYSPEPSIA 07/28/18 21:05 08/27/18 21:04 Chlorhexidine Gluconate (Estrella-Hex 2%) 1 applic DAILY@2000 TOPIC 07/29/18 20:00 08/15/18 19:59 07/31/18 20:51 Dextrose (Dextrose 50%) 25 ml Q30M PRN IV Hypoglycemia 07/28/18 21:05 08/17/18 21:04 Dextrose (Dextrose 50%) 50 ml Q30M PRN IV hypoglycemia 07/28/18 21:05 08/17/18 21:04 Diphenhydramine HCl (Benadryl) 12.5 mg Q6H PRN IVP Itching/Pruritis 07/28/18 21:05 08/27/18 21:04 Heparin Sodium (Porcine) (Heparin 5000 units/ml) 5,000 units Q12HR SUBQ 07/28/18 21:00 08/02/18 08:59 08/01/18 09:23 Insulin Aspart (NovoLOG) No Dose Q6HR SUBQ 07/29/18 00:00 08/17/18 12:59 Ipratropium [place] (Atrovent) 500 mcg Q4H PRN HHN Shortness of Breath 07/28/18 21:07 08/01/18 21:06 Levalbuterol HCl (Xopenex) 0.63 mg Q4H PRN HHN SOB/wheezing 07/28/18 21:07 08/01/18 21:06 Magnesium Hydroxide (Mom) 30 ml BIDPRN PRN NG Constipation 07/28/18 21:05 08/27/18 21:04 Meropenem 1 gm/ Sodium Chloride 100 ml @ 200 mls/hr Q8HR IVPB 07/28/18 22:00 08/02/18 05:59 08/01/18 13:46 Metoclopramide HCl (Reglan) 5 mg EVERY 8 HOURS GT 08/01/18 14:00 08/31/18 13:59 08/01/18 13:47 Nicotine (Nicoderm) 1 patch Q24H TDERMAL 07/29/18 18:00 08/08/18 17:59 07/31/18 17:35 Ondansetron HCl (Zofran) 4 mg Q6H PRN IVP Nausea & Vomiting 07/28/18 21:05 08/27/18 21:04 Pantoprazole (Protonix) 40 mg EVERY 12 HOURS IVP 07/29/18 09:00 08/28/18 08:59 08/01/18 09:18 Propranolol HCl (Inderal) 40 mg BID GT 07/29/18 09:00 08/27/18 11:59 08/01/18 09:18 Vancomycin HCl (Vanco rx to dose) 1 ea DAILY PRN MISC Per rx protocol 07/30/18 18:15 08/29/18 18:14 Vancomycin HCl/ Dextrose 275 ml @ 137.5 mls/ hr Q12HR IVPB 07/31/18 09:00 08/05/18 08:59 08/01/18 09:22 Tyler Madsen MD Aug 01, 2018 16:29
--- NOTE | 2018-08-01 17:00 | General Progress Note ---
Assessment/Plan Assessment/Plan Anemia of chronic disease due to underlying chronic medical issues, multifactorial, pancreatitis --> Anemia workup has been reviewed --> No evidence of hemolysis is noted, peripheral smear has been reviewed. --> Hgb goal >7. Transfuse prn. --> Epogen or iron at this time is not particularly indicated --> Medications have been reviewed # Thrombocytopenia is likely related to underlying reactive processs from pancreatitis, acute, as well as alcoholic intoxication and myelosuppression --> also patient has a history of hepatitis C from prior admission --> smear has been reviewed --> heparin sq is okay if needed for dvt ppx # Erythrocytosis is likely related to dehydration --> hgb goal >7, no evidence of bleeding currently --> given ivf already # Leukocytosis no e/o annie infection --> could be due to reactive process v cholecystitis --> wbc trend: 22-->18-->16-->14-->18-->19 --> peripheral smear has been reviewed --> ercp repeat in 6-8 weeks, stent was placed # Pancreatitis with alcohol abuse --> recommend etoh cessation --> amylase and lipase prn --> Status post ERCP with sphincterotomy and stent placement # Transaminitis --> likely related to etoh abuse --> in past seen by gi # Alcohol abuse -- recommend cessation # PEG inserted left lower quadrant The timing of this note does not necessarily reflect the time of the patient was seen. Greatly appreciate consultation! Subjective Constitutional: Denies: no symptoms, chills, diaphoresis, fever, malaise, weakness, other HEENT: Denies: no symptoms, eye pain, blurred vision, tearing, double vision, ear pain, ear discharge, nose pain, nose congestion, throat pain, throat swelling, mouth pain, mouth swelling, other Cardiovascular: Denies: no symptoms, chest pain, edema, irregular heart rate, lightheadedness, palpitations, syncope, other Respiratory: Denies: no symptoms, cough, orthopnea, shortness of breath, SOB with excertion, SOB at rest, sputum, stridor, wheezing, other Genitourinary: Denies: no symptoms, burning, discharge, frequency, flank pain, hematuria, incontinence, pain, urgency, other Neurologic/Psychiatric: Denies: no symptoms, anxiety, depressed, emotional problems, headache, numbness, paresthesia, pre-existing deficit, seizure, tingling, tremors, weakness, other Endocrine: Denies: no symptoms, excessive sweating, flushing, intolerance to cold, intolerance to heat, increased hunger, increased thirst, increased urine, unexplained weight gain, unexplained weight loss, other Hematologic/Lymphatic: Denies: no symptoms, anemia, easy bleeding, easy bruising, other Allergies: Coded Allergies: No Known Allergies (Unverified , 06/01/16) Subjective 07/05: bp was high today and dc was cancelled until tomorow, on librium 07/06: wbc was high though other counts are better, no f/c 07/10: seen by bedside, heart rate increased, appears agitated, wbc 13.9 07/11: to get ercp tomorrow, surgery and gi following 07/12 ercp, sphincterotomy, stent placement surgery done today, currently having tremors and tachy. wbc 15.9, hgb 14, plt 429 07/13: Pt is intubated, seen by bedside,wbc 22, on abx, no acute distress 07/14: awake and comfortable, still intubated on vent, labs noted hb trending down, wbc 18, hgb 8. 07/16: seen by bedside, awake, comfortable, wbc 14, hgb 9, plt 613 07/17: awake, comfortable, status post ERCP with sphincterotomy wbc 21, hgb 10, plt 689. 07/18; seen by bedside, awake comfortable, on venturi mask, wbc 23, plt 754. 07/19: seen by bedside, awake and comfortable, no events, wbc 21 07/20: now out of the icu, doing better, wbc improved, remains on abx as per ID 07/22: Pt is awake, comfortable, wbc 16, lt 632, on abx 07/23 Pt is awake, comfortable, wbc 15, plt 574, on abx, CXR revelals, Increasing opacities of the right lung and Slightly increasing right pleural effusion 07/24: ng has been removed, seen by other consultants, hgb has improved, no bleeding 07/25: seen by bedside, awake, comfortable, on nasal canula, failed video swallow test and has some PO meds, wbc trending down. 2/7: awake, comfortable, G-tube placement consent signed 07/27: a janell overnignt, in ICU , awake, alert, responsive, PEG inserted today, wbc 19. 07/30: resting in bed awake,alert disoriented on and off,Thoracentesis done, wbc trending up again, Chest x-ray reveals, Resolved right pleural effusion, post thoracentesis. No radiographically evident complication Persistent right mid and lower lung infiltrates. 07/31: seen by bedside, awake, confused, no signs of acute distress. 08/01: Pt is resting in bed, no acute events reported, Objective Last 24 Hour Vital Signs Date Time Temp Pulse Resp B/P (MAP) Pulse Ox O2 Delivery O2 Flow Rate FiO2 08/01/18 16:00 84 08/01/18 15:51 97.7 18 117/79 (92) 97 08/01/18 12:00 79 08/01/18 09:18 80 116/81 08/01/18 09:06 98.8 80 20 116/81 (93) 95 08/01/18 09:00 Room Air 08/01/18 08:00 98.8 80 20 116/81 (93) 95 08/01/18 08:00 98 Room Air 21 08/01/18 08:00 92 08/01/18 08:00 Room Air 21 08/01/18 08:00 78 18 Room Air 21 08/01/18 04:00 98.0 79 18 115/82 (93) 93 08/01/18 04:00 79 08/01/18 00:00 97.4 78 17 113/92 (99) 96 08/01/18 00:00 78 07/31/18 21:00 Room Air 07/31/18 20:00 74 07/31/18 20:00 97.4 74 18 124/73 (90) 94 07/31/18 17:34 81 113/75 Intake and Output 07/31/18 08/01/18 18:59 06:59 Intake Total 475.0 ml 650 ml Output Total 650 ml 700 ml Balance -175.0 ml -50 ml Free Water 300 ml IV Total 475.0 ml Tube Feeding 350 ml Output Urine Total 650 ml 700 ml # Bowel Movements 1 Laboratory Tests 08/01/18 06:00: White Blood Count 11.3H, Red Blood Count 3.11L, Hemoglobin 10.4L, Hematocrit 31.0L, Mean Corpuscular Volume 100H, Mean Corpuscular Hemoglobin 33.5H, Mean Corpuscular Hemoglobin Concent 33.7, Red Cell Distribution Width 13.0, Platelet Count 421, Mean Platelet Volume 6.6, Neutrophils (%) (Auto) 75.9H, Lymphocytes ( %) (Auto) 11.1L, Monocytes (%) (Auto) 5.2, Eosinophils (%) (Auto) 7.0H, Basophils (%) (Auto) 0.8, Sodium Level 149H, Potassium Level 2.7*L, Chloride Level 112H, Carbon Dioxide Level 25, Anion Gap 12, Blood Urea Nitrogen 12, Creatinine 0.6, Estimat Glomerular Filtration Rate > 60, Glucose Level 89, Calcium Level 6.8#L 08/01/18 08:00: Vancomycin Level Trough 16.9H Height (Feet): 5 Height (Inches): 8.00 Weight (Pounds): 159 Objective Physical Exam General Appearance: A+O x3, NAD, ++ asterixis HEENT: normocephalic, atraumatic Neck: non-tender, normal alignment Respiratory/Chest: chest wall non-tender, lungs clear Cardiovascular/Chest: normal peripheral pulses, normal rate Abdomen: normal bowel sounds, non tender.++PEG Extremities: normal range of motion Guy Salazar MD Aug 01, 2018 17:00
--- NOTE | 2018-08-01 18:02 | Pulmonology Progress Note ---
Assessment/Plan Problems: (1) Cholecystitis, acute (2) Alcoholic pancreatitis (3) Pancreatitis, acute (4) Alcohol abuse (5) Abnormal LFTs (6) Gangrenous cholecystitis (7) Respiratory disorder with ventilator dependence Assessment & Plan: Extubated and TTF (8) Blood loss anemia (9) Pneumonia (10) Hepatitis C (11) Fatty liver Assessment/Plan F/U pleural fluid studies Optimize pulmonary hygiene/mobilize as tolerated Titrate down FiO2 to keep SaO2 > 90% PRN ATROVENT HHN's Abx (Jair & Vanco) per ID, F/U Cx's and monitor WCt GTF's GI & surgery recs Montor volumes and renal function DVT Px: Hep SQ FC Subjective Allergies: Coded Allergies: No Known Allergies (Unverified , 06/01/16) Subjective AFVSS on RA CT reviewed WCt better Carlos TFs, denies cough/congestion/SOB/wheezing, no FC Objective Last 24 Hour Vital Signs Date Time Temp Pulse Resp B/P (MAP) Pulse Ox O2 Delivery O2 Flow Rate FiO2 08/01/18 17:29 84 117/79 08/01/18 16:00 84 08/01/18 15:51 97.7 18 117/79 (92) 97 08/01/18 12:00 79 08/01/18 09:18 80 116/81 08/01/18 09:06 98.8 80 20 116/81 (93) 95 08/01/18 09:00 Room Air 08/01/18 08:00 98.8 80 20 116/81 (93) 95 08/01/18 08:00 98 Room Air 21 08/01/18 08:00 92 08/01/18 08:00 Room Air 21 08/01/18 08:00 78 18 Room Air 21 08/01/18 04:00 98.0 79 18 115/82 (93) 93 08/01/18 04:00 79 08/01/18 00:00 97.4 78 17 113/92 (99) 96 08/01/18 00:00 78 07/31/18 21:00 Room Air 07/31/18 20:00 74 07/31/18 20:00 97.4 74 18 124/73 (90) 94 Intake and Output 07/31/18 08/01/18 18:59 06:59 Intake Total 475.0 ml 650 ml Output Total 650 ml 700 ml Balance -175.0 ml -50 ml Free Water 300 ml IV Total 475.0 ml Tube Feeding 350 ml Output Urine Total 650 ml 700 ml # Bowel Movements 1 General Appearance: WD/WN, no acute distress HEENT: normocephalic, atraumatic, anicteric, mucous membranes moist Respiratory/Chest: chest wall non-tender, lungs clear, normal breath sounds, no respiratory distress, no accessory muscle use Cardiovascular: normal peripheral pulses, normal rate, regular rhythm Abdomen: normal bowel sounds, soft, non tender, no organomegaly, non distended , no mass, other - wound dressed Extremities: no cyanosis, no clubbing, no edema Microbiology Date/Time Source Procedure Growth Status 07/30/18 21:15 Blood Blood Culture - Preliminary NO GROWTH AFTER 24 HOURS Resulted 07/30/18 21:10 Blood Blood Culture - Preliminary NO GROWTH AFTER 24 HOURS Resulted 07/30/18 22:00 External Cath Urine Culture - Preliminary NO GROWTH Resulted Laboratory Tests 08/01/18 06:00: White Blood Count 11.3H, Red Blood Count 3.11L, Hemoglobin 10.4L, Hematocrit 31.0L, Mean Corpuscular Volume 100H, Mean Corpuscular Hemoglobin 33.5H, Mean Corpuscular Hemoglobin Concent 33.7, Red Cell Distribution Width 13.0, Platelet Count 421, Mean Platelet Volume 6.6, Neutrophils (%) (Auto) 75.9H, Lymphocytes ( %) (Auto) 11.1L, Monocytes (%) (Auto) 5.2, Eosinophils (%) (Auto) 7.0H, Basophils (%) (Auto) 0.8, Sodium Level 149H, Potassium Level 2.7*L, Chloride Level 112H, Carbon Dioxide Level 25, Anion Gap 12, Blood Urea Nitrogen 12, Creatinine 0.6, Estimat Glomerular Filtration Rate > 60, Glucose Level 89, Calcium Level 6.8#L 08/01/18 08:00: Vancomycin Level Trough 16.9H Current Medications Medications (Trade) Dose Ordered Sig/[place] Route PRN Reason Start Time Stop Time Status Last Admin Dose Admin Acetaminophen (Tylenol) 650 mg Q4H PRN RECTAL Prn for Temp >100.5 07/28/18 21:05 08/14/18 21:04 Al Hydroxide/Mg Hydroxide (Mylanta) 15 ml Q6H PRN NG DYSPEPSIA 07/28/18 21:05 08/27/18 21:04 Chlorhexidine Gluconate (Estrella-Hex 2%) 1 applic DAILY@2000 TOPIC 07/29/18 20:00 08/15/18 19:59 07/31/18 20:51 Dextrose (Dextrose 50%) 25 ml Q30M PRN IV Hypoglycemia 07/28/18 21:05 08/17/18 21:04 Dextrose (Dextrose 50%) 50 ml Q30M PRN IV hypoglycemia 07/28/18 21:05 08/17/18 21:04 Diphenhydramine HCl (Benadryl) 12.5 mg Q6H PRN IVP Itching/Pruritis 07/28/18 21:05 08/27/18 21:04 Heparin Sodium (Porcine) (Heparin 5000 units/ml) 5,000 units Q12HR SUBQ 07/28/18 21:00 08/02/18 08:59 08/01/18 09:23 Insulin Aspart (NovoLOG) No Dose Q6HR SUBQ 07/29/18 00:00 08/17/18 12:59 Ipratropium [place] (Atrovent) 500 mcg Q4H PRN HHN Shortness of Breath 07/28/18 21:07 08/01/18 21:06 Levalbuterol HCl (Xopenex) 0.63 mg Q4H PRN HHN SOB/wheezing 07/28/18 21:07 08/01/18 21:06 Magnesium Hydroxide (Mom) 30 ml BIDPRN PRN NG Constipation 07/28/18 21:05 08/27/18 21:04 Meropenem 1 gm/ Sodium Chloride 100 ml @ 200 mls/hr Q8HR IVPB 08/01/18 22:00 08/06/18 05:59 Metoclopramide HCl (Reglan) 5 mg EVERY 8 HOURS GT 08/01/18 14:00 08/31/18 13:59 08/01/18 13:47 Nicotine (Nicoderm) 1 patch Q24H TDERMAL 07/29/18 18:00 08/08/18 17:59 08/01/18 17:30 Ondansetron HCl (Zofran) 4 mg Q6H PRN IVP Nausea & Vomiting 07/28/18 21:05 08/27/18 21:04 Pantoprazole (Protonix) 40 mg EVERY 12 HOURS IVP 07/29/18 09:00 08/28/18 08:59 08/01/18 09:18 Propranolol HCl (Inderal) 40 mg BID GT 07/29/18 09:00 08/27/18 11:59 08/01/18 17:29 Vancomycin HCl (Vanco rx to dose) 1 ea DAILY PRN MISC Per rx protocol 07/30/18 18:15 08/29/18 18:14 Vancomycin HCl/ Dextrose 275 ml @ 137.5 mls/ hr Q12HR IVPB 07/31/18 09:00 08/05/18 08:59 08/01/18 09:22 Trenton Ladd MD Aug 01, 2018 18:02
--- NOTE | 2018-08-01 19:41 | NUR ---
HAND-OFF: Report given to JAVIER Ziegler. Patient is in stable condition. Endorsed plan of care.
--- NOTE | 2018-08-01 19:45 | NUR ---
NURSE NOTES: patient received. patient in no acute distress at this time. patient complains of no pain at this time. patient awake alert and oriented x3. patient confused and tries to get up at times. bed alarm on. Gtube intact and running. dressing dry and intact. JUNE drain is draining. Binder on abdomen dry and intact. IV patient and asymptomatic. bed in lowest position and locked. call light within reach. will continue to monitor.
[2018-08-01 20:00] VITALS: BP 100/71
[2018-08-01] MEDS: Dyna-Hex 2% Top Sol 2oz TOPIC SCH (21:08)
--- NOTE | 2018-08-01 23:32 | Cardiology Progress Note ---
Assessment/Plan Assessment/Plan 1, Paroxysmal atrial fibrillation, continue propranolol, not a suitable candidate for anticoag therapy. 2. Moderate pulmonary HTN. 3. Anemia 4. Hypokalemia, keep the K >4.0. Subjective Subjective Sinus rhythm at rate of 74. Room air Objective Last 24 Hour Vital Signs Date Time Temp Pulse Resp B/P (MAP) Pulse Ox O2 Delivery O2 Flow Rate FiO2 08/01/18 21:35 Room Air 21 08/01/18 21:35 94 Room Air 21 08/01/18 21:35 74 18 Room Air 21 08/01/18 21:00 Room Air 08/01/18 20:00 98.6 78 17 100/71 (81) 94 08/01/18 20:00 76 08/01/18 17:29 84 117/79 08/01/18 16:00 84 08/01/18 15:51 97.7 18 117/79 (92) 97 08/01/18 12:00 79 08/01/18 09:18 80 116/81 08/01/18 09:06 98.8 80 20 116/81 (93) 95 08/01/18 09:00 Room Air 08/01/18 08:00 98.8 80 20 116/81 (93) 95 08/01/18 08:00 98 Room Air 21 08/01/18 08:00 92 08/01/18 08:00 Room Air 21 08/01/18 08:00 78 18 Room Air 21 08/01/18 04:00 98.0 79 18 115/82 (93) 93 08/01/18 04:00 79 08/01/18 00:00 97.4 78 17 113/92 (99) 96 08/01/18 00:00 78 Intake and Output 07/31/18 08/01/18 19:00 07:00 Intake Total 375.0 ml 650 ml Output Total 650 ml 705 ml Balance -275.0 ml -55 ml Free Water 300 ml IV Total 375.0 ml Tube Feeding 350 ml Output Urine Total 650 ml 700 ml Drainage Total 5 ml # Bowel Movements 1 2D Echo: LVEF 65%, Mild LVH, RVSP 50 mmHg, Mild MR/NY, Normal LVD Laboratory Tests Test 08/01/18 06:00 08/01/18 08:00 White Blood Count 11.3 K/UL (4.8-10.8) H Red Blood Count 3.11 M/UL (4.70-6.10) L Hemoglobin 10.4 G/DL (14.2-18.0) L Hematocrit 31.0 % (42.0-52.0) L Mean Corpuscular Volume 100 FL (80-99) H Mean Corpuscular Hemoglobin 33.5 PG (27.0-31.0) H Mean Corpuscular Hemoglobin Concent 33.7 G/DL (32.0-36.0) Red Cell Distribution Width 13.0 % (11.6-14.8) Platelet Count 421 K/UL (150-450) Mean Platelet Volume 6.6 FL (6.5-10.1) Neutrophils (%) (Auto) 75.9 % (45.0-75.0) H Lymphocytes (%) (Auto) 11.1 % (20.0-45.0) L Monocytes (%) (Auto) 5.2 % (1.0-10.0) Eosinophils (%) (Auto) 7.0 % (0.0-3.0) H Basophils (%) (Auto) 0.8 % (0.0-2.0) Sodium Level 149 MMOL/L (136-145) H Potassium Level 2.7 MMOL/L (3.5-5.1) *L Chloride Level 112 MMOL/L (98-107) H Carbon Dioxide Level 25 MMOL/L (21-32) Anion Gap 12 mmol/L (5-15) Blood Urea Nitrogen 12 mg/dL (7-18) Creatinine 0.6 MG/DL (0.55-1.30) Estimat Glomerular Filtration Rate > 60 mL/min (>60) Glucose Level 89 MG/DL (74-106) Calcium Level 6.8 MG/DL (8.5-10.1) #L Vancomycin Level Trough 16.9 ug/mL (5.0-12.0) H Microbiology Date/Time Source Procedure Growth Status 07/30/18 21:15 Blood Blood Culture - Preliminary NO GROWTH AFTER 24 HOURS Resulted 07/30/18 21:10 Blood Blood Culture - Preliminary NO GROWTH AFTER 24 HOURS Resulted 07/30/18 22:00 External Cath Urine Culture - Preliminary NO GROWTH Resulted Objective HEENT: normocephalic, atraumatic, anicteric, PERRL, dry mucous membrane Neck: no JVD, no carotid bruit. Respiratory/Chest: chest wall non-tender, lungs clear, normal breath sounds, no respiratory distress, no accessory muscle use Cardiovascular/Chest: Normal S1S2, no murmurs, gallops or rubs, rate,regular rhythm Abdomen: normal bowel sounds, soft, no organomegaly, no mass, other - mild epigastric ttp Extremities: normal range of motion, non-tender, normal inspection, no calf tenderness, normal capillary refill, non-pitting Skin Exam: normal pigmentation, warm/dry Neurologic: no motor/sensory deficits, alert, oriented x 3, responsive, normal mood/affect Luis Patel MD Aug 01, 2018 23:32
[2018-08-02] VITALS (9 sets, daily range): BP systolic 95–143; BP diastolic 65–92
--- NOTE | 2018-08-02 00:30 | NUR ---
HAND-OFF: Report given to nataliia jackson.
--- NOTE | 2018-08-02 00:31 | NUR ---
NURSE NOTES: Received report from Marleen Waters RN. Patient is sleeping in the bed in RA, no acute distress at this time. Safety measures are applied with bed alarm on, bed in lowest position with side rails up x2,a nd breaks are engaged. Gtube intact and Glucerna 1.5 is running at 60ml/h. Abdominal dressing is dry and intact and JUNE drain is draining. AVI PICC DL is patent and asymptomatic. Serrano cath is applied, patent and draining. Call light and side table are within reach. Will continue to follow plans of care.
[2018-08-02] MEDS: NovoLOG Insulin Flexpen SUBQ SCH ×4 (00:55→17:06)
--- NOTE | 2018-08-02 02:08 | NUR ---
NURSE NOTES: ST 137 BPM noted in the monitor. BP 107/74, afebrile. 3L NC was applied. Will continue to monitor. CN made aware. Addendum: 08/02/18 at 0213 by [place] AWAN RN Called and left message to Dr. Patel at . Awaiting call back. Addendum: 08/02/18 at 0429 by [place] AWAN RN Called and left message to Dr. Patel at 0245, at 0315, at 0415, no call back. Dr. Landry was contacted , was reported SVT 140, BP 106/84, asymptomatic and Doctor ordered Metoprolol 5mg IVP Once. CN made aware. Will carry the order.
[2018-08-02] MEDS ORDERED: Metoprolol 5mg/5ml Inj IVP SCH (04:45)
[2018-08-02] MEDS: Metoclopramide 10mg/10ml Liq GT SCH ×3 (05:32→22:11)
[2018-08-02 05:46] LABS: ANION GAP 7 mmol/L (5-15); BLOOD UREA NITROGEN 19 mg/dL (7-18); CALCIUM 9.3 MG/DL (8.5-10.1); CARBON DIOXIDE 28 MMOL/L (21-32); CHLORIDE 106 MMOL/L (98-107); POTASSIUM 4.3 MMOL/L (3.5-5.1); SODIUM 140 MMOL/L (136-145)
[2018-08-02 05:47] LABS: BASOPHILS % (AUTO) 0.9 % (0.0-2.0); EOSINOPHILS % (AUTO) 5.5 % (0.0-3.0); HEMATOCRIT 39.8 % (42.0-52.0); HEMOGLOBIN 13.7 G/DL (14.2-18.0); LYMPHOCYTES % (AUTO) 13.4 % (20.0-45.0); MEAN CORPUSCULAR VOLUME 99 FL (80-99); MONOCYTES % (AUTO) 4.5 % (1.0-10.0); NEUTROPHILS % (AUTO) 75.8 % (45.0-75.0); PLATELET COUNT 573 K/UL (150-450); RED BLOOD COUNT 4.03 M/UL (4.70-6.10); WHITE BLOOD COUNT 15.9 K/UL (4.8-10.8)
--- NOTE | 2018-08-02 07:30 | NUR ---
HAND-OFF: Report given to JAVIER Payne. Stable condition. Endorsed that SVT 140 was controlled after Metoprolol 5mg. It became ST 127 . Currently SR 97 in the monitor. Addendum: 08/02/18 at 0802 by [place] AWAN RN Endorsed that pt refused to have sputum inducement. Sputum has not been collected.
--- NOTE | 2018-08-02 07:45 | NUR ---
NURSE NOTES: Spoke to Dr. Patel about SVT rhythm at night and treatment plan. Order received and entered in computer.
--- NOTE | 2018-08-02 08:15 | NUR ---
NURSE NOTES: Patient received from JAVIER Ziegler. Patient in no acute distress at this time. Patient states concern in the abdomen. Exudate noted and notifed charge nurse of peg site. Patient awake alert and oriented x2. Bed alarm on. Gtube is intact and feeding on hold. JUNE drain is draining. Binder on abdomen dry and intact. IV site is patent, intact, and asymptomatic. Bed is in lowest position and locked. Call light within reach. will continue to monitor.
[2018-08-02] MEDS: Pantoprazole Inj IVP SCH ×2 (10:09→20:41)
[2018-08-02] MEDS: Propranolol 40mg tab GT SCH ×3 (10:09→19:52)
[2018-08-02] MEDS: Vancomycin 1.5gm/D5W 275ml IVPB SCH ×2 (10:10→20:41)
--- NOTE | 2018-08-02 10:19 | GI Progress Note ---
Assessment/Plan Problems: (1) Abnormal LFTs ICD Codes: R79.89 - Other specified abnormal findings of blood chemistry SNOMED: 390105971 (2) Cholecystitis, acute ICD Codes: K81.0 - Acute cholecystitis SNOMED: 08481290 (3) Hepatitis C ICD Codes: B19.20 - Unspecified viral hepatitis C without hepatic coma SNOMED: 32700369 (4) Fatty liver ICD Codes: K76.0 - Fatty (change of) liver, not elsewhere classified SNOMED: 394934537 (5) Alcoholic pancreatitis ICD Codes: K85.20 - Alcohol induced acute pancreatitis without necrosis or infection SNOMED: 523005672 (6) Pancreatitis, acute ICD Codes: K85.90 - Acute pancreatitis without necrosis or infection, unspecified SNOMED: 171524461 Status: stable Status Narrative Discussed with Dr. Yip Assessment/Plan SUMMARY OF FINDINGS: 1. 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 2. Status post ERCP with sphincterotomy, balloon assistance sludge and some pus extraction from the common bile duct and then stent placement. s/p open jocelyn, now in ICU with pancreatitis hepatitis C positive Pancreatitis s/p PEG Not tolerating G-tube feedings RECOMMENDATIONS: Continue G-tube feedings per RD to goal, add low-dose Reglan ATC Trend lipase fu labs The patient will need repeat ERCP in 6 to 8 weeks for stent removal. approximately September 24, 2018. outpatient Hep C tx dc planning The patient was seen and examined at bedside and all new and available data was reviewed in the patients chart. I agree with the above findings, impression and plan. (Patient seen earlier today. Signature stamp does not reflect patient encounter time.). - Toñito Yip MD Subjective Subjective limited, more awake and alert Objective Last 24 Hour Vital Signs Date Time Temp Pulse Resp B/P (MAP) Pulse Ox O2 Delivery O2 Flow Rate FiO2 08/02/18 10:09 92 136/92 08/02/18 08:00 97.0 92 16 136/92 (107) 96 08/02/18 05:00 127 08/02/18 04:50 141 106/84 08/02/18 04:00 98.5 141 18 106/84 (91) 96 08/02/18 03:26 136 08/02/18 02:07 98.2 136 18 107/74 (85) 96 08/02/18 00:00 98.2 77 18 95/65 (75) 96 08/02/18 00:00 131 08/01/18 23:24 131 08/01/18 21:35 Room Air 21 08/01/18 21:35 94 Room Air 21 08/01/18 21:35 74 18 Room Air 21 08/01/18 21:00 Room Air 08/01/18 20:00 98.6 78 17 100/71 (81) 94 08/01/18 20:00 76 08/01/18 17:29 84 117/79 08/01/18 16:00 84 08/01/18 15:51 97.7 18 117/79 (92) 97 08/01/18 12:00 79 Intake and Output 08/01/18 08/02/18 19:00 07:00 Intake Total 100 ml Output Total 600 ml Balance -500 ml IV Total 100 ml Output Urine Total 600 ml # Voids 2 # Bowel Movements 1 Laboratory Tests Test 08/02/18 04:30 White Blood Count 15.9 K/UL (4.8-10.8) H Red Blood Count 4.03 M/UL (4.70-6.10) L Hemoglobin 13.7 G/DL (14.2-18.0) #L Hematocrit 39.8 % (42.0-52.0) L Mean Corpuscular Volume 99 FL (80-99) Mean Corpuscular Hemoglobin 33.9 PG (27.0-31.0) H Mean Corpuscular Hemoglobin Concent 34.4 G/DL (32.0-36.0) Red Cell Distribution Width 13.0 % (11.6-14.8) Platelet Count 573 K/UL (150-450) H Mean Platelet Volume 6.8 FL (6.5-10.1) Neutrophils (%) (Auto) 75.8 % (45.0-75.0) H Lymphocytes (%) (Auto) 13.4 % (20.0-45.0) L Monocytes (%) (Auto) 4.5 % (1.0-10.0) Eosinophils (%) (Auto) 5.5 % (0.0-3.0) H Basophils (%) (Auto) 0.9 % (0.0-2.0) Sodium Level 140 MMOL/L (136-145) Potassium Level 4.3 MMOL/L (3.5-5.1) # Chloride Level 106 MMOL/L (98-107) Carbon Dioxide Level 28 MMOL/L (21-32) Anion Gap 7 mmol/L (5-15) Blood Urea Nitrogen 19 mg/dL (7-18) H Creatinine 1.0 MG/DL (0.55-1.30) # Estimat Glomerular Filtration Rate > 60 mL/min (>60) Glucose Level 112 MG/DL (74-106) H Calcium Level 9.3 MG/DL (8.5-10.1) # Height (Feet): 5 Height (Inches): 8.00 Weight (Pounds): 159 General Appearance: WD/WN, no apparent distress, alert Cardiovascular: normal rate Respiratory/Chest: normal breath sounds, no respiratory distress Abdominal Exam: normal bowel sounds, non tender, soft, GT site - Clean dry and intact Extremities: normal range of motion, non-tender Sonja Neely NP Aug 02, 2018 10:19
--- NOTE | 2018-08-02 11:32 | NUR ---
NURSE NOTES: Verify with charge nurse at 10am. Exudate was dried and dressing changed for peg site.
--- NOTE | 2018-08-02 13:34 | NUR ---
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 97.6 HR 141 RR 16 B/P 132/83 97% RA WBC 15.9 BUN 19 IS: MEROPENEM IV VANCO IV REGLAN PROTONIX PROPANOL GT TELE STATUS
--- NOTE | 2018-08-02 13:36 | NUR ---
RD ASSESSMENT & RECOMMENDATIONS SEE CARE ACTIVITY FOR COMPLETE ASSESSMENT DAILY ESTIMATED NEEDS: Needs based on Pancreatitis, 72.6kg 25-30 kcals/kg 9598-9738 total kcals 1-1.5 g protein/kg 73-109 g total protein 25-30 mL/kg 5126-7661 total fluid mLs NUTRITION DIAGNOSIS: * Altered nutrition-related lab values R/T liver dysfunction, pancreatitis, clinical condition as evidenced by elev LFTs, elev T bili, now wnl, Hep C antibody >11, elev lipase and amylase, low Na (130-> wnl), low K 3.3-> wnl. * Swallowing difficulty R/T dysphagia, respiratory status as evidenced by now extubated, failed VSS, s/p PEG placement, TPN is DC'd. CURRENT TF:Glucerna 1.5 @60ml ENTERAL NUTRITION RECOMMENDATIONS: Osmolite 1.2 @ 60ml/hr x 24 hrs to provide 1440ml, 1728kcal, 80g prot, 1181ml free water * W/ GI access and when medically appropriate to feed via GI, initiate TF. * Initiate Osmolite 1.2 @ 20ml/hr x 6 hrs * Advance 10ml q 4-6 hrs as tolerated to goal rate. * HOB over 30 degrees/ water flush per MD * @ goal provides 23% fat of total kcal -> W/ good tolerance and good glycemic control, rec increase to 65ml/hr to meet 100% est needs. --- If pt is to remain on Glucerna 1.5 rec to lower goal to 51ml/hr x24 hrs to provide: 1224ml, 1836 kcal, 101g prot, 929ml free H2O ADDITIONAL RECOMMENDATIONS: 1) Monitor lytes, LFTs, BGs daily w/ TF 2) Monitor residuals/ Rec above TF change 3) Calibrated bedscale wt for accurate CBW-> pt w/ added P200 4) Monitor lipase and LFTs 5) Monitor tolerance to Osmolite + need for iss 6) PT W/ EXTENDED ADM, REC UPDATED CALIBRATED BED SCALE WT . Addendum: 08/02/18 at 1440 by JORGITO HOLLOWAY, ELIEZER * Pt tolerating TF per RN- Rec to LOWER current TF of Glucerna 1.5 to goal of 51ml/hr as current rate exceeds est needs. TF to provide at goal: 1224ml, 1836 kcal, 101g prot, 929ml free H2O.
--- NOTE | 2018-08-02 15:04 | General Progress Note ---
Assessment/Plan Assessment/Plan #Sepsis #Acute purulent gangrenous cholecystitis. #klebsiella cholecystitis #acute Hypoxic respiratory failure #Acute Metabolic Encephalopathy - due to alcohol withdrawal and sepsis - meropenem, Diflucan - bcx x 2 ngtd - s/p ercp 07/12 - gen surg following s/p lap jocelyn converted to open jocelyn 07/12 - extubated on 07/16/18 - off o2 ncl - pulm following appreciated - pain control - appreciate surg recs - tpn -NG tube removed -s/p PEG -CT A/P pending today #Acute Blood Loss Anemia - due to recent surgery - no overt bleeding noted currently - hgb 6.8 07/15, transfused 2U, 9.7 (07/16) - stable #Pleural Effusions - b/l - per mrcp - stable - pulm consult appreciated #Alcohol Pancreatitis #Intractable abdominal pain #intractable nausea/vomiting #Transaminitis #Alcohol Hepatitis #Alcohol withdrawals #Fatty Liver Disease #Hepatitis C - LFTs 446/532 - Lipase 687 - due to alcohol abuse - INR 1.0 - discriminant function, 4.5 , no need for steroids - US abd completed and reviewed, showing fatty liver disease. GS present, no obstruction noted - ppi - PRN antiemetics, zofran prn - Per GI, will need ERCP in 6-8 weeks for stent removal #Failure to thrive - due to alcohol withdrawals and the above - alcoholic pancreatitis - fluids #Alcohol Abuse - educated on cessation for 15 mins - patient states he understands and will try to quit - RN notified to monitor carefully with withdrawals - prn ativan - ciwa #Uncontrolled HTN and tachycardia overnight -all oral BP meds held for now -continue metoprolol IV q6h -transferred to ICU, on amiodarone drip #Tobacco abuse - smokes 1ppd - educated on smoking cessation for over 15 mins, states he understands the risks of smoking and will try to quit #Dysphagia -seen by TECHNICAL TRAINER -strict NPO recommended at this time -Continue tube feeds via PEG #Hypernatremia - resoved -continue free water flushes via G-tube #Hypokalemia imprvoed continue to monitor BMP Subjective Date patient seen: Aug 02, 2018 Time patient seen: 12:45 ROS Limited/Unobtainable: Yes Cardiovascular: Reports: chest pain Respiratory: Reports: cough Gastrointestinal/Abdominal: Reports: abdomen distended, abdominal pain Allergies: Coded Allergies: No Known Allergies (Unverified , 06/01/16) Subjective Medicine follow up for multiple medical problems including acute gangrenous cholecystitis, acute hypoxic respiratory failure, acute encephalopathy No new issues overnight Objective Last 24 Hour Vital Signs Date Time Temp Pulse Resp B/P (MAP) Pulse Ox O2 Delivery O2 Flow Rate FiO2 08/02/18 13:08 97.6 99 16 132/83 (99) 95 08/02/18 12:00 97.6 99 16 132/83 (99) 95 08/02/18 12:00 92 08/02/18 10:09 92 136/92 08/02/18 09:00 Room Air 08/02/18 08:00 97.0 92 16 136/92 (107) 96 08/02/18 07:50 92 08/02/18 05:00 127 08/02/18 04:50 141 106/84 08/02/18 04:00 98.5 141 18 106/84 (91) 96 08/02/18 03:26 136 08/02/18 02:07 98.2 136 18 107/74 (85) 96 08/02/18 00:00 98.2 77 18 95/65 (75) 96 08/02/18 00:00 131 08/01/18 23:24 131 08/01/18 21:35 Room Air 21 08/01/18 21:35 94 Room Air 21 08/01/18 21:35 74 18 Room Air 21 08/01/18 21:00 Room Air 08/01/18 20:00 98.6 78 17 100/71 (81) 94 08/01/18 20:00 76 08/01/18 17:29 84 117/79 08/01/18 16:00 84 08/01/18 15:51 97.7 18 117/79 (92) 97 Intake and Output 08/01/18 08/02/18 18:59 06:59 Intake Total 100 ml Output Total 605 ml Balance -505 ml IV Total 100 ml Output Urine Total 600 ml Drainage Total 5 ml # Voids 2 # Bowel Movements 1 Laboratory Tests 08/02/18 04:30: White Blood Count 15.9H, Red Blood Count 4.03L, Hemoglobin 13.7#L, Hematocrit 39.8L, Mean Corpuscular Volume 99, Mean Corpuscular Hemoglobin 33.9H, Mean Corpuscular Hemoglobin Concent 34.4, Red Cell Distribution Width 13.0, Platelet Count 573H, Mean Platelet Volume 6.8, Neutrophils (%) (Auto) 75.8H, Lymphocytes (%) (Auto) 13.4L, Monocytes (%) (Auto) 4.5, Eosinophils (%) (Auto) 5.5H, Basophils (%) (Auto) 0.9, Sodium Level 140, Potassium Level 4.3#, Chloride Level 106, Carbon Dioxide Level 28, Anion Gap 7, Blood Urea Nitrogen 19H, Creatinine 1.0#, Estimat Glomerular Filtration Rate > 60, Glucose Level 112H, Calcium Level 9.3# Height (Feet): 5 Height (Inches): 8.00 Weight (Pounds): 159 General Appearance: alert Cardiovascular: normal rate, regular rhythm Respiratory/Chest: lungs clear, normal breath sounds Abdomen: non tender Tomás Cruz MD Aug 02, 2018 15:04
--- NOTE | 2018-08-02 15:53 | General Progress Note ---
Assessment/Plan Assessment/Plan Anemia of chronic disease due to underlying chronic medical issues, multifactorial, pancreatitis --> Anemia workup has been reviewed --> No evidence of hemolysis is noted, peripheral smear has been reviewed. --> Hgb goal >7. Transfuse prn. --> Epogen or iron at this time is not particularly indicated --> Medications have been reviewed # Thrombocytopenia is likely related to underlying reactive processs from pancreatitis, acute, as well as alcoholic intoxication and myelosuppression --> also patient has a history of hepatitis C from prior admission --> smear has been reviewed --> heparin sq is okay if needed for dvt ppx # Erythrocytosis is likely related to dehydration --> hgb goal >7, no evidence of bleeding currently --> given ivf already # Leukocytosis no e/o annie infection --> could be due to reactive process v cholecystitis --> wbc trend: 22-->18-->16-->14-->18-->19-->15 --> peripheral smear has been reviewed --> ercp repeat in 6-8 weeks, stent was placed # Pancreatitis with alcohol abuse --> recommend etoh cessation --> amylase and lipase prn --> Status post ERCP with sphincterotomy and stent placement # Transaminitis --> likely related to etoh abuse --> in past seen by gi # Alcohol abuse -- recommend cessation # PEG inserted left lower quadrant The timing of this note does not necessarily reflect the time of the patient was seen. Greatly appreciate consultation! Subjective Constitutional: Denies: no symptoms, chills, diaphoresis, fever, malaise, weakness, other HEENT: Denies: no symptoms, eye pain, blurred vision, tearing, double vision, ear pain, ear discharge, nose pain, nose congestion, throat pain, throat swelling, mouth pain, mouth swelling, other Respiratory: Denies: no symptoms, cough, orthopnea, shortness of breath, SOB with excertion, SOB at rest, sputum, stridor, wheezing, other Gastrointestinal/Abdominal: Denies: no symptoms, abdomen distended, abdominal pain, black stools, tarry stools, blood in stool, constipated, diarrhea, difficulty swallowing, nausea, poor appetite, poor fluid intake, rectal bleeding , vomiting, other Genitourinary: Denies: no symptoms, burning, discharge, frequency, flank pain, hematuria, incontinence, pain, urgency, other Neurologic/Psychiatric: Denies: no symptoms, anxiety, depressed, emotional problems, headache, numbness, paresthesia, pre-existing deficit, seizure, tingling, tremors, weakness, other Endocrine: Denies: no symptoms, excessive sweating, flushing, intolerance to cold, intolerance to heat, increased hunger, increased thirst, increased urine, unexplained weight gain, unexplained weight loss, other Hematologic/Lymphatic: Denies: no symptoms, anemia, easy bleeding, easy bruising, other Allergies: Coded Allergies: No Known Allergies (Unverified , 06/01/16) Subjective 07/05: bp was high today and dc was cancelled until tomorow, on librium 07/06: wbc was high though other counts are better, no f/c 07/10: seen by bedside, heart rate increased, appears agitated, wbc 13.9 07/11: to get ercp tomorrow, surgery and gi following 07/12 ercp, sphincterotomy, stent placement surgery done today, currently having tremors and tachy. wbc 15.9, hgb 14, plt 429 07/13: Pt is intubated, seen by bedside,wbc 22, on abx, no acute distress 07/14: awake and comfortable, still intubated on vent, labs noted hb trending down, wbc 18, hgb 8. 07/16: seen by bedside, awake, comfortable, wbc 14, hgb 9, plt 613 07/17: awake, comfortable, status post ERCP with sphincterotomy wbc 21, hgb 10, plt 689. 07/18; seen by bedside, awake comfortable, on venturi mask, wbc 23, plt 754. 07/19: seen by bedside, awake and comfortable, no events, wbc 21 07/20: now out of the icu, doing better, wbc improved, remains on abx as per ID 07/22: Pt is awake, comfortable, wbc 16, lt 632, on abx 07/23 Pt is awake, comfortable, wbc 15, plt 574, on abx, CXR revelals, Increasing opacities of the right lung and Slightly increasing right pleural effusion 07/24: ng has been removed, seen by other consultants, hgb has improved, no bleeding 07/25: seen by bedside, awake, comfortable, on nasal canula, failed video swallow test and has some PO meds, wbc trending down. 07/26: awake, comfortable, G-tube placement consent signed 07/27: a janell overnignt, in ICU , awake, alert, responsive, PEG inserted today, wbc 19. 07/30: resting in bed awake,alert disoriented on and off,Thoracentesis done, wbc trending up again, Chest x-ray reveals, Resolved right pleural effusion, post thoracentesis. No radiographically evident complication Persistent right mid and lower lung infiltrates. 07/31: seen by bedside, awake, confused, no signs of acute distress. 08/01: Pt is resting in bed, no acute events reported, 08/02: no acute distress at this time, wbc 15, CXR reveals, Improving but persistent right lung infiltrate. Objective Last 24 Hour Vital Signs Date Time Temp Pulse Resp B/P (MAP) Pulse Ox O2 Delivery O2 Flow Rate FiO2 08/02/18 13:08 97.6 99 16 132/83 (99) 95 08/02/18 12:00 97.6 99 16 132/83 (99) 95 08/02/18 12:00 92 08/02/18 10:09 92 136/92 08/02/18 09:00 Room Air 08/02/18 08:00 97.0 92 16 136/92 (107) 96 08/02/18 07:50 92 08/02/18 05:00 127 08/02/18 04:50 141 106/84 08/02/18 04:00 98.5 141 18 106/84 (91) 96 08/02/18 03:26 136 08/02/18 02:07 98.2 136 18 107/74 (85) 96 08/02/18 00:00 98.2 77 18 95/65 (75) 96 08/02/18 00:00 131 08/01/18 23:24 131 08/01/18 21:35 Room Air 21 08/01/18 21:35 94 Room Air 21 08/01/18 21:35 74 18 Room Air 21 08/01/18 21:00 Room Air 08/01/18 20:00 98.6 78 17 100/71 (81) 94 08/01/18 20:00 76 08/01/18 17:29 84 117/79 08/01/18 16:00 84 08/01/18 15:51 97.7 18 117/79 (92) 97 Intake and Output 08/01/18 08/02/18 19:00 07:00 Intake Total 100 ml Output Total 600 ml Balance -500 ml IV Total 100 ml Output Urine Total 600 ml # Voids 2 # Bowel Movements 1 Laboratory Tests 08/02/18 04:30: White Blood Count 15.9H, Red Blood Count 4.03L, Hemoglobin 13.7#L, Hematocrit 39.8L, Mean Corpuscular Volume 99, Mean Corpuscular Hemoglobin 33.9H, Mean Corpuscular Hemoglobin Concent 34.4, Red Cell Distribution Width 13.0, Platelet Count 573H, Mean Platelet Volume 6.8, Neutrophils (%) (Auto) 75.8H, Lymphocytes (%) (Auto) 13.4L, Monocytes (%) (Auto) 4.5, Eosinophils (%) (Auto) 5.5H, Basophils (%) (Auto) 0.9, Sodium Level 140, Potassium Level 4.3#, Chloride Level 106, Carbon Dioxide Level 28, Anion Gap 7, Blood Urea Nitrogen 19H, Creatinine 1.0#, Estimat Glomerular Filtration Rate > 60, Glucose Level 112H, Calcium Level 9.3# Height (Feet): 5 Height (Inches): 8.00 Weight (Pounds): 159 Objective Physical Exam General Appearance: A+O x3, NAD, ++ asterixis HEENT: normocephalic, atraumatic Neck: non-tender, normal alignment Respiratory/Chest: chest wall non-tender, lungs clear Cardiovascular/Chest: normal peripheral pulses, normal rate Abdomen: normal bowel sounds, non tender.++PEG Extremities: normal range of motion Guy Salazar MD Aug 02, 2018 15:53
--- NOTE | 2018-08-02 16:00 | NUR ---
@10:00-12:00- Feeding not hanged. Issue with pump and was fixed. 12:00-14:00- Glucerna running at 60ml/hr. Patient had one bowel movement. 14:00-15:00- Glucerna running at 51 ml/hr. Patient had another bowel movement. And then hold feeding. 15:10- contacted Keshawn HERRERA to change diet order per cost estimating engineer recommendation. 16:00 -Feeding changed to Osmolite 1.2 @ 20ml/hr.
--- NOTE | 2018-08-02 19:30 | NUR ---
NURSE NOTES: Received report from Chris Link RN. Pt is resting in the bed w/o distress in RA, 3L NC is ready to use, PRN. Pt is able to make needs known. Safety measures are applied w/ bed alarm on, bed in lowest position w/ side rails up x2, and breaks are engaged. P200 is applied. Serrano cath is applied and draining, patent. AVI PICC line DL are patent and asymptomatic. Call light and side table are w/in reach. SR in the monitor. Will follow plans of care. Addendum: 08/02/18 at 2250 by [place] AWAN RN GT feeding is running at 20cc/h, patent and residual noted.
--- NOTE | 2018-08-02 20:00 | NUR ---
HAND-OFF: Report given to JAVIER Ziegler.
--- NOTE | 2018-08-02 20:06 | Cardiology Progress Note ---
Assessment/Plan Assessment/Plan 1, Paroxysmal atrial fibrillation, increase propranolol to 40mg bid, not a suitable candidate for anticoag therapy due to chronic liver disease. 2. Moderate pulmonary HTN. 3. Anemia 4. Hypokalemia, resolved. Subjective Subjective Sinus rhythm at rate of 88. Room air Objective Last 24 Hour Vital Signs Date Time Temp Pulse Resp B/P (MAP) Pulse Ox O2 Delivery O2 Flow Rate FiO2 08/02/18 19:52 88 143/82 08/02/18 16:00 98.1 88 16 143/82 (102) 96 08/02/18 13:08 97.6 99 16 132/83 (99) 95 08/02/18 12:00 97.6 99 16 132/83 (99) 95 08/02/18 12:00 92 08/02/18 10:09 92 136/92 08/02/18 09:00 Room Air 08/02/18 08:00 97.0 92 16 136/92 (107) 96 08/02/18 07:50 92 08/02/18 05:00 127 08/02/18 04:50 141 106/84 08/02/18 04:00 98.5 141 18 106/84 (91) 96 08/02/18 03:26 136 08/02/18 02:07 98.2 136 18 107/74 (85) 96 08/02/18 00:00 98.2 77 18 95/65 (75) 96 08/02/18 00:00 131 08/01/18 23:24 131 08/01/18 21:35 Room Air 21 08/01/18 21:35 94 Room Air 21 08/01/18 21:35 74 18 Room Air 21 08/01/18 21:00 Room Air Intake and Output 08/01/18 08/02/18 19:00 07:00 Intake Total 100 ml Output Total 600 ml Balance -500 ml IV Total 100 ml Output Urine Total 600 ml # Voids 2 # Bowel Movements 1 2D Echo: LVEF 65%, Mild LVH, RVSP 50 mmHg, Mild MR/MO, Normal LVD Laboratory Tests Test 08/02/18 04:30 08/02/18 19:50 White Blood Count 15.9 K/UL (4.8-10.8) H Red Blood Count 4.03 M/UL (4.70-6.10) L Hemoglobin 13.7 G/DL (14.2-18.0) #L Hematocrit 39.8 % (42.0-52.0) L Mean Corpuscular Volume 99 FL (80-99) Mean Corpuscular Hemoglobin 33.9 PG (27.0-31.0) H Mean Corpuscular Hemoglobin Concent 34.4 G/DL (32.0-36.0) Red Cell Distribution Width 13.0 % (11.6-14.8) Platelet Count 573 K/UL (150-450) H Mean Platelet Volume 6.8 FL (6.5-10.1) Neutrophils (%) (Auto) 75.8 % (45.0-75.0) H Lymphocytes (%) (Auto) 13.4 % (20.0-45.0) L Monocytes (%) (Auto) 4.5 % (1.0-10.0) Eosinophils (%) (Auto) 5.5 % (0.0-3.0) H Basophils (%) (Auto) 0.9 % (0.0-2.0) Sodium Level 140 MMOL/L (136-145) Potassium Level 4.3 MMOL/L (3.5-5.1) # Chloride Level 106 MMOL/L (98-107) Carbon Dioxide Level 28 MMOL/L (21-32) Anion Gap 7 mmol/L (5-15) Blood Urea Nitrogen 19 mg/dL (7-18) H Creatinine 1.0 MG/DL (0.55-1.30) # Estimat Glomerular Filtration Rate > 60 mL/min (>60) Glucose Level 112 MG/DL (74-106) H Calcium Level 9.3 MG/DL (8.5-10.1) # Vancomycin Level Trough Pending Microbiology Date/Time Source Procedure Growth Status 07/30/18 21:15 Blood Blood Culture - Preliminary NO GROWTH AFTER 48 HOURS Resulted 07/30/18 21:10 Blood Blood Culture - Preliminary NO GROWTH AFTER 48 HOURS Resulted 07/30/18 22:00 External Cath Urine Culture - Final NO GROWTH AFTER 48 HOURS Complete Objective HEENT: normocephalic, atraumatic, anicteric, PERRL, dry mucous membrane Neck: no JVD, no carotid bruit. Respiratory/Chest: chest wall non-tender, lungs clear, normal breath sounds, no respiratory distress, no accessory muscle use Cardiovascular/Chest: Normal S1S2, no murmurs, gallops or rubs, rate,regular rhythm Abdomen: normal bowel sounds, soft, no organomegaly, no mass, other - mild epigastric ttp Extremities: normal range of motion, non-tender, normal inspection, no calf tenderness, normal capillary refill, non-pitting Skin Exam: normal pigmentation, warm/dry Neurologic: no motor/sensory deficits, alert, oriented x 3, responsive, normal mood/affect Luis Patel MD Aug 02, 2018 20:06
--- NOTE | 2018-08-02 20:40 | NUR ---
NURSE NOTES: At 18:25, spoke with patient about not getting out of bed. Bed alarm in place. Explained about melchor, tubing, and devices. At 18:35, patient was found be charge nurse, sitting on floor. Patient was assisted back to bed. Patient denies falling from bed and stating he wanted to sit on the floor. Charge nurse, Marni aware. Nursing retail field supervisor Virginia is aware. Left message for Dr. Wyatt on voicemail about event. Called physician assistance [facility]. PA states he will contact Dr. Wyatt. Endorse to shift supervisor melting nurse.
[2018-08-02] MEDS: Dyna-Hex 2% Top Sol 2oz TOPIC SCH (20:41)
--- NOTE | 2018-08-02 21:39 | Pulmonology Progress Note ---
Assessment/Plan Problems: (1) Cholecystitis, acute (2) Alcoholic pancreatitis (3) Pancreatitis, acute (4) Alcohol abuse (5) Abnormal LFTs (6) Gangrenous cholecystitis (7) Respiratory disorder with ventilator dependence Assessment & Plan: Extubated and TTF (8) Blood loss anemia (9) Pneumonia (10) Hepatitis C (11) Fatty liver Assessment/Plan ? pleural fluid studies, ? still pending Optimize pulmonary hygiene/mobilize as tolerated PRN O2 PRN ATROVENT HHN's Abx (Jair) per ID, F/U Cx's and monitor WCt GTF's GI & surgery recs Montor volumes and renal function DVT Px: Hep SQ FC Subjective Allergies: Coded Allergies: No Known Allergies (Unverified , 06/01/16) Subjective Seen earlier AFVSS on RA WCt 16 Carlos TFs, denies cough/congestion/SOB/wheezing, no FC Objective Last 24 Hour Vital Signs Date Time Temp Pulse Resp B/P (MAP) Pulse Ox O2 Delivery O2 Flow Rate FiO2 08/02/18 19:52 88 143/82 08/02/18 18:40 98.2 96 Room Air 08/02/18 16:00 98.1 88 16 143/82 (102) 96 08/02/18 15:35 85 08/02/18 13:08 97.6 99 16 132/83 (99) 95 08/02/18 12:00 97.6 99 16 132/83 (99) 95 08/02/18 12:00 92 08/02/18 10:09 92 136/92 08/02/18 09:00 Room Air 08/02/18 08:00 97.0 92 16 136/92 (107) 96 08/02/18 07:50 92 08/02/18 05:00 127 08/02/18 04:50 141 106/84 08/02/18 04:00 98.5 141 18 106/84 (91) 96 08/02/18 03:26 136 08/02/18 02:07 98.2 136 18 107/74 (85) 96 08/02/18 00:00 98.2 77 18 95/65 (75) 96 08/02/18 00:00 131 08/01/18 23:24 131 Intake and Output 08/01/18 08/02/18 19:00 07:00 Intake Total 100 ml Output Total 600 ml Balance -500 ml IV Total 100 ml Output Urine Total 600 ml # Voids 2 # Bowel Movements 1 General Appearance: WD/WN, no acute distress HEENT: normocephalic, atraumatic, anicteric, mucous membranes moist Respiratory/Chest: chest wall non-tender, lungs clear, normal breath sounds, no respiratory distress, no accessory muscle use Cardiovascular: normal peripheral pulses, normal rate, regular rhythm Abdomen: normal bowel sounds, soft, non tender, no organomegaly, non distended , other - GT, dressed Extremities: no cyanosis, no clubbing, no edema Microbiology Date/Time Source Procedure Growth Status 07/30/18 22:00 External Cath Urine Culture - Final NO GROWTH AFTER 48 HOURS Complete Laboratory Tests 08/02/18 04:30: White Blood Count 15.9H, Red Blood Count 4.03L, Hemoglobin 13.7#L, Hematocrit 39.8L, Mean Corpuscular Volume 99, Mean Corpuscular Hemoglobin 33.9H, Mean Corpuscular Hemoglobin Concent 34.4, Red Cell Distribution Width 13.0, Platelet Count 573H, Mean Platelet Volume 6.8, Neutrophils (%) (Auto) 75.8H, Lymphocytes (%) (Auto) 13.4L, Monocytes (%) (Auto) 4.5, Eosinophils (%) (Auto) 5.5H, Basophils (%) (Auto) 0.9, Sodium Level 140, Potassium Level 4.3#, Chloride Level 106, Carbon Dioxide Level 28, Anion Gap 7, Blood Urea Nitrogen 19H, Creatinine 1.0#, Estimat Glomerular Filtration Rate > 60, Glucose Level 112H, Calcium Level 9.3# 08/02/18 19:50: Vancomycin Level Trough 31.8H Current Medications Medications (Trade) Dose Ordered Sig/[place] Route PRN Reason Start Time Stop Time Status Last Admin Dose Admin Acetaminophen (Tylenol) 650 mg Q4H PRN RECTAL Prn for Temp >100.5 07/28/18 21:05 08/14/18 21:04 Al Hydroxide/Mg Hydroxide (Mylanta) 15 ml Q6H PRN NG DYSPEPSIA 07/28/18 21:05 08/27/18 21:04 Chlorhexidine Gluconate (Estrella-Hex 2%) 1 applic DAILY@1999 TOPIC 07/29/18 20:00 08/15/18 19:59 08/02/18 20:41 Dextrose (Dextrose 50%) 25 ml Q30M PRN IV Hypoglycemia 07/28/18 21:05 08/17/18 21:04 Dextrose (Dextrose 50%) 50 ml Q30M PRN IV hypoglycemia 07/28/18 21:05 08/17/18 21:04 Diphenhydramine HCl (Benadryl) 12.5 mg Q6H PRN IVP Itching/Pruritis 07/28/18 21:05 08/27/18 21:04 Insulin Aspart (NovoLOG) No Dose Q6HR SUBQ 07/29/18 00:00 08/17/18 12:59 08/02/18 05:16 Magnesium Hydroxide (Mom) 30 ml BIDPRN PRN NG Constipation 07/28/18 21:05 08/27/18 21:04 Meropenem 1 gm/ Sodium Chloride 100 ml @ 200 mls/hr Q8HR IVPB 08/01/18 22:00 08/06/18 05:59 08/02/18 14:02 Metoclopramide HCl (Reglan) 5 mg EVERY 8 HOURS GT 08/01/18 14:00 08/31/18 13:59 08/02/18 14:01 Nicotine (Nicoderm) 1 patch Q24H TDERMAL 07/29/18 18:00 08/08/18 17:59 08/01/18 17:30 Ondansetron HCl (Zofran) 4 mg Q6H PRN IVP Nausea & Vomiting 07/28/18 21:05 08/27/18 21:04 Pantoprazole (Protonix) 40 mg EVERY 12 HOURS IVP 07/29/18 09:00 08/28/18 08:59 08/02/18 20:41 Propranolol HCl (Inderal) 80 mg BID GT 08/02/18 09:00 08/27/18 11:59 08/02/18 19:52 Vancomycin HCl (Vanco rx to dose) 1 ea DAILY PRN MISC Per rx protocol 07/30/18 18:15 08/29/18 18:14 Trenton Ladd MD Aug 02, 2018 21:39
--- NOTE | 2018-08-02 22:58 | NUR ---
NURSE NOTES: Dr. Ladd called and ordered Neuro check Q2HR. called and placed order of CT Head stat. Order carried out. Pt was taken to radio dept. and was brought by [employer]. No incident. Currently, Pt is sleeping in the bed w/o distress. Will continue to monitor.
[2018-08-03] VITALS: BP 116/76
--- NOTE | 2018-08-03 01:13 | NUR ---
NURSE NOTES: Pt is sleeping w/o distress. GT feeding is running at 25ml/h, no residual. Will continue to monitor.
[2018-08-03 04:00] VITALS: BP 106/71
[2018-08-03 05:25] LABS: BASOPHILS % (AUTO) 0.7 % (0.0-2.0); EOSINOPHILS % (AUTO) 4.7 % (0.0-3.0); HEMATOCRIT 36.1 % (42.0-52.0); HEMOGLOBIN 12.5 G/DL (14.2-18.0); LYMPHOCYTES % (AUTO) 10.8 % (20.0-45.0); MEAN CORPUSCULAR VOLUME 99 FL (80-99); MONOCYTES % (AUTO) 5.3 % (1.0-10.0); NEUTROPHILS % (AUTO) 78.6 % (45.0-75.0); PLATELET COUNT 440 K/UL (150-450); RED BLOOD COUNT 3.66 M/UL (4.70-6.10)
[2018-08-03] MEDS: NovoLOG Insulin Flexpen SUBQ SCH ×4 (05:28→20:27)
[2018-08-03] MEDS: Metoclopramide 10mg/10ml Liq GT SCH ×3 (05:28→23:02)
[2018-08-03 05:41] LABS: ANION GAP 8 mmol/L (5-15); BLOOD UREA NITROGEN 17 mg/dL (7-18); CALCIUM 8.9 MG/DL (8.5-10.1); CARBON DIOXIDE 27 MMOL/L (21-32); CHLORIDE 106 MMOL/L (98-107); CREATININE 1.4 MG/DL (0.55-1.30); POTASSIUM 3.7 MMOL/L (3.5-5.1); SODIUM 141 MMOL/L (136-145)
--- NOTE | 2018-08-03 07:20 | NUR ---
HAND-OFF: Report given to Chris Link RN. Endorsed that pt had abdominal pain and pain med was given. GT feeding is on hold d/t abdominal pain. CN made aware. Endorsed that CT scan result is pending. Endorsed that vanco trough 31.8.
--- NOTE | 2018-08-03 07:22 | NUR ---
NURSE NOTES: Received report from Khalif Ziegler RN. Pt is resting in the bed w/o distress in RA, 3L NC is ready to use, PRN. Pt is able to make needs known. He is AAO x2. Safety measures are applied w/ bed alarm on, bed in lowest position w/ side rails up x2, and breaks are engaged. P200 is applied. Serrano cath is applied and draining, patent with yellow urine. AVI PICC line DL are patent and asymptomatic. Call light and side table are w/in reach. SR in the monitor. Will follow plans of care. Osmolite 1.2 feeding is put on hold. Patient states abdominal pain of 8/10 and was previous medicated (see emr). Will resume in one hour.
[2018-08-03 08:00] VITALS: BP 107/72
[2018-08-03] MEDS: Heparin 5000 units/ml inj SUBQ SCH ×2 (09:00→21:09)
--- NOTE | 2018-08-03 09:37 | Diagnostic Imaging Report ---
Indications: Pain, unwitnessed fall Technique: Spiral acquisitions obtained through the brain. Angled axial and coronal 5 x 5 mm slices were reconstructed. Total dose length product 1354.47 mGycm. CTDI vol(s) 70.38 mGy. Dose reduction achieved using automated exposure control Comparison: 07/18/2018 Findings: There is age-related enlargement of the ventricles and extra-axial CSF spaces again demonstrated. There is periventricular deep white matter low-attenuation, consistent with chronic ischemic change. Encephalomalacia in the right inferior frontal lobe is again noted. Normal ahn-white differentiation. No acute intracranial hemorrhage nor edema, mass effect, nor midline shift. The calvarium is intact. Visualized orbits and sinuses are unremarkable.. 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
--- NOTE | 2018-08-03 09:45 | General Progress Note ---
Assessment/Plan Problem List: (1) Cholecystitis, acute ICD Codes: K81.0 - Acute cholecystitis SNOMED: 20889426 (2) Abnormal LFTs ICD Codes: R79.89 - Other specified abnormal findings of blood chemistry SNOMED: 049517979 (3) Fatty liver ICD Codes: K76.0 - Fatty (change of) liver, not elsewhere classified SNOMED: 238224400 (4) PEG (percutaneous endoscopic gastrostomy) status ICD Codes: Z93.1 - Gastrostomy status SNOMED: 701921925, 176604925 (5) S/P cholecystectomy ICD Codes: Z90.49 - Acquired absence of other specified parts of digestive tract SNOMED: 83488988, 02011300, 272247502 (6) Paroxysmal atrial fibrillation with rapid ventricular response ICD Codes: I48.0 - Paroxysmal atrial fibrillation SNOMED: 375924879, 419237917126526 (7) Pneumonia ICD Codes: J18.9 - Pneumonia, unspecified organism SNOMED: 825005203 (8) Hepatitis C ICD Codes: B19.20 - Unspecified viral hepatitis C without hepatic coma SNOMED: 76834922 Assessment/Plan CT reviewed continue GTF repeat labs in am including amylase and lipase will need ERCP and stent removal in 8 weeks Subjective Allergies: Coded Allergies: No Known Allergies (Unverified , 06/01/16) Subjective abd pain Objective Last 24 Hour Vital Signs Date Time Temp Pulse Resp B/P (MAP) Pulse Ox O2 Delivery O2 Flow Rate FiO2 08/03/18 08:00 95 Room Air 21 08/03/18 08:00 97.7 139 18 107/72 (84) 92 08/03/18 08:00 Room Air 21 08/03/18 07:55 137 08/03/18 04:00 98.7 84 18 106/71 (83) 92 08/03/18 03:49 82 08/03/18 01:08 78 08/03/18 00:00 98.9 80 18 116/76 (89) 93 08/02/18 21:00 Room Air 08/02/18 20:00 97.3 79 20 114/70 (85) 96 08/02/18 19:52 88 143/82 08/02/18 19:02 89 08/02/18 18:40 98.2 96 Room Air 08/02/18 16:00 98.1 88 16 143/82 (102) 96 08/02/18 15:35 85 08/02/18 13:08 97.6 99 16 132/83 (99) 95 08/02/18 12:00 97.6 99 16 132/83 (99) 95 08/02/18 12:00 92 08/02/18 10:09 92 136/92 Intake and Output 08/02/18 08/03/18 19:00 07:00 Intake Total 375.0 ml Output Total 300 ml 810 ml Balance -300 ml -435.0 ml IV Total 375.0 ml Output Urine Total 300 ml 800 ml Drainage Total 10 ml # Voids 1 # Bowel Movements 1 Laboratory Tests 08/02/18 19:50: Vancomycin Level Trough 31.8H 08/03/18 04:30: White Blood Count 15.0H, Red Blood Count 3.66L, Hemoglobin 12.5L, Hematocrit 36.1L, Mean Corpuscular Volume 99, Mean Corpuscular Hemoglobin 34.1H, Mean Corpuscular Hemoglobin Concent 34.5, Red Cell Distribution Width 13.0, Platelet Count 440, Mean Platelet Volume 7.1, Neutrophils (%) (Auto) 78.6H, Lymphocytes ( %) (Auto) 10.8L, Monocytes (%) (Auto) 5.3, Eosinophils (%) (Auto) 4.7H, Basophils (%) (Auto) 0.7, Sodium Level 141, Potassium Level 3.7, Chloride Level 106, Carbon Dioxide Level 27, Anion Gap 8, Blood Urea Nitrogen 17, Creatinine 1.4H, Estimat Glomerular Filtration Rate 51.2, Glucose Level 104, Calcium Level 8.9 Height (Feet): 5 Height (Inches): 8.00 Weight (Pounds): 159 General Appearance: alert EENT: normal ENT inspection Neck: supple Cardiovascular: normal rate Respiratory/Chest: decreased breath sounds Abdomen: soft, hypoactive bowel sounds, tender Extremities: non-tender Toñito Yip MD Aug 03, 2018 09:45
[2018-08-03] MEDS: Propranolol 40mg tab GT SCH ×2 (09:58→20:26)
[2018-08-03] MEDS: Pantoprazole Inj IVP SCH ×2 (09:59→21:08)
--- NOTE | 2018-08-03 11:37 | General Progress Note ---
Progress Note Progress Note Surgery: doing much better. recovering. needs more walking no n/v/f/c. tolerating feeds. mentating well. labs noted CT noted. no further surgical intervention necessary cont with packing and dressings to RUQ wound until completely healed repeat swallow eval rehab okay to d/c planning Sal[place] Antonio Aug 03, 2018 11:36
[2018-08-03 12:00] VITALS: BP 93/63
--- NOTE | 2018-08-03 12:00 | NUR ---
NURSE NOTES: Spoke with Dr. Ann. about CT head results. States to continue heparin for tonight.
--- NOTE | 2018-08-03 13:52 | General Progress Note ---
Assessment/Plan Assessment/Plan #Sepsis #Acute purulent gangrenous cholecystitis. #klebsiella cholecystitis #acute Hypoxic respiratory failure #Acute Metabolic Encephalopathy - due to alcohol withdrawal and sepsis - meropenem, Diflucan - bcx x 2 ngtd - s/p ercp 07/12 - gen surg following s/p lap jocelyn converted to open jocelyn 07/12 - extubated on 07/16/18 - off o2 ncl - pulm following appreciated - pain control - appreciate surg recs - tpn -NG tube removed -s/p PEG -CT A/P pending today #Acute Blood Loss Anemia - due to recent surgery - no overt bleeding noted currently - hgb 6.8 07/15, transfused 2U, 9.7 (07/16) - stable #Pleural Effusions - b/l - per mrcp - stable - pulm consult appreciated #Alcohol Pancreatitis #Intractable abdominal pain #intractable nausea/vomiting #Transaminitis #Alcohol Hepatitis #Alcohol withdrawals #Fatty Liver Disease #Hepatitis C - LFTs 446/532 - Lipase 687 - due to alcohol abuse - INR 1.0 - discriminant function, 4.5 , no need for steroids - US abd completed and reviewed, showing fatty liver disease. GS present, no obstruction noted - ppi - PRN antiemetics, zofran prn - Per GI, will need ERCP in 6-8 weeks for stent removal #Failure to thrive - due to alcohol withdrawals and the above - alcoholic pancreatitis - fluids #Alcohol Abuse - educated on cessation for 15 mins - patient states he understands and will try to quit - RN notified to monitor carefully with withdrawals - prn ativan - ciwa #Uncontrolled HTN and tachycardia overnight -all oral BP meds held for now -continue metoprolol IV q6h -transferred to ICU, on amiodarone drip #Tobacco abuse - smokes 1ppd - educated on smoking cessation for over 15 mins, states he understands the risks of smoking and will try to quit #Dysphagia -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-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 -Continue tube feeds via PEG #Hypernatremia - resoved -continue free water flushes via G-tube #Hypokalemia improved continue to monitor BMP Subjective Date patient seen: Aug 03, 2018 Time patient seen: 11:00 Cardiovascular: Denies: chest pain Respiratory: Denies: cough Gastrointestinal/Abdominal: Denies: abdominal pain Allergies: Coded Allergies: No Known Allergies (Unverified , 06/01/16) Subjective Medicine follow up for multiple medical problems including acute gangrenous cholecystitis, acute hypoxic respiratory failure, acute encephalopathy Was found sitting on the floor by nursing yesterday afternoon. No evidence of fall or trauma. CT head negative Objective Last 24 Hour Vital Signs Date Time Temp Pulse Resp B/P (MAP) Pulse Ox O2 Delivery O2 Flow Rate FiO2 08/03/18 12:00 97.7 129 20 93/63 (73) 92 08/03/18 09:58 139 107/72 08/03/18 09:00 Room Air 08/03/18 08:00 95 Room Air 21 08/03/18 08:00 97.7 139 18 107/72 (84) 92 08/03/18 08:00 Room Air 21 08/03/18 07:55 137 08/03/18 04:00 98.7 84 18 106/71 (83) 92 08/03/18 03:49 82 08/03/18 01:08 78 08/03/18 00:00 98.9 80 18 116/76 (89) 93 08/02/18 21:00 Room Air 08/02/18 20:00 97.3 79 20 114/70 (85) 96 08/02/18 19:52 88 143/82 08/02/18 19:02 89 08/02/18 18:40 98.2 98 18 142/92 (109) 94 08/02/18 18:40 98.2 96 Room Air 08/02/18 16:00 98.1 88 16 143/82 (102) 96 08/02/18 15:35 85 Intake and Output 08/02/18 08/03/18 19:00 07:00 Intake Total 375.0 ml Output Total 300 ml 810 ml Balance -300 ml -435.0 ml IV Total 375.0 ml Output Urine Total 300 ml 800 ml Drainage Total 10 ml # Voids 1 # Bowel Movements 1 Laboratory Tests 08/02/18 19:50: Vancomycin Level Trough 31.8H 08/03/18 04:30: White Blood Count 15.0H, Red Blood Count 3.66L, Hemoglobin 12.5L, Hematocrit 36.1L, Mean Corpuscular Volume 99, Mean Corpuscular Hemoglobin 34.1H, Mean Corpuscular Hemoglobin Concent 34.5, Red Cell Distribution Width 13.0, Platelet Count 440, Mean Platelet Volume 7.1, Neutrophils (%) (Auto) 78.6H, Lymphocytes ( %) (Auto) 10.8L, Monocytes (%) (Auto) 5.3, Eosinophils (%) (Auto) 4.7H, Basophils (%) (Auto) 0.7, Sodium Level 141, Potassium Level 3.7, Chloride Level 106, Carbon Dioxide Level 27, Anion Gap 8, Blood Urea Nitrogen 17, Creatinine 1.4H, Estimat Glomerular Filtration Rate 51.2, Glucose Level 104, Calcium Level 8.9 Height (Feet): 5 Height (Inches): 8.00 Weight (Pounds): 159 General Appearance: alert Neck: normal alignment, supple Cardiovascular: normal rate, regular rhythm Respiratory/Chest: lungs clear, normal breath sounds, no respiratory distress Tomás Cruz MD Aug 03, 2018 13:52
--- NOTE | 2018-08-03 14:29 | NUR ---
PT notes: attempted to see patient today; patient declined treatment stating that he had lots of things going on today; per nursing, patient's fell down last night; will follow up next treatment schedule.
[2018-08-03] MEDS ORDERED: Digoxin 0.5mg/2ml Inj IVP SCH (14:30)
[2018-08-03] MEDS ORDERED: Haloperidol 5mg/ml Inj IM PRN (14:30)
--- NOTE | 2018-08-03 14:44 | NUR ---
ST NOTE: REPEAT BEDSIDE SWALLOW EVAL RECEIVED REPEAT BEDSIDE SWALLOW EVAL ORDER CHART REVIEWED PRIOR THE EVALUATION. PT IS A 62-YEAR-OLD MALE WHO WAS ADMITTED DUE TO ALCOHOLIC PANCREATITIS. DYSPHAGIA RISK FACTORS: ETOH, GERD, SMOKING(1PK/DAY). DURING THE HOSPITALIZATION, PT UNDERWENT SURGERY( S/P OPEN ARACELIS, GANGRENOUS PURULENT CHOLECYSTITIS) AND INTUBATED FOR 4 DAYS FROM 07/12/18-07/16/18. PT AUDIBLY AND SILENTLY ASPIRATED ON THIN LIQUIDS ON VIDEOSWALLOW STUDY ON 07/25/18. PT RECEIVED LONG-TERM NONORAL FEEDING MEANS. PER CXR: Suspected mild interstitial edema and a small right pleural effusion. PER CXR: 08/01/18: Improving but persistent right lung infiltrate, over 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 No acute findings.Moderate atrophy of the brain. PER VIDEOSWALLOW STUDY ON 07/25/18 PT PRESENTS WITH SIGNIFICANT(SEVERE) OROPHARYNGEAL DYSPHAGIA CHARACTERIZED BY INCREASED ORAL TRANSIT TIME AND OROPHARYNGEAL TRANSIT TIME DUE TO SENSORIMOTOR DEFICITS. TRACE TO SIGNIFICANT SILENT AND AUDIBLE ASPIRATION(ENTERED THE AIRWAY, BELOW THE VOCAL FOLDS, NOT EJECTED DESPITE EFFORT OR NO EFFORT) WITH THIN DUE TO DELAYED SWALLOW, REDUCED HYO-LARYNGEAL ELEVATION/EXCURSION AND REDUCED LARYNGEAL VESTIBULE CLOSURE. NO FURTHER PO WAS GIVEN DUE TO PT IS AT HIGH RISK FOR OTHER CONSISTENCIES, DEEP OROPHARYNGEAL SUCTION WAS PERFORMED AT THE END OF THE VIDEOSWALLOW. ATTEMPTED HEAD TURN TO L AND CHIN DOWN, NO SIGNIFICANT DIFFERENCES WAS NOTED TO REDUCED ASPIRATION RISK. PT IS NOT SAFE FOR PO INTAKE AT THIS TIME. SUSPECTED UNUSUAL FILLING WAS NOTED IN THE LOWER PART OF PHARYNX(AROUND C5 TO C6). CONSULTED RADIOLOGIST, DR. GAONA, TO CONFIRM. PLEASE SEE FULL REPORT FROM RADIOLOGIST. PLOF: PT RESIDES AT HOME WITH FAMILY. CURRENT STATUS: PT SEEN AT BEDSIDE IN LATE AM. ALERT, COOPERATIVE, VERBAL, ORIENTED X 3 TO 4, PT EXPRESSED THE WANT TO EAT/DRINK BY MOUTH. PT'S SPOUSE IS AT BEDSIDE. GIVEN PO TRIALS:ICE-CHIPS(TSP), THIN LIQUID(CUP), NECTAR THICK(TSP) AND PUREE(TSP) INITIAL IMPRESSION: PROBABLE MILD TO MODERATE OR WORSENED OROPHARYNGEAL DYSPHAGIA SLOW AND MILD DELAYED ORAL TRANSIT TIME AND OROPHARYNGEAL TRANSIT TIME, FAIR LARYNGEAL ELEVATION, NO OVERT S/S OF ASPIRATION. STILL HAS RISK FOR SILENT ASPIRATION DUE TO PT STILL HAS persistent right lung infiltrate. RECOMMENDATIONS: 1. CONTINUE LONG-TERM NONORAL FEEDING MEANS TO MEET NUTRITION AND HYDRATION NEEDS. 2. FOR QUALITY OF LIFE, OKAY TO HAVE SMALL AMOUNT OF ICE-CHIPS. 3. REPEAT VIDEOSWALLOW STUDY D/W PT, PT'S , AND RN, VERN. POSTED NPO SIGN.
[2018-08-03] MEDS ORDERED: Tubing IV Secondary IV ONE (15:18)
[2018-08-03] MEDS ORDERED: NS 275ml ONE ×2 (15:18)
[2018-08-03 16:00] VITALS: BP 103/69
[2018-08-03] MEDS ORDERED: Metoprolol 5mg/5ml Inj IVP SCH (17:50)
--- NOTE | 2018-08-03 17:57 | Cardiology Progress Note ---
Assessment/Plan Assessment/Plan 1, Paroxysmal SVT, 12 lead ECG stat, metoprolol 5mg IV times one dose, continue propranolol to 40mg bid, 2. Moderate pulmonary HTN. 3. PAF, not a suitable candidate for anticoag therapy due to chronic liver disease. 4. Hypotension. 5. Acute purulent gangrenous cholecystitis due to Klebsiella. 6. Anemia 7. Acute Hypoxic respiratory failure, s/p right thoracentesis. 8. Acute Metabolic Encephalopathy 9. Anemia Subjective Subjective Supraventricular [id number] at rate of 120. Objective Last 24 Hour Vital Signs Date Time Temp Pulse Resp B/P (MAP) Pulse Ox O2 Delivery O2 Flow Rate FiO2 08/03/18 16:00 128 08/03/18 16:00 97.0 128 18 103/69 (80) 92 08/03/18 15:09 129 08/03/18 12:11 129 08/03/18 12:00 97.7 129 20 93/63 (73) 92 08/03/18 09:58 139 107/72 08/03/18 09:00 Room Air 08/03/18 08:00 95 Room Air 21 08/03/18 08:00 97.7 139 18 107/72 (84) 92 08/03/18 08:00 Room Air 21 08/03/18 07:55 137 08/03/18 04:00 98.7 84 18 106/71 (83) 92 08/03/18 03:49 82 08/03/18 01:08 78 08/03/18 00:00 98.9 80 18 116/76 (89) 93 08/02/18 21:00 Room Air 08/02/18 20:00 97.3 79 20 114/70 (85) 96 08/02/18 19:52 88 143/82 08/02/18 19:02 89 08/02/18 18:40 98.2 98 18 142/92 (109) 94 08/02/18 18:40 98.2 96 Room Air Intake and Output 08/02/18 08/03/18 19:00 07:00 Intake Total 375.0 ml Output Total 300 ml 810 ml Balance -300 ml -435.0 ml IV Total 375.0 ml Output Urine Total 300 ml 800 ml Drainage Total 10 ml # Voids 1 # Bowel Movements 1 2D Echo: LVEF 65%, Mild LVH, RVSP 50 mmHg, Mild MR/TX, Normal LVD Laboratory Tests Test 08/02/18 19:50 08/03/18 04:30 Vancomycin Level Trough 31.8 ug/mL (5.0-12.0) H White Blood Count 15.0 K/UL (4.8-10.8) H Red Blood Count 3.66 M/UL (4.70-6.10) L Hemoglobin 12.5 G/DL (14.2-18.0) L Hematocrit 36.1 % (42.0-52.0) L Mean Corpuscular Volume 99 FL (80-99) Mean Corpuscular Hemoglobin 34.1 PG (27.0-31.0) H Mean Corpuscular Hemoglobin Concent 34.5 G/DL (32.0-36.0) Red Cell Distribution Width 13.0 % (11.6-14.8) Platelet Count 440 K/UL (150-450) Mean Platelet Volume 7.1 FL (6.5-10.1) Neutrophils (%) (Auto) 78.6 % (45.0-75.0) H Lymphocytes (%) (Auto) 10.8 % (20.0-45.0) L Monocytes (%) (Auto) 5.3 % (1.0-10.0) Eosinophils (%) (Auto) 4.7 % (0.0-3.0) H Basophils (%) (Auto) 0.7 % (0.0-2.0) Sodium Level 141 MMOL/L (136-145) Potassium Level 3.7 MMOL/L (3.5-5.1) Chloride Level 106 MMOL/L (98-107) Carbon Dioxide Level 27 MMOL/L (21-32) Anion Gap 8 mmol/L (5-15) Blood Urea Nitrogen 17 mg/dL (7-18) Creatinine 1.4 MG/DL (0.55-1.30) H Estimat Glomerular Filtration Rate 51.2 mL/min (>60) Glucose Level 104 MG/DL (74-106) Calcium Level 8.9 MG/DL (8.5-10.1) Objective HEENT: normocephalic, atraumatic, anicteric, PERRL, dry mucous membrane Neck: no JVD, no carotid bruit. Respiratory/Chest: chest wall non-tender, lungs clear, normal breath sounds, no respiratory distress, no accessory muscle use Cardiovascular/Chest: Normal S1S2, no murmurs, gallops or rubs, rate,regular rhythm, tachycardic. Abdomen: normal bowel sounds, soft, no organomegaly, no mass, other - mild epigastric ttp Extremities: normal range of motion, non-tender, normal inspection, no calf tenderness, normal capillary refill, non-pitting Skin Exam: normal pigmentation, warm/dry Neurologic: no motor/sensory deficits, alert, oriented x 3, responsive, normal mood/affect Luis Patel MD Aug 03, 2018 17:57
--- NOTE | 2018-08-03 18:45 | NUR ---
NURSE NOTES: Dr. Patel states to discontinued metoprolol 5 mg IVP one time dose. 19:40: Endorse to mine shifter nurse
--- NOTE | 2018-08-03 18:51 | Infectious Diseases Prog Note ---
Assessment/Plan Assessment/Plan ASSESSMENT AND PLAN: 1. sepsis, klebsiella cholecystitis, s/p cholecystectomy, enterobacter pna, elevated lft's/lipase, pancreatitis, leukocytosis, fevers, sirs, jaqueline - change abx to levofloxacin and flagyl - monitor labs and chest x-ray - CT A/P noted 3. Smoking use. 4. Anemia. 5. Thrombocytosis. 6. No history of diabetes, hypertension, but he is on Norvasc. 7. No known allergies. 8. Social history positive for smoking and alcohol use. No history of intravenous drug abuse. 9. MAR was noted. 10. Case discussed with RN. 11. Continue treatment per primary consultants. 12. Case discussed at length the ICU nurse, the patient currently in ICU. 13. Continue skin care protocol and pulmonary treatments for now. Subjective Constitutional: Denies: fever HEENT: Denies: congestion Respiratory: Denies: shortness of breath Cardiovascular: Denies: chest pain Gastrointestinal/Abdominal: Denies: nausea, vomiting, diarrhea Genitourinary: Reports: other - + melchor Neurologic: Denies: headache Psychiatric: Denies: depression Skin: Denies: rash Hematologic: Denies: bleeding Musculoskeletal: Denies: pain Allergies: Coded Allergies: No Known Allergies (Unverified , 06/01/16) Objective Vital Signs Last 24 Hour Vital Signs Date Time Temp Pulse Resp B/P (MAP) Pulse Ox O2 Delivery O2 Flow Rate FiO2 08/03/18 16:00 128 08/03/18 16:00 97.0 128 18 103/69 (80) 92 08/03/18 15:09 129 08/03/18 12:11 129 08/03/18 12:00 97.7 129 20 93/63 (73) 92 08/03/18 09:58 139 107/72 08/03/18 09:00 Room Air 08/03/18 08:00 95 Room Air 21 08/03/18 08:00 97.7 139 18 107/72 (84) 92 08/03/18 08:00 Room Air 21 08/03/18 07:55 137 08/03/18 04:00 98.7 84 18 106/71 (83) 92 08/03/18 03:49 82 08/03/18 01:08 78 08/03/18 00:00 98.9 80 18 116/76 (89) 93 08/02/18 21:00 Room Air 08/02/18 20:00 97.3 79 20 114/70 (85) 96 08/02/18 19:52 88 143/82 08/02/18 19:02 89 Height (Feet): 5 Height (Inches): 8.00 Weight (Pounds): 159 General Appearance: no acute distress HEENT: normocephalic, atraumatic, anicteric, mucous membranes moist Respiratory/Chest: crackles/rales, rhonchi - bilaterally Cardiovascular: normal rate, regular rhythm, no gallop/murmur, no JVD Abdomen: normal bowel sounds, soft, non tender, no organomegaly, non distended Genitourinary: other - + melchor - urine clear Extremities: no cyanosis Skin: no rash Neurologic/Psychiatric: alert, responsive Lymphatic: no neck adenopathy Musculoskeletal: no effusion Objective 07/19/18 - chest x-ray - Comparison: 07/17/2018 post PICC radiograph Findings: Right-sided pleural effusion and hazy consolidation throughout the right lung is again noted. Apparent elevation of the right hemidiaphragm is again noted. The left lung demonstrates a very faint opacity in the left midlung which is not evident previously. However, interstitial congestion in the left lung has improved. Impression: Persistent right-sided pleural effusion and fairly extensive parenchymal infiltrate or edema Improved left lung interstitial congestion. Focal patchy left lung abnormality was not evident previously, however, and could represent a small area of infiltrate Chest x-ray - 07/22/18 - COMPARISON: Chest x-ray 07/19/18 837 FINDINGS: Lungs: Increasing opacities of the right lung. Pleural space: Slightly increasing right pleural effusion. No pneumothorax. Heart: Unremarkable. No cardiomegaly. Mediastinum: Unremarkable. Bones/joints: Unremarkable. Tubes, lines and devices: Left PICC line tip appears further advanced into the right atrium. NG tube traverses diaphragm, tip is not seen. Upper abdomen: Midepigastric gastric surgical clips. IMPRESSION: 1. Left PICC line tip appears further advanced into the right atrium. 2. Increasing opacities of the right lung. 3. Slightly increasing right pleural effusion. 07/24/18 - chest x-ray - A single view chest radiograph was obtained. Findings: Hazy opacity at the right lung base may be a pleural effusion. Heart is enlarged. There is suggestion of mild interstitial edema. PICC line is present on the left. IMPRESSION: Suspected mild interstitial edema and a small right pleural effusion. Chest x-ray - 07/27/18- Comparison: 07/26/2018 A single view chest radiograph was obtained. Findings: Patchy infiltrate noted in the right lung. There is less right pleural effusion present. Heart is mildly enlarged. PICC line is noted. IMPRESSION: Diminished right pleural effusion which may have 5 decreased or shifted. Patchy right basal and perihilar infiltrate noted Chest x-ray - 07/30/18 Comparison: 07/30/2018 Findings: Interim resolution of previously demonstrated right pleural effusion, postthoracentesis. Hazy infiltrates are seen throughout the right mid and lower lung. The left lung and pleural space remain clear. Left arm PICC remains. Impression: Resolved right pleural effusion, post thoracentesis. No radiographically evident complication Persistent right mid and lower lung infiltrates Chest x-ray - 08/01/18 - Findings: Interim improvement of previously demonstrated right mid and lower lung parenchymal opacity, with some residual. There is a small amount of pleural fluid on the right, slightly increased from the prior exam. Left lung and pleural space are largely clear, without definite findings corresponding to the findings described on recent CT scan. The heart size is normal. Left arm PICC remains. Postsurgical changes of the upper abdomen are again noted. Right hemidiaphragm remains slightly elevated Impression: Improving but persistent right lung infiltrate, over 2 days. Other stable findings as described CT abdomen and pelvis: IMPRESSION: Status post cholecystectomy. Complex 13 x 5 x 13.7 cm mixed attenuation collection in and extending from the gallbladder fossa. Given the presence of high attenuation elements, this most likely represents a postoperative hematoma. Infected collections not completely excludable, particularly in view of the presence of some rim enhancement Endobiliary stent in good position. No biliary ductal dilatation Atelectasis of a significant portion of the right lower lobe. However, volume loss is significantly improved from 07/10/2018 Fairly extensive infiltrates in the right lower lobe, with less extensive infiltrates in the right middle lobe, right upper lobe, and left upper lobe. There may be a component of chronic fibrosis within the right lower lobe opacities as well PICC in good position Trace right pleural effusion Gastrostomy in good position Microbiology Date/Time Source Procedure Growth Status 07/30/18 21:15 Blood Blood Culture - Preliminary NO GROWTH AFTER 72 HOURS Resulted 07/12/18 20:50 Peritoneal Fluid Gram Stain - Final Complete 07/12/18 20:50 Peritoneal Fluid Aerobic Culture - Final NO GROWTH Complete 07/12/18 20:50 Peritoneal Fluid Anaerobic Culture - Final NO GROWTH AFTER 5 DAYS Complete 07/21/18 14:45 Sputum Induced Gram Stain - Final Complete 07/21/18 14:45 Sputum Culture - Final Nery Albicans Usual Respiratory Carolyn Complete 07/30/18 22:00 External Cath Urine Culture - Final NO GROWTH AFTER 48 HOURS Complete Laboratory Tests Test 08/02/18 19:50 08/03/18 04:30 Vancomycin Level Trough 31.8 ug/mL (5.0-12.0) H White Blood Count 15.0 K/UL (4.8-10.8) H Red Blood Count 3.66 M/UL (4.70-6.10) L Hemoglobin 12.5 G/DL (14.2-18.0) L Hematocrit 36.1 % (42.0-52.0) L Mean Corpuscular Volume 99 FL (80-99) Mean Corpuscular Hemoglobin 34.1 PG (27.0-31.0) H Mean Corpuscular Hemoglobin Concent 34.5 G/DL (32.0-36.0) Red Cell Distribution Width 13.0 % (11.6-14.8) Platelet Count 440 K/UL (150-450) Mean Platelet Volume 7.1 FL (6.5-10.1) Neutrophils (%) (Auto) 78.6 % (45.0-75.0) H Lymphocytes (%) (Auto) 10.8 % (20.0-45.0) L Monocytes (%) (Auto) 5.3 % (1.0-10.0) Eosinophils (%) (Auto) 4.7 % (0.0-3.0) H Basophils (%) (Auto) 0.7 % (0.0-2.0) Sodium Level 141 MMOL/L (136-145) Potassium Level 3.7 MMOL/L (3.5-5.1) Chloride Level 106 MMOL/L (98-107) Carbon Dioxide Level 27 MMOL/L (21-32) Anion Gap 8 mmol/L (5-15) Blood Urea Nitrogen 17 mg/dL (7-18) Creatinine 1.4 MG/DL (0.55-1.30) H Estimat Glomerular Filtration Rate 51.2 mL/min (>60) Glucose Level 104 MG/DL (74-106) Calcium Level 8.9 MG/DL (8.5-10.1) Current Medications Medications (Trade) Dose Ordered Sig/[place] Route PRN Reason Start Time Stop Time Status Last Admin Dose Admin Acetaminophen (Tylenol) 650 mg Q4H PRN RECTAL Prn for Temp >100.5 07/28/18 21:05 08/14/18 21:04 08/03/18 06:26 Al Hydroxide/Mg Hydroxide (Mylanta) 15 ml Q6H PRN NG DYSPEPSIA 07/28/18 21:05 08/27/18 21:04 Chlorhexidine Gluconate (Estrella-Hex 2%) 1 applic DAILY@2000 TOPIC 07/29/18 20:00 08/15/18 19:59 08/02/18 20:41 Dextrose (Dextrose 50%) 25 ml Q30M PRN IV Hypoglycemia 07/28/18 21:05 08/17/18 21:04 Dextrose (Dextrose 50%) 50 ml Q30M PRN IV hypoglycemia 07/28/18 21:05 08/17/18 21:04 Diphenhydramine HCl (Benadryl) 12.5 mg Q6H PRN IVP Itching/Pruritis 07/28/18 21:05 08/27/18 21:04 Haloperidol Lactate (Haldol) 5 mg Q6H PRN IM Agitation 08/03/18 14:30 09/02/18 14:29 Heparin Sodium (Porcine) (Heparin 5000 units/ml) 5,000 units EVERY 12 HOURS SUBQ 08/03/18 09:00 09/02/18 08:59 Insulin Aspart (NovoLOG) No Dose Q6HR SUBQ 07/29/18 00:00 08/17/18 12:59 08/03/18 12:49 Magnesium Hydroxide (Mom) 30 ml BIDPRN PRN NG Constipation 07/28/18 21:05 08/27/18 21:04 Meropenem 1 gm/ Sodium Chloride 100 ml @ 200 mls/hr Q8HR IVPB 08/01/18 22:00 08/06/18 05:59 08/03/18 15:10 Metoclopramide HCl (Reglan) 5 mg EVERY 8 HOURS GT 08/01/18 14:00 08/31/18 13:59 08/03/18 13:41 Metoprolol Tartrate (Lopressor) 5 mg ONCE IVP 08/03/18 17:50 08/03/18 18:50 Nicotine (Nicoderm) 1 patch Q24H TDERMAL 07/29/18 18:00 08/08/18 17:59 08/01/18 17:30 Ondansetron HCl (Zofran) 4 mg Q6H PRN IVP Nausea & Vomiting 07/28/18 21:05 08/27/18 21:04 Pantoprazole (Protonix) 40 mg EVERY 12 HOURS IVP 07/29/18 09:00 08/28/18 08:59 08/03/18 09:59 Propranolol HCl (Inderal) 80 mg BID GT 08/02/18 09:00 08/27/18 11:59 08/03/18 09:58 Vancomycin HCl (Vanco rx to dose) 1 ea DAILY PRN MISC Per rx protocol 07/30/18 18:15 08/29/18 18:14 Tyler Madsen MD Aug 03, 2018 18:51
--- NOTE | 2018-08-03 19:35 | NUR ---
HAND-OFF: Report given to JAVIER Hatch.
--- NOTE | 2018-08-03 19:36 | NUR ---
NURSE NOTES: Received report from JAVIER Payne. Pt is awake and resting in bed. In no acute distress. IV PICC line intact and patent. GT feeding well tolerated. HOB elevated. Bed in lowest position, call light within reach. Will continue plan of care.
[2018-08-03 20:00] VITALS: BP 94/64
--- NOTE | 2018-08-03 20:01 | Pulmonology Progress Note ---
Assessment/Plan Assessment/Plan Pulmonary Progress Note Assessment/Plan Assessment/Plan Problems: (1) Cholecystitis, acute (2) Alcoholic pancreatitis (3) Pancreatitis, acute (4) Alcohol abuse (5) Abnormal LFTs (6) Gangrenous cholecystitis (7) Respiratory disorder with ventilator dependence Assessment & Plan: Extubated and TTF (8) Blood loss anemia (9) Pneumonia (10) Hepatitis C (11) Fatty liver Assessment/Plan ? pleural fluid studies, ? still pending Optimize pulmonary hygiene/mobilize as tolerated PRN O2 PRN ATROVENT HHN's Abx (Jair) per ID, F/U Cx's and monitor WCt GTF's GI & surgery recs Montor volumes and renal function DVT Px: Hep SQ FC Subjective Allergies: Coded Allergies: No Known Allergies (Unverified , 06/01/16) Subjective Seen earlier AFVSS on RA WCt 16 Carlos TFs, denies cough/congestion/SOB/wheezing, no FC Vital Signs Noted General Appearance: WD/WN, no acute distress HEENT: normocephalic, atraumatic, anicteric, mucous membranes moist Respiratory/Chest: chest wall non-tender, lungs clear, normal breath sounds, no respiratory distress, no accessory muscle use Cardiovascular: normal peripheral pulses, normal rate, regular rhythm Abdomen: normal bowel sounds, soft, non tender, no organomegaly, non distended , other - GT, dressed Extremities: no cyanosis, no clubbing, no edema Microbiology Date/Time Source Procedure Growth Status 07/30/18 22:00 External Cath Urine Culture - Final NO GROWTH AFTER 48 HOURS Complete Laboratory Tests 08/02/18 04:30: White Blood Count 15.9H, Red Blood Count 4.03L, Hemoglobin 13.7#L, Hematocrit 39.8L, Mean Corpuscular Volume 99, Mean Corpuscular Hemoglobin 33.9H, Mean Corpuscular Hemoglobin Concent 34.4, Red Cell Distribution Width 13.0, Platelet Count 573H, Mean Platelet Volume 6.8, Neutrophils (%) (Auto) 75.8H, Lymphocytes (%) (Auto) 13.4L, Monocytes (%) (Auto) 4.5, Eosinophils (%) (Auto) 5.5H, Basophils (%) (Auto) 0.9, Sodium Level 140, Potassium Level 4.3#, Chloride Level 106, Carbon Dioxide Level 28, Anion Gap 7, Blood Urea Nitrogen 19H, Creatinine 1.0#, Estimat Glomerular Filtration Rate > 60, Glucose Level 112H, Calcium Level 9.3# 08/02/18 19:50: Vancomycin Level Trough 31.8H Current Medications Medications (Trade) Dose Ordered Sig/[place] Route PRN Reason Start Time Stop Time Status Last Admin Dose Admin Acetaminophen (Tylenol) 650 mg Q4H PRN RECTAL Prn for Temp >100.5 07/28/18 21:05 08/14/18 21:04 Al Hydroxide/Mg Hydroxide (Mylanta) 15 ml Q6H PRN NG DYSPEPSIA 07/28/18 21:05 08/27/18 21:04 Chlorhexidine Gluconate (Estrella-Hex 2%) 1 applic DAILY@2000 TOPIC 07/29/18 20:00 08/15/18 19:59 08/02/18 20:41 Dextrose (Dextrose 50%) 25 ml Q30M PRN IV Hypoglycemia 07/28/18 21:05 08/17/18 21:04 Dextrose (Dextrose 50%) 50 ml Q30M PRN IV hypoglycemia 07/28/18 21:05 08/17/18 21:04 Diphenhydramine HCl (Benadryl) 12.5 mg Q6H PRN IVP Itching/Pruritis 07/28/18 21:05 08/27/18 21:04 Insulin Aspart (NovoLOG) No Dose Q6HR SUBQ 07/29/18 00:00 08/17/18 12:59 08/02/18 05:16 Magnesium Hydroxide (Mom) 30 ml BIDPRN PRN NG Constipation 07/28/18 21:05 08/27/18 21:04 Meropenem 1 gm/ Sodium Chloride 100 ml @ 200 mls/hr Q8HR IVPB 08/01/18 22:00 08/06/18 05:59 08/02/18 14:02 Metoclopramide HCl (Reglan) 5 mg EVERY 8 HOURS GT 08/01/18 14:00 08/31/18 13:59 08/02/18 14:01 Nicotine (Nicoderm) 1 patch Q24H TDERMAL 07/29/18 18:00 08/08/18 17:59 08/01/18 17:30 Ondansetron HCl (Zofran) 4 mg Q6H PRN IVP Nausea & Vomiting 07/28/18 21:05 08/27/18 21:04 Pantoprazole (Protonix) 40 mg EVERY 12 HOURS IVP 07/29/18 09:00 08/28/18 08:59 08/02/18 20:41 Propranolol HCl (Inderal) 80 mg BID GT 08/02/18 09:00 08/27/18 11:59 08/02/18 19:52 Vancomycin HCl (Vanco rx to dose) 1 ea DAILY PRN MISC Per rx protocol 07/30/18 18:15 08/29/18 18:14 Subjective ROS Limited/Unobtainable: No Allergies: Coded Allergies: No Known Allergies (Unverified , 06/01/16) Objective Last 24 Hour Vital Signs Date Time Temp Pulse Resp B/P (MAP) Pulse Ox O2 Delivery O2 Flow Rate FiO2 08/03/18 16:00 128 08/03/18 16:00 97.0 128 18 103/69 (80) 92 08/03/18 15:09 129 08/03/18 12:11 129 08/03/18 12:00 97.7 129 20 93/63 (73) 92 08/03/18 09:58 139 107/72 08/03/18 09:00 Room Air 08/03/18 08:00 95 Room Air 21 08/03/18 08:00 97.7 139 18 107/72 (84) 92 08/03/18 08:00 Room Air 21 08/03/18 07:55 137 08/03/18 04:00 98.7 84 18 106/71 (83) 92 08/03/18 03:49 82 08/03/18 01:08 78 08/03/18 00:00 98.9 80 18 116/76 (89) 93 08/02/18 21:00 Room Air Intake and Output 08/02/18 08/03/18 19:00 07:00 Intake Total 375.0 ml Output Total 300 ml 810 ml Balance -300 ml -435.0 ml IV Total 375.0 ml Output Urine Total 300 ml 800 ml Drainage Total 10 ml # Voids 1 # Bowel Movements 1 Laboratory Tests 08/03/18 04:30: White Blood Count 15.0H, Red Blood Count 3.66L, Hemoglobin 12.5L, Hematocrit 36.1L, Mean Corpuscular Volume 99, Mean Corpuscular Hemoglobin 34.1H, Mean Corpuscular Hemoglobin Concent 34.5, Red Cell Distribution Width 13.0, Platelet Count 440, Mean Platelet Volume 7.1, Neutrophils (%) (Auto) 78.6H, Lymphocytes ( %) (Auto) 10.8L, Monocytes (%) (Auto) 5.3, Eosinophils (%) (Auto) 4.7H, Basophils (%) (Auto) 0.7, Sodium Level 141, Potassium Level 3.7, Chloride Level 106, Carbon Dioxide Level 27, Anion Gap 8, Blood Urea Nitrogen 17, Creatinine 1.4H, Estimat Glomerular Filtration Rate 51.2, Glucose Level 104, Calcium Level 8.9 Current Medications Medications (Trade) Dose Ordered Sig/[place] Route PRN Reason Start Time Stop Time Status Last Admin Dose Admin Acetaminophen (Tylenol) 650 mg Q4H PRN RECTAL Prn for Temp >100.5 07/28/18 21:05 08/14/18 21:04 08/03/18 06:26 Al Hydroxide/Mg Hydroxide (Mylanta) 15 ml Q6H PRN NG DYSPEPSIA 07/28/18 21:05 08/27/18 21:04 Chlorhexidine Gluconate (Estrella-Hex 2%) 1 applic DAILY@2000 TOPIC 07/29/18 20:00 08/15/18 19:59 08/02/18 20:41 Dextrose (Dextrose 50%) 25 ml Q30M PRN IV Hypoglycemia 07/28/18 21:05 08/17/18 21:04 Dextrose (Dextrose 50%) 50 ml Q30M PRN IV hypoglycemia 07/28/18 21:05 08/17/18 21:04 Diphenhydramine HCl (Benadryl) 12.5 mg Q6H PRN IVP Itching/Pruritis 07/28/18 21:05 08/27/18 21:04 Haloperidol Lactate (Haldol) 5 mg Q6H PRN IM Agitation 08/03/18 14:30 09/02/18 14:29 Heparin Sodium (Porcine) (Heparin 5000 units/ml) 5,000 units EVERY 12 HOURS SUBQ 08/03/18 09:00 09/02/18 08:59 Insulin Aspart (NovoLOG) No Dose Q6HR SUBQ 07/29/18 00:00 08/17/18 12:59 08/03/18 12:49 Levofloxacin 100 ml @ 100 mls/hr Q24H IVPB 08/03/18 20:00 08/10/18 19:59 Magnesium Hydroxide (Mom) 30 ml BIDPRN PRN NG Constipation 07/28/18 21:05 08/27/18 21:04 Metoclopramide HCl (Reglan) 5 mg EVERY 8 HOURS GT 08/01/18 14:00 08/31/18 13:59 08/03/18 13:41 Metronidazole 100 ml @ 100 mls/hr Q8HR IVPB 08/03/18 22:00 08/10/18 21:59 Nicotine (Nicoderm) 1 patch Q24H TDERMAL 07/29/18 18:00 08/08/18 17:59 08/01/18 17:30 Ondansetron HCl (Zofran) 4 mg Q6H PRN IVP Nausea & Vomiting 07/28/18 21:05 08/27/18 21:04 Pantoprazole (Protonix) 40 mg EVERY 12 HOURS IVP 07/29/18 09:00 08/28/18 08:59 08/03/18 09:59 Propranolol HCl (Inderal) 80 mg BID GT 08/02/18 09:00 08/27/18 11:59 08/03/18 09:58 Parker Borjas MD Aug 03, 2018 20:01
--- NOTE | 2018-08-03 20:29 | General Progress Note ---
Assessment/Plan Assessment/Plan Anemia of chronic disease due to underlying chronic medical issues, multifactorial, pancreatitis --> Anemia workup has been reviewed --> No evidence of hemolysis is noted, peripheral smear has been reviewed. --> Hgb goal >7. Transfuse prn. --> Epogen or iron at this time is not particularly indicated --> Medications have been reviewed # Thrombocytopenia is likely related to underlying reactive processs from pancreatitis, acute, as well as alcoholic intoxication and myelosuppression --> also patient has a history of hepatitis C from prior admission --> smear has been reviewed --> heparin sq is okay if needed for dvt ppx # Erythrocytosis is likely related to dehydration --> hgb goal >7, no evidence of bleeding currently --> given ivf already # Leukocytosis no e/o annie infection --> could be due to reactive process v cholecystitis --> wbc trend: 22-->18-->16-->14-->18-->19-->15 --> peripheral smear has been reviewed --> ercp repeat in 6-8 weeks, stent was placed # Pancreatitis with alcohol abuse --> recommend etoh cessation --> amylase and lipase prn --> Status post ERCP with sphincterotomy and stent placement # Transaminitis --> likely related to etoh abuse --> in past seen by gi # Alcohol abuse -- recommend cessation # PEG inserted left lower quadrant The timing of this note does not necessarily reflect the time of the patient was seen. Greatly appreciate consultation! Subjective Constitutional: Denies: no symptoms, chills, diaphoresis, fever, malaise, weakness, other HEENT: Denies: no symptoms, eye pain, blurred vision, tearing, double vision, ear pain, ear discharge, nose pain, nose congestion, throat pain, throat swelling, mouth pain, mouth swelling, other Cardiovascular: Denies: no symptoms, chest pain, edema, irregular heart rate, lightheadedness, palpitations, syncope, other Respiratory: Denies: no symptoms, cough, orthopnea, shortness of breath, SOB with excertion, SOB at rest, sputum, stridor, wheezing, other Gastrointestinal/Abdominal: Denies: no symptoms, abdomen distended, abdominal pain, black stools, tarry stools, blood in stool, constipated, diarrhea, difficulty swallowing, nausea, poor appetite, poor fluid intake, rectal bleeding , vomiting, other Genitourinary: Denies: no symptoms, burning, discharge, frequency, flank pain, hematuria, incontinence, pain, urgency, other Neurologic/Psychiatric: Denies: no symptoms, anxiety, depressed, emotional problems, headache, numbness, paresthesia, pre-existing deficit, seizure, tingling, tremors, weakness, other Endocrine: Denies: no symptoms, excessive sweating, flushing, intolerance to cold, intolerance to heat, increased hunger, increased thirst, increased urine, unexplained weight gain, unexplained weight loss, other Hematologic/Lymphatic: Denies: no symptoms, anemia, easy bleeding, easy bruising, other Allergies: Coded Allergies: No Known Allergies (Unverified , 06/01/16) Subjective 07/05: bp was high today and dc was cancelled until tomorow, on librium 07/06: wbc was high though other counts are better, no f/c 07/10: seen by bedside, heart rate increased, appears agitated, wbc 13.9 07/11: to get ercp tomorrow, surgery and gi following 07/12 ercp, sphincterotomy, stent placement surgery done today, currently having tremors and tachy. wbc 15.9, hgb 14, plt 429 07/13: Pt is intubated, seen by bedside,wbc 22, on abx, no acute distress 07/14: awake and comfortable, still intubated on vent, labs noted hb trending down, wbc 18, hgb 8. 07/16: seen by bedside, awake, comfortable, wbc 14, hgb 9, plt 613 07/17: awake, comfortable, status post ERCP with sphincterotomy wbc 21, hgb 10, plt 689. 07/18; seen by bedside, awake comfortable, on venturi mask, wbc 23, plt 754. 07/19: seen by bedside, awake and comfortable, no events, wbc 21 07/20: now out of the icu, doing better, wbc improved, remains on abx as per ID 07/22: Pt is awake, comfortable, wbc 16, lt 632, on abx 07/23 Pt is awake, comfortable, wbc 15, plt 574, on abx, CXR revelals, Increasing opacities of the right lung and Slightly increasing right pleural effusion 07/24: ng has been removed, seen by other consultants, hgb has improved, no bleeding 07/25: seen by bedside, awake, comfortable, on nasal canula, failed video swallow test and has some PO meds, wbc trending down. 07/26: awake, comfortable, G-tube placement consent signed 07/27: a janell overnignt, in ICU , awake, alert, responsive, PEG inserted today, wbc 19. 07/30: resting in bed awake,alert disoriented on and off,Thoracentesis done, wbc trending up again, Chest x-ray reveals, Resolved right pleural effusion, post thoracentesis. No radiographically evident complication Persistent right mid and lower lung infiltrates. 07/31: seen by bedside, awake, confused, no signs of acute distress. 08/01: Pt is resting in bed, no acute events reported, 08/02: no acute distress at this time, wbc 15, CXR reveals, Improving but persistent right lung infiltrate. 08/03: seen by bedside, awake, comfortable, no acute distress. wbc 15 Objective Last 24 Hour Vital Signs Date Time Temp Pulse Resp B/P (MAP) Pulse Ox O2 Delivery O2 Flow Rate FiO2 08/03/18 20:26 128 103/69 08/03/18 16:00 128 08/03/18 16:00 97.0 128 18 103/69 (80) 92 08/03/18 15:09 129 08/03/18 12:11 129 08/03/18 12:00 97.7 129 20 93/63 (73) 92 08/03/18 09:58 139 107/72 08/03/18 09:00 Room Air 08/03/18 08:00 95 Room Air 21 08/03/18 08:00 97.7 139 18 107/72 (84) 92 08/03/18 08:00 Room Air 21 08/03/18 07:55 137 08/03/18 04:00 98.7 84 18 106/71 (83) 92 08/03/18 03:49 82 08/03/18 01:08 78 08/03/18 00:00 98.9 80 18 116/76 (89) 93 08/02/18 21:00 Room Air Intake and Output 08/02/18 08/03/18 19:00 07:00 Intake Total 375.0 ml Output Total 300 ml 810 ml Balance -300 ml -435.0 ml IV Total 375.0 ml Output Urine Total 300 ml 800 ml Drainage Total 10 ml # Voids 1 # Bowel Movements 1 Laboratory Tests 08/03/18 04:30: White Blood Count 15.0H, Red Blood Count 3.66L, Hemoglobin 12.5L, Hematocrit 36.1L, Mean Corpuscular Volume 99, Mean Corpuscular Hemoglobin 34.1H, Mean Corpuscular Hemoglobin Concent 34.5, Red Cell Distribution Width 13.0, Platelet Count 440, Mean Platelet Volume 7.1, Neutrophils (%) (Auto) 78.6H, Lymphocytes ( %) (Auto) 10.8L, Monocytes (%) (Auto) 5.3, Eosinophils (%) (Auto) 4.7H, Basophils (%) (Auto) 0.7, Sodium Level 141, Potassium Level 3.7, Chloride Level 106, Carbon Dioxide Level 27, Anion Gap 8, Blood Urea Nitrogen 17, Creatinine 1.4H, Estimat Glomerular Filtration Rate 51.2, Glucose Level 104, Calcium Level 8.9 Height (Feet): 5 Height (Inches): 8.00 Weight (Pounds): 159 Objective Physical Exam General Appearance: A+O x3, NAD, ++ asterixis HEENT: normocephalic, atraumatic Neck: non-tender, normal alignment Respiratory/Chest: chest wall non-tender, lungs clear Cardiovascular/Chest: normal peripheral pulses, normal rate Abdomen: normal bowel sounds, non tender.++PEG Extremities: normal range of motion Guy Salazar MD Aug 03, 2018 20:29
[2018-08-03] MEDS: Dyna-Hex 2% Top Sol 2oz TOPIC SCH (21:10)
[2018-08-04] VITALS: BP 95/60
[2018-08-04 04:00] VITALS: BP 90/65
[2018-08-04] MEDS: NovoLOG Insulin Flexpen SUBQ SCH ×4 (06:00→17:50)
[2018-08-04] MEDS: Metoclopramide 10mg/10ml Liq GT SCH ×3 (06:22→22:12)
--- NOTE | 2018-08-04 07:40 | NUR ---
NURSE NOTES: Received report from Holden HERRERA. Pt is awake, alert, oriented x2, resting in bed with head of bed at 30degrees, watching TV. GT in place infusing Osmolyte 1.2 at 40ml/hr currently, tolerating well with no reports or s/s of nausea/vomiting or abdominal discomfort. JUNE drain in place on RUQ with small amount of sanguineous drainage. Double lumen PICC line on left upper arm, patent/intact. Serrano catheter in place, draining clear/dark yellow urine. On room air with no respiratory distress. Pt is on P200 mattress. Call light is placed within easy reach, bed in lowest position, three side rails up, brakes engaged, alarm on. Will continue to monitor pt and follow plan of care per Md orders and protocol.
--- NOTE | 2018-08-04 07:57 | NUR ---
HAND-OFF: Report given to JAVIER Michael.
[2018-08-04 08:00] VITALS: BP 94/62
--- NOTE | 2018-08-04 08:23 | General Progress Note ---
Assessment/Plan Status: stable Assessment/Plan #Sepsis #Acute purulent gangrenous cholecystitis. #klebsiella cholecystitis #acute Hypoxic respiratory failure #Acute Metabolic Encephalopathy - due to alcohol withdrawal and sepsis - meropenem, Diflucan - bcx x 2 ngtd - s/p ercp 07/12 - gen surg following s/p lap jocelyn converted to open jocelyn 07/12 - extubated on 07/16/18 - off o2 ncl - pulm following appreciated - pain control - appreciate surg recs - tpn -NG tube removed -s/p PEG -CT A/P pending today #Acute Blood Loss Anemia - due to recent surgery - no overt bleeding noted currently - hgb 6.8 07/15, transfused 2U, 9.7 (07/16) - stable #Pleural Effusions - b/l - per mrcp - stable - pulm consult appreciated #Alcohol Pancreatitis #Intractable abdominal pain #intractable nausea/vomiting #Transaminitis #Alcohol Hepatitis #Alcohol withdrawals #Fatty Liver Disease #Hepatitis C - LFTs 446/532 - Lipase 687 - due to alcohol abuse - INR 1.0 - discriminant function, 4.5 , no need for steroids - US abd completed and reviewed, showing fatty liver disease. GS present, no obstruction noted - ppi - PRN antiemetics, zofran prn - Per GI, will need ERCP in 6-8 weeks for stent removal #Failure to thrive - due to alcohol withdrawals and the above - alcoholic pancreatitis - fluids #Alcohol Abuse - educated on cessation for 15 mins - patient states he understands and will try to quit - RN notified to monitor carefully with withdrawals - prn ativan - ciwa #Uncontrolled HTN and tachycardia overnight -all oral BP meds held for now -continue metoprolol IV q6h -transferred to ICU, on amiodarone drip #Tobacco abuse - smokes 1ppd - educated on smoking cessation for over 15 mins, states he understands the risks of smoking and will try to quit #Dysphagia -MANAGER NEWS to re-evaluate -Continue tube feeds via PEG #Hypernatremia - resoved -continue free water flushes via G-tube #Hypokalemia improved continue to monitor BMP I have spent over 60 mins reviewing records and tests and communicating with other medical equipment technician, during/following contact with patient. I spent 43 minutes on this patient's case, and 31 minutes were dedicated to counseling and/or care coordination. Discussed with patient/family, nursing staff, SW/CM, [] regarding clinical status, treatment course, and disposition planning. Time of note may not reflect time of encounter. Subjective Allergies: Coded Allergies: No Known Allergies (Unverified , 06/01/16) Subjective Medicine follow up for multiple medical problems including acute gangrenous cholecystitis, acute hypoxic respiratory failure, acute encephalopathy doing well stable no acute events overnight ROS: 14 point ROS reviewed and negative except per above Objective Last 24 Hour Vital Signs Date Time Temp Pulse Resp B/P (MAP) Pulse Ox O2 Delivery O2 Flow Rate FiO2 08/04/18 04:00 97.0 135 20 90/65 (73) 94 08/04/18 04:00 135 08/04/18 00:00 130 08/04/18 00:00 97.0 130 20 95/60 (72) 95 08/03/18 21:00 Room Air 08/03/18 20:26 128 103/69 08/03/18 20:00 97.0 130 20 94/64 (74) 96 08/03/18 20:00 130 08/03/18 16:00 128 08/03/18 16:00 97.0 128 18 103/69 (80) 92 08/03/18 15:09 129 08/03/18 12:11 129 08/03/18 12:00 97.7 129 20 93/63 (73) 92 08/03/18 09:58 139 107/72 08/03/18 09:00 Room Air Intake and Output 08/03/18 08/04/18 19:00 07:00 Intake Total 950 ml Output Total 100 ml 458 ml Balance -100 ml 492 ml Free Water 600 ml Tube Feeding 350 ml Output Urine Total 100 ml 450 ml Drainage Total 8 ml # Bowel Movements 1 1 Height (Feet): 5 Height (Inches): 8.00 Weight (Pounds): 159 Objective General Appearance: alert, stable, awake Lines, tubes and drains: peripheral HEENT: normocephalic, atraumatic, anicteric, PERRL Neck: non-tender, normal alignment Respiratory/Chest: chest wall non-tender, mechanical breath sounds, no respiratory distress, no accessory muscle use Cardiovascular/Chest: normal peripheral pulses, normal rate, regular rhythm Abdomen: normal bowel sounds, soft, no organomegaly, no mass, drain in place, Extremities: normal range of motion, non-tender, normal inspection, no calf tenderness, normal capillary refill, non-pitting. +asterixis Skin Exam: normal pigmentation, warm/dry Neurologic: no motor/sensory deficits, alert, oriented x 3, responsive, normal mood/affect Eulogio Siddiqi MD Aug 04, 2018 08:23
[2018-08-04] MEDS: Pantoprazole Inj IVP SCH ×2 (09:05→21:05)
[2018-08-04] MEDS: Propranolol 40mg tab GT SCH ×2 (09:06→17:53)
[2018-08-04] MEDS: Heparin 5000 units/ml inj SUBQ SCH ×2 (09:08→21:10)
--- NOTE | 2018-08-04 09:29 | NUR ---
CASE MANAGEMENT: REVIEW 08/03/2018 SI: ALCOHOLIC PANCREATIS. T 97 HR 130 RR 20 B/P 95/60 SATS 95% ON RA AML PENDING IS: AMIODARONE IV Q24HR MEROPENEM IV Q8HR PROTONIX IV Q12HR GT FEEDING GLUCERNA 1.5 @ 60ML/HR TELE STATUS DCP: PATIENT IS FROM HOME
[2018-08-04 09:34] LABS: BASOPHILS % (AUTO) 0.7 % (0.0-2.0); EOSINOPHILS % (AUTO) 4.1 % (0.0-3.0); HEMATOCRIT 37.4 % (42.0-52.0); HEMOGLOBIN 12.7 G/DL (14.2-18.0); LYMPHOCYTES % (AUTO) 10.8 % (20.0-45.0); MEAN CORPUSCULAR VOLUME 99 FL (80-99); MONOCYTES % (AUTO) 7.5 % (1.0-10.0); NEUTROPHILS % (AUTO) 76.9 % (45.0-75.0); PLATELET COUNT 414 K/UL (150-450); RED BLOOD COUNT 3.77 M/UL (4.70-6.10); RED CELL DISTRIBUTION WIDTH 13.3 % (11.6-14.8); WHITE BLOOD COUNT 13.7 K/UL (4.8-10.8)
[2018-08-04 10:04] LABS: ALANINE AMINOTRANSFERASE 80 U/L (12-78); ALBUMIN/GLOBULIN RATIO 0.4 (1.0-2.7); ALKALINE PHOSPHATASE 87 U/L (46-116); AMYLASE 107 U/L (25-115); ANION GAP 7 mmol/L (5-15); ASPARTATE AMINO TRANSFERASE 59 U/L (15-37); BILIRUBIN,TOTAL 0.4 MG/DL (0.2-1.0); BLOOD UREA NITROGEN 17 mg/dL (7-18); CALCIUM 8.4 MG/DL (8.5-10.1); CARBON DIOXIDE 27 MMOL/L (21-32); CHLORIDE 106 MMOL/L (98-107); CREATININE 1.4 MG/DL (0.55-1.30); POTASSIUM 3.8 MMOL/L (3.5-5.1); SODIUM 140 MMOL/L (136-145)
--- NOTE | 2018-08-04 10:30 | NUR ---
NURSE NOTES: Pt had episode of AFib with RVR at 0800 with no chest pain/SOB or other discomfort symptoms present. After AM med administration, heart rhythm converted to SR. Pt is resting in bed, watching TV comfortably.
--- NOTE | 2018-08-04 11:05 | General Progress Note ---
Assessment/Plan Problem List: (1) Cholecystitis, acute ICD Codes: K81.0 - Acute cholecystitis SNOMED: 90600976 (2) Abnormal LFTs ICD Codes: R79.89 - Other specified abnormal findings of blood chemistry SNOMED: 076076384 (3) Fatty liver ICD Codes: K76.0 - Fatty (change of) liver, not elsewhere classified SNOMED: 704299777 (4) PEG (percutaneous endoscopic gastrostomy) status ICD Codes: Z93.1 - Gastrostomy status SNOMED: 384926009, 508269755 (5) S/P cholecystectomy ICD Codes: Z90.49 - Acquired absence of other specified parts of digestive tract SNOMED: 30722947, 77156647, 524405954 (6) Paroxysmal atrial fibrillation with rapid ventricular response ICD Codes: I48.0 - Paroxysmal atrial fibrillation SNOMED: 353291482, 915174312793835 (7) Pneumonia ICD Codes: J18.9 - Pneumonia, unspecified organism SNOMED: 684380740 (8) Hepatitis C ICD Codes: B19.20 - Unspecified viral hepatitis C without hepatic coma SNOMED: 51007927 Assessment/Plan CT reviewed continue GTF will need ERCP and stent removal in 8 weeks Subjective ROS Limited/Unobtainable: Yes Allergies: Coded Allergies: No Known Allergies (Unverified , 06/01/16) Subjective abd pain Objective Last 24 Hour Vital Signs Date Time Temp Pulse Resp B/P (MAP) Pulse Ox O2 Delivery O2 Flow Rate FiO2 08/04/18 10:08 126 08/04/18 09:06 120 94/62 08/04/18 09:00 Room Air 08/04/18 08:00 97.6 120 20 94/62 (73) 95 08/04/18 08:00 143 08/04/18 04:00 97.0 135 20 90/65 (73) 94 08/04/18 04:00 135 08/04/18 00:00 130 08/04/18 00:00 97.0 130 20 95/60 (72) 95 08/03/18 21:00 Room Air 08/03/18 20:26 128 103/69 08/03/18 20:00 97.0 130 20 94/64 (74) 96 08/03/18 20:00 130 08/03/18 16:00 128 08/03/18 16:00 97.0 128 18 103/69 (80) 92 08/03/18 15:09 129 08/03/18 12:11 129 08/03/18 12:00 97.7 129 20 93/63 (73) 92 Intake and Output 08/03/18 08/04/18 18:59 06:59 Intake Total 950 ml Output Total 110 ml 458 ml Balance -110 ml 492 ml Free Water 600 ml Tube Feeding 350 ml Output Urine Total 100 ml 450 ml Drainage Total 10 ml 8 ml # Bowel Movements 1 1 Laboratory Tests 08/04/18 07:30: White Blood Count 13.7H, Red Blood Count 3.77L, Hemoglobin 12.7L, Hematocrit 37.4L, Mean Corpuscular Volume 99, Mean Corpuscular Hemoglobin 33.7H, Mean Corpuscular Hemoglobin Concent 33.9, Red Cell Distribution Width 13.3, Platelet Count 414, Mean Platelet Volume 6.8, Neutrophils (%) (Auto) 76.9H, Lymphocytes ( %) (Auto) 10.8L, Monocytes (%) (Auto) 7.5, Eosinophils (%) (Auto) 4.1H, Basophils (%) (Auto) 0.7, Sodium Level 140, Potassium Level 3.8, Chloride Level 106, Carbon Dioxide Level 27, Anion Gap 7, Blood Urea Nitrogen 17, Creatinine 1.4H, Estimat Glomerular Filtration Rate 51.2, Glucose Level 112H, Calcium Level 8.4L, Total Bilirubin 0.4, Aspartate Amino Transf (AST/SGOT) 59H, Alanine Aminotransferase (ALT/SGPT) 80H, Alkaline Phosphatase 87, Total Protein 7.5, Albumin 2.0L, Globulin 5.5, Albumin/Globulin Ratio 0.4L, Amylase Level 107, Lipase 630H Height (Feet): 5 Height (Inches): 8.00 Weight (Pounds): 159 General Appearance: alert EENT: normal ENT inspection Neck: supple Cardiovascular: normal rate Respiratory/Chest: decreased breath sounds Abdomen: normal bowel sounds, non tender, soft Extremities: non-tender Toñito Yip MD Aug 04, 2018 11:05
[2018-08-04 12:00] VITALS: BP 87/54
--- NOTE | 2018-08-04 14:00 | Pulmonology Progress Note ---
Assessment/Plan Assessment/Plan Pulmonary Progress Note Assessment/Plan Assessment/Plan Problems: (1) Cholecystitis, acute (2) Alcoholic pancreatitis (3) Pancreatitis, acute (4) Alcohol abuse (5) Abnormal LFTs (6) Gangrenous cholecystitis (7) Respiratory disorder with ventilator dependence Assessment & Plan: Extubated and TTF (8) Blood loss anemia (9) Pneumonia (10) Hepatitis C (11) Fatty liver Assessment/Plan ? pleural fluid studies, ? still pending Optimize pulmonary hygiene/mobilize as tolerated PRN O2 PRN ATROVENT HHN's Abx (Jair) per ID, F/U Cx's and monitor WCt GTF's GI & surgery recs Montor volumes and renal function DVT Px: Hep SQ FC Subjective Allergies: Coded Allergies: No Known Allergies (Unverified , 06/01/16) Subjective Seen earlier AFVSS on RA WCt 16 Carlos TFs, denies cough/congestion/SOB/wheezing, no FC Vital Signs Noted General Appearance: WD/WN, no acute distress HEENT: normocephalic, atraumatic, anicteric, mucous membranes moist Respiratory/Chest: chest wall non-tender, lungs clear, normal breath sounds, no respiratory distress, no accessory muscle use Cardiovascular: normal peripheral pulses, normal rate, regular rhythm Abdomen: normal bowel sounds, soft, non tender, no organomegaly, non distended , other - GT, dressed Extremities: no cyanosis, no clubbing, no edema Microbiology Date/Time Source Procedure Growth Status 07/30/18 22:00 External Cath Urine Culture - Final NO GROWTH AFTER 48 HOURS Complete Laboratory Tests 08/02/18 04:30: White Blood Count 15.9H, Red Blood Count 4.03L, Hemoglobin 13.7#L, Hematocrit 39.8L, Mean Corpuscular Volume 99, Mean Corpuscular Hemoglobin 33.9H, Mean Corpuscular Hemoglobin Concent 34.4, Red Cell Distribution Width 13.0, Platelet Count 573H, Mean Platelet Volume 6.8, Neutrophils (%) (Auto) 75.8H, Lymphocytes (%) (Auto) 13.4L, Monocytes (%) (Auto) 4.5, Eosinophils (%) (Auto) 5.5H, Basophils (%) (Auto) 0.9, Sodium Level 140, Potassium Level 4.3#, Chloride Level 106, Carbon Dioxide Level 28, Anion Gap 7, Blood Urea Nitrogen 19H, Creatinine 1.0#, Estimat Glomerular Filtration Rate > 60, Glucose Level 112H, Calcium Level 9.3# 08/02/18 19:50: Vancomycin Level Trough 31.8H Current Medications Medications (Trade) Dose Ordered Sig/[place] Route PRN Reason Start Time Stop Time Status Last Admin Dose Admin Acetaminophen (Tylenol) 650 mg Q4H PRN RECTAL Prn for Temp >100.5 07/28/18 21:05 08/14/18 21:04 Al Hydroxide/Mg Hydroxide (Mylanta) 15 ml Q6H PRN NG DYSPEPSIA 07/28/18 21:05 08/27/18 21:04 Chlorhexidine Gluconate (Estrella-Hex 2%) 1 applic DAILY@2000 TOPIC 07/29/18 20:00 08/15/18 19:59 08/02/18 20:41 Dextrose (Dextrose 50%) 25 ml Q30M PRN IV Hypoglycemia 07/28/18 21:05 08/17/18 21:04 Dextrose (Dextrose 50%) 50 ml Q30M PRN IV hypoglycemia 07/28/18 21:05 08/17/18 21:04 Diphenhydramine HCl (Benadryl) 12.5 mg Q6H PRN IVP Itching/Pruritis 07/28/18 21:05 08/27/18 21:04 Insulin Aspart (NovoLOG) No Dose Q6HR SUBQ 07/29/18 00:00 08/17/18 12:59 08/02/18 05:16 Magnesium Hydroxide (Mom) 30 ml BIDPRN PRN NG Constipation 07/28/18 21:05 08/27/18 21:04 Meropenem 1 gm/ Sodium Chloride 100 ml @ 200 mls/hr Q8HR IVPB 08/01/18 22:00 08/06/18 05:59 08/02/18 14:02 Metoclopramide HCl (Reglan) 5 mg EVERY 8 HOURS GT 08/01/18 14:00 08/31/18 13:59 08/02/18 14:01 Nicotine (Nicoderm) 1 patch Q24H TDERMAL 07/29/18 18:00 08/08/18 17:59 08/01/18 17:30 Ondansetron HCl (Zofran) 4 mg Q6H PRN IVP Nausea & Vomiting 07/28/18 21:05 08/27/18 21:04 Pantoprazole (Protonix) 40 mg EVERY 12 HOURS IVP 07/29/18 09:00 08/28/18 08:59 08/02/18 20:41 Propranolol HCl (Inderal) 80 mg BID GT 08/02/18 09:00 08/27/18 11:59 08/02/18 19:52 Vancomycin HCl (Vanco rx to dose) 1 ea DAILY PRN MISC Per rx protocol 07/30/18 18:15 08/29/18 18:14 Subjective ROS Limited/Unobtainable: No Allergies: Coded Allergies: No Known Allergies (Unverified , 06/01/16) Objective Last 24 Hour Vital Signs Date Time Temp Pulse Resp B/P (MAP) Pulse Ox O2 Delivery O2 Flow Rate FiO2 08/04/18 10:08 126 08/04/18 09:06 120 94/62 08/04/18 09:00 Room Air 08/04/18 08:00 97.6 120 20 94/62 (73) 95 08/04/18 08:00 143 08/04/18 04:00 97.0 135 20 90/65 (73) 94 08/04/18 04:00 135 08/04/18 00:00 130 08/04/18 00:00 97.0 130 20 95/60 (72) 95 08/03/18 21:00 Room Air 08/03/18 20:26 128 103/69 08/03/18 20:00 97.0 130 20 94/64 (74) 96 08/03/18 20:00 130 08/03/18 16:00 128 08/03/18 16:00 97.0 128 18 103/69 (80) 92 08/03/18 15:09 129 Intake and Output 08/03/18 08/04/18 18:59 06:59 Intake Total 950 ml Output Total 110 ml 458 ml Balance -110 ml 492 ml Free Water 600 ml Tube Feeding 350 ml Output Urine Total 100 ml 450 ml Drainage Total 10 ml 8 ml # Bowel Movements 1 1 Laboratory Tests 08/04/18 07:30: White Blood Count 13.7H, Red Blood Count 3.77L, Hemoglobin 12.7L, Hematocrit 37.4L, Mean Corpuscular Volume 99, Mean Corpuscular Hemoglobin 33.7H, Mean Corpuscular Hemoglobin Concent 33.9, Red Cell Distribution Width 13.3, Platelet Count 414, Mean Platelet Volume 6.8, Neutrophils (%) (Auto) 76.9H, Lymphocytes ( %) (Auto) 10.8L, Monocytes (%) (Auto) 7.5, Eosinophils (%) (Auto) 4.1H, Basophils (%) (Auto) 0.7, Sodium Level 140, Potassium Level 3.8, Chloride Level 106, Carbon Dioxide Level 27, Anion Gap 7, Blood Urea Nitrogen 17, Creatinine 1.4H, Estimat Glomerular Filtration Rate 51.2, Glucose Level 112H, Calcium Level 8.4L, Total Bilirubin 0.4, Aspartate Amino Transf (AST/SGOT) 59H, Alanine Aminotransferase (ALT/SGPT) 80H, Alkaline Phosphatase 87, Total Protein 7.5, Albumin 2.0L, Globulin 5.5, Albumin/Globulin Ratio 0.4L, Amylase Level 107, Lipase 630H Current Medications Medications (Trade) Dose Ordered Sig/[place] Route PRN Reason Start Time Stop Time Status Last Admin Dose Admin Acetaminophen (Tylenol) 650 mg Q4H PRN RECTAL Prn for Temp >100.5 07/28/18 21:05 08/14/18 21:04 08/03/18 06:26 Al Hydroxide/Mg Hydroxide (Mylanta) 15 ml Q6H PRN NG DYSPEPSIA 07/28/18 21:05 08/27/18 21:04 Chlorhexidine Gluconate (Estrella-Hex 2%) 1 applic DAILY@2000 TOPIC 07/29/18 20:00 08/15/18 19:59 08/03/18 21:10 Dextrose (Dextrose 50%) 25 ml Q30M PRN IV Hypoglycemia 07/28/18 21:05 08/17/18 21:04 Dextrose (Dextrose 50%) 50 ml Q30M PRN IV hypoglycemia 07/28/18 21:05 08/17/18 21:04 Diphenhydramine HCl (Benadryl) 12.5 mg Q6H PRN IVP Itching/Pruritis 07/28/18 21:05 08/27/18 21:04 Haloperidol Lactate (Haldol) 5 mg Q6H PRN IM Agitation 08/03/18 14:30 09/02/18 14:29 Heparin Sodium (Porcine) (Heparin 5000 units/ml) 5,000 units EVERY 12 HOURS SUBQ 08/03/18 09:00 09/02/18 08:59 08/04/18 09:08 Insulin Aspart (NovoLOG) No Dose Q6HR SUBQ 07/29/18 00:00 08/17/18 12:59 08/04/18 12:43 Levofloxacin 100 ml @ 100 mls/hr Q24H IVPB 08/03/18 20:00 08/10/18 19:59 08/03/18 21:10 Magnesium Hydroxide (Mom) 30 ml BIDPRN PRN NG Constipation 07/28/18 21:05 08/27/18 21:04 Metoclopramide HCl (Reglan) 5 mg EVERY 8 HOURS GT 08/01/18 14:00 08/31/18 13:59 08/04/18 12:44 Metronidazole 100 ml @ 100 mls/hr Q8HR IVPB 08/03/18 22:00 08/10/18 21:59 08/04/18 12:45 Nicotine (Nicoderm) 1 patch Q24H TDERMAL 07/29/18 18:00 08/08/18 17:59 08/03/18 20:27 Ondansetron HCl (Zofran) 4 mg Q6H PRN IVP Nausea & Vomiting 07/28/18 21:05 08/27/18 21:04 Pantoprazole (Protonix) 40 mg EVERY 12 HOURS IVP 07/29/18 09:00 08/28/18 08:59 08/04/18 09:05 Propranolol HCl (Inderal) 80 mg BID GT 08/02/18 09:00 08/27/18 11:59 08/04/18 09:06 Parker Borjas MD Aug 04, 2018 14:00
[2018-08-04 16:00] VITALS: BP 92/59
--- NOTE | 2018-08-04 19:30 | NUR ---
HAND-OFF: Report given to Holden HERRERA. Pt is resting in bed in stable condition. Endorsed plan of care.
--- NOTE | 2018-08-04 19:33 | NUR ---
NURSE NOTES: Receive report from Afua HERRERA. Pt stable and awake. Bed in lowest position and call light within reach. Will continue with plan of care.
[2018-08-04] MEDS: Dyna-Hex 2% Top Sol 2oz TOPIC SCH (20:45)
--- NOTE | 2018-08-04 21:37 | Cardiology Progress Note ---
Assessment/Plan Assessment/Plan 1. Paroxysmal SVT, coverted to SR, continue propranolol. 2. Septic shock. 3. PAF, not a suitable candidate for anticoag therapy due to chronic liver disease. 4. Moderate pulmonary HTN. 5. Acute purulent gangrenous cholecystitis due to Klebsiella. 6. Anemia 7. Acute Hypoxic respiratory failure, s/p right thoracentesis. 8. Acute Metabolic Encephalopathy 9. Anemia Subjective Subjective Sinus rhythm at rate of 82. Objective Last 24 Hour Vital Signs Date Time Temp Pulse Resp B/P (MAP) Pulse Ox O2 Delivery O2 Flow Rate FiO2 08/04/18 16:00 97.9 82 18 92/59 (70) 95 08/04/18 16:00 86 08/04/18 12:00 75 08/04/18 12:00 97.3 77 19 87/54 (65) 96 08/04/18 10:08 126 08/04/18 09:06 120 94/62 08/04/18 09:00 Room Air 08/04/18 08:00 97.6 120 20 94/62 (73) 95 08/04/18 08:00 143 08/04/18 04:00 97.0 135 20 90/65 (73) 94 08/04/18 04:00 135 08/04/18 00:00 130 08/04/18 00:00 97.0 130 20 95/60 (72) 95 Intake and Output 08/03/18 08/04/18 19:00 07:00 Intake Total 950 ml Output Total 100 ml 458 ml Balance -100 ml 492 ml Free Water 600 ml Tube Feeding 350 ml Output Urine Total 100 ml 450 ml Drainage Total 8 ml # Bowel Movements 1 1 2D Echo: LVEF 65%, Mild LVH, RVSP 50 mmHg, Mild MR/NC, Normal LVD Laboratory Tests Test 08/04/18 07:30 White Blood Count 13.7 K/UL (4.8-10.8) H Red Blood Count 3.77 M/UL (4.70-6.10) L Hemoglobin 12.7 G/DL (14.2-18.0) L Hematocrit 37.4 % (42.0-52.0) L Mean Corpuscular Volume 99 FL (80-99) Mean Corpuscular Hemoglobin 33.7 PG (27.0-31.0) H Mean Corpuscular Hemoglobin Concent 33.9 G/DL (32.0-36.0) Red Cell Distribution Width 13.3 % (11.6-14.8) Platelet Count 414 K/UL (150-450) Mean Platelet Volume 6.8 FL (6.5-10.1) Neutrophils (%) (Auto) 76.9 % (45.0-75.0) H Lymphocytes (%) (Auto) 10.8 % (20.0-45.0) L Monocytes (%) (Auto) 7.5 % (1.0-10.0) Eosinophils (%) (Auto) 4.1 % (0.0-3.0) H Basophils (%) (Auto) 0.7 % (0.0-2.0) Sodium Level 140 MMOL/L (136-145) Potassium Level 3.8 MMOL/L (3.5-5.1) Chloride Level 106 MMOL/L (98-107) Carbon Dioxide Level 27 MMOL/L (21-32) Anion Gap 7 mmol/L (5-15) Blood Urea Nitrogen 17 mg/dL (7-18) Creatinine 1.4 MG/DL (0.55-1.30) H Estimat Glomerular Filtration Rate 51.2 mL/min (>60) Glucose Level 112 MG/DL (74-106) H Calcium Level 8.4 MG/DL (8.5-10.1) L Total Bilirubin 0.4 MG/DL (0.2-1.0) Aspartate Amino Transf (AST/SGOT) 59 U/L (15-37) H Alanine Aminotransferase (ALT/SGPT) 80 U/L (12-78) H Alkaline Phosphatase 87 U/L (46-116) Total Protein 7.5 G/DL (6.4-8.2) Albumin 2.0 G/DL (3.4-5.0) L Globulin 5.5 g/dL Albumin/Globulin Ratio 0.4 (1.0-2.7) L Amylase Level 107 U/L (25-115) Lipase 630 U/L (73-393) H Objective HEENT: normocephalic, atraumatic, anicteric, PERRL, dry mucous membrane Neck: no JVD, no carotid bruit. Respiratory/Chest: chest wall non-tender, lungs clear, normal breath sounds, no respiratory distress, no accessory muscle use Cardiovascular/Chest: Normal S1S2, no murmurs, gallops or rubs, rate,regular rhythm, tachycardic. Abdomen: normal bowel sounds, soft, no organomegaly, no mass, other - mild epigastric ttp Extremities: normal range of motion, non-tender, normal inspection, no calf tenderness, normal capillary refill, non-pitting Skin Exam: normal pigmentation, warm/dry Neurologic: no motor/sensory deficits, alert, oriented x 3, responsive, normal mood/affect Luis Patel MD Aug 04, 2018 21:37
[2018-08-05] VITALS: BP 95/62
[2018-08-05 04:00] VITALS: BP 93/64
[2018-08-05] MEDS: NovoLOG Insulin Flexpen SUBQ SCH ×4 (06:00→17:38)
[2018-08-05] MEDS: Metoclopramide 10mg/10ml Liq GT SCH ×3 (06:41→21:49)
--- NOTE | 2018-08-05 07:35 | NUR ---
NURSE NOTES: Hand off given to JAVIER Michael. Pt is alert and responds to verbal command. Pt breathing on room air and vitals are stable. Bed in lowest position with call light within reach.
--- NOTE | 2018-08-05 07:35 | NUR ---
NURSE NOTES: Received report from Holden RN / Venkatesh RN. Pt is awake, alert, oriented x2, at bedside. GT in place, infusing Osmolyte 1.2 at 60ml/hour, tolerating well with no reports of nausea/vomiting/abdominal discomfort. Denies pain, is on room air with no respiratory distress. Serrano Catheter in place, draining dark yellow/clear urine. JUNE drain on RUQ, with small amount of dark seronginous output. Left upper arm double lumen PICC in place, patent/intact, dressing changed on 08/01. Pt is on P200 mattress. Uses bedpan for BMs. Call light is within easy reach, bed in lowest position, three side rails up, brakes engaged. Heart rhythm is stable today at R. Will continue to monitor pt, and follow plan of care per MD orders and protocol.
--- NOTE | 2018-08-05 07:52 | General Progress Note ---
Assessment/Plan Problem List: (1) Cholecystitis, acute ICD Codes: K81.0 - Acute cholecystitis SNOMED: 74817866 (2) Abnormal LFTs ICD Codes: R79.89 - Other specified abnormal findings of blood chemistry SNOMED: 546928774 (3) Fatty liver ICD Codes: K76.0 - Fatty (change of) liver, not elsewhere classified SNOMED: 967561897 (4) PEG (percutaneous endoscopic gastrostomy) status ICD Codes: Z93.1 - Gastrostomy status SNOMED: 261530610, 635542186 (5) S/P cholecystectomy ICD Codes: Z90.49 - Acquired absence of other specified parts of digestive tract SNOMED: 52312709, 26171628, 604610895 (6) Paroxysmal atrial fibrillation with rapid ventricular response ICD Codes: I48.0 - Paroxysmal atrial fibrillation SNOMED: 254663288, 759713014040742 (7) Pneumonia ICD Codes: J18.9 - Pneumonia, unspecified organism SNOMED: 464325967 (8) Hepatitis C ICD Codes: B19.20 - Unspecified viral hepatitis C without hepatic coma SNOMED: 70917832 Assessment/Plan CT reviewed continue GTF will need ERCP and stent removal in 8 weeks Subjective ROS Limited/Unobtainable: No Allergies: Coded Allergies: No Known Allergies (Unverified , 06/01/16) Subjective abd pain Objective Last 24 Hour Vital Signs Date Time Temp Pulse Resp B/P (MAP) Pulse Ox O2 Delivery O2 Flow Rate FiO2 08/05/18 04:00 97.3 86 93/64 (74) 08/05/18 04:00 86 08/05/18 00:00 90 08/05/18 00:00 97.7 86 20 95/62 (73) 95 08/04/18 21:00 Room Air 08/04/18 20:00 90 08/04/18 16:00 97.9 82 18 92/59 (70) 95 08/04/18 16:00 86 08/04/18 12:00 75 08/04/18 12:00 97.3 77 19 87/54 (65) 96 08/04/18 10:08 126 08/04/18 09:06 120 94/62 08/04/18 09:00 Room Air 08/04/18 08:00 97.6 120 20 94/62 (73) 95 08/04/18 08:00 143 Intake and Output 08/04/18 08/05/18 19:00 07:00 Intake Total 1200 ml Output Total 800 ml 5 ml Balance -800 ml 1195 ml Free Water 600 ml Tube Feeding 600 ml Output Urine Total 800 ml Drainage Total 5 ml # Bowel Movements 1 1 Height (Feet): 5 Height (Inches): 8.00 Weight (Pounds): 159 General Appearance: no apparent distress EENT: normal ENT inspection Neck: supple Cardiovascular: normal rate Respiratory/Chest: decreased breath sounds Abdomen: normal bowel sounds, non tender, soft Extremities: non-tender Toñito Yip MD Aug 05, 2018 07:52
[2018-08-05 08:00] VITALS: BP 103/61
--- NOTE | 2018-08-05 08:03 | General Progress Note ---
Assessment/Plan Assessment/Plan #Sepsis #Acute purulent gangrenous cholecystitis. #klebsiella cholecystitis #acute Hypoxic respiratory failure #Acute Metabolic Encephalopathy - due to alcohol withdrawal and sepsis - meropenem, Diflucan - bcx x 2 ngtd - s/p ercp 07/12 - gen surg following s/p lap jocelyn converted to open jocelyn 07/12 - extubated on 07/16/18 - off o2 ncl - pulm following appreciated - pain control - appreciate surg recs - tpn -NG tube removed -s/p PEG -CT A/P pending today #Acute Blood Loss Anemia - due to recent surgery - no overt bleeding noted currently - hgb 6.8 07/15, transfused 2U, 9.7 (07/16) - stable #Pleural Effusions - b/l - per mrcp - stable - pulm consult appreciated #Alcohol Pancreatitis #Intractable abdominal pain #intractable nausea/vomiting #Transaminitis #Alcohol Hepatitis #Alcohol withdrawals #Fatty Liver Disease #Hepatitis C - LFTs 446/532 - Lipase 687 - due to alcohol abuse - INR 1.0 - discriminant function, 4.5 , no need for steroids - US abd completed and reviewed, showing fatty liver disease. GS present, no obstruction noted - ppi - PRN antiemetics, zofran prn - Per GI, will need ERCP in 6-8 weeks for stent removal #Failure to thrive - due to alcohol withdrawals and the above - alcoholic pancreatitis - fluids #Alcohol Abuse - educated on cessation for 15 mins - patient states he understands and will try to quit - RN notified to monitor carefully with withdrawals - prn ativan - ciwa #Uncontrolled HTN and tachycardia overnight -all oral BP meds held for now -continue metoprolol IV q6h -transferred to ICU, on amiodarone drip #Tobacco abuse - smokes 1ppd - educated on smoking cessation for over 15 mins, states he understands the risks of smoking and will try to quit #Dysphagia -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 I spent 43 minutes on this patient's case, and 31 minutes were dedicated to counseling and/or care coordination. Discussed with patient/family, nursing staff, SW/CM, [] regarding clinical status, treatment course, and disposition planning. Time of note may not reflect time of encounter. Subjective Date patient seen: Aug 05, 2018 Allergies: Coded Allergies: No Known Allergies (Unverified , 06/01/16) Subjective Medicine follow up for multiple medical problems including acute gangrenous cholecystitis, acute hypoxic respiratory failure, acute encephalopathy doing well stable no acute events overnight ROS: 14 point ROS reviewed and negative except per above Objective Last 24 Hour Vital Signs Date Time Temp Pulse Resp B/P (MAP) Pulse Ox O2 Delivery O2 Flow Rate FiO2 08/05/18 04:00 97.3 86 93/64 (74) 08/05/18 04:00 86 08/05/18 00:00 90 08/05/18 00:00 97.7 86 20 95/62 (73) 95 08/04/18 21:00 Room Air 08/04/18 20:00 90 08/04/18 16:00 97.9 82 18 92/59 (70) 95 08/04/18 16:00 86 08/04/18 12:00 75 08/04/18 12:00 97.3 77 19 87/54 (65) 96 08/04/18 10:08 126 08/04/18 09:06 120 94/62 08/04/18 09:00 Room Air Intake and Output 08/04/18 08/05/18 19:00 07:00 Intake Total 1200 ml Output Total 800 ml 5 ml Balance -800 ml 1195 ml Free Water 600 ml Tube Feeding 600 ml Output Urine Total 800 ml Drainage Total 5 ml # Bowel Movements 1 1 Height (Feet): 5 Height (Inches): 8.00 Weight (Pounds): 159 Objective General Appearance: alert, stable, awake Lines, tubes and drains: peripheral HEENT: normocephalic, atraumatic, anicteric, PERRL Neck: non-tender, normal alignment Respiratory/Chest: chest wall non-tender, mechanical breath sounds, no respiratory distress, no accessory muscle use Cardiovascular/Chest: normal peripheral pulses, normal rate, regular rhythm Abdomen: normal bowel sounds, soft, no organomegaly, no mass, drain in place, Extremities: normal range of motion, non-tender, normal inspection, no calf tenderness, normal capillary refill, non-pitting. +asterixis Skin Exam: normal pigmentation, warm/dry Neurologic: no motor/sensory deficits, alert, oriented x 3, responsive, normal mood/affect Eulogio Siddiqi MD Aug 05, 2018 08:03
[2018-08-05] MEDS: Pantoprazole Inj IVP SCH ×2 (09:20→20:23)
[2018-08-05] MEDS: Propranolol 40mg tab GT SCH ×2 (09:21→17:38)
[2018-08-05] MEDS: Heparin 5000 units/ml inj SUBQ SCH ×2 (09:22→20:24)
--- NOTE | 2018-08-05 09:40 | Diagnostic Imaging Report ---
EXAM: XR Chest, 1 View CLINICAL HISTORY: INFECT TECHNIQUE: Frontal view of the chest. COMPARISON: Chest x-ray dated 08/01/18, 07/26/18, 07/15/18 FINDINGS: Lungs: Persistent patchy infiltrate at the periphery of the right mid and upper lung, not significantly changed compared to the prior exam. Mildly increased interstitial markings, unchanged. Pleural space: Unremarkable. The costophrenic angles are sharp. No visible pneumothorax. Heart: Unremarkable. No cardiomegaly. Mediastinum: Unremarkable. Bones/joints: Unremarkable. Tubes, lines and devices: EKG leads overlie the thorax. Left arm PICC with catheter tip in the region of the right atrium. Upper abdomen: Radiodense clips overlie the midepigastric region. IMPRESSION: No significant change in the patchy infiltrate at the periphery of the right mid and upper lung compared to the prior exam.
[2018-08-05 12:00] VITALS: BP 94/66
--- NOTE | 2018-08-05 13:17 | Infectious Diseases Prog Note ---
Assessment/Plan Assessment/Plan ASSESSMENT AND PLAN: 1. sepsis, klebsiella cholecystitis, s/p cholecystectomy, enterobacter pna, elevated lft's/lipase, pancreatitis, leukocytosis, fevers, sirs, jaqueline - levofloxacin and flagyl x 5 days - monitor labs and chest x-ray - CT A/P noted 3. Smoking use. 4. Anemia. 5. Thrombocytosis. 6. No history of diabetes, hypertension, but he is on Norvasc. 7. No known allergies. 8. Social history positive for smoking and alcohol use. No history of intravenous drug abuse. 9. MAR was noted. 10. Case discussed with RN. 11. Continue treatment per primary consultants. 12. Case discussed at length the ICU nurse, the patient currently in ICU. 13. Continue skin care protocol and pulmonary treatments for now. Subjective Constitutional: Denies: fever HEENT: Denies: congestion Respiratory: Denies: shortness of breath Cardiovascular: Denies: chest pain Gastrointestinal/Abdominal: Denies: nausea, vomiting, diarrhea Genitourinary: Reports: other - + melchor Neurologic: Denies: headache Psychiatric: Denies: depression Skin: Denies: rash Hematologic: Denies: bleeding Musculoskeletal: Denies: pain Allergies: Coded Allergies: No Known Allergies (Unverified , 06/01/16) Objective Vital Signs Last 24 Hour Vital Signs Date Time Temp Pulse Resp B/P (MAP) Pulse Ox O2 Delivery O2 Flow Rate FiO2 08/05/18 09:21 94 103/61 08/05/18 09:00 Room Air 08/05/18 08:07 94 Room Air 21 08/05/18 08:07 Room Air 21 08/05/18 08:00 90 08/05/18 08:00 98.0 94 17 103/61 (75) 96 08/05/18 04:00 97.3 86 93/64 (74) 08/05/18 04:00 86 08/05/18 00:00 90 08/05/18 00:00 97.7 86 20 95/62 (73) 95 08/04/18 21:00 Room Air 08/04/18 20:00 90 08/04/18 16:00 97.9 82 18 92/59 (70) 95 08/04/18 16:00 86 Height (Feet): 5 Height (Inches): 8.00 Weight (Pounds): 159 General Appearance: no acute distress HEENT: normocephalic, atraumatic, anicteric, mucous membranes moist Respiratory/Chest: no accessory muscle use, crackles/rales - few , rhonchi - bilaterally - few Cardiovascular: normal rate, regular rhythm, no gallop/murmur, no JVD Abdomen: normal bowel sounds, soft, non tender, no organomegaly, distended Genitourinary: other - + melchor - urine clear Extremities: no cyanosis Skin: no rash 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 Apparent elevation of the right hemidiaphragm is again noted. The left lung demonstrates a very faint opacity in the left midlung which is not evident previously. However, interstitial congestion in the left lung has improved. Impression: Persistent right-sided pleural effusion and fairly extensive parenchymal infiltrate or edema Improved left lung interstitial congestion. Focal patchy left lung abnormality was not evident previously, however, and could represent a small area of infiltrate Chest x-ray - 07/22/18 - COMPARISON: Chest x-ray 07/19/18 837 FINDINGS: Lungs: Increasing opacities of the right lung. Pleural space: Slightly increasing right pleural effusion. No pneumothorax. Heart: Unremarkable. No cardiomegaly. Mediastinum: Unremarkable. Bones/joints: Unremarkable. Tubes, lines and devices: Left PICC line tip appears further advanced into the right atrium. NG tube traverses diaphragm, tip is not seen. Upper abdomen: Midepigastric gastric surgical clips. IMPRESSION: 1. Left PICC line tip appears further advanced into the right atrium. 2. Increasing opacities of the right lung. 3. Slightly increasing right pleural effusion. 07/24/18 - chest x-ray - A single view chest radiograph was obtained. Findings: Hazy opacity at the right lung base may be a pleural effusion. Heart is enlarged. There is suggestion of mild interstitial edema. PICC line is present on the left. IMPRESSION: Suspected mild interstitial edema and a small right pleural effusion. Chest x-ray - 07/27/18- Comparison: 07/26/2018 A single view chest radiograph was obtained. Findings: Patchy infiltrate noted in the right lung. There is less right pleural effusion present. Heart is mildly enlarged. PICC line is noted. IMPRESSION: Diminished right pleural effusion which may have 5 decreased or shifted. Patchy right basal and perihilar infiltrate noted Chest x-ray - 07/30/18 Comparison: 07/30/2018 Findings: Interim resolution of previously demonstrated right pleural effusion, postthoracentesis. Hazy infiltrates are seen throughout the right mid and lower lung. The left lung and pleural space remain clear. Left arm PICC remains. Impression: Resolved right pleural effusion, post thoracentesis. No radiographically evident complication Persistent right mid and lower lung infiltrates Chest x-ray - 08/01/18 - Findings: Interim improvement of previously demonstrated right mid and lower lung parenchymal opacity, with some residual. There is a small amount of pleural fluid on the right, slightly increased from the prior exam. Left lung and pleural space are largely clear, without definite findings corresponding to the findings described on recent CT scan. The heart size is normal. Left arm PICC remains. Postsurgical changes of the upper abdomen are again noted. Right hemidiaphragm remains slightly elevated Impression: Improving but persistent right lung infiltrate, over 2 days. Other stable findings as described CT abdomen and pelvis: IMPRESSION: Status post cholecystectomy. Complex 13 x 5 x 13.7 cm mixed attenuation collection in and extending from the gallbladder fossa. Given the presence of high attenuation elements, this most likely represents a postoperative hematoma. Infected collections not completely excludable, particularly in view of the presence of some rim enhancement Endobiliary stent in good position. No biliary ductal dilatation Atelectasis of a significant portion of the right lower lobe. However, volume loss is significantly improved from 07/10/2018 Fairly extensive infiltrates in the right lower lobe, with less extensive infiltrates in the right middle lobe, right upper lobe, and left upper lobe. There may be a component of chronic fibrosis within the right lower lobe opacities as well PICC in good position Trace right pleural effusion Gastrostomy in good position 08/05/18 - chest x-ray - COMPARISON: Chest x-ray dated 08/01/18, 07/26/18, 07/15/18 FINDINGS: Lungs: Persistent patchy infiltrate at the periphery of the right mid and upper lung, not significantly changed compared to the prior exam. Mildly increased interstitial markings, unchanged. Pleural space: Unremarkable. The costophrenic angles are sharp. No visible pneumothorax. Heart: Unremarkable. No cardiomegaly. Mediastinum: Unremarkable. Bones/joints: Unremarkable. Tubes, lines and devices: EKG leads overlie the thorax. Left arm PICC with catheter tip in the region of the right atrium. Upper abdomen: Radiodense clips overlie the midepigastric region. IMPRESSION: No significant change in the patchy infiltrate at the periphery of the right mid and upper lung compared to the prior exam. Microbiology Date/Time Source Procedure Growth Status 07/30/18 21:15 Blood Blood Culture - Final NO GROWTH AFTER 5 DAYS Complete 07/12/18 20:50 Peritoneal Fluid Gram Stain - Final Complete 07/12/18 20:50 Peritoneal Fluid Aerobic Culture - Final NO GROWTH Complete 07/12/18 20:50 Peritoneal Fluid Anaerobic Culture - Final NO GROWTH AFTER 5 DAYS Complete 07/21/18 14:45 Sputum Induced Gram Stain - Final Complete 07/21/18 14:45 Sputum Culture - Final Nery Albicans Usual Respiratory Carolyn Complete 07/30/18 22:00 External Cath Urine Culture - Final NO GROWTH AFTER 48 HOURS Complete Labs Test 08/02/18 19:50 08/03/18 04:30 08/04/18 07:30 Vancomycin Level Trough 31.8 ug/mL (5.0-12.0) White Blood Count 15.0 K/UL (4.8-10.8) 13.7 K/UL (4.8-10.8) Red Blood Count 3.66 M/UL (4.70-6.10) 3.77 M/UL (4.70-6.10) Hemoglobin 12.5 G/DL (14.2-18.0) 12.7 G/DL (14.2-18.0) Hematocrit 36.1 % (42.0-52.0) 37.4 % (42.0-52.0) Mean Corpuscular Volume 99 FL (80-99) 99 FL (80-99) Mean Corpuscular Hemoglobin 34.1 PG (27.0-31.0) 33.7 PG (27.0-31.0) Mean Corpuscular Hemoglobin Concent 34.5 G/DL (32.0-36.0) 33.9 G/DL (32.0-36.0) Red Cell Distribution Width 13.0 % (11.6-14.8) 13.3 % (11.6-14.8) Platelet Count 440 K/UL (150-450) 414 K/UL (150-450) Mean Platelet Volume 7.1 FL (6.5-10.1) 6.8 FL (6.5-10.1) Neutrophils (%) (Auto) 78.6 % (45.0-75.0) 76.9 % (45.0-75.0) Lymphocytes (%) (Auto) 10.8 % (20.0-45.0) 10.8 % (20.0-45.0) Monocytes (%) (Auto) 5.3 % (1.0-10.0) 7.5 % (1.0-10.0) Eosinophils (%) (Auto) 4.7 % (0.0-3.0) 4.1 % (0.0-3.0) Basophils (%) (Auto) 0.7 % (0.0-2.0) 0.7 % (0.0-2.0) Sodium Level 141 MMOL/L (136-145) 140 MMOL/L (136-145) Potassium Level 3.7 MMOL/L (3.5-5.1) 3.8 MMOL/L (3.5-5.1) Chloride Level 106 MMOL/L (98-107) 106 MMOL/L (98-107) Carbon Dioxide Level 27 MMOL/L (21-32) 27 MMOL/L (21-32) Anion Gap 8 mmol/L (5-15) 7 mmol/L (5-15) Blood Urea Nitrogen 17 mg/dL (7-18) 17 mg/dL (7-18) Creatinine 1.4 MG/DL (0.55-1.30) 1.4 MG/DL (0.55-1.30) Estimat Glomerular Filtration Rate 51.2 mL/min (>60) 51.2 mL/min (>60) Glucose Level 104 MG/DL (74-106) 112 MG/DL (74-106) Calcium Level 8.9 MG/DL (8.5-10.1) 8.4 MG/DL (8.5-10.1) Total Bilirubin 0.4 MG/DL (0.2-1.0) Aspartate Amino Transf (AST/SGOT) 59 U/L (15-37) Alanine Aminotransferase (ALT/SGPT) 80 U/L (12-78) Alkaline Phosphatase 87 U/L (46-116) Total Protein 7.5 G/DL (6.4-8.2) Albumin 2.0 G/DL (3.4-5.0) Globulin 5.5 g/dL Albumin/Globulin Ratio 0.4 (1.0-2.7) Amylase Level 107 U/L (25-115) Lipase 630 U/L (73-393) Current Medications Medications (Trade) Dose Ordered Sig/Umkesh Route PRN Reason Start Time Stop Time Status Last Admin Dose Admin Acetaminophen (Tylenol) 650 mg Q4H PRN RECTAL Prn for Temp >100.5 07/28/18 21:05 08/14/18 21:04 08/03/18 06:26 Al Hydroxide/Mg Hydroxide (Mylanta) 15 ml Q6H PRN NG DYSPEPSIA 07/28/18 21:05 08/27/18 21:04 Chlorhexidine Gluconate (Estrella-Hex 2%) 1 applic DAILY@2000 TOPIC 07/29/18 20:00 08/15/18 19:59 08/04/18 20:45 Dextrose (Dextrose 50%) 25 ml Q30M PRN IV Hypoglycemia 07/28/18 21:05 08/17/18 21:04 Dextrose (Dextrose 50%) 50 ml Q30M PRN IV hypoglycemia 07/28/18 21:05 08/17/18 21:04 Diphenhydramine HCl (Benadryl) 12.5 mg Q6H PRN IVP Itching/Pruritis 07/28/18 21:05 08/27/18 21:04 Haloperidol Lactate (Haldol) 5 mg Q6H PRN IM Agitation 08/03/18 14:30 09/02/18 14:29 Heparin Sodium (Porcine) (Heparin 5000 units/ml) 5,000 units EVERY 12 HOURS SUBQ 08/03/18 09:00 09/02/18 08:59 08/05/18 09:22 Insulin Aspart (NovoLOG) No Dose Q6HR SUBQ 07/29/18 00:00 08/17/18 12:59 08/04/18 12:43 Levofloxacin 100 ml @ 100 mls/hr Q24H IVPB 08/03/18 20:00 08/10/18 19:59 08/04/18 20:44 Magnesium Hydroxide (Mom) 30 ml BIDPRN PRN NG Constipation 07/28/18 21:05 08/27/18 21:04 Metoclopramide HCl (Reglan) 5 mg EVERY 8 HOURS GT 08/01/18 14:00 08/31/18 13:59 08/05/18 06:41 Metronidazole 100 ml @ 100 mls/hr Q8HR IVPB 08/03/18 22:00 08/10/18 21:59 08/05/18 06:42 Nicotine (Nicoderm) 1 patch Q24H TDERMAL 07/29/18 18:00 08/08/18 17:59 08/04/18 17:52 Ondansetron HCl (Zofran) 4 mg Q6H PRN IVP Nausea & Vomiting 07/28/18 21:05 08/27/18 21:04 Pantoprazole (Protonix) 40 mg EVERY 12 HOURS IVP 07/29/18 09:00 08/28/18 08:59 08/05/18 09:20 Propranolol HCl (Inderal) 80 mg BID GT 08/02/18 09:00 08/27/18 11:59 08/05/18 09:21 Tyler Madsen MD Aug 05, 2018 13:17
--- NOTE | 2018-08-05 14:54 | Pulmonology Progress Note ---
Assessment/Plan Assessment/Plan Pulmonary Progress Note Assessment/Plan Assessment/Plan Problems: (1) Cholecystitis, acute (2) Alcoholic pancreatitis (3) Pancreatitis, acute (4) Alcohol abuse (5) Abnormal LFTs (6) Gangrenous cholecystitis (7) Respiratory disorder with ventilator dependence Assessment & Plan: Stable over night, no new complaints. CXR noted, stable infiltartes (8) Blood loss anemia (9) Pneumonia (10) Hepatitis C (11) Fatty liver Assessment/Plan ? pleural fluid studies, ? still pending Optimize pulmonary hygiene/mobilize as tolerated PRN O2 PRN ATROVENT HHN's Abx (Jair) per ID, F/U Cx's and monitor WCt GTF's GI & surgery recs Montor volumes and renal function DVT Px: Hep SQ FC Subjective Allergies: Coded Allergies: No Known Allergies (Unverified , 06/01/16) Subjective Seen earlier AFVSS on RA WCt 16 Carlos TFs, denies cough/congestion/SOB/wheezing, no FC Vital Signs Noted General Appearance: WD/WN, no acute distress HEENT: normocephalic, atraumatic, anicteric, mucous membranes moist Respiratory/Chest: chest wall non-tender, lungs clear, normal breath sounds, no respiratory distress, no accessory muscle use Cardiovascular: normal peripheral pulses, normal rate, regular rhythm Abdomen: normal bowel sounds, soft, non tender, no organomegaly, non distended , other - GT, dressed Extremities: no cyanosis, no clubbing, no edema Microbiology Date/Time Source Procedure Growth Status 07/30/18 22:00 External Cath Urine Culture - Final NO GROWTH AFTER 48 HOURS Complete Laboratory Tests 08/02/18 04:30: White Blood Count 15.9H, Red Blood Count 4.03L, Hemoglobin 13.7#L, Hematocrit 39.8L, Mean Corpuscular Volume 99, Mean Corpuscular Hemoglobin 33.9H, Mean Corpuscular Hemoglobin Concent 34.4, Red Cell Distribution Width 13.0, Platelet Count 573H, Mean Platelet Volume 6.8, Neutrophils (%) (Auto) 75.8H, Lymphocytes (%) (Auto) 13.4L, Monocytes (%) (Auto) 4.5, Eosinophils (%) (Auto) 5.5H, Basophils (%) (Auto) 0.9, Sodium Level 140, Potassium Level 4.3#, Chloride Level 106, Carbon Dioxide Level 28, Anion Gap 7, Blood Urea Nitrogen 19H, Creatinine 1.0#, Estimat Glomerular Filtration Rate > 60, Glucose Level 112H, Calcium Level 9.3# 08/02/18 19:50: Vancomycin Level Trough 31.8H Current Medications Medications (Trade) Dose Ordered Sig/Mukesh Route PRN Reason Start Time Stop Time Status Last Admin Dose Admin Acetaminophen (Tylenol) 650 mg Q4H PRN RECTAL Prn for Temp >100.5 07/28/18 21:05 08/14/18 21:04 Al Hydroxide/Mg Hydroxide (Mylanta) 15 ml Q6H PRN NG DYSPEPSIA 07/28/18 21:05 08/27/18 21:04 Chlorhexidine Gluconate (Estrella-Hex 2%) 1 applic DAILY@2000 TOPIC 07/29/18 20:00 08/15/18 19:59 08/02/18 20:41 Dextrose (Dextrose 50%) 25 ml Q30M PRN IV Hypoglycemia 07/28/18 21:05 08/17/18 21:04 Dextrose (Dextrose 50%) 50 ml Q30M PRN IV hypoglycemia 07/28/18 21:05 08/17/18 21:04 Diphenhydramine HCl (Benadryl) 12.5 mg Q6H PRN IVP Itching/Pruritis 07/28/18 21:05 08/27/18 21:04 Insulin Aspart (NovoLOG) No Dose Q6HR SUBQ 07/29/18 00:00 08/17/18 12:59 08/02/18 05:16 Magnesium Hydroxide (Mom) 30 ml BIDPRN PRN NG Constipation 07/28/18 21:05 08/27/18 21:04 Meropenem 1 gm/ Sodium Chloride 100 ml @ 200 mls/hr Q8HR IVPB 08/01/18 22:00 08/06/18 05:59 08/02/18 14:02 Metoclopramide HCl (Reglan) 5 mg EVERY 8 HOURS GT 08/01/18 14:00 08/31/18 13:59 08/02/18 14:01 Nicotine (Nicoderm) 1 patch Q24H TDERMAL 07/29/18 18:00 08/08/18 17:59 08/01/18 17:30 Ondansetron HCl (Zofran) 4 mg Q6H PRN IVP Nausea & Vomiting 07/28/18 21:05 08/27/18 21:04 Pantoprazole (Protonix) 40 mg EVERY 12 HOURS IVP 07/29/18 09:00 08/28/18 08:59 08/02/18 20:41 Propranolol HCl (Inderal) 80 mg BID GT 08/02/18 09:00 08/27/18 11:59 08/02/18 19:52 Vancomycin HCl (Vanco rx to dose) 1 ea DAILY PRN MISC Per rx protocol 07/30/18 18:15 08/29/18 18:14 Subjective ROS Limited/Unobtainable: No Allergies: Coded Allergies: No Known Allergies (Unverified , 06/01/16) Objective Last 24 Hour Vital Signs Date Time Temp Pulse Resp B/P (MAP) Pulse Ox O2 Delivery O2 Flow Rate FiO2 08/05/18 12:00 82 08/05/18 12:00 97.7 75 18 94/66 (75) 95 08/05/18 09:21 94 103/61 08/05/18 09:00 Room Air 08/05/18 08:07 94 Room Air 21 08/05/18 08:07 Room Air 21 08/05/18 08:00 90 08/05/18 08:00 98.0 94 17 103/61 (75) 96 08/05/18 04:00 97.3 86 93/64 (74) 08/05/18 04:00 86 08/05/18 00:00 90 08/05/18 00:00 97.7 86 20 95/62 (73) 95 08/04/18 21:00 Room Air 08/04/18 20:00 90 08/04/18 16:00 97.9 82 18 92/59 (70) 95 08/04/18 16:00 86 Intake and Output 08/04/18 08/05/18 18:59 06:59 Intake Total 1200 ml Output Total 800 ml 5 ml Balance -800 ml 1195 ml Free Water 600 ml Tube Feeding 600 ml Output Urine Total 800 ml Drainage Total 5 ml # Bowel Movements 1 1 Current Medications Medications (Trade) Dose Ordered Sig/Mukesh Route PRN Reason Start Time Stop Time Status Last Admin Dose Admin Acetaminophen (Tylenol) 650 mg Q4H PRN RECTAL Prn for Temp >100.5 07/28/18 21:05 08/14/18 21:04 08/03/18 06:26 Al Hydroxide/Mg Hydroxide (Mylanta) 15 ml Q6H PRN NG DYSPEPSIA 07/28/18 21:05 08/27/18 21:04 Chlorhexidine Gluconate (Estrella-Hex 2%) 1 applic DAILY@2000 TOPIC 07/29/18 20:00 08/15/18 19:59 08/04/18 20:45 Dextrose (Dextrose 50%) 25 ml Q30M PRN IV Hypoglycemia 07/28/18 21:05 08/17/18 21:04 Dextrose (Dextrose 50%) 50 ml Q30M PRN IV hypoglycemia 07/28/18 21:05 08/17/18 21:04 Diphenhydramine HCl (Benadryl) 12.5 mg Q6H PRN IVP Itching/Pruritis 07/28/18 21:05 08/27/18 21:04 Haloperidol Lactate (Haldol) 5 mg Q6H PRN IM Agitation 08/03/18 14:30 09/02/18 14:29 Heparin Sodium (Porcine) (Heparin 5000 units/ml) 5,000 units EVERY 12 HOURS SUBQ 08/03/18 09:00 09/02/18 08:59 08/05/18 09:22 Insulin Aspart (NovoLOG) No Dose Q6HR SUBQ 07/29/18 00:00 08/17/18 12:59 08/04/18 12:43 Levofloxacin 100 ml @ 100 mls/hr Q24H IVPB 08/03/18 20:00 08/10/18 19:59 08/04/18 20:44 Magnesium Hydroxide (Mom) 30 ml BIDPRN PRN NG Constipation 07/28/18 21:05 08/27/18 21:04 Metoclopramide HCl (Reglan) 5 mg EVERY 8 HOURS GT 08/01/18 14:00 08/31/18 13:59 08/05/18 06:41 Metronidazole 100 ml @ 100 mls/hr Q8HR IVPB 08/03/18 22:00 08/10/18 21:59 08/05/18 06:42 Nicotine (Nicoderm) 1 patch Q24H TDERMAL 07/29/18 18:00 2/20/19 17:59 08/04/18 17:52 Ondansetron HCl (Zofran) 4 mg Q6H PRN IVP Nausea & Vomiting 07/28/18 21:05 08/27/18 21:04 Pantoprazole (Protonix) 40 mg EVERY 12 HOURS IVP 07/29/18 09:00 08/28/18 08:59 08/05/18 09:20 Propranolol HCl (Inderal) 80 mg BID GT 08/02/18 09:00 08/27/18 11:59 08/05/18 09:21 Parker Borjas MD Aug 05, 2018 14:54
[2018-08-05 16:00] VITALS: BP 104/69
--- NOTE | 2018-08-05 16:27 | Cardiology Report ---
APPROVED REPORT EKG Measurement Heart [id number] MT 136P [id number] possible junctional tachycardia wiht retrograde p wave Nonspecific intraventricular block Cannot rule out Septal infarct, age undetermined Abnormal ECG
--- NOTE | 2018-08-05 18:50 | General Progress Note ---
Assessment/Plan Assessment/Plan # Anemia of chronic disease due to underlying chronic medical issues, multifactorial, pancreatitis --> Anemia workup has been reviewed --> No evidence of hemolysis is noted, peripheral smear has been reviewed. --> Hgb goal >7. Transfuse prn. --> Epogen or iron at this time is not particularly indicated --> Medications have been reviewed # Thrombocytopenia is likely related to underlying reactive process from pancreatitis, acute, as well as alcoholic intoxication and myelosuppression --> also patient has a history of hepatitis C from prior admission --> smear has been reviewed --> heparin sq is okay if needed for dvt ppx # Erythrocytosis is likely related to dehydration --> hgb goal >7, no evidence of bleeding currently --> given ivf already # Leukocytosis no e/o annie infection --> could be due to reactive process v cholecystitis --> wbc trend: 22-->18-->16-->14-->18-->19-->15-->14 --> peripheral smear has been reviewed --> ercp repeat in 6-8 weeks, stent was placed # Pancreatitis with alcohol abuse --> recommend etoh cessation --> amylase and lipase prn --> Status post ERCP with sphincterotomy + stent placement # Transaminitis --> likely related to etoh abuse --> in past seen by gi # Alcohol abuse -- recommend cessation # PEG inserted left lower quadrant The timing of this note does not necessarily reflect the time of the patient was seen. Greatly appreciate consultation! Subjective Constitutional: Denies: no symptoms, chills, diaphoresis, fever, malaise, weakness, other HEENT: Denies: no symptoms, eye pain, blurred vision, tearing, double vision, ear pain, ear discharge, nose pain, nose congestion, throat pain, throat swelling, mouth pain, mouth swelling, other Cardiovascular: Denies: no symptoms, chest pain, edema, irregular heart rate, lightheadedness, palpitations, syncope, other Respiratory: Denies: no symptoms, cough, orthopnea, shortness of breath, SOB with excertion, SOB at rest, sputum, stridor, wheezing, other Gastrointestinal/Abdominal: Denies: no symptoms, abdomen distended, abdominal pain, black stools, tarry stools, blood in stool, constipated, diarrhea, difficulty swallowing, nausea, poor appetite, poor fluid intake, rectal bleeding , vomiting, other Genitourinary: Denies: no symptoms, burning, discharge, frequency, flank pain, hematuria, incontinence, pain, urgency, other Neurologic/Psychiatric: Denies: no symptoms, anxiety, depressed, emotional problems, headache, numbness, paresthesia, pre-existing deficit, seizure, tingling, tremors, weakness, other Endocrine: Denies: no symptoms, excessive sweating, flushing, intolerance to cold, intolerance to heat, increased hunger, increased thirst, increased urine, unexplained weight gain, unexplained weight loss, other Hematologic/Lymphatic: Denies: no symptoms, anemia, easy bleeding, easy bruising, other Allergies: Coded Allergies: No Known Allergies (Unverified , 06/01/16) Subjective 07/05: bp was high today and dc was cancelled until tomorow, on librium 07/06: wbc was high though other counts are better, no f/c 07/10: seen by bedside, heart rate increased, appears agitated, wbc 13.9 07/11: to get ercp tomorrow, surgery and gi following 07/12 ercp, sphincterotomy, stent placement surgery done today, currently having tremors and tachy. wbc 15.9, hgb 14, plt 429 07/13: Pt is intubated, seen by bedside,wbc 22, on abx, no acute distress 07/14: awake and comfortable, still intubated on vent, labs noted hb trending down, wbc 18, hgb 8. 07/16: seen by bedside, awake, comfortable, wbc 14, hgb 9, plt 613 07/17: awake, comfortable, status post ERCP with sphincterotomy wbc 21, hgb 10, plt 689. 07/18; seen by bedside, awake comfortable, on venturi mask, wbc 23, plt 754. 07/19: seen by bedside, awake and comfortable, no events, wbc 21 07/20: now out of the icu, doing better, wbc improved, remains on abx as per ID 07/22: Pt is awake, comfortable, wbc 16, lt 632, on abx 07/23 Pt is awake, comfortable, wbc 15, plt 574, on abx, CXR revelals, Increasing opacities of the right lung and Slightly increasing right pleural effusion 07/24: ng has been removed, seen by other consultants, hgb has improved, no bleeding 07/25: seen by bedside, awake, comfortable, on nasal canula, failed video swallow test and has some PO meds, wbc trending down. 07/26: awake, comfortable, G-tube placement consent signed 07/27: a fib overnignt, in ICU , awake, alert, responsive, PEG inserted today, wbc 19. 07/30: resting in bed awake,alert disoriented on and off,Thoracentesis done, wbc trending up again, Chest x-ray reveals, Resolved right pleural effusion, post thoracentesis. No radiographically evident complication Persistent right mid and lower lung infiltrates. 07/31: seen by bedside, awake, confused, no signs of acute distress. 08/01: Pt is resting in bed, no acute events reported, 08/02: no acute distress at this time, wbc 15, CXR reveals, Improving but persistent right lung infiltrate. 08/03: seen by bedside, awake, comfortable, no acute distress. wbc 15 08/05: on levo and flagyl as per id, no f/c, ct reviewed Objective Last 24 Hour Vital Signs Date Time Temp Pulse Resp B/P (MAP) Pulse Ox O2 Delivery O2 Flow Rate FiO2 08/05/18 17:38 76 104/69 08/05/18 16:00 77 08/05/18 16:00 97.8 104 18 104/69 (81) 95 08/05/18 12:00 82 08/05/18 12:00 97.7 75 18 94/66 (75) 95 08/05/18 09:21 94 103/61 08/05/18 09:00 Room Air 08/05/18 08:07 94 Room Air 21 08/05/18 08:07 Room Air 21 08/05/18 08:00 90 08/05/18 08:00 98.0 94 17 103/61 (75) 96 08/05/18 04:00 97.3 86 93/64 (74) 08/05/18 04:00 86 08/05/18 00:00 90 08/05/18 00:00 97.7 86 20 95/62 (73) 95 08/04/18 21:00 Room Air 08/04/18 20:00 90 Intake and Output 08/04/18 08/05/18 18:59 06:59 Intake Total 1200 ml Output Total 800 ml 5 ml Balance -800 ml 1195 ml Free Water 600 ml Tube Feeding 600 ml Output Urine Total 800 ml Drainage Total 5 ml # Bowel Movements 1 1 Height (Feet): 5 Height (Inches): 8.00 Weight (Pounds): 159 Objective Physical Exam General Appearance: A+O x3, NAD, ++ asterixis HEENT: normocephalic, atraumatic Neck: non-tender, normal alignment Respiratory/Chest: chest wall non-tender, lungs clear Cardiovascular/Chest: normal peripheral pulses, normal rate Abdomen: normal bowel sounds, non tender.++PEG Extremities: normal range of motion Guy Salazar MD Aug 05, 2018 18:50
--- NOTE | 2018-08-05 19:26 | NUR ---
HAND-OFF: Report given to Venkatesh HERRERA. Pt is resting in bed in stable condition. Endorsed plan of care.
--- NOTE | 2018-08-05 19:27 | NUR ---
NURSE NOTES: Pt received from JAVIER Michael. Pt is asleep and awakes easily to sound of name. Bed in lwoest position, call light within reach, and side rails up. Will continue with plan of care.n
[2018-08-05 20:00] VITALS: BP 107/65
[2018-08-05] MEDS: Dyna-Hex 2% Top Sol 2oz TOPIC SCH (20:22)
--- NOTE | 2018-08-05 23:54 | Cardiology Progress Note ---
Assessment/Plan Assessment/Plan 1. Paroxysmal SVT, converted to SR, continue propranolol. 2. Septic shock. 3. PAF, not a suitable candidate for anticoag therapy due to chronic liver disease. 4. Moderate pulmonary HTN. 5. Acute purulent gangrenous cholecystitis due to Klebsiella. 6. Anemia 7. Acute Hypoxic respiratory failure, s/p right thoracentesis. 8. Acute Metabolic Encephalopathy 9. Anemia Subjective Subjective Sinus rhythm at rate of 75. Objective Last 24 Hour Vital Signs Date Time Temp Pulse Resp B/P (MAP) Pulse Ox O2 Delivery O2 Flow Rate FiO2 08/05/18 21:00 Room Air 08/05/18 20:00 97.7 75 20 107/65 (79) 94 08/05/18 20:00 75 08/05/18 17:38 76 104/69 08/05/18 16:00 77 08/05/18 16:00 97.8 104 18 104/69 (81) 95 08/05/18 12:00 82 08/05/18 12:00 97.7 75 18 94/66 (75) 95 08/05/18 09:21 94 103/61 08/05/18 09:00 Room Air 08/05/18 08:07 94 Room Air 21 08/05/18 08:07 Room Air 21 08/05/18 08:00 90 08/05/18 08:00 98.0 94 17 103/61 (75) 96 08/05/18 04:00 97.3 86 93/64 (74) 08/05/18 04:00 86 08/05/18 00:00 90 08/05/18 00:00 97.7 86 20 95/62 (73) 95 Intake and Output 08/04/18 08/05/18 19:00 07:00 Intake Total 1200 ml Output Total 800 ml 5 ml Balance -800 ml 1195 ml Free Water 600 ml Tube Feeding 600 ml Output Urine Total 800 ml Drainage Total 5 ml # Bowel Movements 1 1 2D Echo: LVEF 65%, Mild LVH, RVSP 50 mmHg, Mild MR/MS, Normal LVD Objective HEENT: normocephalic, atraumatic, anicteric, PERRL, dry mucous membrane Neck: no JVD, no carotid bruit. Respiratory/Chest: chest wall non-tender, lungs clear, normal breath sounds, no respiratory distress, no accessory muscle use Cardiovascular/Chest: Normal S1S2, no murmurs, gallops or rubs, rate,regular rhythm, tachycardic. Abdomen: normal bowel sounds, soft, no organomegaly, no mass, other - mild epigastric ttp Extremities: normal range of motion, non-tender, normal inspection, no calf tenderness, normal capillary refill, non-pitting Skin Exam: normal pigmentation, warm/dry Neurologic: no motor/sensory deficits, alert, oriented x 3, responsive, normal mood/affect Luis Patel MD Aug 05, 2018 23:54
[2018-08-06] VITALS: BP 134/67
[2018-08-06] MEDS: NovoLOG Insulin Flexpen SUBQ SCH ×5 (00:02→18:00)
[2018-08-06 04:00] VITALS: BP 121/79
[2018-08-06] MEDS: Metoclopramide 10mg/10ml Liq GT SCH (06:05)
[2018-08-06 06:52] LABS: ALANINE AMINOTRANSFERASE 58 U/L (12-78); ALBUMIN/GLOBULIN RATIO 0.4 (1.0-2.7); ALKALINE PHOSPHATASE 75 U/L (46-116); ANION GAP 6 mmol/L (5-15); ASPARTATE AMINO TRANSFERASE 52 U/L (15-37); BILIRUBIN,TOTAL 0.2 MG/DL (0.2-1.0); BLOOD UREA NITROGEN 15 mg/dL (7-18); CARBON DIOXIDE 27 MMOL/L (21-32); CHLORIDE 108 MMOL/L (98-107); CREATININE 1.3 MG/DL (0.55-1.30); POTASSIUM 4.1 MMOL/L (3.5-5.1); SODIUM 141 MMOL/L (136-145)
[2018-08-06 07:06] LABS: BASOPHILS % (AUTO) 0.6 % (0.0-2.0); EOSINOPHILS % (AUTO) 8.2 % (0.0-3.0); HEMATOCRIT 31.8 % (42.0-52.0); HEMOGLOBIN 10.6 G/DL (14.2-18.0); LYMPHOCYTES % (AUTO) 13.3 % (20.0-45.0); MEAN CORPUSCULAR VOLUME 100 FL (80-99); MONOCYTES % (AUTO) 8.3 % (1.0-10.0); NEUTROPHILS % (AUTO) 69.7 % (45.0-75.0); PLATELET COUNT 336 K/UL (150-450); RED BLOOD COUNT 3.19 M/UL (4.70-6.10); RED CELL DISTRIBUTION WIDTH 13.4 % (11.6-14.8); WHITE BLOOD COUNT 9.2 K/UL (4.8-10.8)
--- NOTE | 2018-08-06 07:08 | NUR ---
HAND-OFF: Report given to JAVIER Fraser. Pt is awake and resting. Bed in lowest position, bed rails up, and call light within reach.
--- NOTE | 2018-08-06 07:35 | NUR ---
NURSE NOTES: Pt in bed in low position, call light at bedside, HOB at 30 degrees, bed alarm on, pt in bed with eyes closed and breathing at 16 per min appears to be sleeping, pt on g-tube feeding, pt seems better than the last time I assisted him, unable to assess orientation due to sleeping, all labs WNL, pt receiving Osomolite 1.2 at 60/hr, IV site RT UA PICC patent and intact asymptomatic, JUNE draining and abdominal binder in place, pt just woke up and pt is Ox3 no confusion noted, can be resistive to care. No s/s of distress or sob noted, pt stated he wants to go home soon.
[2018-08-06 08:00] VITALS: BP 103/68
--- NOTE | 2018-08-06 08:15 | NUR ---
ST NOTE: SPOKE TO , DR. CARIAS RE:PT'S CONDITION. APPROVED FOR VIDEOSWALLOW STUDY. WILL FOLLOW.
[2018-08-06] MEDS: Pantoprazole Inj IVP SCH ×2 (09:30→20:44)
[2018-08-06] MEDS: Propranolol 40mg tab GT SCH (09:30)
[2018-08-06] MEDS: Heparin 5000 units/ml inj SUBQ SCH ×2 (09:31→20:45)
--- NOTE | 2018-08-06 09:46 | General Progress Note ---
Assessment/Plan Assessment/Plan #Sepsis #Acute purulent gangrenous cholecystitis. #klebsiella cholecystitis #acute Hypoxic respiratory failure #Acute Metabolic Encephalopathy - due to alcohol withdrawal and sepsis - meropenem, Diflucan - bcx x 2 ngtd - s/p ercp 07/12 - gen surg following s/p lap jocelyn converted to open jocelyn 07/12 - extubated on 07/16/18 - off o2 ncl - pulm following appreciated - pain control - appreciate surg recs - tpn -NG tube removed -s/p PEG #Acute Blood Loss Anemia - due to recent surgery - no overt bleeding noted currently - hgb 6.8 07/15, transfused 2U, 9.7 (07/16) - stable #Pleural Effusions - b/l - per mrcp - stable - pulm consult appreciated #Alcohol Pancreatitis #Intractable abdominal pain #intractable nausea/vomiting #Transaminitis #Alcohol Hepatitis #Alcohol withdrawals #Fatty Liver Disease #Hepatitis C - LFTs 446/532 - Lipase 687 - due to alcohol abuse - INR 1.0 - discriminant function, 4.5 , no need for steroids - US abd completed and reviewed, showing fatty liver disease. GS present, no obstruction noted - ppi - PRN antiemetics, zofran prn - Per GI, will need ERCP in 6-8 weeks for stent removal #Failure to thrive - due to alcohol withdrawals and the above - alcoholic pancreatitis - fluids #Alcohol Abuse - educated on cessation for 15 mins - patient states he understands and will try to quit - RN notified to monitor carefully with withdrawals - prn ativan - ciwa #Uncontrolled HTN and tachycardia overnight -all oral BP meds held for now -continue metoprolol IV q6h -transferred to ICU, on amiodarone drip #Tobacco abuse - smokes 1ppd - educated on smoking cessation for over 15 mins, states he understands the risks of smoking and will try to quit #Dysphagia -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 -Continue tube feeds via PEG #Hypernatremia - resoved -continue free water flushes via G-tube #Hypokalemia improved continue to monitor BMP Discharge Planning Subjective Date patient seen: Aug 06, 2018 Time patient seen: 09:30 ROS Limited/Unobtainable: No Cardiovascular: Denies: chest pain Respiratory: Denies: cough Gastrointestinal/Abdominal: Denies: abdomen distended, abdominal pain Allergies: Coded Allergies: No Known Allergies (Unverified , 06/01/16) Subjective Medicine follow up for multiple medical problems including acute gangrenous cholecystitis, acute hypoxic respiratory failure, acute encephalopathy No new issues Plan for repeat [employer]BOARD eval Seen by PT today Discharge planning Objective Last 24 Hour Vital Signs Date Time Temp Pulse Resp B/P (MAP) Pulse Ox O2 Delivery O2 Flow Rate FiO2 08/06/18 09:30 76 103/68 08/06/18 08:24 Room Air 08/06/18 08:00 97.7 76 16 103/68 (80) 94 08/06/18 04:00 97.8 81 20 121/79 (93) 95 08/06/18 04:00 81 08/06/18 00:00 97.8 75 20 134/67 (89) 94 08/06/18 00:00 75 08/05/18 21:00 Room Air 08/05/18 20:00 97.7 75 20 107/65 (79) 94 08/05/18 20:00 75 08/05/18 17:38 76 104/69 08/05/18 16:00 77 08/05/18 16:00 97.8 104 18 104/69 (81) 95 08/05/18 12:00 82 08/05/18 12:00 97.7 75 18 94/66 (75) 95 Intake and Output 08/05/18 08/06/18 19:00 07:00 Intake Total 1260 ml Output Total 550 ml 805 ml Balance -550 ml 455 ml Free Water 600 ml Tube Feeding 660 ml Output Urine Total 550 ml 800 ml Drainage Total 5 ml # Bowel Movements 1 3 Laboratory Tests 08/06/18 04:45: White Blood Count 9.2, Red Blood Count 3.19L, Hemoglobin 10.6L, Hematocrit 31.8L , Mean Corpuscular Volume 100H, Mean Corpuscular Hemoglobin 33.2H, Mean Corpuscular Hemoglobin Concent 33.3, Red Cell Distribution Width 13.4, Platelet Count 336, Mean Platelet Volume 6.5, Neutrophils (%) (Auto) 69.7, Lymphocytes (% ) (Auto) 13.3L, Monocytes (%) (Auto) 8.3, Eosinophils (%) (Auto) 8.2H, Basophils (%) (Auto) 0.6, Sodium Level 141, Potassium Level 4.1, Chloride Level 108H, Carbon Dioxide Level 27, Anion Gap 6, Blood Urea Nitrogen 15, Creatinine 1.3, Estimat Glomerular Filtration Rate 55.8, Glucose Level 107H, Calcium Level 8.0L, Total Bilirubin 0.2, Aspartate Amino Transf (AST/SGOT) 52H, Alanine Aminotransferase (ALT/SGPT) 58, Alkaline Phosphatase 75, Total Protein 7.0, Albumin 2.0L, Globulin 5.0, Albumin/Globulin Ratio 0.4L Height (Feet): 5 Height (Inches): 8.00 Weight (Pounds): 159 Neck: non-tender, normal alignment Cardiovascular: normal rate, regular rhythm Respiratory/Chest: lungs clear, normal breath sounds, no respiratory distress Abdomen: non tender, soft Tomás Cruz MD Aug 06, 2018 09:46
--- NOTE | 2018-08-06 09:46 | GI Progress Note ---
Assessment/Plan Problems: (1) Abnormal LFTs ICD Codes: R79.89 - Other specified abnormal findings of blood chemistry SNOMED: 363914506 (2) Cholecystitis, acute ICD Codes: K81.0 - Acute cholecystitis SNOMED: 72324933 (3) Hepatitis C ICD Codes: B19.20 - Unspecified viral hepatitis C without hepatic coma SNOMED: 07016648 (4) Fatty liver ICD Codes: K76.0 - Fatty (change of) liver, not elsewhere classified SNOMED: 312086098 (5) Alcoholic pancreatitis ICD Codes: K85.20 - Alcohol induced acute pancreatitis without necrosis or infection SNOMED: 840043406 (6) Pancreatitis, acute ICD Codes: K85.90 - Acute pancreatitis without necrosis or infection, unspecified SNOMED: 249407154 Status: stable Status Narrative Discussed with Dr. Yip Assessment/Plan SUMMARY OF FINDINGS: 1. 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 2. Status post ERCP with sphincterotomy, balloon assistance sludge and some pus extraction from the common bile duct and then stent placement. s/p open jocelyn, now in ICU with pancreatitis hepatitis C positive Pancreatitis s/p PEG Not tolerating G-tube feedings RECOMMENDATIONS: Repeat swallow evaluation, if patient passes then possible G-tube removal when stent is removed. Continue G-tube feedings per RD to goal, add low-dose Reglan ATC Trend lipase fu labs The patient will need repeat ERCP in 6 to 8 weeks for stent removal. approximately September 24, 2018. outpatient Hep C tx dc planning The patient was seen and examined at bedside and all new and available data was reviewed in the patients chart. I agree with the above findings, impression and plan. (Patient seen earlier today. Signature stamp does not reflect patient encounter time.). - Toñito Yip MD Subjective Subjective limited, more awake and alert Objective Last 24 Hour Vital Signs Date Time Temp Pulse Resp B/P (MAP) Pulse Ox O2 Delivery O2 Flow Rate FiO2 08/06/18 09:30 76 103/68 08/06/18 08:24 Room Air 08/06/18 08:00 97.7 76 16 103/68 (80) 94 08/06/18 04:00 97.8 81 20 121/79 (93) 95 08/06/18 04:00 81 08/06/18 00:00 97.8 75 20 134/67 (89) 94 08/06/18 00:00 75 08/05/18 21:00 Room Air 08/05/18 20:00 97.7 75 20 107/65 (79) 94 08/05/18 20:00 75 08/05/18 17:38 76 104/69 08/05/18 16:00 77 08/05/18 16:00 97.8 104 18 104/69 (81) 95 08/05/18 12:00 82 08/05/18 12:00 97.7 75 18 94/66 (75) 95 Intake and Output 08/05/18 08/06/18 19:00 07:00 Intake Total 1260 ml Output Total 550 ml 805 ml Balance -550 ml 455 ml Free Water 600 ml Tube Feeding 660 ml Output Urine Total 550 ml 800 ml Drainage Total 5 ml # Bowel Movements 1 3 Laboratory Tests Test 08/06/18 04:45 White Blood Count 9.2 K/UL (4.8-10.8) Red Blood Count 3.19 M/UL (4.70-6.10) L Hemoglobin 10.6 G/DL (14.2-18.0) L Hematocrit 31.8 % (42.0-52.0) L Mean Corpuscular Volume 100 FL (80-99) H Mean Corpuscular Hemoglobin 33.2 PG (27.0-31.0) H Mean Corpuscular Hemoglobin Concent 33.3 G/DL (32.0-36.0) Red Cell Distribution Width 13.4 % (11.6-14.8) Platelet Count 336 K/UL (150-450) Mean Platelet Volume 6.5 FL (6.5-10.1) Neutrophils (%) (Auto) 69.7 % (45.0-75.0) Lymphocytes (%) (Auto) 13.3 % (20.0-45.0) L Monocytes (%) (Auto) 8.3 % (1.0-10.0) Eosinophils (%) (Auto) 8.2 % (0.0-3.0) H Basophils (%) (Auto) 0.6 % (0.0-2.0) Sodium Level 141 MMOL/L (136-145) Potassium Level 4.1 MMOL/L (3.5-5.1) Chloride Level 108 MMOL/L (98-107) H Carbon Dioxide Level 27 MMOL/L (21-32) Anion Gap 6 mmol/L (5-15) Blood Urea Nitrogen 15 mg/dL (7-18) Creatinine 1.3 MG/DL (0.55-1.30) Estimat Glomerular Filtration Rate 55.8 mL/min (>60) Glucose Level 107 MG/DL (74-106) H Calcium Level 8.0 MG/DL (8.5-10.1) L Total Bilirubin 0.2 MG/DL (0.2-1.0) Aspartate Amino Transf (AST/SGOT) 52 U/L (15-37) H Alanine Aminotransferase (ALT/SGPT) 58 U/L (12-78) Alkaline Phosphatase 75 U/L (46-116) Total Protein 7.0 G/DL (6.4-8.2) Albumin 2.0 G/DL (3.4-5.0) L Globulin 5.0 g/dL Albumin/Globulin Ratio 0.4 (1.0-2.7) L Height (Feet): 5 Height (Inches): 8.00 Weight (Pounds): 159 General Appearance: WD/WN, no apparent distress, alert Cardiovascular: normal rate Respiratory/Chest: normal breath sounds, no respiratory distress Abdominal Exam: normal bowel sounds, non tender, soft Extremities: normal range of motion, non-tender Objective Patient is more alert and oriented Able to swallow pills without any signs or symptoms of aspiration Sonja Neely NP Aug 06, 2018 09:46
[2018-08-06 12:00] VITALS: BP 102/68
[2018-08-06] MEDS ORDERED: Milk of Magnesia 30ml Ud ORAL PRN (12:00)
--- NOTE | 2018-08-06 12:06 | NUR ---
RD ASSESSMENT & RECOMMENDATIONS SEE CARE ACTIVITY FOR COMPLETE ASSESSMENT DAILY ESTIMATED NEEDS: Needs based on Pancreatitis, 72.6kg 25-30 kcals/kg 5887-4354 total kcals 1-1.5 g protein/kg 73-109 g total protein 25-30 mL/kg 6073-7803 total fluid mLs NUTRITION DIAGNOSIS: * Altered nutrition-related lab values R/T liver dysfunction, pancreatitis, clinical condition as evidenced by elev LFTs, elev T bili, now wnl, Hep C antibody >11, elev lipase and amylase, low Na (130-> wnl), low K 3.3-> wnl. * Swallowing difficulty R/T dysphagia, respiratory status as evidenced by now extubated, initially failed VSS, s/p PEG placement, now passed VSS w/ rec for mech soft ground texture diet. CURRENT DIET:LOW NA, LOW FAT/ mech soft ground PO DIET RECOMMENDATIONS: LOW NA, LOW FAT/ texture per BIOMETRIC FINGERPRINTING TECHNICIAN ADDITIONAL RECOMMENDATIONS: * Calibrated bedscale wt on 08/06-> 155.6lbs. * Monitor PO intake closely, need for GT feeding to supplement needs * Monitor PO tolerance- pancreatitis dx w/ elev lipase * Monitor lipase and LFTs
--- NOTE | 2018-08-06 12:10 | NUR ---
ST NOTE: REPEAT VIDEOSWALLOW STUDY COMPLETED VIDEOSWALLOW STUDY FULL REPORT WILL FOLLOW UNDER ST NOTE IN CARE ACTIVITY PT ALERT, COOPERATIVE, FOLLOWS DIRECTIONS, ABLE TO EXPRESS WANTS AND NEEDS VERBALLY. GIVEN PO TRIALS: THIN(TSPX2/LOV-[id number]-VBPX), NECTAR THICK(TSP/GPJ-[id number]-DPLD), HONEY THICK(TSP), PUDDING(TSP) 1/2 CRACKER WITH 3CC PUDDING, THIN(STRAW-ONE SIP), H2O LIQUID WASH WITH CUP-SELF IMPRESSION: PT PRESENTS WITH MILD TO MODERATE OROPHARYNGEAL DYSPHAGIA CHARACTERIZED BY MILD INCREASED OROPHARYNGEAL TRANSIT TIME DUE TO SENSORIMOTOR DEFICITS. NO SIGNIFICANT PENETRATION NOR ASPIRATION WITH ALL CONSISTENCIES WAS NOTED, HOWEVER, DELAYED SWALLOW WAS NOTED. MILD TO MODERATE TONGUE BASE AND VALLECULAR RESIDUE WAS NOTED DUE TO REDUCED TONGUE BASE RETRACTION AND REDUCED TO PARTIAL EPIGLOTTIC INVERSION. MIN TO MILD PYRIFORM SINUSES RESIDUE WAS NOTED DUE TO MILDLY REDUCED LARYNGEAL ELEVATION. MIN TO MILD ESOPHAGEAL DYSPHAGIA CHARACTERIZED BY ESOPHAGEAL RETENTION WITH RETROGRADE FLOW BELOW PHARYNGOESOPHAGEAL SEGMENT(PES). PROBABLE CERVICAL OSTEOPHYTES WAS NOTED IN C4 TO C5. PT BENEFITS FROM EFFORTFUL SWALLOW(WITH/WITHOUT BREATH HOLD), SWALLOW X 2 TO 3 TIMES, HEAD TURN TO L-SIDE AND LIQUID WASH. RECOMMENDATIONS: 1. FOR QUALITY OF LIFE, SLOWLY INITIATE MECH SOFT(GROUND) WITH THIN LIQUID DIET 2. STRICT ASPIRATION/REFLUX PRECAUTIONS WITH 1TO1 ASSIST 3. SWALLOW TX D/W PT AND INFORMED MD(DR. CARIAS AND DR. FOOTE. POSTED ASPIRATION/REFLUX PRECAUTIONS SIGN.
[2018-08-06] MEDS ORDERED: Acetaminophen 650 MG SUPP RECTAL PRN (12:15)
--- NOTE | 2018-08-06 13:24 | NUR ---
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 97.8 HR 75 RR 20 B/P 134/67 AST 52 CXR= PATCHY INFILTRATES OF THE RIGHT MID AND UPPER LUNG IS: FLAGYL IV LEVAQUIN IV HEPARIN SUBC PROTONIX IV TELE STATUS
--- NOTE | 2018-08-06 15:52 | General Progress Note ---
Assessment/Plan Assessment/Plan # Anemia of chronic disease due to underlying chronic medical issues, multifactorial, pancreatitis --> Anemia workup has been reviewed --> No evidence of hemolysis is noted, peripheral smear has been reviewed. --> Hgb goal >7. Transfuse prn. --> Epogen or iron at this time is not particularly indicated --> Medications have been reviewed # Thrombocytopenia is likely related to underlying reactive process from pancreatitis, acute, as well as alcoholic intoxication and myelosuppression --> also patient has a history of hepatitis C from prior admission --> smear has been reviewed --> heparin sq is okay if needed for dvt ppx # Erythrocytosis is likely related to dehydration --> hgb goal >7, no evidence of bleeding currently --> given ivf already # Leukocytosis no e/o annie infection --> could be due to reactive process v cholecystitis --> wbc trend: 22-->18-->16-->14-->18-->19-->15-->14 --> peripheral smear has been reviewed --> ercp repeat in 6-8 weeks, stent was placed # Pancreatitis with alcohol abuse --> recommend etoh cessation --> amylase and lipase prn --> Status post ERCP with sphincterotomy + stent placement # Transaminitis --> likely related to etoh abuse --> in past seen by gi # Alcohol abuse -- recommend cessation # PEG inserted left lower quadrant The timing of this note does not necessarily reflect the time of the patient was seen. Greatly appreciate consultation! Subjective Allergies: Coded Allergies: No Known Allergies (Unverified , 06/01/16) Subjective 07/05: bp was high today and dc was cancelled until tomorow, on librium 07/06: wbc was high though other counts are better, no f/c 07/10: seen by bedside, heart rate increased, appears agitated, wbc 13.9 07/11: to get ercp tomorrow, surgery and gi following 07/12 ercp, sphincterotomy, stent placement surgery done today, currently having tremors and tachy. wbc 15.9, hgb 14, plt 429 07/13: Pt is intubated, seen by bedside,wbc 22, on abx, no acute distress 07/14: awake and comfortable, still intubated on vent, labs noted hb trending down, wbc 18, hgb 8. 07/16: seen by bedside, awake, comfortable, wbc 14, hgb 9, plt 613 07/17: awake, comfortable, status post ERCP with sphincterotomy wbc 21, hgb 10, plt 689. 07/18; seen by bedside, awake comfortable, on venturi mask, wbc 23, plt 754. 07/19: seen by bedside, awake and comfortable, no events, wbc 21 07/20: now out of the icu, doing better, wbc improved, remains on abx as per ID 07/22: Pt is awake, comfortable, wbc 16, lt 632, on abx 07/23 Pt is awake, comfortable, wbc 15, plt 574, on abx, CXR revelals, Increasing opacities of the right lung and Slightly increasing right pleural effusion 07/24: ng has been removed, seen by other consultants, hgb has improved, no bleeding 07/25: seen by bedside, awake, comfortable, on nasal canula, failed video swallow test and has some PO meds, wbc trending down. 07/26: awake, comfortable, G-tube placement consent signed 07/27: a janell overnignt, in ICU , awake, alert, responsive, PEG inserted today, wbc 19. 07/30: resting in bed awake,alert disoriented on and off,Thoracentesis done, wbc trending up again, Chest x-ray reveals, Resolved right pleural effusion, post thoracentesis. No radiographically evident complication Persistent right mid and lower lung infiltrates. 07/31: seen by bedside, awake, confused, no signs of acute distress. 08/01: Pt is resting in bed, no acute events reported, 08/02: no acute distress at this time, wbc 15, CXR reveals, Improving but persistent right lung infiltrate. 08/03: seen by bedside, awake, comfortable, no acute distress. wbc 15 08/05: on levo and flagyl as per id, no f/c, ct reviewed 08/06: awake, comfortable. not tolerating G-tube feedings Objective Last 24 Hour Vital Signs Date Time Temp Pulse Resp B/P (MAP) Pulse Ox O2 Delivery O2 Flow Rate FiO2 08/06/18 12:00 98.2 73 16 102/68 (79) 94 08/06/18 11:55 72 08/06/18 09:30 76 103/68 08/06/18 08:24 Room Air 08/06/18 08:00 97.7 76 16 103/68 (80) 94 08/06/18 07:59 74 08/06/18 04:00 97.8 81 20 121/79 (93) 95 08/06/18 04:00 81 08/06/18 00:00 97.8 75 20 134/67 (89) 94 08/06/18 00:00 75 08/05/18 21:00 Room Air 08/05/18 20:00 97.7 75 20 107/65 (79) 94 08/05/18 20:00 75 08/05/18 17:38 76 104/69 08/05/18 16:00 77 08/05/18 16:00 97.8 104 18 104/69 (81) 95 Intake and Output 08/05/18 08/06/18 19:00 07:00 Intake Total 1260 ml Output Total 550 ml 805 ml Balance -550 ml 455 ml Free Water 600 ml Tube Feeding 660 ml Output Urine Total 550 ml 800 ml Drainage Total 5 ml # Bowel Movements 1 3 Laboratory Tests 08/06/18 04:45: White Blood Count 9.2, Red Blood Count 3.19L, Hemoglobin 10.6L, Hematocrit 31.8L , Mean Corpuscular Volume 100H, Mean Corpuscular Hemoglobin 33.2H, Mean Corpuscular Hemoglobin Concent 33.3, Red Cell Distribution Width 13.4, Platelet Count 336, Mean Platelet Volume 6.5, Neutrophils (%) (Auto) 69.7, Lymphocytes (% ) (Auto) 13.3L, Monocytes (%) (Auto) 8.3, Eosinophils (%) (Auto) 8.2H, Basophils (%) (Auto) 0.6, Sodium Level 141, Potassium Level 4.1, Chloride Level 108H, Carbon Dioxide Level 27, Anion Gap 6, Blood Urea Nitrogen 15, Creatinine 1.3, Estimat Glomerular Filtration Rate 55.8, Glucose Level 107H, Calcium Level 8.0L, Total Bilirubin 0.2, Aspartate Amino Transf (AST/SGOT) 52H, Alanine Aminotransferase (ALT/SGPT) 58, Alkaline Phosphatase 75, Total Protein 7.0, Albumin 2.0L, Globulin 5.0, Albumin/Globulin Ratio 0.4L Height (Feet): 5 Height (Inches): 8.00 Weight (Pounds): 159 Objective Physical Exam General Appearance: A+O x3, NAD, ++ asterixis HEENT: normocephalic, atraumatic Neck: non-tender, normal alignment Respiratory/Chest: chest wall non-tender, lungs clear Cardiovascular/Chest: normal peripheral pulses, normal rate Abdomen: normal bowel sounds, non tender.++PEG Extremities: normal range of motion Guy Salazar MD Aug 06, 2018 15:52
[2018-08-06 16:00] VITALS: BP 112/81
[2018-08-06] MEDS: Propranolol 40mg tab ORAL SCH (18:57)
[2018-08-06] MEDS ORDERED: NS 275ml ONE (19:57)
[2018-08-06] MEDS ORDERED: Tubing IV Secondary IV ONE (19:57)
[2018-08-06 20:00] VITALS: BP 113/78
--- NOTE | 2018-08-06 20:15 | NUR ---
HAND-OFF: Report given to Jayro Rn.
--- NOTE | 2018-08-06 20:18 | NUR ---
NURSE NOTES: Received report from Chris Woods RN. Patient in bed asleep with no S/S of distress or acute pain at this time. Kept clean, dry, and comfortable in bed. On R/A, tolerating well and SP02 at 95-97%. IV line GARRETT PICC intact and patent SL, placed on continuous cardiac monitoring per protocol. Safety precaution on place; siderails x3 up, HOB elevated at semi fowlers, call light within reach, bed in lowest position, brakes and alarm on at all times. Patient has F/C for retention, patent and intact with pale yellow urine observed. Needs and wants anticipated and attended, will continue plan of care and monitor for any changes noted
--- NOTE | 2018-08-06 20:22 | Pulmonology Progress Note ---
Assessment/Plan Problems: (1) Cholecystitis, acute (2) Alcoholic pancreatitis (3) Pancreatitis, acute (4) Alcohol abuse (5) Abnormal LFTs (6) Gangrenous cholecystitis (7) Respiratory disorder with ventilator dependence Assessment & Plan: Extubated and TTF (8) Blood loss anemia (9) Pneumonia (10) Hepatitis C (11) Fatty liver Assessment/Plan Plerual fluid studies never sent~ Optimize pulmonary hygiene/mobilize as tolerated PRN O2 PRN ATROVENT HHN's Abx per ID GTF's + PO as able Montor volumes and renal function DVT Px: Hep SQ FC Subjective Allergies: Coded Allergies: No Known Allergies (Unverified , 06/01/16) Subjective Seen earlier AFVSS on RA Passed SOCIAL SERVICES DESIGNEE eval, started on PO, still on TF"s Denies cough/congestion/SOB/wheezing, no FC Objective Last 24 Hour Vital Signs Date Time Temp Pulse Resp B/P (MAP) Pulse Ox O2 Delivery O2 Flow Rate FiO2 08/06/18 18:57 75 112/81 08/06/18 16:00 97.9 75 16 112/81 (91) 96 08/06/18 15:46 70 08/06/18 12:00 98.2 73 16 102/68 (79) 94 08/06/18 11:55 72 08/06/18 09:30 76 103/68 08/06/18 08:24 Room Air 08/06/18 08:00 97.7 76 16 103/68 (80) 94 08/06/18 07:59 74 08/06/18 04:00 97.8 81 20 121/79 (93) 95 08/06/18 04:00 81 08/06/18 00:00 97.8 75 20 134/67 (89) 94 08/06/18 00:00 75 08/05/18 21:00 Room Air Intake and Output 08/05/18 08/06/18 18:59 06:59 Intake Total 1260 ml Output Total 550 ml 805 ml Balance -550 ml 455 ml Free Water 600 ml Tube Feeding 660 ml Output Urine Total 550 ml 800 ml Drainage Total 5 ml # Bowel Movements 1 3 General Appearance: WD/WN, no acute distress HEENT: normocephalic, atraumatic, anicteric, mucous membranes moist Respiratory/Chest: chest wall non-tender, lungs clear, normal breath sounds, no respiratory distress, no accessory muscle use Cardiovascular: normal peripheral pulses, normal rate, regular rhythm Abdomen: normal bowel sounds, soft, non tender, no organomegaly, non distended , no mass, other - GT Extremities: no cyanosis, no clubbing, no edema Laboratory Tests 08/06/18 04:45: White Blood Count 9.2, Red Blood Count 3.19L, Hemoglobin 10.6L, Hematocrit 31.8L , Mean Corpuscular Volume 100H, Mean Corpuscular Hemoglobin 33.2H, Mean Corpuscular Hemoglobin Concent 33.3, Red Cell Distribution Width 13.4, Platelet Count 336, Mean Platelet Volume 6.5, Neutrophils (%) (Auto) 69.7, Lymphocytes (% ) (Auto) 13.3L, Monocytes (%) (Auto) 8.3, Eosinophils (%) (Auto) 8.2H, Basophils (%) (Auto) 0.6, Sodium Level 141, Potassium Level 4.1, Chloride Level 108H, Carbon Dioxide Level 27, Anion Gap 6, Blood Urea Nitrogen 15, Creatinine 1.3, Estimat Glomerular Filtration Rate 55.8, Glucose Level 107H, Calcium Level 8.0L, Total Bilirubin 0.2, Aspartate Amino Transf (AST/SGOT) 52H, Alanine Aminotransferase (ALT/SGPT) 58, Alkaline Phosphatase 75, Total Protein 7.0, Albumin 2.0L, Globulin 5.0, Albumin/Globulin Ratio 0.4L Current Medications Medications (Trade) Dose Ordered Sig/[place] Route PRN Reason Start Time Stop Time Status Last Admin Dose Admin Acetaminophen (Tylenol) 650 mg Q4H PRN RECTAL Prn for Temp >100.5 08/06/18 12:15 08/14/18 21:04 Acetaminophen (Tylenol) 650 mg Q6H PRN ORAL Mild Pain/Temp > 100.5 08/06/18 12:00 09/05/18 11:59 Al Hydroxide/Mg Hydroxide (Mylanta) 15 ml Q6H PRN ORAL DYSPEPSIA 08/06/18 12:07 08/27/18 12:06 Chlorhexidine Gluconate (Estrella-Hex 2%) 1 applic DAILY@2000 TOPIC 07/29/18 20:00 08/15/18 19:59 08/05/18 20:22 Dextrose (Dextrose 50%) 25 ml Q30M PRN IV Hypoglycemia 07/28/18 21:05 08/17/18 21:04 Dextrose (Dextrose 50%) 50 ml Q30M PRN IV hypoglycemia 07/28/18 21:05 08/17/18 21:04 Diphenhydramine HCl (Benadryl) 12.5 mg Q6H PRN IVP Itching/Pruritis 07/28/18 21:05 08/27/18 21:04 Haloperidol Lactate (Haldol) 5 mg Q6H PRN IM Agitation 08/03/18 14:30 09/02/18 14:29 Heparin Sodium (Porcine) (Heparin 5000 units/ml) 5,000 units EVERY 12 HOURS SUBQ 08/03/18 09:00 09/02/18 08:59 08/06/18 09:31 Insulin Aspart (NovoLOG) No Dose Q6HR SUBQ 07/29/18 00:00 08/17/18 12:59 08/06/18 06:15 Levofloxacin 100 ml @ 100 mls/hr Q24H IVPB 08/03/18 20:00 08/10/18 19:59 08/05/18 20:23 Magnesium Hydroxide (Mom) 30 ml BIDPRN PRN ORAL Constipation 08/06/18 12:00 08/27/18 21:04 Metronidazole 100 ml @ 100 mls/hr Q8HR IVPB 08/03/18 22:00 08/10/18 21:59 08/06/18 13:22 Nicotine (Nicoderm) 1 patch Q24H TDERMAL 07/29/18 18:00 08/08/18 17:59 08/06/18 18:57 Ondansetron HCl (Zofran) 4 mg Q6H PRN IVP Nausea & Vomiting 07/28/18 21:05 08/27/18 21:04 Pantoprazole (Protonix) 40 mg EVERY 12 HOURS IVP 07/29/18 09:00 08/28/18 08:59 08/06/18 09:30 Propranolol HCl (Inderal) 80 mg BID ORAL 08/06/18 18:00 08/27/18 11:59 08/06/18 18:57 Trenton Ladd MD Aug 06, 2018 20:22
[2018-08-06] MEDS: Dyna-Hex 2% Top Sol 2oz TOPIC SCH (20:44)
--- NOTE | 2018-08-06 21:18 | Cardiology Progress Note ---
Assessment/Plan Assessment/Plan 1. Paroxysmal SVT, converted to SR, continue propranolol. 2. Septic shock. 3. PAF, not a suitable candidate for anticoag therapy due to chronic liver disease. 4. Moderate pulmonary HTN. 5. Acute purulent gangrenous cholecystitis due to Klebsiella. 6. Anemia 7. Acute Hypoxic respiratory failure, s/p right thoracentesis. 8. Acute Metabolic Encephalopathy 9. Anemia Subjective Subjective Sinus rhythm at rate of 75. Objective Last 24 Hour Vital Signs Date Time Temp Pulse Resp B/P (MAP) Pulse Ox O2 Delivery O2 Flow Rate FiO2 08/06/18 18:57 75 112/81 08/06/18 16:00 97.9 75 16 112/81 (91) 96 08/06/18 15:46 70 08/06/18 12:00 98.2 73 16 102/68 (79) 94 08/06/18 11:55 72 08/06/18 09:30 76 103/68 08/06/18 08:24 Room Air 08/06/18 08:00 97.7 76 16 103/68 (80) 94 08/06/18 07:59 74 08/06/18 04:00 97.8 81 20 121/79 (93) 95 08/06/18 04:00 81 08/06/18 00:00 97.8 75 20 134/67 (89) 94 08/06/18 00:00 75 Intake and Output 08/05/18 08/06/18 18:59 06:59 Intake Total 1260 ml Output Total 550 ml 805 ml Balance -550 ml 455 ml Free Water 600 ml Tube Feeding 660 ml Output Urine Total 550 ml 800 ml Drainage Total 5 ml # Bowel Movements 1 3 2D Echo: LVEF 65%, Mild LVH, RVSP 50 mmHg, Mild MR/WI, Normal LVD Laboratory Tests Test 08/06/18 04:45 White Blood Count 9.2 K/UL (4.8-10.8) Red Blood Count 3.19 M/UL (4.70-6.10) L Hemoglobin 10.6 G/DL (14.2-18.0) L Hematocrit 31.8 % (42.0-52.0) L Mean Corpuscular Volume 100 FL (80-99) H Mean Corpuscular Hemoglobin 33.2 PG (27.0-31.0) H Mean Corpuscular Hemoglobin Concent 33.3 G/DL (32.0-36.0) Red Cell Distribution Width 13.4 % (11.6-14.8) Platelet Count 336 K/UL (150-450) Mean Platelet Volume 6.5 FL (6.5-10.1) Neutrophils (%) (Auto) 69.7 % (45.0-75.0) Lymphocytes (%) (Auto) 13.3 % (20.0-45.0) L Monocytes (%) (Auto) 8.3 % (1.0-10.0) Eosinophils (%) (Auto) 8.2 % (0.0-3.0) H Basophils (%) (Auto) 0.6 % (0.0-2.0) Sodium Level 141 MMOL/L (136-145) Potassium Level 4.1 MMOL/L (3.5-5.1) Chloride Level 108 MMOL/L (98-107) H Carbon Dioxide Level 27 MMOL/L (21-32) Anion Gap 6 mmol/L (5-15) Blood Urea Nitrogen 15 mg/dL (7-18) Creatinine 1.3 MG/DL (0.55-1.30) Estimat Glomerular Filtration Rate 55.8 mL/min (>60) Glucose Level 107 MG/DL (74-106) H Calcium Level 8.0 MG/DL (8.5-10.1) L Total Bilirubin 0.2 MG/DL (0.2-1.0) Aspartate Amino Transf (AST/SGOT) 52 U/L (15-37) H Alanine Aminotransferase (ALT/SGPT) 58 U/L (12-78) Alkaline Phosphatase 75 U/L (46-116) Total Protein 7.0 G/DL (6.4-8.2) Albumin 2.0 G/DL (3.4-5.0) L Globulin 5.0 g/dL Albumin/Globulin Ratio 0.4 (1.0-2.7) L Objective HEENT: normocephalic, atraumatic, anicteric, PERRL, dry mucous membrane Neck: no JVD, no carotid bruit. Respiratory/Chest: chest wall non-tender, lungs clear, normal breath sounds, no respiratory distress, no accessory muscle use Cardiovascular/Chest: Normal S1S2, no murmurs, gallops or rubs, rate,regular rhythm, tachycardic. Abdomen: normal bowel sounds, soft, no organomegaly, no mass, other - mild epigastric ttp Extremities: normal range of motion, non-tender, normal inspection, no calf tenderness, normal capillary refill, non-pitting Skin Exam: normal pigmentation, warm/dry Neurologic: no motor/sensory deficits, alert, oriented x 3, responsive, normal mood/affect Luis Patel MD Aug 06, 2018 21:18
[2018-08-07] VITALS: BP 107/72
[2018-08-07 04:00] VITALS: BP 116/67
[2018-08-07] MEDS ORDERED: NovoLOG Insulin Flexpen SUBQ SCH (06:30)
--- NOTE | 2018-08-07 07:20 | NUR ---
HAND-OFF: Report given to Chris Woods RN. Patient in bed in stable condition, will endorse plan of care.
--- NOTE | 2018-08-07 07:23 | NUR ---
NURSE NOTES: Pt in bed in low position with HOB in semi fowlers, special air mattress on, pt has call light at bedside, bed alarm on, pt Ox4 calm and cooperative, pt was able to ambulate with assist yesterday with nursing staff and physical therapist, pt no longer on G-tube feeding as pt passed swallow evaluation, IV intact PiCC, JUNE still draining, melchor catheter in place and draining, pt makes needs known, denies pain, no s/s of sob or distress. Will see if a down grade is possible as discharge planning has been entered.
[2018-08-07 07:55] LABS: BASOPHILS % (AUTO) 0.6 % (0.0-2.0); EOSINOPHILS % (AUTO) 7.3 % (0.0-3.0); HEMATOCRIT 32.4 % (42.0-52.0); HEMOGLOBIN 10.7 G/DL (14.2-18.0); MEAN CORPUSCULAR VOLUME 99 FL (80-99); MONOCYTES % (AUTO) 7.9 % (1.0-10.0); NEUTROPHILS % (AUTO) 71.2 % (45.0-75.0); PLATELET COUNT 346 K/UL (150-450); RED BLOOD COUNT 3.27 M/UL (4.70-6.10); RED CELL DISTRIBUTION WIDTH 13.4 % (11.6-14.8); WHITE BLOOD COUNT 9.8 K/UL (4.8-10.8)
[2018-08-07 08:00] VITALS: BP 118/75
[2018-08-07 08:12] LABS: ANION GAP 7 mmol/L (5-15); BLOOD UREA NITROGEN 13 mg/dL (7-18); CALCIUM 8.5 MG/DL (8.5-10.1); CARBON DIOXIDE 26 MMOL/L (21-32); CHLORIDE 106 MMOL/L (98-107); CREATININE 1.4 MG/DL (0.55-1.30); POTASSIUM 4.1 MMOL/L (3.5-5.1); SODIUM 139 MMOL/L (136-145)
[2018-08-07] MEDS: Propranolol 40mg tab ORAL SCH ×2 (09:18→17:10)
[2018-08-07] MEDS: Pantoprazole Inj IVP SCH ×2 (09:18→20:36)
[2018-08-07] MEDS: Heparin 5000 units/ml inj SUBQ SCH ×2 (09:19→20:38)
--- NOTE | 2018-08-07 10:36 | GI Progress Note ---
Assessment/Plan Problems: (1) Abnormal LFTs ICD Codes: R79.89 - Other specified abnormal findings of blood chemistry SNOMED: 281848125 (2) Cholecystitis, acute ICD Codes: K81.0 - Acute cholecystitis SNOMED: 00318413 (3) Hepatitis C ICD Codes: B19.20 - Unspecified viral hepatitis C without hepatic coma SNOMED: 51998950 (4) Fatty liver ICD Codes: K76.0 - Fatty (change of) liver, not elsewhere classified SNOMED: 551344176 (5) Alcoholic pancreatitis ICD Codes: K85.20 - Alcohol induced acute pancreatitis without necrosis or infection SNOMED: 863504597 (6) Pancreatitis, acute ICD Codes: K85.90 - Acute pancreatitis without necrosis or infection, unspecified SNOMED: 366981657 Status: doing well, stable, progressing Status Narrative Discussed with Dr. Yip Assessment/Plan SUMMARY OF FINDINGS: 1. 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 2. Status post ERCP with sphincterotomy, balloon assistance sludge and some pus extraction from the common bile duct and then stent placement. s/p open jocleyn, now in ICU with pancreatitis hepatitis C positive Pancreatitis s/p PEG Tolerating G-tube feedings RECOMMENDATIONS: Repeat swallow evaluation, if patient passes then possible G-tube removal when patient returns for follow-up -Okay to advance diet if patient passes swallow evaluation Continue G-tube feedings per RD to goal, add low-dose Reglan ATC Trend lipase fu labs The patient will need repeat ERCP in 6 to 8 weeks for stent removal. approximately September 24, 2018. outpatient Hep C tx dc planning The patient was seen and examined at bedside and all new and available data was reviewed in the patients chart. I agree with the above findings, impression and plan. (Patient seen earlier today. Signature stamp does not reflect patient encounter time.). - Toñito Yip MD Subjective Gastrointestinal/Abdominal: Reports: no symptoms Subjective Denies any abdominal pain No nausea or vomiting Objective Last 24 Hour Vital Signs Date Time Temp Pulse Resp B/P (MAP) Pulse Ox O2 Delivery O2 Flow Rate FiO2 08/07/18 09:18 76 118/75 08/07/18 08:30 Room Air 08/07/18 08:00 99.1 76 20 118/75 (89) 95 08/07/18 04:00 71 08/07/18 04:00 98.5 74 18 116/67 (83) 96 08/07/18 00:00 98.7 70 18 107/72 (84) 96 08/07/18 00:00 70 08/06/18 21:00 Room Air 08/06/18 20:00 97.5 82 19 113/78 (90) 97 08/06/18 20:00 77 08/06/18 18:57 75 112/81 08/06/18 16:00 97.9 75 16 112/81 (91) 96 08/06/18 15:46 70 08/06/18 12:00 98.2 73 16 102/68 (79) 94 08/06/18 11:55 72 Intake and Output 08/06/18 08/07/18 19:00 07:00 Intake Total 500 ml 240 ml Output Total 400 ml 10 ml Balance 100 ml 230 ml Intake Oral 500 ml 240 ml Output Urine Total 400 ml Drainage Total 10 ml # Bowel Movements 1 1 Laboratory Tests Test 08/07/18 06:00 White Blood Count 9.8 K/UL (4.8-10.8) Red Blood Count 3.27 M/UL (4.70-6.10) L Hemoglobin 10.7 G/DL (14.2-18.0) L Hematocrit 32.4 % (42.0-52.0) L Mean Corpuscular Volume 99 FL (80-99) Mean Corpuscular Hemoglobin 32.9 PG (27.0-31.0) H Mean Corpuscular Hemoglobin Concent 33.2 G/DL (32.0-36.0) Red Cell Distribution Width 13.4 % (11.6-14.8) Platelet Count 346 K/UL (150-450) Mean Platelet Volume 6.6 FL (6.5-10.1) Neutrophils (%) (Auto) 71.2 % (45.0-75.0) Lymphocytes (%) (Auto) 13.0 % (20.0-45.0) L Monocytes (%) (Auto) 7.9 % (1.0-10.0) Eosinophils (%) (Auto) 7.3 % (0.0-3.0) H Basophils (%) (Auto) 0.6 % (0.0-2.0) Sodium Level 139 MMOL/L (136-145) Potassium Level 4.1 MMOL/L (3.5-5.1) Chloride Level 106 MMOL/L (98-107) Carbon Dioxide Level 26 MMOL/L (21-32) Anion Gap 7 mmol/L (5-15) Blood Urea Nitrogen 13 mg/dL (7-18) Creatinine 1.4 MG/DL (0.55-1.30) H Estimat Glomerular Filtration Rate 51.2 mL/min (>60) Glucose Level 95 MG/DL (74-106) Calcium Level 8.5 MG/DL (8.5-10.1) Lipase 788 U/L (73-393) H Height (Feet): 5 Height (Inches): 8.00 Weight (Pounds): 159 General Appearance: WD/WN, no apparent distress, alert Cardiovascular: normal rate Respiratory/Chest: normal breath sounds, no respiratory distress Abdominal Exam: normal bowel sounds, non tender, soft, GT site Extremities: normal range of motion, non-tender Objective Patient is more alert and oriented Able to swallow pills without any signs or symptoms of aspiration Sonja Neely NP Aug 07, 2018 10:36
[2018-08-07] MEDS ORDERED: DiphenhydrAMINE 50mg/ml Inj IVP PRN (10:58)
[2018-08-07] MEDS ORDERED: Acetaminophen 650 MG SUPP RECTAL PRN (10:58)
[2018-08-07] MEDS ORDERED: Haloperidol 5mg/ml Inj IM PRN (10:59)
--- NOTE | 2018-08-07 11:03 | NUR ---
HAND-OFF: Report given to Jarad Keyes at [address]
[2018-08-07] MEDS: NovoLOG Insulin Flexpen SUBQ SCH ×4 (11:30→20:52)
[2018-08-07] MEDS ORDERED: Milk of Magnesia 30ml Ud ORAL PRN (12:00)
[2018-08-07 12:03] VITALS: BP 101/71
--- NOTE | 2018-08-07 13:00 | NUR ---
NURSE NOTES: REPORT RECEIVED FROM JAVIER PITTS FROM TELEMETRY. PT ARRIVED IN STABLE CONDITION. IN NO APPARENT DISTRESS AT THIS TIME. PT HAS WALLET, DID NOT WANT RN TO GO THROUGH WALLET. STATES "SHE () HAS ALL THE MONEY ANYWAYS". PT WITH PEREZ CATH DRAINING CLEAR YELLOW URINE BY GRAVITY. PT HAS 1 JUNE DRAIN ON RIGHT ABDOMEN DRAINING SERO-SANG FLUID. PT IS AMBULATORY WITH MINIMAL ASSIST. AXOX4, CALM, RESTING IN BED. CALL LIGHT WITHIN REACH.
[2018-08-07 15:47] VITALS: BP 115/77
--- NOTE | 2018-08-07 15:48 | NUR ---
P.T Weekly Progress Note: Pt progressing well in therapy as far as his strength, overall functional mobility , gait and activity tolerance. BUE/BLE strength are now grossly 3 to 3+/5. Pt currently require MIN/CGA X 1 ( mosty BLE assist to get back to bed ) , able to turn/roll, repositioning independently. Pt now able to perform transfer mobility tasks with CGA-MIN A X 1 and was able to ambulate and tolerate distance of 30 ft using the FWW with CGA/MIN A X . Pt is highly motivated and very cooperative in therapy. Pt's goal is to go home medically stable. Will continue with POC with progression of activities. Recommending SNF for further rehab VS home with P.T depending on progress at [facility].
--- NOTE | 2018-08-07 16:02 | General Progress Note ---
Assessment/Plan Assessment/Plan #Sepsis #Acute purulent gangrenous cholecystitis. 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 GS present, no obstruction noted - ppi - PRN antiemetics, zofran prn - Per GI, will need ERCP in 6-8 weeks for stent removal #Failure to thrive - due to alcohol withdrawals and the above - alcoholic pancreatitis - fluids #Alcohol Abuse - educated on cessation for 15 mins - patient states he understands and will try to quit - RN notified to monitor carefully with withdrawals - prn ativan - ciwa #Uncontrolled HTN and tachycardia overnight -all oral BP meds held for now -continue metoprolol IV q6h -transferred to ICU, on amiodarone drip #Tobacco abuse - smokes 1ppd - educated on smoking cessation for over 15 mins, states he understands the risks of smoking and will try to quit #Dysphagia -ELECTRIC PILE DRIVER OPERATOR to re-evaluate today -Continue tube feeds via PEG #Hypernatremia - resoved -continue free water flushes via G-tube #Hypokalemia improved continue to monitor BMP Discharge Planning Subjective Date patient seen: Aug 07, 2018 Time patient seen: 12:00 Cardiovascular: Denies: chest pain Respiratory: Denies: cough Gastrointestinal/Abdominal: Denies: abdomen distended Genitourinary: Denies: burning, discharge Allergies: Coded Allergies: No Known Allergies (Unverified , 06/01/16) Subjective Medicine follow up for multiple medical problems including acute gangrenous cholecystitis, acute hypoxic respiratory failure, acute encephalopathy No new issues Started on a diet Discharge planning Objective Last 24 Hour Vital Signs Date Time Temp Pulse Resp B/P (MAP) Pulse Ox O2 Delivery O2 Flow Rate FiO2 08/07/18 15:47 97.4 71 18 115/77 (90) 94 08/07/18 12:03 97.0 74 18 101/71 (81) 95 08/07/18 09:18 76 118/75 08/07/18 08:30 Room Air 08/07/18 08:00 99.1 76 20 118/75 (89) 95 08/07/18 07:42 76 08/07/18 04:00 71 08/07/18 04:00 98.5 74 18 116/67 (83) 96 08/07/18 00:00 98.7 70 18 107/72 (84) 96 08/07/18 00:00 70 08/06/18 21:00 Room Air 08/06/18 20:00 97.5 82 19 113/78 (90) 97 08/06/18 20:00 77 08/06/18 18:57 75 112/81 Intake and Output 08/06/18 08/07/18 19:00 07:00 Intake Total 500 ml 240 ml Output Total 400 ml 10 ml Balance 100 ml 230 ml Intake Oral 500 ml 240 ml Output Urine Total 400 ml Drainage Total 10 ml # Bowel Movements 1 1 Laboratory Tests 08/07/18 06:00: White Blood Count 9.8, Red Blood Count 3.27L, Hemoglobin 10.7L, Hematocrit 32.4L , Mean Corpuscular Volume 99, Mean Corpuscular Hemoglobin 32.9H, Mean Corpuscular Hemoglobin Concent 33.2, Red Cell Distribution Width 13.4, Platelet Count 346, Mean Platelet Volume 6.6, Neutrophils (%) (Auto) 71.2, Lymphocytes (% ) (Auto) 13.0L, Monocytes (%) (Auto) 7.9, Eosinophils (%) (Auto) 7.3H, Basophils (%) (Auto) 0.6, Sodium Level 139, Potassium Level 4.1, Chloride Level 106, Carbon Dioxide Level 26, Anion Gap 7, Blood Urea Nitrogen 13, Creatinine 1.4H, Estimat Glomerular Filtration Rate 51.2, Glucose Level 95, Calcium Level 8.5, Lipase 788H Height (Feet): 5 Height (Inches): 8.00 Weight (Pounds): 159 General Appearance: no apparent distress, alert Neck: normal alignment, supple Cardiovascular: normal peripheral pulses, normal rate, regular rhythm Respiratory/Chest: chest wall non-tender, lungs clear, normal breath sounds Abdomen: non tender, soft Tomás Cruz MD Aug 07, 2018 16:02
--- NOTE | 2018-08-07 16:55 | Infectious Diseases Prog Note ---
Assessment/Plan Assessment/Plan ASSESSMENT AND PLAN: 1. sepsis, klebsiella cholecystitis, s/p cholecystectomy, enterobacter pna, elevated lft's/lipase, pancreatitis, leukocytosis, fevers, sirs, jaqueline - levofloxacin and flagyl x 3 days - monitor labs and chest x-ray - CT A/P noted 3. Smoking use. 4. Anemia. 5. Thrombocytosis. 6. No history of diabetes, hypertension, but he is on Norvasc. 7. No known allergies. 8. Social history positive for smoking and alcohol use. No history of intravenous drug abuse. 9. MAR was noted. 10. Case discussed with RN. 11. Continue treatment per primary consultants. 12. Case discussed at length the ICU nurse, the patient currently in ICU. 13. Continue skin care protocol and pulmonary treatments for now. Subjective Constitutional: Reports: fatigue; Denies: fever HEENT: Denies: congestion Respiratory: Denies: shortness of breath Cardiovascular: Denies: chest pain Gastrointestinal/Abdominal: Denies: nausea, vomiting, diarrhea Genitourinary: Reports: other - + melchor Neurologic: Denies: headache Psychiatric: Denies: depression Skin: Denies: rash Hematologic: Denies: bleeding Musculoskeletal: Denies: pain Allergies: Coded Allergies: No Known Allergies (Unverified , 06/01/16) Objective Vital Signs Last 24 Hour Vital Signs Date Time Temp Pulse Resp B/P (MAP) Pulse Ox O2 Delivery O2 Flow Rate FiO2 08/07/18 15:47 97.4 71 18 115/77 (90) 94 08/07/18 12:03 97.0 74 18 101/71 (81) 95 08/07/18 09:18 76 118/75 08/07/18 08:30 Room Air 08/07/18 08:00 99.1 76 20 118/75 (89) 95 08/07/18 07:42 76 08/07/18 04:00 71 08/07/18 04:00 98.5 74 18 116/67 (83) 96 08/07/18 00:00 98.7 70 18 107/72 (84) 96 08/07/18 00:00 70 08/06/18 21:00 Room Air 08/06/18 20:00 97.5 82 19 113/78 (90) 97 08/06/18 20:00 77 08/06/18 18:57 75 112/81 Height (Feet): 5 Height (Inches): 8.00 Weight (Pounds): 159 General Appearance: no acute distress HEENT: normocephalic, atraumatic, anicteric, mucous membranes moist Respiratory/Chest: lungs clear, normal breath sounds, no respiratory distress, no accessory muscle use Cardiovascular: normal rate, regular rhythm Abdomen: normal bowel sounds, soft, non tender, no organomegaly, non distended Genitourinary: other - + melchor - urine clear Extremities: no cyanosis Skin: no rash Neurologic/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 Apparent elevation of the right hemidiaphragm is again noted. The left lung demonstrates a very faint opacity in the left midlung which is not evident previously. However, interstitial congestion in the left lung has improved. Impression: Persistent right-sided pleural effusion and fairly extensive parenchymal infiltrate or edema Improved left lung interstitial congestion. Focal patchy left lung abnormality was not evident previously, however, and could represent a small area of infiltrate Chest x-ray - 07/22/18 - COMPARISON: Chest x-ray 07/19/18 837 FINDINGS: Lungs: Increasing opacities of the right lung. Pleural space: Slightly increasing right pleural effusion. No pneumothorax. Heart: Unremarkable. No cardiomegaly. Mediastinum: Unremarkable. Bones/joints: Unremarkable. Tubes, lines and devices: Left PICC line tip appears further advanced into the right atrium. NG tube traverses diaphragm, tip is not seen. Upper abdomen: Midepigastric gastric surgical clips. IMPRESSION: 1. Left PICC line tip appears further advanced into the right atrium. 2. Increasing opacities of the right lung. 3. Slightly increasing right pleural effusion. 07/24/18 - chest x-ray - A single view chest radiograph was obtained. Findings: Hazy opacity at the right lung base may be a pleural effusion. Heart is enlarged. There is suggestion of mild interstitial edema. PICC line is present on the left. IMPRESSION: Suspected mild interstitial edema and a small right pleural effusion. Chest x-ray - 07/27/18- Comparison: 07/26/2018 A single view chest radiograph was obtained. Findings: Patchy infiltrate noted in the right lung. There is less right pleural effusion present. Heart is mildly enlarged. PICC line is noted. IMPRESSION: Diminished right pleural effusion which may have 5 decreased or shifted. Patchy right basal and perihilar infiltrate noted Chest x-ray - 07/30/18 Comparison: 07/30/2018 Findings: Interim resolution of previously demonstrated right pleural effusion, postthoracentesis. Hazy infiltrates are seen throughout the right mid and lower lung. The left lung and pleural space remain clear. Left arm PICC remains. Impression: Resolved right pleural effusion, post thoracentesis. No radiographically evident complication Persistent right mid and lower lung infiltrates Chest x-ray - 08/01/18 - Findings: Interim improvement of previously demonstrated right mid and lower lung parenchymal opacity, with some residual. There is a small amount of pleural fluid on the right, slightly increased from the prior exam. Left lung and pleural space are largely clear, without definite findings corresponding to the findings described on recent CT scan. The heart size is normal. Left arm PICC remains. Postsurgical changes of the upper abdomen are again noted. Right hemidiaphragm remains slightly elevated Impression: Improving but persistent right lung infiltrate, over 2 days. Other stable findings as described CT abdomen and pelvis: IMPRESSION: Status post cholecystectomy. Complex 13 x 5 x 13.7 cm mixed attenuation collection in and extending from the gallbladder fossa. Given the presence of high attenuation elements, this most likely represents a postoperative hematoma. Infected collections not completely excludable, particularly in view of the presence of some rim enhancement Endobiliary stent in good position. No biliary ductal dilatation Atelectasis of a significant portion of the right lower lobe. However, volume loss is significantly improved from 07/10/2018 Fairly extensive infiltrates in the right lower lobe, with less extensive infiltrates in the right middle lobe, right upper lobe, and left upper lobe. There may be a component of chronic fibrosis within the right lower lobe opacities as well PICC in good position Trace right pleural effusion Gastrostomy in good position 08/05/18 - chest x-ray - COMPARISON: Chest x-ray dated 08/01/18, 07/26/18, 07/15/18 FINDINGS: Lungs: Persistent patchy infiltrate at the periphery of the right mid and upper lung, not significantly changed compared to the prior exam. Mildly increased interstitial markings, unchanged. Pleural space: Unremarkable. The costophrenic angles are sharp. No visible pneumothorax. Heart: Unremarkable. No cardiomegaly. Mediastinum: Unremarkable. Bones/joints: Unremarkable. Tubes, lines and devices: EKG leads overlie the thorax. Left arm PICC with catheter tip in the region of the right atrium. Upper abdomen: Radiodense clips overlie the midepigastric region. IMPRESSION: No significant change in the patchy infiltrate at the periphery of the right mid and upper lung compared to the prior exam. Microbiology Date/Time Source Procedure Growth Status 07/30/18 21:15 Blood Blood Culture - Final NO GROWTH AFTER 5 DAYS Complete 07/12/18 20:50 Peritoneal Fluid Gram Stain - Final Complete 07/12/18 20:50 Peritoneal Fluid Aerobic Culture - Final NO GROWTH Complete 07/12/18 20:50 Peritoneal Fluid Anaerobic Culture - Final NO GROWTH AFTER 5 DAYS Complete 07/21/18 14:45 Sputum Induced Gram Stain - Final Complete 07/21/18 14:45 Sputum Culture - Final Nery Albicans Usual Respiratory Carolyn Complete 07/30/18 22:00 External Cath Urine Culture - Final NO GROWTH AFTER 48 HOURS Complete Laboratory Tests Test 08/07/18 06:00 White Blood Count 9.8 K/UL (4.8-10.8) Red Blood Count 3.27 M/UL (4.70-6.10) L Hemoglobin 10.7 G/DL (14.2-18.0) L Hematocrit 32.4 % (42.0-52.0) L Mean Corpuscular Volume 99 FL (80-99) Mean Corpuscular Hemoglobin 32.9 PG (27.0-31.0) H Mean Corpuscular Hemoglobin Concent 33.2 G/DL (32.0-36.0) Red Cell Distribution Width 13.4 % (11.6-14.8) Platelet Count 346 K/UL (150-450) Mean Platelet Volume 6.6 FL (6.5-10.1) Neutrophils (%) (Auto) 71.2 % (45.0-75.0) Lymphocytes (%) (Auto) 13.0 % (20.0-45.0) L Monocytes (%) (Auto) 7.9 % (1.0-10.0) Eosinophils (%) (Auto) 7.3 % (0.0-3.0) H Basophils (%) (Auto) 0.6 % (0.0-2.0) Sodium Level 139 MMOL/L (136-145) Potassium Level 4.1 MMOL/L (3.5-5.1) Chloride Level 106 MMOL/L (98-107) Carbon Dioxide Level 26 MMOL/L (21-32) Anion Gap 7 mmol/L (5-15) Blood Urea Nitrogen 13 mg/dL (7-18) Creatinine 1.4 MG/DL (0.55-1.30) H Estimat Glomerular Filtration Rate 51.2 mL/min (>60) Glucose Level 95 MG/DL (74-106) Calcium Level 8.5 MG/DL (8.5-10.1) Lipase 788 U/L (73-393) H Current Medications Medications (Trade) Dose Ordered Sig/[place] Route PRN Reason Start Time Stop Time Status Last Admin Dose Admin Acetaminophen (Tylenol) 650 mg Q4H PRN RECTAL Prn for Temp >100.5 08/07/18 10:58 08/14/18 10:57 Acetaminophen (Tylenol) 650 mg Q6H PRN ORAL Mild Pain/Temp > 100.5 08/07/18 12:00 09/05/18 11:59 Al Hydroxide/Mg Hydroxide (Mylanta) 15 ml Q6H PRN ORAL DYSPEPSIA 08/07/18 12:15 08/27/18 12:06 Chlorhexidine Gluconate (Estrella-Hex 2%) 1 applic DAILY@2000 TOPIC 08/07/18 20:00 08/15/18 19:59 Dextrose (Dextrose 50%) 25 ml Q30M PRN IV Hypoglycemia 08/07/18 11:15 08/17/18 21:04 Dextrose (Dextrose 50%) 50 ml Q30M PRN IV hypoglycemia 08/07/18 11:15 08/17/18 21:04 Diphenhydramine HCl (Benadryl) 12.5 mg Q6H PRN IVP Itching/Pruritis 08/07/18 10:58 08/27/18 10:57 Haloperidol Lactate (Haldol) 5 mg Q6H PRN IM Agitation 08/07/18 10:59 09/02/18 10:58 Heparin Sodium (Porcine) (Heparin 5000 units/ml) 5,000 units EVERY 12 HOURS SUBQ 08/07/18 21:00 09/02/18 08:59 Insulin Aspart (NovoLOG) AC+HS SUBQ 08/07/18 11:30 08/17/18 12:59 Levofloxacin 100 ml @ 100 mls/hr Q24H IVPB 08/07/18 20:00 08/10/18 19:59 Magnesium Hydroxide (Mom) 30 ml BIDPRN PRN ORAL Constipation 08/07/18 12:00 08/27/18 21:04 Metronidazole 100 ml @ 100 mls/hr Q8HR IVPB 08/07/18 14:00 08/10/18 21:59 08/07/18 14:18 Nicotine (Nicoderm) 1 patch Q24H TDERMAL 08/07/18 18:00 08/08/18 17:59 Ondansetron HCl (Zofran) 4 mg Q6H PRN IVP Nausea & Vomiting 08/07/18 10:59 08/27/18 10:58 Pantoprazole (Protonix) 40 mg EVERY 12 HOURS IVP 08/07/18 21:00 08/28/18 08:59 Propranolol HCl (Inderal) 80 mg BID ORAL 08/07/18 18:00 08/27/18 11:59 Tyler Madsen MD Aug 07, 2018 16:55
--- NOTE | 2018-08-07 19:40 | NUR ---
HAND-OFF: Report given to Magno ALARCON RN.
--- NOTE | 2018-08-07 19:45 | NUR ---
NURSE NOTES: Received report from JAVIER Abraham. Patient sleeping. No signs of distress or labored breathing. Bed in lowest position with call light in reach.
[2018-08-07 20:00] VITALS: BP 127/81
[2018-08-07] MEDS: Dyna-Hex 2% Top Sol 2oz TOPIC SCH (20:36)
--- NOTE | 2018-08-07 21:08 | General Progress Note ---
Assessment/Plan Assessment/Plan # Anemia of chronic disease due to underlying chronic medical issues, multifactorial, pancreatitis --> Anemia workup has been reviewed --> No evidence of hemolysis is noted, peripheral smear has been reviewed. --> Hgb goal >7. Transfuse prn. --> Epogen or iron at this time is not particularly indicated --> Medications have been reviewed # Thrombocytopenia is likely related to underlying reactive process from pancreatitis, acute, as well as alcoholic intoxication and myelosuppression --> also patient has a history of hepatitis C from prior admission --> smear has been reviewed --> heparin sq is okay if needed for dvt ppx # Erythrocytosis is likely related to dehydration --> hgb goal >7, no evidence of bleeding currently --> given ivf already # Leukocytosis no e/o annie infection --> could be due to reactive process v cholecystitis --> wbc trend: 22-->18-->16-->14-->18-->19-->15-->14 --> peripheral smear has been reviewed --> ercp repeat in 6-8 weeks, stent was placed # Pancreatitis with alcohol abuse --> recommend etoh cessation --> amylase and lipase prn --> Status post ERCP with sphincterotomy + stent placement # Transaminitis --> likely related to etoh abuse --> in past seen by gi # Alcohol abuse -- recommend cessation # PEG inserted left lower quadrant The timing of this note does not necessarily reflect the time of the patient was seen. Greatly appreciate consultation! Subjective Constitutional: Denies: no symptoms, chills, diaphoresis, fever, malaise, weakness, other HEENT: Denies: no symptoms, eye pain, blurred vision, tearing, double vision, ear pain, ear discharge, nose pain, nose congestion, throat pain, throat swelling, mouth pain, mouth swelling, other Cardiovascular: Denies: no symptoms, chest pain, edema, irregular heart rate, lightheadedness, palpitations, syncope, other Respiratory: Denies: no symptoms, cough, orthopnea, shortness of breath, SOB with excertion, SOB at rest, sputum, stridor, wheezing, other Gastrointestinal/Abdominal: Denies: no symptoms, abdomen distended, abdominal pain, black stools, tarry stools, blood in stool, constipated, diarrhea, difficulty swallowing, nausea, poor appetite, poor fluid intake, rectal bleeding , vomiting, other Genitourinary: Denies: no symptoms, burning, discharge, frequency, flank pain, hematuria, incontinence, pain, urgency, other Neurologic/Psychiatric: Denies: no symptoms, anxiety, depressed, emotional problems, headache, numbness, paresthesia, pre-existing deficit, seizure, tingling, tremors, weakness, other Endocrine: Denies: no symptoms, excessive sweating, flushing, intolerance to cold, intolerance to heat, increased hunger, increased thirst, increased urine, unexplained weight gain, unexplained weight loss, other Hematologic/Lymphatic: Denies: no symptoms, anemia, easy bleeding, easy bruising, other Allergies: Coded Allergies: No Known Allergies (Unverified , 06/01/16) Subjective 07/05: bp was high today and dc was cancelled until tomorow, on librium 07/06: wbc was high though other counts are better, no f/c 07/10: seen by bedside, heart rate increased, appears agitated, wbc 13.9 07/11: to get ercp tomorrow, surgery and gi following 07/12 ercp, sphincterotomy, stent placement surgery done today, currently having tremors and tachy. wbc 15.9, hgb 14, plt 429 07/13: Pt is intubated, seen by bedside,wbc 22, on abx, no acute distress 07/14: awake and comfortable, still intubated on vent, labs noted hb trending down, wbc 18, hgb 8. 07/16: seen by bedside, awake, comfortable, wbc 14, hgb 9, plt 613 07/17: awake, comfortable, status post ERCP with sphincterotomy wbc 21, hgb 10, plt 689. 07/18; seen by bedside, awake comfortable, on venturi mask, wbc 23, plt 754. 07/19: seen by bedside, awake and comfortable, no events, wbc 21 07/20: now out of the icu, doing better, wbc improved, remains on abx as per ID 07/22: Pt is awake, comfortable, wbc 16, lt 632, on abx 07/23 Pt is awake, comfortable, wbc 15, plt 574, on abx, CXR revelals, Increasing opacities of the right lung and Slightly increasing right pleural effusion 07/24: ng has been removed, seen by other consultants, hgb has improved, no bleeding 07/25: seen by bedside, awake, comfortable, on nasal canula, failed video swallow test and has some PO meds, wbc trending down. 07/26: awake, comfortable, G-tube placement consent signed 07/27: a fib overnignt, in ICU , awake, alert, responsive, PEG inserted today, wbc 19. 07/30: resting in bed awake,alert disoriented on and off,Thoracentesis done, wbc trending up again, Chest x-ray reveals, Resolved right pleural effusion, post thoracentesis. No radiographically evident complication Persistent right mid and lower lung infiltrates. 07/31: seen by bedside, awake, confused, no signs of acute distress. 08/01: Pt is resting in bed, no acute events reported, 08/02: no acute distress at this time, wbc 15, CXR reveals, Improving but persistent right lung infiltrate. 08/03: seen by bedside, awake, comfortable, no acute distress. wbc 15 08/05: on levo and flagyl as per id, no f/c, ct reviewed 08/06: awake, comfortable. not tolerating G-tube feedings 08/07: No acute events, awake and comfortable Denies acute distress. Objective Last 24 Hour Vital Signs Date Time Temp Pulse Resp B/P (MAP) Pulse Ox O2 Delivery O2 Flow Rate FiO2 08/07/18 17:10 71 115/77 08/07/18 15:47 97.4 71 18 115/77 (90) 94 08/07/18 12:03 97.0 74 18 101/71 (81) 95 08/07/18 09:18 76 118/75 08/07/18 08:30 Room Air 08/07/18 08:00 99.1 76 20 118/75 (89) 95 08/07/18 07:42 76 08/07/18 04:00 71 08/07/18 04:00 98.5 74 18 116/67 (83) 96 08/07/18 00:00 98.7 70 18 107/72 (84) 96 08/07/18 00:00 70 Intake and Output 08/06/18 08/07/18 18:59 06:59 Intake Total 500 ml 240 ml Output Total 400 ml 10 ml Balance 100 ml 230 ml Intake Oral 500 ml 240 ml Output Urine Total 400 ml Drainage Total 10 ml # Bowel Movements 1 1 Laboratory Tests 08/07/18 06:00: White Blood Count 9.8, Red Blood Count 3.27L, Hemoglobin 10.7L, Hematocrit 32.4L , Mean Corpuscular Volume 99, Mean Corpuscular Hemoglobin 32.9H, Mean Corpuscular Hemoglobin Concent 33.2, Red Cell Distribution Width 13.4, Platelet Count 346, Mean Platelet Volume 6.6, Neutrophils (%) (Auto) 71.2, Lymphocytes (% ) (Auto) 13.0L, Monocytes (%) (Auto) 7.9, Eosinophils (%) (Auto) 7.3H, Basophils (%) (Auto) 0.6, Sodium Level 139, Potassium Level 4.1, Chloride Level 106, Carbon Dioxide Level 26, Anion Gap 7, Blood Urea Nitrogen 13, Creatinine 1.4H, Estimat Glomerular Filtration Rate 51.2, Glucose Level 95, Calcium Level 8.5, Lipase 788H Height (Feet): 5 Height (Inches): 8.00 Weight (Pounds): 159 Objective Physical Exam General Appearance: A+O x3, NAD, ++ asterixis HEENT: normocephalic, atraumatic Neck: non-tender, normal alignment Respiratory/Chest: chest wall non-tender, lungs clear Cardiovascular/Chest: normal peripheral pulses, normal rate Abdomen: normal bowel sounds, non tender.++PEG Extremities: normal range of motion Guy Salazar MD Aug 07, 2018 21:08
--- NOTE | 2018-08-07 21:13 | Pulmonology Progress Note ---
Assessment/Plan Problems: (1) Cholecystitis, acute (2) Alcoholic pancreatitis (3) Pancreatitis, acute (4) Alcohol abuse (5) Abnormal LFTs (6) Gangrenous cholecystitis (7) Respiratory disorder with ventilator dependence Assessment & Plan: Extubated and TTF (8) Blood loss anemia (9) Pneumonia (10) Hepatitis C (11) Fatty liver Assessment/Plan CXR Optimize pulmonary hygiene/mobilize as tolerated PRN O2 PRN ATROVENT HHN's Abx per ID PO diet with aspiration precautions, per GI to remove GT @ F/U [place] volumes and renal function DVT Px: Hep SQ FC Subjective Allergies: Coded Allergies: No Known Allergies (Unverified , 06/01/16) Subjective Seen earlier AFVSS on RA Carlos PO Denies cough/congestion/SOB/wheezing, no FC Objective Last 24 Hour Vital Signs Date Time Temp Pulse Resp B/P (MAP) Pulse Ox O2 Delivery O2 Flow Rate FiO2 08/07/18 17:10 71 115/77 08/07/18 15:47 97.4 71 18 115/77 (90) 94 08/07/18 12:03 97.0 74 18 101/71 (81) 95 08/07/18 09:18 76 118/75 08/07/18 08:30 Room Air 08/07/18 08:00 99.1 76 20 118/75 (89) 95 08/07/18 07:42 76 08/07/18 04:00 71 08/07/18 04:00 98.5 74 18 116/67 (83) 96 08/07/18 00:00 98.7 70 18 107/72 (84) 96 08/07/18 00:00 70 Intake and Output 08/06/18 08/07/18 18:59 06:59 Intake Total 500 ml 240 ml Output Total 400 ml 10 ml Balance 100 ml 230 ml Intake Oral 500 ml 240 ml Output Urine Total 400 ml Drainage Total 10 ml # Bowel Movements 1 1 General Appearance: WD/WN, no acute distress HEENT: normocephalic, atraumatic, anicteric, mucous membranes moist Respiratory/Chest: chest wall non-tender, lungs clear, normal breath sounds, no respiratory distress, no accessory muscle use Cardiovascular: normal peripheral pulses, normal rate, regular rhythm Abdomen: normal bowel sounds, soft, non tender, no organomegaly, non distended , no mass, other - GT Extremities: no cyanosis, no clubbing, no edema Laboratory Tests 08/07/18 06:00: White Blood Count 9.8, Red Blood Count 3.27L, Hemoglobin 10.7L, Hematocrit 32.4L , Mean Corpuscular Volume 99, Mean Corpuscular Hemoglobin 32.9H, Mean Corpuscular Hemoglobin Concent 33.2, Red Cell Distribution Width 13.4, Platelet Count 346, Mean Platelet Volume 6.6, Neutrophils (%) (Auto) 71.2, Lymphocytes (% ) (Auto) 13.0L, Monocytes (%) (Auto) 7.9, Eosinophils (%) (Auto) 7.3H, Basophils (%) (Auto) 0.6, Sodium Level 139, Potassium Level 4.1, Chloride Level 106, Carbon Dioxide Level 26, Anion Gap 7, Blood Urea Nitrogen 13, Creatinine 1.4H, Estimat Glomerular Filtration Rate 51.2, Glucose Level 95, Calcium Level 8.5, Lipase 788H Current Medications Medications (Trade) Dose Ordered Sig/[place] Route PRN Reason Start Time Stop Time Status Last Admin Dose Admin Acetaminophen (Tylenol) 650 mg Q4H PRN RECTAL Prn for Temp >100.5 08/07/18 10:58 08/14/18 10:57 Acetaminophen (Tylenol) 650 mg Q6H PRN ORAL Mild Pain/Temp > 100.5 08/07/18 12:00 09/05/18 11:59 Al Hydroxide/Mg Hydroxide (Mylanta) 15 ml Q6H PRN ORAL DYSPEPSIA 08/07/18 12:15 08/27/18 12:06 Chlorhexidine Gluconate (Estrella-Hex 2%) 1 applic DAILY@2000 TOPIC 08/07/18 20:00 08/15/18 19:59 08/07/18 20:36 Dextrose (Dextrose 50%) 25 ml Q30M PRN IV Hypoglycemia 08/07/18 11:15 08/17/18 21:04 Dextrose (Dextrose 50%) 50 ml Q30M PRN IV hypoglycemia 08/07/18 11:15 08/17/18 21:04 Diphenhydramine HCl (Benadryl) 12.5 mg Q6H PRN IVP Itching/Pruritis 08/07/18 10:58 08/27/18 10:57 Haloperidol Lactate (Haldol) 5 mg Q6H PRN IM Agitation 08/07/18 10:59 09/02/18 10:58 Heparin Sodium (Porcine) (Heparin 5000 units/ml) 5,000 units EVERY 12 HOURS SUBQ 08/07/18 21:00 09/02/18 08:59 08/07/18 20:38 Insulin Aspart (NovoLOG) AC+HS SUBQ 08/07/18 11:30 08/17/18 12:59 Levofloxacin 100 ml @ 100 mls/hr Q24H IVPB 08/07/18 20:00 08/10/18 19:59 08/07/18 20:35 Magnesium Hydroxide (Mom) 30 ml BIDPRN PRN ORAL Constipation 08/07/18 12:00 08/27/18 21:04 Metronidazole 100 ml @ 100 mls/hr Q8HR IVPB 08/07/18 14:00 08/10/18 21:59 08/07/18 14:18 Nicotine (Nicoderm) 1 patch Q24H TDERMAL 08/07/18 18:00 08/08/18 17:59 08/07/18 17:10 Ondansetron HCl (Zofran) 4 mg Q6H PRN IVP Nausea & Vomiting 08/07/18 10:59 08/27/18 10:58 Pantoprazole (Protonix) 40 mg EVERY 12 HOURS IVP 08/07/18 21:00 08/28/18 08:59 08/07/18 20:36 Propranolol HCl (Inderal) 80 mg BID ORAL 08/07/18 18:00 08/27/18 11:59 Trenton Ladd MD Aug 07, 2018 21:13
[2018-08-07] MEDS ORDERED: Ipratropium 0.02% Inh Soln 2.5ml UD HHN PRN (21:15)
--- NOTE | 2018-08-07 23:46 | Cardiology Progress Note ---
Assessment/Plan Assessment/Plan 1. Paroxysmal SVT, converted to SR, continue propranolol. 2. Septic shock. 3. PAF, not a suitable candidate for anticoag therapy due to chronic liver disease. 4. Moderate pulmonary HTN. 5. Acute purulent gangrenous cholecystitis due to Klebsiella. 6. Anemia 7. Acute Hypoxic respiratory failure, s/p right thoracentesis. 8. Acute Metabolic Encephalopathy 9. Anemia Subjective Subjective Sinus rhythm at rate of 71. Objective Last 24 Hour Vital Signs Date Time Temp Pulse Resp B/P (MAP) Pulse Ox O2 Delivery O2 Flow Rate FiO2 08/07/18 21:00 Room Air 08/07/18 20:00 97.6 75 16 127/81 (96) 94 08/07/18 17:10 71 115/77 08/07/18 15:47 97.4 71 18 115/77 (90) 94 08/07/18 12:03 97.0 74 18 101/71 (81) 95 08/07/18 09:18 76 118/75 08/07/18 08:30 Room Air 08/07/18 08:00 99.1 76 20 118/75 (89) 95 08/07/18 07:42 76 08/07/18 04:00 71 08/07/18 04:00 98.5 74 18 116/67 (83) 96 08/07/18 00:00 98.7 70 18 107/72 (84) 96 08/07/18 00:00 70 Intake and Output 08/06/18 08/07/18 18:59 06:59 Intake Total 500 ml 240 ml Output Total 400 ml 10 ml Balance 100 ml 230 ml Intake Oral 500 ml 240 ml Output Urine Total 400 ml Drainage Total 10 ml # Bowel Movements 1 1 2D Echo: LVEF 65%, Mild LVH, RVSP 50 mmHg, Mild MR/WA, Normal LVD Laboratory Tests Test 08/07/18 06:00 White Blood Count 9.8 K/UL (4.8-10.8) Red Blood Count 3.27 M/UL (4.70-6.10) L Hemoglobin 10.7 G/DL (14.2-18.0) L Hematocrit 32.4 % (42.0-52.0) L Mean Corpuscular Volume 99 FL (80-99) Mean Corpuscular Hemoglobin 32.9 PG (27.0-31.0) H Mean Corpuscular Hemoglobin Concent 33.2 G/DL (32.0-36.0) Red Cell Distribution Width 13.4 % (11.6-14.8) Platelet Count 346 K/UL (150-450) Mean Platelet Volume 6.6 FL (6.5-10.1) Neutrophils (%) (Auto) 71.2 % (45.0-75.0) Lymphocytes (%) (Auto) 13.0 % (20.0-45.0) L Monocytes (%) (Auto) 7.9 % (1.0-10.0) Eosinophils (%) (Auto) 7.3 % (0.0-3.0) H Basophils (%) (Auto) 0.6 % (0.0-2.0) Sodium Level 139 MMOL/L (136-145) Potassium Level 4.1 MMOL/L (3.5-5.1) Chloride Level 106 MMOL/L (98-107) Carbon Dioxide Level 26 MMOL/L (21-32) Anion Gap 7 mmol/L (5-15) Blood Urea Nitrogen 13 mg/dL (7-18) Creatinine 1.4 MG/DL (0.55-1.30) H Estimat Glomerular Filtration Rate 51.2 mL/min (>60) Glucose Level 95 MG/DL (74-106) Calcium Level 8.5 MG/DL (8.5-10.1) Lipase 788 U/L (73-393) H Objective HEENT: normocephalic, atraumatic, anicteric, PERRL, dry mucous membrane Neck: no JVD, no carotid bruit. Respiratory/Chest: chest wall non-tender, lungs clear, normal breath sounds, no respiratory distress, no accessory muscle use Cardiovascular/Chest: Normal S1S2, no murmurs, gallops or rubs, rate,regular rhythm, tachycardic. Abdomen: normal bowel sounds, soft, no organomegaly, no mass, other - mild epigastric ttp Extremities: normal range of motion, non-tender, normal inspection, no calf tenderness, normal capillary refill, non-pitting Skin Exam: normal pigmentation, warm/dry Neurologic: no motor/sensory deficits, alert, oriented x 3, responsive, normal mood/affect Luis Patel MD Aug 07, 2018 23:46
[2018-08-08] VITALS: BP 121/78
[2018-08-08 04:00] VITALS: BP 130/89
[2018-08-08] MEDS: NovoLOG Insulin Flexpen SUBQ SCH ×4 (05:25→21:00)
[2018-08-08 06:58] LABS: BASOPHILS % (AUTO) 0.5 % (0.0-2.0); EOSINOPHILS % (AUTO) 7.3 % (0.0-3.0); HEMATOCRIT 34.7 % (42.0-52.0); HEMOGLOBIN 11.7 G/DL (14.2-18.0); LYMPHOCYTES % (AUTO) 11.6 % (20.0-45.0); MEAN CORPUSCULAR VOLUME 98 FL (80-99); MONOCYTES % (AUTO) 7.7 % (1.0-10.0); NEUTROPHILS % (AUTO) 72.9 % (45.0-75.0); PLATELET COUNT 319 K/UL (150-450); RED BLOOD COUNT 3.54 M/UL (4.70-6.10); RED CELL DISTRIBUTION WIDTH 13.3 % (11.6-14.8); WHITE BLOOD COUNT 10.9 K/UL (4.8-10.8)
[2018-08-08 07:33] LABS: ANION GAP 8 mmol/L (5-15); BLOOD UREA NITROGEN 13 mg/dL (7-18); CALCIUM 8.8 MG/DL (8.5-10.1); CARBON DIOXIDE 26 MMOL/L (21-32); CHLORIDE 104 MMOL/L (98-107); CREATININE 1.4 MG/DL (0.55-1.30); POTASSIUM 4.1 MMOL/L (3.5-5.1); SODIUM 138 MMOL/L (136-145)
--- NOTE | 2018-08-08 07:43 | NUR ---
HAND-OFF: Report given to JAVIER Abraham.
[2018-08-08 08:00] VITALS: BP 116/78
[2018-08-08] MEDS: Propranolol 40mg tab ORAL SCH ×2 (09:00→17:25)
[2018-08-08] MEDS: Pantoprazole Inj IVP SCH (09:08)
[2018-08-08] MEDS: Heparin 5000 units/ml inj SUBQ SCH ×2 (09:15→21:19)
--- NOTE | 2018-08-08 11:10 | GI Progress Note ---
Assessment/Plan Problems: (1) Abnormal LFTs ICD Codes: R79.89 - Other specified abnormal findings of blood chemistry SNOMED: 731083823 (2) Cholecystitis, acute ICD Codes: K81.0 - Acute cholecystitis SNOMED: 27720026 (3) Hepatitis C ICD Codes: B19.20 - Unspecified viral hepatitis C without hepatic coma SNOMED: 15586196 (4) Fatty liver ICD Codes: K76.0 - Fatty (change of) liver, not elsewhere classified SNOMED: 034266711 (5) Alcoholic pancreatitis ICD Codes: K85.20 - Alcohol induced acute pancreatitis without necrosis or infection SNOMED: 035077696 (6) Pancreatitis, acute ICD Codes: K85.90 - Acute pancreatitis without necrosis or infection, unspecified SNOMED: 647170052 Status: doing well, stable Status Narrative Discussed with Dr. Yip Assessment/Plan SUMMARY OF FINDINGS: 1. 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 2. Status post ERCP with sphincterotomy, balloon assistance sludge and some pus extraction from the common bile duct and then stent placement. s/p open jocelyn, now in ICU with pancreatitis hepatitis C positive Pancreatitis s/p PEG Tolerating G-tube feedings RECOMMENDATIONS: Repeat swallow evaluation, if patient passes then possible G-tube removal when patient returns for follow-up ERCP in September. -Okay to advance diet if patient passes swallow evaluation, the patient is on a mechanical soft diet now DC Reglan Trend lipase fu labs The patient will need repeat ERCP in 6 to 8 weeks for stent removal. approximately September 24, 2018. outpatient Hep C tx dc planning The patient was seen and examined at bedside and all new and available data was reviewed in the patients chart. I agree with the above findings, impression and plan. (Patient seen earlier today. Signature stamp does not reflect patient encounter time.). - Toñito Yip MD Subjective Subjective Denies any abdominal pain No nausea or vomiting Objective Last 24 Hour Vital Signs Date Time Temp Pulse Resp B/P (MAP) Pulse Ox O2 Delivery O2 Flow Rate FiO2 08/08/18 09:00 82 116/78 08/08/18 09:00 Room Air 08/08/18 08:00 98.6 82 19 116/78 (91) 97 08/08/18 07:10 67 Room Air 21 08/08/18 04:00 98.7 83 18 130/89 (103) 94 08/08/18 00:00 98.0 72 18 121/78 (92) 96 08/07/18 21:00 Room Air 08/07/18 20:00 97.6 75 16 127/81 (96) 94 08/07/18 17:10 71 115/77 08/07/18 15:47 97.4 71 18 115/77 (90) 94 08/07/18 12:03 97.0 74 18 101/71 (81) 95 Intake and Output 08/07/18 08/08/18 19:00 07:00 Intake Total 1020 ml 200 ml Output Total 3160 ml 960 ml Balance -2140 ml -760 ml Intake Oral 920 ml IV Total 100 ml 200 ml Output Urine Total 3150 ml 950 ml Drainage Total 10 ml 10 ml # Bowel Movements 1 Laboratory Tests Test 08/08/18 05:30 White Blood Count 10.9 K/UL (4.8-10.8) H Red Blood Count 3.54 M/UL (4.70-6.10) L Hemoglobin 11.7 G/DL (14.2-18.0) L Hematocrit 34.7 % (42.0-52.0) L Mean Corpuscular Volume 98 FL (80-99) Mean Corpuscular Hemoglobin 33.1 PG (27.0-31.0) H Mean Corpuscular Hemoglobin Concent 33.8 G/DL (32.0-36.0) Red Cell Distribution Width 13.3 % (11.6-14.8) Platelet Count 319 K/UL (150-450) Mean Platelet Volume 6.5 FL (6.5-10.1) Neutrophils (%) (Auto) 72.9 % (45.0-75.0) Lymphocytes (%) (Auto) 11.6 % (20.0-45.0) L Monocytes (%) (Auto) 7.7 % (1.0-10.0) Eosinophils (%) (Auto) 7.3 % (0.0-3.0) H Basophils (%) (Auto) 0.5 % (0.0-2.0) Sodium Level 138 MMOL/L (136-145) Potassium Level 4.1 MMOL/L (3.5-5.1) Chloride Level 104 MMOL/L (98-107) Carbon Dioxide Level 26 MMOL/L (21-32) Anion Gap 8 mmol/L (5-15) Blood Urea Nitrogen 13 mg/dL (7-18) Creatinine 1.4 MG/DL (0.55-1.30) H Estimat Glomerular Filtration Rate 51.2 mL/min (>60) Glucose Level 102 MG/DL (74-106) Calcium Level 8.8 MG/DL (8.5-10.1) Height (Feet): 5 Height (Inches): 8.00 Weight (Pounds): 159 General Appearance: WD/WN, no apparent distress, alert Cardiovascular: normal rate Respiratory/Chest: normal breath sounds, no respiratory distress Abdominal Exam: normal bowel sounds, non tender, soft, GT site - Clean dry and intact Extremities: normal range of motion, non-tender Objective Patient is more alert and oriented Able to swallow pills without any signs or symptoms of aspiration Sonja Neely NP Aug 08, 2018 11:10
--- NOTE | 2018-08-08 11:18 | NUR ---
ST NOTE: SWALLOW/SPEECH/COGNITION STATUS: PT SEEN AT BEDSIDE IN AM. ALERT, COOPERATIVE, FOLLOWS DIRECTIONS, ABLE TO EXPRESS WANTS AND NEEDS VERBALLY. PT TOLERATED CURRENT DIET([facility] SOFT-GROUND) WITH THIN LIQUIDS WITHOUT OVERT S/S OF ASPIRATION. EDUCATED AND TRAINED PT RE: SAFE SWALLOW TECHNIQUES(HEAD TURN TO L AND CHIN DOWN WITH EFFORTFUL SWALLOW, SWALLOW X 2). PT VERBALIZED THE GOOD UNDERSTANDING OF INFO GIVEN. CURRENTLY, PT PARTIALLY MET PO INTAKE GOALS. PT AND THE STAFF MET ASPIRATION PRECAUTIONS GOALS. D/W RN, REYES RE: PT'S CONDITIONS.
--- NOTE | 2018-08-08 11:19 | NUR ---
Social Service Note SW spoke with patient's [phone] to address impending dc planning. will be available to come to the hospital on Monday at 6am to obtain caregiver training. FWW can be provided to patient upon discharge. Prescriptions to be provided. Medical records and imaging to be provided to patient upon discharge for follow up appointment. Follow up appointment: [facility] [place] [id number] Gemma Gee MondayAugust 29 at 9am
--- NOTE | 2018-08-08 11:43 | General Progress Note ---
Assessment/Plan Assessment/Plan #Sepsis #Acute purulent gangrenous cholecystitis. #klebsiella cholecystitis #acute Hypoxic respiratory failure #Acute Metabolic Encephalopathy - due to alcohol withdrawal and sepsis - continue antibiotics per another 3 days - bcx x 2 ngtd - s/p ercp 07/12 - gen surg following s/p lap jocelyn converted to open jocelyn 07/12 - extubated on 07/16/18 - off o2 ncl - pulm following appreciated - pain control - appreciate surg recs - tpn -NG tube removed -s/p PEG -started on diet per NECK BAND SETTER recs #Acute Blood Loss Anemia - due to recent surgery - no overt bleeding noted currently - hgb 6.8 07/15, transfused 2U, 9.7 (07/16) - stable #Pleural Effusions - b/l - per mrcp - stable - pulm consult appreciated #Alcohol Pancreatitis #Intractable abdominal pain #intractable nausea/vomiting #Transaminitis #Alcohol Hepatitis #Alcohol withdrawals #Fatty Liver Disease #Hepatitis C - LFTs 446/532 - Lipase 687 - due to alcohol abuse - INR 1.0 - discriminant function, 4.5 , no need for steroids - US abd completed and reviewed, showing fatty liver disease. GS present, no obstruction noted - ppi - PRN antiemetics, zofran prn - Per GI, will need ERCP in 6-8 weeks for stent removal #Failure to thrive - due to alcohol withdrawals and the above - alcoholic pancreatitis - fluids #Alcohol Abuse - educated on cessation for 15 mins - patient states he understands and will try to quit - RN notified to monitor carefully with withdrawals - prn ativan - ciwa #Uncontrolled HTN and tachycardia overnight -all oral BP meds held for now -continue metoprolol IV q6h -transferred to ICU, on amiodarone drip #Tobacco abuse - smokes 1ppd - educated on smoking cessation for over 15 mins, states he understands the risks of smoking and will try to quit #Dysphagia -NECK BAND SETTER to re-evaluate today -Continue tube feeds via PEG #Hypernatremia - resoved -continue free water flushes via G-tube #Hypokalemia improved continue to monitor BMP Discharge Planning-likely discharge home Monday Subjective Date patient seen: Aug 08, 2018 Time patient seen: 11:42 ROS Limited/Unobtainable: No Constitutional: Denies: chills, fever Cardiovascular: Denies: chest pain Respiratory: Denies: cough Gastrointestinal/Abdominal: Denies: abdomen distended, abdominal pain Allergies: Coded Allergies: No Known Allergies (Unverified , 06/01/16) Subjective Medicine follow up for multiple medical problems including acute gangrenous cholecystitis, acute hypoxic respiratory failure, acute encephalopathy No new issues Started on a diet Discharge planning, tentative discharge home Monday Objective Last 24 Hour Vital Signs Date Time Temp Pulse Resp B/P (MAP) Pulse Ox O2 Delivery O2 Flow Rate FiO2 08/08/18 09:00 82 116/78 08/08/18 09:00 Room Air 08/08/18 08:00 98.6 82 19 116/78 (91) 97 08/08/18 07:10 67 Room Air 21 08/08/18 04:00 98.7 83 18 130/89 (103) 94 08/08/18 00:00 98.0 72 18 121/78 (92) 96 08/07/18 21:00 Room Air 08/07/18 20:00 97.6 75 16 127/81 (96) 94 08/07/18 17:10 71 115/77 08/07/18 15:47 97.4 71 18 115/77 (90) 94 08/07/18 12:03 97.0 74 18 101/71 (81) 95 Intake and Output 08/07/18 08/08/18 19:00 07:00 Intake Total 1020 ml 200 ml Output Total 3160 ml 960 ml Balance -2140 ml -760 ml Intake Oral 920 ml IV Total 100 ml 200 ml Output Urine Total 3150 ml 950 ml Drainage Total 10 ml 10 ml # Bowel Movements 1 Laboratory Tests 08/08/18 05:30: White Blood Count 10.9H, Red Blood Count 3.54L, Hemoglobin 11.7L, Hematocrit 34.7L, Mean Corpuscular Volume 98, Mean Corpuscular Hemoglobin 33.1H, Mean Corpuscular Hemoglobin Concent 33.8, Red Cell Distribution Width 13.3, Platelet Count 319, Mean Platelet Volume 6.5, Neutrophils (%) (Auto) 72.9, Lymphocytes (% ) (Auto) 11.6L, Monocytes (%) (Auto) 7.7, Eosinophils (%) (Auto) 7.3H, Basophils (%) (Auto) 0.5, Sodium Level 138, Potassium Level 4.1, Chloride Level 104, Carbon Dioxide Level 26, Anion Gap 8, Blood Urea Nitrogen 13, Creatinine 1.4H, Estimat Glomerular Filtration Rate 51.2, Glucose Level 102, Calcium Level 8.8 Height (Feet): 5 Height (Inches): 8.00 Weight (Pounds): 159 General Appearance: no apparent distress, alert EENT: PERRL/EOMI Neck: normal alignment, supple Cardiovascular: normal rate, regular rhythm Tomás Cruz MD Aug 08, 2018 11:43
[2018-08-08 12:00] VITALS: BP 120/84
--- NOTE | 2018-08-08 14:08 | NUR ---
NURSE NOTES: DR HAGER WITH ORDER TO D/C [facility] CATH. RN D/C'D [facility] CATH ORDERED. PT URINATING CLEAR YELLOW URINE. PT AXOX4. PT DENIES ANY TROUBLE WITH URINATION. IN NO APPARENT DISTRESS AT THIS TIME. WILL CONTINUE TO MONITOR.
--- NOTE | 2018-08-08 14:56 | General Progress Note ---
Progress Note Progress Note Surgery: okay to d/c diet as tolerated activity as tolerated packing and dressing changes as scheduled f/u in 2 weeks. thanks [place] Antonio Aug 08, 2018 14:56
[2018-08-08 16:00] VITALS: BP 121/91
--- NOTE | 2018-08-08 18:10 | NUR ---
NURSE NOTES: DR FOOTE AT BEDSIDE. PER PT, TOOK OUT SERA. UPON ASSESSMENT, STERI-STRIPS APPLIED TO AREAS THAT WERE HELD WITH SERA. PT DENIES PAIN AT THIS TIME. IN NO APPARENT DISTRESS AT THIS TIME. WILL CONTINUE TO MONITOR.
--- NOTE | 2018-08-08 19:51 | General Progress Note ---
Assessment/Plan Assessment/Plan # Anemia of chronic disease due to underlying chronic medical issues, multifactorial, pancreatitis --> Anemia workup has been reviewed --> No evidence of hemolysis is noted, peripheral smear has been reviewed. --> Hgb goal >7. Transfuse prn. --> Epogen or iron at this time is not particularly indicated --> Medications have been reviewed # Thrombocytopenia is likely related to underlying reactive process from pancreatitis, acute, as well as alcoholic intoxication and myelosuppression --> also patient has a history of hepatitis C from prior admission --> smear has been reviewed --> heparin sq is okay if needed for dvt ppx # Erythrocytosis is likely related to dehydration --> hgb goal >7, no evidence of bleeding currently --> given ivf already # Leukocytosis no e/o annie infection --> could be due to reactive process v cholecystitis --> wbc trend: 22-->18-->16-->14-->18-->19-->15-->14 --> peripheral smear has been reviewed --> ercp repeat in 6-8 weeks, stent was placed # Pancreatitis with alcohol abuse --> recommend etoh cessation --> amylase and lipase prn --> Status post ERCP with sphincterotomy + stent placement # Transaminitis --> likely related to etoh abuse --> in past seen by gi # Alcohol abuse -- recommend cessation # PEG inserted left lower quadrant The timing of this note does not necessarily reflect the time of the patient was seen. Greatly appreciate consultation! Subjective Constitutional: Denies: no symptoms, chills, diaphoresis, fever, malaise, weakness, other HEENT: Denies: no symptoms, eye pain, blurred vision, tearing, double vision, ear pain, ear discharge, nose pain, nose congestion, throat pain, throat swelling, mouth pain, mouth swelling, other Cardiovascular: Denies: no symptoms, chest pain, edema, irregular heart rate, lightheadedness, palpitations, syncope, other Respiratory: Denies: no symptoms, cough, orthopnea, shortness of breath, SOB with excertion, SOB at rest, sputum, stridor, wheezing, other Gastrointestinal/Abdominal: Denies: no symptoms, abdomen distended, abdominal pain, black stools, tarry stools, blood in stool, constipated, diarrhea, difficulty swallowing, nausea, poor appetite, poor fluid intake, rectal bleeding , vomiting, other Genitourinary: Denies: no symptoms, burning, discharge, frequency, flank pain, hematuria, incontinence, pain, urgency, other Neurologic/Psychiatric: Denies: no symptoms, anxiety, depressed, emotional problems, headache, numbness, paresthesia, pre-existing deficit, seizure, tingling, tremors, weakness, other Endocrine: Denies: no symptoms, excessive sweating, flushing, intolerance to cold, intolerance to heat, increased hunger, increased thirst, increased urine, unexplained weight gain, unexplained weight loss, other Allergies: Coded Allergies: No Known Allergies (Unverified , 06/01/16) Subjective 07/05: bp was high today and dc was cancelled until tomorow, on librium 07/06: wbc was high though other counts are better, no f/c 07/10: seen by bedside, heart rate increased, appears agitated, wbc 13.9 07/11: to get ercp tomorrow, surgery and gi following 07/12 ercp, sphincterotomy, stent placement surgery done today, currently having tremors and tachy. wbc 15.9, hgb 14, plt 429 07/13: Pt is intubated, seen by bedside,wbc 22, on abx, no acute distress 07/14: awake and comfortable, still intubated on vent, labs noted hb trending down, wbc 18, hgb 8. 07/16: seen by bedside, awake, comfortable, wbc 14, hgb 9, plt 613 07/17: awake, comfortable, status post ERCP with sphincterotomy wbc 21, hgb 10, plt 689. 07/18; seen by bedside, awake comfortable, on venturi mask, wbc 23, plt 754. 07/19: seen by bedside, awake and comfortable, no events, wbc 21 07/20: now out of the icu, doing better, wbc improved, remains on abx as per ID 07/22: Pt is awake, comfortable, wbc 16, lt 632, on abx 07/23 Pt is awake, comfortable, wbc 15, plt 574, on abx, CXR revelals, Increasing opacities of the right lung and Slightly increasing right pleural effusion 07/24: ng has been removed, seen by other consultants, hgb has improved, no bleeding 07/25: seen by bedside, awake, comfortable, on nasal canula, failed video swallow test and has some PO meds, wbc trending down. 07/26: awake, comfortable, G-tube placement consent signed 07/27: a janell overnignt, in ICU , awake, alert, responsive, PEG inserted today, wbc 19. 07/30: resting in bed awake,alert disoriented on and off,Thoracentesis done, wbc trending up again, Chest x-ray reveals, Resolved right pleural effusion, post thoracentesis. No radiographically evident complication Persistent right mid and lower lung infiltrates. 07/31: seen by bedside, awake, confused, no signs of acute distress. 08/01: Pt is resting in bed, no acute events reported, 08/02: no acute distress at this time, wbc 15, CXR reveals, Improving but persistent right lung infiltrate. 08/03: seen by bedside, awake, comfortable, no acute distress. wbc 15 08/05: on levo and flagyl as per id, no f/c, ct reviewed 08/06: awake, comfortable. not tolerating G-tube feedings 08/07: No acute events, awake and comfortable Denies acute distress. 08/08: seen by bedside, awake, comfortable, denies nausea or vomiting, or sob. Objective Last 24 Hour Vital Signs Date Time Temp Pulse Resp B/P (MAP) Pulse Ox O2 Delivery O2 Flow Rate FiO2 08/08/18 17:25 88 121/91 08/08/18 16:00 98.0 88 21 121/91 (101) 97 08/08/18 12:00 98.6 84 18 120/84 (96) 59 08/08/18 09:00 82 116/78 08/08/18 09:00 Room Air 08/08/18 08:00 98.6 82 19 116/78 (91) 97 08/08/18 07:10 67 Room Air 21 08/08/18 04:00 98.7 83 18 130/89 (103) 94 08/08/18 00:00 98.0 72 18 121/78 (92) 96 08/07/18 21:00 Room Air 08/07/18 20:00 97.6 75 16 127/81 (96) 94 Intake and Output 08/07/18 08/08/18 19:00 07:00 Intake Total 1020 ml 200 ml Output Total 3160 ml 960 ml Balance -2140 ml -760 ml Intake Oral 920 ml IV Total 100 ml 200 ml Output Urine Total 3150 ml 950 ml Drainage Total 10 ml 10 ml # Bowel Movements 1 Laboratory Tests 08/08/18 05:30: White Blood Count 10.9H, Red Blood Count 3.54L, Hemoglobin 11.7L, Hematocrit 34.7L, Mean Corpuscular Volume 98, Mean Corpuscular Hemoglobin 33.1H, Mean Corpuscular Hemoglobin Concent 33.8, Red Cell Distribution Width 13.3, Platelet Count 319, Mean Platelet Volume 6.5, Neutrophils (%) (Auto) 72.9, Lymphocytes (% ) (Auto) 11.6L, Monocytes (%) (Auto) 7.7, Eosinophils (%) (Auto) 7.3H, Basophils (%) (Auto) 0.5, Sodium Level 138, Potassium Level 4.1, Chloride Level 104, Carbon Dioxide Level 26, Anion Gap 8, Blood Urea Nitrogen 13, Creatinine 1.4H, Estimat Glomerular Filtration Rate 51.2, Glucose Level 102, Calcium Level 8.8 Height (Feet): 5 Height (Inches): 8.00 Weight (Pounds): 159 Objective Physical Exam General Appearance: A+O x3, NAD, ++ asterixis HEENT: normocephalic, atraumatic Neck: non-tender, normal alignment Respiratory/Chest: chest wall non-tender, lungs clear Cardiovascular/Chest: normal peripheral pulses, normal rate Abdomen: normal bowel sounds, non tender.++PEG Extremities: normal range of motion Guy Salazar MD Aug 08, 2018 19:51
--- NOTE | 2018-08-08 19:53 | NUR ---
HAND-OFF: Report given to Kiki BAILEY RN.
[2018-08-08 20:00] VITALS: BP 129/86
--- NOTE | 2018-08-08 20:21 | NUR ---
CASE MANAGEMENT: REVIEW SI: ALCOHOLIC PANCREATITIS . ACUTE PURULENT GANGRENOUS CHOLECYSTITIS . RIGHT PLEURAL EFFUSION RIGHT THORACENTESIS 07/30 EGD w/PEG PLACEMENT 07/27 LAPAROSCOPIC CONVERTED TO OPEN CHOLECYSTECTOMY 07/12 T 98.6 HR 82 RR 19 BP 116/78 SAT 97% ROOM AIR WBC 10.9 H/H 11.7/34.7 IS: PROTONIX IV QD LEVOFLOXACIN IV Q24HR FLAGYL IV Q8HR INDERAL PO BID NOVOLOG SQ AC/HR GT FEEDING GLUCERNA 1.5 @ 60ML/HR MED/SURG STATUS DCP: PATIENT IS FROM HOME
--- NOTE | 2018-08-08 20:53 | Pulmonology Progress Note ---
Assessment/Plan Problems: (1) Cholecystitis, acute (2) Alcoholic pancreatitis (3) Pancreatitis, acute (4) Alcohol abuse (5) Abnormal LFTs (6) Gangrenous cholecystitis (7) Respiratory disorder with ventilator dependence Assessment & Plan: Extubated and TTF (8) Blood loss anemia (9) Pneumonia (10) Hepatitis C (11) Fatty liver Assessment/Plan CXR Optimize pulmonary hygiene/mobilize as tolerated PRN O2 PRN ATROVENT HHN's Abx per ID PO diet with aspiration precautions, per GI to remove GT @ F/U [place] volumes and renal function DVT Px: Hep SQ FC Subjective Allergies: Coded Allergies: No Known Allergies (Unverified , 06/01/16) Subjective AFVSS on RA Carlos PO Denies cough/congestion/SOB/wheezing, no FC Objective Last 24 Hour Vital Signs Date Time Temp Pulse Resp B/P (MAP) Pulse Ox O2 Delivery O2 Flow Rate FiO2 08/08/18 17:25 88 121/91 08/08/18 16:00 98.0 88 21 121/91 (101) 97 08/08/18 12:00 98.6 84 18 120/84 (96) 59 08/08/18 09:00 82 116/78 08/08/18 09:00 Room Air 08/08/18 08:00 98.6 82 19 116/78 (91) 97 08/08/18 07:10 67 Room Air 21 08/08/18 04:00 98.7 83 18 130/89 (103) 94 08/08/18 00:00 98.0 72 18 121/78 (92) 96 08/07/18 21:00 Room Air Intake and Output 08/07/18 08/08/18 19:00 07:00 Intake Total 1020 ml 200 ml Output Total 3160 ml 960 ml Balance -2140 ml -760 ml Intake Oral 920 ml IV Total 100 ml 200 ml Output Urine Total 3150 ml 950 ml Drainage Total 10 ml 10 ml # Bowel Movements 1 General Appearance: WD/WN, no acute distress HEENT: normocephalic, atraumatic, anicteric, mucous membranes moist Respiratory/Chest: chest wall non-tender, lungs clear, normal breath sounds, no respiratory distress, no accessory muscle use Cardiovascular: normal peripheral pulses, normal rate, regular rhythm Abdomen: normal bowel sounds, soft, non tender, no organomegaly, non distended , no mass, other - GT Extremities: no cyanosis, no clubbing, no edema Laboratory Tests 08/08/18 05:30: White Blood Count 10.9H, Red Blood Count 3.54L, Hemoglobin 11.7L, Hematocrit 34.7L, Mean Corpuscular Volume 98, Mean Corpuscular Hemoglobin 33.1H, Mean Corpuscular Hemoglobin Concent 33.8, Red Cell Distribution Width 13.3, Platelet Count 319, Mean Platelet Volume 6.5, Neutrophils (%) (Auto) 72.9, Lymphocytes (% ) (Auto) 11.6L, Monocytes (%) (Auto) 7.7, Eosinophils (%) (Auto) 7.3H, Basophils (%) (Auto) 0.5, Sodium Level 138, Potassium Level 4.1, Chloride Level 104, Carbon Dioxide Level 26, Anion Gap 8, Blood Urea Nitrogen 13, Creatinine 1.4H, Estimat Glomerular Filtration Rate 51.2, Glucose Level 102, Calcium Level 8.8 Current Medications Medications (Trade) Dose Ordered Sig/[place] Route PRN Reason Start Time Stop Time Status Last Admin Dose Admin Acetaminophen (Tylenol) 650 mg Q4H PRN RECTAL Prn for Temp >100.5 08/07/18 10:58 08/14/18 10:57 Acetaminophen (Tylenol) 650 mg Q6H PRN ORAL Mild Pain/Temp > 100.5 08/07/18 12:00 09/05/18 11:59 08/08/18 05:02 Al Hydroxide/Mg Hydroxide (Mylanta) 15 ml Q6H PRN ORAL DYSPEPSIA 08/07/18 12:15 08/27/18 12:06 Chlorhexidine Gluconate (Estrella-Hex 2%) 1 applic DAILY@2000 TOPIC 08/07/18 20:00 08/15/18 19:59 08/07/18 20:36 Dextrose (Dextrose 50%) 25 ml Q30M PRN IV Hypoglycemia 08/07/18 11:15 08/17/18 21:04 Dextrose (Dextrose 50%) 50 ml Q30M PRN IV hypoglycemia 08/07/18 11:15 08/17/18 21:04 Diphenhydramine HCl (Benadryl) 12.5 mg Q6H PRN IVP Itching/Pruritis 08/07/18 10:58 08/27/18 10:57 Haloperidol Lactate (Haldol) 5 mg Q6H PRN IM Agitation 08/07/18 10:59 09/02/18 10:58 Heparin Sodium (Porcine) (Heparin 5000 units/ml) 5,000 units EVERY 12 HOURS SUBQ 08/07/18 21:00 09/02/18 08:59 08/08/18 09:15 Insulin Aspart (NovoLOG) AC+HS SUBQ 08/07/18 11:30 08/17/18 12:59 Ipratropium Hawkeye (Atrovent) 500 mcg Q4H PRN HHN Shortness of Breath 08/07/18 21:15 08/12/18 21:14 Levofloxacin 100 ml @ 100 mls/hr Q24H IVPB 08/07/18 20:00 08/10/18 19:59 08/07/18 20:35 Magnesium Hydroxide (Mom) 30 ml BIDPRN PRN ORAL Constipation 08/07/18 12:00 08/27/18 21:04 Metronidazole 100 ml @ 100 mls/hr Q8HR IVPB 08/07/18 14:00 08/10/18 21:59 08/08/18 13:43 Ondansetron HCl (Zofran) 4 mg Q6H PRN IVP Nausea & Vomiting 08/07/18 10:59 08/27/18 10:58 Pantoprazole (Protonix) 40 mg DAILY IVP 08/09/18 09:00 08/28/18 08:59 Propranolol HCl (Inderal) 80 mg BID ORAL 08/07/18 18:00 08/27/18 11:59 Trenton Ladd MD Aug 08, 2018 20:53
[2018-08-08] MEDS: Dyna-Hex 2% Top Sol 2oz TOPIC SCH (20:58)
--- NOTE | 2018-08-08 23:38 | Cardiology Progress Note ---
Assessment/Plan Assessment/Plan 1. Paroxysmal SVT, converted to SR, continue propranolol. 2. Septic shock, resolved. 3. PAF, not a suitable candidate for anticoag therapy due to chronic liver disease. 4. Moderate pulmonary HTN. 5. Acute purulent gangrenous cholecystitis due to Klebsiella. 6. Anemia 7. Acute Hypoxic respiratory failure, s/p right thoracentesis. 8. Acute Metabolic Encephalopathy Subjective Subjective Transferred to the non-tele bed. No cardiac events noted, Objective Last 24 Hour Vital Signs Date Time Temp Pulse Resp B/P (MAP) Pulse Ox O2 Delivery O2 Flow Rate FiO2 08/08/18 21:00 Room Air 08/08/18 20:00 97.7 75 18 129/86 (100) 94 08/08/18 20:00 71 Room Air 21 08/08/18 17:25 88 121/91 08/08/18 16:00 98.0 88 21 121/91 (101) 97 08/08/18 12:00 98.6 84 18 120/84 (96) 59 08/08/18 09:00 82 116/78 08/08/18 09:00 Room Air 08/08/18 08:00 98.6 82 19 116/78 (91) 97 08/08/18 07:10 67 Room Air 21 08/08/18 04:00 98.7 83 18 130/89 (103) 94 08/08/18 00:00 98.0 72 18 121/78 (92) 96 Intake and Output 08/07/18 08/08/18 18:59 06:59 Intake Total 1020 ml 200 ml Output Total 3160 ml 960 ml Balance -2140 ml -760 ml Intake Oral 920 ml IV Total 100 ml 200 ml Output Urine Total 3150 ml 950 ml Drainage Total 10 ml 10 ml # Bowel Movements 1 2D Echo: LVEF 65%, Mild LVH, RVSP 50 mmHg, Mild MR/TX, Normal LVD Laboratory Tests Test 08/08/18 05:30 White Blood Count 10.9 K/UL (4.8-10.8) H Red Blood Count 3.54 M/UL (4.70-6.10) L Hemoglobin 11.7 G/DL (14.2-18.0) L Hematocrit 34.7 % (42.0-52.0) L Mean Corpuscular Volume 98 FL (80-99) Mean Corpuscular Hemoglobin 33.1 PG (27.0-31.0) H Mean Corpuscular Hemoglobin Concent 33.8 G/DL (32.0-36.0) Red Cell Distribution Width 13.3 % (11.6-14.8) Platelet Count 319 K/UL (150-450) Mean Platelet Volume 6.5 FL (6.5-10.1) Neutrophils (%) (Auto) 72.9 % (45.0-75.0) Lymphocytes (%) (Auto) 11.6 % (20.0-45.0) L Monocytes (%) (Auto) 7.7 % (1.0-10.0) Eosinophils (%) (Auto) 7.3 % (0.0-3.0) H Basophils (%) (Auto) 0.5 % (0.0-2.0) Sodium Level 138 MMOL/L (136-145) Potassium Level 4.1 MMOL/L (3.5-5.1) Chloride Level 104 MMOL/L (98-107) Carbon Dioxide Level 26 MMOL/L (21-32) Anion Gap 8 mmol/L (5-15) Blood Urea Nitrogen 13 mg/dL (7-18) Creatinine 1.4 MG/DL (0.55-1.30) H Estimat Glomerular Filtration Rate 51.2 mL/min (>60) Glucose Level 102 MG/DL (74-106) Calcium Level 8.8 MG/DL (8.5-10.1) Objective HEENT: normocephalic, atraumatic, anicteric, PERRL, dry mucous membrane Neck: no JVD, no carotid bruit. Respiratory/Chest: chest wall non-tender, lungs clear, normal breath sounds, no respiratory distress, no accessory muscle use Cardiovascular/Chest: Normal S1S2, no murmurs, gallops or rubs, rate,regular rhythm. Abdomen: normal bowel sounds, soft, no organomegaly, no mass, other - mild epigastric ttp Extremities: normal range of motion, non-tender, normal inspection, no calf tenderness, normal capillary refill, non-pitting Skin Exam: normal pigmentation, warm/dry Neurologic: no motor/sensory deficits, alert, oriented x 3, responsive, normal mood/affect Luis Patel MD Aug 08, 2018 23:38
[2018-08-09] VITALS: BP 118/72
[2018-08-09] MEDS: NovoLOG Insulin Flexpen SUBQ SCH ×4 (06:30→21:00)
--- NOTE | 2018-08-09 07:30 | NUR ---
HAND-OFF: Report given to CATRACHO HERRERA.
[2018-08-09 07:45] LABS: BASOPHILS % (AUTO) 0.9 % (0.0-2.0); EOSINOPHILS % (AUTO) 5.5 % (0.0-3.0); HEMATOCRIT 35.5 % (42.0-52.0); HEMOGLOBIN 12.1 G/DL (14.2-18.0); LYMPHOCYTES % (AUTO) 9.7 % (20.0-45.0); MEAN CORPUSCULAR VOLUME 97 FL (80-99); MONOCYTES % (AUTO) 9.3 % (1.0-10.0); NEUTROPHILS % (AUTO) 74.6 % (45.0-75.0); PLATELET COUNT 396 K/UL (150-450); RED BLOOD COUNT 3.64 M/UL (4.70-6.10); RED CELL DISTRIBUTION WIDTH 13.3 % (11.6-14.8); WHITE BLOOD COUNT 11.6 K/UL (4.8-10.8)
[2018-08-09 07:57] LABS: ANION GAP 9 mmol/L (5-15); BLOOD UREA NITROGEN 11 mg/dL (7-18); CARBON DIOXIDE 25 MMOL/L (21-32); CHLORIDE 104 MMOL/L (98-107); CREATININE 1.4 MG/DL (0.55-1.30); SODIUM 138 MMOL/L (136-145)
[2018-08-09 08:00] VITALS: BP 140/94
--- NOTE | 2018-08-09 09:52 | NUR ---
RADIOLOGY DEPT CHEST X-RAY DONE.-P.DYE
--- NOTE | 2018-08-09 10:11 | General Progress Note ---
Assessment/Plan Assessment/Plan #Sepsis #Acute purulent gangrenous cholecystitis. #klebsiella cholecystitis #acute Hypoxic respiratory failure #Acute Metabolic Encephalopathy - due to alcohol withdrawal and sepsis - continue antibiotics per another 3 days - bcx x 2 ngtd - s/p ercp 07/12 - gen surg following s/p lap jocelyn converted to open jocelyn 07/12 - extubated on 07/16/18 - off o2 ncl - pulm following appreciated - pain control - appreciate surg recs - tpn -NG tube removed -s/p PEG -continue PO diet #Acute Blood Loss Anemia - due to recent surgery - no overt bleeding noted currently - hgb 6.8 07/15, transfused 2U, 9.7 (07/16) - stable #Pleural Effusions - b/l - per mrcp - stable - pulm consult appreciated #Alcohol Pancreatitis #Intractable abdominal pain #intractable nausea/vomiting #Transaminitis #Alcohol Hepatitis #Alcohol withdrawals #Fatty Liver Disease #Hepatitis C - LFTs 446/532 - Lipase 687 - due to alcohol abuse - INR 1.0 - discriminant function, 4.5 , no need for steroids - US abd completed and reviewed, showing fatty liver disease. GS present, no obstruction noted - ppi - PRN antiemetics, zofran prn - Per GI, will need ERCP in 6-8 weeks for stent removal #Failure to thrive - due to alcohol withdrawals and the above - alcoholic pancreatitis - fluids #Alcohol Abuse - educated on cessation for 15 mins - patient states he understands and will try to quit - RN notified to monitor carefully with withdrawals - prn ativan - ciwa #Uncontrolled HTN and tachycardia overnight -all oral BP meds held for now -continue metoprolol IV q6h -transferred to ICU, on amiodarone drip #Tobacco abuse - smokes 1ppd - educated on smoking cessation for over 15 mins, states he understands the risks of smoking and will try to quit #Dysphagia -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 -Continue tube feeds via PEG #Hypernatremia - resoved -continue free water flushes via G-tube #Hypokalemia improved continue to monitor BMP Anticipate discharge home tomorrow Subjective Date patient seen: Aug 09, 2018 Time patient seen: 08:45 ROS Limited/Unobtainable: No Cardiovascular: Denies: chest pain Respiratory: Denies: cough Gastrointestinal/Abdominal: Denies: abdomen distended, abdominal pain Allergies: Coded Allergies: No Known Allergies (Unverified , 06/01/16) Subjective Medicine follow up for multiple medical problems including acute gangrenous cholecystitis, acute hypoxic respiratory failure, acute encephalopathy No new issues Tolerating diet Plan for discharge tomorrow Objective Last 24 Hour Vital Signs Date Time Temp Pulse Resp B/P (MAP) Pulse Ox O2 Delivery O2 Flow Rate FiO2 08/09/18 08:58 92 Room Air 21 08/09/18 00:00 98.0 75 18 118/72 (87) 08/08/18 21:00 Room Air 08/08/18 20:00 97.7 75 18 129/86 (100) 94 08/08/18 20:00 71 Room Air 21 08/08/18 17:25 88 121/91 08/08/18 16:00 98.0 88 21 121/91 (101) 97 08/08/18 12:00 98.6 84 18 120/84 (96) 59 Intake and Output 08/08/18 08/09/18 19:00 07:00 Intake Total 1220 ml 100 ml Output Total 1200 ml Balance 1220 ml -1100 ml Intake Oral 1020 ml IV Total 200 ml 100 ml Output Urine Total 1200 ml Laboratory Tests 08/09/18 06:30: White Blood Count 11.6H, Red Blood Count 3.64L, Hemoglobin 12.1L, Hematocrit 35.5L, Mean Corpuscular Volume 97, Mean Corpuscular Hemoglobin 33.3H, Mean Corpuscular Hemoglobin Concent 34.2, Red Cell Distribution Width 13.3, Platelet Count 396, Mean Platelet Volume 6.9, Neutrophils (%) (Auto) 74.6, Lymphocytes (% ) (Auto) 9.7L, Monocytes (%) (Auto) 9.3, Eosinophils (%) (Auto) 5.5H, Basophils (%) (Auto) 0.9, Sodium Level 138, Potassium Level 4.0, Chloride Level 104, Carbon Dioxide Level 25, Anion Gap 9, Blood Urea Nitrogen 11, Creatinine 1.4H, Estimat Glomerular Filtration Rate 51.2, Glucose Level 102, Calcium Level 9.0 Height (Feet): 5 Height (Inches): 8.00 Weight (Pounds): 159 General Appearance: alert EENT: normal ENT inspection Neck: non-tender, supple Cardiovascular: normal rate, regular rhythm Respiratory/Chest: chest wall non-tender, lungs clear, normal breath sounds Abdomen: normal bowel sounds, non tender, soft Tomás Cruz MD Aug 09, 2018 10:11
[2018-08-09] MEDS: Pantoprazole Inj IVP SCH (10:27)
[2018-08-09] MEDS: Propranolol 40mg tab ORAL SCH ×2 (10:28→17:42)
[2018-08-09] MEDS: Heparin 5000 units/ml inj SUBQ SCH ×2 (10:31→21:00)
--- NOTE | 2018-08-09 10:34 | Diagnostic Imaging Report ---
Indication: Cough Technique: One view of the chest Comparison: 08/05/2017 Findings: Hazy opacity in the right mid and lower lung appears improved although persists in the perihilar region. Interstitial opacities in the right upper lobe persist. Small right pleural effusion persists Left arm PICC remains. Left lung and pleural space remains clear. Heart size is normal.. Epigastric surgical clips again noted Impression: Improved right mid and lower lung infiltrate, over 2 days, with some persistent disease. Stable right upper lobe interstitial opacities and small right pleural effusion
[2018-08-09 12:00] VITALS: BP 124/83
--- NOTE | 2018-08-09 12:02 | GI Progress Note ---
Assessment/Plan Problems: (1) Abnormal LFTs ICD Codes: R79.89 - Other specified abnormal findings of blood chemistry SNOMED: 798877548 (2) Cholecystitis, acute ICD Codes: K81.0 - Acute cholecystitis SNOMED: 15886443 (3) Hepatitis C ICD Codes: B19.20 - Unspecified viral hepatitis C without hepatic coma SNOMED: 91884124 (4) Fatty liver ICD Codes: K76.0 - Fatty (change of) liver, not elsewhere classified SNOMED: 134327430 (5) Alcoholic pancreatitis ICD Codes: K85.20 - Alcohol induced acute pancreatitis without necrosis or infection SNOMED: 978668728 (6) Pancreatitis, acute ICD Codes: K85.90 - Acute pancreatitis without necrosis or infection, unspecified SNOMED: 556555056 Status: doing well, stable Status Narrative Discussed with Dr. Yip. Assessment/Plan SUMMARY OF FINDINGS: 1. 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 2. Status post ERCP with sphincterotomy, balloon assistance sludge and some pus extraction from the common bile duct and then stent placement. s/p open jocelyn, now in ICU with pancreatitis hepatitis C positive Pancreatitis s/p PEG Tolerating G-tube feedings RECOMMENDATIONS: okay for GT to be removed, min 1 month after PEG. advanced diet DC Reglan Trend lipase fu labs The patient will need repeat ERCP in 6 to 8 weeks for stent removal. approximately September 24, 2018. outpatient Hep C tx dc planning I explained to the patient that he must have his stent removed at the above date. He acknowledged. okay for DC per GI standpoint The patient was seen and examined at bedside and all new and available data was reviewed in the patients chart. I agree with the above findings, impression and plan. (Patient seen earlier today. Signature stamp does not reflect patient encounter time.). - Toñito Yip MD Subjective Subjective Denies any abdominal pain No nausea or vomiting Objective Last 24 Hour Vital Signs Date Time Temp Pulse Resp B/P (MAP) Pulse Ox O2 Delivery O2 Flow Rate FiO2 08/09/18 10:28 92 140/94 08/09/18 09:00 Room Air 08/09/18 08:58 92 Room Air 21 08/09/18 08:00 98.5 102 20 140/94 (109) 95 08/09/18 00:00 98.0 75 18 118/72 (87) 08/08/18 21:00 Room Air 08/08/18 20:00 97.7 75 18 129/86 (100) 94 08/08/18 20:00 71 Room Air 21 08/08/18 17:25 88 121/91 08/08/18 16:00 98.0 88 21 121/91 (101) 97 08/08/18 12:00 98.6 84 18 120/84 (96) 59 Intake and Output 08/08/18 08/09/18 19:00 07:00 Intake Total 1220 ml 100 ml Output Total 1200 ml Balance 1220 ml -1100 ml Intake Oral 1020 ml IV Total 200 ml 100 ml Output Urine Total 1200 ml Laboratory Tests Test 08/09/18 06:30 White Blood Count 11.6 K/UL (4.8-10.8) H Red Blood Count 3.64 M/UL (4.70-6.10) L Hemoglobin 12.1 G/DL (14.2-18.0) L Hematocrit 35.5 % (42.0-52.0) L Mean Corpuscular Volume 97 FL (80-99) Mean Corpuscular Hemoglobin 33.3 PG (27.0-31.0) H Mean Corpuscular Hemoglobin Concent 34.2 G/DL (32.0-36.0) Red Cell Distribution Width 13.3 % (11.6-14.8) Platelet Count 396 K/UL (150-450) Mean Platelet Volume 6.9 FL (6.5-10.1) Neutrophils (%) (Auto) 74.6 % (45.0-75.0) Lymphocytes (%) (Auto) 9.7 % (20.0-45.0) L Monocytes (%) (Auto) 9.3 % (1.0-10.0) Eosinophils (%) (Auto) 5.5 % (0.0-3.0) H Basophils (%) (Auto) 0.9 % (0.0-2.0) Sodium Level 138 MMOL/L (136-145) Potassium Level 4.0 MMOL/L (3.5-5.1) Chloride Level 104 MMOL/L (98-107) Carbon Dioxide Level 25 MMOL/L (21-32) Anion Gap 9 mmol/L (5-15) Blood Urea Nitrogen 11 mg/dL (7-18) Creatinine 1.4 MG/DL (0.55-1.30) H Estimat Glomerular Filtration Rate 51.2 mL/min (>60) Glucose Level 102 MG/DL (74-106) Calcium Level 9.0 MG/DL (8.5-10.1) Height (Feet): 5 Height (Inches): 8.00 Weight (Pounds): 159 General Appearance: WD/WN, no apparent distress, alert Cardiovascular: normal rate Respiratory/Chest: normal breath sounds, no respiratory distress Abdominal Exam: normal bowel sounds, non tender, soft Extremities: normal range of motion, non-tender Objective Patient is more alert and oriented Able to swallow pills without any signs or symptoms of aspiration Sonja Neely NP Aug 09, 2018 12:02
--- NOTE | 2018-08-09 14:37 | General Progress Note ---
Progress Note Progress Note drain removed kenneth removed steristrips placed looks great d/c f/u in office [place] Aug 09, 2018 14:37
--- NOTE | 2018-08-09 15:50 | Diagnostic Imaging Report ---
Indications: Dysphagia Technique: Patient ingested multiple substances under the supervision of speech pathology. Video fluoroscopic recording performed. Total fluoroscopy time when 81 seconds. Total dose area product 0.81508 mGycm2 Total number of images-10 Comparison: none Findings: Usually prominent initiation of deglutition with both substances, occasional delay in initiation of deglutition. No definite early or delayed pooling with thin liquid barium. Minimal delayed pooling of nectar thick and honey thick liquid barium as well as masticated solid is demonstrated.. No definite aspiration or penetration demonstrated. Impression: Negative for aspiration or penetration Please refer to speech pathology report for more detailed analysis
[2018-08-09 16:00] VITALS: BP 140/75
--- NOTE | 2018-08-09 16:00 | Infectious Diseases Prog Note ---
Assessment/Plan Assessment/Plan ASSESSMENT AND PLAN: 1. sepsis, klebsiella cholecystitis, s/p cholecystectomy, enterobacter pna, elevated lft's/lipase, pancreatitis, leukocytosis, fevers, sirs, jaqueline - levofloxacin and flagyl x 1 day - monitor labs and chest x-ray - CT A/P noted - chest x-ray improved 3. Smoking use. 4. Anemia. 5. Thrombocytosis. 6. No history of diabetes, hypertension, but he is on Norvasc. 7. No known allergies. 8. Social history positive for smoking and alcohol use. No history of intravenous drug abuse. 9. MAR was noted. 10. Case discussed with RN. 11. Continue treatment per primary consultants. 12. Case discussed at length the ICU nurse, the patient currently in ICU. 13. Continue skin care protocol and pulmonary treatments for now. Subjective Constitutional: Denies: fever HEENT: Denies: dysphagia, congestion Respiratory: Denies: shortness of breath Cardiovascular: Denies: chest pain Gastrointestinal/Abdominal: Denies: nausea, vomiting, diarrhea Genitourinary: Reports: other - no melchor Neurologic: Denies: headache Skin: Denies: rash Hematologic: Denies: bleeding Musculoskeletal: Denies: pain Allergies: Coded Allergies: No Known Allergies (Unverified , 06/01/16) Objective Vital Signs Last 24 Hour Vital Signs Date Time Temp Pulse Resp B/P (MAP) Pulse Ox O2 Delivery O2 Flow Rate FiO2 08/09/18 12:00 98.9 81 20 124/83 (97) 95 08/09/18 10:28 92 140/94 08/09/18 09:00 Room Air 08/09/18 08:58 92 Room Air 21 08/09/18 08:00 98.5 102 20 140/94 (109) 95 08/09/18 00:00 98.0 75 18 118/72 (87) 08/08/18 21:00 Room Air 08/08/18 20:00 97.7 75 18 129/86 (100) 94 08/08/18 20:00 71 Room Air 21 08/08/18 17:25 88 121/91 08/08/18 16:00 98.0 88 21 121/91 (101) 97 Height (Feet): 5 Height (Inches): 8.00 Weight (Pounds): 159 General Appearance: no acute distress HEENT: normocephalic, atraumatic, anicteric, mucous membranes moist Respiratory/Chest: no accessory muscle use, crackles/rales, rhonchi - bilaterally Cardiovascular: normal rate, regular rhythm, no gallop/murmur, no JVD Abdomen: normal bowel sounds, soft, non tender, no organomegaly, non distended Genitourinary: other - no melchor Extremities: no cyanosis Skin: no rash 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 Apparent elevation of the right hemidiaphragm is again noted. The left lung demonstrates a very faint opacity in the left midlung which is not evident previously. However, interstitial congestion in the left lung has improved. Impression: Persistent right-sided pleural effusion and fairly extensive parenchymal infiltrate or edema Improved left lung interstitial congestion. Focal patchy left lung abnormality was not evident previously, however, and could represent a small area of infiltrate Chest x-ray - 07/22/18 - COMPARISON: Chest x-ray 07/19/18 837 FINDINGS: Lungs: Increasing opacities of the right lung. Pleural space: Slightly increasing right pleural effusion. No pneumothorax. Heart: Unremarkable. No cardiomegaly. Mediastinum: Unremarkable. Bones/joints: Unremarkable. Tubes, lines and devices: Left PICC line tip appears further advanced into the right atrium. NG tube traverses diaphragm, tip is not seen. Upper abdomen: Midepigastric gastric surgical clips. IMPRESSION: 1. Left PICC line tip appears further advanced into the right atrium. 2. Increasing opacities of the right lung. 3. Slightly increasing right pleural effusion. 07/24/18 - chest x-ray - A single view chest radiograph was obtained. Findings: Hazy opacity at the right lung base may be a pleural effusion. Heart is enlarged. There is suggestion of mild interstitial edema. PICC line is present on the left. IMPRESSION: Suspected mild interstitial edema and a small right pleural effusion. Chest x-ray - 07/27/18- Comparison: 07/26/2018 A single view chest radiograph was obtained. Findings: Patchy infiltrate noted in the right lung. There is less right pleural effusion present. Heart is mildly enlarged. PICC line is noted. IMPRESSION: Diminished right pleural effusion which may have 5 decreased or shifted. Patchy right basal and perihilar infiltrate noted Chest x-ray - 07/30/18 Comparison: 07/30/2018 Findings: Interim resolution of previously demonstrated right pleural effusion, postthoracentesis. Hazy infiltrates are seen throughout the right mid and lower lung. The left lung and pleural space remain clear. Left arm PICC remains. Impression: Resolved right pleural effusion, post thoracentesis. No radiographically evident complication Persistent right mid and lower lung infiltrates Chest x-ray - 08/01/18 - Findings: Interim improvement of previously demonstrated right mid and lower lung parenchymal opacity, with some residual. There is a small amount of pleural fluid on the right, slightly increased from the prior exam. Left lung and pleural space are largely clear, without definite findings corresponding to the findings described on recent CT scan. The heart size is normal. Left arm PICC remains. Postsurgical changes of the upper abdomen are again noted. Right hemidiaphragm remains slightly elevated Impression: Improving but persistent right lung infiltrate, over 2 days. Other stable findings as described CT abdomen and pelvis: IMPRESSION: Status post cholecystectomy. Complex 13 x 5 x 13.7 cm mixed attenuation collection in and extending from the gallbladder fossa. Given the presence of high attenuation elements, this most likely represents a postoperative hematoma. Infected collections not completely excludable, particularly in view of the presence of some rim enhancement Endobiliary stent in good position. No biliary ductal dilatation Atelectasis of a significant portion of the right lower lobe. However, volume loss is significantly improved from 07/10/2018 Fairly extensive infiltrates in the right lower lobe, with less extensive infiltrates in the right middle lobe, right upper lobe, and left upper lobe. There may be a component of chronic fibrosis within the right lower lobe opacities as well PICC in good position Trace right pleural effusion Gastrostomy in good position 08/05/18 - chest x-ray - COMPARISON: Chest x-ray dated 08/01/18, 07/26/18, 07/15/18 FINDINGS: Lungs: Persistent patchy infiltrate at the periphery of the right mid and upper lung, not significantly changed compared to the prior exam. Mildly increased interstitial markings, unchanged. Pleural space: Unremarkable. The costophrenic angles are sharp. No visible pneumothorax. Heart: Unremarkable. No cardiomegaly. Mediastinum: Unremarkable. Bones/joints: Unremarkable. Tubes, lines and devices: EKG leads overlie the thorax. Left arm PICC with catheter tip in the region of the right atrium. Upper abdomen: Radiodense clips overlie the midepigastric region. IMPRESSION: No significant change in the patchy infiltrate at the periphery of the right mid and upper lung compared to the prior exam. Chest x-ray - 08/09/18 - Findings: Hazy opacity in the right mid and lower lung appears improved although persists in the perihilar region. Interstitial opacities in the right upper lobe persist. Small right pleural effusion persists Left arm PICC remains. Left lung and pleural space remains clear. Heart size is normal.. Epigastric surgical clips again noted Impression: Improved right mid and lower lung infiltrate, over 2 days, with some persistent disease. Stable right upper lobe interstitial opacities and small right pleural effusion Microbiology Date/Time Source Procedure Growth Status 07/30/18 21:15 Blood Blood Culture - Final NO GROWTH AFTER 5 DAYS Complete 07/12/18 20:50 Peritoneal Fluid Gram Stain - Final Complete 07/12/18 20:50 Peritoneal Fluid Aerobic Culture - Final NO GROWTH Complete 07/12/18 20:50 Peritoneal Fluid Anaerobic Culture - Final NO GROWTH AFTER 5 DAYS Complete 07/21/18 14:45 Sputum Induced Gram Stain - Final Complete 07/21/18 14:45 Sputum Culture - Final Nery Albicans Usual Respiratory Carolyn Complete 07/30/18 22:00 External Cath Urine Culture - Final NO GROWTH AFTER 48 HOURS Complete Laboratory Tests Test 08/09/18 06:30 White Blood Count 11.6 K/UL (4.8-10.8) H Red Blood Count 3.64 M/UL (4.70-6.10) L Hemoglobin 12.1 G/DL (14.2-18.0) L Hematocrit 35.5 % (42.0-52.0) L Mean Corpuscular Volume 97 FL (80-99) Mean Corpuscular Hemoglobin 33.3 PG (27.0-31.0) H Mean Corpuscular Hemoglobin Concent 34.2 G/DL (32.0-36.0) Red Cell Distribution Width 13.3 % (11.6-14.8) Platelet Count 396 K/UL (150-450) Mean Platelet Volume 6.9 FL (6.5-10.1) Neutrophils (%) (Auto) 74.6 % (45.0-75.0) Lymphocytes (%) (Auto) 9.7 % (20.0-45.0) L Monocytes (%) (Auto) 9.3 % (1.0-10.0) Eosinophils (%) (Auto) 5.5 % (0.0-3.0) H Basophils (%) (Auto) 0.9 % (0.0-2.0) Sodium Level 138 MMOL/L (136-145) Potassium Level 4.0 MMOL/L (3.5-5.1) Chloride Level 104 MMOL/L (98-107) Carbon Dioxide Level 25 MMOL/L (21-32) Anion Gap 9 mmol/L (5-15) Blood Urea Nitrogen 11 mg/dL (7-18) Creatinine 1.4 MG/DL (0.55-1.30) H Estimat Glomerular Filtration Rate 51.2 mL/min (>60) Glucose Level 102 MG/DL (74-106) Calcium Level 9.0 MG/DL (8.5-10.1) Current Medications Medications (Trade) Dose Ordered Sig/[place] Route PRN Reason Start Time Stop Time Status Last Admin Dose Admin Acetaminophen (Tylenol) 650 mg Q4H PRN RECTAL Prn for Temp >100.5 08/07/18 10:58 08/14/18 10:57 Acetaminophen (Tylenol) 650 mg Q6H PRN ORAL Mild Pain/Temp > 100.5 08/07/18 12:00 09/05/18 11:59 08/08/18 05:02 Al Hydroxide/Mg Hydroxide (Mylanta) 15 ml Q6H PRN ORAL DYSPEPSIA 08/07/18 12:15 08/27/18 12:06 Chlorhexidine Gluconate (Estrella-Hex 2%) 1 applic DAILY@2000 TOPIC 08/07/18 20:00 08/15/18 19:59 08/08/18 20:58 Dextrose (Dextrose 50%) 25 ml Q30M PRN IV Hypoglycemia 08/07/18 11:15 08/17/18 21:04 Dextrose (Dextrose 50%) 50 ml Q30M PRN IV hypoglycemia 08/07/18 11:15 08/17/18 21:04 Diphenhydramine HCl (Benadryl) 12.5 mg Q6H PRN IVP Itching/Pruritis 08/07/18 10:58 08/27/18 10:57 Haloperidol Lactate (Haldol) 5 mg Q6H PRN IM Agitation 08/07/18 10:59 09/02/18 10:58 Heparin Sodium (Porcine) (Heparin 5000 units/ml) 5,000 units EVERY 12 HOURS SUBQ 08/07/18 21:00 09/02/18 08:59 08/09/18 10:31 Insulin Aspart (NovoLOG) AC+HS SUBQ 08/07/18 11:30 08/17/18 12:59 Ipratropium [place] (Atrovent) 500 mcg Q4H PRN HHN Shortness of Breath 08/07/18 21:15 08/12/18 21:14 Levofloxacin 100 ml @ 100 mls/hr Q24H IVPB 08/07/18 20:00 08/10/18 19:59 08/08/18 20:59 Magnesium Hydroxide (Mom) 30 ml BIDPRN PRN ORAL Constipation 08/07/18 12:00 08/27/18 21:04 Metronidazole 100 ml @ 100 mls/hr Q8HR IVPB 08/07/18 14:00 08/10/18 21:59 08/09/18 13:56 Ondansetron HCl (Zofran) 4 mg Q6H PRN IVP Nausea & Vomiting 08/07/18 10:59 08/27/18 10:58 Pantoprazole (Protonix) 40 mg DAILY IVP 08/09/18 09:00 08/28/18 08:59 08/09/18 10:27 Propranolol HCl (Inderal) 80 mg BID ORAL 08/07/18 18:00 08/27/18 11:59 08/09/18 10:28 Tyler Madsen MD Aug 09, 2018 16:00
--- NOTE | 2018-08-09 19:30 | NUR ---
NURSE NOTES: Received patient in bed sleeping arousable to verbal stimuli. Able to make needs known. Patient doesn't want to be bothered. Patient states "I just want to sleep leave me alone". 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 PICC line intact and patent. Flushed as ordered. Bed in lowest position and locked. Call light within reach. Will continue to monitor.
--- NOTE | 2018-08-09 19:58 | NUR ---
HAND-OFF: Report given to RN Ornadeem.
[2018-08-09] MEDS: Dyna-Hex 2% Top Sol 2oz TOPIC SCH (20:48)
--- NOTE | 2018-08-09 21:44 | Pulmonology Progress Note ---
Assessment/Plan Problems: (1) Cholecystitis, acute (2) Alcoholic pancreatitis (3) Pancreatitis, acute (4) Alcohol abuse (5) Abnormal LFTs (6) Gangrenous cholecystitis (7) Respiratory disorder with ventilator dependence Assessment & Plan: Extubated and TTF (8) Blood loss anemia (9) Pneumonia (10) Hepatitis C (11) Fatty liver Assessment/Plan CXR better Optimize pulmonary hygiene/mobilize as tolerated PRN O2 PRN ATROVENT HHN's Abx per ID PO diet with aspiration precautions, per GI to remove GT @ F/U [place] volumes and renal function DVT Px: Hep SQ FC Stable from a pulmonary standpoint. I will sign off and follow up peripherally, please call with questions. My recommendation, which I discussed with the pt, is for him to have outpatient pulmonary F/U, including a CT chest in 4-6 weeks and further work up for underlying lung disease once all acute issues resolved. Subjective Allergies: Coded Allergies: No Known Allergies (Unverified , 06/01/16) Subjective AFVSS on RA Carlos PO Denies cough/congestion/SOB/wheezing, no FC CXR better Objective Last 24 Hour Vital Signs Date Time Temp Pulse Resp B/P (MAP) Pulse Ox O2 Delivery O2 Flow Rate FiO2 08/09/18 17:42 75 140/75 08/09/18 16:00 99.4 75 20 140/75 (96) 94 08/09/18 12:00 98.9 81 20 124/83 (97) 95 08/09/18 10:28 92 140/94 08/09/18 09:00 Room Air 08/09/18 08:58 92 Room Air 21 08/09/18 08:00 98.5 102 20 140/94 (109) 95 08/09/18 00:00 98.0 75 18 118/72 (87) Intake and Output 08/08/18 08/09/18 19:00 07:00 Intake Total 1220 ml 100 ml Output Total 1200 ml Balance 1220 ml -1100 ml Intake Oral 1020 ml IV Total 200 ml 100 ml Output Urine Total 1200 ml General Appearance: WD/WN, no acute distress HEENT: normocephalic, atraumatic, anicteric, mucous membranes moist Respiratory/Chest: chest wall non-tender, lungs clear, normal breath sounds, no respiratory distress, no accessory muscle use Cardiovascular: normal peripheral pulses, normal rate, regular rhythm Abdomen: normal bowel sounds, soft, non tender, no organomegaly, non distended , no mass, other - GT Extremities: no cyanosis, no clubbing, no edema Laboratory Tests 08/09/18 06:30: White Blood Count 11.6H, Red Blood Count 3.64L, Hemoglobin 12.1L, Hematocrit 35.5L, Mean Corpuscular Volume 97, Mean Corpuscular Hemoglobin 33.3H, Mean Corpuscular Hemoglobin Concent 34.2, Red Cell Distribution Width 13.3, Platelet Count 396, Mean Platelet Volume 6.9, Neutrophils (%) (Auto) 74.6, Lymphocytes (% ) (Auto) 9.7L, Monocytes (%) (Auto) 9.3, Eosinophils (%) (Auto) 5.5H, Basophils (%) (Auto) 0.9, Sodium Level 138, Potassium Level 4.0, Chloride Level 104, Carbon Dioxide Level 25, Anion Gap 9, Blood Urea Nitrogen 11, Creatinine 1.4H, Estimat Glomerular Filtration Rate 51.2, Glucose Level 102, Calcium Level 9.0 Current Medications Medications (Trade) Dose Ordered Sig/[place] Route PRN Reason Start Time Stop Time Status Last Admin Dose Admin Acetaminophen (Tylenol) 650 mg Q4H PRN RECTAL Prn for Temp >100.5 08/07/18 10:58 08/14/18 10:57 Acetaminophen (Tylenol) 650 mg Q6H PRN ORAL Mild Pain/Temp > 100.5 08/07/18 12:00 09/05/18 11:59 08/08/18 05:02 Al Hydroxide/Mg Hydroxide (Mylanta) 15 ml Q6H PRN ORAL DYSPEPSIA 08/07/18 12:15 08/27/18 12:06 Chlorhexidine Gluconate (Estrella-Hex 2%) 1 applic DAILY@1999 TOPIC 08/07/18 20:00 08/15/18 19:59 08/09/18 20:48 Dextrose (Dextrose 50%) 25 ml Q30M PRN IV Hypoglycemia 08/07/18 11:15 08/17/18 21:04 Dextrose (Dextrose 50%) 50 ml Q30M PRN IV hypoglycemia 08/07/18 11:15 08/17/18 21:04 Diphenhydramine HCl (Benadryl) 12.5 mg Q6H PRN IVP Itching/Pruritis 08/07/18 10:58 08/27/18 10:57 Haloperidol Lactate (Haldol) 5 mg Q6H PRN IM Agitation 08/07/18 10:59 09/02/18 10:58 Heparin Sodium (Porcine) (Heparin 5000 units/ml) 5,000 units EVERY 12 HOURS SUBQ 08/07/18 21:00 09/02/18 08:59 08/09/18 10:31 Insulin Aspart (NovoLOG) AC+HS SUBQ 08/07/18 11:30 08/17/18 12:59 Ipratropium [place] (Atrovent) 500 mcg Q4H PRN HHN Shortness of Breath 08/07/18 21:15 08/12/18 21:14 Levofloxacin 100 ml @ 100 mls/hr Q24H IVPB 08/07/18 20:00 08/10/18 19:59 08/09/18 20:47 Magnesium Hydroxide (Mom) 30 ml BIDPRN PRN ORAL Constipation 08/07/18 12:00 08/27/18 21:04 Metronidazole 100 ml @ 100 mls/hr Q8HR IVPB 08/07/18 14:00 08/10/18 21:59 08/09/18 13:56 Ondansetron HCl (Zofran) 4 mg Q6H PRN IVP Nausea & Vomiting 08/07/18 10:59 08/27/18 10:58 Pantoprazole (Protonix) 40 mg DAILY IVP 08/09/18 09:00 08/28/18 08:59 08/09/18 10:27 Propranolol HCl (Inderal) 80 mg BID ORAL 08/07/18 18:00 08/27/18 11:59 08/09/18 17:42 Trenton Ladd MD Aug 09, 2018 21:44
--- NOTE | 2018-08-09 23:47 | Cardiology Progress Note ---
Assessment/Plan Assessment/Plan 1. Paroxysmal SVT, converted to SR, continue propranolol. 2. Septic shock, resolved. 3. PAF, not a suitable candidate for anticoag therapy due to chronic liver disease. 4. Moderate pulmonary HTN. 5. Acute purulent gangrenous cholecystitis due to Klebsiella. 6. Anemia 7. Acute Hypoxic respiratory failure, s/p right thoracentesis. 8. Acute Metabolic Encephalopathy Subjective Subjective No cardiac events noted, Objective Last 24 Hour Vital Signs Date Time Temp Pulse Resp B/P (MAP) Pulse Ox O2 Delivery O2 Flow Rate FiO2 08/09/18 21:00 Room Air 08/09/18 17:42 75 140/75 08/09/18 16:00 99.4 75 20 140/75 (96) 94 08/09/18 12:00 98.9 81 20 124/83 (97) 95 08/09/18 10:28 92 140/94 08/09/18 09:00 Room Air 08/09/18 08:58 92 Room Air 21 08/09/18 08:00 98.5 102 20 140/94 (109) 95 08/09/18 00:00 98.0 75 18 118/72 (87) Intake and Output 08/08/18 08/09/18 19:00 07:00 Intake Total 1220 ml 100 ml Output Total 1200 ml Balance 1220 ml -1100 ml Intake Oral 1020 ml IV Total 200 ml 100 ml Output Urine Total 1200 ml 2D Echo: LVEF 65%, Mild LVH, RVSP 50 mmHg, Mild MR/CO, Normal LVD Laboratory Tests Test 08/09/18 06:30 White Blood Count 11.6 K/UL (4.8-10.8) H Red Blood Count 3.64 M/UL (4.70-6.10) L Hemoglobin 12.1 G/DL (14.2-18.0) L Hematocrit 35.5 % (42.0-52.0) L Mean Corpuscular Volume 97 FL (80-99) Mean Corpuscular Hemoglobin 33.3 PG (27.0-31.0) H Mean Corpuscular Hemoglobin Concent 34.2 G/DL (32.0-36.0) Red Cell Distribution Width 13.3 % (11.6-14.8) Platelet Count 396 K/UL (150-450) Mean Platelet Volume 6.9 FL (6.5-10.1) Neutrophils (%) (Auto) 74.6 % (45.0-75.0) Lymphocytes (%) (Auto) 9.7 % (20.0-45.0) L Monocytes (%) (Auto) 9.3 % (1.0-10.0) Eosinophils (%) (Auto) 5.5 % (0.0-3.0) H Basophils (%) (Auto) 0.9 % (0.0-2.0) Sodium Level 138 MMOL/L (136-145) Potassium Level 4.0 MMOL/L (3.5-5.1) Chloride Level 104 MMOL/L (98-107) Carbon Dioxide Level 25 MMOL/L (21-32) Anion Gap 9 mmol/L (5-15) Blood Urea Nitrogen 11 mg/dL (7-18) Creatinine 1.4 MG/DL (0.55-1.30) H Estimat Glomerular Filtration Rate 51.2 mL/min (>60) Glucose Level 102 MG/DL (74-106) Calcium Level 9.0 MG/DL (8.5-10.1) Objective HEENT: normocephalic, atraumatic, anicteric, PERRL, dry mucous membrane Neck: no JVD, no carotid bruit. Respiratory/Chest: chest wall non-tender, lungs clear, normal breath sounds, no respiratory distress, no accessory muscle use Cardiovascular/Chest: Normal S1S2, no murmurs, gallops or rubs, rate,regular rhythm. Abdomen: normal bowel sounds, soft, no organomegaly, no mass, other - mild epigastric ttp Extremities: normal range of motion, non-tender, normal inspection, no calf tenderness, normal capillary refill, non-pitting Skin Exam: normal pigmentation, warm/dry Neurologic: no motor/sensory deficits, alert, oriented x 3, responsive, normal mood/affect Luis Patel MD Aug 09, 2018 23:47
--- NOTE | 2018-08-10 01:44 | NUR ---
HAND-OFF: Report given to JAVIER Perez.
[2018-08-10] MEDS: NovoLOG Insulin Flexpen SUBQ SCH (06:30)
--- NOTE | 2018-08-10 07:16 | NUR ---
HAND-OFF: Report given to JAVIER Braden.
--- NOTE | 2018-08-10 07:26 | NUR ---
NURSE NOTES: Patient received in stable condition, eating breakfast in bed. Alert and oriented, responds appropriately. Breathing unlabored on room air. Denies pain at this time. IV fluids running on PICC line left upper arm. Bed locked, call light placed within reach. Will continue to monitor.
[2018-08-10 08:00] VITALS: BP 130/70
[2018-08-10] MEDS ORDERED: INDERAL20 MG ORAL (08:31)
--- NOTE | 2018-08-10 08:34 | Discharge Summary ---
Discharge Summary Hospital Course Date of Admission Jul 02, 2018 at 19:08 Date of Discharge 08/10/18 Admitting Diagnosis alcoholic pancreatitis HPI Hossein Chow is a 62 year old male who was admitted on Jul 02, 2018 at 19:08 for Alcoholoc Pancreatitis Consultations GI,Surgery,ID,Pulm Hospital Course This is a 62-year-old male with multiple medical comorbidities, who was admitted to [facility] for alcoholic pancreatitis at which time during his hospital course, he began to worsen with elevated LFTs and alcohol withdrawal. During admission, he was noted to have worsening abdominal pain and CT scan with concerns for acute cholecystitis with a marked gallbladder distention, wall thickening, infiltration, and pericholecystic fat in a patient with known cholelithiasis, which was identified on ultrasound during admission, which did not identify any Peralta sign or significant gallbladder disease. MRCP was performed, which identified an area of concern in the common bile duct in which ERCP was performed today by Gastroenterology identifying duodenal diverticulum, common bile duct, and pus in the biliary tract. The patient's clinical course continued to deteriorate and therefore patient underwent cholecystectomy. Hospital course complicated by acute hypoxic respiratory failure, Enterobacter pneumonia, ARYA. Patient was treated with broad spectrum antibiotics which complete today. Patient had severe dysphagia and GI placed PEG - dysphagia improved and he is now back on oral diet, PEG will need to be removed in one month. Also biliary stent will need to be removed in 1 month, GI team will follow up with his for this. Patient was seen by Cardiology for atrial fibrillation, treated with propranolol which he will continue as outpatient. He will be discharged home in good condition with his . #Sepsis #Acute purulent gangrenous cholecystitis. #klebsiella cholecystitis #acute Hypoxic respiratory failure #Acute Metabolic Encephalopathy - due to alcohol withdrawal and sepsis - continue antibiotics per another 3 days - bcx x 2 ngtd - s/p ercp 07/12 - gen surg following s/p lap jocelyn converted to open jocelyn 07/12 - extubated on 07/16/18 - off o2 ncl - pulm following appreciated - pain control - appreciate surg recs - tpn -NG tube removed -s/p PEG -continue PO diet #Acute Blood Loss Anemia - due to recent surgery - no overt bleeding noted currently - hgb 6.8 07/15, transfused 2U, 9.7 (07/16) - stable #Pleural Effusions - b/l - per mrcp - stable - pulm consult appreciated #Alcohol Pancreatitis #Intractable abdominal pain #intractable nausea/vomiting #Transaminitis #Alcohol Hepatitis #Alcohol withdrawals #Fatty Liver Disease #Hepatitis C - LFTs 446/532 - Lipase 687 - due to alcohol abuse - INR 1.0 - discriminant function, 4.5 , no need for steroids - US abd completed and reviewed, showing fatty liver disease. GS present, no obstruction noted - ppi - PRN antiemetics, zofran prn - Per GI, will need ERCP in 6-8 weeks for stent removal #Failure to thrive - due to alcohol withdrawals and the above - alcoholic pancreatitis - fluids #Alcohol Abuse - educated on cessation for 15 mins - patient states he understands and will try to quit - RN notified to monitor carefully with withdrawals - prn ativan - ciwa #Uncontrolled HTN and tachycardia overnight -all oral BP meds held for now -continue metoprolol IV q6h -transferred to ICU, on amiodarone drip #Tobacco abuse - smokes 1ppd - educated on smoking cessation for over 15 mins, states he understands the risks of smoking and will try to quit #Dysphagia -CUSTOMER RELATIONS COORDINATOR to re-evaluate today -Continue tube feeds via PEG #Hypernatremia - resoved -continue free water flushes via G-tube #Hypokalemia improved continue to monitor BMP Anticipate discharge home tomorrow Discharge Discharge Disposition Patient was discharged to home with Discharge Diagnoses: (1) Alcoholic pancreatitis (2) Paroxysmal atrial fibrillation with rapid ventricular response Tomás Cruz MD Aug 10, 2018 08:34
[2018-08-10 08:53] VITALS: BP 140/75
[2018-08-10] MEDS: Pantoprazole Inj IVP SCH (08:53)
[2018-08-10] MEDS: Propranolol 40mg tab ORAL SCH (08:53)
[2018-08-10] MEDS: Heparin 5000 units/ml inj SUBQ SCH (09:02)
[2018-08-10 10:39] LABS: ANION GAP 7 mmol/L (5-15); BLOOD UREA NITROGEN 13 mg/dL (7-18); CALCIUM 9.3 MG/DL (8.5-10.1); CARBON DIOXIDE 26 MMOL/L (21-32); CHLORIDE 104 MMOL/L (98-107); CREATININE 1.4 MG/DL (0.55-1.30); POTASSIUM 4.2 MMOL/L (3.5-5.1); SODIUM 137 MMOL/L (136-145)
[2018-08-10 10:47] LABS: BASOPHILS % (AUTO) 0.7 % (0.0-2.0); EOSINOPHILS % (AUTO) 4.6 % (0.0-3.0); HEMOGLOBIN 11.9 G/DL (14.2-18.0); LYMPHOCYTES % (AUTO) 12.8 % (20.0-45.0); MEAN CORPUSCULAR VOLUME 96 FL (80-99); MONOCYTES % (AUTO) 10.3 % (1.0-10.0); NEUTROPHILS % (AUTO) 71.5 % (45.0-75.0); PLATELET COUNT 452 K/UL (150-450); RED BLOOD COUNT 3.55 M/UL (4.70-6.10); RED CELL DISTRIBUTION WIDTH 13.2 % (11.6-14.8); WHITE BLOOD COUNT 10.5 K/UL (4.8-10.8)
--- NOTE | 2018-08-10 11:23 | GI Progress Note ---
Assessment/Plan Problems: (1) Abnormal LFTs ICD Codes: R79.89 - Other specified abnormal findings of blood chemistry SNOMED: 730663875 (2) Cholecystitis, acute ICD Codes: K81.0 - Acute cholecystitis SNOMED: 73893465 (3) Hepatitis C ICD Codes: B19.20 - Unspecified viral hepatitis C without hepatic coma SNOMED: 27525333 (4) Fatty liver ICD Codes: K76.0 - Fatty (change of) liver, not elsewhere classified SNOMED: 442319776 (5) Alcoholic pancreatitis ICD Codes: K85.20 - Alcohol induced acute pancreatitis without necrosis or infection SNOMED: 474271837 (6) Pancreatitis, acute ICD Codes: K85.90 - Acute pancreatitis without necrosis or infection, unspecified SNOMED: 050872990 Status: stable Status Narrative Discussed with Dr. Yip Assessment/Plan SUMMARY OF FINDINGS: 1. 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 2. Status post ERCP with sphincterotomy, balloon assistance sludge and some pus extraction from the common bile duct and then stent placement. s/p open jocelyn, now in ICU with pancreatitis hepatitis C positive Pancreatitis s/p PEG Tolerating G-tube feedings RECOMMENDATIONS: The patient will need repeat ERCP in 6 to 8 weeks for stent removal. approximately September 2018. -voicemail left with -reminder rx given to patient okay for GT to be removed, min 1 month after PEG >> recommend for GT removal when patient has repeat ERCP. advanced diet DC Reglan Trend lipase fu labs outpatient Hep C tx dc planning I explained to the patient that he must have his stent removed at the above date. He acknowledged. okay for DC per GI standpoint The patient was seen and examined at bedside and all new and available data was reviewed in the patients chart. I agree with the above findings, impression and plan. (Patient seen earlier today. Signature stamp does not reflect patient encounter time.). - Toñito Yip MD Subjective Subjective Denies any abdominal pain No nausea or vomiting Objective Last 24 Hour Vital Signs Date Time Temp Pulse Resp B/P (MAP) Pulse Ox O2 Delivery O2 Flow Rate FiO2 08/10/18 09:00 Room Air 08/10/18 08:53 86 140/75 08/10/18 08:00 97.6 76 18 130/70 (90) 98 08/10/18 02:05 86 Room Air 21 08/09/18 21:00 Room Air 08/09/18 17:42 75 140/75 08/09/18 16:00 99.4 75 20 140/75 (96) 94 08/09/18 12:00 98.9 81 20 124/83 (97) 95 Intake and Output 08/09/18 08/10/18 19:00 07:00 Intake Total 720 ml Output Total 800 ml 500 ml Balance -80 ml -500 ml Intake Oral 720 ml Output Urine Total 800 ml 500 ml # Voids 1 Laboratory Tests Test 08/10/18 10:20 White Blood Count 10.5 K/UL (4.8-10.8) Red Blood Count 3.55 M/UL (4.70-6.10) L Hemoglobin 11.9 G/DL (14.2-18.0) L Hematocrit 34.0 % (42.0-52.0) L Mean Corpuscular Volume 96 FL (80-99) Mean Corpuscular Hemoglobin 33.5 PG (27.0-31.0) H Mean Corpuscular Hemoglobin Concent 35.0 G/DL (32.0-36.0) Red Cell Distribution Width 13.2 % (11.6-14.8) Platelet Count 452 K/UL (150-450) H Mean Platelet Volume 6.9 FL (6.5-10.1) Neutrophils (%) (Auto) 71.5 % (45.0-75.0) Lymphocytes (%) (Auto) 12.8 % (20.0-45.0) L Monocytes (%) (Auto) 10.3 % (1.0-10.0) H Eosinophils (%) (Auto) 4.6 % (0.0-3.0) H Basophils (%) (Auto) 0.7 % (0.0-2.0) Sodium Level 137 MMOL/L (136-145) Potassium Level 4.2 MMOL/L (3.5-5.1) Chloride Level 104 MMOL/L (98-107) Carbon Dioxide Level 26 MMOL/L (21-32) Anion Gap 7 mmol/L (5-15) Blood Urea Nitrogen 13 mg/dL (7-18) Creatinine 1.4 MG/DL (0.55-1.30) H Estimat Glomerular Filtration Rate 51.2 mL/min (>60) Glucose Level 98 MG/DL (74-106) Calcium Level 9.3 MG/DL (8.5-10.1) Height (Feet): 5 Height (Inches): 8.00 Weight (Pounds): 159 General Appearance: WD/WN, no apparent distress, alert Cardiovascular: normal rate Respiratory/Chest: normal breath sounds, no respiratory distress Abdominal Exam: normal bowel sounds, non tender, soft, GT site - Clean dry and intact Extremities: normal range of motion, non-tender Objective Patient is more alert and oriented Able to swallow pills without any signs or symptoms of aspiration Sonja Neely NP Aug 10, 2018 11:23
--- NOTE | 2018-08-10 11:55 | NUR ---
RD ASSESSMENT & RECOMMENDATIONS SEE CARE ACTIVITY FOR COMPLETE ASSESSMENT DAILY ESTIMATED NEEDS: Needs based on Pancreatitis, 72.6kg 25-30 kcals/kg 7401-2159 total kcals 1-1.5 g protein/kg 73-109 g total protein 25-30 mL/kg 5956-5881 total fluid mLs NUTRITION DIAGNOSIS: * Altered nutrition-related lab values R/T liver dysfunction, pancreatitis, clinical condition as evidenced by elev LFTs, elev T bili, now wnl, Hep C antibody >11, elev lipase and amylase, low Na (130-> wnl), low K 3.3-> wnl. * Swallowing difficulty R/T dysphagia, respiratory status as evidenced by now extubated, initially failed VSS, s/p PEG placement, now passed VSS w/ rec for mech soft ground texture diet. CURRENT DIET:LOW NA, LOW FAT/ mech soft ground PO DIET RECOMMENDATIONS: LOW NA, LOW FAT/ texture per ELEVATOR REPAIRER ADDITIONAL RECOMMENDATIONS: * Calibrated bedscale wt on 08/06-> 155.6lbs. * Monitor PO intake closely, need for GT feeding to supplement needs * Monitor PO tolerance- pancreatitis dx w/ elev lipase * Monitor lipase and LFTs . . .
--- NOTE | 2018-08-10 12:21 | NUR ---
NURSE NOTES: Patient discharged to home. Taxi services arranged. Patient accompanied downstairs in wheelchair with RN. PICC line safely removed. Discharge packet reviewed with the patient, importance and reason for follow up endorsed, with reminder note written. Patient verbalized understanding. RN attempted to reach spouse but there was no answer, no voicemail option available.
[2018-08-10] MEDS ORDERED: Tubing IV Secondary IV ONE (12:39)
[2018-08-10] MEDS ORDERED: NS 275ml ONE (12:39)
--- NOTE | 2018-08-10 22:25 | General Progress Note ---
Assessment/Plan Assessment/Plan # Anemia of chronic disease due to underlying chronic medical issues, multifactorial, pancreatitis --> Anemia workup has been reviewed --> No evidence of hemolysis is noted, peripheral smear has been reviewed. --> Hgb goal >7. Transfuse prn. --> Epogen or iron at this time is not particularly indicated --> Medications have been reviewed # Thrombocytopenia is likely related to underlying reactive process from pancreatitis, acute, as well as alcoholic intoxication and myelosuppression --> also patient has a history of hepatitis C from prior admission --> smear has been reviewed --> heparin sq is okay if needed for dvt ppx # Erythrocytosis is likely related to dehydration --> hgb goal >7, no evidence of bleeding currently --> given ivf already # Leukocytosis no e/o annie infection --> could be due to reactive process v cholecystitis --> wbc trend: 22-->18-->16-->14-->18-->19-->15-->14 --> peripheral smear has been reviewed --> ercp repeat in 6-8 weeks, stent was placed # Pancreatitis with alcohol abuse --> recommend etoh cessation --> amylase and lipase prn --> Status post ERCP with sphincterotomy + stent placement # Transaminitis --> likely related to etoh abuse --> in past seen by gi # Alcohol abuse -- recommend cessation # PEG inserted left lower quadrant The timing of this note does not necessarily reflect the time of the patient was seen. Greatly appreciate consultation! Subjective Constitutional: Denies: no symptoms, chills, diaphoresis, fever, malaise, weakness, other HEENT: Denies: no symptoms, eye pain, blurred vision, tearing, double vision, ear pain, ear discharge, nose pain, nose congestion, throat pain, throat swelling, mouth pain, mouth swelling, other Cardiovascular: Denies: no symptoms, chest pain, edema, irregular heart rate, lightheadedness, palpitations, syncope, other Respiratory: Denies: no symptoms, cough, orthopnea, shortness of breath, SOB with excertion, SOB at rest, sputum, stridor, wheezing, other Gastrointestinal/Abdominal: Denies: no symptoms, abdomen distended, abdominal pain, black stools, tarry stools, blood in stool, constipated, diarrhea, difficulty swallowing, nausea, poor appetite, poor fluid intake, rectal bleeding , vomiting, other Genitourinary: Denies: no symptoms, burning, discharge, frequency, flank pain, hematuria, incontinence, pain, urgency, other Neurologic/Psychiatric: Denies: no symptoms, anxiety, depressed, emotional problems, headache, numbness, paresthesia, pre-existing deficit, seizure, tingling, tremors, weakness, other Hematologic/Lymphatic: Denies: no symptoms, anemia, easy bleeding, easy bruising, other Allergies: Coded Allergies: No Known Allergies (Unverified , 06/01/16) Subjective 07/05: bp was high today and dc was cancelled until tomorow, on librium 07/06: wbc was high though other counts are better, no f/c 07/10: seen by bedside, heart rate increased, appears agitated, wbc 13.9 07/11: to get ercp tomorrow, surgery and gi following 07/12 ercp, sphincterotomy, stent placement surgery done today, currently having tremors and tachy. wbc 15.9, hgb 14, plt 429 07/13: Pt is intubated, seen by bedside,wbc 22, on abx, no acute distress 07/14: awake and comfortable, still intubated on vent, labs noted hb trending down, wbc 18, hgb 8. 07/16: seen by bedside, awake, comfortable, wbc 14, hgb 9, plt 613 07/17: awake, comfortable, status post ERCP with sphincterotomy wbc 21, hgb 10, plt 689. 07/18; seen by bedside, awake comfortable, on venturi mask, wbc 23, plt 754. 07/19: seen by bedside, awake and comfortable, no events, wbc 21 07/20: now out of the icu, doing better, wbc improved, remains on abx as per ID 07/22: Pt is awake, comfortable, wbc 16, lt 632, on abx 07/23 Pt is awake, comfortable, wbc 15, plt 574, on abx, CXR revelals, Increasing opacities of the right lung and Slightly increasing right pleural effusion 07/24: ng has been removed, seen by other consultants, hgb has improved, no bleeding 07/25: seen by bedside, awake, comfortable, on nasal canula, failed video swallow test and has some PO meds, wbc trending down. 07/26: awake, comfortable, G-tube placement consent signed 07/27: a janell overnignt, in ICU , awake, alert, responsive, PEG inserted today, wbc 19. 07/30: resting in bed awake,alert disoriented on and off,Thoracentesis done, wbc trending up again, Chest x-ray reveals, Resolved right pleural effusion, post thoracentesis. No radiographically evident complication Persistent right mid and lower lung infiltrates. 07/31: seen by bedside, awake, confused, no signs of acute distress. 08/01: Pt is resting in bed, no acute events reported, 08/02: no acute distress at this time, wbc 15, CXR reveals, Improving but persistent right lung infiltrate. 08/03: seen by bedside, awake, comfortable, no acute distress. wbc 15 08/05: on levo and flagyl as per id, no f/c, ct reviewed 08/06: awake, comfortable. not tolerating G-tube feedings 08/07: No acute events, awake and comfortable Denies acute distress. 08/08: seen by bedside, awake, comfortable, denies nausea or vomiting, or sob. 08/09: Pt is resting in bed, no acute events reported. 08/10: Awake and comfortable, no events. Objective Last 24 Hour Vital Signs Date Time Temp Pulse Resp B/P (MAP) Pulse Ox O2 Delivery O2 Flow Rate FiO2 08/10/18 09:00 Room Air 08/10/18 08:53 86 140/75 08/10/18 08:00 97.6 76 18 130/70 (90) 98 08/10/18 02:05 86 Room Air 21 Intake and Output 08/09/18 08/10/18 19:00 07:00 Intake Total 720 ml Output Total 800 ml 500 ml Balance -80 ml -500 ml Intake Oral 720 ml Output Urine Total 800 ml 500 ml # Voids 1 Laboratory Tests 08/10/18 10:20: White Blood Count 10.5, Red Blood Count 3.55L, Hemoglobin 11.9L, Hematocrit 34.0L, Mean Corpuscular Volume 96, Mean Corpuscular Hemoglobin 33.5H, Mean Corpuscular Hemoglobin Concent 35.0, Red Cell Distribution Width 13.2, Platelet Count 452H, Mean Platelet Volume 6.9, Neutrophils (%) (Auto) 71.5, Lymphocytes ( %) (Auto) 12.8L, Monocytes (%) (Auto) 10.3H, Eosinophils (%) (Auto) 4.6H, Basophils (%) (Auto) 0.7, Sodium Level 137, Potassium Level 4.2, Chloride Level 104, Carbon Dioxide Level 26, Anion Gap 7, Blood Urea Nitrogen 13, Creatinine 1.4H, Estimat Glomerular Filtration Rate 51.2, Glucose Level 98, Calcium Level 9.3 Height (Feet): 5 Height (Inches): 8.00 Weight (Pounds): 159 Objective Physical Exam General Appearance: A+O x3, NAD, ++ asterixis HEENT: normocephalic, atraumatic Neck: non-tender, normal alignment Respiratory/Chest: chest wall non-tender, lungs clear Cardiovascular/Chest: normal peripheral pulses, normal rate Abdomen: normal bowel sounds, non tender.++PEG Extremities: normal range of motion Guy Salazar MD Aug 10, 2018 22:25
--- NOTE | 2018-08-10 23:57 | Cardiology Progress Note ---
Assessment/Plan Assessment/Plan 1. Paroxysmal SVT, converted to SR, continue propranolol. 2. Septic shock, resolved. 3. PAF, not a suitable candidate for anticoag therapy due to chronic liver disease. 4. Moderate pulmonary HTN. 5. Acute purulent gangrenous cholecystitis due to Klebsiella. 6. Anemia 7. Acute Hypoxic respiratory failure, s/p right thoracentesis. 8. Acute Metabolic Encephalopathy Subjective Subjective No cardiac events noted, Objective Last 24 Hour Vital Signs Date Time Temp Pulse Resp B/P (MAP) Pulse Ox O2 Delivery O2 Flow Rate FiO2 08/10/18 09:00 Room Air 08/10/18 08:53 86 140/75 08/10/18 08:00 97.6 76 18 130/70 (90) 98 08/10/18 02:05 86 Room Air 21 Intake and Output 08/09/18 08/10/18 19:00 07:00 Intake Total 720 ml Output Total 800 ml 500 ml Balance -80 ml -500 ml Intake Oral 720 ml Output Urine Total 800 ml 500 ml # Voids 1 Laboratory Tests Test 08/10/18 10:20 White Blood Count 10.5 K/UL (4.8-10.8) Red Blood Count 3.55 M/UL (4.70-6.10) L Hemoglobin 11.9 G/DL (14.2-18.0) L Hematocrit 34.0 % (42.0-52.0) L Mean Corpuscular Volume 96 FL (80-99) Mean Corpuscular Hemoglobin 33.5 PG (27.0-31.0) H Mean Corpuscular Hemoglobin Concent 35.0 G/DL (32.0-36.0) Red Cell Distribution Width 13.2 % (11.6-14.8) Platelet Count 452 K/UL (150-450) H Mean Platelet Volume 6.9 FL (6.5-10.1) Neutrophils (%) (Auto) 71.5 % (45.0-75.0) Lymphocytes (%) (Auto) 12.8 % (20.0-45.0) L Monocytes (%) (Auto) 10.3 % (1.0-10.0) H Eosinophils (%) (Auto) 4.6 % (0.0-3.0) H Basophils (%) (Auto) 0.7 % (0.0-2.0) Sodium Level 137 MMOL/L (136-145) Potassium Level 4.2 MMOL/L (3.5-5.1) Chloride Level 104 MMOL/L (98-107) Carbon Dioxide Level 26 MMOL/L (21-32) Anion Gap 7 mmol/L (5-15) Blood Urea Nitrogen 13 mg/dL (7-18) Creatinine 1.4 MG/DL (0.55-1.30) H Estimat Glomerular Filtration Rate 51.2 mL/min (>60) Glucose Level 98 MG/DL (74-106) Calcium Level 9.3 MG/DL (8.5-10.1) Objective HEENT: normocephalic, atraumatic, anicteric, PERRL, dry mucous membrane Neck: no JVD, no carotid bruit. Respiratory/Chest: chest wall non-tender, lungs clear, normal breath sounds, no respiratory distress, no accessory muscle use Cardiovascular/Chest: Normal S1S2, no murmurs, gallops or rubs, rate,regular rhythm. Abdomen: normal bowel sounds, soft, no organomegaly, no mass, other - mild epigastric ttp Extremities: normal range of motion, non-tender, normal inspection, no calf tenderness, normal capillary refill, non-pitting Skin Exam: normal pigmentation, warm/dry Neurologic: no motor/sensory deficits, alert, oriented x 3, responsive, normal mood/affect Luis Patel MD Aug 10, 2018 23:57
--- NOTE | 2018-08-12 14:57 | NUR ---
CASE MANAGEMENT: CM review and clinical information (face sheet/ DC summary/ operative notes/ H&P/ ER MD Notes) faxed to [facility] Dept @ [phone]
== END 2018-08-10 12:40 | disposition home or self-care (01) | DRG 414 ==
LOC: EDUNIT# 16:16 → EDBD 16:16 → EMR 18:30 → 3E 19:08 → EDBEDREQ 20:51 → 2W 07-12 13:44 → ICU 07-12 20:24 → 2W 07-19 18:30 → 4E 07-25 10:23 → 2E 07-25 12:24 → ICU 07-27 03:00 → 2E 07-28 20:59 → 4E 08-07 10:56
PROC: 5A1945Z Respiratory Ventilation, 24-96 Consecutive Hours (ICD-10-PCS; principal; 2018-07-12 10:37)
PROC: 0FT40ZZ Resection of Gallbladder, Open Approach (ICD-10-PCS; principal; 2018-07-12 10:37)
PROC: 0F798DZ Dilation of Common Bile Duct with Intraluminal Device, Via Natural or Artificial Opening Endoscopic (ICD-10-PCS; principal; 2018-07-12 10:37)
PROC: 0FJ44ZZ Inspection of Gallbladder, Percutaneous Endoscopic Approach (ICD-10-PCS; principal; 2018-07-12 10:37)
PROC: 02HV33Z Insertion of Infusion Device into Superior Vena Cava, Percutaneous Approach (ICD-10-PCS; 2018-07-17)
PROC: B548ZZA Ultrasonography of Superior Vena Cava, Guidance (ICD-10-PCS; 2018-07-17)
PROC: 0DJ08ZZ Inspection of Upper Intestinal Tract, Via Natural or Artificial Opening Endoscopic (ICD-10-PCS; 2018-07-27)
PROC: 0DH63UZ Insertion of Feeding Device into Stomach, Percutaneous Approach (ICD-10-PCS; 2018-07-27)
PROC: 0W993ZZ Drainage of Right Pleural Cavity, Percutaneous Approach (ICD-10-PCS; 2018-07-30)
DX: K85.20 Alcohol induced acute pancreatitis without necrosis or infection (principal); A41.9 Sepsis, unspecified organism; R65.21 Severe sepsis with septic shock; G93.41 Metabolic encephalopathy; J96.01 Acute respiratory failure with hypoxia; J15.6 Pneumonia due to other Gram-negative bacteria; K80.00 Calculus of gallbladder with acute cholecystitis without obstruction; F10.239 Alcohol dependence with withdrawal, unspecified; J90 Pleural effusion, not elsewhere classified; E87.0 Hyperosmolality and hypernatremia; N17.9 Acute kidney failure, unspecified; D62 Acute posthemorrhagic anemia; I47.1 Supraventricular tachycardia; Z99.11 Dependence on respirator [ventilator] status; K82.A1 Gangrene of gallbladder in cholecystitis; Z53.31 Laparoscopic surgical procedure converted to open procedure; K70.0 Alcoholic fatty liver; K70.10 Alcoholic hepatitis without ascites; Z72.0 Tobacco use; D69.6 Thrombocytopenia, unspecified; D75.1 Secondary polycythemia; E86.0 Dehydration; E87.6 Hypokalemia; Y95 Nosocomial condition; I48.0 Paroxysmal atrial fibrillation; R13.10 Dysphagia, unspecified; B19.20 Unspecified viral hepatitis C without hepatic coma; R62.7 Adult failure to thrive; Z68.24 Body mass index [BMI] 24.0-24.9, adult; I10 Essential (primary) hypertension; K29.70 Gastritis, unspecified, without bleeding; K57.10 Diverticulosis of small intestine without perforation or abscess without bleeding
CPT/HCPCS: 36415; 36569; 36600; 70450; 71045; 71260; 74018; 74176; 74177; 74181; 74230; 74328; 76000; 76700; 76937; 76942; 80048; 80053; 80061; 80202; 81001; 81003; 82140; 82150; 82248; 82803; 82962; 83036; 83605; 83690; 83735; 84100; 84484; 85007; 85025; 85610; 85651; 85730; 86140; 86705; 86709; 86803; 86850; 86900; 86901; 86920; 87040; 87070; 87075; 87086; 87181; 87205; 87340; 93005; 93306; 94002; 94003; 94150; 94640; 94664; 94760; 96361; 96374; 96375; 96376; 99285; J0282; J1815; J2250; J2310; J2370; J2405; J7620; J8499

== ENCOUNTER 2018-08-12 07:18 | Emergency (ER) | payer OTHER ==
[~2018-08-12] VITALS: Ht 172.7 cm; Wt 72.6 kg
[~2018-08-12 07:18] MED LIST changes: +INDERAL20 MG ORAL
--- NOTE | 2018-08-12 07:45 | NUR ---
ED Nurse Note: patient was brought by his from home, due to being instructed by [facility] RN Keshawn Neely to "come for ERCP for stent removal and G tube removal in September 2018." AAO x 4, HR 108, ERMD aware. skin is dry intact, warm to touch. patient ambulatory, has steady gait. pt. was placed in gown and connected to the monitor, will continue to monitor.
[2018-08-12 07:51] VITALS: BP 115/70
--- NOTE | 2018-08-12 09:22 | Emergency Room Report ---
History of Present Illness General Chief Complaint: Malfunctioning Gastric Tube Source: Patient Present Illness HPI Patient released from this hospital after a cholecystectomy, pancreatitis, status post PEG tube placement. Patient returns to the emergency department because he was not given directions on how to use a PEG tube, apparently. The patient is taking food by mouth. He denies any vomiting. Denies any pain. Allergies: Coded Allergies: No Known Allergies (Unverified , 06/01/16) Patient History Past Medical History: see triage record, old chart reviewed Past Surgical History: jocelyn Social History: Reports: alcohol use Nursing Documentation-H Hx Cardiac Problems: No Hx Cancer: No Hx Gastrointestinal Problems: Yes Hx Neurological Problems: No Review of Systems All Other Systems: negative except mentioned in HPI Physical Exam Vital Signs Date Time Temp Pulse Resp B/P (MAP) Pulse Ox O2 Delivery O2 Flow Rate FiO2 08/12/18 07:33 97.9 118 19 119/85 95 Room Air General Appearance: well appearing, no apparent distress Head: normocephalic, atraumatic Neck: full range of motion, supple Respiratory: no respiratory distress, speaking full sentences Gastrointestinal: normal inspection, other - PEG tube intact Musculoskeletal: no calf tenderness Neurologic: alert, oriented x3, normal gait Medical Decision Making Diagnostic Impression: Primary Impression: Malfunction of percutaneous endoscopic gastrostomy (PEG) tube ER Course I did extensive review of the chart. The patient is tolerating a by mouth challenge. And therefore, the PEG tube does not to be removed or utilized at this time. The patient has a prescription for removal of the PEG tube in September. I have relayed this message to the patient and the at bedside. The PEG tube was flushed. There is no complications. The patient is afebrile. The patient has no abdominal pain at this time. Last Vital Signs Date Time Temp Pulse Resp B/P (MAP) Pulse Ox O2 Delivery O2 Flow Rate FiO2 08/12/18 07:51 98.0 108 18 115/70 99 Room Air Disposition: HOME, SELF-CARE Condition: Stable Referrals: NON PHYSICIAN (PCP) Additional Instructions: Continue with prescribed diet by mouth TIAGO CHO Aug 12, 2018 09:22
[2018-08-12 09:44] VITALS: BP 135/75
--- NOTE | 2018-08-12 09:47 | NUR ---
ED Nurse Note: patient was DC home, AAO x 4, ambulatory, VSS at this time, patient's was taught how to flash G tube, verbalised understanding. all belongings were given to the patient. arm band removed
== END 2018-08-12 09:49 | disposition home or self-care (01) ==
LOC: EMR 08:46
DX: K94.23 Gastrostomy malfunction (principal); Y83.3 Surgical operation with formation of external stoma as the cause of abnormal reaction of the patient, or of later complication, without mention of misadventure at the time of the procedure; Z90.49 Acquired absence of other specified parts of digestive tract
CPT/HCPCS: 99283

== ENCOUNTER 2020-02-17 22:24 | Emergency (ER) | payer MEDICAID, MEDICARE, OTHER ==
[~2020-02-17] VITALS: Ht 172.7 cm; Wt 81.6 kg
--- NOTE | 2020-02-17 22:28 | Emergency Room Report ---
History of Present Illness General Source: Patient Present Illness HPI This is a 64-year-old male who is right-hand dominant. He presents with chief complaint of left shoulder pain. He said he tripped over his dog and made on his left shoulder. This occurred just prior to arrival. Pain is to the left shoulder. Worse with movement. Better with rest. He said pain was severe 10 out of 10. And he drank a sixpack because of the pain. He denies any head injury. Did not pass out. Allergies: Coded Allergies: No Known Allergies (Unverified , 06/01/16) Patient History Past Medical History: see triage record, old chart reviewed Past Surgical History: other Pertinent Family History: none Social History: Reports: alcohol use Immunizations: other Reviewed Nursing Documentation: PMH: Agreed; PSxH: Agreed Nursing Documentation-PMH Hx Cardiac Problems: No Hx Cancer: No Hx Gastrointestinal Problems: Yes Hx Neurological Problems: No Review of Systems Eye: Denies: eye pain, blurred vision ENT: Denies: ear pain, nose congestion, throat swelling Respiratory: Denies: cough, shortness of breath Cardiovascular: Denies: chest pain, palpitations Gastrointestinal: Denies: abdominal pain, diarrhea, nausea, vomiting Musculoskeletal: Reports: joint pain; Denies: back pain Skin: Denies: rash Neurological: Denies: headache, numbness Endocrine: Denies: increased thirst, increased urine Hematologic/Lymphatic: Denies: easy bruising All Other Systems: negative except mentioned in HPI Physical Exam Sp02 EP Interpretation: reviewed, normal General Appearance: well appearing, no apparent distress, alert Head: normocephalic, atraumatic Eyes: bilateral eye PERRL, bilateral eye EOMI ENT: hearing grossly normal, normal pharynx Neck: full range of motion, supple, no meningismus Respiratory: chest non-tender, lungs clear, normal breath sounds Cardiovascular #1: regular rate, rhythm, no murmur Gastrointestinal: normal bowel sounds, non tender, no mass, no organomegaly, no bruit, non-distended Musculoskeletal: back normal, gait/station normal, other - Left shoulder: There is tenderness to the proximal humerus. Patient is in a sling. Sensation normal. Elbow is nontender. Wrist nontender. Psychiatric: mood/affect normal Procedures Splinting Splinting : Consent: Verbal Location: Left shoulder Pre-Made Type: Shoulder immobilizer Pre-Proc Neuro Vasc Exam: normal Post-Proc Neuro Vasc Exam: normal Patient Tolerated: Well Complications: None Medical Decision Making Diagnostic Impression: Primary Impression: Humerus head fracture Qualified Codes: S42.292A - Other displaced fracture of upper end of left humerus, initial encounter for closed fracture Additional Impressions: Alcohol intoxication Qualified Codes: F10.920 - Alcohol use, unspecified with intoxication, uncomplicated Hypotension Qualified Codes: I95.9 - Hypotension, unspecified ER Course Patient presents with fall with humeral head fracture. He was hypotensive here. Initial blood pressure was systolic in the 70-80. After a couple of liters IV fluid, his systolic blood pressure increased to the 90s. Now is 107/ 77. He was admitted previously for pancreatitis. He does have elevated alcohol level here. Also positive for benzodiazepine. I suspect the combination of alcohol and benzodiazepine and lack of fluids causing his hypotension. Patient slept for several hours. Now he is awake. Blood pressure now 120/77. Patient admits to drinking alcohol tonight. He also has been taking Librium. He was at the [facility] 2 days ago for alcohol intoxication. They placed him on Librium. Explained to the patient that he cannot take Librium and drink at the same time. This will drop his blood pressure. Since he felt better, he wants to go home. EKG Diagnostic Results Rate: normal Rhythm: NSR ST Segments: no acute changes Rhythm Strip Diag. Results EP Interpretation: yes Rate: 70 Rhythm: NSR, no PVC's, no ectopy Chest X-Ray Diagnostic Results Chest X-Ray Diagnostic Results : Chest X-Ray Ordered: Yes # of Views/Limited/Complete: 1 View Indication: Chest Pain EP Interpretation: Yes Interpretation: no consolidation, no effusion, no pneumothorax, no acute cardiopulmonary disease Impression: No acute disease Electronically Signed by: Janes Neely MD Other X-Ray Diagnostic Results Other X-Ray Diagnostic Results : X-Ray ordered: Left Shoulder xrays # of Views/Limited Vs Complete: 3 View Indication: Pain EP Interpretation: Yes Interpretation: no dislocation, no soft tissue swelling, other - comminuted humeral head frx Impression: Other - humeral head frx Electronically Signed by: Janes Neely MD Status: improved Disposition: HOME, SELF-CARE Condition: Stable Scripts Hydrocodone/Acetaminophen 5-325* (HYDROCODONE/ACETAMINOPHEN 5-325*) 1 Each Tablet 1 TAB ORAL Q6H PRN for For Pain, #30 TAB 0 Refills Prov: Janes Neely MD 02/18/20 Additional Instructions: Do not take Librium with alcohol. Follow-up with your doctor in 2 to 3 days. You will need a referral to see orthopedic doctor. Return if symptoms worsen. Janes Neely MD Feb 17, 2020 22:28
[2020-02-17] MEDS ORDERED: HYDROcodone/Acetamin 5/325 tab ORAL ONE (22:30)
[2020-02-17 22:35] VITALS: BP 72/54
[2020-02-17 22:57] LABS: BASOPHILS % (AUTO) 0.5 % (0.0-2.0); EOSINOPHILS % (AUTO) 1.5 % (0.0-3.0); HEMATOCRIT 40.3 % (42.0-52.0); HEMOGLOBIN 13.9 G/DL (14.2-18.0); LYMPHOCYTES % (AUTO) 19.1 % (20.0-45.0); MEAN CORPUSCULAR VOLUME 106 FL (80-99); NEUTROPHILS % (AUTO) 70.9 % (45.0-75.0); PLATELET COUNT 231 K/UL (150-450); RED BLOOD COUNT 3.82 M/UL (4.70-6.10); RED CELL DISTRIBUTION WIDTH 11.2 % (11.6-14.8); WHITE BLOOD COUNT 9.6 K/UL (4.8-10.8)
[2020-02-17 23:09] LABS: ANION GAP 14 mmol/L (5-15); BLOOD UREA NITROGEN 11 mg/dL (7-18); CALCIUM 8.4 MG/DL (8.5-10.1); CARBON DIOXIDE 19 MMOL/L (21-32); CHLORIDE 101 MMOL/L (98-107); CREATININE 1.7 MG/DL (0.55-1.30); POTASSIUM 3.9 MMOL/L (3.5-5.1); SODIUM 134 MMOL/L (136-145)
[2020-02-17 23:17] VITALS: BP 83/61
[2020-02-17 23:20] LABS: APPEARANCE,URINE CLEAR; BILIRUBIN, URINE NEGATIVE (NEGATIVE); COLOR,URINE PALE YELLOW; GLUCOSE, URINE (UA) NEGATIVE (NEGATIVE); KETONES,URINE NEGATIVE (NEGATIVE); LEUKOCYTE ESTERASE ,URINE 1+ (NEGATIVE); NITRITE,URINE NEGATIVE (NEGATIVE); PH,URINE 6 (4.5-8.0); PROTEIN,URINE NEGATIVE (NEGATIVE); UROBILINOGEN,URINE NORMAL MG/DL (0.0-1.0)
[2020-02-17 23:56] LABS: ALANINE AMINOTRANSFERASE 58 U/L (12-78)
[2020-02-17 23:59] LABS: BILIRUBIN,TOTAL 0.3 MG/DL (0.2-1.0)
[2020-02-18 00:21] VITALS: BP 90/66
[2020-02-18 01:14] VITALS: BP 107/77
[2020-02-18] MEDS ORDERED: Morphine Sulfate 4mg/ml Inj (IV USE ONLY) IVP ONE (02:15)
[2020-02-18] MEDS ORDERED: HYDROCODON-ACE1 EA15 ORAL (02:31)
[2020-02-18 02:35] VITALS: BP 120/78
--- NOTE | 2020-02-18 16:44 | Diagnostic Imaging Report ---
Indication: Pain, trauma, status post fall Technique: 2 views of the left shoulder Comparison: none Findings: Exam is limited due to the availability of only 2 views. There is a comminuted fracture of the left humeral head. No definite dislocations. Impression: Positive for comminuted left humeral head fracture
--- NOTE | 2020-02-18 16:46 | Diagnostic Imaging Report ---
Indication: Chest pain Technique: One view of the chest Comparison: 08/09/2018 Findings: The lungs and pleural spaces are clear. The heart size is normal. Previously demonstrated right upper lobe consolidative opacities are not evident currently. Previously demonstrated left arm PICC is not evident currently. There are surgical clips in the gastroesophageal junction region again noted. Impression: No acute process
== END 2020-02-18 02:35 | disposition home or self-care (01) ==
LOC: EDBD 22:24 → EMR 22:34
DX: S42.292A Other displaced fracture of upper end of left humerus, initial encounter for closed fracture (principal); F10.129 Alcohol abuse with intoxication, unspecified; I95.9 Hypotension, unspecified; W01.0XXA Fall on same level from slipping, tripping and stumbling without subsequent striking against object, initial encounter; Y92.9 Unspecified place or not applicable
CPT/HCPCS: 36415; 71045; 73030; 80048; 80307; 81001; 82247; 83690; 84450; 84460; 84484; 85025; 93005; 96361; 96374; 99284; G0480; J2270; J7030; U0002